=== PATIENT | female | born 1980 | race Caucasian/White ===

== ENCOUNTER → 2016-12-15 | Outpatient (CLI) | payer MEDICAID ==
[~2016-12-15] MED LIST: AMOX500C2 PO; CRUT1EAC16 MC; CYAN10007 PO; HYDR-3812 PO; IBP800T PO; IBUP800T26 PO; METR500T PO; ONDA8TAB13 PO; PREN1TAB39 PO; THIA50TA7 PO; TRAM50TA2 PO; TRM50T PO; VITAMIN A&D; VITAMIN B6 PO
--- OUTSIDE RECORDS SUMMARY | 2016-12-15 15:15 | XMS REPORT | Continuity of Care Document ---
Author Author [facility] Organization [facility] Address Unknown Phone Unavailable Care Team Providers Care Analytical Research Program Manager Name Role Phone [facility] OF PCP Insurance Providers Payer Name Policy Number Subscriber Name Relationship Medicaid [place] [id number] Eric York Self / Same As Patient Advance Directives Directive Response Recorded Date/Time Advance Directives No 04/21/15 9:35pm Health Care Power of Inhalation Therapy Aide No 04/21/15 9:35pm Organ Donor Yes 04/21/15 9:35pm Resuscitation Status Full Code 04/21/15 9:35pm Problems Medical Problems Problem Onset Date Status Cervical radiculopathy Unknown Active Headache Unknown Active Dental caries Unknown Active Gingivitis Unknown Active Dental caries Unknown Active Medications Medication Dose Route Sig Days/Qty Instructions Order Date Discontinued Date Status Vits W-Ca,Fe,Fa(<1MG) 1 Tab PO DAILY 07/05/10 06/14/13 Discontinued Ibuprofen 800 Mg PO GIVE EVERY 8 HRS ON SCHEDULE PRN 30 Qty 06/14/13 10/17/13 Discontinued Thiamine HCl 50 Mg PO DAILY 09/28/13 10/17/13 Discontinued Cyanocobalamin 1,000 Mcg PO DAILY 09/28/13 02/15/15 Discontinued Tramadol HCl 50 Mg PO EVERY 4HRS PRN PAIN 20 Qty 09/28/13 10/17/13 Discontinued [Vitamin B6] PO DAILY 10/17/13 02/15/15 Discontinued [Vitamin A&D] 10/17/13 02/15/15 Discontinued Amoxicillin 2 Each PO THREE TIMES A DAY 60 Qty 02/21/14 02/15/15 Discontinued Tramadol Hcl 50 Mg PO EVERY 4HRS PRN PAIN 14 Qty 02/21/14 02/15/15 Discontinued Ibuprofen (Motrin) 800 Mg PO q8h PRN PAIN 30 Qty 02/21/14 02/15/15 Discontinued Ondansetron 8 Mg PO EVERY 6 HOURS PRN NAUSEA/VOMITING 10 Qty 02/21/14 02/15/15 Discontinued Tramadol Hcl 50 Mg PO EVERY 6 HOURS PRN PAIN PRN PAIN 02/15/15 Active Amoxicillin 1 Each PO THREE TIMES A DAY 21 Qty 04/21/15 Active Social History Social History Problem Response Recorded Date/Time Alcohol Use Occasionally Uses 04/21/2015 9:35pm Recreational Drug Use No 04/21/2015 9:35pm Recent Foreign Travel No 04/21/2015 9:32pm Recent Infectious Disease Exposure No 04/21/2015 9:32pm Hospitalization with Isolation Denies 04/21/2015 9:32pm Sexually Transmitted Disease No 04/21/2015 9:35pm Smoking Status Never a Smoker 04/21/2015 9:35pm Query Response Start Date Stop Date Smoking Status Never a Smoker Hospital Discharge Instructions No hospital discharge instructions. Plan of Care No plan of care. Functional Status No functional status results. Allergies, Adverse Reactions, Alerts Allergen Type Severity Reaction Status Last Updated Sulfa (Sulfonamide Antibiotics) ([id number]) Adverse Reaction Unknown DECREASE KIDNEY FUNCTION Active 02/15/15 Morphine Allergy Unknown SEVERE N/V Active 02/15/15 prednisone ([id number]) Adverse Reaction Mild Active 07/03/09 Immunizations Name Given Type Tetanus Booster (TDap) Unknown Historical Vital Signs Acute Vital Signs Vital Response Date/Time Temperature (Fahrenheit) 99.4 degrees F (97.6 - 99.5) Temperature (Calculated Celsius) 37.05375 degrees C (36.4 - 37.5) Temperature Source Temporal Pulse Rate (adult) 82 bpm (60 - 90) Respiratory Rate 18 bpm (12 - 24) O2 Sat by Pulse Oximetry 98 % (88 - 100) Blood Pressure 120/86 mm Hg Pain Pain Intensity 5 Height (Feet) 5 feet Height (Inches) 6 inches Height (Calculated Centimeters) 167.948812 cm Weight (Pounds) 170 pounds Weight (Calculated Kilograms) 77.516132 kilograms Calculated BMI 27.44 Results No known relevant diagnostic tests, laboratory data and/or discharge summary. Procedures No known history of procedures. Encounters Encounter Location Date/Time Departed Emergency Room Via [facility] 04/21/15 9:22pm Recent Diagnosis
--- NOTE | 2016-12-15 18:53 | Diagnostic Imaging Report ---
Ultrasound of Left lower extremity, nonvascular INDICATION: Left groin pain. FINDINGS: Spectral and color-flow imaging of the arterial system of the left groin was performed. There is generally good arterial and venous flow evident. There is no sign of thrombosis. During the course of the exam, a 1.1 x 2.5 x 0.8 cm hypoechoic lesion with a hyperechoic center was identified in the left groin. Most likely, this represents an enlarged lymph node. The reason for the enlargement of the lymph node, however, is not certain. IMPRESSION: 1. There is no vascular abnormality of the left groin. 2. There does appear to be an enlarged lymph node in this area. Clinical followup is recommended. Dictated by: Dictated on workstation # [id number]
== END ==
LOC: RAD 15:12
PROVIDERS: ATTEND Nurse Practitioner Community Health
DX: R10.32 Left lower quadrant pain (principal)
CPT/HCPCS: 76881

== ENCOUNTER → 2017-01-22 | Outpatient (CLI) | payer MEDICAID ==
[~2017-01-22] MED LIST changes: +CATHETER FLUSH 10 ML SYR IV PRN; +IOHEXOL 350 MG/ML 100 ML (OMNIPAQUE 350) VIAL IV ONE; +NS 100 ML (IVPB) BAG IV ONE
--- OUTSIDE RECORDS SUMMARY | 2017-01-22 13:16 | XMS REPORT | Continuity of Care Document ---
Author Author [facility] Organization [facility] Address Unknown Phone Unavailable Care Team Providers Care Picker And Packer Name Role Phone [facility] PCP Insurance Providers Payer Name Policy Number Subscriber Name Relationship Medicaid [place] [id number] Eric York Self / Same As Patient Advance Directives Directive Response Recorded Date/Time Advance Directives No 04/21/15 9:35pm Health Care Power of Oil Exploration Engineer No 04/21/15 9:35pm Organ Donor Yes 04/21/15 [...] Reaction Status Last Updated Sulfa (Sulfonamide Antibiotics) ([id number]) Adverse Reaction Unknown DECREASE KIDNEY FUNCTION Active 02/15/15 Morphine Allergy Unknown SEVERE N/V Active 02/15/15 prednisone ([id number]) Adverse Reaction Mild Active 07/03/09 Immunizations Name Given Type Tetanus Booster (TDap) Unknown Historical Vital Signs Acute Vital Signs Vital Response Date/Time Temperature (Fahrenheit) 99.4 degrees F (97.6 - 99.5) Temperature (Calculated Celsius) 37.34891 degrees C (36.4 - 37.5) Temperature Source Temporal Pulse Rate (adult) 82 bpm (60 - 90) Respiratory Rate 18 bpm (12 - 24) O2 Sat by Pulse Oximetry 98 % (88 - 100) Blood Pressure 120/86 mm Hg Pain Pain Intensity 5 Height (Feet) 5 feet Height (Inches) 6 inches Height (Calculated Centimeters) 167.637981 cm Weight (Pounds) 170 pounds Weight (Calculated Kilograms) 77.679442 kilograms Calculated BMI 27.44 Results No known relevant diagnostic tests, laboratory data and/or discharge summary. Procedures No known history of procedures. Encounters Encounter Location Date/Time Departed Emergency Room Via [facility] 04/21/15 9:22pm Recent Diagnosis
--- NOTE | 2017-01-22 14:49 | Diagnostic Imaging Report ---
PROCEDURE; CT pelvis with and without contrast. TECHNIQUE: After oral contrast administration, imaging was obtained from the iliac crest to the lesser trochanters. Repeat imaging was performed after intravenous contrast administration. INDICATION: Pelvic pain. CONTRAST: 100 mL of Omnipaque 350 is administered intravenously. FINDINGS: The uterus is some slightly prominent in size with no discrete mass. There is an intrauterine contraceptive device seen. The urinary bladder appears normal. There are calcifications seen on the unenhanced phase in the pelvis that appears to be related to phleboliths with no ureteric or bladder stones seen within the pelvis. There is a minimal amount of free pelvic fluid of uncertain significance. There is no lymphadenopathy or soft tissue mass in the pelvis. The bowel loops are unopacified on this study performed without oral contrast. A small cystic area in the left adnexal region measuring 2.3 cm may relate to a dominant right ovarian follicle. The osseous structures appear grossly unremarkable. IMPRESSION: 1. No lymphadenopathy or soft tissue mass. 2. Suggestion of prominent follicles in the right ovary and nonspecific tiny amount of free pelvic fluid seen. The uterus is slightly prominent in size. Correlate clinically and with pelvic ultrasound as needed. Dictated by: Dictated on workstation # [id number]
== END ==
LOC: RAD 13:13
PROVIDERS: ATTEND Nurse Practitioner Community Health
DX: R10.2 Pelvic and perineal pain (principal); M54.17 Radiculopathy, lumbosacral region
CPT/HCPCS: 72194

== ENCOUNTER 2017-03-03 05:43 | Outpatient (CLI) | payer MEDICAID ==
[~2017-03-03] VITALS: Ht 167.6 cm; Wt 72.6 kg
[~2017-03-03 05:43] MED LIST changes: -CATHETER FLUSH 10 ML SYR IV PRN; -HYDR-3812 PO; -IOHEXOL 350 MG/ML 100 ML (OMNIPAQUE 350) VIAL IV ONE; -METR500T PO; -NS 100 ML (IVPB) BAG IV ONE
[2017-03-06] MEDS ORDERED: HYDR-3812 PO (13:28)
[2017-03-06] MEDS ORDERED: METR500T PO (13:30)
== END 2017-03-03 12:47 ==
LOC: PREOP 05:43
PROVIDERS: ATTEND Surgery
DX: Z01.818 Encounter for other preprocedural examination (principal); K62.5 Hemorrhage of anus and rectum; Z83.71 Family history of colonic polyps

== ENCOUNTER 2017-03-06 10:08 | Day surgery (SDC) | payer MEDICAID ==
[~2017-03-06] VITALS: Ht 167.6 cm; Wt 72.6 kg
[2017-03-06] MEDS ORDERED: CATHETER FLUSH 10 ML SYR IV PRN (10:30)
[2017-03-06] MEDS ORDERED: ceFAZolin 1 GM/NS 50 ML IVPB IV ONE ×2 (10:30)
[2017-03-06 10:38] VITALS: BP 110/79
[2017-03-06] MEDS ORDERED: LACTATED RINGERS 1,000 ML IV PRN (11:01)
[2017-03-06] MEDS ORDERED: SEVOFLURANE (ULTANE) 15 ML INHAL SOLN ONE ×3 (11:05→13:42)
[2017-03-06] MEDS ORDERED: proPOfol 200 MG/20 ML (DIPRIVAN) VIAL IV ONE (11:05)
[2017-03-06] MEDS ORDERED: LIDOCAINE PF 2% 10 ML (XYLOCAINE) AMP ONE (11:05)
[2017-03-06] MEDS ORDERED: ONDANSETRON 4 MG/2 ML (SDV) Z0FRAN ONE ×2 (11:05→14:33)
[2017-03-06] MEDS ORDERED: fentaNYL INJECTION 100 MCG/2 ML AMP ONE (11:06)
[2017-03-06] MEDS ORDERED: MIDAZOLAM 2 MG/2 ML (VERSED) VIAL ONE (11:06)
--- NOTE | 2017-03-06 12:16 | Progress Note-Pre Operative ---
Pre-Operative Progress Note H&P Reviewed The H&P was reviewed, patient examined and no changes noted. Date H&P Reviewed: Mar 06, 2017 Time H&P Reviewed: 12:16 Pre-Operative Diagnosis: pROLAPSING HEMORRHOIDS. FAMILY h/o POLYPS MAYELIN JACQUES MD Mar 06, 2017 12:16 pm
[2017-03-06] MEDS ORDERED: LACTATED RINGERS 1,000 ML IV SCH (13:15)
[2017-03-06] MEDS ORDERED: HYDR-3812 PO (13:28)
--- NOTE | 2017-03-06 13:28 | Progress Note-Post Operative ---
Post-Operative Progess Note Surgeon (s)/Bath Attendant (s) Surgeon MAYELIN JACQUES MD Bath Attendant: Elsa. Pre-Operative Diagnosis pROLAPSING HEMORRHOIDS. FAMILY h/o POLYPS Post-Operative Diagnosis normal colonoscopy. Prolapsing hemorrhoids Post-Op Procedure Note Date of Procedure: Mar 06, 2017 Name of Procedure Performed: colonoscopy to cecum Stapled hemorrhoidopexy Description of the Procedure: see operative report Findings of the Procedure no polyps. Grade 3 hemorrhoids. Anesthesia Type Gen. Estimated blood loss (mL): minimal Specimen(s) collected/removed hemorrhoidal tissue MAYELIN JACQUES MD Mar 06, 2017 1:28 pm
[2017-03-06] MEDS ORDERED: METR500T PO (13:30)
--- NOTE | 2017-03-06 13:31 | Discharge Inst-Simple/Standard ---
Discharge Inst-Standard Discharge Medications New, Converted or Re-Newed RX: RX on Chart Patient Instructions/Follow Up Plan of Care/Instructions/FU: follow-up in 4 weeks. Activity as Tolerated: Yes Discharge Diet: No Restrictions MAYELIN JACQUES MD Mar 06, 2017 1:31 pm
[2017-03-06] MEDS ORDERED: LACTATED RINGERS 1,000 ML IV ONE (13:42)
[2017-03-06] MEDS ORDERED: GLYCOPYRROLATE 0.2 MG/ML (ROBINUL) 2 ML VIAL ONE (13:42)
[2017-03-06] MEDS ORDERED: NEOSTIGMINE (BLOXIVERZ ) 1 MG/1ML 10 ML VIAL ONE (13:42)
[2017-03-06] MEDS ORDERED: ONDANSETRON 4 MG/2 ML (SDV) Z0FRAN IVP PRN (13:45)
[2017-03-06] MEDS ORDERED: MEPERIDINE (DEMEROL) INJ 50 MG/ML IVP PRN (13:45)
[2017-03-06] MEDS ORDERED: HYDROmorphone (DILAUDID) 2 MG/ML VIAL ONE (13:55)
[2017-03-06] MEDS ORDERED: MEPERIDINE (DEMEROL) INJ 50 MG/ML ONE (13:55)
[2017-03-06] MEDS: HYDROmorphone (DILAUDID) 2 MG/ML VIAL IVP PRN ×2 (14:09→14:20)
[2017-03-06 14:50] VITALS: BP 97/67
[2017-03-06] MEDS ORDERED: HYDROcodone/APAP 5 MG/325 MG (LORTAB) TAB ONE (15:11)
[2017-03-06 15:20] VITALS: BP 94/64
[2017-03-06] MEDS ORDERED: HYDROcodone/APAP 5 MG/325 MG (LORTAB) TAB PO ONE (15:30)
[2017-03-06 16:50] VITALS: BP 94/64
--- NOTE | 2017-03-09 11:23 | OPERATIVE REPORT ---
PROCEDURE PHYSICIAN: MAYELIN JACQUES DATE OF PROCEDURE: 03/06/2017 PREOPERATIVE DIAGNOSES: 1. Grade 3 prolapsing hemorrhoids. 2. Rectal bleeding. 3. Family history of polyps. POSTOPERATIVE DIAGNOSES: 1. Grade 3 prolapsing hemorrhoids. 2. Rectal bleeding. 3. Family history of polyps. OPERATION: 1. Colonoscopy. 2. Stapled hemorrhoidopexy. SURGEON: Dr. Jacques. ANESTHESIA: General anesthesia. BLOOD LOSS: Minimal. FLUIDS: 1100 mL crystalloids. TYPE OF WOUND: Type 3 (contaminate wound). INDICATION FOR THE PROCEDURE: This lady presented with symptomatic, prolapsing hemorrhoids with intermittent bleeding. In view of a family history of polyps, it was felt reasonable to perform colonoscopy at the time of surgical management of hemorrhoids. With regard to the latter, minimally invasive technique of stapled hemorrhoidopexy was offered. Informed consent was obtained after reviewing the operative details and complications of postoperative bleeding, infection and recurrence of hemorrhoids. DESCRIPTION OF PROCEDURE: She underwent mechanical bowel preparation including oral antibiotics the day before surgery. Initially, she was placed supine on the gurney and general anesthesia induced. Subsequently, she was turned prone on the operative table and her pressure areas were padded and protected. 1. COLONOSCOPY: Examination of the perianal area revealed multiple skin tags and external hemorrhoids. Physical examination was otherwise unremarkable. The colonoscope was then introduced into the rectum and advanced all the way up to the cecum. The scope was then withdrawn slowly and the mucosa examined in a systematic fashion. FINDINGS: 1. Large internal hemorrhoids. 2. No polyps. 2. STAPLE HEMORRHOIDOPEXY. The circular anal dilator was secured into the rectum using 0 silk sutures. A cuff of rectal mucosa, 4 cm proximal to the dentate line was encircled with a 2-0 Prolene suture. The anvil of the 33 mm EEA stapler introduced into the rectum and the pursestring tied around it. Vaginal examination was performed to ensure intactness of the vaginal musculature. The stapler was then closed, pressure held for 30 seconds and activated. We obtained a cuff of rectal mucosa, 4 cm wide. It was sent for histologic examination. Slight bleeding from the staple line was controlled using cautery. Rigid proctoscopy was performed to ensure intactness of the rectal lumen. The dilator was removed and the patient turned supine before being extubated and taken to the recovery room in a stable condition. Job ID: [id number] Dictated Date: 03/06/2017 13:26:29 Advertising Assistant Date: 03/09/2017 11:10:30 / kenna LAUREANO
== END 2017-03-06 16:55 | disposition home or self-care (01) ==
LOC: SDC 10:08
PROVIDERS: ATTEND Surgery
DX: K64.2 Third degree hemorrhoids (principal); K62.5 Hemorrhage of anus and rectum; Z83.71 Family history of colonic polyps
CPT/HCPCS: 84703; 87081; 88304

== ENCOUNTER 2017-04-24 09:00 | Outpatient (CLI) | payer MEDICAID ==
[~2017-04-24] VITALS: Ht 167.6 cm; Wt 72.6 kg
[~2017-04-24 09:00] MED LIST changes: +HYDR-3812 PO; +METR500T PO
[2017-04-24] MEDS ORDERED: OXYC-465 PO (10:17)
== END 2017-04-24 10:20 ==
LOC: PREOP 09:00
PROVIDERS: ATTEND Surgery
DX: Z01.818 Encounter for other preprocedural examination (principal); K92.1 Melena; K21.9 Gastro-esophageal reflux disease without esophagitis

== ENCOUNTER 2017-04-27 07:51 | Day surgery (SDC) | payer MEDICAID ==
[~2017-04-27] VITALS: Ht 167.6 cm; Wt 72.6 kg
[~2017-04-27 07:51] MED LIST changes: +OXYC-465 PO
[2017-04-27] MEDS ORDERED: NS IV 500 ML 500 ML IV PRN (08:00)
[2017-04-27] MEDS ORDERED: NALOXONE 0.4 MG/ML 1 ML (NARCAN) VIAL IVP PRN (08:00)
[2017-04-27] MEDS ORDERED: HURRICAINE EXT TUBE (BENZOCAINE) XX PRN (08:00)
[2017-04-27] MEDS ORDERED: FLUMAZENIL (ROMAZICON) 0.1 MG/ML 5 ML VIAL INJ PRN (08:00)
[2017-04-27 08:05] VITALS: BP 102/67
[2017-04-27] MEDS ORDERED: NS IV 500 ML 500 ML ONE (08:10)
[2017-04-27] MEDS ORDERED: HURRICAINE EXT TUBE (BENZOCAINE) ONE (10:13)
[2017-04-27] MEDS ORDERED: MIDAZOLAM 2 MG/2 ML (VERSED) VIAL ONE ×3 (10:13)
[2017-04-27] MEDS ORDERED: fentaNYL INJECTION 100 MCG/2 ML AMP ONE (10:13)
[2017-04-27] MEDS: fentaNYL INJECTION 100 MCG/2 ML AMP IVP PRN ×2 (10:15→10:18)
[2017-04-27] MEDS: MIDAZOLAM 2 MG/2 ML (VERSED) VIAL IVP PRN ×2 (10:17→10:20)
--- NOTE | 2017-04-27 10:51 | Conscious Sedation/ASA ---
Conscious Sedation Pre-Proced Time Reviewed: 09:41 ASA Class: 2 Airway Mallampati Classification: (blackfeet appropriate class) I. II. III, IV Lungs Heart ASA score ASA 1: a normal healthy patient ASA 2: a patient with a mild systemic disease (mid diabetes, controlled hypertension, obesity ASA 3: a patient with a severe systemic disease that limits activity (angina , COPD, prior Myocardial infarction) ASA 4: a patient with an incapacitating disease that is a constant threat to life (CHF, renal failure) ASA 5: a moribund patient not expected to survive 24 hrs. (ruptured aneurysm) ASA 6: a declared brain patient whose organs are being harvested. For emergent operations, add the letter E after the classification Grade 1 Sedation Plan: Discussed options with patient/fam Note The patient is an appropriate candidate to undergo the planned procedure, sedation, and anesthesia. The patient immediately re-assessed prior to indication. AMYELIN JACQUES MD Apr 27, 2017 10:51 am
--- NOTE | 2017-04-27 10:52 | Endoscopy Procedure Report ---
Endoscopy Report Date: Apr 27, 2017 Preoperative Diagnosis: GERD. Melena Study Performed: Upper Endoscopy Procedure Instrument: Endoscope Endo Procedure/Findings Findings 1.: Hiatal Hernia, Gastric Ulcer Recommendations: Recommendations: 1.: Start Medication(s) Copy Copies To 1: CAITLYN ARGUETA XAVIER M MD Apr 27, 2017 10:52 am
[2017-04-27] MEDS ORDERED: PANT40TA2 PO (10:53)
--- NOTE | 2017-04-27 10:54 | Discharge Inst-Simple/Standard ---
Discharge Inst-Standard Discharge Medications New, Converted or Re-Newed RX: RX on Chart Patient Instructions/Follow Up Plan of Care/Instructions/FU: Follow-up with her primary; to avoid nonsteroidals Activity as Tolerated: Yes Discharge Diet: No Restrictions MAYELIN JACQUES MD Apr 27, 2017 10:53 am
[2017-04-27 10:55] VITALS: BP 103/62
[2017-04-27 11:25] VITALS: BP 95/58
--- NOTE | 2017-04-27 11:45 | OPERATIVE REPORT ---
DATE OF SERVICE: 04/27/2017 PROCEDURE: Upper gastrointestinal endoscopy with antral biopsy. SURGEON: Mayelin Jacques MD INDICATION FOR PROCEDURE: This lady reported melena and symptoms of gastroesophageal reflux disease. Therefore, it was felt reasonable to perform an upper endoscopy. Informed consent was obtained after reviewing the procedure in detail. DESCRIPTION OF PROCEDURE: She was placed in left lateral decubitus position and her vital signs were monitored. Conscious sedation was achieved using Versed and fentanyl. The flexible gastroscope was then introduced down the esophagus, passed the stomach, into the proximal duodenum. FINDINGS: ESOPHAGUS: Short hiatal hernia with grade II esophagitis. STOMACH: Multiple shallow ulcers were found at the distal stomach and the antral. Biopsy for Helicobacter was obtained. DUODENUM: Normal. She tolerated the procedure well and was taken back to the nursing area in a stable condition. IMPRESSION: Melena and symptoms of reflux disease. Distal gastric and antral ulcers. Helicobacter status pending. Job ID: [id number] DocumentID: [id number] Dictated Date: 04/27/2017 10:28:49 Corporate Account Executive Date: 04/27/2017 11:26:26 Dictated By: MAYELIN JACQUES MD MTDD
== END 2017-04-27 11:38 | disposition home or self-care (01) ==
LOC: ENDO 07:51
PROVIDERS: ATTEND Surgery
DX: K25.9 Gastric ulcer, unspecified as acute or chronic, without hemorrhage or perforation (principal); K44.9 Diaphragmatic hernia without obstruction or gangrene; K21.9 Gastro-esophageal reflux disease without esophagitis
CPT/HCPCS: 84703

== ENCOUNTER → 2017-10-09 | Outpatient (CLI) | payer MEDICAID ==
[~2017-10-09] MED LIST changes: +PANT40TA2 PO
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
--- NOTE | 2017-10-09 18:08 | Diagnostic Imaging Report ---
EXAMINATION: Right knee MRI dated 10/09/2017. TECHNIQUE: Multiplanar, multisequence non contrast-enhanced MRI of the right lower extremity was accomplished. INDICATION: Active in sports, prior meniscal tears. Pain and numb sensation. FINDINGS: The extensor mechanism is intact, and the ACL and PCL are also intact. The lateral collateral ligamentous complex is within normal limits. The MCL is unremarkable. There is no evidence for a tear of the lateral meniscus. Posterior horn of the medial meniscus contains myxoid degeneration, but no discrete tear is appreciated. Cystic changes adjacent to the fibular head are most likely due to a ganglion. A small joint effusion is also noted. Cartilage overlying the patella demonstrates diffuse edema and fissuring with mild thinning. Subchondral cystic change in the patella is also noted. The medial joint compartment cartilage is fairly well preserved as is the lateral joint compartment cartilage. Osseous structures demonstrate no acute abnormalities. IMPRESSION: 1. No evidence for a meniscal or ligamentous nor tendinous tear. 2. Cystic changes adjacent to the fibular head likely due to a ganglion. Mild degenerative findings throughout the joint as discussed above. Dictated by: Dictated on workstation # [id number]
== END ==
LOC: RAD 16:02
PROVIDERS: ATTEND Nurse Practitioner
DX: M17.12 Unilateral primary osteoarthritis, left knee (principal); M85.869 Other specified disorders of bone density and structure, unspecified lower leg
CPT/HCPCS: 73721

== ENCOUNTER 2018-03-23 11:57 | Emergency (ER) | payer MEDICAID, OTHER ==
[~2018-03-23] VITALS: Ht 167.6 cm; Wt 71.7 kg
[~2018-03-23 11:57] MED LIST changes: +ACHD5005 PO; -HYDR-3812 PO
--- OUTSIDE RECORDS SUMMARY | 2018-03-23 12:06 | XMS REPORT ---
Author Author FLORENCIA HINOJOSA Organization [facility] Address [address] [place] [address] Care Team Providers Care Fbi Field Agent Name Role Phone FLORENCIA HINOJOSA Unavailable PROBLEMS Type Condition ICD9-CM Code MZO14-QY Code Onset Dates Condition Status SNOMED Code Problem Other chronic pain G89.29 Active 86138078 Problem Mental status change resolved Z86.59 Active 065357680 Problem Memory loss R41.3 Active 21667013 Problem Intractable migraine without aura and without status migrainosus G43.019 Active 566792484 ALLERGIES Substance Reaction Event Type Date Status Prednisone Unknown Drug Allergy Dec, Active SOCIAL HISTORY Never Assessed PLAN OF CARE VITAL SIGNS Height 66 in 2017-01-16 Weight 168.4 lbs 2017-01-16 Temperature 98.1 degrees Fahrenheit 2017-01-16 Heart Rate 72 bpm 2017-01-16 Respiratory Rate 18 2017-01-16 BMI 27.18 kg/m2 2017-01-16 Blood pressure systolic 102 mmHg 2017-01-16 Blood pressure diastolic 60 mmHg 2017-01-16 MEDICATIONS Medication Instructions Dosage Frequency Start Date End Date Duration Status Propranolol HCl 40 MG Orally Twice a day 1 tablet 12h Nov, 30 day(s) Active Estradiol 1 MG Orally Daily for Three Weeks, 1 Week off 1 tablet Active [place] 7.5-325 MG Orally every 6 hrs 1 tablet as needed 6h Dec, Active RESULTS Name Result Date Reference Range CT Scan : Pelvis w/o & w/ Contrast 2017-01-22 PROCEDURES No Known procedures IMMUNIZATIONS No Known Immunizations MEDICAL (GENERAL) HISTORY Type Description Date Medical History Asthma Medical History Hives since 2000 Surgical History spinal fusion 2014 Surgical History Tonsillectomy Surgical History Appendectomy Surgical History section Surgical History epidural anesthesia/injection Surgical History Hemorrhoidecomy with umu Surgical History colonoscopy
--- OUTSIDE RECORDS SUMMARY | 2018-03-23 12:06 | XMS REPORT ---
Author Author FLORENCIA HINOJOSA Organization [facility] [place] Address [address] [place] [address] Care Team Providers Care Chief Nurse Name Role Phone FLORENCIA HINOJOSA Unavailable PROBLEMS Type Condition ICD9-CM Code HYQ06-DP Code Onset Dates Condition Status SNOMED Code Problem Arthritis M19.90 Active 6472979 Problem Chronic fatigue R53.82 Active 81328349 Problem Intractable migraine without aura and without status migrainosus G43.019 Active 645394181 Problem Memory loss R41.3 Active 91810824 Problem Other chronic pain G89.29 Active 70840645 Problem Mental status change resolved Z86.59 Active [id number] ALLERGIES No Information ENCOUNTERS Encounter Location Date Diagnosis [place] [id number] [place] [address] 55504- 1469 March, [place] [id number] [place] [address] 06807- 5651 Feb, Memory loss R41.3 and 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 [place] [id number] [place] [address] 72763- 9493 Feb, Intractable migraine without aura and without status migrainosus G43.019 [place] [id number] [place] [address] 20474- 9165 Jan, Intractable migraine without aura and without status migrainosus G43.019 [place] [id number] [place] [address] 67362- 9556 Dec, [place] [id number] [place] [address] 22519- 0176 Dec, Intractable migraine without aura and without status migrainosus G43.019 [place] [id number] [place] [address] 77501- 5019 Nov, [facility] [place] [address] [address] 8119 Nov, Chronic fatigue R53.82 and Family history of thyroid disease Z83.49 [facility] [place] [id number] [place] [address] 95107- 1946 17 Nov, 2017 Arthritis M19.90 ; Chronic fatigue R53.82 ; Family history of thyroid disease Z83.49 ; Grade IV hemorrhoids K64.3 and Other chronic pain G89.29 [facility] [place] [id number] [place] [address] 09986- 4510 Nov, Intractable migraine without aura and without status migrainosus G43.019 [facility] [place] [id number] [place] [address] 74095- 9953 Oct, [facility] [place] [id number] [place] [address] 65981- 5547 Oct, Intractable migraine without aura and without status migrainosus G43.019 [facility] [place] [id number] [place] [address] 05906- 1291 Oct, [facility] [place] [id number] [place] [address] 62371- 7140 Oct, [facility] [place] [id number] [place] [address] 00213- 8923 Sep, Tremors of nervous system R25.1 [facility] [place] [id number] [place] [address] 77926- 6066 Sep, [facility] [place] [id number] [place] [address] 61743- 3633 Sep, Intractable migraine without aura and without status migrainosus G43.019 [facility] [place] [id number] [place] [address] 26709- 2546 Sep, [facility] [place] [id number] [place] [address] 66538- 1883 Sep, [facility] [place] [address] [address]- 2366 Sep, Acute medial meniscus tear of right knee, initial encounter S83.241A and Acute lateral meniscus tear of left knee, initial encounter S83.282A [facility] [place] [id number] [place] [address] 15295- 8056 Aug, Intractable migraine without aura and without status migrainosus G43.019 [facility] [place] [id number] [place] [address] 67383- 1336 Aug, [facility] [place] [id number] [place] [address] 75496- 6796 Aug, [facility] [place] [id number] [place] [address] 34159- 2356 Jul, [facility] [place] [id number] [place] [address] 15148- 0384 Jul, [facility] [place] [id number] [place] [address] 93301- 8634 Jul, Intractable migraine without aura and without status migrainosus G43.019 ; Memory loss R41.3 ; Mental status change resolved Z86.59 ; Other chronic pain G89.29 and Pain in right knee M25.561 [facility] [place] [id number] [place] [address] 51676- 7601 Jul, [facility] [place] [id number] [place] [address] 75791- 8178 Jun, Tremors of nervous system R25.1 and Pelvic pain R10.2 [facility] [place] [id number] [place] [address] 71690- 6171 Jun, [facility] [place] [id number] [place] [address] 77394- 9381 Jun, [facility] [place] [id number] [place] [address] 04875- 9916 Jun, [facility] [place] [address], [place] [address]- 9216 May, [facility] [place] [id number] [place] [address] 90681- 1049 May, [facility] [place] [address], [place] [address]- 1736 May, Kidney pain N23 [facility] [place] [id number] [place] [address] 09048- 4883 May, Pelvic pain R10.2 [facility] [address] [place] [address] 35890 -4715 May, Wasp sting, accidental or unintentional, initial encounter T63.461A and Allergic contact dermatitis due to other agents L23.89 [facility] [place] [address], [place] [address]- 6279 May, [facility] [place] [address] [place] [address] 13099- 8840 May, Pelvic pain R10.2 [facility] [place] [address], [place] [address]- 4781 May, [facility] [place] [address], [place] [address]- 5752 Apr, Tremors of nervous system R25.1 ; Blood in stool, gabby K92.1 ; 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 ; Memory loss R41.3 and Intractable migraine without aura and without status migrainosus G43.019 [facility] [place] [address], [place] [address] 2546 Apr, Blood in stool, gabby K92.1 [facility] [place] [address], [place] [address] 2546 Apr, Tremors of nervous system R25.1 ; 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 ; Memory loss R41.3 and Intractable migraine without aura and without status migrainosus G43.019 [facility] [place] [address] [address]- 9837 Apr, [facility] [place] [id number] [place] [address] 23090- 5898 Apr, Tremor R25.1 [facility] [place] [id number] [place] [address] 87658- 1141 March, [facility] [place] [id number] [place] [address] 69289- 3782 March, Cyst of right ovary N83.201 [facility] [place] [id number] [place] [address] 53115- 0483 March, Blood in stool, gabby K92.1 and Other fatigue R53.83 [facility] [place] [id number] [place] [address] 97097- 0629 March, Cyst of right ovary N83.201 [facility] [place] [id number] [place] [address] 85027- 0973 Feb, [facility] [place] [id number] [place] [address] 43013- 6253 Feb, [facility] [place] [id number] [place] [address] 07739- 0346 Feb, Cyst of right ovary N83.201 and Right lower quadrant abdominal pain R10.31 [place] [id number] [place] [address] 48547- 6006 Jan, Pelvic pain R10.2 [facility] [place] [id number] [place] [address] 49957- 9320 Jan, [place] [id number] [place] [address] 69500- 4412 Jan, [facility] [place] [id number] [place] [address] 49106- 7612 Jan, Left groin pain R10.30 [facility] [place] [id number] [place] [address] 77699- 2903 Dec, [facility] [place] [address] [place] [address] 35684- 1518 Dec, Pelvic pain R10.2 and Lumbosacral neuritis M54.17 [facility] [place] [id number] [place] [address] 11995- 8724 Dec, [facility] [place] [id number] [place] [address] 34429- 8251 Dec, Lymph node enlargement R59.9 [facility] [place] [id number] [place] [address] 89508- 4130 Nov, Lymph node enlargement R59.9 [facility] [place] [id number] [place] [address] 91025- 4237 Nov, [facility] [place] [id number] [place] [address] 36770- 2974 Nov, Left groin pain R10.30 [facility] [place] [id number] [place] [address] 94310- 9755 Nov, Varicose vein of leg I83.90 ; Essential hypertension I10 and Short lasting unilateral neuralgiform headache with conjunctival injection and tearing (SUNCT), not intractable G44.059 [facility] [address] [place] [address] 29981 -3020 Jul, Post concussion syndrome F07.81 [facility] [place] [id number] [place] [address] 64294- 9166 Jul, [facility] [place] [id number] [place] [address] 46924- 6553 Oct, [facility] [place] [id number] [place] [address] 52725- 5661 Oct, [facility] [place] [id number] [place] [address] 58158- 1760 Aug, [facility] [place] [id number] [place] [address] 01097- 2236 Aug, Obesity 278.00 [facility] [address], [place] [address]- 5396 Aug, [facility] [address] [place] [address] 91413- 2406 Jul, Obesity 278.00 and Cervical spondylosis without myelopathy 721.0 [facility] [id number] [place] [address] 34730- 4276 March, [facility] [address] [place] [address] 44712- 7843 Feb, Cervical spondylosis 721.0 [facility] [id number] [place] [address] 86310- 5567 Feb, [facility] [address], [place] [address]- 0162 Feb, [facility] [address], [place] [address]- 8894 Jan, [facility] [address], [place] [address]- 5576 Jan, [facility] [address], [place] [address]- 4006 Jan, [facility] [address], [place] [address]- 1396 Jan, [facility] [address], [place] [address]- 2866 Jan, [facility] [id number] [address]- 2546 Jan, [facility] [address], [place] [address]- 6176 Dec, [facility] [address], [place] [address]- 2546 Dec, [facility] [id number] [place] [address]- 3822 06 Dec, 2014 [facility] [address] [id number] [place] [address]- 6698 Dec, [facility] [place] [facility] [address] [id number] [place] [address]- 0310 Nov, [facility] [address] [id number] [place] [address]- 4909 Nov, [facility] [place] [facility] [address] [id number] [place] [address]- 2494 16 Nov, 2014 [facility] [address] [id number] [place] [address]- 2895 15 Nov, 2014 [facility] [place] [facility] [address] [id number] [place] [address]- 9167 Nov, [facility] [address] [id number] [place] [address]- 7869 Nov, [facility] [address] [id number] [place] [address]- 5362 Nov, [facility] [place] [facility] [address] [id number] [place] [address]- 6456 Nov, [facility] [address] [id number] [place] [address]- 0681 Oct, [facility] [place] [facility] [address] [id number] [place] [address]- 6336 Oct, [facility] [place] [facility] [address] [id number] [place] [address]- 1194 Sep, [facility] [place] [facility] [address] [id number] [place] [address]- 6443 Sep, [facility] [place] [facility] [address] [id number] [place] [address]- 9541 Sep, [facility] [place] [facility] [address] [id number] [place] [address]- 5453 Sep, [facility] [place] [facility] [address] [id number] [place] [address]- 7978 Jul, 2013 [facility] [place] [facility] [address] [id number] [place] [address]- 1719 Jul, [facility] [place] [facility] [address] [id number] [place] [address]- 3280 Jul, 2013 [facility] [place] [facility] [address] [id number] [place] [address]- 9045 Jul, 2013 [facility] [place] [facility] [address] [id number] [place] [address]- 1537 Jul, 2013 [facility] [place] [facility] [address] [id number] [place] [address]- 5573 Jul, 2013 [facility] [place] [facility] [address] [id number] [place] [address]- 9172 Jul, [facility] [place] [facility] [address] [id number] [place] [address]- 1464 Jul, [facility] [place] [facility] [address] [id number] [place] [address]- 5566 Jul, [facility] [place] [facility] [address] [id number] [place] [address]- 9547 Jul, [facility] [place] [facility] [address] [id number], [place] [address]- 9187 Jun, [facility] [place] [facility] [address] [id number], [place] [address]- 1278 Jun, [facility] [place] [facility] [address] [id number] [place] [address]- 8772 Jun, [facility] [place] [facility] [address] [id number] [place] [address]- 3251 Jun, [facility] [place] [facility] [address] [id number], [place] [address]- 0398 Jun, [facility] [place] [facility] [address] [id number], [place] [address]- 5097 Jun, [facility] [place] [facility] [address] [id number] [place] [address]- 0662 May, [facility] [place] [facility] [address] [id number] [place] [address]- 0199 May, [facility] [place] [facility] [address] [id number] [place] [address]- 6600 May, [facility] [place] [facility] [address] [id number] [place] [address]- 7802 May, [facility] [place] [facility] [address] [id number] [place] [address]- 5333 May, [facility] [place] [facility] [address] [id number] [place] [address]- 6745 May, [facility] [place] [facility] [address] [id number] [place] [address]- 5009 Apr, [facility] [place] [facility] [address] [id number] [place] [address]- 3682 Apr, [facility] [place] [facility] [address] [id number] [place] [address]- 1361 Apr, [facility] [place] [facility] [address] [facility] [id number] [place] [address]- 9239 Apr, [facility] [place] [facility] [address] [id number] [place] [address]- 0027 Apr, [facility] [place] [facility] [address] [id number], [place] [address]- 8540 Apr, [facility] [place] [facility] [address] [id number] [place] [address]- 7395 Apr, [facility] [place] [facility] [address] [id number] [place] [address]- 8793 Apr, [facility] [place] [facility] [address] [id number] [place] [address]- 3904 Apr, [facility] [place] [facility] [address] [id number] [place] [address]- 0402 Apr, [facility] [place] [facility] [address] [id number] [place] [address]- 1022 Apr, [facility] [place] [facility] [address] [id number] [place] [address]- 7853 Apr, [facility] [place] [facility] [address] [id number] [place] [address]- 7457 Apr, [facility] [place] [facility] [address] [id number] [place] [address]- 9494 March, [facility] [place] [facility] [address] [id number] [place] [address]- 6001 March, [facility] [place] [facility] [address] [id number] [place] [address]- 4264 March, [facility] [place] [facility] [address] [id number] [place] [address]- 3886 March, [facility] [place] [facility] [address] [id number] [place] [address]- 1748 March, [facility] [place] [facility] [address] [id number] [place] [address]- 3961 March, [facility] [place] [facility] [address] [id number] [place] [address]- 1802 Feb, [facility] [place] [facility] [address] [id number] [place] [address]- 6615 Feb, [facility] [place] [facility] [address] [id number] [place] [address]- 0957 Feb, [facility] [place] [facility] [address] [id number] [place] [address]- 3282 Feb, [facility] [place] [facility] [address] [id number] [place] [address]- 1831 Feb, [facility] [place] [facility] [address] [id number] [place] [address]- 9021 18 Feb, 2014 [facility] [place] [facility] [address] [id number] [place] [address]- 5307 15 Feb, 2014 [facility] [place] [facility] [address] [id number] [place] [address]- 7740 15 Feb, 2014 [facility] [place] [facility] [address] [id number] [place] [address]- 5325 Feb, [facility] [place] [facility] [address] [id number] [place] [address]- 5111 Feb, [facility] [place] [facility] [address] [id number] [place] [address]- 8674 Jan, [facility] [place] [facility] [address] [id number] [place] [address]- 9971 Jan, [facility] [place] [facility] [address] [id number] [place] [address]- 2970 Jan, [facility] [place] [facility] [address] [id number] [place] [address]- 2622 Jan, [facility] [place] [facility] [address] [id number] [place] [address]- 7496 Dec, [facility] [place] [facility] [address] [id number] [place] [address]- 8763 Dec, [facility] [place] [facility] [address] [id number] [place] [address] Sep, [facility] [place] [facility] [address] [id number], [place] [address] Sep, [facility] [place] [facility] [address] [id number] [place] [address] Aug, [facility] [place] [facility] [address] [id number] [place] [address] Aug, [facility] [place] [facility] [address] [id number] [place] [address] Aug, [facility] [place] [facility] [address] [facility] [id number], [place] [address] Aug, [facility] [place] [address] [facility] [id number], [place] [address] Aug, [facility] [place] [address] [id number], [place] [address] May, [facility] [place] [address] [facility] [id number], [place] [address] Jan, [facility] [place] [address] [id number] [id number] Jan, [facility] [place] [address] [facility] [id number], [place] [address] Dec, IMMUNIZATIONS No Known Immunizations SOCIAL HISTORY Never Assessed REASON FOR VISIT med refill PLAN OF CARE VITAL SIGNS MEDICATIONS Unknown Medications RESULTS No Results PROCEDURES No Known procedures INSTRUCTIONS MEDICATIONS ADMINISTERED No Known Medications MEDICAL (GENERAL) HISTORY Type Description Date Medical History Asthma Medical History Hives since 2000 Surgical History spinal fusion 2014 Surgical History Tonsillectomy Surgical History Appendectomy Surgical History section Surgical History epidural anesthesia/injection Surgical History Hemorrhoidecomy with umu Surgical History colonoscopy
--- OUTSIDE RECORDS SUMMARY | 2018-03-23 12:07 | XMS REPORT ---
Author Author FLORENCIA HINOJOSA [facility] Address [address] [place] [address] Care Team Providers Care Fleet Assistant Name Role Phone FLORENCIA HINOJOSA Unavailable PROBLEMS Type Condition ICD9-CM Code [id number] Code Onset Dates Condition Status SNOMED Code Problem Memory loss R41.3 Active 51316872 Problem Intractable migraine without aura and without status migrainosus G43.019 Active 263023424 ALLERGIES Unknown Allergies SOCIAL HISTORY No smoking Hx information available PLAN OF CARE VITAL SIGNS MEDICATIONS Unknown Medications RESULTS No Results PROCEDURES No Known procedures IMMUNIZATIONS No Known Immunizations
--- OUTSIDE RECORDS SUMMARY | 2018-03-23 12:07 | XMS REPORT ---
Author Author FLORENCIA HINOJOSA Organization [facility] Address [address] [place] [address] Care Team Providers Care New Client Banking Services Clerk Name Role Phone FLORENCIA HINOJOSA Unavailable PROBLEMS Type Condition ICD9-CM Code DOM79-BL Code Onset Dates Condition Status SNOMED Code Problem Arthritis M19.90 Active 3516904 Problem Chronic fatigue R53.82 Active 59441132 Problem Intractable migraine without aura and without status migrainosus G43.019 Active 118268004 Problem Memory loss R41.3 Active 23739457 Problem Other chronic pain G89.29 Active 77405951 Problem Mental status change resolved Z86.59 Active [id number] ALLERGIES No Information ENCOUNTERS Encounter Location Date Diagnosis [place] [id number] [place] [address] 86092- 3338 March, [place] [id number] [place] [address] 76658- 1380 Feb, Memory loss R41.3 and 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 [place] [id number] [place] [address] 70373- 8221 Feb, Intractable migraine without aura and without status migrainosus G43.019 [place] [id number] [place] [address] 49500- 7215 Jan, Intractable migraine without aura and without status migrainosus G43.019 [place] [id number] [place] [address] 34826- 1371 Dec, [place] [id number] [place] [address] 35671- 6445 Dec, Intractable migraine without aura and without status migrainosus G43.019 [place] [id number] [place] [address] 88518- 9415 Nov, [facility] [address] [address] 2169 Nov, Chronic fatigue R53.82 and Family history of thyroid disease Z83.49 [facility] [id number] [place] [address] 82905- 4212 17 Nov, 2017 Arthritis M19.90 ; Chronic fatigue R53.82 ; Family history of thyroid disease Z83.49 ; Grade IV hemorrhoids K64.3 and Other chronic pain G89.29 [facility] [address] [place] [address] 79037- 0306 Nov, Intractable migraine without aura and without status migrainosus G43.019 [facility] [id number] [place] [address] 15630- 6069 Oct, [facility] [id number] [place] [address] 27514- 1785 Oct, Intractable migraine without aura and without status migrainosus G43.019 [facility] [id number] [place] [address] 52638- 7086 Oct, [facility] [id number] [place] [address] 14909- 8188 Oct, [facility] [id number] [place] [address] 63575- 0741 Sep, Tremors of nervous system R25.1 [facility] [id number] [place] [address] 77133- 6696 Sep, [facility] [address] [place] [address] 21655- 0488 Sep, Intractable migraine without aura and without status migrainosus G43.019 [facility] [id number] [place] [address] 62526- 2546 Sep, [facility] [id number] [place] [address] 07405- 8275 Sep, [facility] [address] [address]- 1603 Sep, Acute medial meniscus tear of right knee, initial encounter S83.241A and Acute lateral meniscus tear of left knee, initial encounter S83.282A [facility] [id number] [place] [address] 50460- 5666 Aug, Intractable migraine without aura and without status migrainosus G43.019 [facility] [id number] [place] [address] 74308- 1296 Aug, [facility] [id number] [place] [address] 24745- 7936 Aug, [facility] [id number] [place] [address] 30914- 4396 Jul, [facility] [id number] [place] [address] 95530- 1043 Jul, [facility] [id number] [place] [address] 69460- 3448 Jul, Intractable migraine without aura and without status migrainosus G43.019 ; Memory loss R41.3 ; Mental status change resolved Z86.59 ; Other chronic pain G89.29 and Pain in right knee M25.561 [facility] [id number] [place] [address] 07019- 7422 Jul, [facility] [id number] [place] [address] 47426- 9791 Jun, Tremors of nervous system R25.1 and Pelvic pain R10.2 [facility] [id number] [place] [address] 49745- 2324 Jun, [facility] [address] [place] [address] 88944- 9703 Jun, [facility] [address] [place] [address] 44341- 5950 Jun, [facility] [address] [address]- 5581 May, [facility] [address] [place] [address] 42918- 4342 May, [facility] [address] [address]- 5986 May, Kidney pain N23 [facility] [id number] [place] [address] 92690- 5050 May, Pelvic pain R10.2 [facility] [address] [place] [address] 14108 -9698 May, Wasp sting, accidental or unintentional, initial encounter T63.461A and Allergic contact dermatitis due to other agents L23.89 [facility] [address] [address]- 4730 May, [facility] [address] [place] [address] 96295- 1405 May, Pelvic pain R10.2 [facility] [address] [address]- 3727 May, [facility] [address] [address]- 7687 Apr, Tremors of nervous system R25.1 ; Blood in stool, gabby K92.1 ; 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 ; Memory loss R41.3 and Intractable migraine without aura and without status migrainosus G43.019 [facility] [address] [address] 2546 Apr, Blood in stool, gabby K92.1 [facility] [address] [address] 2546 Apr, Tremors of nervous system R25.1 ; 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 ; Memory loss R41.3 and Intractable migraine without aura and without status migrainosus G43.019 [facility] [address] [address]- 9019 Apr, [facility] [id number] [place] [address] 20947- 0902 Apr, Tremor R25.1 [facility] [address] [place] [address] 12728- 4060 March, [facility] [address] [place] [address] 91409- 2617 March, Cyst of right ovary N83.201 [facility] [address] [place] [address] 74266- 9858 March, Blood in stool, gabby K92.1 and Other fatigue R53.83 [facility] [address] [place] [address] 18472- 6352 March, Cyst of right ovary N83.201 [facility] [address] [place] [address] 70985- 5019 Feb, [facility] [address] [place] [address] 20116- 2322 Feb, [facility] [address] [place] [address] 26857- 0999 Feb, Cyst of right ovary N83.201 and Right lower quadrant abdominal pain R10.31 [place] [address] [place] [address] 42887- 2038 Jan, Pelvic pain R10.2 [facility] [address] [place] [address] 52244- 3852 Jan, [place] [address] [place] [address] 48779- 9929 Jan, [facility] [address] [place] [address] 80385- 4685 Jan, Left groin pain R10.30 [facility] [address] [place] [address] 43963- 3112 Dec, [facility] [address] [place] [address] 66489- 7358 Dec, Pelvic pain R10.2 and Lumbosacral neuritis M54.17 [facility] [address] [place] [address] 51483- 8508 Dec, [facility] [address] [place] [address] 95209- 3460 Dec, Lymph node enlargement R59.9 [facility] [address] [place] [address] 17309- 4091 Nov, Lymph node enlargement R59.9 [facility] [address] [place] [address] 51939- 1244 Nov, [facility] [address] [place] [address] 01934- 3129 Nov, Left groin pain R10.30 [facility] [address] [place] [address] 54054- 1374 Nov, Varicose vein of leg I83.90 ; Essential hypertension I10 and Short lasting unilateral neuralgiform headache with conjunctival injection and tearing (SUNCT), not intractable G44.059 [facility] [id number] [place] [address] 01805 -3262 Jul, Post concussion syndrome F07.81 [facility] [address] [place] [address] 56352- 8897 Jul, [facility] [address] [place] [address] 60849- 9327 Oct, [facility] [address] [place] [address] 05448- 6948 Oct, [facility] [address] [place] [address] 26327- 7612 Aug, [facility] [address] [place] [address] 95807- 0406 Aug, Obesity 278.00 [facility] [address] [address]- 4326 Aug, [facility] [id number] [place] [address] 38377- 9316 Jul, Obesity 278.00 and Cervical spondylosis without myelopathy 721.0 [facility] [address] [place] [address] 25124- 5596 March, [facility] [id number] [place] [address] 32836- 9227 Feb, Cervical spondylosis 721.0 [facility] [address] [place] [address] 09770- 6831 Feb, [facility] [address] [address]- 1862 Feb, [facility] [address] [address]- 7550 Jan, [facility] [address] [address]- 3589 Jan, [facility] [address] [address]- 8106 Jan, [facility] [address] [address]- 2756 Jan, [facility] [address] [address]- 6416 Jan, [facility] [id number] [address]- 2546 Jan, [facility] [address] [address]- 8606 Dec, [facility] [address] [address]- 2546 Dec, [facility] [id number] [place] [address]- 7474 06 Dec, 2014 [facility] [address] [id number] [place] [address]- 5247 Dec, [facility] [place] [facility] [address] [id number] [place] [address]- 4229 Nov, [facility] [address] [id number] [place] [address]- 3115 Nov, [facility] [place] [facility] [address] [id number] [place] [address]- 8312 16 Nov, 2014 [facility] [address] [id number] [place] [address]- 5137 15 Nov, 2014 [facility] [place] [facility] [address] [id number] [place] [address]- 9426 Nov, [facility] [address] [id number] [place] [address]- 8207 Nov, [facility] [address] [id number] [place] [address]- 9328 Nov, [facility] [place] [facility] [address] [id number] [place] [address]- 6630 Nov, [facility] [address] [id number] [place] [address]- 9723 Oct, [facility] [place] [facility] [address] [id number] [place] [address]- 9272 Oct, [facility] [place] [facility] [address] [id number] [place] [address]- 8872 Sep, [facility] [place] [facility] [address] [id number] [place] [address]- 8254 Sep, [facility] [place] [facility] [address] [id number] [place] [address]- 2635 Sep, [facility] [place] [facility] [address] [id number] [place] [address]- 2038 Sep, [facility] [place] [facility] [address] [id number] [place] [address]- 5538 Jul, 2013 [facility] [place] [facility] [address] [id number] [place] [address]- 2317 Jul, [facility] [place] [facility] [address] [id number] [place] [address]- 4760 Jul, 2013 [facility] [place] [facility] [address] [id number] [place] [address]- 8312 Jul, 2013 [facility] [place] [facility] [address] [id number] [place] [address]- 4859 Jul, 2013 [facility] [place] [facility] [address] [id number] [place] [address]- 8075 Jul, 2013 [facility] [place] [facility] [address] [id number] [place] [address]- 5846 Jul, [facility] [place] [facility] [address] [id number] [place] [address]- 2183 Jul, [facility] [place] [facility] [address] [id number] [place] [address]- 0433 Jul, [facility] [place] [facility] [address] [id number] [place] [address]- 0590 Jul, [facility] [place] [facility] [address] [id number] [address]- 8264 Jun, [facility] [place] [facility] [address] [id number] [address]- 0898 Jun, [facility] [place] [facility] [address] [id number] [place] [address]- 1860 Jun, [facility] [place] [facility] [address] [id number] [place] [address]- 3225 Jun, [facility] [place] [facility] [address] [id number] [address]- 4544 Jun, [facility] [place] [facility] [address] [id number] [address]- 5650 Jun, [facility] [place] [facility] [address] [id number] [place] [address]- 7904 May, [facility] [place] [facility] [address] [id number] [place] [address]- 7064 May, [facility] [place] [facility] [address] [id number] [place] [address]- 0213 May, [facility] [place] [facility] [address] [id number] [place] [address]- 7466 May, [facility] [place] [facility] [address] [id number] [place] [address]- 7174 May, [facility] [place] [facility] [address] [id number] [place] [address]- 7567 May, [facility] [place] [facility] [address] [id number] [place] [address]- 5349 Apr, [facility] [place] [facility] [address] [id number] [place] [address]- 4969 Apr, [facility] [place] [facility] [address] [id number] [place] [address]- 5116 Apr, [facility] [place] [facility] [address] [facility] [id number] [place] [address]- 6103 Apr, [facility] [place] [facility] [address] [id number] [place] [address]- 8254 Apr, [facility] [place] [facility] [address] [id number] [address]- 3969 Apr, [facility] [place] [facility] [address] [id number] [place] [address]- 6030 Apr, [facility] [place] [facility] [address] [id number] [place] [address]- 1299 Apr, [facility] [place] [facility] [address] [id number] [place] [address]- 5508 Apr, [facility] [place] [facility] [address] [id number] [place] [address]- 7874 Apr, [facility] [place] [facility] [address] [id number] [place] [address]- 7560 Apr, [facility] [place] [facility] [address] [id number] [place] [address]- 0182 Apr, [facility] [place] [facility] [address] [id number] [place] [address]- 7631 Apr, [facility] [place] [facility] [address] [id number] [place] [address]- 6914 March, [facility] [place] [facility] [address] [id number] [place] [address]- 5183 March, [facility] [place] [facility] [address] [id number] [place] [address]- 1565 March, [facility] [place] [facility] [address] [id number] [place] [address]- 9127 March, [facility] [place] [facility] [address] [id number] [place] [address]- 4208 March, [facility] [place] [facility] [address] [id number] [place] [address]- 0291 March, [facility] [place] [facility] [address] [id number] [place] [address]- 2996 Feb, [facility] [place] [facility] [address] [id number] [place] [address]- 8301 Feb, [facility] [place] [facility] [address] [id number] [place] [address]- 1289 Feb, [facility] [place] [facility] [address] [id number] [place] [address]- 8605 Feb, [facility] [place] [facility] [address] [id number] [place] [address]- 1389 Feb, [facility] [place] [facility] [address] [id number] [place] [address]- 2727 18 Feb, 2014 [facility] [place] [facility] [address] [id number] [place] [address]- 5964 15 Feb, 2014 [facility] [place] [facility] [address] [id number] [place] [address]- 0812 15 Feb, 2014 [facility] [place] [facility] [address] [id number] [place] [address]- 8616 Feb, [facility] [place] [facility] [address] [id number] [place] [address]- 2170 Feb, [facility] [place] [facility] [address] [id number] [place] [address]- 0460 Jan, [facility] [place] [facility] [address] [id number] [place] [address]- 7527 Jan, [facility] [place] [facility] [address] [id number] [place] [address]- 0177 Jan, [facility] [place] [facility] [address] [id number] [place] [address]- 3381 Jan, [facility] [place] [facility] [address] [id number] [place] [address]- 7139 Dec, [facility] [place] [facility] [address] [id number] [place] [address]- 8595 Dec, [facility] [place] [facility] [address] [id number] [place] [address]- 5488 Sep, [facility] [place] [facility] [address] [id number] [address]- 6509 Sep, [facility] [place] [facility] [address] [id number] [place] [address]- 9244 Aug, [facility] [place] [facility] [address] [id number] [place] [address]- 7547 Aug, [facility] [place] [facility] [address] [id number] [place] [address]- 5791 Aug, [facility] [place] [facility] [address] [facility] [id number] [address]- 2291 Aug, [facility] [address] [facility] [id number] [address]- 0537 Aug, [facility] [id number] [address]- 5715 May, [facility] [address] [facility] [id number] [address]- 4972 Jan, [facility] [id number] [address]- 4115 Jan, [facility] [address] [facility] [id number] [address]- 0987 Dec, IMMUNIZATIONS No Known Immunizations SOCIAL HISTORY Never Assessed REASON FOR VISIT PLAN OF CARE VITAL SIGNS MEDICATIONS Unknown [...]
--- OUTSIDE RECORDS SUMMARY | 2018-03-23 12:07 | XMS REPORT ---
Author Author FLORENCIA HINOJOSA [facility] Address [address] [place] [address] Care Team Providers Care Social Media Marketing Specialist Name Role Phone FLORENCIA HINOJOSA Unavailable PROBLEMS Type Condition ICD9-CM Code CEM53-KU Code Onset Dates Condition Status SNOMED Code Problem Other chronic pain G89.29 Active 35525322 Problem Mental status change resolved Z86.59 Active 638821895 Problem Memory loss R41.3 Active 14295227 Problem Intractable migraine without aura and without status migrainosus G43.019 Active [id number] ALLERGIES No Information SOCIAL HISTORY Never Assessed PLAN OF CARE VITAL SIGNS MEDICATIONS Unknown [...]
--- OUTSIDE RECORDS SUMMARY | 2018-03-23 12:08 | XMS REPORT ---
Author Author FLORENCIA HINOJOSA [facility] Address [address] [place] [address] Care Team Providers Care Process Treater Name Role Phone FLORENCIA HINOJOSA Unavailable PROBLEMS Type Condition ICD9-CM Code QQT52-WU Code Onset Dates Condition Status SNOMED Code Problem Memory loss R41.3 Active 15482224 Problem Intractable migraine without aura and without status migrainosus G43.019 Active 925644567 ALLERGIES Unknown Allergies SOCIAL HISTORY No smoking Hx information available PLAN OF CARE VITAL SIGNS MEDICATIONS Unknown Medications RESULTS Name Result Date Reference Range Ultrasound : Soft Tissue (specify location) 2016-12-15 PROCEDURES No Known procedures IMMUNIZATIONS No Known Immunizations
--- OUTSIDE RECORDS SUMMARY | 2018-03-23 12:08 | XMS REPORT ---
Author Author FLORENCIA HINOJOSA [facility] Address [address] [place] [address] Care Team Providers Care Sap Solution Manager Consultant Name Role Phone FLORENCIA HINOJOSA Unavailable PROBLEMS Type Condition ICD9-CM Code [id number]-JU Code Onset Dates Condition Status SNOMED Code Problem Other chronic pain G89.29 Active 80397098 Problem Mental status change resolved Z86.59 Active 095640870 Problem Memory loss R41.3 Active 20553765 Problem Intractable migraine without aura and without status migrainosus G43.019 Active 302690641 ALLERGIES Substance Reaction Event Type Date Status Prednisone Unknown Drug Allergy Apr, Active SOCIAL HISTORY Never Assessed PLAN OF CARE Activity Details Follow Up 4 Weeks Reason:tremor VITAL SIGNS Height 66 in 2017-04-24 Weight 162.6 lbs 2017-04-24 Temperature 98.0 degrees Fahrenheit 2017-04-24 Heart Rate 84 bpm 2017-04-24 Respiratory Rate 18 2017-04-24 BMI 26.24 kg/m2 2017-04-24 Blood pressure systolic 118 mmHg 2017-04-24 Blood pressure diastolic 76 mmHg 2017-04-24 MEDICATIONS Medication Instructions Dosage Frequency Start Date End Date Duration Status Diclofenac Sodium 75 MG Orally Twice a day 1 tablet with food or milk 12h Feb, Apr, 30 day(s) Active Depakote 250 MG Orally 2 times a day 1 tablet 12h Apr, Active Oxycodone HCl 10 mg Orally 3 times a day 1 tablet as needed 8h March, Active Estradiol 1 MG Orally Daily for Three Weeks, 1 Week off 1 tablet Active RESULTS No Results PROCEDURES No Known procedures IMMUNIZATIONS No Known Immunizations MEDICAL (GENERAL) HISTORY Type Description Date Medical History Asthma Medical History Hives since 2000 Surgical History spinal fusion 2014 Surgical History Tonsillectomy Surgical History Appendectomy Surgical History section Surgical History epidural anesthesia/injection Surgical History Hemorrhoidecomy with umu Surgical History colonoscopy
--- OUTSIDE RECORDS SUMMARY | 2018-03-23 12:08 | XMS REPORT ---
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 Name Role Phone SINDHU Valerio Unavailable PROBLEMS Type Condition ICD9-CM Code HZF27-HC Code Onset Dates Condition Status SNOMED Code Problem Arthritis M19.90 Active 6682733 Problem Chronic fatigue R53.82 Active 04088576 Problem Intractable migraine without aura and without status migrainosus G43.019 Active 162283454 Problem Memory loss R41.3 Active 73807116 Problem Other chronic pain G89.29 Active 36709955 Problem Mental status change resolved Z86.59 Active 494031259 ALLERGIES Substance Reaction Event Type Date Status SulfADIAZINE Unknown Drug Allergy May, Active Prednisone nausea and vomiting Drug Allergy May, Active Morphine Sulfate nausea and vomiting Drug Allergy May, Active ENCOUNTERS Encounter Location Date Diagnosis [place] [address] [address]- [address] March, [place] [address] 39204- 9436 Feb, Memory loss R41.3 and 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 [facility] [address] [place] [id number] [place] [address] 12543- 5802 Feb, Intractable migraine without aura and without status migrainosus G43.019 [facility] [address] 65852- 9030 Jan, Intractable migraine without aura and without status migrainosus G43.019 [facility] [address] [place] [id number] [place] [address] 74382- 5676 Dec, [facility] [address] 59177- 5874 Dec, Intractable migraine without aura and without status migrainosus G43.019 [facility] [address] [place] [id number] [place] [address] 51454- 7548 Nov, [facility] [address] [place] [id number] [place] [id number] Nov, Chronic fatigue R53.82 and Family history of thyroid disease Z83.49 [place] [address] [place] [id number] [place] [address] 656834- 5591 Nov, Arthritis M19.90 ; Chronic fatigue R53.82 ; Family history of thyroid disease Z83.49 ; Grade IV hemorrhoids K64.3 and Other chronic pain G89.29 [place] [address] [place] [id number] [place] [address] 87183- 5050 Nov, Intractable migraine without aura and without status migrainosus G43.019 [place] [address] [id number] [place] [address] 42382- 1139 Oct, [place] [address] [place] [id number] [place] [address] 46011- 2346 Oct, Intractable migraine without aura and without status migrainosus G43.019 [place] [address] [id number] [place] [address] 83107- 7156 Oct, [place] [address] [place] [id number] [place] [address] 99320- 6499 Oct, [facility] [address] [place] [id number] [place] [address] 34906- 6343 Sep, Tremors of nervous system R25.1 [place] [address] 03501- 4203 Sep, [place] [address] [place] [id number] [place] [address] 26333- 7912 Sep, Intractable migraine without aura and without status migrainosus G43.019 [place] [address] [place] [address]- 6209 Sep, [facility] [address] [place] [id number] [place] [address] 94822- 2533 Sep, [facility] [address] [id number] [place] [address] 76260- 5019 Sep, Acute medial meniscus tear of right knee, initial encounter S83.241A and Acute lateral meniscus tear of left knee, initial encounter S83.282A [facility] [address] [id number] [place] [address] 19906- 6239 Aug, Intractable migraine without aura and without status migrainosus G43.019 [facility] [address] [place] [id number] [place] [address] 15615- 7849 Aug, [facility] [id number] [place] [address] 30548- 5593 Aug, [facility] [address] [id number] [place] [address] 70478- 6678 Jul, [facility] [address] [id number] [place] [address] 58875- 3167 Jul, [facility] [address] [place] [id number] [place] [address] 19498- 5028 Jul, Intractable migraine without aura and without status migrainosus G43.019 ; Memory loss R41.3 ; Mental status change resolved Z86.59 ; Other chronic pain G89.29 and Pain in right knee M25.561 [facility] [address] [id number] [place] [address] 52421- 4273 Jul, [facility] [address] [place] [id number] [place] [address] 98695- 8155 Jun, Tremors of nervous system R25.1 and Pelvic pain R10.2 [facility] [address] [place] [id number] [place] [address] 73809- 4034 Jun, [facility] [address] [address] [id number] [place] [address] 12626- 4745 Jun, [facility] [id number] [place] [address] 09934- 4554 Jun, [facility] [id number] [place] [address] 04993- 5489 May, [facility] [address] [place] [id number] [place] [address] 24625- 5937 May, [facility] [address] [place] [id number] [place] [address] 74325- 4065 May, Kidney pain N23 [facility] [address] [place] [id number] [place] [address] 98994- 0386 May, Pelvic pain R10.2 [facility] [address] [place] [id number] [place] [address] 75106 -6723 May, Wasp sting, accidental or unintentional, initial encounter T63.461A and Allergic contact dermatitis due to other agents L23.89 [facility] [address] [place] [id number] [place] [address] 93219- 1043 May, [facility] [address] [place] [id number] [place] [address] 96403- 1412 May, Pelvic pain R10.2 [facility] [address] [place] [id number] [place] [address] 49460- 1505 May, [facility] [address] [place] [id number] [place] [address] 01018- 8870 Apr, Tremors of nervous system R25.1 ; Blood in stool, gabby K92.1 ; 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 ; Memory loss R41.3 and Intractable migraine without aura and without status migrainosus G43.019 [facility] [address] [place] [address] 00757- 4308 Apr, Blood in stool, gabby K92.1 [facility] [address] [place] [id number] [place] [address] 96028- 3287 Apr, Tremors of nervous system R25.1 ; 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 ; Memory loss R41.3 and Intractable migraine without aura and without status migrainosus G43.019 [facility] [address] [address] [id number] [place] [address] 17933- 8471 Apr, [facility] [address] [address] [id number] [place] [address] 78177- 4061 Apr, Tremor R25.1 [facility] [address] [place] [id number] [place] [address] 61950- 4410 March, [facility] [address] [place] [id number] [place] [address] 25524- 7793 March, Cyst of right ovary N83.201 [facility] [address] [place] [id number] [place] [address] 33889- 1548 March, Blood in stool, gabby K92.1 and Other fatigue R53.83 [facility] [address] [place] [id number] [place] [address] 46082- 3728 March, Cyst of right ovary N83.201 [facility] [address] [place] [id number] [place] [address] 13318- 6101 Feb, [facility] [address] [place] [id number] [place] [address] 98455- 3618 Feb, [facility] [address] [place] [id number] [place] [address] 37075- 7177 Feb, Cyst of right ovary N83.201 and Right lower quadrant abdominal pain R10.31 [facility] [address] [place] [id number] [place] [address] 93388- 9262 Jan, Pelvic pain R10.2 [facility] [address] [place] [id number] [place] [address] 26002- 6053 Jan, [facility] [address] [place] [id number] [place] [address] 29146- 6103 Jan, [facility] [address] [place] [id number] [place] [address] 96888- 7600 Jan, Left groin pain R10.30 [facility] [address] [place] [id number] [place] [address] 45531- 3667 Dec, [facility] [address] [place] [id number] [place] [address] 70993- 2765 Dec, Pelvic pain R10.2 and Lumbosacral neuritis M54.17 [facility] [address] [place] [id number] [place] [address] 70458- 7629 Dec, [facility] [address] [place] [id number] [place] [address] 20512- 8214 Dec, Lymph node enlargement R59.9 [facility] [address] [place] [id number] [place] [address] 39112- 6856 Nov, Lymph node enlargement R59.9 [facility] [address] [place] [id number] [place] [address] 72850- 1920 Nov, [facility] [address] [place] [id number] [place] [address] 50266- 0779 Nov, Left groin pain R10.30 [facility] [address] [place] [id number] [place] [address] 59091- 7995 Nov, Varicose vein of leg I83.90 ; Essential hypertension I10 and Short lasting unilateral neuralgiform headache with conjunctival injection and tearing (SUNCT), not intractable G44.059 [facility] [id number] [place] [address] 27841 -7453 07 Jul, 2016 Post concussion syndrome F07.81 [facility] [address] [id number] [place] [address] 29019- 2723 Jul, [facility] [address] [id number] [place] [address] 28433- 6077 Oct, [facility] [address] [place] [id number] [place] [address] 70578- 8683 Oct, [facility] [address] [facility] [id number] [address]- 4846 Aug, [facility] [address] [address]- 9416 Aug, Obesity 278.00 [facility] [address] [place] [id number] [address]- 8686 Aug, [facility] [address] [address]- 0066 Jul, Obesity 278.00 and Cervical spondylosis without myelopathy 721.0 [facility] [address] [address]- 0276 March, [facility] [address] [address]- 2976 Feb, Cervical spondylosis 721.0 [facility] [address] [address]- 1506 Feb, [facility] [address], [place] [address]- 4768 Feb, [facility] [address] [address]- 5436 Jan, [facility] [address], [place] [address] 2546 Jan, [facility] [address], [place] [address]- 2546 Jan, [facility] [address] [place] [id number] [address]- 2546 Jan, [facility] [address] [place] [address]- 2546 Jan, [facility] [address] [id number] [address]- 2546 Jan, [facility] [address] [address]- 5160 Dec, [facility] [place] [facility] [address] [id number] [place] [address]- 8783 Dec, [facility] [place] [facility] [address] [id number] [place] [address]- 9082 Dec, [facility] [place] [facility] [address] [id number] [place] [address]- 8443 Dec, [facility] [place] [facility] [address] [id number] [place] [address]- 0204 Nov, [facility] [place] [facility] [address] [id number] [place] [address]- 0392 Nov, [facility] [place] [facility] [address] [id number] [place] [address]- 5809 Nov, [facility] [place] [facility] [address] [id number] [place] [address]- 5559 Nov, [facility] [place] [facility] [address] [id number] [place] [address]- 9152 Nov, [facility] [place] [facility] [address] [id number] [place] [address]- 5167 Nov, [facility] [place] [facility] [address] [id number] [place] [address]- 8959 Nov, [facility] [place] [facility] [address] [id number] [place] [address]- 5318 Nov, [facility] [place] [facility] [address] [id number], [place] [address]- 0775 Oct, [facility] [place] [facility] [address] [id number] [place] [address]- 6805 Oct, [facility] [place] [facility] [address] [id number] [place] [address]- 0382 Sep, [facility] [place] [facility] [address] [id number] [place] [address]- 9385 Sep, [facility] [place] [facility] [address] [id number] [place] [address]- 9158 10 Sep, 2014 [facility] [place] [facility] [address] [id number] [place] [address]- 1580 10 Sep, 2014 [facility] [place] [facility] [address] [id number] [place] [address] 2546 29 Jul, 2013 [facility] [place] [facility] [address] [id number] [place] [address] 2548 29 Jul, 2013 [facility] [place] [facility] [address] [id number] [place] [address] 2540 Jul, 2013 [facility] [place] [facility] [address] [id number] [place] [address]- 5640 Jul, 2013 [facility] [place] [facility] [address] [id number] [place] [address]- 5659 Jul, 2013 [facility] [place] [facility] [address] [id number] [place] [address]- 5109 Jul, 2013 [facility] [place] [facility] [address] [id number] [place] [address]- 2545 Jul, 2013 [facility] [place] [facility] [address] [id number] [place] [address] 254 Jul, 2013 [facility] [place] [facility] [address] [id number] [place] [address]- 2547 Jul, [facility] [place] [facility] [address] [id number] [place] [address]- 2544 Jul, 2013 [facility] [place] [facility] [address] [id number] [place] [address]- 9503 Jun, [facility] [place] [facility] [address] [id number] [place] [address]- 7085 Jun, [facility] [place] [facility] [address] [id number] [place] [address]- 2547 Jun, [facility] [place] [facility] [address] [id number] [place] [address]- 0320 Jun, [facility] [place] [facility] [address] [id number] [place] [address]- 0228 Jun, [facility] [place] [facility] [address] [id number] [place] [address]- 2758 Jun, [facility] [place] [facility] [address] [id number] [place] [address]- 6172 May, [facility] [place] [facility] [address] [id number] [place] [address]- 5735 May, [facility] [place] [facility] [address] [id number] [place] [address]- 2276 May, [facility] [place] [facility] [address] [id number] [place] [address]- 1025 May, [facility] [place] [facility] [address] [id number] [place] [address]- 9458 May, [facility] [place] [facility] [address] [id number] [place] [address]- 3766 May, [facility] [place] [facility] [address] [id number] [place] [address]- 5659 Apr, [facility] [place] [facility] [address] [id number] [place] [address]- 2764 Apr, [facility] [place] [facility] [address] [id number] [place] [address]- 6182 Apr, [facility] [place] [facility] [address] [id number] [place] [address]- 2908 Apr, [facility] [place] [facility] [address] [id number] [place] [address]- 1677 Apr, [facility] [place] [facility] [address] [id number] [place] [address]- 4437 Apr, [facility] [place] [facility] [address] [id number] [place] [address]- 7819 Apr, [facility] [place] [facility] [address] [id number] [place] [address]- 2560 Apr, [facility] [place] [facility] [address] [id number] [place] [address]- 9490 Apr, [facility] [place] [facility] [address] [id number] [place] [address]- 9686 Apr, [facility] [place] [facility] [address] [id number] [place] [address]- 7995 Apr, [facility] [place] [facility] [address] [id number] [place] [address]- 2741 Apr, [facility] [place] [facility] [address] [id number] [place] [address]- 4532 Apr, [facility] [place] [facility] [address] [id number] [place] [address]- 0173 March, [facility] [place] [facility] [address] [id number] [place] [address]- 5680 March, [facility] [place] [facility] [address] [id number] [place] [address]- 9163 March, [facility] [place] [facility] [address] [id number] [place] [address]- 1509 March, [facility] [place] [facility] [address] [id number] [place] [address]- 1948 March, [facility] [place] [facility] [address] [id number] [place] [address]- 6405 March, [facility] [place] [facility] [address] [id number] [place] [address]- 3578 Feb, [facility] [place] [facility] [address] [id number] [place] [address]- 4909 Feb, [facility] [place] [facility] [address] [id number] [place] [address]- 1308 Feb, [facility] [place] [facility] [address] [id number] [place] [address]- 8900 Feb, [facility] [place] [facility] [address] [id number] [place] [address]- 3071 18 Feb, 2014 [facility] [place] [facility] [address] [id number] [place] [address]- 4758 18 Feb, 2014 [facility] [place] [facility] [address] [id number] [place] [address]- 2780 15 Feb, 2014 [facility] [place] [facility] [address] [id number] [place] [address]- 0567 15 Feb, 2014 [facility] [place] [facility] [address] [id number] [place] [address]- 2989 Feb, [facility] [place] [facility] [address] [id number] [place] [address]- 7079 Feb, [facility] [place] [facility] [address] [id number] [place] [address]- 0820 Jan, [facility] [place] [facility] [address] [id number] [place] [address]- 5998 Jan, [facility] [place] [facility] [address] [id number] [place] [address]- 5643 Jan, [facility] [place] [facility] [address] [id number] [place] [address]- 2772 Jan, [facility] [place] [facility] [address] [id number] [place] [address]- 6309 Dec, [facility] [place] [facility] [address] [id number] [place] [address]- 7407 Dec, [facility] [place] [facility] [address] [id number] [place] [address]- 0090 Sep, [facility] [place] [facility] [address] [id number] [place] [address]- 0126 Sep, [facility] [place] [facility] [address] [id number] [place] [address]- 4636 Aug, [facility] [place] [facility] [address] [id number] [place] [address]- 6192 Aug, [facility] [address] [facility] [id number], [place] [address]- 2546 Aug, [facility] [address] [facility] [id number], [place] [address]- 2546 Aug, [facility] [address] [facility] [id number], [place] [address]- 2546 Aug, [facility] [address] [facility] [id number], [place] [address]- 2546 May, [facility] [address] [facility] [id number], [place] [address]- 2546 Jan, [facility] [id number] [address]- 2546 Jan, [facility] [address] [id number], [place] [address]- 2546 Dec, IMMUNIZATIONS No Known Immunizations SOCIAL HISTORY Never Assessed REASON FOR VISIT stung by a wasp last night on right outter upper calf (near knee). area is red and painful and itches. pt reports she did remove the stinger last night. parth PLAN OF CARE Activity Details Follow Up prn Reason: VITAL SIGNS Height 66 in 2017-06-04 Weight 159.8 lbs 2017-06-04 Temperature 98.2 degrees Fahrenheit 2017-06-04 Heart Rate 76 bpm 2017-06-04 Respiratory Rate 18 2017-06-04 BMI 25.79 kg/m2 2017-06-04 Blood pressure systolic 116 mmHg 2017-06-04 Blood pressure diastolic 64 mmHg 2017-06-04 MEDICATIONS Medication Instructions Dosage Frequency Start Date End Date Duration Status Oxycodone HCl 10 MG Orally 4 times a day 1 tablet as needed 6h May, 28 days Active Depakote 500 MG Orally 2 times a day 1 tablet 12h Apr, Active RESULTS No Results PROCEDURES No Known procedures INSTRUCTIONS MEDICATIONS ADMINISTERED No Known Medications MEDICAL (GENERAL) HISTORY Type Description Date Medical History Asthma Medical History Hives since 2000 Surgical History spinal fusion 2015 Surgical History Tonsillectomy Surgical History Appendectomy Surgical History section Surgical History epidural anesthesia/injection Surgical History Hemorrhoidecomy with umu Surgical History colonoscopy
--- OUTSIDE RECORDS SUMMARY | 2018-03-23 12:08 | XMS REPORT ---
Author Author FLORENCIA HINOJOSA Organization [facility] Address [address] [place] [address] Care Team Providers Care Revenue Cycle Administrator Name Role Phone FLORENCIA HINOJOSA Unavailable PROBLEMS Type Condition ICD9-CM Code HFH42-OJ Code Onset Dates Condition Status SNOMED Code Problem Arthritis M19.90 Active 6344281 Problem Chronic fatigue R53.82 Active 82594965 Problem Intractable migraine without aura and without status migrainosus G43.019 Active 604940242 Problem Memory loss R41.3 Active 42814970 Problem Other chronic pain G89.29 Active 09774799 Problem Mental status change resolved Z86.59 Active [id number] ALLERGIES No Information ENCOUNTERS Encounter Location Date Diagnosis [place] [id number] [place] [address] 49646- 6893 March, [place] [id number] [place] [address] 50582- 2702 Feb, Memory loss R41.3 and 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 [place] [id number] [place] [address] 12814- 3419 Feb, Intractable migraine without aura and without status migrainosus G43.019 [place] [id number] [place] [address] 22667- 8895 Jan, Intractable migraine without aura and without status migrainosus G43.019 [place] [id number] [place] [address] 92336- 5129 Dec, [place] [id number] [place] [address] 24682- 6104 Dec, Intractable migraine without aura and without status migrainosus G43.019 [place] [id number] [place] [address] 82812- 6114 Nov, [facility] [address], [place] [address] 6081 Nov, Chronic fatigue R53.82 and Family history of thyroid disease Z83.49 [facility] [id number] [place] [address] 25586- 8867 17 Nov, 2017 Arthritis M19.90 ; Chronic fatigue R53.82 ; Family history of thyroid disease Z83.49 ; Grade IV hemorrhoids K64.3 and Other chronic pain G89.29 [facility] [id number] [place] [address] 25936- 2043 Nov, Intractable migraine without aura and without status migrainosus G43.019 [facility] [id number] [place] [address] 08196- 7110 Oct, [facility] [id number] [place] [address] 16304- 9978 Oct, Intractable migraine without aura and without status migrainosus G43.019 [facility] [id number] [place] [address] 87073- 1307 Oct, [facility] [id number] [place] [address] 43419- 7753 Oct, [facility] [id number] [place] [address] 42387- 6860 Sep, Tremors of nervous system R25.1 [facility] [id number] [place] [address] 11040- 2396 Sep, [facility] [id number] [place] [address] 93528- 1380 Sep, Intractable migraine without aura and without status migrainosus G43.019 [facility] [id number] [place] [address] 97132- 2546 Sep, [facility] [id number] [place] [address] 06355- 1713 Sep, [facility] [address], [place] [address]- 0955 Sep, Acute medial meniscus tear of right knee, initial encounter S83.241A and Acute lateral meniscus tear of left knee, initial encounter S83.282A [facility] [id number] [place] [address] 20430- 0396 Aug, Intractable migraine without aura and without status migrainosus G43.019 [facility] [id number] [place] [address] 72228- 6436 Aug, [facility] [id number] [place] [address] 60633- 4696 Aug, [facility] [id number] [place] [address] 50054- 9596 Jul, [facility] [id number] [place] [address] 42124- 4940 Jul, [facility] [id number] [place] [address] 75596- 4249 Jul, Intractable migraine without aura and without status migrainosus G43.019 ; Memory loss R41.3 ; Mental status change resolved Z86.59 ; Other chronic pain G89.29 and Pain in right knee M25.561 [facility] [id number] [place] [address] 53293- 7042 Jul, [facility] [id number] [place] [address] 25857- 9711 Jun, Tremors of nervous system R25.1 and Pelvic pain R10.2 [facility] [id number] [place] [address] 06303- 2407 Jun, [facility] [id number] [place] [address] 04145- 2402 Jun, [facility] [id number] [place] [address] 89000- 4821 Jun, [facility] [address], [place] [address]- 7386 May, [facility] [id number] [place] [address] 82317- 3162 May, [facility] [address], [place] [address]- 0203 May, Kidney pain N23 [facility] [id number] [place] [address] 83620- 4276 May, Pelvic pain R10.2 [facility] [address] [place] [address] 69713 -3691 May, Wasp sting, accidental or unintentional, initial encounter T63.461A and Allergic contact dermatitis due to other agents L23.89 [facility] [address], [place] [address]- 6797 May, [facility] [address] [place] [address] 87114- 0162 May, Pelvic pain R10.2 [facility] [address], [place] [address]- 5014 May, [facility] [address], [place] [address]- 3923 Apr, Tremors of nervous system R25.1 ; Blood in stool, gabby K92.1 ; 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 ; Memory loss R41.3 and Intractable migraine without aura and without status migrainosus G43.019 [facility] [address], [place] [address] 2546 Apr, Blood in stool, gabby K92.1 [facility] [address], [place] [address] 2546 Apr, Tremors of nervous system R25.1 ; 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 ; Memory loss R41.3 and Intractable migraine without aura and without status migrainosus G43.019 [facility] [address] [place] [address]- 3214 Apr, [facility] [id number] [place] [address] 12656- 6638 Apr, Tremor R25.1 [facility] [id number] [place] [address] 15968- 5212 March, [facility] [id number] [place] [address] 93593- 3854 March, Cyst of right ovary N83.201 [facility] [id number] [place] [address] 70528- 8716 March, Blood in stool, gabby K92.1 and Other fatigue R53.83 [facility] [id number] [place] [address] 24231- 1861 March, Cyst of right ovary N83.201 [facility] [id number] [place] [address] 17762- 9467 Feb, [facility] [id number] [place] [address] 37358- 5758 Feb, [facility] [id number] [place] [address] 30583- 1914 Feb, Cyst of right ovary N83.201 and Right lower quadrant abdominal pain R10.31 [place] [id number] [place] [address] 63768- 7597 Jan, Pelvic pain R10.2 [facility] [id number] [place] [address] 24056- 2619 Jan, [place] [id number] [place] [address] 84375- 8042 Jan, [facility] [id number] [place] [address] 22332- 4705 Jan, Left groin pain R10.30 [facility] [id number] [place] [address] 92933- 7015 Dec, [facility] [address] [place] [address] 15730- 9970 Dec, Pelvic pain R10.2 and Lumbosacral neuritis M54.17 [facility] [id number] [place] [address] 56577- 1330 Dec, [facility] [id number] [place] [address] 50343- 8394 Dec, Lymph node enlargement R59.9 [facility] [id number] [place] [address] 15053- 0397 Nov, Lymph node enlargement R59.9 [facility] [id number] [place] [address] 87749- 7253 Nov, [facility] [id number] [place] [address] 97369- 9913 Nov, Left groin pain R10.30 [facility] [id number] [place] [address] 35839- 8682 Nov, Varicose vein of leg I83.90 ; Essential hypertension I10 and Short lasting unilateral neuralgiform headache with conjunctival injection and tearing (SUNCT), not intractable G44.059 [facility] [address] [place] [address] 84248 -9649 Jul, Post concussion syndrome F07.81 [facility] [id number] [place] [address] 83403- 7898 Jul, [facility] [id number] [place] [address] 66522- 9868 Oct, [facility] [id number] [place] [address] 70894- 9826 Oct, [facility] [id number] [place] [address] 41971- 8958 Aug, [facility] [id number] [place] [address] 03270- 2156 Aug, Obesity 278.00 [facility] [address], [place] [address]- 8236 Aug, [facility] [address] [place] [address] 63980- 8326 Jul, Obesity 278.00 and Cervical spondylosis without myelopathy 721.0 [facility] [id number] [place] [address] 33079- 4766 March, [facility] [address] [place] [address] 33383- 1359 Feb, Cervical spondylosis 721.0 [facility] [id number] [place] [address] 33942- 2444 Feb, [facility] [address], [place] [address]- 0372 Feb, [facility] [address], [place] [address]- 0217 Jan, [facility] [address], [place] [address]- 3439 Jan, [facility] [address], [place] [address]- 3536 Jan, [facility] [address], [place] [address]- 8036 Jan, [facility] [address], [place] [address]- 0386 Jan, [facility] [id number] [address]- 2546 Jan, [facility] [address], [place] [address]- 3666 Dec, [facility] [address], [place] [address]- 2546 Dec, [facility] [id number] [place] [address]- 8081 06 Dec, 2014 [facility] [address] [id number] [place] [address]- 9037 Dec, [facility] [place] [facility] [address] [id number] [place] [address]- 6873 Nov, [facility] [address] [id number] [place] [address]- 1286 Nov, [facility] [place] [facility] [address] [id number] [place] [address]- 0320 16 Nov, 2014 [facility] [address] [id number] [place] [address]- 5021 15 Nov, 2014 [facility] [place] [facility] [address] [id number] [place] [address]- 7068 Nov, [facility] [address] [id number] [place] [address]- 9191 Nov, [facility] [address] [id number] [place] [address]- 2274 Nov, [facility] [place] [facility] [address] [id number] [place] [address]- 8529 Nov, [facility] [address] [id number] [place] [address]- 5925 Oct, [facility] [place] [facility] [address] [id number] [place] [address]- 5908 Oct, [facility] [place] [facility] [address] [id number] [place] [address]- 2597 Sep, [facility] [place] [facility] [address] [id number] [place] [address]- 2589 Sep, [facility] [place] [facility] [address] [id number] [place] [address]- 3724 Sep, [facility] [place] [facility] [address] [id number] [place] [address]- 2592 Sep, [facility] [place] [facility] [address] [id number] [place] [address]- 6383 Jul, 2013 [facility] [place] [facility] [address] [id number] [place] [address]- 7701 Jul, [facility] [place] [facility] [address] [id number] [place] [address]- 1015 Jul, 2013 [facility] [place] [facility] [address] [id number] [place] [address]- 9531 Jul, 2013 [facility] [place] [facility] [address] [id number] [place] [address]- 4101 Jul, 2013 [facility] [place] [facility] [address] [id number] [place] [address]- 8498 Jul, 2013 [facility] [place] [facility] [address] [id number] [place] [address]- 8566 Jul, [facility] [place] [facility] [address] [id number] [place] [address]- 6595 Jul, [facility] [place] [facility] [address] [id number] [place] [address]- 4775 Jul, [facility] [place] [facility] [address] [id number] [place] [address]- 5401 Jul, [facility] [place] [facility] [address] [id number], [place] [address]- 8399 Jun, [facility] [place] [facility] [address] [id number], [place] [address]- 7051 Jun, [facility] [place] [facility] [address] [id number] [place] [address]- 3173 Jun, [facility] [place] [facility] [address] [id number] [place] [address]- 0042 Jun, [facility] [place] [facility] [address] [id number], [place] [address]- 8480 Jun, [facility] [place] [facility] [address] [id number], [place] [address]- 2065 Jun, [facility] [place] [facility] [address] [id number] [place] [address]- 4226 May, [facility] [place] [facility] [address] [id number] [place] [address]- 1309 May, [facility] [place] [facility] [address] [id number] [place] [address]- 7128 May, [facility] [place] [facility] [address] [id number] [place] [address]- 2698 May, [facility] [place] [facility] [address] [id number] [place] [address]- 5345 May, [facility] [place] [facility] [address] [id number] [place] [address]- 4155 May, [facility] [place] [facility] [address] [id number] [place] [address]- 6770 Apr, [facility] [place] [facility] [address] [id number] [place] [address]- 7967 Apr, [facility] [place] [facility] [address] [id number] [place] [address]- 9983 Apr, [facility] [place] [facility] [address] [facility] [id number] [place] [address]- 6993 Apr, [facility] [place] [facility] [address] [id number] [place] [address]- 3389 Apr, [facility] [place] [facility] [address] [id number], [place] [address]- 0195 Apr, [facility] [place] [facility] [address] [id number] [place] [address]- 8393 Apr, [facility] [place] [facility] [address] [id number] [place] [address]- 1701 Apr, [facility] [place] [facility] [address] [id number] [place] [address]- 5866 Apr, [facility] [place] [facility] [address] [id number] [place] [address]- 8117 Apr, [facility] [place] [facility] [address] [id number] [place] [address]- 0274 Apr, [facility] [place] [facility] [address] [id number] [place] [address]- 3082 Apr, [facility] [place] [facility] [address] [id number] [place] [address]- 0575 Apr, [facility] [place] [facility] [address] [id number] [place] [address]- 4716 March, [facility] [place] [facility] [address] [id number] [place] [address]- 0436 March, [facility] [place] [facility] [address] [id number] [place] [address]- 5810 March, [facility] [place] [facility] [address] [id number] [place] [address]- 4645 March, [facility] [place] [facility] [address] [id number] [place] [address]- 6080 March, [facility] [place] [facility] [address] [id number] [place] [address]- 0971 March, [facility] [place] [facility] [address] [id number] [place] [address]- 0455 Feb, [facility] [place] [facility] [address] [id number] [place] [address]- 7698 Feb, [facility] [place] [facility] [address] [id number] [place] [address]- 9748 Feb, [facility] [place] [facility] [address] [id number] [place] [address]- 5472 Feb, [facility] [place] [facility] [address] [id number] [place] [address]- 2844 Feb, [facility] [place] [facility] [address] [id number] [place] [address]- 5091 18 Feb, 2014 [facility] [place] [facility] [address] [id number] [place] [address]- 2881 15 Feb, 2014 [facility] [place] [facility] [address] [id number] [place] [address]- 0091 15 Feb, 2014 [facility] [place] [facility] [address] [id number] [place] [address]- 0247 Feb, [facility] [place] [facility] [address] [id number] [place] [address]- 2351 Feb, [facility] [place] [facility] [address] [id number] [place] [address]- 6929 Jan, [facility] [place] [facility] [address] [id number] [place] [address]- 1047 Jan, [facility] [place] [facility] [address] [id number] [place] [address]- 8039 Jan, [facility] [place] [facility] [address] [id number] [place] [address]- 8837 Jan, [facility] [place] [facility] [address] [id number] [place] [address]- 3369 Dec, [facility] [place] [facility] [address] [id number] [place] [address]- 1754 Dec, [facility] [place] [facility] [address] [id number] [place] [address]- 8215 Sep, [facility] [place] [facility] [address] [id number], [place] [address]- 1692 Sep, [facility] [place] [facility] [address] [id number] [place] [address]- 4854 Aug, [facility] [place] [facility] [address] [id number] [place] [address]- 9096 Aug, [facility] [place] [facility] [address] [id number] [place] [address]- 6581 Aug, [facility] [place] [facility] [address] [facility] [id number] 7574 Aug, [facility] [address] [facility] [id number]- 4060 Aug, [facility] [id number] 5495 May, [facility] [address] [facility] [id number], [place] [address]- 9464 Jan, [facility] [id number] [address]- 3742 Jan, [facility] [address] [facility] [id number], [place] [address]- 5795 Dec, IMMUNIZATIONS No Known Immunizations SOCIAL HISTORY Never Assessed REASON FOR VISIT Returned call PLAN OF CARE VITAL SIGNS MEDICATIONS Unknown [...]
--- OUTSIDE RECORDS SUMMARY | 2018-03-23 12:08 | XMS REPORT ---
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 Name Role Phone FLORENCIA HINOJOSA Unavailable PROBLEMS Type Condition ICD9-CM Code LPK51-ST Code Onset Dates Condition Status SNOMED Code Problem Arthritis M19.90 Active 0089635 Problem Chronic fatigue R53.82 Active 96445899 Problem Intractable migraine without aura and without status migrainosus G43.019 Active 515415617 Problem Memory loss R41.3 Active 61874993 Problem Other chronic pain G89.29 Active 63494691 Problem Mental status change resolved Z86.59 Active 376876002 ALLERGIES Substance Reaction Event Type Date Status Prednisone nausea and vomiting Drug Allergy Apr, Active ENCOUNTERS Encounter Location Date Diagnosis [place] [id number] [place] [address] 29134- 0576 Jan, Intractable migraine without aura and without status migrainosus G43.019 [place] [id number] [place] [address] 21587- 5457 Dec, [place] [id number] [place] [address] 79049- 5069 Dec, Intractable migraine without aura and without status migrainosus G43.019 [place] [id number] [place] [address] 28503- 6090 Nov, [place] [id number] [place] [address] 14268- 0074 Nov, Chronic fatigue R53.82 and Family history of thyroid disease Z83.49 [place] [id number] [place] [address] 45272- 8271 Nov, Arthritis M19.90 ; Chronic fatigue R53.82 ; Family history of thyroid disease Z83.49 ; Grade IV hemorrhoids K64.3 and Other chronic pain G89.29 [facility] [id number] [place] [address] 71843 2546 Nov, Intractable migraine without aura and without status migrainosus G43.019 [facility] [id number] [place] [address] 25801 2546 Oct, [facility] [id number] [place] [address] 62537 2546 Oct, Intractable migraine without aura and without status migrainosus G43.019 [facility] [id number] [place] [address] 95950- 6386 Oct, [facility] [id number] [place] [address] 45171 2546 Oct, [facility] [id number] [place] [address] 48145- 0636 Sep, Tremors of nervous system R25.1 [facility] [id number] [place] [address] 68053 2546 Sep, [facility] [id number] [place] [address] 63221- 2546 Sep, Intractable migraine without aura and without status migrainosus G43.019 [facility] [id number] [place] [address] 97260 2546 Sep, [facility] [id number] [place] [address] 81285 2546 Sep, [facility] [id number] [place] [address] 69869- 2546 Sep, Acute medial meniscus tear of right knee, initial encounter S83.241A and Acute lateral meniscus tear of left knee, initial encounter S83.282A [facility] [id number] [place] [address] 77230- 2546 Aug, Intractable migraine without aura and without status migrainosus G43.019 [facility] [id number] [place] [address] 40104- 9243 Aug, [facility] [id number] [place] [address] 76080- 3573 Aug, [facility] [id number] [place] [address] 31572- 1009 Jul, [facility] [id number] [place] [address] 44721- 5214 Jul, [facility] [id number] [place] [address] 21574- 4623 Jul, Intractable migraine without aura and without status migrainosus G43.019 ; Memory loss R41.3 ; Mental status change resolved Z86.59 ; Other chronic pain G89.29 and Pain in right knee M25.561 [facility] [id number] [place] [address] 87572- 5986 Jul, [facility] [id number] [place] [address] 55245- 8371 Jun, Tremors of nervous system R25.1 and Pelvic pain R10.2 [facility] [id number] [place] [address] 47143- 4959 Jun, [facility] [id number] [place] [address] 77413- 9159 Jun, [facility] [id number] [place] [address] 09868- 7550 Jun, [facility] [id number] [place] [address] 00867- 4725 May, [facility] [id number] [place] [address] 08927- 0786 May, [facility] [id number] [place] [address] 22652- 7543 May, Kidney pain N23 [facility] [id number] [place] [address] 41600- 3855 May, Pelvic pain R10.2 [facility] [id number] [place] [address] 93604 -1340 May, Wasp sting, accidental or unintentional, initial encounter T63.461A and Allergic contact dermatitis due to other agents L23.89 [facility] [id number] [place] [address] 95604- 0012 May, [facility] [id number] [place] [address] 72981- 7826 May, Pelvic pain R10.2 [facility] [id number] [place] [address] 76740- 8257 May, [facility] [id number] [place] [address] 87219- 1641 Apr, Tremors of nervous system R25.1 ; Blood in stool, gabby K92.1 ; 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 ; Memory loss R41.3 and Intractable migraine without aura and without status migrainosus G43.019 [facility] [id number] [place] [address] 37577- 0109 Apr, Blood in stool, gabby K92.1 [facility] [id number] [place] [address] 70466- 4043 Apr, Tremors of nervous system R25.1 ; 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 ; Memory loss R41.3 and Intractable migraine without aura and without status migrainosus G43.019 [facility] [id number] [place] [address] 55159- 4774 Apr, [facility] [id number] [place] [address] 08409- 8845 Apr, Tremor R25.1 [facility] [id number] [place] [address] 52121- 1344 March, [facility] [address] 64272- 2738 March, Cyst of right ovary N83.201 [facility] [id number] [place] [address] 33825- 3602 March, Blood in stool, gabby K92.1 and Other fatigue R53.83 [facility] [id number] [place] [address] 72913- 6177 March, Cyst of right ovary N83.201 [facility] [id number] [place] [address] 53098- 8618 Feb, [facility] [id number] [place] [address] 51383- 8173 Feb, [facility] [id number] [place] [address] 66596- 9512 Feb, Cyst of right ovary N83.201 and Right lower quadrant abdominal pain R10.31 [facility] [id number] [place] [address] 75442- 3549 Jan, Pelvic pain R10.2 [facility] [id number] [place] [address] 09123- 8624 Jan, [facility] [id number] [place] [address] 88960- 3076 Jan, [facility] [id number] [place] [address] 55328- 3604 Jan, Left groin pain R10.30 [facility] [id number] [place] [address] 76124- 9820 Dec, [facility] [id number] [place] [address] 60724- 0340 Dec, Pelvic pain R10.2 and Lumbosacral neuritis M54.17 [facility] [id number] [place] [address] 39591- 6466 Dec, [facility] [address] 72165- 8437 Dec, Lymph node enlargement R59.9 [facility] [id number] [place] [address] 93189- 2203 Nov, Lymph node enlargement R59.9 [facility] [id number] [place] [address] 00737- 4077 Nov, [facility] [id number] [place] [address] 30597- 2185 Nov, Left groin pain R10.30 [facility] [id number] [place] [address] 73976- 4415 Nov, Varicose vein of leg I83.90 ; Essential hypertension I10 and Short lasting unilateral neuralgiform headache with conjunctival injection and tearing (SUNCT), not intractable G44.059 [facility] [id number] [place] [address] 07631 -3614 07 Jul, 2016 Post concussion syndrome F07.81 [facility] [id number] [place] [address] 33003- 4027 Jul, [facility] [id number] [place] [address] 87761- 4996 Oct, [facility] [id number] [place] [address] 77440- 2247 Oct, [facility] [id number] [place] [address] 71452- 7872 Aug, [facility] [id number] [place] [address] 67327- 6068 Aug, Obesity 278.00 [facility] [id number] [place] [address] 90949- 5362 Aug, [facility] [id number] [place] [address] 33503- 7972 Jul, Obesity 278.00 and Cervical spondylosis without myelopathy 721.0 [facility] [id number] [place] [address]- 0755 March, [facility] [address] [facility] [id number] [place] [address]- 7392 30 Feb, 2015 Cervical spondylosis 721.0 [facility] [place] [facility] [address] [id number] [place] [address]- 0989 14 Feb, 2015 [facility] [place] [facility] [address] [facility] [id number] [place] [address]- 2841 Feb, [facility] [place] [facility] [address] [facility] [id number] [place] [address]- 1635 Jan, [facility] [place] [facility] [address] [facility] [id number] [place] [address]- 6228 Jan, [facility] [place] [facility] [address] [facility] [id number] [place] [address]- 7043 Jan, [facility] [place] [facility] [id number] [place] [address]- 0151 Jan, [facility] [place] [facility] [address] [facility] [id number] [place] [address]- 7227 Jan, [facility] [place] [facility] [id number] [place] [address]- 6788 Jan, [facility] [place] [facility] [id number] [place] [address]- 4905 Dec, [facility] [place] [facility] [id number] [place] [address]- 4399 Dec, [facility] [place] [facility] [address] [facility] [id number] [place] [address]- 2460 Dec, [facility] [place] [facility] [address] [facility] [id number] [place] [address]- 3501 Dec, [facility] [place] [facility] [address] [facility] [id number] [place] [address]- 8788 Nov, [facility] [place] [facility] [address] [facility] [id number] [address]- 3353 16 Nov, 2014 [facility] [place] [facility] [address] [id number] [place] [address]- 3172 16 Nov, 2014 [facility] [place] [facility] [address] [id number] [place] [address]- 9161 15 Nov, 2014 [facility] [place] [facility] [address] [id number] [place] [address]- 2561 14 Nov, 2014 [facility] [place] [facility] [address] [id number] [place] [address]- 4687 14 Nov, 2014 [facility] [place] [facility] [address] [id number] [place] [address]- 4707 Nov, [facility] [place] [facility] [address] [id number] [place] [address]- 6125 Nov, [facility] [place] [facility] [address] [id number] [place] [address]- 5537 Oct, [facility] [place] [facility] [address] [id number] [place] [address]- 3064 Oct, [facility] [place] [facility] [address] [id number] [place] [address]- 2447 Sep, [facility] [place] [facility] [address] [id number] [place] [address]- 3621 Sep, [facility] [place] [facility] [address] [id number] [place] [address]- 5807 Sep, [facility] [place] [facility] [address] [id number] [place] [address]- 7538 Sep, [facility] [place] [facility] [address] [id number] [place] [address]- 8228 29 Jul, 2014 [facility] [place] [facility] [address] [id number] [place] [address]- 8004 29 Jul, 2014 [facility] [place] [facility] [address] [id number] [place] [address]- 2391 Jul, [facility] [place] [facility] [address] [id number] [place] [address]- 5883 Jul, 2013 [facility] [place] [facility] [address] [id number] [place] [address]- 7786 Jul, 2013 [facility] [place] [facility] [address] [id number] [place] [address]- 2976 Jul, 2013 [facility] [place] [facility] [address] [id number] [place] [address]- 4746 Jul, 2013 [facility] [place] [facility] [address] [id number] [place] [address]- 5268 Jul, 2013 [facility] [place] [facility] [address] [id number] [place] [address]- 6537 Jul, [facility] [place] [facility] [address] [id number] [place] [address]- 6718 Jul, [facility] [place] [facility] [address] [id number] [place] [address]- 2534 Jun, [facility] [place] [facility] [address] [id number] [place] [address]- 2139 Jun, [facility] [place] [facility] [address] [id number] [place] [address]- 9023 Jun, [facility] [place] [facility] [address] [id number] [place] [address]- 7685 Jun, [facility] [place] [facility] [address] [id number] [place] [address]- 0789 Jun, [facility] [place] [facility] [address] [id number] [place] [address]- 4201 Jun, [facility] [place] [facility] [address] [id number] [place] [address]- 7420 May, [facility] [place] [facility] [address] [id number] [place] [address]- 5869 May, [facility] [place] [facility] [address] [id number] [place] [address]- 3661 May, [facility] [place] [facility] [address] [id number] [place] [address]- 6471 May, [facility] [place] [facility] [address] [id number] [place] [address]- 5797 May, [facility] [place] [facility] [address] [id number] [place] [address]- 8769 May, [facility] [place] [facility] [address] [id number] [place] [address]- 1494 24 Apr, 2014 [facility] [place] [facility] [address] [id number] [place] [address]- 7133 Apr, [facility] [place] [facility] [address] [id number] [place] [address]- 1731 Apr, [facility] [place] [facility] [address] [id number] [place] [address]- 4804 Apr, [facility] [place] [facility] [address] [id number] [place] [address]- 1523 Apr, [facility] [place] [facility] [address] [id number] [place] [address]- 4631 Apr, [facility] [place] [facility] [address] [id number] [place] [address]- 0110 Apr, [facility] [place] [facility] [address] [id number] [place] [address]- 5335 Apr, [facility] [place] [facility] [address] [id number] [place] [address]- 5498 05 Apr, 2014 [facility] [place] [facility] [address] [id number] [place] [address]- 8201 Apr, [facility] [place] [facility] [address] [id number] [place] [address]- 6867 Apr, [facility] [place] [facility] [address] [id number] [place] [address]- 7085 Apr, [facility] [place] [facility] [address] [id number] [place] [address]- 7542 Apr, [facility] [place] [facility] [address] [id number] [place] [address]- 8864 March, [facility] [place] [facility] [address] [id number] [place] [address]- 4987 March, [facility] [place] [facility] [address] [id number] [place] [address]- 5351 March, [facility] [place] [facility] [address] [id number] [place] [address]- 4670 March, [facility] [place] [facility] [address] [id number] [place] [address]- 5716 March, [facility] [place] [facility] [address] [id number] [place] [address]- 6812 March, [facility] [place] [facility] [address] [id number] [place] [address]- 2645 Feb, [facility] [place] [facility] [address] [id number] [place] [address]- 2001 Feb, [facility] [place] [facility] [address] [id number] [place] [address]- 1327 Feb, [facility] [place] [facility] [address] [id number] [place] [address]- 9363 Feb, [facility] [place] [facility] [address] [id number] [place] [address]- 4922 Feb, [facility] [place] [facility] [address] [id number] [place] [address]- 9913 Feb, [facility] [place] [facility] [address] [id number] [place] [address]- 6252 15 Feb, 2014 [facility] [place] [facility] [address] [id number] [place] [address]- 7567 Feb, [facility] [place] [facility] [address] [id number] [place] [address]- 1014 Feb, [facility] [place] [facility] [address] [id number] [place] [address]- 6673 Feb, [facility] [place] [facility] [address] [id number] [place] 7809 Jan, [facility] [place] [facility] [address] [id number] [place] [address]- 4398 Jan, [facility] [place] [facility] [address] [id number] [place] [address]- 8735 Jan, [facility] [place] [facility] [address] [id number] [place] [address]- 9217 Jan, [facility] [place] [facility] [address] [id number] [place] 2112 Dec, [facility] [place] [facility] [address] [id number] [place] [address]- 1699 Dec, [facility] [place] [facility] [address] [id number] [place] [address]- 9886 Sep, [facility] [place] [facility] [address] [id number] [place] [address]- 7303 Sep, [facility] [place] [facility] [address] [id number] [place] [address]- 3005 Aug, [facility] [place] [facility] [address] [id number] [place] [address]- 3913 Aug, [facility] [place] [facility] [address] [id number] [place] [address]- 8618 Aug, [facility] [place] [facility] [address] [id number] [place] [address]- 9757 Aug, [facility] [place] [facility] [address] [id number] [place] [address]- 6668 Aug, [facility] [place] [facility] [address] [id number] [place] [address]- 8176 May, [facility] [place] [facility] [address] [id number] [place] [address]- 9752 Jan, [facility] [address] [facility] [id number] [place] [address]- 4366 Jan, [facility] [address] [facility] [id number] [address]- 9766 Dec, IMMUNIZATIONS No Known Immunizations SOCIAL HISTORY Never Assessed REASON FOR VISIT Tremor f/u, Wanting to discuss recent neurosurgery appointment and their recommendations, Marie PLAN OF CARE Activity Details Follow Up 4 Weeks Reason:tremors and migraines VITAL SIGNS Height 66 in 2017-05-21 Weight 159.8 lbs 2017-05-21 Temperature 98.1 degrees Fahrenheit 2017-05-21 Heart Rate 72 bpm 2017-05-21 Respiratory Rate 18 2017-05-21 BMI 25.79 kg/m2 2017-05-21 Blood pressure systolic 98 mmHg 2017-05-21 Blood pressure diastolic 70 mmHg 2017-05-21 MEDICATIONS Medication Instructions Dosage Frequency Start Date End Date Duration Status Oxycodone HCl 10 MG Orally 3 times a day 1 tablet as needed 8h 12 Apr, 2017 28 days Active Depakote 500 MG Orally 2 times a day 1 tablet 12h 02 Apr, 2017 Active RESULTS No Results PROCEDURES No Known procedures INSTRUCTIONS MEDICATIONS ADMINISTERED No Known Medications MEDICAL (GENERAL) HISTORY Type Description Date Medical History Asthma Medical History Hives since 2000 Surgical History spinal fusion 2014 Surgical History Tonsillectomy Surgical History Appendectomy Surgical History section Surgical History epidural anesthesia/injection Surgical History Hemorrhoidecomy with umu Surgical History colonoscopy
--- OUTSIDE RECORDS SUMMARY | 2018-03-23 12:09 | XMS REPORT ---
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
--- OUTSIDE RECORDS SUMMARY | 2018-03-23 12:09 | XMS REPORT ---
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 Name Role Phone FLORENCIA HINOJOSA Unavailable PROBLEMS Type Condition ICD9-CM Code [id number] Code Onset Dates Condition Status SNOMED Code Problem Arthritis M19.90 Active 4917358 Problem Chronic fatigue R53.82 Active 33949421 Problem Intractable migraine without aura and without status migrainosus G43.019 Active 708921968 Problem Memory loss R41.3 Active 64183548 Problem Other chronic pain G89.29 Active 16727372 Problem Mental status change resolved Z86.59 Active [id number] ALLERGIES No Information ENCOUNTERS Encounter Location Date Diagnosis [place] [id number] [place] [address] 10738- 7678 March, [place] [id number] [place] [address] 28530- 4601 Feb, Intractable migraine without aura and without status migrainosus G43.019 [place] [id number] [place] [address] 06619- 8707 Feb, Memory loss R41.3 and 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 [facility] [id number] [place] [address] 25575- 6221 Feb, Intractable migraine without aura and without status migrainosus G43.019 [facility] [id number] [place] [address] 76743- 1674 Jan, Intractable migraine without aura and without status migrainosus G43.019 [facility] [id number] [place] [address] 60003- 5662 Dec, [facility] [address] 0[address]99- 1090 Dec, Intractable migraine without aura and without status migrainosus G43.019 [facility] [id number] [place] [address] 86528- 7735 Nov, [facility] [id number] [place] [address] 4407 Nov, Chronic fatigue R53.82 and Family history of thyroid disease Z83.49 [place] [id number] [place] [address] 31690- 3140 Nov, Arthritis M19.90 ; Chronic fatigue R53.82 ; Family history of thyroid disease Z83.49 ; Grade IV hemorrhoids K64.3 and Other chronic pain G89.29 [place] [id number] [place] [address] 94563- 1422 Nov, Intractable migraine without aura and without status migrainosus G43.019 [place] [id number] [place] [address] 29297- 1592 Oct, [place] [id number] [place] [address] 41220- 2634 Oct, Intractable migraine without aura and without status migrainosus G43.019 [facility] [id number] [place] [address] 20143- 8136 Oct, [place] [id number] [place] [address] 88731- 2570 Oct, [facility] [id number] [place] [address] 80414- 5927 Sep, Tremors of nervous system R25.1 [place] [id number] [place] [address] 92789- 3437 Sep, [place] [id number] [place] [address] 99636- 6224 Sep, Intractable migraine without aura and without status migrainosus G43.019 [place] [id number] [place] [address] 23610- 1586 Sep, [facility] [id number] [place] [address] 27613- 3656 Sep, [facility] [id number] [place] [address] 45543- 5736 Sep, Acute medial meniscus tear of right knee, initial encounter S83.241A and Acute lateral meniscus tear of left knee, initial encounter S83.282A [facility] [id number] [place] [address] 23030- 5642 Aug, Intractable migraine without aura and without status migrainosus G43.019 [facility] [id number] [place] [address] 42710- 4056 Aug, [facility] [id number] [place] [address] 53531- 3956 Aug, [facility] [id number] [place] [address] 41980- 8215 Jul, [facility] [id number] [place] [address] 87028- 0399 Jul, [facility] [id number] [place] [address] 84408- 8153 Jul, Intractable migraine without aura and without status migrainosus G43.019 ; Memory loss R41.3 ; Mental status change resolved Z86.59 ; Other chronic pain G89.29 and Pain in right knee M25.561 [facility] [id number] [place] [address] 25298- 8687 Jul, [facility] [id number] [place] [address] 01643- 5102 Jun, Tremors of nervous system R25.1 and Pelvic pain R10.2 [facility] [id number] [place] [address] 87380- 0829 Jun, [facility] [id number] [place] [address] 64066- 7484 Jun, [facility] [id number] [place] [address] 27017- 9156 Jun, [facility] [id number] [place] [address] 41438- 7226 May, [facility] [id number] [place] [address] 28552- 9210 May, [facility] [id number] [place] [address] 16423- 0446 May, Kidney pain N23 [facility] [id number] [place] [address] 83231- 6584 May, Pelvic pain R10.2 [facility] [id number] [place] [address] 96440 -6877 May, Wasp sting, accidental or unintentional, initial encounter T63.461A and Allergic contact dermatitis due to other agents L23.89 [facility] [id number] [place] [address] 36791- 3343 May, [facility] [id number] [place] [address] 57537- 0034 May, Pelvic pain R10.2 [facility] [id number] [place] [address] 04596- 1366 May, [facility] [id number] [place] [address] 49353- 5517 Apr, Tremors of nervous system R25.1 ; Blood in stool, gabby K92.1 ; 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 ; Memory loss R41.3 and Intractable migraine without aura and without status migrainosus G43.019 [facility] [id number] [place] [address] 45860- 5785 Apr, Blood in stool, gabby K92.1 [facility] [id number] [place] [address] 87915- 5112 29 Rico, 2017 Tremors of nervous system R25.1 ; 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 ; Memory loss R41.3 and Intractable migraine without aura and without status migrainosus G43.019 [facility] [id number] [place] [address] 91978- 9958 Apr, [facility] [id number] [place] [address] 25611- 7756 Apr, Tremor R25.1 [facility] [id number] [place] [address] 81774- 9058 March, [facility] [id number] [place] [address] 13930- 8296 March, Cyst of right ovary N83.201 [facility] [id number] [place] [address] 64314- 3104 March, Blood in stool, gabby K92.1 and Other fatigue R53.83 [place] [id number] [place] [address] 20794- 0262 March, Cyst of right ovary N83.201 [facility] [id number] [place] [address] 56177- 9803 Feb, [facility] [id number] [place] [address] 22366- 7061 Feb, [facility] [id number] [place] [address] 32647- 7257 Feb, Cyst of right ovary N83.201 and Right lower quadrant abdominal pain R10.31 [facility] [id number] [place] [address] 87971- 6860 Jan, Pelvic pain R10.2 [facility] [id number] [place] [address] 75361- 4198 Jan, [facility] [id number] [place] [address] 47306- 6035 Jan, [facility] [id number] [place] [address] 42883- 0267 Jan, Left groin pain R10.30 [facility] [id number] [place] [address] 98184- 0293 Dec, [facility] [id number] [place] [address] 55540- 4542 Dec, Pelvic pain R10.2 and Lumbosacral neuritis M54.17 [facility] [id number] [place] [address] 93092- 8286 Dec, [facility] [id number] [place] [address] 76751- 5418 Dec, Lymph node enlargement R59.9 [facility] [id number] [place] [address] 09153- 1107 Nov, Lymph node enlargement R59.9 [facility] [id number] [place] [address] 05052- 8317 Nov, [facility] [id number] [place] [address] 60847- 5146 Nov, Left groin pain R10.30 [facility] [id number] [place] [address] 67270- 8420 Nov, Varicose vein of leg I83.90 ; Essential hypertension I10 and Short lasting unilateral neuralgiform headache with conjunctival injection and tearing (SUNCT), not intractable G44.059 [facility] [address] [place] [address] 06266 -6392 Jul, Post concussion syndrome F07.81 [facility] [id number] [place] [address] 66236- 6320 Jul, [facility] [id number] [place] [address] 28997- 7509 Oct, [facility] [id number] [place] [address] 32394- 2190 Oct, [place] [address] [facility] [id number] [address]- 0594 Aug, [facility] [address] [address]- 2678 Aug, Obesity 278.00 [facility] [address] [address]- 6096 Aug, [facility] [id number] [place] [address] 38552- 7503 Jul, Obesity 278.00 and Cervical spondylosis without myelopathy 721.0 [facility] [address] [place] [address] 45711- 7426 March, [facility] [address] [address]- 6125 Feb, Cervical spondylosis 721.0 [facility] [id number] [place] [address] 87449- 5627 Feb, [facility] [address] [address]- 3037 Feb, [facility] [address] [address]- 3756 Jan, [facility] [address] [address]- 8133 Jan, [facility] [address], [place] [address]- 4086 Jan, [facility] [address], [place] [address]- 2546 Jan, [facility] [address], [place] [address]- 2546 Jan, [facility] [address] [address]- 2546 Jan, [facility] [address] [address]- 9777 Dec, [facility] [place] [facility] [address] [id number] [place] [address]- 7220 Dec, [facility] [place] [facility] [address] [id number] [place] [address]- 1566 Dec, [facility] [place] [facility] [address] [id number] [place] [address]- 0187 Dec, [facility] [place] [facility] [address] [id number] [place] [address]- 3978 Nov, [facility] [place] [facility] [address] [id number] [place] [address]- 2800 Nov, [facility] [place] [facility] [address] [id number] [place] [address]- 9646 Nov, [facility] [place] [facility] [address] [id number] [place] [address]- 0478 Nov, [facility] [place] [facility] [address] [id number] [place] [address]- 2428 Nov, [facility] [place] [facility] [address] [id number] [place] [address]- 3617 Nov, [facility] [place] [facility] [address] [id number] [place] [address]- 2417 Nov, [facility] [place] [facility] [address] [id number], [place] [address]- 6599 Nov, [facility] [place] [facility] [address] [id number], [place] [address]- 0212 Oct, [facility] [place] [facility] [address] [id number] [place] [address]- 8421 Oct, [facility] [place] [facility] [address] [id number], [place] [address]- 1271 Sep, [facility] [place] [facility] [address] [id number] [place] [address]- 0397 Sep, [facility] [place] [facility] [address] [id number] [place] [address]- 3454 10 Sep, 2014 [facility] [place] [facility] [address] [id number] [place] [address]- 5552 10 Sep, 2014 [facility] [place] [facility] [address] [id number] [place] [address]- 1186 29 Jul, 2013 [facility] [place] [facility] [address] [id number] [place] [address] 2546 29 Jul, 2013 [facility] [place] [facility] [address] [id number] [place] [address] 2544 Jul, 2013 [facility] [place] [facility] [address] [id number] [place] [address]- 9852 Jul, 2013 [facility] [place] [facility] [address] [id number] [place] [address]- 2647 Jul, 2013 [facility] [place] [facility] [address] [id number] [place] [address]- 7677 Jul, 2013 [facility] [place] [facility] [address] [id number] [place] [address]- 2545 Jul, 2013 [facility] [place] [facility] [address] [id number] [place] [address]- 2098 Jul, 2013 [facility] [place] [facility] [address] [id number] [place] [address]- 5329 Jul, [facility] [place] [facility] [address] [id number] [place] [address]- 5704 Jul, 2013 [facility] [place] [facility] [address] [id number] [place] [address]- 2540 Jun, [facility] [place] [facility] [address] [id number] [place] [address]- 0026 Jun, [facility] [place] [facility] [address] [id number] [place] [address]- 9610 Jun, [facility] [place] [facility] [address] [id number] [place] [address]- 0077 Jun, [facility] [place] [facility] [address] [id number] [place] [address]- 3674 Jun, [facility] [place] [facility] [address] [id number] [place] [address]- 6722 Jun, [facility] [place] [facility] [address] [id number] [place] [address]- 5171 May, [facility] [place] [facility] [address] [id number] [place] [address]- 9892 May, [facility] [place] [facility] [address] [id number] [place] [address]- 4059 May, [facility] [place] [facility] [address] [id number] [place] [address]- 5564 May, [facility] [place] [facility] [address] [id number] [place] [address]- 7358 May, [facility] [place] [facility] [address] [id number] [place] [address]- 2208 May, [facility] [place] [facility] [address] [id number] [place] [address]- 2798 Apr, [facility] [place] [facility] [address] [id number] [place] [address]- 6711 Apr, [facility] [place] [facility] [address] [id number] [place] [address]- 9268 Apr, [facility] [place] [facility] [address] [id number] [place] [address]- 5858 Apr, [facility] [place] [facility] [address] [id number] [place] [address]- 8118 Apr, [facility] [place] [facility] [address] [id number] [place] [address]- 8901 Apr, [facility] [place] [facility] [address] [id number] [place] [address]- 2423 Apr, [facility] [place] [facility] [address] [id number] [place] [address]- 6107 Apr, [facility] [place] [facility] [address] [id number] [place] [address]- 8033 Apr, [facility] [place] [facility] [address] [id number] [place] [address]- 8205 Apr, [facility] [place] [facility] [address] [id number] [place] [address]- 8517 Apr, [facility] [place] [facility] [address] [id number] [place] [address]- 2012 Apr, [facility] [place] [facility] [address] [id number] [place] [address]- 6120 Apr, [facility] [place] [facility] [address] [id number] [place] [address]- 8400 March, [facility] [place] [facility] [address] [id number] [place] [address]- 6646 March, [facility] [place] [facility] [address] [id number] [place] [address]- 4298 March, [facility] [place] [facility] [address] [id number] [place] [address]- 5086 March, [facility] [place] [facility] [address] [id number] [place] [address]- 0766 March, [facility] [place] [facility] [address] [id number] [place] [address]- 4770 March, [facility] [place] [facility] [address] [id number] [place] [address]- 5054 Feb, [facility] [place] [facility] [address] [id number] [place] [address]- 9438 Feb, [facility] [place] [facility] [address] [id number] [place] [address]- 0272 Feb, [facility] [place] [facility] [address] [id number] [place] [address]- 1585 Feb, [facility] [place] [facility] [address] [id number] [place] [address]- 8903 18 Feb, 2014 [facility] [address] [id number] [place] [address]- 2900 18 Feb, 2014 [facility] [place] [facility] [address] [id number] [place] [address]- 6071 15 Feb, 2014 [facility] [address] [id number] [place] [address]- 2261 15 Feb, 2014 [facility] [place] [facility] [address] [id number] [place] [address]- 2987 Feb, [facility] [address] [id number] [place] [address]- 7788 Feb, [facility] [place] [facility] [address] [id number] [place] [address]- 5294 Jan, [facility] [place] [facility] [address] [id number] [place] [address]- 4460 Jan, [facility] [address] [id number] [place] [address]- 3880 Jan, [facility] [place] [facility] [address] [id number] [place] [address]- 8683 Jan, [facility] [address] [id number] [place] [address]- 3862 Dec, [facility] [place] [facility] [address] [id number] [place] [address]- 6696 Dec, [facility] [place] [facility] [address] [id number] [place] [address]- 3635 Sep, [facility] [place] [facility] [address] [id number] [place] 0460 Sep, [facility] [place] [facility] [address] [id number] [place] [address]- 5583 Aug, [facility] [place] [facility] [address] [id number] [place] [address]- 8918 Aug, [facility] [address] [facility] [id number], [place] [address]- 7945 Aug, [facility] [address] [place] [address]- 1966 Aug, [facility] [id number] 0097 Aug, [facility] [address], [place] [address]- 6952 May, [facility] [id number] [address]- 7777 Jan, [facility] [id number], [place] [address]- 2002 Jan, [facility] [id number] [address]- 0719 Dec, IMMUNIZATIONS No Known Immunizations SOCIAL HISTORY Never Assessed REASON FOR VISIT Phone Call PLAN OF CARE VITAL SIGNS MEDICATIONS Unknown [...]
--- OUTSIDE RECORDS SUMMARY | 2018-03-23 12:09 | XMS REPORT ---
Author Author FLORENCIA HINOJOSA [facility] Address [address] [place] [address] Care Team Providers Care Supervisor Carding Name Role Phone FLORENCIA HINOJOSA Unavailable PROBLEMS Type Condition ICD9-CM Code NPT79-PG Code Onset Dates Condition Status SNOMED Code Problem Memory loss R41.3 Active 57668167 Problem Intractable migraine without aura and without status migrainosus G43.019 Active 843150348 ALLERGIES Unknown Allergies SOCIAL HISTORY No smoking Hx information available PLAN OF CARE VITAL SIGNS MEDICATIONS Medication Instructions Dosage Frequency Start Date End Date Duration Status Augmentin 875-125 MG Orally every 12 hrs 1 tablet 12h 24 Nov, 2016 3 Dec, 2016 10 day(s) Active RESULTS No Results PROCEDURES No Known procedures IMMUNIZATIONS No Known Immunizations
--- OUTSIDE RECORDS SUMMARY | 2018-03-23 12:09 | XMS REPORT ---
Author Author FLORENCIA HINOJOSA Organization [facility] Address [address] [place] [address] Care Team Providers Care Mold Presser Name Role Phone FLORENCIA HINOJOSA Unavailable PROBLEMS Type Condition ICD9-CM Code [id number] Code Onset Dates Condition Status SNOMED Code Problem Arthritis M19.90 Active 3877640 Problem Chronic fatigue R53.82 Active 31478676 Problem Intractable migraine without aura and without status migrainosus G43.019 Active 577080158 Problem Memory loss R41.3 Active 16806700 Problem Other chronic pain G89.29 Active 73298456 Problem Mental status change resolved Z86.59 Active [id number] ALLERGIES No Information ENCOUNTERS Encounter Location Date Diagnosis [place] [id number] [place] [address] 36611- 8482 March, [place] [id number] [place] [address] 17204- 2163 Feb, Memory loss R41.3 and 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 [place] [id number] [place] [address] 44045- 7068 Feb, Intractable migraine without aura and without status migrainosus G43.019 [place] [id number] [place] [address] 18860- 7984 Jan, Intractable migraine without aura and without status migrainosus G43.019 [place] [id number] [place] [address] 18979- 8800 Dec, [place] [id number] [place] [address] 38906- 0248 Dec, Intractable migraine without aura and without status migrainosus G43.019 [place] [id number] [place] [address] 90269- 6355 Nov, [facility] [address] [address] 8016 Nov, Chronic fatigue R53.82 and Family history of thyroid disease Z83.49 [facility] [id number] [place] [address] 26643- 6547 17 Nov, 2017 Arthritis M19.90 ; Chronic fatigue R53.82 ; Family history of thyroid disease Z83.49 ; Grade IV hemorrhoids K64.3 and Other chronic pain G89.29 [facility] [address] [place] [address] 46486- 8303 Nov, Intractable migraine without aura and without status migrainosus G43.019 [facility] [id number] [place] [address] 53377- 6941 Oct, [facility] [id number] [place] [address] 22058- 6205 Oct, Intractable migraine without aura and without status migrainosus G43.019 [facility] [address] [place] [address] 55864- 4057 Oct, [facility] [id number] [place] [address] 20290- 2331 Oct, [facility] [id number] [place] [address] 90398- 0885 Sep, Tremors of nervous system R25.1 [facility] [id number] [place] [address] 87167- 2026 Sep, [facility] [address] [place] [address] 77919- 2940 Sep, Intractable migraine without aura and without status migrainosus G43.019 [facility] [id number] [place] [address] 02641- 2546 Sep, [facility] [id number] [place] [address] 40017- 4276 Sep, [facility] [address] [address]- 3632 Sep, Acute medial meniscus tear of right knee, initial encounter S83.241A and Acute lateral meniscus tear of left knee, initial encounter S83.282A [facility] [id number] [place] [address] 93501- 3866 Aug, Intractable migraine without aura and without status migrainosus G43.019 [facility] [id number] [place] [address] 72812- 9766 Aug, [facility] [id number] [place] [address] 41398- 4646 Aug, [facility] [id number] [place] [address] 57953- 2076 Jul, [facility] [id number] [place] [address] 24653- 0279 Jul, [facility] [id number] [place] [address] 57049- 8429 Jul, Intractable migraine without aura and without status migrainosus G43.019 ; Memory loss R41.3 ; Mental status change resolved Z86.59 ; Other chronic pain G89.29 and Pain in right knee M25.561 [facility] [id number] [place] [address] 12015- 7590 Jul, [facility] [id number] [place] [address] 38242- 3810 Jun, Tremors of nervous system R25.1 and Pelvic pain R10.2 [facility] [id number] [place] [address] 28282- 5030 Jun, [facility] [id number] [place] [address] 21323- 1283 Jun, [facility] [id number] [place] [address] 49983- 3962 Jun, [facility] [address] [address]- 4896 May, [facility] [id number] [place] [address] 30948- 8762 May, [facility] [address] [address]- 4755 May, Kidney pain N23 [facility] [id number] [place] [address] 59291- 7479 May, Pelvic pain R10.2 [facility] [address] [place] [address] 27840 -7619 May, Wasp sting, accidental or unintentional, initial encounter T63.461A and Allergic contact dermatitis due to other agents L23.89 [facility] [address] [address]- 2878 May, [facility] [address] [place] [address] 76071- 6418 May, Pelvic pain R10.2 [facility] [address] [address]- 2712 May, [facility] [address] [address]- 7309 Apr, Tremors of nervous system R25.1 ; Blood in stool, gabby K92.1 ; 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 ; Memory loss R41.3 and Intractable migraine without aura and without status migrainosus G43.019 [facility] [address] [address] 2546 Apr, Blood in stool, gabby K92.1 [facility] [address] [address] 2546 Apr, Tremors of nervous system R25.1 ; 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 ; Memory loss R41.3 and Intractable migraine without aura and without status migrainosus G43.019 [facility] [id number] [address]- 8290 Apr, [facility] [id number] [place] [address] 51091- 1163 Apr, Tremor R25.1 [facility] [id number] [place] [address] 39943- 3347 March, [facility] [id number] [place] [address] 82857- 4035 March, Cyst of right ovary N83.201 [facility] [id number] [place] [address] 31580- 2216 March, Blood in stool, gabby K92.1 and Other fatigue R53.83 [facility] [id number] [place] [address] 39478- 7191 March, Cyst of right ovary N83.201 [facility] [id number] [place] [address] 42752- 5299 Feb, [facility] [id number] [place] [address] 55302- 8938 Feb, [facility] [id number] [place] [address] 59393- 7463 Feb, Cyst of right ovary N83.201 and Right lower quadrant abdominal pain R10.31 [place] [id number] [place] [address] 37229- 2742 Jan, Pelvic pain R10.2 [facility] [id number] [place] [address] 54592- 9646 Jan, [place] [id number] [place] [address] 02374- 0796 Jan, [facility] [id number] [place] [address] 91049- 6136 Jan, Left groin pain R10.30 [facility] [id number] [place] [address] 31657- 6632 Dec, [facility] [address] [place] [address] 64089- 4481 Dec, Pelvic pain R10.2 and Lumbosacral neuritis M54.17 [facility] [id number] [place] [address] 35028- 9849 Dec, [facility] [id number] [place] [address] 98006- 2459 Dec, Lymph node enlargement R59.9 [facility] [id number] [place] [address] 00066- 9789 Nov, Lymph node enlargement R59.9 [facility] [id number] [place] [address] 74658- 2421 Nov, [facility] [id number] [place] [address] 80899- 1497 Nov, Left groin pain R10.30 [facility] [id number] [place] [address] 57097- 4684 Nov, Varicose vein of leg I83.90 ; Essential hypertension I10 and Short lasting unilateral neuralgiform headache with conjunctival injection and tearing (SUNCT), not intractable G44.059 [facility] [address] [place] [address] 93210 -6350 Jul, Post concussion syndrome F07.81 [facility] [id number] [place] [address] 06901- 8610 Jul, [facility] [id number] [place] [address] 43797- 3631 Oct, [facility] [id number] [place] [address] 16910- 3901 Oct, [facility] [id number] [place] [address] 39132- 1795 Aug, [facility] [id number] [place] [address] 12401- 3936 Aug, Obesity 278.00 [facility] [address] [address]- 7096 Aug, [facility] [address] [place] [address] 32515- 4676 Jul, Obesity 278.00 and Cervical spondylosis without myelopathy 721.0 [facility] [id number] [place] [address] 05221- 6796 March, [facility] [address] [place] [address] 74889- 3711 Feb, Cervical spondylosis 721.0 [facility] [id number] [place] [address] 88724- 9778 Feb, [facility] [address] [address]- 6211 Feb, [facility] [address] [address]- 7617 Jan, [facility] [address] [address]- 0066 Jan, [facility] [address] [address]- 4306 Jan, [facility] [address] [address]- 3916 Jan, [facility] [address] [address]- 1146 Jan, [facility] [id number] [address]- 2546 Jan, [facility] [address] [address]- 6056 Dec, [facility] [address] [address]- 2546 Dec, [facility] [id number] [place] [address]- 5804 06 Dec, 2014 [facility] [address] [id number] [place] [address]- 9100 Dec, [facility] [place] [facility] [address] [id number] [place] [address]- 6618 Nov, [facility] [address] [id number] [place] [address]- 5423 Nov, [facility] [place] [facility] [address] [id number] [place] [address]- 3548 16 Nov, 2014 [facility] [address] [id number] [place] [address]- 8716 15 Nov, 2014 [facility] [place] [facility] [address] [id number] [place] [address]- 5628 Nov, [facility] [address] [id number] [place] [address]- 2143 Nov, [facility] [address] [id number] [place] [address]- 7293 Nov, [facility] [place] [facility] [address] [id number] [place] [address]- 3093 Nov, [facility] [address] [id number] [place] [address]- 7461 Oct, [facility] [place] [facility] [address] [id number] [place] [address]- 8305 Oct, [facility] [place] [facility] [address] [id number] [place] [address]- 8921 Sep, [facility] [place] [facility] [address] [id number] [place] [address]- 9464 Sep, [facility] [place] [facility] [address] [id number] [place] [address]- 0974 Sep, [facility] [place] [facility] [address] [id number] [place] [address]- 1584 Sep, [facility] [place] [facility] [address] [id number] [place] [address]- 8475 Jul, 2013 [facility] [place] [facility] [address] [id number] [place] [address]- 5983 Jul, [facility] [place] [facility] [address] [id number] [place] [address]- 2027 Jul, 2013 [facility] [place] [facility] [address] [id number] [place] [address]- 8926 Jul, 2013 [facility] [place] [facility] [address] [id number] [place] [address]- 5103 Jul, 2013 [facility] [place] [facility] [address] [id number] [place] [address]- 8636 Jul, 2013 [facility] [place] [facility] [address] [id number] [place] [address]- 8396 Jul, [facility] [place] [facility] [address] [id number] [place] [address]- 2113 Jul, [facility] [place] [facility] [address] [id number] [place] [address]- 8112 Jul, [facility] [place] [facility] [address] [id number] [place] [address]- 1381 Jul, [facility] [place] [facility] [address] [id number] [address]- 0532 Jun, [facility] [place] [facility] [address] [id number] [place] [address]- 8991 Jun, [facility] [place] [facility] [address] [id number] [place] [address]- 0780 Jun, [facility] [place] [facility] [address] [id number] [place] [address]- 9913 Jun, [facility] [place] [facility] [address] [id number] [address]- 8894 Jun, [facility] [place] [facility] [address] [id number] [address]- 1438 Jun, [facility] [place] [facility] [address] [id number] [place] [address]- 7284 May, [facility] [place] [facility] [address] [id number] [place] [address]- 3495 May, [facility] [place] [facility] [address] [id number] [place] [address]- 8713 May, [facility] [place] [facility] [address] [id number] [place] [address]- 8622 May, [facility] [place] [facility] [address] [id number] [place] [address]- 0415 May, [facility] [place] [facility] [address] [id number] [place] [address]- 5435 May, [facility] [place] [facility] [address] [id number] [place] [address]- 7237 Apr, [facility] [place] [facility] [address] [id number] [place] [address]- 2024 Apr, [facility] [place] [facility] [address] [id number] [place] [address]- 3062 Apr, [facility] [place] [facility] [address] [facility] [id number] [place] [address]- 1776 Apr, [facility] [place] [facility] [address] [id number] [place] [address]- 0416 Apr, [facility] [place] [facility] [address] [id number] [address]- 9412 Apr, [facility] [place] [facility] [address] [id number] [place] [address]- 9059 Apr, [facility] [place] [facility] [address] [id number] [place] [address]- 6340 Apr, [facility] [place] [facility] [address] [id number] [place] [address]- 1111 Apr, [facility] [place] [facility] [address] [id number] [place] [address]- 3761 Apr, [facility] [place] [facility] [address] [id number] [place] [address]- 5809 Apr, [facility] [place] [facility] [address] [id number] [place] [address]- 2596 Apr, [facility] [place] [facility] [address] [id number] [place] [address]- 2482 Apr, [facility] [place] [facility] [address] [id number] [place] [address]- 2093 March, [facility] [place] [facility] [address] [id number] [place] [address]- 2204 March, [facility] [place] [facility] [address] [id number] [place] [address]- 6287 March, [facility] [place] [facility] [address] [id number] [place] [address]- 5726 March, [facility] [place] [facility] [address] [id number] [place] [address]- 9806 March, [facility] [place] [facility] [address] [id number] [place] [address]- 3273 March, [facility] [place] [facility] [address] [id number] [place] [address]- 8468 Feb, [facility] [place] [facility] [address] [id number] [place] [address]- 6104 Feb, [facility] [place] [facility] [address] [id number] [place] [address]- 8376 Feb, [facility] [place] [facility] [address] [id number] [place] [address]- 3080 Feb, [facility] [place] [facility] [address] [id number] [place] [address]- 7837 Feb, [facility] [place] [facility] [address] [id number] [place] [address]- 2347 18 Feb, 2014 [facility] [place] [facility] [address] [id number] [place] [address]- 0854 15 Feb, 2014 [facility] [place] [facility] [address] [id number] [place] [address]- 2685 15 Feb, 2014 [facility] [place] [facility] [address] [id number] [place] [address]- 8608 Feb, [facility] [place] [facility] [address] [id number] [place] [address]- 2210 Feb, [facility] [place] [facility] [address] [id number] [place] [address]- 3723 Jan, [facility] [place] [facility] [address] [id number] [place] [address]- 3560 Jan, [facility] [place] [facility] [address] [id number] [place] [address]- 6578 Jan, [facility] [place] [facility] [address] [id number] [place] [address]- 3465 Jan, [facility] [place] [facility] [address] [id number] [place] [address]- 6008 Dec, [facility] [place] [facility] [address] [id number] [place] [address]- 3813 Dec, [facility] [place] [facility] [address] [id number] [place] [address]- 7271 Sep, [facility] [place] [facility] [address] [id number] [address]- 6170 Sep, [facility] [place] [facility] [address] [id number] [place] [address]- 2291 Aug, [facility] [place] [facility] [address] [id number] [place] [address]- 3716 Aug, [facility] [place] [facility] [address] [id number] [place] [address]- 9404 Aug, [facility] [place] [facility] [address] [facility] [id number] [address]- 2546 Aug, [facility] [address] [facility] [id number] [address]- 0376 Aug, [facility] [address] [facility] [id number] [place] [address]- 2546 May, [facility] [address] [facility] [id number] [address]- 2546 Jan, [facility] [address] [facility] [id number] [address] Jan, [facility] [address] [facility] [id number] [address] Dec, IMMUNIZATIONS No Known Immunizations SOCIAL HISTORY Never Assessed REASON FOR VISIT Controlled Med Refill 06/22/17 PLAN OF CARE VITAL SIGNS MEDICATIONS Medication Instructions Dosage Frequency Start Date End Date Duration Status Oxycodone HCl 10 MG Orally 4 times a day 1 tablet as needed May, 28 days Active RESULTS No Results PROCEDURES No Known procedures INSTRUCTIONS MEDICATIONS ADMINISTERED No Known Medications MEDICAL (GENERAL) HISTORY Type Description Date Medical History Asthma Medical History Hives since 2000 Surgical History spinal fusion 2014 Surgical History Tonsillectomy Surgical History Appendectomy Surgical History section Surgical History epidural anesthesia/injection Surgical History Hemorrhoidecomy with umu Surgical History colonoscopy
--- OUTSIDE RECORDS SUMMARY | 2018-03-23 12:09 | XMS REPORT ---
Author Author FLORENCIA HINOJOSA Organization [facility] Address [address] [place] [address] Care Team Providers Care Stitch Wheeler Name Role Phone FLORENCIA HINOJOSA Unavailable PROBLEMS Type Condition ICD9-CM Code [id number] Code Onset Dates Condition Status SNOMED Code Problem Other chronic pain G89.29 Active 53050810 Problem Mental status change resolved Z86.59 Active 754040717 Problem Memory loss R41.3 Active 43066521 Problem Intractable migraine without aura and without status migrainosus G43.019 Active [id number] ALLERGIES No Information SOCIAL HISTORY Never Assessed PLAN OF CARE VITAL SIGNS MEDICATIONS Medication Instructions Dosage Frequency Start Date End Date Duration Status Oxycodone HCl 10 mg Orally 3 times a day 1 tablet as needed 8h March, Active RESULTS No Results PROCEDURES No Known procedures IMMUNIZATIONS No Known Immunizations MEDICAL (GENERAL) HISTORY Type Description Date Medical History Asthma Medical History Hives since 2000 Surgical History spinal fusion 2014 Surgical History Tonsillectomy Surgical History Appendectomy Surgical History section Surgical History epidural anesthesia/injection Surgical History Hemorrhoidecomy with umu Surgical History colonoscopy
--- OUTSIDE RECORDS SUMMARY | 2018-03-23 12:10 | XMS REPORT ---
Author Author FLORENCIA HINOJOSA [facility] Address [address] [place] [address] Care Team Providers Care Cableway Operator Name Role Phone FLORENCIA HINOJOSA Unavailable PROBLEMS Type Condition ICD9-CM Code [id number] Code Onset Dates Condition Status SNOMED Code Problem Other chronic pain G89.29 Active 14923811 Problem Mental status change resolved Z86.59 Active 959918984 Problem Memory loss R41.3 Active 20392640 Problem Intractable migraine without aura and without status migrainosus G43.019 Active 853718820 ALLERGIES No Information SOCIAL HISTORY Never Assessed [...]
--- OUTSIDE RECORDS SUMMARY | 2018-03-23 12:10 | XMS REPORT ---
Author Author FLORENCIA HINOJOSA Organization [facility] Address [address] [place] [address] Care Team Providers Care Electronics Engineering Manager Name Role Phone FLORENCIA HINOJOSA Unavailable PROBLEMS Type Condition ICD9-CM Code SFV04-ST Code Onset Dates Condition Status SNOMED Code Problem Arthritis M19.90 Active 1462356 Problem Chronic fatigue R53.82 Active 41839299 Problem Intractable migraine without aura and without status migrainosus G43.019 Active 767650045 Problem Memory loss R41.3 Active 91367369 Problem Other chronic pain G89.29 Active 07981664 Problem Mental status change resolved Z86.59 Active [id number] ALLERGIES No Information ENCOUNTERS Encounter Location Date Diagnosis [place] [id number] [place] [address] 30849- 7161 Jan, Intractable migraine without aura and without status migrainosus G43.019 [place] [address] 47948- 8232 Dec, [place] [id number] [place] [address] 00906- 7920 Dec, Intractable migraine without aura and without status migrainosus G43.019 [place] [id number] [place] [address] 18380- 1443 Nov, [place] [id number] [place] [address] 48258- 1132 Nov, Chronic fatigue R53.82 and Family history of thyroid disease Z83.49 [place] [address] 13859- 5639 Nov, Arthritis M19.90 ; Chronic fatigue R53.82 ; Family history of thyroid disease Z83.49 ; Grade IV hemorrhoids K64.3 and Other chronic pain G89.29 [facility] [address] [facility] [id number] [address] 2546 Nov, Intractable migraine without aura and without status migrainosus G43.019 [facility] [address] [facility] [id number] [place] [address] 2546 Oct, [facility] [address] [facility] [id number] [place] [address] 38583 2546 Oct, Intractable migraine without aura and without status migrainosus G43.019 [facility] [address] [facility] [id number] [place] [address] 2546 Oct, [facility] [id number] [place] [address] 35350 2546 Oct, [facility] [id number] [place] [address] 10667 2546 Sep, Tremors of nervous system R25.1 [facility] [id number] [place] [address] 51593 2546 Sep, [facility] [id number] [place] [address] 59445 2546 Sep, Intractable migraine without aura and without status migrainosus G43.019 [facility] [address] [id number] [address] 2546 Sep, [facility] [id number] [place] [address] 39248 2546 Sep, [facility] [address] [facility] [id number] [place] [address] 2546 Sep, Acute medial meniscus tear of right knee, initial encounter S83.241A and Acute lateral meniscus tear of left knee, initial encounter S83.282A [facility] [address] [id number] [address] 2546 Aug, Intractable migraine without aura and without status migrainosus G43.019 [facility] [address] [id number] [address] 1293 Aug, [facility] [id number] [place] [address] 17107- 1029 Aug, [facility] [id number] [place] [address] 40563- 4166 Jul, [facility] [id number] [place] [address] 42407- 7037 Jul, [facility] [id number] [place] [address] 78946- 0411 Jul, Intractable migraine without aura and without status migrainosus G43.019 ; Memory loss R41.3 ; Mental status change resolved Z86.59 ; Other chronic pain G89.29 and Pain in right knee M25.561 [facility] [id number] [place] [address] 28013- 5178 Jul, [facility] [id number] [place] [address] 90367- 7800 Jun, Tremors of nervous system R25.1 and Pelvic pain R10.2 [facility] [id number] [place] [address] 38702- 4238 Jun, [facility] [id number] [place] [address] 93417- 9170 Jun, [facility] [id number] [place] [address] 06245- 1223 Jun, [facility] [id number] [place] [address] 35961- 6044 May, [facility] [id number] [place] [address] 32954- 0114 May, [facility] [id number] [place] [address] 09237- 0543 May, Kidney pain N23 [facility] [id number] [place] [address] 98270- 5022 May, Pelvic pain R10.2 [facility] [id number] [place] [address] 30342 -2264 May, Wasp sting, accidental or unintentional, initial encounter T63.461A and Allergic contact dermatitis due to other agents L23.89 [facility] [id number] [place] [address] 79105- 6977 May, [facility] [id number] [place] [address] 74393- 0168 May, Pelvic pain R10.2 [facility] [id number] [place] [address] 27917- 9031 May, [facility] [id number] [place] [address] 45183- 9917 Apr, Tremors of nervous system R25.1 ; Blood in stool, gabby K92.1 ; 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 ; Memory loss R41.3 and Intractable migraine without aura and without status migrainosus G43.019 [facility] [id number] [place] [address] 16709- 7217 Apr, Blood in stool, gabby K92.1 [facility] [id number] [place] [address] 81910- 7279 Apr, Tremors of nervous system R25.1 ; 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 ; Memory loss R41.3 and Intractable migraine without aura and without status migrainosus G43.019 [facility] [address] [address]- 7572 Apr, [facility] [id number] [place] [address] 13387- 4547 Apr, Tremor R25.1 [facility] [id number] [place] [address] 47987- 8483 March, [facility] [id number] [place] [address] 68788- 6978 March, Cyst of right ovary N83.201 [facility] [id number] [place] [address] 10813- 7450 March, Blood in stool, gabby K92.1 and Other fatigue R53.83 [facility] [id number] [place] [address] 61353 2546 March, Cyst of right ovary N83.201 [facility] [id number] [place] [address] 23261 2544 Feb, [facility] [id number] [place] [address] 97607- 4946 Feb, [facility] [address] 79745- 2960 Feb, Cyst of right ovary N83.201 and Right lower quadrant abdominal pain R10.31 [place] [id number] [place] [address] 08794- 6374 Jan, Pelvic pain R10.2 [facility] [id number] [place] [address] 07475- 3000 Jan, [facility] [address] 61324- 6661 Jan, [facility] [id number] [place] [address] 35962- 3879 Jan, Left groin pain R10.30 [facility] [id number] [place] [address] 13328- 7570 Dec, [facility] [id number] [place] [address] 70141- 5375 Dec, Pelvic pain R10.2 and Lumbosacral neuritis M54.17 [facility] [id number] [place] [address] 74948- 0986 Dec, [facility] [id number] [place] [address] 61242- 6673 Dec, Lymph node enlargement R59.9 [facility] [id number] [place] [address] 16426- 5480 Nov, Lymph node enlargement R59.9 [facility] [id number] [place] [address] 84749- 6632 Nov, [facility] [id number] [place] [address] 12277- 0198 Nov, Left groin pain R10.30 [facility] [id number] [place] [address] 81176- 0163 Nov, Varicose vein of leg I83.90 ; Essential hypertension I10 and Short lasting unilateral neuralgiform headache with conjunctival injection and tearing (SUNCT), not intractable G44.059 [facility] [id number] [place] [address] 92904 -7904 07 Jul, 2016 Post concussion syndrome F07.81 [facility] [address] 72975- 5510 Jul, [facility] [id number] [place] [address] 38696- 8833 Oct, [facility] [id number] [place] [address] 47597- 4113 Oct, [facility] [id number] [place] [address] 21920- 3262 Aug, [facility] [id number] [place] [address] 50503- 6922 Aug, Obesity 278.00 [facility] [id number] [place] [address] 35515- 2335 Aug, [facility] [address] 14967- 4036 Jul, Obesity 278.00 and Cervical spondylosis without myelopathy 721.0 [facility] [id number] [place] [address] 58456- 0785 March, [facility] [address] [facility] [id number] [place] [address]- 7664 Feb, Cervical spondylosis 721.0 [facility] [place] [facility] [address] [facility] [id number] [place] [address]- 6761 14 Feb, 2015 [facility] [place] [facility] [address] [facility] [id number] [place] [address]- 8227 Feb, [facility] [place] [facility] [address] [facility] [id number] [address]- 7582 Jan, [facility] [place] [facility] [address] [facility] [id number] [place] [address]- 5236 Jan, [facility] [place] [facility] [address] [facility] [id number] [place] [address]- 5687 Jan, [facility] [place] [facility] [address] [id number] [place] [address]- 3883 Jan, [facility] [place] [facility] [address] [facility] [id number] [place] [address]- 4462 Jan, [facility] [place] [facility] [id number] [place] [address]- 4829 Jan, [facility] [place] [facility] [address] [facility] [id number] [place] [address]- 9568 Dec, [facility] [place] [facility] [address] [id number] [address]- 7736 Dec, [facility] [place] [facility] [address] [facility] [id number] [place] [address]- 6980 Dec, [facility] [place] [facility] [address] [facility] [id number] [place] [address]- 9597 Dec, [facility] [place] [facility] [address] [facility] [id number] [place] [address]- 5445 Nov, [facility] [place] [facility] [id number] [place] [address]- 0187 Nov, [facility] [place] [facility] [address] [id number] [place] [address]- 4960 16 Nov, 2014 [facility] [place] [facility] [address] [id number] [place] [address]- 6345 15 Nov, 2014 [facility] [place] [facility] [address] [id number] [place] [address]- 9362 14 Nov, 2014 [facility] [place] [facility] [address] [id number] [place] [address]- 2658 14 Nov, 2014 [facility] [place] [facility] [address] [id number] [place] [address]- 6693 Nov, [facility] [place] [facility] [address] [id number] [place] [address]- 3360 Nov, [facility] [place] [facility] [address] [id number] [place] [address]- 0529 Oct, [facility] [place] [facility] [address] [id number] [place] [address]- 9866 Oct, [facility] [place] [facility] [address] [id number] [place] [address]- 7759 Sep, [facility] [place] [facility] [address] [id number] [place] [address]- 0345 Sep, [facility] [place] [facility] [address] [id number] [place] [address]- 1736 Sep, [facility] [place] [facility] [address] [id number] [place] [address]- 9888 Sep, [facility] [place] [facility] [address] [id number] [place] [address]- 5613 29 Jul, 2014 [facility] [place] [facility] [address] [id number] [place] [address]- 6951 29 Jul, 2014 [facility] [place] [facility] [address] [id number] [place] [address]- 5767 Jul, [facility] [place] [facility] [address] [id number] [place] [address]- 1252 Jul, [facility] [place] [facility] [address] [id number] [place] [address]- 4866 Jul, [facility] [place] [facility] [address] [id number] [place] [address]- 4413 Jul, [facility] [place] [facility] [address] [id number] [place] [address]- 4475 Jul, [facility] [place] [facility] [address] [id number] [place] [address]- 2589 Jul, [facility] [place] [facility] [address] [id number] [place] [address]- 7132 Jul, [facility] [place] [facility] [address] [id number] [place] [address]- 5987 Jul, [facility] [place] [facility] [address] [id number] [place] [address]- 8510 Jun, [facility] [place] [facility] [address] [id number] [place] [address]- 7759 Jun, [facility] [place] [facility] [address] [id number] [place] [address]- 7515 Jun, [facility] [place] [facility] [address] [id number] [place] [address]- 9756 Jun, [facility] [place] [facility] [address] [id number] [place] [address]- 0132 Jun, [facility] [place] [facility] [address] [id number] [place] [address]- 6244 Jun, [facility] [place] [facility] [address] [id number] [place] [address]- 8636 May, [facility] [place] [facility] [address] [id number] [place] [address]- 4416 May, [facility] [place] [facility] [address] [id number] [place] [address]- 4301 May, [facility] [place] [facility] [address] [id number] [place] [address]- 7034 11 May, 2014 [facility] [place] [facility] [address] [id number] [place] [address]- 5563 07 May, 2014 [facility] [place] [facility] [address] [id number] [place] [address]- 2560 07 May, 2014 [facility] [place] [facility] [address] [id number] [place] [address]- 4836 24 Apr, 2014 [facility] [place] [facility] [address] [id number] [place] [address]- 0365 Apr, [facility] [place] [facility] [address] [id number] [place] [address]- 3961 Apr, [facility] [place] [facility] [address] [id number] [place] [address]- 5202 Apr, [facility] [place] [facility] [address] [id number] [place] [address]- 9072 Apr, [facility] [place] [facility] [address] [id number] [place] [address]- 8218 Apr, [facility] [place] [facility] [address] [id number] [place] [address]- 6818 Apr, [facility] [place] [facility] [address] [id number] [place] [address]- 9154 Apr, [facility] [place] [facility] [address] [id number] [place] [address]- 3566 Apr, [facility] [place] [facility] [address] [id number] [place] [address]- 3298 Apr, [facility] [place] [facility] [address] [id number] [place] [address]- 8864 Apr, [facility] [place] [facility] [address] [id number] [place] [address]- 5431 Apr, [facility] [place] [facility] [address] [id number] [place] [address]- 1144 Apr, [facility] [place] [facility] [address] [id number] [place] [address]- 8223 March, [facility] [place] [facility] [address] [id number] [place] [address]- 9183 March, [facility] [place] [facility] [address] [id number] [place] [address]- 3003 March, [facility] [place] [facility] [address] [id number] [place] [address]- 8879 March, [facility] [place] [facility] [address] [id number] [place] [address]- 5612 March, [facility] [place] [facility] [address] [id number] [place] [address]- 5293 March, [facility] [place] [facility] [address] [id number] [place] [address]- 4376 Feb, [facility] [place] [facility] [address] [id number] [place] [address]- 7392 Feb, [facility] [place] [facility] [address] [id number] [place] [address]- 2431 Feb, [facility] [place] [facility] [address] [id number] [place] [address]- 6208 Feb, [facility] [place] [facility] [address] [id number] [place] [address]- 4917 Feb, [facility] [place] [facility] [address] [id number] [place] [address]- 4219 Feb, [facility] [place] [facility] [address] [id number] [place] [address]- 7952 Feb, [facility] [place] [facility] [address] [id number] [place] [address]- 9030 15 Feb, 2014 [facility] [place] [facility] [address] [id number] [place] [address]- 2287 Feb, [facility] [place] [facility] [address] [id number] [place] [address]- 2196 Feb, [facility] [place] [facility] [address] [id number] [place] [address]- 7465 Jan, [facility] [place] [facility] [address] [id number] [place] 5306 Jan, [facility] [place] [facility] [address] [id number] [place] [address]- 0290 Jan, [facility] [place] [facility] [address] [id number] [place] [address]- 0760 Jan, [facility] [place] [facility] [address] [id number] [place] [address]- 6690 Dec, [facility] [place] [facility] [address] [id number] [place] [address]- 7389 Dec, [facility] [place] [facility] [address] [id number] [place] [address]- 2925 Sep, [facility] [place] [facility] [address] [id number] [place] [address]- 9549 Sep, [facility] [place] [facility] [address] [id number] [place] [address]- 9321 Aug, [facility] [place] [facility] [address] [id number] [place] [address]- 4914 Aug, [facility] [place] [facility] [address] [id number] [address]- 6749 Aug, [facility] [place] [facility] [address] [id number] [place] [address]- 8058 Aug, [facility] [place] [facility] [address] [id number] [place] [address]- 2834 Aug, [facility] [place] [facility] [address] [id number] [place] 7796 May, [facility] [place] [facility] [address] [id number] [place] [address]- 5191 Jan, [facility] [place] [facility] [address] [facility] [id number] [place] [address]- 5676 Jan, [facility] [address] [facility] [id number] [place] [address]- 8994 Dec, IMMUNIZATIONS No Known Immunizations SOCIAL HISTORY Never Assessed REASON FOR VISIT Labs PLAN OF CARE VITAL SIGNS MEDICATIONS Unknown [...]
--- OUTSIDE RECORDS SUMMARY | 2018-03-23 12:10 | XMS REPORT ---
Author Author FLORENCIA HINOJOSA Organization [facility] Address [address] [place] [address] Care Team Providers Care Television Actor Name Role Phone FLORENCIA HINOJOSA Unavailable PROBLEMS Type Condition ICD9-CM Code [id number] Code Onset Dates Condition Status SNOMED Code Problem Arthritis M19.90 Active 6094348 Problem Chronic fatigue R53.82 Active 12899157 Problem Intractable migraine without aura and without status migrainosus G43.019 Active 941746120 Problem Memory loss R41.3 Active 89618631 Problem Other chronic pain G89.29 Active 86193438 Problem Mental status change resolved Z86.59 Active 725335272 ALLERGIES No Information ENCOUNTERS Encounter Location Date Diagnosis [place] [id number] [place] [address] 14314- 8927 March, [place] [id number] [place] [address] 26315- 1259 Feb, Memory loss R41.3 and 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 [place] [id number] [place] [address] 98617- 3341 Feb, Intractable migraine without aura and without status migrainosus G43.019 [place] [id number] [place] [address] 13617- 0205 Jan, Intractable migraine without aura and without status migrainosus G43.019 [place] [id number] [place] [address] 23713- 8244 Dec, [place] [id number] [place] [address] 14186- 3027 Dec, Intractable migraine without aura and without status migrainosus G43.019 [place] [id number] [place] [address] 26585- 7255 Nov, [facility] [address], [place] [address] 3149 Nov, Chronic fatigue R53.82 and Family history of thyroid disease Z83.49 [facility] [id number] [place] [address] 37399- 6030 17 Nov, 2017 Arthritis M19.90 ; Chronic fatigue R53.82 ; Family history of thyroid disease Z83.49 ; Grade IV hemorrhoids K64.3 and Other chronic pain G89.29 [facility] [id number] [place] [address] 61298- 9278 Nov, Intractable migraine without aura and without status migrainosus G43.019 [facility] [id number] [place] [address] 52530- 5692 Oct, [facility] [id number] [place] [address] 15982- 5704 Oct, Intractable migraine without aura and without status migrainosus G43.019 [facility] [id number] [place] [address] 48681- 5672 Oct, [facility] [id number] [place] [address] 14229- 8949 Oct, [facility] [id number] [place] [address] 07256- 1191 Sep, Tremors of nervous system R25.1 [facility] [id number] [place] [address] 47635- 1916 Sep, [facility] [id number] [place] [address] 28849- 0024 Sep, Intractable migraine without aura and without status migrainosus G43.019 [facility] [id number] [place] [address] 90362- 2546 Sep, [facility] [id number] [place] [address] 38926- 3606 Sep, [facility] [address], [place] [address]- 8503 Sep, Acute medial meniscus tear of right knee, initial encounter S83.241A and Acute lateral meniscus tear of left knee, initial encounter S83.282A [facility] [id number] [place] [address] 81122- 3756 Aug, Intractable migraine without aura and without status migrainosus G43.019 [facility] [id number] [place] [address] 67198- 9616 Aug, [facility] [id number] [place] [address] 79359- 4906 Aug, [facility] [id number] [place] [address] 75219- 7956 Jul, [facility] [id number] [place] [address] 62693- 2955 Jul, [facility] [id number] [place] [address] 31950- 4244 Jul, Intractable migraine without aura and without status migrainosus G43.019 ; Memory loss R41.3 ; Mental status change resolved Z86.59 ; Other chronic pain G89.29 and Pain in right knee M25.561 [facility] [id number] [place] [address] 68009- 8148 Jul, [facility] [id number] [place] [address] 04481- 2902 Jun, Tremors of nervous system R25.1 and Pelvic pain R10.2 [facility] [id number] [place] [address] 75423- 0721 Jun, [facility] [id number] [place] [address] 63161- 6162 Jun, [facility] [id number] [place] [address] 12657- 1252 Jun, [facility] [address], [place] [address]- 7671 May, [facility] [id number] [place] [address] 51370- 4859 May, [facility] [address], [place] [address]- 6812 May, Kidney pain N23 [facility] [id number] [place] [address] 50150- 2584 May, Pelvic pain R10.2 [facility] [address] [place] [address] 46616 -8362 May, Wasp sting, accidental or unintentional, initial encounter T63.461A and Allergic contact dermatitis due to other agents L23.89 [facility] [address], [place] [address]- 2139 May, [facility] [id number] [place] [address] 09849- 8396 May, Pelvic pain R10.2 [facility] [address], [place] [address]- 9948 May, [facility] [address], [place] [address]- 9808 Apr, Tremors of nervous system R25.1 ; Blood in stool, gabby K92.1 ; 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 ; Memory loss R41.3 and Intractable migraine without aura and without status migrainosus G43.019 [facility] [address], [place] [address] 2546 Apr, Blood in stool, gabby K92.1 [facility] [address], [place] [address] 2546 Apr, Tremors of nervous system R25.1 ; 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 ; Memory loss R41.3 and Intractable migraine without aura and without status migrainosus G43.019 [facility] [id number], [place] [address]- 3484 Apr, [facility] [id number] [place] [address] 97485- 4019 Apr, Tremor R25.1 [facility] [id number] [place] [address] 27957- 1943 March, [facility] [id number] [place] [address] 84228- 4553 March, Cyst of right ovary N83.201 [facility] [id number] [place] [address] 29413- 5201 March, Blood in stool, gabby K92.1 and Other fatigue R53.83 [facility] [id number] [place] [address] 16811- 9838 March, Cyst of right ovary N83.201 [facility] [id number] [place] [address] 46784- 5924 Feb, [facility] [id number] [place] [address] 50332- 2925 Feb, [facility] [id number] [place] [address] 73883- 7717 Feb, Cyst of right ovary N83.201 and Right lower quadrant abdominal pain R10.31 [place] [id number] [place] [address] 28708- 7799 Jan, Pelvic pain R10.2 [facility] [id number] [place] [address] 83633- 1517 Jan, [place] [id number] [place] [address] 77476- 7595 Jan, [facility] [id number] [place] [address] 37361- 9453 Jan, Left groin pain R10.30 [facility] [id number] [place] [address] 74918- 6697 Dec, [facility] [address] [place] [address] 60710- 5103 Dec, Pelvic pain R10.2 and Lumbosacral neuritis M54.17 [facility] [id number] [place] [address] 72218- 1879 Dec, [facility] [id number] [place] [address] 59758- 5249 Dec, Lymph node enlargement R59.9 [facility] [id number] [place] [address] 03386- 0961 Nov, Lymph node enlargement R59.9 [facility] [id number] [place] [address] 43613- 3808 Nov, [facility] [id number] [place] [address] 77678- 1293 Nov, Left groin pain R10.30 [facility] [id number] [place] [address] 05264- 0492 Nov, Varicose vein of leg I83.90 ; Essential hypertension I10 and Short lasting unilateral neuralgiform headache with conjunctival injection and tearing (SUNCT), not intractable G44.059 [facility] [address] [place] [address] 96487 -9114 Jul, Post concussion syndrome F07.81 [facility] [id number] [place] [address] 66133- 4119 Jul, [facility] [id number] [place] [address] 21008- 5395 Oct, [facility] [id number] [place] [address] 59693- 4346 Oct, [facility] [id number] [place] [address] 59128- 9008 Aug, [facility] [id number] [place] [address] 76490- 9586 Aug, Obesity 278.00 [facility] [address], [place] [address]- 0486 Aug, [facility] [address] [place] [address] 49626- 4056 Jul, Obesity 278.00 and Cervical spondylosis without myelopathy 721.0 [facility] [id number] [place] [address] 21540- 5916 March, [facility] [address] [place] [address] 10055- 1481 Feb, Cervical spondylosis 721.0 [facility] [id number] [place] [address] 12614- 6403 Feb, [facility] [address], [place] [address]- 3987 Feb, [facility] [address], [place] [address]- 3230 Jan, [facility] [address], [place] [address]- 8708 Jan, [facility] [address], [place] [address]- 8316 Jan, [facility] [address], [place] [address]- 2966 Jan, [facility] [address], [place] [address]- 6016 Jan, [facility] [id number], [place] [address]- 2546 Jan, [facility] [address], [place] [address]- 6446 Dec, [facility] [address], [place] [address]- 2546 Dec, [facility] [id number] [place] [address]- 8681 06 Dec, 2014 [facility] [address] [id number] [place] [address]- 7806 Dec, [facility] [place] [facility] [address] [id number] [place] [address]- 7747 Nov, [facility] [address] [id number] [place] [address]- 9155 Nov, [facility] [place] [facility] [address] [id number] [place] [address]- 6830 16 Nov, 2014 [facility] [address] [id number] [place] [address]- 7104 15 Nov, 2014 [facility] [place] [facility] [address] [id number] [place] [address]- 7675 Nov, [facility] [address] [id number] [place] [address]- 4069 Nov, [facility] [address] [id number] [place] [address]- 1883 Nov, [facility] [place] [facility] [address] [id number] [place] [address]- 2109 Nov, [facility] [address] [id number] [place] [address]- 3772 Oct, [facility] [place] [facility] [address] [id number] [place] [address]- 7401 Oct, [facility] [place] [facility] [address] [id number] [place] [address]- 3454 Sep, [facility] [place] [facility] [address] [id number] [place] [address]- 4641 Sep, [facility] [place] [facility] [address] [id number] [place] [address]- 3906 Sep, [facility] [place] [facility] [address] [id number] [place] [address]- 5559 Sep, [facility] [place] [facility] [address] [id number] [place] [address]- 7780 Jul, 2013 [facility] [place] [facility] [address] [id number] [place] [address]- 9903 Jul, [facility] [place] [facility] [address] [id number] [place] [address]- 7787 Jul, 2013 [facility] [place] [facility] [address] [id number] [place] [address]- 5522 Jul, 2013 [facility] [place] [facility] [address] [id number] [place] [address]- 9368 Jul, 2013 [facility] [place] [facility] [address] [id number] [place] [address]- 8797 Jul, 2013 [facility] [place] [facility] [address] [id number] [place] [address]- 5665 Jul, [facility] [place] [facility] [address] [id number] [place] [address]- 3974 Jul, [facility] [place] [facility] [address] [id number] [place] [address]- 1912 Jul, [facility] [place] [facility] [address] [id number] [place] [address]- 1309 Jul, [facility] [place] [facility] [address] [id number], [place] [address]- 4711 Jun, [facility] [place] [facility] [address] [id number], [place] [address]- 6962 Jun, [facility] [place] [facility] [address] [id number] [place] [address]- 8950 Jun, [facility] [place] [facility] [address] [id number] [place] [address]- 9137 Jun, [facility] [place] [facility] [address] [id number], [place] [address]- 6546 Jun, [facility] [place] [facility] [address] [id number], [place] [address]- 2767 Jun, [facility] [place] [facility] [address] [id number] [place] [address]- 2449 May, [facility] [place] [facility] [address] [id number] [place] [address]- 1564 May, [facility] [place] [facility] [address] [id number] [place] [address]- 8256 May, [facility] [place] [facility] [address] [id number] [place] [address]- 9804 May, [facility] [place] [facility] [address] [id number] [place] [address]- 3366 May, [facility] [place] [facility] [address] [id number] [place] [address]- 1820 May, [facility] [place] [facility] [address] [id number] [place] [address]- 8543 Apr, [facility] [place] [facility] [address] [id number] [place] [address]- 2760 Apr, [facility] [place] [facility] [address] [id number] [place] [address]- 9761 Apr, [facility] [place] [facility] [address] [facility] [id number] [place] [address]- 5541 Apr, [facility] [place] [facility] [address] [id number] [place] [address]- 9598 Apr, [facility] [place] [facility] [address] [id number], [place] [address]- 5305 Apr, [facility] [place] [facility] [address] [id number] [place] [address]- 6376 Apr, [facility] [place] [facility] [address] [id number] [place] [address]- 1704 Apr, [facility] [place] [facility] [address] [id number] [place] [address]- 2615 Apr, [facility] [place] [facility] [address] [id number] [place] [address]- 5691 Apr, [facility] [place] [facility] [address] [id number] [place] [address]- 8288 Apr, [facility] [place] [facility] [address] [id number] [place] [address]- 1700 Apr, [facility] [place] [facility] [address] [id number] [place] [address]- 8128 Apr, [facility] [place] [facility] [address] [id number] [place] [address]- 3201 March, [facility] [place] [facility] [address] [id number] [place] [address]- 8896 March, [facility] [place] [facility] [address] [id number] [place] [address]- 3807 March, [facility] [place] [facility] [address] [id number] [place] [address]- 9357 March, [facility] [place] [facility] [address] [id number] [place] [address]- 3675 March, [facility] [place] [facility] [address] [id number] [place] [address]- 8654 March, [facility] [place] [facility] [address] [id number] [place] [address]- 7567 Feb, [facility] [place] [facility] [address] [id number] [place] [address]- 2717 Feb, [facility] [place] [facility] [address] [id number] [place] [address]- 0288 Feb, [facility] [place] [facility] [address] [id number] [place] [address]- 5094 Feb, [facility] [place] [facility] [address] [id number] [place] [address]- 5090 Feb, [facility] [place] [facility] [address] [id number] [place] [address]- 3767 18 Feb, 2014 [facility] [place] [facility] [address] [id number] [place] [address]- 8820 15 Feb, 2014 [facility] [place] [facility] [address] [id number] [place] [address]- 4258 15 Feb, 2014 [facility] [place] [facility] [address] [id number] [place] [address]- 0379 Feb, [facility] [place] [facility] [address] [id number] [place] [address]- 0253 Feb, [facility] [place] [facility] [address] [id number] [place] [address]- 2400 Jan, [facility] [place] [facility] [address] [id number] [place] [address]- 0337 Jan, [facility] [place] [facility] [address] [id number] [place] [address]- 5114 Jan, [facility] [place] [facility] [address] [id number] [place] [address]- 9333 Jan, [facility] [place] [facility] [address] [id number] [place] [address]- 1694 Dec, [facility] [place] [facility] [address] [id number] [place] [address]- 4184 Dec, [facility] [place] [facility] [address] [id number] [place] [address]- 4896 Sep, [facility] [place] [facility] [address] [id number], [place] [address]- 9725 Sep, [facility] [place] [facility] [address] [id number] [place] [address]- 5535 Aug, [facility] [place] [facility] [address] [id number] [place] [address]- 4436 Aug, [facility] [place] [facility] [address] [id number] [place] [address]- 7596 Aug, [facility] [place] [facility] [address] [facility] [id number], [place] [address]- 2546 Aug, [facility] [address] [facility] [id number], [place] [address] 2546 Aug, [facility] [address] [facility] [id number], [place] [address]- 2546 May, [facility] [address] [facility] [id number], [place] [address]- 2546 Jan, [facility] [address] [facility] [id number], [place] [address]- 2546 Jan, [facility] [address] [facility] [id number], [place] [address]- 3556 Dec, IMMUNIZATIONS No Known Immunizations SOCIAL HISTORY Never Assessed REASON FOR VISIT Controlled Med Refill PLAN OF CARE VITAL SIGNS MEDICATIONS Medication Instructions Dosage Frequency Start Date End Date Duration Status Oxycodone HCl 10 MG Orally 4 times a day 1 tablet as needed 6h Jun, 28 days Active Depakote 500 MG Orally 2 times a day 1 tablet 12h Apr, 30 days Active RESULTS No Results PROCEDURES No Known procedures INSTRUCTIONS MEDICATIONS ADMINISTERED No Known Medications MEDICAL (GENERAL) HISTORY Type Description Date Medical History Asthma Medical History Hives since 2000 Surgical History spinal fusion 2014 Surgical History Tonsillectomy Surgical History Appendectomy Surgical History section Surgical History epidural anesthesia/injection Surgical History Hemorrhoidecomy with umu Surgical History colonoscopy
--- OUTSIDE RECORDS SUMMARY | 2018-03-23 12:11 | XMS REPORT ---
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 Fluorescent Lighting Model Maker Name Role Phone FLORENCIA HINOJOSA Unavailable PROBLEMS Type Condition ICD9-CM Code [id number] Code Onset Dates Condition Status SNOMED Code Problem Memory loss R41.3 Active 35128783 Problem Intractable migraine without aura and without status migrainosus G43.019 Active 350048456 ALLERGIES Unknown Allergies SOCIAL HISTORY No smoking Hx information available PLAN OF CARE VITAL SIGNS MEDICATIONS Unknown Medications RESULTS Name Result Date Reference Range CBC 2016-12-24 WBC 6.8 3.4-10.8 RBC 4.00 3.77-5.28 Hemoglobin 12.4 11.1-15.9 Hematocrit 36.3 34.0-46.6 MCV 91 79-97 MCH 31.0 26.6-33.0 MCHC 34.2 31.5-35.7 RDW 12.3 12.3-15.4 Platelets 209 150-379 Neutrophils 67 Lymphs 25 Monocytes 6 Eos 2 Basos 0 Immature Cells Neutrophils (Absolute) 4.5 1.4-7.0 Lymphs (Absolute) 1.7 0.7-3.1 Monocytes(Absolute) 0.4 0.1-0.9 Eos (Absolute) 0.1 0.0-0.4 Baso (Absolute) 0.0 0.0-0.2 Immature Granulocytes 0 Immature Grans (Abs) 0.0 0.0-0.1 NRBC Hematology Comments: PROCEDURES Procedure Date Ordered Related Diagnosis Body Site LAB NOT BILLED BY [facility] Dec 24, 2016 VENMARNIE CHIU* Dec 24, 2016 IMMUNIZATIONS No Known Immunizations
--- OUTSIDE RECORDS SUMMARY | 2018-03-23 12:11 | XMS REPORT ---
Author Author FLORENCIA HINOJOSA Organization [facility] Address [address] [place] [address] Care Team Providers Care Location Worker Name Role Phone FLORENCIA HINOJOSA Unavailable PROBLEMS Type Condition ICD9-CM Code YAG08-ML Code Onset Dates Condition Status SNOMED Code Problem Arthritis M19.90 Active 9622966 Problem Chronic fatigue R53.82 Active 74796093 Problem Intractable migraine without aura and without status migrainosus G43.019 Active 129500036 Problem Memory loss R41.3 Active 46472046 Problem Other chronic pain G89.29 Active 01097330 Problem Mental status change resolved Z86.59 Active [id number] ALLERGIES No Information ENCOUNTERS Encounter Location Date Diagnosis [place] [id number] [place] [address] 33904- 9163 Jan, Intractable migraine without aura and without status migrainosus G43.019 [place] [address] 88874- 3896 Dec, [place] [id number] [place] [address] 45867- 4513 Dec, Intractable migraine without aura and without status migrainosus G43.019 [place] [id number] [place] [address] 94872- 0456 Nov, [place] [id number] [place] [address] 37933- 0608 Nov, Chronic fatigue R53.82 and Family history of thyroid disease Z83.49 [place] [address] 75597- 1487 Nov, Arthritis M19.90 ; Chronic fatigue R53.82 ; Family history of thyroid disease Z83.49 ; Grade IV hemorrhoids K64.3 and Other chronic pain G89.29 [facility] [address] [facility] [id number] [place] [address] 2546 Nov, Intractable migraine without aura and without status migrainosus G43.019 [facility] [address] [facility] [id number] [place] [address] 2546 Oct, [facility] [address] [facility] [id number] [place] [address] 74449 2546 Oct, Intractable migraine without aura and without status migrainosus G43.019 [facility] [address] [facility] [id number] [place] [address] 2546 Oct, [facility] [id number] [place] [address] 64660 2546 Oct, [facility] [id number] [place] [address] 98476 2546 Sep, Tremors of nervous system R25.1 [facility] [id number] [place] [address] 97186 2546 Sep, [facility] [id number] [place] [address] 84679 2546 Sep, Intractable migraine without aura and without status migrainosus G43.019 [facility] [address] [id number] [address] 2546 Sep, [facility] [id number] [place] [address] 50777 2546 Sep, [facility] [address] [facility] [id number] [place] [address] 2546 Sep, Acute medial meniscus tear of right knee, initial encounter S83.241A and Acute lateral meniscus tear of left knee, initial encounter S83.282A [facility] [address] [id number] [address] 2546 Aug, Intractable migraine without aura and without status migrainosus G43.019 [facility] [id number] [address]- 3413 Aug, [facility] [id number] [place] [address] 51071- 6846 Aug, [facility] [id number] [place] [address] 12293- 8486 Jul, [facility] [id number] [place] [address] 96782- 4381 Jul, [facility] [id number] [place] [address] 07706- 3764 Jul, Intractable migraine without aura and without status migrainosus G43.019 ; Memory loss R41.3 ; Mental status change resolved Z86.59 ; Other chronic pain G89.29 and Pain in right knee M25.561 [facility] [id number] [place] [address] 67427- 6647 Jul, [facility] [id number] [place] [address] 48395- 8370 Jun, Tremors of nervous system R25.1 and Pelvic pain R10.2 [facility] [id number] [place] [address] 30493- 0471 Jun, [facility] [id number] [place] [address] 50435- 0021 Jun, [facility] [id number] [place] [address] 39418- 3046 Jun, [facility] [id number] [place] [address] 33150- 3257 May, [facility] [id number] [place] [address] 98669- 0832 May, [facility] [id number] [place] [address] 63572- 0990 May, Kidney pain N23 [facility] [id number] [place] [address] 58547- 2503 May, Pelvic pain R10.2 [facility] [id number] [place] [address] 13466 -8295 May, Wasp sting, accidental or unintentional, initial encounter T63.461A and Allergic contact dermatitis due to other agents L23.89 [facility] [address] [place] [address] 33067- 2210 May, [facility] [id number] [place] [address] 11500- 7564 May, Pelvic pain R10.2 [facility] [id number] [place] [address] 01264- 1630 May, [facility] [id number] [place] [address] 38234- 6759 Apr, Tremors of nervous system R25.1 ; Blood in stool, gabby K92.1 ; 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 ; Memory loss R41.3 and Intractable migraine without aura and without status migrainosus G43.019 [facility] [address] [place] [address] 98752- 2267 Apr, Blood in stool, gabby K92.1 [facility] [address] [place] [address] 16709- 1799 Apr, Tremors of nervous system R25.1 ; 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 ; Memory loss R41.3 and Intractable migraine without aura and without status migrainosus G43.019 [facility] [address] [address]- 0879 Apr, [facility] [id number] [place] [address] 92159- 2038 Apr, Tremor R25.1 [facility] [id number] [place] [address] 42440- 6018 March, [facility] [id number] [place] [address] 82982- 7465 March, Cyst of right ovary N83.201 [facility] [id number] [place] [address] 93139- 1468 March, Blood in stool, gabby K92.1 and Other fatigue R53.83 [facility] [id number] [place] [address] 69096 2546 March, Cyst of right ovary N83.201 [facility] [id number] [place] [address] 30081 2549 Feb, [facility] [id number] [place] [address] 17740- 6652 Feb, [facility] [address] 16046- 2057 Feb, Cyst of right ovary N83.201 and Right lower quadrant abdominal pain R10.31 [place] [id number] [place] [address] 39366- 6450 Jan, Pelvic pain R10.2 [facility] [id number] [place] [address] 65285- 9338 Jan, [facility] [address] 31001- 1549 Jan, [facility] [id number] [place] [address] 11802- 4174 Jan, Left groin pain R10.30 [facility] [id number] [place] [address] 26045- 9017 Dec, [facility] [id number] [place] [address] 44921- 0967 Dec, Pelvic pain R10.2 and Lumbosacral neuritis M54.17 [facility] [id number] [place] [address] 33062- 4876 Dec, [facility] [id number] [place] [address] 19074- 1110 Dec, Lymph node enlargement R59.9 [facility] [id number] [place] [address] 07393- 1668 Nov, Lymph node enlargement R59.9 [facility] [id number] [place] [address] 63430- 9777 Nov, [facility] [id number] [place] [address] 48312- 9774 Nov, Left groin pain R10.30 [facility] [id number] [place] [address] 11133- 8580 Nov, Varicose vein of leg I83.90 ; Essential hypertension I10 and Short lasting unilateral neuralgiform headache with conjunctival injection and tearing (SUNCT), not intractable G44.059 [facility] [id number] [place] [address] 97377 -5403 07 Jul, 2016 Post concussion syndrome F07.81 [facility] [address] 96480- 8505 Jul, [facility] [id number] [place] [address] 15331- 2906 Oct, [facility] [id number] [place] [address] 62337- 2482 Oct, [facility] [id number] [place] [address] 58556- 3512 Aug, [facility] [id number] [place] [address] 11681- 3355 Aug, Obesity 278.00 [facility] [id number] [place] [address] 07877- 9324 Aug, [facility] [address] 53182- 2140 Jul, Obesity 278.00 and Cervical spondylosis without myelopathy 721.0 [facility] [id number] [place] [address] 47609- 9238 March, [facility] [address] [facility] [id number] [place] [address]- 4882 Feb, Cervical spondylosis 721.0 [facility] [place] [facility] [address] [facility] [id number] [place] [address]- 1430 14 Feb, 2015 [facility] [place] [facility] [address] [facility] [id number] [place] [address]- 0972 Feb, [facility] [place] [facility] [address] [facility] [id number] [place] [address]- 5475 Jan, [facility] [place] [facility] [address] [facility] [id number] [place] [address]- 1895 Jan, [facility] [place] [facility] [address] [facility] [id number] [place] [address]- 9786 Jan, [facility] [place] [facility] [id number] [place] [address]- 5174 Jan, [facility] [place] [facility] [address] [facility] [id number] [place] [address]- 4014 Jan, [facility] [place] [facility] [id number] [place] [address]- 8845 Jan, [facility] [place] [facility] [address] [facility] [id number] [place] [address]- 3778 Dec, [facility] [place] [facility] [id number] [address]- 0238 Dec, [facility] [place] [facility] [address] [facility] [id number] [place] [address]- 8064 Dec, [facility] [place] [facility] [address] [facility] [id number] [place] [address]- 5628 Dec, [facility] [place] [facility] [address] [facility] [id number] [place] [address]- 5097 Nov, [facility] [place] [facility] [id number] [place] [address]- 9212 Nov, [facility] [place] [facility] [address] [id number] [place] [address]- 9800 16 Nov, 2014 [facility] [place] [facility] [address] [id number] [place] [address]- 9363 15 Nov, 2014 [facility] [place] [facility] [address] [id number] [place] [address]- 6183 14 Nov, 2014 [facility] [place] [facility] [address] [id number] [place] [address]- 8378 14 Nov, 2014 [facility] [place] [facility] [address] [id number] [place] [address]- 5418 Nov, [facility] [place] [facility] [address] [id number] [place] [address]- 8773 Nov, [facility] [place] [facility] [address] [id number] [place] [address]- 3573 Oct, [facility] [place] [facility] [address] [id number] [place] [address]- 2939 Oct, [facility] [place] [facility] [address] [id number] [place] [address]- 5859 Sep, [facility] [place] [facility] [address] [id number] [place] [address]- 4825 Sep, [facility] [place] [facility] [address] [id number] [place] [address]- 4330 Sep, [facility] [place] [facility] [address] [id number] [place] [address]- 9050 Sep, [facility] [place] [facility] [address] [id number] [place] [address]- 0704 29 Jul, 2014 [facility] [place] [facility] [address] [id number] [place] [address]- 0283 29 Jul, 2014 [facility] [place] [facility] [address] [id number] [place] [address]- 4771 Jul, [facility] [place] [facility] [address] [id number] [place] [address]- 4394 Jul, [facility] [place] [facility] [address] [id number] [place] [address]- 1309 Jul, [facility] [place] [facility] [address] [id number] [place] [address]- 1286 Jul, [facility] [place] [facility] [address] [id number] [place] [address]- 7760 Jul, [facility] [place] [facility] [address] [id number] [place] [address]- 1639 Jul, [facility] [place] [facility] [address] [id number] [place] [address]- 1280 Jul, [facility] [place] [facility] [address] [id number] [place] [address]- 2680 Jul, [facility] [place] [facility] [address] [id number] [place] [address]- 9031 Jun, [facility] [place] [facility] [address] [id number] [place] [address]- 3154 Jun, [facility] [place] [facility] [address] [id number] [place] [address]- 9053 Jun, [facility] [place] [facility] [address] [id number] [place] [address]- 0298 Jun, [facility] [place] [facility] [address] [id number] [place] [address]- 2616 Jun, [facility] [place] [facility] [address] [id number] [place] [address]- 1318 Jun, [facility] [place] [facility] [address] [id number] [place] [address]- 1123 May, [facility] [place] [facility] [address] [id number] [place] [address]- 9733 May, [facility] [place] [facility] [address] [id number] [place] [address]- 8259 May, [facility] [place] [facility] [address] [id number] [place] [address]- 9360 11 May, 2014 [facility] [place] [facility] [address] [id number] [place] [address]- 1102 07 May, 2014 [facility] [place] [facility] [address] [id number] [place] [address]- 9583 07 May, 2014 [facility] [place] [facility] [address] [id number] [place] [address]- 0891 24 Apr, 2014 [facility] [place] [facility] [address] [id number] [place] [address]- 2163 Apr, [facility] [place] [facility] [address] [id number] [place] [address]- 0912 Apr, [facility] [place] [facility] [address] [id number] [place] [address]- 7714 Apr, [facility] [place] [facility] [address] [id number] [place] [address]- 2175 Apr, [facility] [place] [facility] [address] [id number] [place] [address]- 6760 Apr, [facility] [place] [facility] [address] [id number] [place] [address]- 8288 Apr, [facility] [place] [facility] [address] [id number] [place] [address]- 9810 Apr, [facility] [place] [facility] [address] [id number] [place] [address]- 7064 Apr, [facility] [place] [facility] [address] [id number] [place] [address]- 2179 Apr, [facility] [place] [facility] [address] [id number] [place] [address]- 3377 Apr, [facility] [place] [facility] [address] [id number] [place] [address]- 5401 Apr, [facility] [place] [facility] [address] [id number] [place] [address]- 7825 Apr, [facility] [place] [facility] [address] [id number] [place] [address]- 5188 March, [facility] [place] [facility] [address] [id number] [place] [address]- 0943 March, [facility] [place] [facility] [address] [id number] [place] [address]- 1025 March, [facility] [place] [facility] [address] [id number] [place] [address]- 4167 March, [facility] [place] [facility] [address] [id number] [place] [address]- 9929 March, [facility] [place] [facility] [address] [id number] [place] [address]- 1883 March, [facility] [place] [facility] [address] [id number] [place] [address]- 7120 Feb, [facility] [place] [facility] [address] [id number] [place] [address]- 4528 Feb, [facility] [place] [facility] [address] [id number] [place] [address]- 4073 Feb, [facility] [place] [facility] [address] [id number] [place] [address]- 5167 Feb, [facility] [place] [facility] [address] [id number] [place] [address]- 8880 Feb, [facility] [place] [facility] [address] [id number] [place] [address]- 2767 Feb, [facility] [place] [facility] [address] [id number] [place] [address]- 7971 Feb, [facility] [place] [facility] [address] [id number] [place] [address]- 0777 15 Feb, 2014 [facility] [place] [facility] [address] [id number] [place] [address]- 6541 Feb, [facility] [place] [facility] [address] [id number] [place] [address]- 7286 Feb, [facility] [place] [facility] [address] [id number] [place] [address]- 9659 Jan, [facility] [place] [facility] [address] [id number] [place] 1787 Jan, [facility] [place] [facility] [address] [id number] [place] [address]- 2983 Jan, [facility] [place] [facility] [address] [id number] [place] [address]- 0353 Jan, [facility] [place] [facility] [address] [id number] [place] [address]- 9843 Dec, [facility] [place] [facility] [address] [id number] [place] [address]- 4440 Dec, [facility] [place] [facility] [address] [id number] [place] [address]- 1649 Sep, [facility] [place] [facility] [address] [id number] [place] [address]- 1070 Sep, [facility] [place] [facility] [address] [id number] [place] [address] Aug, [facility] [place] [facility] [address] [id number] [place] [address] Aug, [facility] [place] [facility] [address] [id number] [place] [address] Aug, [facility] [place] [facility] [address] [id number] [place] [address] Aug, [facility] [place] [facility] [address] [id number] [place] [address] Aug, [facility] [place] [facility] [address] [id number] [place] [id number] May, [facility] [place] [facility] [address] [id number] [place] [address] Jan, [facility] [place] [facility] [address] [facility] [id number] [place] [address] Jan, [facility] [place] [address] [facility] [id number] [place] [address] Dec, IMMUNIZATIONS No Known Immunizations SOCIAL HISTORY Never Assessed REASON FOR VISIT medication refill PLAN OF CARE VITAL SIGNS MEDICATIONS [...]
--- OUTSIDE RECORDS SUMMARY | 2018-03-23 12:11 | XMS REPORT ---
Author Author FLORENCIA HINOJOSA Organization [facility] Address [address] [place] [address] Care Team Providers Care Accounting Recruiter Name Role Phone FLORENCIA HINOJOSA Unavailable PROBLEMS Type Condition ICD9-CM Code YBE28-JA Code Onset Dates Condition Status SNOMED Code Problem Arthritis M19.90 Active 0433351 Problem Chronic fatigue R53.82 Active 64525180 Problem Intractable migraine without aura and without status migrainosus G43.019 Active 939983328 Problem Memory loss R41.3 Active 55558102 Problem Other chronic pain G89.29 Active 92163503 Problem Mental status change resolved Z86.59 Active [id number] ALLERGIES No Information ENCOUNTERS Encounter Location Date Diagnosis [place] [id number] [place] [address] 54457- 7425 Jan, Intractable migraine without aura and without status migrainosus G43.019 [place] [address] 82367- 5207 Dec, [place] [id number] [place] [address] 76518- 2449 Dec, Intractable migraine without aura and without status migrainosus G43.019 [place] [id number] [place] [address] 30559- 9838 Nov, [place] [id number] [place] [address] 49344- 3592 Nov, Chronic fatigue R53.82 and Family history of thyroid disease Z83.49 [place] [address] 51496- 3292 Nov, Arthritis M19.90 ; Chronic fatigue R53.82 ; Family history of thyroid disease Z83.49 ; Grade IV hemorrhoids K64.3 and Other chronic pain G89.29 [facility] [address] [facility] [id number], [place] [address] 2546 Nov, Intractable migraine without aura and without status migrainosus G43.019 [facility] [address] [facility] [id number], [place] [address] 2546 Oct, [facility] [address] [facility] [id number] [place] [address] 77391 2546 Oct, Intractable migraine without aura and without status migrainosus G43.019 [facility] [address] [facility] [id number], [place] [address] 2546 Oct, [facility] [id number] [place] [address] 85479 2546 Oct, [facility] [id number] [place] [address] 59067 2546 Sep, Tremors of nervous system R25.1 [facility] [id number] [place] [address] 79876 2546 Sep, [facility] [id number] [place] [address] 40515 2546 Sep, Intractable migraine without aura and without status migrainosus G43.019 [facility] [address] [id number], [place] [address] 2546 Sep, [facility] [id number] [place] [address] 72062 2546 Sep, [facility] [address] [facility] [id number], [place] [address] 2546 Sep, Acute medial meniscus tear of right knee, initial encounter S83.241A and Acute lateral meniscus tear of left knee, initial encounter S83.282A [facility] [address] [id number], [place] [address] 2546 Aug, Intractable migraine without aura and without status migrainosus G43.019 [facility] [address] [id number] [address]- 1366 Aug, [facility] [id number] [place] [address] 86138- 9960 Aug, [facility] [id number] [place] [address] 08672- 6068 Jul, [facility] [id number] [place] [address] 26049- 4471 Jul, [facility] [id number] [place] [address] 38682- 2583 Jul, Intractable migraine without aura and without status migrainosus G43.019 ; Memory loss R41.3 ; Mental status change resolved Z86.59 ; Other chronic pain G89.29 and Pain in right knee M25.561 [facility] [id number] [place] [address] 94614- 5053 Jul, [facility] [id number] [place] [address] 38836- 5468 Jun, Tremors of nervous system R25.1 and Pelvic pain R10.2 [facility] [id number] [place] [address] 69638- 0947 Jun, [facility] [id number] [place] [address] 38153- 5887 Jun, [facility] [id number] [place] [address] 02557- 9913 Jun, [facility] [id number] [place] [address] 19564- 4109 May, [facility] [id number] [place] [address] 76750- 8806 May, [facility] [id number] [place] [address] 18603- 3701 May, Kidney pain N23 [facility] [id number] [place] [address] 16743- 1700 May, Pelvic pain R10.2 [facility] [id number] [place] [address] 69842 -3491 May, Wasp sting, accidental or unintentional, initial encounter T63.461A and Allergic contact dermatitis due to other agents L23.89 [facility] [id number] [place] [address] 16492- 2234 May, [facility] [id number] [place] [address] 30642- 2759 May, Pelvic pain R10.2 [facility] [id number] [place] [address] 38779- 0851 May, [facility] [id number] [place] [address] 75618- 0863 Apr, Tremors of nervous system R25.1 ; Blood in stool, gabby K92.1 ; 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 ; Memory loss R41.3 and Intractable migraine without aura and without status migrainosus G43.019 [facility] [id number] [place] [address] 89653- 5982 Apr, Blood in stool, gabby K92.1 [facility] [id number] [place] [address] 63437- 5044 Apr, Tremors of nervous system R25.1 ; 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 ; Memory loss R41.3 and Intractable migraine without aura and without status migrainosus G43.019 [facility] [address], [place] [address]- 2270 Apr, [facility] [id number] [place] [address] 09434- 7709 Apr, Tremor R25.1 [facility] [id number] [place] [address] 63371- 3637 March, [facility] [id number] [place] [address] 90304- 5111 March, Cyst of right ovary N83.201 [facility] [id number] [place] [address] 98858- 6515 March, Blood in stool, gabby K92.1 and Other fatigue R53.83 [facility] [id number] [place] [address] 12362 2546 March, Cyst of right ovary N83.201 [facility] [id number] [place] [address] 04679 254 Feb, [facility] [id number] [place] [address] 71293- 1685 Feb, [facility] [address] 94384- 7042 Feb, Cyst of right ovary N83.201 and Right lower quadrant abdominal pain R10.31 [place] [id number] [place] [address] 74501- 1968 Jan, Pelvic pain R10.2 [facility] [id number] [place] [address] 28605- 9458 Jan, [facility] [address] 40176- 8349 Jan, [facility] [id number] [place] [address] 78163- 3918 Jan, Left groin pain R10.30 [facility] [id number] [place] [address] 84108- 5544 Dec, [facility] [id number] [place] [address] 11014- 0548 Dec, Pelvic pain R10.2 and Lumbosacral neuritis M54.17 [facility] [id number] [place] [address] 84485- 9766 Dec, [facility] [id number] [place] [address] 04160- 1600 Dec, Lymph node enlargement R59.9 [facility] [id number] [place] [address] 17070- 5019 Nov, Lymph node enlargement R59.9 [facility] [id number] [place] [address] 27344- 2965 Nov, [facility] [id number] [place] [address] 50710- 5315 Nov, Left groin pain R10.30 [facility] [id number] [place] [address] 37337- 9368 Nov, Varicose vein of leg I83.90 ; Essential hypertension I10 and Short lasting unilateral neuralgiform headache with conjunctival injection and tearing (SUNCT), not intractable G44.059 [facility] [id number] [place] [address] 10113 -4986 07 Jul, 2016 Post concussion syndrome F07.81 [facility] [address] 86641- 1320 Jul, [facility] [id number] [place] [address] 01432- 3637 Oct, [facility] [id number] [place] [address] 23203- 8170 Oct, [facility] [id number] [place] [address] 48718- 0167 Aug, [facility] [id number] [place] [address] 70616- 6916 Aug, Obesity 278.00 [facility] [id number] [place] [address] 47986- 9828 Aug, [facility] [address] 66908- 4389 Jul, Obesity 278.00 and Cervical spondylosis without myelopathy 721.0 [facility] [id number] [place] [address] 07471- 7376 March, [facility] [address] [facility] [id number] [place] [address]- 4004 Feb, Cervical spondylosis 721.0 [facility] [place] [facility] [address] [facility] [id number] [place] [address]- 8397 14 Feb, 2015 [facility] [place] [facility] [address] [facility] [id number] [place] [address]- 2668 Feb, [facility] [place] [facility] [address] [facility] [id number], [place] [address]- 7651 Jan, [facility] [place] [facility] [address] [facility] [id number] [place] [address]- 1855 Jan, [facility] [place] [facility] [address] [facility] [id number], [place] [address]- 3057 Jan, [facility] [place] [facility] [id number] [place] [address]- 1630 Jan, [facility] [place] [facility] [address] [facility] [id number], [place] [address]- 4882 Jan, [facility] [place] [facility] [id number] [place] [address]- 9042 Jan, [facility] [place] [facility] [address] [facility] [id number] [place] [address]- 8875 Dec, [facility] [place] [facility] [id number], [place] [address]- 3507 Dec, [facility] [place] [facility] [address] [facility] [id number], [place] [address]- 7028 Dec, [facility] [place] [facility] [address] [facility] [id number] [place] [address]- 7932 Dec, [facility] [place] [facility] [address] [facility] [id number], [place] [address]- 4203 Nov, [facility] [place] [facility] [id number] [place] [address]- 6384 Nov, [facility] [place] [facility] [address] [id number] [place] [address]- 3026 16 Nov, 2014 [facility] [place] [facility] [address] [id number] [place] [address]- 3562 15 Nov, 2014 [facility] [place] [facility] [address] [id number] [place] [address]- 5182 14 Nov, 2014 [facility] [place] [facility] [address] [id number] [place] [address]- 9974 14 Nov, 2014 [facility] [place] [facility] [address] [id number] [place] [address]- 6965 Nov, [facility] [place] [facility] [address] [id number] [place] [address]- 5649 Nov, [facility] [place] [facility] [address] [id number] [place] [address]- 7923 Oct, [facility] [place] [facility] [address] [id number] [place] [address]- 6630 Oct, [facility] [place] [facility] [address] [id number] [place] [address]- 3787 Sep, [facility] [place] [facility] [address] [id number] [place] [address]- 0433 Sep, [facility] [place] [facility] [address] [id number] [place] [address]- 7518 Sep, [facility] [place] [facility] [address] [id number] [place] [address]- 4840 Sep, [facility] [place] [facility] [address] [id number] [place] [address]- 6527 29 Jul, 2014 [facility] [place] [facility] [address] [id number] [place] [address]- 0495 29 Jul, 2014 [facility] [place] [facility] [address] [id number] [place] [address]- 6841 Jul, [facility] [place] [facility] [address] [id number] [place] [address]- 8711 Jul, [facility] [place] [facility] [address] [id number] [place] [address]- 7160 Jul, [facility] [place] [facility] [address] [id number] [place] [address]- 5726 Jul, [facility] [place] [facility] [address] [id number] [place] [address]- 2191 Jul, [facility] [place] [facility] [address] [id number] [place] [address]- 9295 Jul, [facility] [place] [facility] [address] [id number] [place] [address]- 0861 Jul, [facility] [place] [facility] [address] [id number] [place] [address]- 8986 Jul, [facility] [place] [facility] [address] [id number] [place] [address]- 6291 Jun, [facility] [place] [facility] [address] [id number] [place] [address]- 4928 Jun, [facility] [place] [facility] [address] [id number] [place] [address]- 5613 Jun, [facility] [place] [facility] [address] [id number] [place] [address]- 8815 Jun, [facility] [place] [facility] [address] [id number] [place] [address]- 1439 Jun, [facility] [place] [facility] [address] [id number] [place] [address]- 5667 Jun, [facility] [place] [facility] [address] [id number] [place] [address]- 0891 May, [facility] [place] [facility] [address] [id number] [place] [address]- 6445 May, [facility] [place] [facility] [address] [id number] [place] [address]- 0168 May, [facility] [place] [facility] [address] [id number] [place] [address]- 9356 11 May, 2014 [facility] [place] [facility] [address] [id number] [place] [address]- 9685 07 May, 2014 [facility] [place] [facility] [address] [id number] [place] [address]- 8781 07 May, 2014 [facility] [place] [facility] [address] [id number] [place] [address]- 2024 24 Apr, 2014 [facility] [place] [facility] [address] [id number] [place] [address]- 6248 Apr, [facility] [place] [facility] [address] [id number] [place] [address]- 7194 Apr, [facility] [place] [facility] [address] [id number] [place] [address]- 9585 Apr, [facility] [place] [facility] [address] [id number] [place] [address]- 8440 Apr, [facility] [place] [facility] [address] [id number] [place] [address]- 4603 Apr, [facility] [place] [facility] [address] [id number] [place] [address]- 7259 Apr, [facility] [place] [facility] [address] [id number] [place] [address]- 3613 Apr, [facility] [place] [facility] [address] [id number] [place] [address]- 6860 Apr, [facility] [place] [facility] [address] [id number] [place] [address]- 6367 Apr, [facility] [place] [facility] [address] [id number] [place] [address]- 1797 Apr, [facility] [place] [facility] [address] [id number] [place] [address]- 1705 Apr, [facility] [place] [facility] [address] [id number] [place] [address]- 6772 Apr, [facility] [place] [facility] [address] [id number] [place] [address]- 9709 March, [facility] [place] [facility] [address] [id number] [place] [address]- 5915 March, [facility] [place] [facility] [address] [id number] [place] [address]- 0811 March, [facility] [place] [facility] [address] [id number] [place] [address]- 3396 March, [facility] [place] [facility] [address] [id number] [place] [address]- 5562 March, [facility] [place] [facility] [address] [id number] [place] [address]- 2943 March, [facility] [place] [facility] [address] [id number] [place] [address]- 0937 Feb, [facility] [place] [facility] [address] [id number] [place] [address]- 3260 Feb, [facility] [place] [facility] [address] [id number] [place] [address]- 1294 Feb, [facility] [place] [facility] [address] [id number] [place] [address]- 3642 Feb, [facility] [place] [facility] [address] [id number] [place] [address]- 1219 Feb, [facility] [place] [facility] [address] [id number] [place] [address]- 2201 Feb, [facility] [place] [facility] [address] [id number] [place] [address]- 8090 Feb, [facility] [place] [facility] [address] [id number] [place] [address]- 8138 15 Feb, 2014 [facility] [place] [facility] [address] [id number] [place] [address]- 2490 Feb, [facility] [place] [facility] [address] [id number] [place] [address]- 9806 Feb, [facility] [place] [facility] [address] [id number] [place] [address]- 1589 Jan, [facility] [place] [facility] [address] [id number] [place] 5680 Jan, [facility] [place] [facility] [address] [id number] [place] [address]- 1549 Jan, [facility] [place] [facility] [address] [id number] [place] [address]- 9666 Jan, [facility] [place] [facility] [address] [id number] [place] [address]- 4961 Dec, [facility] [place] [facility] [address] [id number] [place] [address]- 7802 Dec, [facility] [place] [facility] [address] [id number] [place] [address]- 2531 Sep, [facility] [place] [facility] [address] [id number] [place] [address]- 6793 Sep, [facility] [place] [facility] [address] [id number] [place] [address]- 2118 Aug, [facility] [place] [facility] [address] [id number] [place] [address]- 9738 Aug, [facility] [place] [facility] [address] [id number], [place] [address]- 1818 Aug, [facility] [place] [facility] [address] [id number], [place] [address]- 7001 Aug, [facility] [place] [facility] [address] [id number] [place] [address]- 2961 Aug, [facility] [place] [facility] [address] [id number] [place] 7589 May, [facility] [place] [facility] [address] [id number] [place] [address]- 8602 Jan, [facility] [place] [facility] [address] [facility] [id number] [place] [address] 0474 Jan, [facility] [address] [facility] [id number], [place] [address]- 3589 Dec, IMMUNIZATIONS No Known Immunizations SOCIAL HISTORY Never Assessed REASON FOR VISIT Controlled Med Refill PLAN OF CARE VITAL SIGNS MEDICATIONS Medication Instructions Dosage Frequency Start Date End Date Duration Status Oxycodone HCl 10 MG Orally 4 times a day 1 tablet as needed 6h May, 28 days Active RESULTS No Results [...]
--- OUTSIDE RECORDS SUMMARY | 2018-03-23 12:11 | XMS REPORT ---
Author Author CRYSTAL DIEGO Organization [facility] Address [address] [place] [address] Care Team Providers Care Band Aid Machine Operator Name Role Phone CRYSTAL DIEGO Unavailable PROBLEMS Type Condition ICD9-CM Code QRG78-[id number] Code Onset Dates Condition Status SNOMED Code Problem Other chronic pain G89.29 Active 95805743 Problem Mental status change resolved Z86.59 Active 796730490 Problem Memory loss R41.3 Active 74092729 Problem Intractable migraine without aura and without status migrainosus G43.019 Active 449644302 ALLERGIES No Information SOCIAL HISTORY Never Assessed PLAN OF CARE VITAL SIGNS MEDICATIONS Medication Instructions Dosage Frequency Start Date End Date Duration Status Lyons 10-325 MG Orally every 6 hrs 1 tablet as needed 6h March, 28 days Active RESULTS No Results PROCEDURES No Known procedures IMMUNIZATIONS No Known Immunizations MEDICAL (GENERAL) HISTORY Type Description Date Medical History Asthma Medical History Hives since 2000 Surgical History spinal fusion 2014 Surgical History Tonsillectomy Surgical History Appendectomy Surgical History section Surgical History epidural anesthesia/injection Surgical History Hemorrhoidecomy with umu Surgical History colonoscopy
--- OUTSIDE RECORDS SUMMARY | 2018-03-23 12:11 | XMS REPORT ---
Author Author FLORENCIA HINOJOSA [facility] Address [address] [place] [address] Care Team Providers Care Weighbridge Operator Name Role Phone FLORENCIA HINOJOSA Unavailable PROBLEMS Type Condition ICD9-CM Code ATA61-PV Code Onset Dates Condition Status SNOMED Code Problem Other chronic pain G89.29 Active 64480265 Problem Mental status change resolved Z86.59 Active 474825839 Problem Memory loss R41.3 Active 25869102 Problem Intractable migraine without aura and without status migrainosus G43.019 Active 686098083 ALLERGIES No Information SOCIAL HISTORY Never Assessed [...]
--- OUTSIDE RECORDS SUMMARY | 2018-03-23 12:12 | XMS REPORT ---
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 Name Role Phone FLORENCIA HINOJOSA Unavailable PROBLEMS Type Condition ICD9-CM Code PAK68-EA Code Onset Dates Condition Status SNOMED Code Problem Arthritis M19.90 Active 4948762 Problem Chronic fatigue R53.82 Active 97376411 Problem Intractable migraine without aura and without status migrainosus G43.019 Active 595315746 Problem Memory loss R41.3 Active 00802934 Problem Other chronic pain G89.29 Active 79691463 Problem Mental status change resolved Z86.59 Active 151877235 ALLERGIES Substance Reaction Event Type Date Status SulfADIAZINE Unknown Drug Allergy Jul, Active Prednisone nausea and vomiting Drug Allergy Jul, Active Morphine Sulfate nausea and vomiting Drug Allergy Jul, Active ENCOUNTERS Encounter Location Date Diagnosis [facility] [place] [id number] [place] [address] 27604- 9243 March, [facility] [id number] [place] [address] 57570- 2529 Feb, Intractable migraine without aura and without status migrainosus G43.019 [facility] [id number] [place] [address] 18529- 3189 Feb, Memory loss R41.3 and 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 [facility] [id number] [place] [address] 37105- 1117 Feb, Intractable migraine without aura and without status migrainosus G43.019 [facility] [id number] [place] [address] 86318- 0373 Jan, Intractable migraine without aura and without status migrainosus G43.019 [facility] [id number] [place] [address] 68395- 9865 Dec, [facility] [id number] [place] [address] 22543- 4928 Dec, Intractable migraine without aura and without status migrainosus G43.019 [facility] [id number] [place] [address] 20573- 7066 Nov, [facility] [id number] [place] [address] 55857- 0497 Nov, Chronic fatigue R53.82 and Family history of thyroid disease Z83.49 [facility] [id number] [place] [address] 185985- 3966 Nov, Arthritis M19.90 ; Chronic fatigue R53.82 ; Family history of thyroid disease Z83.49 ; Grade IV hemorrhoids K64.3 and Other chronic pain G89.29 [place] [place] [id number] [place] [address] 96557- 5988 Nov, Intractable migraine without aura and without status migrainosus G43.019 [facility] [id number] [place] [address] 07674- 4478 Oct, [facility] [id number] [place] [address] 70256- 0375 Oct, Intractable migraine without aura and without status migrainosus G43.019 [facility] [id number] [place] [address] 80990- 0286 Oct, [facility] [id number] [place] [address] 60012- 2546 Oct, [facility] [id number] [place] [address] 27555- 7459 Sep, Tremors of nervous system R25.1 [facility] [id number] [place] [address] 90034- 7289 Sep, [facility] [id number] [place] [address] 56957- 4821 Sep, Intractable migraine without aura and without status migrainosus G43.019 [facility] [id number] [place] [address] 09004- 5826 Sep, [facility] [id number] [place] [address] 58844- 3206 Sep, [facility] [id number] [place] [address] 36295- 2472 Sep, Acute medial meniscus tear of right knee, initial encounter S83.241A and Acute lateral meniscus tear of left knee, initial encounter S83.282A [facility] [id number] [place] [address] 06006- 6945 Aug, Intractable migraine without aura and without status migrainosus G43.019 [facility] [id number] [place] [address] 56150- 0236 Aug, [facility] [id number] [place] [address] 80650- 8160 Aug, [facility] [id number] [place] [address] 71848- 1790 Jul, [facility] [id number] [place] [address] 68047- 8963 Jul, [facility] [id number] [place] [address] 58516- 6583 Jul, Intractable migraine without aura and without status migrainosus G43.019 ; Memory loss R41.3 ; Mental status change resolved Z86.59 ; Other chronic pain G89.29 and Pain in right knee M25.561 [facility] [id number] [place] [address] 56404- 9330 Jul, [facility] [id number] [place] [address] 57992- 6660 Jun, Tremors of nervous system R25.1 and Pelvic pain R10.2 [facility] [id number] [place] [address] 49983- 2159 Jun, [facility] [id number] [place] [address] 94431- 4374 Jun, [facility] [id number] [place] [address] 74054- 6816 Jun, [facility] [id number] [place] [address] 52343- 3478 May, [facility] [address] 95224- 5033 May, [facility] [id number] [place] [address] 47540- 6103 May, Kidney pain N23 [facility] [id number] [place] [address] 87140- 3832 May, Pelvic pain R10.2 [facility] [id number] [place] [address] 58066 -8021 May, Wasp sting, accidental or unintentional, initial encounter T63.461A and Allergic contact dermatitis due to other agents L23.89 [facility] [id number] [place] [address] 51681- 7640 May, [facility] [id number] [place] [address] 31033- 0843 May, Pelvic pain R10.2 [facility] [id number] [place] [address] 17461- 3889 May, [facility] [id number] [place] [address] 75906- 8020 Apr, Tremors of nervous system R25.1 ; Blood in stool, gabby K92.1 ; 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 ; Memory loss R41.3 and Intractable migraine without aura and without status migrainosus G43.019 [facility] [id number] [place] [address] 04605- 0796 Apr, Blood in stool, gabby K92.1 [facility] [id number] [place] [address] 64265- 0392 Apr, Tremors of nervous system R25.1 ; 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 ; Memory loss R41.3 and Intractable migraine without aura and without status migrainosus G43.019 [facility] [id number] [place] [address] 41824- 9756 Apr, [facility] [id number] [place] [address] 38490- 8668 Apr, Tremor R25.1 [facility] [address] 66670- 2996 March, [place] [id number] [place] [address] 65735- 4726 March, Cyst of right ovary N83.201 [place] [address] 93276- 8115 March, Blood in stool, gabby K92.1 and Other fatigue R53.83 [place] [place] [id number] [place] [address] 61588- 4256 March, Cyst of right ovary N83.201 [place] [place] [id number] [place] [address] 46999- 9466 Feb, [place] [place] [id number] [place] [address] 22105- 2542 Feb, [facility] [id number] [place] [address] 77474- 2542 Feb, Cyst of right ovary N83.201 and Right lower quadrant abdominal pain R10.31 [place] [id number] [place] [address] 41815- 6306 Jan, Pelvic pain R10.2 [place] [id number] [place] [address] 15937- 6236 Jan, [place] [address] [place] [address]- 7796 Jan, [facility] [id number] [place] [address] 13131- 1685 Jan, Left groin pain R10.30 [facility] [id number] [place] [address] 85325- 3587 Dec, [facility] [address] 20833- 8408 Dec, Pelvic pain R10.2 and Lumbosacral neuritis M54.17 [facility] [address] 96574- 7551 Dec, [facility] [address] 93382- 3507 Dec, Lymph node enlargement R59.9 [facility] [address] 52298- 5628 Nov, Lymph node enlargement R59.9 [facility] [id number] [place] [address] 87577- 5219 Nov, [facility] [address] 11528- 0763 Nov, Left groin pain R10.30 [facility] [id number] [place] [address] 63656- 3928 Nov, Varicose vein of leg I83.90 ; Essential hypertension I10 and Short lasting unilateral neuralgiform headache with conjunctival injection and tearing (SUNCT), not intractable G44.059 [facility] [id number] [place] [address] 60457 -1625 Jul, Post concussion syndrome F07.81 [facility] [id number] [place] [address] 90769- 7419 Jul, [facility] [id number] [place] [address] 39296- 3486 Oct, [facility] [address] [place] [address]- 0456 Oct, [facility] [address] [place] [address]- 0956 Aug, [facility] [address] [place] [address]- 1616 Aug, Obesity 278.00 [facility] [id number] [place] [address] 53921- 4856 Aug, [facility] [address] [place] [address] 79043- 5766 Jul, Obesity 278.00 and Cervical spondylosis without myelopathy 721.0 [facility] [address] [place] [address]- 2546 March, [facility] [id number] [place] [address] 10941- 2086 30 Feb, 2015 Cervical spondylosis 721.0 [facility] [address] [place] [address]- 5786 Feb, [facility] [address] [place] [address]- 7656 Feb, [facility] [address] [place] [address]- 4306 Jan, [facility] [address] [place] [address]- 8146 Jan, [facility] [address] [place] [address]- 2426 Jan, [facility] [address] [place] [address]- 5106 Jan, [facility] [address] [place] [address]- 2546 09 Jan, 2015 [facility] [address] [place] [address]- 3392 Jan, [facility] [place] [facility] [address] [id number] [place] [address]- 8624 Dec, [facility] [place] [facility] [address] [id number] [place] [address]- 8009 Dec, [facility] [place] [facility] [address] [id number] [place] [address]- 2185 Dec, [facility] [place] [facility] [address] [id number] [place] [address]- 6747 Dec, [facility] [place] [facility] [address] [id number] [place] [address]- 0839 Nov, [facility] [place] [facility] [address] [id number] [place] [address]- 3700 Nov, [facility] [place] [facility] [address] [id number] [place] [address]- 4281 Nov, [facility] [place] [facility] [address] [id number] [place] [address]- 4546 Nov, [facility] [place] [facility] [address] [id number] [place] [address]- 0591 Nov, [facility] [place] [facility] [address] [id number] [place] [address]- 5258 Nov, [facility] [place] [facility] [address] [id number] [address]- 5128 Nov, [facility] [place] [facility] [address] [id number], [place] [address]- 8651 Nov, [facility] [place] [facility] [address] [id number] [place] [address]- 6720 Oct, [facility] [place] [facility] [address] [id number] [place] [address]- 7999 Oct, [facility] [place] [facility] [address] [id number] [place] [address]- 9535 Sep, [facility] [place] [facility] [address] [id number] [place] [address]- 6593 12 Sep, 2014 [facility] [place] [facility] [address] [id number] [place] [address]- 9741 Sep, [facility] [place] [facility] [address] [id number] [place] [address]- 1583 Sep, [facility] [place] [facility] [address] [id number] [place] [address]- 2297 29 Jul, 2013 [facility] [place] [facility] [address] [id number] [place] [address]- 2545 29 Jul, 2013 [facility] [place] [facility] [address] [id number] [place] [address]- 6566 Jul, 2013 [facility] [place] [facility] [address] [id number] [place] [address]- 3456 Jul, 2013 [facility] [place] [facility] [address] [id number] [place] [address]- 1093 Jul, 2013 [facility] [place] [facility] [address] [id number] [place] [address]- 4110 Jul, 2013 [facility] [place] [facility] [address] [id number] [place] [address]- 4661 Jul, 2013 [facility] [place] [facility] [address] [id number] [place] [address]- 3781 Jul, [facility] [place] [facility] [address] [id number] [place] [address]- 2544 Jul, 2013 [facility] [place] [facility] [address] [id number] [place] [address]- 2542 Jul, [facility] [place] [facility] [address] [id number] [place] [address]- 6523 Jun, [facility] [place] [facility] [address] [id number] [place] [address]- 3405 Jun, [facility] [place] [facility] [address] [id number] [place] [address]- 2004 Jun, [facility] [place] [facility] [address] [id number] [place] [address]- 0635 Jun, [facility] [place] [facility] [address] [id number] [place] [address]- 7547 Jun, [facility] [place] [facility] [address] [id number] [place] [address]- 3612 Jun, [facility] [place] [facility] [address] [id number] [place] [address]- 1921 May, [facility] [place] [facility] [address] [id number] [place] [address]- 3069 May, [facility] [place] [facility] [address] [id number] [place] [address]- 7746 May, [facility] [place] [facility] [address] [id number] [place] [address]- 7130 May, [facility] [place] [facility] [address] [id number] [place] [address]- 8065 May, [facility] [place] [facility] [address] [id number] [place] [address]- 5467 May, [facility] [place] [facility] [address] [id number] [place] [address]- 5669 Apr, [facility] [place] [facility] [address] [id number] [place] [address]- 2915 Apr, [facility] [place] [facility] [address] [id number] [place] [address]- 1424 Apr, [facility] [place] [facility] [address] [id number] [place] [address]- 6792 Apr, [facility] [place] [facility] [address] [id number] [place] [address]- 9995 Apr, [facility] [place] [facility] [address] [id number] [place] 3957 Apr, [facility] [place] [facility] [address] [id number] [place] [address]- 7740 Apr, [facility] [place] [facility] [address] [id number] [place] [address]- 0116 Apr, [facility] [place] [facility] [address] [id number] [place] [address]- 6142 Apr, [facility] [place] [facility] [address] [id number] [place] [address]- 4406 Apr, [facility] [place] [facility] [address] [id number] [place] [address]- 9546 Apr, [facility] [place] [facility] [address] [id number] [place] [address]- 4128 Apr, [facility] [place] [facility] [address] [id number] [place] [address]- 7160 Apr, [facility] [place] [facility] [address] [id number] [place] [address]- 5871 March, [facility] [place] [facility] [address] [id number] [place] [address]- 4788 March, [facility] [place] [facility] [address] [id number] [place] [address]- 0683 March, [facility] [place] [facility] [address] [id number] [place] [address]- 5262 March, [facility] [place] [facility] [address] [id number] [place] [address]- 6160 March, [facility] [place] [facility] [address] [id number] [place] [address]- 7278 March, [facility] [place] [facility] [address] [id number] [place] [address]- 5828 Feb, [facility] [place] [facility] [address] [id number] [place] [address]- 7152 Feb, [facility] [place] [facility] [address] [id number] [place] [address]- 2007 Feb, [facility] [place] [facility] [address] [id number] [place] [address]- 2089 Feb, [facility] [place] [facility] [address] [id number] [place] [address]- 6784 Feb, [facility] [place] [facility] [address] [id number] [place] [address]- 6033 Feb, [facility] [place] [facility] [address] [id number] [place] [address]- 9216 Feb, [facility] [place] [facility] [address] [id number] [place] [address]- 8809 15 Feb, 2014 [facility] [place] [facility] [address] [id number] [place] [address]- 0603 Feb, [facility] [place] [facility] [address] [id number] [place] [address]- 0087 Feb, [facility] [place] [facility] [address] [id number] [place] [address]- 0471 24 Jan, 2014 [facility] [place] [facility] [address] [id number] [place] [address]- 5162 24 Jan, 2014 [facility] [place] [facility] [address] [id number] [place] [address]- 2812 Jan, [facility] [place] [facility] [address] [id number] [place] [address]- 7784 Jan, [facility] [place] [facility] [address] [id number] [place] [address]- 2828 Dec, [facility] [place] [facility] [address] [id number] [place] [address]- 4843 Dec, [facility] [place] [facility] [address] [id number] [place] [address]- 3710 Sep, [facility] [place] [facility] [address] [id number] [place] [address]- 7507 Sep, [facility] [place] [facility] [address] [id number], [place] [address]- 9856 Aug, [facility] [address] [facility] [id number] [address]- 0246 Aug, [facility] [id number] [address] 2546 Aug, [facility] [id number] [address] 2546 Aug, [facility] [address], [place] [address] 2546 Aug, [facility] [address] [place] [address]- 0054 May, [facility] [address], [place] [address] 2546 Jan, [facility] [address], [place] [address] 2546 Jan, [facility] [id number] [address] 2546 Dec, IMMUNIZATIONS No Known Immunizations SOCIAL HISTORY Never Assessed REASON FOR VISIT neurology f/u, pain in right knee--Parker Larsen MA PLAN OF CARE VITAL SIGNS Height 66 in 2017-08-14 Weight 162.9 lbs 2017-08-14 Temperature 98.6 degrees Fahrenheit 2017-08-14 Heart Rate 82 bpm 2017-08-14 Respiratory Rate 18 2017-08-14 BMI 26.29 kg/m2 2017-08-14 Blood pressure systolic 102 mmHg 2017-08-14 Blood pressure diastolic 78 mmHg 2017-08-14 MEDICATIONS Medication Instructions Dosage Frequency Start Date End Date Duration Status Depakote 500 MG Orally 2 times a day 1 tablet 12h Apr, 30 days Active Oxycodone HCl 10 mg Orally 4 times a day 1 tablet as needed 6h Jul, Aug, 28 days Active RESULTS Name Result Date Reference Range Xray : Knee, Right 3 views (IN HOUSE) 2017-08-14 PROCEDURES Procedure Date Ordered Result Body Site X-RAY EXAM OF KNEE, 3 Aug 14, 2017 INSTRUCTIONS MEDICATIONS ADMINISTERED No Known Medications MEDICAL (GENERAL) HISTORY Type Description Date Medical History Asthma Medical History Hives since 2000 Surgical History spinal fusion 2014 Surgical History Tonsillectomy Surgical History Appendectomy Surgical History section Surgical History epidural anesthesia/injection Surgical History Hemorrhoidecomy with umu Surgical History colonoscopy
--- OUTSIDE RECORDS SUMMARY | 2018-03-23 12:12 | XMS REPORT ---
Author Author FLORENCIA HINOJOSA Organization [facility] Address [address] [place] [address] Care Team Providers Care Auto Body Repairer Fiberglass Name Role Phone FLORENCIA HINOJOSA Unavailable PROBLEMS Type Condition ICD9-CM Code BTH08-OQ Code Onset Dates Condition Status SNOMED Code Problem Arthritis M19.90 Active 8780055 Problem Chronic fatigue R53.82 Active 27079265 Problem Intractable migraine without aura and without status migrainosus G43.019 Active 400069279 Problem Memory loss R41.3 Active 40709381 Problem Other chronic pain G89.29 Active 20055096 Problem Mental status change resolved Z86.59 Active 855061721 ALLERGIES No Information ENCOUNTERS Encounter Location Date Diagnosis [facility] [id number] [place] [address] 64742- 7569 March, [facility] [id number] [place] [address] 41012- 8939 Feb, Memory loss R41.3 and 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 [facility] [id number] [place] [address] 42303- 6309 Feb, Intractable migraine without aura and without status migrainosus G43.019 [facility] [id number] [place] [address] 76513- 4736 Jan, Intractable migraine without aura and without status migrainosus G43.019 [facility] [facility] [id number] [place] [address] 05379- 0116 Dec, [facility] [id number] [place] [address] 41746- 4439 Dec, Intractable migraine without aura and without status migrainosus G43.019 [facility] [id number] [place] [address] 56111- 4020 Nov, [facility] [address], [place] [address] 4064 Nov, Chronic fatigue R53.82 and Family history of thyroid disease Z83.49 [facility] [id number] [place] [address] 50848- 2345 17 Nov, 2017 Arthritis M19.90 ; Chronic fatigue R53.82 ; Family history of thyroid disease Z83.49 ; Grade IV hemorrhoids K64.3 and Other chronic pain G89.29 [facility] [id number] [place] [address] 91081- 6844 Nov, Intractable migraine without aura and without status migrainosus G43.019 [facility] [id number] [place] [address] 69893- 8117 Oct, [facility] [id number] [place] [address] 67141- 1462 Oct, Intractable migraine without aura and without status migrainosus G43.019 [facility] [id number] [place] [address] 67821- 2238 Oct, [facility] [id number] [place] [address] 59731- 9400 Oct, [facility] [id number] [place] [address] 06797- 0902 Sep, Tremors of nervous system R25.1 [facility] [id number] [place] [address] 82302- 2386 Sep, [facility] [id number] [place] [address] 63038- 1815 Sep, Intractable migraine without aura and without status migrainosus G43.019 [facility] [id number] [place] [address] 23863- 2546 Sep, [facility] [id number] [place] [address] 94470- 5762 Sep, [facility] [address], [place] [address] 2137 Sep, Acute medial meniscus tear of right knee, initial encounter S83.241A and Acute lateral meniscus tear of left knee, initial encounter S83.282A [facility] [id number] [place] [address] 32412- 4036 Aug, Intractable migraine without aura and without status migrainosus G43.019 [facility] [id number] [place] [address] 89586- 9136 Aug, [facility] [id number] [place] [address] 60564- 2326 Aug, [facility] [id number] [place] [address] 15478- 3886 Jul, [facility] [id number] [place] [address] 20415- 9218 Jul, [facility] [id number] [place] [address] 59632- 3081 Jul, Intractable migraine without aura and without status migrainosus G43.019 ; Memory loss R41.3 ; Mental status change resolved Z86.59 ; Other chronic pain G89.29 and Pain in right knee M25.561 [facility] [id number] [place] [address] 41621- 4427 Jul, [facility] [id number] [place] [address] 47961- 6309 Jun, Tremors of nervous system R25.1 and Pelvic pain R10.2 [facility] [id number] [place] [address] 36561- 1493 Jun, [facility] [id number] [place] [address] 19052- 9449 Jun, [facility] [id number] [place] [address] 88678- 2869 Jun, [facility] [address], [place] [address]- 1769 May, [facility] [id number] [place] [address] 75213- 9787 May, [facility] [address], [place] [address]- 5722 May, Kidney pain N23 [facility] [id number] [place] [address] 12537- 9678 May, Pelvic pain R10.2 [facility] [id number] [place] [address] 61368 -1963 May, Wasp sting, accidental or unintentional, initial encounter T63.461A and Allergic contact dermatitis due to other agents L23.89 [facility] [address], [place] [address]- 2176 May, [facility] [id number] [place] [address] 03593- 8524 May, Pelvic pain R10.2 [facility] [address], [place] [address]- 8977 May, [facility] [address], [place] [address]- 2948 Apr, Tremors of nervous system R25.1 ; Blood in stool, gabby K92.1 ; 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 ; Memory loss R41.3 and Intractable migraine without aura and without status migrainosus G43.019 [facility] [address], [place] [address] 2546 Apr, Blood in stool, gabby K92.1 [facility] [address], [place] [address] 2546 Apr, Tremors of nervous system R25.1 ; 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 ; Memory loss R41.3 and Intractable migraine without aura and without status migrainosus G43.019 [facility] [id number] [address]- 9257 Apr, [facility] [id number] [place] [address] 21004- 1826 Apr, Tremor R25.1 [facility] [id number] [place] [address] 45001- 9378 March, [facility] [id number] [place] [address] 39665- 8704 March, Cyst of right ovary N83.201 [facility] [id number] [place] [address] 77668- 1532 March, Blood in stool, gabby K92.1 and Other fatigue R53.83 [facility] [id number] [place] [address] 49647- 0823 March, Cyst of right ovary N83.201 [facility] [id number] [place] [address] 32366- 2153 Feb, [facility] [id number] [place] [address] 61715- 9290 Feb, [facility] [id number] [place] [address] 48617- 8503 Feb, Cyst of right ovary N83.201 and Right lower quadrant abdominal pain R10.31 [facility] [id number] [place] [address] 87904- 5225 Jan, Pelvic pain R10.2 [facility] [id number] [place] [address] 58318- 1707 Jan, [facility] [id number] [place] [address] 83717- 4257 Jan, [facility] [id number] [place] [address] 31820- 2159 Jan, Left groin pain R10.30 [facility] [id number] [place] [address] 65540- 2857 Dec, [facility] [id number] [place] [address] 44660- 7117 Dec, Pelvic pain R10.2 and Lumbosacral neuritis M54.17 [facility] [id number] [place] [address] 56034- 4361 Dec, [facility] [id number] [place] [address] 28286- 9645 Dec, Lymph node enlargement R59.9 [facility] [id number] [place] [address] 65348- 4076 Nov, Lymph node enlargement R59.9 [facility] [id number] [place] [address] 49943- 3362 Nov, [facility] [id number] [place] [address] 72791- 2773 Nov, Left groin pain R10.30 [facility] [id number] [place] [address] 16248- 9344 Nov, Varicose vein of leg I83.90 ; Essential hypertension I10 and Short lasting unilateral neuralgiform headache with conjunctival injection and tearing (SUNCT), not intractable G44.059 [facility] [id number] [place] [address] 70263 -0396 Jul, Post concussion syndrome F07.81 [facility] [id number] [place] [address] 30052- 7766 Jul, [facility] [id number] [place] [address] 68070- 9814 Oct, [facility] [id number] [place] [address] 78896- 2075 Oct, [facility] [id number] [place] [address] 85686- 5349 Aug, [facility] [id number] [place] [address] 24365- 9556 Aug, Obesity 278.00 [facility] [address], [place] [address]- 9846 Aug, [facility] [id number] [place] [address] 92324- 7816 Jul, Obesity 278.00 and Cervical spondylosis without myelopathy 721.0 [facility] [id number] [place] [address] 98610- 4496 March, [facility] [id number] [place] [address] 83556- 2135 Feb, Cervical spondylosis 721.0 [facility] [id number] [place] [address] 60969- 8325 Feb, [facility] [address], [place] [address]- 5965 Feb, [facility] [address] [place] [address]- [address] Jan, [facility] [address], [place] [address]- 5483 Jan, [facility] [address], [place] [address]- 1626 Jan, [facility] [address], [place] [address]- 4076 Jan, [facility] [address], [place] [address]- 9936 Jan, [facility] [id number] [place] [address]- 2546 Jan, [facility] [address], [place] [address]- 2096 Dec, [facility] [address], [place] [address]- 2546 Dec, [facility] [id number] [place] [address]- 9190 06 Dec, 2014 [facility] [address] [id number] [place] [address]- 3464 Dec, [facility] [place] [facility] [address] [id number] [place] [address]- 5264 Nov, [facility] [address] [id number] [place] [address]- 9578 Nov, [facility] [place] [facility] [address] [id number] [place] [address]- 3658 16 Nov, 2014 [facility] [address] [id number] [place] [address]- 0716 15 Nov, 2014 [facility] [place] [facility] [address] [id number] [place] [address]- 5202 Nov, [facility] [address] [id number] [place] [address]- 5301 Nov, [facility] [address] [id number] [place] [address]- 1371 Nov, [facility] [place] [facility] [address] [id number] [place] [address]- 3362 Nov, [facility] [address] [id number] [place] [address]- 7733 Oct, [facility] [place] [facility] [address] [id number] [place] [address]- 5721 Oct, [facility] [place] [facility] [address] [id number] [place] [address]- 5539 Sep, [facility] [place] [facility] [address] [id number] [place] [address]- 3448 Sep, [facility] [place] [facility] [address] [id number] [place] [address]- 5280 Sep, [facility] [place] [facility] [address] [id number] [place] [address]- 5844 Sep, [facility] [place] [facility] [address] [id number] [place] [address]- 6719 Jul, 2013 [facility] [place] [facility] [address] [id number] [place] [address]- 2821 Jul, [facility] [place] [facility] [address] [id number] [place] [address]- 6370 Jul, 2013 [facility] [place] [facility] [address] [id number] [place] [address]- 8424 Jul, 2013 [facility] [place] [facility] [address] [id number] [place] [address]- 5466 Jul, 2013 [facility] [place] [facility] [address] [id number] [place] [address]- 9774 Jul, 2013 [facility] [place] [facility] [address] [id number] [place] [address]- 5860 Jul, [facility] [place] [facility] [address] [id number] [place] [address]- 7802 Jul, [facility] [place] [facility] [address] [id number] [place] [address]- 9128 Jul, [facility] [place] [facility] [address] [id number] [place] [address]- 8339 Jul, [facility] [place] [facility] [address] [id number], [place] [address]- 5318 Jun, [facility] [place] [facility] [address] [id number], [place] [address]- 3426 Jun, [facility] [place] [facility] [address] [id number] [place] [address]- 9824 Jun, [facility] [place] [facility] [address] [id number] [place] [address]- 2990 Jun, [facility] [place] [facility] [address] [id number], [place] [address]- 7385 Jun, [facility] [place] [facility] [address] [id number], [place] [address]- 1310 Jun, [facility] [place] [facility] [address] [id number] [place] [address]- 6268 May, [facility] [place] [facility] [address] [id number] [place] [address]- 5588 May, [facility] [place] [facility] [address] [id number] [place] [address]- 2685 May, [facility] [place] [facility] [address] [id number] [place] [address]- 5206 May, [facility] [place] [facility] [address] [id number] [place] [address]- 3761 May, [facility] [place] [facility] [address] [id number] [place] [address]- 2858 May, [facility] [place] [facility] [address] [id number] [place] [address]- 5309 Apr, [facility] [place] [facility] [address] [id number] [place] [address]- 3747 Apr, [facility] [place] [facility] [address] [id number] [place] [address]- 1681 Apr, [facility] [place] [facility] [address] [facility] [id number] [place] [address]- 7320 Apr, [facility] [place] [facility] [address] [id number] [place] [address]- 3056 Apr, [facility] [place] [facility] [address] [id number], [place] [address]- 0290 Apr, [facility] [place] [facility] [address] [id number] [place] [address]- 4357 Apr, [facility] [place] [facility] [address] [id number] [place] [address]- 4097 Apr, [facility] [place] [facility] [address] [id number] [place] [address]- 7113 Apr, [facility] [place] [facility] [address] [id number] [place] [address]- 8648 Apr, [facility] [place] [facility] [address] [id number] [place] [address]- 5726 Apr, [facility] [place] [facility] [address] [id number] [place] [address]- 5926 Apr, [facility] [place] [facility] [address] [id number] [place] [address]- 0628 Apr, [facility] [place] [facility] [address] [id number] [place] [address]- 0356 March, [facility] [place] [facility] [address] [id number] [place] [address]- 0864 March, [facility] [place] [facility] [address] [id number] [place] [address]- 3994 March, [facility] [place] [facility] [address] [id number] [place] [address]- 8640 March, [facility] [place] [facility] [address] [id number] [place] [address]- 3869 March, [facility] [place] [facility] [address] [id number] [place] [address]- 0522 March, [facility] [place] [facility] [address] [id number] [place] [address]- 4113 Feb, [facility] [place] [facility] [address] [id number] [place] [address]- 0710 Feb, [facility] [place] [facility] [address] [id number] [place] [address]- 7652 Feb, [facility] [place] [facility] [address] [id number] [place] [address]- 8232 Feb, [facility] [place] [facility] [address] [id number] [place] [address]- 3127 Feb, [facility] [place] [facility] [address] [id number] [place] [address]- 0078 18 Feb, 2014 [facility] [place] [facility] [address] [id number] [place] [address]- 0346 15 Feb, 2014 [facility] [place] [facility] [address] [id number] [place] [address]- 3220 15 Feb, 2014 [facility] [place] [facility] [address] [id number] [place] [address]- 4688 Feb, [facility] [place] [facility] [address] [id number] [place] [address]- 9786 Feb, [facility] [place] [facility] [address] [id number] [place] [address]- 5029 Jan, [facility] [place] [facility] [address] [id number] [place] [address]- 6617 Jan, [facility] [place] [facility] [address] [id number] [place] [address]- 1358 Jan, [facility] [place] [facility] [address] [id number] [place] [address]- 2864 Jan, [facility] [place] [facility] [address] [id number] [place] [address]- 0874 Dec, [facility] [place] [facility] [address] [id number] [place] [address]- 6304 Dec, [facility] [place] [facility] [address] [id number] [place] [address]- 0705 Sep, [facility] [place] [facility] [address] [id number], [place] [address]- 7394 Sep, [facility] [place] [facility] [address] [id number] [place] [address]- 4775 Aug, [facility] [place] [facility] [address] [id number] [place] [address]- 7284 Aug, [facility] [place] [facility] [address] [id number] [place] [address]- 6934 Aug, [facility] [place] [facility] [address] [facility] [id number], [place] [address]- 6838 Aug, [facility] [id number], [place] [address]- 2982 Aug, [facility] [id number], [place] [address]- 5214 May, [facility] [address] [facility] [id number], [place] [address]- 2909 Jan, [facility] [id number], [place] [address]- 3118 Jan, [facility] [address] [facility] [id number][place] [address] 3072 Dec, IMMUNIZATIONS No Known Immunizations SOCIAL HISTORY Never Assessed REASON FOR VISIT Other PLAN OF CARE VITAL SIGNS MEDICATIONS Unknown [...]
--- OUTSIDE RECORDS SUMMARY | 2018-03-23 12:13 | XMS REPORT ---
Author Author FLORENCIA HINOJOSA [facility] Address [address] [place] [address] Care Team Providers Care Electromechanical Assembly Technician Name Role Phone FLORENCIA HINOJOSA Unavailable PROBLEMS Type Condition ICD9-CM Code NOD48-OC Code Onset Dates Condition Status SNOMED Code Problem Other chronic pain G89.29 Active 74973404 Problem Mental status change resolved Z86.59 Active 235742133 Problem Memory loss R41.3 Active 20912912 Problem Intractable migraine without aura and without status migrainosus G43.019 Active 401303317 ALLERGIES No Information SOCIAL HISTORY Never Assessed [...]
--- OUTSIDE RECORDS SUMMARY | 2018-03-23 12:13 | XMS REPORT ---
Author Author FLORENCIA HINOJOSA [facility] Address [address] [place] [address] Care Team Providers Care Geospatial Developer Name Role Phone FLORENCIA HINOJOSA Unavailable PROBLEMS Type Condition ICD9-CM Code QYV00-DU Code Onset Dates Condition Status SNOMED Code Problem Other chronic pain G89.29 Active 41092081 Problem Mental status change resolved Z86.59 Active 301394256 Problem Memory loss R41.3 Active 55990471 Problem Intractable migraine without aura and without status migrainosus G43.019 Active [id number] ALLERGIES Substance Reaction Event Type Date Status Prednisone Unknown Drug Allergy March, Active SOCIAL HISTORY Never Assessed PLAN OF CARE VITAL SIGNS Height 66 in 2017-04-02 Weight 164.3 lbs 2017-04-02 Temperature 98.1 degrees Fahrenheit 2017-04-02 Heart Rate 76 bpm 2017-04-02 Respiratory Rate 18 2017-04-02 BMI 26.52 kg/m2 2017-04-02 Blood pressure systolic 110 mmHg 2017-04-02 Blood pressure diastolic 78 mmHg 2017-04-02 MEDICATIONS Medication Instructions Dosage Frequency Start Date End Date Duration Status Estradiol 1 MG Orally Daily for Three Weeks, 1 Week off 1 tablet Active Diclofenac Sodium 75 MG Orally Twice a day 1 tablet with food or milk 12h Feb, Apr, 30 day(s) Active [place] 10-325 MG Orally every 6 hrs 1 tablet as needed 6h March, 28 days Active RESULTS Name Result Date Reference Range TSH 2017-04-02 TSH 1.520 0.450-4.500 CBC 2017-04-02 WBC 4.2 3.4-10.8 RBC 4.19 3.77-5.28 Hemoglobin 12.6 11.1-15.9 Hematocrit 38.5 34.0-46.6 MCV 92 79-97 MCH 30.1 26.6-33.0 MCHC 32.7 31.5-35.7 RDW 12.8 12.3-15.4 Platelets 199 150-379 Neutrophils 56 Lymphs 33 Monocytes 8 Eos 2 Basos 1 Neutrophils (Absolute) 2.4 1.4-7.0 Lymphs (Absolute) 1.4 0.7-3.1 Monocytes(Absolute) 0.3 0.1-0.9 Eos (Absolute) 0.1 0.0-0.4 Baso (Absolute) 0.0 0.0-0.2 Immature Granulocytes 0 Immature Grans (Abs) 0.0 0.0-0.1 CMP 2017-04-02 Glucose, Serum 86 65-99 BUN 10 6-20 Creatinine, Serum 1.29 0.57-1.00 eGFR If NonAfricn Am 53 >59 eGFR If Africn Am 61 >59 BUN/Creatinine Ratio 8 9-23 Sodium, Serum 141 134-144 Potassium, Serum 4.5 3.5-5.2 Chloride, Serum 102 96-106 Carbon Dioxide, Total 25 18-29 Calcium, Serum 9.4 8.7-10.2 Protein, Total, Serum 7.2 6.0-8.5 Albumin, Serum 4.5 3.5-5.5 Globulin, Total 2.7 1.5-4.5 A/G Ratio 1.7 1.2-2.2 Bilirubin, Total 1.1 0.0-1.2 Alkaline Phosphatase, S 44 39-117 AST (SGOT) 15 0-40 ALT (SGPT) 7 0-32 PROCEDURES Procedure Date Ordered Result Body Site ASSAY THYROID STIM HORMONE April 02, 2017 COMPREHEN METABOLIC PANEL April 02, 2017 COMPLETE CBC W/AUTO DIFF WBC April 02, 2017 VENIPUNCT, ROUTINE* April 02, 2017 IMMUNIZATIONS No Known Immunizations MEDICAL (GENERAL) HISTORY Type Description Date Medical History Asthma Medical History Hives since 2000 Surgical History spinal fusion 2014 Surgical History Tonsillectomy Surgical History Appendectomy Surgical History section Surgical History epidural anesthesia/injection Surgical History Hemorrhoidecomy with umu Surgical History colonoscopy
--- OUTSIDE RECORDS SUMMARY | 2018-03-23 12:13 | XMS REPORT ---
Author Author FLORENCIA HINOJOSA Organization [facility] Address [address] [place] [address] Care Team Providers Care Bottom Sander Name Role Phone FLORENCIA HINOJOSA Unavailable PROBLEMS Type Condition ICD9-CM Code IJL93-SN Code Onset Dates Condition Status SNOMED Code Problem Memory loss R41.3 Active 43112016 Problem Intractable migraine without aura and without status migrainosus G43.019 Active 531118197 ALLERGIES Substance Reaction Event Type Date Status Prednisone Unknown Drug Allergy Nov, Active SOCIAL HISTORY No smoking Hx information available PLAN OF CARE Activity Details Follow Up 4 Weeks Reason:blood pressure/headache VITAL SIGNS Height 66 in 2016-12-04 Weight 159.8 lbs 2016-12-04 Temperature 98.2 degrees Fahrenheit 2016-12-04 Heart Rate 76 bpm 2016-12-04 Respiratory Rate 18 2016-12-04 BMI 25.79 kg/m2 2016-12-04 Blood pressure systolic 140 mmHg 2016-12-04 Blood pressure diastolic 78 mmHg 2016-12-04 MEDICATIONS Medication Instructions Dosage Frequency Start Date End Date Duration Status Ketorolac Tromethamine 10 MG Orally every 6 hrs 1 tablet with food or milk as needed 6h Nov, Nov, 5 day(s) Active Propranolol HCl 40 MG Orally Twice a day 1 tablet 12h Nov, 30 day(s) Active RESULTS Name Result Date Reference Range PTT 2016-12-04 aPTT 29 24-33 D-DIMER 2016-12-04 D-Dimer 0.29 0.00-0.49 PT/INR 2016-12-04 INR 1.0 0.8-1.2 Prothrombin Time 10.4 9.1-12.0 PROCEDURES Procedure Date Ordered Related Diagnosis Body Site LAB NOT BILLED BY [facility] Dec 04, 2016 Office Visit, Est Pt., Level 3 Dec 04, 2016 VENIPUNCT, ROUTINE* Dec 04, 2016 IMMUNIZATIONS No Known Immunizations
--- OUTSIDE RECORDS SUMMARY | 2018-03-23 12:13 | XMS REPORT ---
Author Author DUNIA MAJANO [facility] Address [address] [place] [address] Care Team Providers Care Multi Punch Operator Name Role Phone DUNIA MAJANO Unavailable PROBLEMS Type Condition ICD9-CM Code CPE62-KH Code Onset Dates Condition Status SNOMED Code Problem Other chronic pain G89.29 Active 76173419 Problem Mental status change resolved Z86.59 Active 827540711 Problem Memory loss R41.3 Active 00692464 Problem Intractable migraine without aura and without status migrainosus G43.019 Active 881464038 ALLERGIES No Information SOCIAL HISTORY Never Assessed PLAN OF CARE VITAL SIGNS MEDICATIONS Medication Instructions Dosage Frequency Start Date End Date Duration Status Kirkwood 7.5-325 MG Orally every 6 hrs 1 tablet as needed 6h Jan, 28 days Active RESULTS No Results PROCEDURES No Known procedures IMMUNIZATIONS No Known Immunizations MEDICAL (GENERAL) HISTORY Type Description Date Medical History Asthma Medical History Hives since 2000 Surgical History spinal fusion 2014 Surgical History Tonsillectomy Surgical History Appendectomy Surgical History section Surgical History epidural anesthesia/injection Surgical History Hemorrhoidecomy with umu Surgical History colonoscopy
--- OUTSIDE RECORDS SUMMARY | 2018-03-23 12:14 | XMS REPORT ---
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 Name Role Phone FLORENCIA HINOJOSA Unavailable PROBLEMS Type Condition ICD9-CM Code HQP88-YP Code Onset Dates Condition Status SNOMED Code Problem Arthritis M19.90 Active 3739694 Problem Chronic fatigue R53.82 Active 51409302 Problem Intractable migraine without aura and without status migrainosus G43.019 Active 010933392 Problem Memory loss R41.3 Active 48051668 Problem Other chronic pain G89.29 Active 69226525 Problem Mental status change resolved Z86.59 Active 557016869 ALLERGIES No Information ENCOUNTERS Encounter Location Date Diagnosis [place] [id number] [place] [address] 63684- 9278 Jan, Intractable migraine without aura and without status migrainosus G43.019 [place] [address] [address]- 6912 Dec, [place] [id number] [place] [address] 68804- 5973 Dec, Intractable migraine without aura and without status migrainosus G43.019 [place] [id number] [place] [address] 35948- 9597 Nov, [place] [id number] [place] [address] 31614- 4187 Nov, Chronic fatigue R53.82 and Family history of thyroid disease Z83.49 [place] [address] [address]- 5978 Nov, Arthritis M19.90 ; Chronic fatigue R53.82 ; Family history of thyroid disease Z83.49 ; Grade IV hemorrhoids K64.3 and Other chronic pain G89.29 [facility] [address] [facility] [id number] [place] [address] 2546 Nov, Intractable migraine without aura and without status migrainosus G43.019 [facility] [address] [facility] [id number] [place] [address] 2546 Oct, [facility] [address] [facility] [id number] [place] [address] 79323 2546 Oct, Intractable migraine without aura and without status migrainosus G43.019 [facility] [address] [facility] [id number] [place] [address] 2546 Oct, [facility] [id number] [place] [address] 94684 2546 Oct, [facility] [id number] [place] [address] 50225 2546 Sep, Tremors of nervous system R25.1 [facility] [id number] [place] [address] 00817 2546 Sep, [facility] [id number] [place] [address] 02781 2546 Sep, Intractable migraine without aura and without status migrainosus G43.019 [facility] [id number] [address] 2546 Sep, [facility] [id number] [place] [address] 12230 2546 Sep, [facility] [address] [facility] [id number] [place] [address] 2546 Sep, Acute medial meniscus tear of right knee, initial encounter S83.241A and Acute lateral meniscus tear of left knee, initial encounter S83.282A [facility] [id number] [address] 2546 Aug, Intractable migraine without aura and without status migrainosus G43.019 [facility] [id number] [address]- 0529 Aug, [facility] [id number] [place] [address] 03982- 0447 Aug, [facility] [id number] [place] [address] 39431- 6301 Jul, [facility] [id number] [place] [address] 09413- 4536 Jul, [facility] [id number] [place] [address] 04874- 9957 Jul, Intractable migraine without aura and without status migrainosus G43.019 ; Memory loss R41.3 ; Mental status change resolved Z86.59 ; Other chronic pain G89.29 and Pain in right knee M25.561 [facility] [id number] [place] [address] 68867- 4178 Jul, [facility] [id number] [place] [address] 19308- 7444 Jun, Tremors of nervous system R25.1 and Pelvic pain R10.2 [facility] [id number] [place] [address] 70549- 5024 Jun, [facility] [id number] [place] [address] 93651- 1979 Jun, [facility] [id number] [place] [address] 22143- 2640 Jun, [facility] [id number] [place] [address] 53792- 5099 May, [facility] [id number] [place] [address] 76751- 2603 May, [facility] [id number] [place] [address] 91787- 9204 May, Kidney pain N23 [facility] [id number] [place] [address] 03745- 8944 May, Pelvic pain R10.2 [facility] [id number] [place] [address] 93456 -8699 May, Wasp sting, accidental or unintentional, initial encounter T63.461A and Allergic contact dermatitis due to other agents L23.89 [facility] [id number] [place] [address] 12612- 9213 May, [facility] [id number] [place] [address] 32944- 1891 May, Pelvic pain R10.2 [facility] [id number] [place] [address] 69075- 8305 May, [facility] [id number] [place] [address] 39013- 1925 Apr, Tremors of nervous system R25.1 ; Blood in stool, gabby K92.1 ; 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 ; Memory loss R41.3 and Intractable migraine without aura and without status migrainosus G43.019 [facility] [id number] [place] [address] 46650- 6683 Apr, Blood in stool, gabby K92.1 [facility] [id number] [place] [address] 67734- 3581 Apr, Tremors of nervous system R25.1 ; 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 ; Memory loss R41.3 and Intractable migraine without aura and without status migrainosus G43.019 [facility] [address] [address]- 7036 Apr, [facility] [id number] [place] [address] 25109- 6909 Apr, Tremor R25.1 [facility] [id number] [place] [address] 28495- 0275 March, [facility] [id number] [place] [address] 22294- 8432 March, Cyst of right ovary N83.201 [facility] [id number] [place] [address] 39863- 4107 March, Blood in stool, gabby K92.1 and Other fatigue R53.83 [facility] [id number] [place] [address] 72333 2546 March, Cyst of right ovary N83.201 [facility] [id number] [place] [address] 86132 2541 Feb, [facility] [id number] [place] [address] 34069- 7264 Feb, [facility] [address] 70745- 0856 Feb, Cyst of right ovary N83.201 and Right lower quadrant abdominal pain R10.31 [place] [id number] [place] [address] 95156- 9556 Jan, Pelvic pain R10.2 [facility] [id number] [place] [address] 18548- 6968 Jan, [facility] [address] 19668- 3142 Jan, [facility] [id number] [place] [address] 14224- 6073 Jan, Left groin pain R10.30 [facility] [id number] [place] [address] 44827- 2022 Dec, [facility] [id number] [place] [address] 67766- 7026 Dec, Pelvic pain R10.2 and Lumbosacral neuritis M54.17 [facility] [id number] [place] [address] 85655- 5606 Dec, [facility] [id number] [place] [address] 57409- 1987 Dec, Lymph node enlargement R59.9 [facility] [id number] [place] [address] 20293- 7047 Nov, Lymph node enlargement R59.9 [facility] [id number] [place] [address] 64796- 4971 Nov, [facility] [id number] [place] [address] 98537- 3648 Nov, Left groin pain R10.30 [facility] [id number] [place] [address] 45780- 9069 Nov, Varicose vein of leg I83.90 ; Essential hypertension I10 and Short lasting unilateral neuralgiform headache with conjunctival injection and tearing (SUNCT), not intractable G44.059 [facility] [id number] [place] [address] 86988 -2085 07 Jul, 2016 Post concussion syndrome F07.81 [facility] [address] 16618- 8021 Jul, [facility] [id number] [place] [address] 32346- 1397 Oct, [facility] [id number] [place] [address] 89155- 2512 Oct, [facility] [id number] [place] [address] 98141- 1500 Aug, [facility] [id number] [place] [address] 27985- 4317 Aug, Obesity 278.00 [facility] [id number] [place] [address] 87442- 2184 Aug, [facility] [address] 23702- 6903 Jul, Obesity 278.00 and Cervical spondylosis without myelopathy 721.0 [facility] [id number] [place] [address] 19198- 6700 March, [facility] [address] [facility] [id number] [place] [address]- 1819 Feb, Cervical spondylosis 721.0 [facility] [place] [facility] [address] [facility] [id number] [place] [address]- 8893 14 Feb, 2015 [facility] [place] [facility] [address] [facility] [id number] [place] [address]- 6355 Feb, [facility] [place] [facility] [address] [facility] [id number] [place] [address]- 3097 Jan, [facility] [place] [facility] [address] [facility] [id number] [place] [address]- 2788 Jan, [facility] [place] [facility] [address] [facility] [id number] [place] [address]- 9528 Jan, [facility] [place] [facility] [id number] [address]- 4000 Jan, [facility] [place] [facility] [address] [facility] [id number] [place] [address]- 0757 Jan, [facility] [place] [facility] [id number] [address]- 0335 Jan, [facility] [place] [facility] [address] [facility] [id number] [place] [address]- 3009 Dec, [facility] [place] [facility] [id number] [address]- 9714 Dec, [facility] [place] [facility] [address] [facility] [id number] [place] [address]- 7948 Dec, [facility] [place] [facility] [address] [facility] [id number] [place] [address]- 8377 Dec, [facility] [place] [facility] [address] [facility] [id number] [place] [address]- 1654 Nov, [facility] [place] [facility] [id number] [place] [address]- 2939 Nov, [facility] [place] [facility] [address] [id number] [place] [address]- 0255 16 Nov, 2014 [facility] [place] [facility] [address] [id number] [place] [address]- 3651 15 Nov, 2014 [facility] [place] [facility] [address] [id number] [place] [address]- 5833 14 Nov, 2014 [facility] [place] [facility] [address] [id number] [place] [address]- 0533 14 Nov, 2014 [facility] [place] [facility] [address] [id number] [place] [address]- 2561 Nov, [facility] [place] [facility] [address] [id number] [place] [address]- 7367 Nov, [facility] [place] [facility] [address] [id number] [place] [address]- 3367 Oct, [facility] [place] [facility] [address] [id number] [place] [address]- 2149 Oct, [facility] [place] [facility] [address] [id number] [place] [address]- 2621 Sep, [facility] [place] [facility] [address] [id number] [place] [address]- 4897 Sep, [facility] [place] [facility] [address] [id number] [place] [address]- 6349 Sep, [facility] [place] [facility] [address] [id number] [place] [address]- 2594 Sep, [facility] [place] [facility] [address] [id number] [place] [address]- 6787 29 Jul, 2014 [facility] [place] [facility] [address] [id number] [place] [address]- 2888 29 Jul, 2014 [facility] [place] [facility] [address] [id number] [place] [address]- 8814 Jul, [facility] [place] [facility] [address] [id number] [place] [address]- 7054 Jul, [facility] [place] [facility] [address] [id number] [place] [address]- 5544 Jul, [facility] [place] [facility] [address] [id number] [place] [address]- 3921 Jul, [facility] [place] [facility] [address] [id number] [place] [address]- 6176 Jul, [facility] [place] [facility] [address] [id number] [place] [address]- 8475 Jul, [facility] [place] [facility] [address] [id number] [place] [address]- 2730 Jul, [facility] [place] [facility] [address] [id number] [place] [address]- 0841 Jul, [facility] [place] [facility] [address] [id number] [place] [address]- 1523 Jun, [facility] [place] [facility] [address] [id number] [place] [address]- 8167 Jun, [facility] [place] [facility] [address] [id number] [place] [address]- 0899 Jun, [facility] [place] [facility] [address] [id number] [place] [address]- 1813 Jun, [facility] [place] [facility] [address] [id number] [place] [address]- 9737 Jun, [facility] [place] [facility] [address] [id number] [place] [address]- 0386 Jun, [facility] [place] [facility] [address] [id number] [place] [address]- 6643 May, [facility] [place] [facility] [address] [id number] [place] [address]- 3148 May, [facility] [place] [facility] [address] [id number] [place] [address]- 0908 May, [facility] [place] [facility] [address] [id number] [place] [address]- 7795 11 May, 2014 [facility] [place] [facility] [address] [id number] [place] [address]- 6244 07 May, 2014 [facility] [place] [facility] [address] [id number] [place] [address]- 4336 07 May, 2014 [facility] [place] [facility] [address] [id number] [place] [address]- 8094 24 Apr, 2014 [facility] [place] [facility] [address] [id number] [place] [address]- 3036 Apr, [facility] [place] [facility] [address] [id number] [place] [address]- 7513 Apr, [facility] [place] [facility] [address] [id number] [place] [address]- 8177 Apr, [facility] [place] [facility] [address] [id number] [place] [address]- 1854 Apr, [facility] [place] [facility] [address] [id number] [place] [address]- 4195 Apr, [facility] [place] [facility] [address] [id number] [place] [address]- 0975 Apr, [facility] [place] [facility] [address] [id number] [place] [address]- 7814 Apr, [facility] [place] [facility] [address] [id number] [place] [address]- 0772 Apr, [facility] [place] [facility] [address] [id number] [place] [address]- 6925 Apr, [facility] [place] [facility] [address] [id number] [place] [address]- 0180 Apr, [facility] [place] [facility] [address] [id number] [place] [address]- 4539 Apr, [facility] [place] [facility] [address] [id number] [place] [address]- 0620 Apr, [facility] [place] [facility] [address] [id number] [place] [address]- 4474 March, [facility] [place] [facility] [address] [id number] [place] [address]- 7771 March, [facility] [place] [facility] [address] [id number] [place] [address]- 5242 March, [facility] [place] [facility] [address] [id number] [place] [address]- 3129 March, [facility] [place] [facility] [address] [id number] [place] [address]- 3462 March, [facility] [place] [facility] [address] [id number] [place] [address]- 8471 March, [facility] [place] [facility] [address] [id number] [place] [address]- 1943 Feb, [facility] [place] [facility] [address] [id number] [place] [address]- 0918 Feb, [facility] [place] [facility] [address] [id number] [place] [address]- 3630 Feb, [facility] [place] [facility] [address] [id number] [place] [address]- 8277 Feb, [facility] [place] [facility] [address] [id number] [place] [address]- 2474 Feb, [facility] [place] [facility] [address] [id number] [place] [address]- 4120 Feb, [facility] [place] [facility] [address] [id number] [place] [address]- 2083 Feb, [facility] [place] [facility] [address] [id number] [place] [address]- 5657 15 Feb, 2014 [facility] [place] [facility] [address] [id number] [place] [address]- 0886 Feb, [facility] [place] [facility] [address] [id number] [place] [address]- 6936 Feb, [facility] [place] [facility] [address] [id number] [place] [address]- 4373 Jan, [facility] [place] [facility] [address] [id number] [place] 9530 Jan, [facility] [place] [facility] [address] [id number] [place] [address]- 9260 Jan, [facility] [place] [facility] [address] [id number] [place] [address]- 2890 Jan, [facility] [place] [facility] [address] [id number] [place] [address]- 9564 Dec, [facility] [place] [facility] [address] [id number] [place] [address]- 2861 Dec, [facility] [place] [facility] [address] [id number] [place] [address] Sep, [facility] [place] [facility] [address] [id number] [place] [address] Sep, [facility] [place] [facility] [address] [id number] [place] [address] Aug, [facility] [place] [facility] [address] [id number] [place] [address] Aug, [facility] [place] [facility] [address] [id number] [place] [address] Aug, [facility] [place] [facility] [address] [id number] [place] [address] Aug, [facility] [place] [facility] [address] [id number] [place] [address] Aug, [facility] [place] [facility] [address] [id number] [place] May, [facility] [place] [facility] [address] [id number] [place] [address] Jan, [facility] [place] [facility] [address] [facility] [id number] [place] [address] Jan, [facility] [address] [facility] [id number] [place] [address] Dec, IMMUNIZATIONS No Known Immunizations SOCIAL HISTORY Never Assessed REASON FOR VISIT Lab (walk-in) PLAN OF CARE VITAL SIGNS MEDICATIONS Unknown Medications RESULTS Name Result Date Reference Range VITAMIN B12 2017-05-22 Vitamin B12 328 211-946 CBC 2017-05-22 WBC 6.2 3.4-10.8 RBC 3.81 3.77-5.28 Hemoglobin 11.7 11.1-15.9 Hematocrit 35.5 34.0-46.6 MCV 93 79-97 MCH 30.7 26.6-33.0 MCHC 33.0 31.5-35.7 RDW 12.8 12.3-15.4 Platelets 205 150-379 Neutrophils 68 Lymphs 25 Monocytes 4 Eos 3 Basos 0 Neutrophils (Absolute) 4.2 1.4-7.0 Lymphs (Absolute) 1.6 0.7-3.1 Monocytes(Absolute) 0.3 0.1-0.9 Eos (Absolute) 0.2 0.0-0.4 Baso (Absolute) 0.0 0.0-0.2 Immature Granulocytes 0 Immature Grans (Abs) 0.0 0.0-0.1 VITAMIN D, 25-H 2017-05-22 Vitamin D, 25-Hydroxy 42.5 30.0-100.0 PROCEDURES Procedure Date Ordered Result Body Site LAB NOT BILLED BY [facility] May 22, 2017 VENIPUNCT, ROUTINE* May 22, 2017 INSTRUCTIONS MEDICATIONS ADMINISTERED No Known Medications MEDICAL (GENERAL) HISTORY Type Description Date Medical History Asthma Medical History Hives since 2000 Surgical History spinal fusion 2014 Surgical History Tonsillectomy Surgical History Appendectomy Surgical History section Surgical History epidural anesthesia/injection Surgical History Hemorrhoidecomy with umu Surgical History colonoscopy
[2018-03-23] MEDS ORDERED: NS IV 1000 ML 1,000 ML IV ONE (12:15)
[2018-03-23] MEDS ORDERED: ONDANSETRON 4 MG/2 ML (SDV) Z0FRAN IVP ONE ×2 (12:15→16:00)
--- OUTSIDE RECORDS SUMMARY | 2018-03-23 12:15 | XMS REPORT | Continuity of Care Document ---
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 CAUSE OF STRIKE BY THROWN, PROJECTED 04/25/2015 BRYAN ZALDIVAR Ot Y92.[address] IN OT NON-INSTITUTIONAL RESI 04/25/2015 BRYAN ZALDIVAR Ot Y93.H9 ACTVTY,OTH W EXTER PROPERTY LAND MAIN 04/25/2015 BRYAN ZALDIVAR Ot Y99.8 OTHER EXTERNAL CAUSE STATUS 05/07/2015 Ot 722.4 06/11/2015 Ot 722.4 06/11/2015 Ot 722.4 06/11/2015 Ot 654.23 06/11/2015 Ot V72.63 06/11/2015 Ot V74.8 06/11/2015 Ot 729.5 06/11/2015 Ot 722.91 06/11/2015 GEORGIE GRULLON, MAYELIN Kaur Ot V72.84 06/11/2015 Ot 722.4 11/29/2015 Ot 722.4 11/29/2015 GEORGIE GRULLON, MAYELIN Kaur Ot 455.6 11/29/2015 GEORGIE GRULLON, MAYELIN Kaur Ot V72.84 11/29/2015 GEORGIE GRULLON, MAYELIN Kaur Ot 455.8 11/29/2015 GEORGIE GRULLON, MAYELIN Kaur Ot V72.84 01/02/2016 GUERLINE GRULLON, BERNADETTE Hoover Ot R94.4 07/21/2016 Ot 722.4 CERVICAL DISC DEGEN 07/21/2016 GEORGIE GRULLON, MAYELIN Kaur Ot 455.6 HEMORRHOIDS NOS 07/21/2016 GEORGIE GRULLON, MAYELIN Kaur Ot V72.84 EXAM PRE-OPERATIVE NOS 07/21/2016 GEORGIE GRULLON, MAYELIN Kaur Ot 455.8 HEMRRHOID NOS W COMP NEC 07/21/2016 GEORGIE GRULLON, MAYELIN Kaur Ot V72.84 EXAM PRE-OPERATIVE NOS 07/21/2016 GUERLINE GRULLON, BERNADETTE Hoover Ot R94.4 ABNORMAL RESULTS OF KIDNEY FUNCTION STUD 07/21/2016 BRYAN ZALDIVAR Ot S00.83XA CONTUSION OF OTHER PART OF HEAD, INITIAL 07/21/2016 BRYAN ZALDIVAR Ot S06.0X0A CONCUSSION WITHOUT LOSS OF CONSCIOUSNESS 07/21/2016 BRYAN ZALDIVAR Ot S90.02XA CONTUSION OF LEFT ANKLE, INITIAL ENCOUNT 07/21/2016 BRYAN ZALDIVAR Ot S90.32XA CONTUSION OF LEFT FOOT, INITIAL ENCOUNTE 07/21/2016 BRYAN ZALDIVAR Ot S99.922A UNSPECIFIED INJURY OF LEFT FOOT, INITIAL 07/21/2016 BRYAN ZALDIVAR Ot W22.8XXA STRIKING AGAINST OR STRUCK BY OTHER OBJE 07/21/2016 BRYAN ZALDIVAR Ot Y99.8 OTHER EXTERNAL CAUSE STATUS 07/22/2016 BRYAN ZALDIVAR Ot S00.83XA CONTUSION OF OTHER PART OF HEAD, INITIAL 07/22/2016 BRYAN ZALDIVAR Ot S06.0X0A CONCUSSION WITHOUT LOSS OF CONSCIOUSNESS 07/22/2016 BRYAN ZALDIVAR Ot S90.02XA CONTUSION OF LEFT ANKLE, INITIAL ENCOUNT 07/22/2016 BRYAN ZALDIVAR Ot S90.32XA CONTUSION OF LEFT FOOT, INITIAL ENCOUNTE 07/22/2016 BRYAN ZALDIVAR Ot S99.922A UNSPECIFIED INJURY OF LEFT FOOT, INITIAL 07/22/2016 BRYAN ZALDIVAR Ot W22.8XXA STRIKING AGAINST OR STRUCK BY OTHER OBJE 07/22/2016 BRYAN ZALDIVAR Ot Y99.8 OTHER EXTERNAL CAUSE STATUS 07/24/2016 BRYAN ZALDIVAR L Ot S00.83XA CONTUSION OF OTHER PART OF HEAD, INITIAL 07/24/2016 BRYAN ZALDIVAR Ot S06.0X0A CONCUSSION WITHOUT LOSS OF CONSCIOUSNESS 07/24/2016 BRYAN ZALDIVAR Ot S90.02XA CONTUSION OF LEFT ANKLE, INITIAL ENCOUNT 07/24/2016 BRYAN ZALDIVAR Ot S90.32XA CONTUSION OF LEFT FOOT, INITIAL ENCOUNTE 07/24/2016 BRYAN ZALDIVAR Ot S99.922A UNSPECIFIED INJURY OF LEFT FOOT, INITIAL 07/24/2016 BRYAN ZALDIVAR Ot W22.8XXA STRIKING AGAINST OR STRUCK BY OTHER OBJE 07/24/2016 BRYAN ZALDIVAR Ot Y99.8 OTHER EXTERNAL CAUSE STATUS 12/15/2016 Ot 722.4 CERVICAL DISC DEGEN 12/15/2016 GEORGIE GRULLON, MAYELIN Kaur Ot 455.6 HEMORRHOIDS NOS 12/15/2016 GEORGIE GRULLON, MAYELIN Kaur Ot V72.84 EXAM PRE-OPERATIVE NOS 12/15/2016 GEORGIE GRULLON, MAYELIN Kaur Ot 455.8 HEMRRHOID NOS W COMP NEC 12/15/2016 MAYELIN JACQUES MD Ot V72.84 EXAM PRE-OPERATIVE NOS 12/15/2016 GUERLINE GRULLON, BERNADETTE V Ot R94.4 ABNORMAL RESULTS OF KIDNEY FUNCTION STUD 01/14/2017 FLORENCIA HINOJOSAP Ot R10.32 LEFT LOWER QUADRANT PAIN 01/22/2017 Ot 722.4 CERVICAL DISC DEGEN 01/22/2017 GEORGIE GRULLON, MAYELIN Kaur Ot 455.6 HEMORRHOIDS NOS 01/22/2017 GEORGIE GRULLON, MAYELIN Kaur Ot V72.84 EXAM PRE-OPERATIVE NOS 01/22/2017 GEORGIE GRULLON, MAYELIN Kaur Ot 455.8 HEMRRHOID NOS W COMP NEC 01/22/2017 GEORGIE GRULLON, MAYELIN Kaur Ot V72.84 EXAM PRE-OPERATIVE NOS 01/22/2017 GUERLINE GRULLON, BERNADETTE V Ot R94.4 ABNORMAL RESULTS OF KIDNEY FUNCTION STUD 01/22/2017 FLORENCIA HINOJOSA CONSTRUCTION SCHEDULER Ot R10.32 LEFT LOWER QUADRANT PAIN 01/22/2017 FLORENCIA HINOJOSA Ot M54.17 RADICULOPATHY, LUMBOSACRAL REGION 01/22/2017 FLORENCIA HINOJOSA CONSTRUCTION SCHEDULER Ot R10.2 PELVIC AND PERINEAL PAIN 01/23/2017 FLORENCIA HINOJOSA Ot M54.17 RADICULOPATHY, LUMBOSACRAL REGION 01/23/2017 FLORENCIA HINOJOSA Ot R10.2 PELVIC AND PERINEAL PAIN 01/23/2017 FLORENCIA HINOJOSA CONSTRUCTION SCHEDULER Ot M54.17 RADICULOPATHY, LUMBOSACRAL REGION 01/23/2017 FLORENCIA HINOJOSA CONSTRUCTION SCHEDULER Ot R10.2 PELVIC AND PERINEAL PAIN 02/13/2017 FLORENCIA HINOJOSA CONSTRUCTION SCHEDULER Ot M54.17 RADICULOPATHY, LUMBOSACRAL REGION 02/13/2017 FLORENCIA HINOJOSA CONSTRUCTION SCHEDULER Ot R10.2 PELVIC AND PERINEAL PAIN 03/03/2017 MAYELIN JACQUES MD Ot K62.5 HEMORRHAGE OF ANUS AND RECTUM 03/03/2017 MAYELIN JACQUES MD Ot Z01.818 ENCOUNTER FOR OTHER PREPROCEDURAL EXAMIN 03/03/2017 MAYELIN JACQUES MD Ot Z83.71 FAMILY HISTORY OF COLONIC POLYPS 03/06/2017 Ot 722.4 CERVICAL DISC DEGEN 03/06/2017 MAYELIN JACQUES MD Ot 455.6 HEMORRHOIDS NOS 03/06/2017 MAYELIN JACQUES MD Ot V72.84 EXAM PRE-OPERATIVE NOS 03/06/2017 MAYELIN JACQUES MD Ot 455.8 HEMRRHOID NOS W COMP NEC 03/06/2017 MAYELIN JACQUES MD Ot V72.84 EXAM PRE-OPERATIVE NOS 03/06/2017 GUERLINE GRULLON, BERNADETTE Hoover Ot R94.4 ABNORMAL RESULTS OF KIDNEY FUNCTION STUD 03/06/2017 FLORENCIA HINOJOSA CONSTRUCTION SCHEDULER Ot R10.32 LEFT LOWER QUADRANT PAIN 03/06/2017 FLORENCIA HINOJOSA CONSTRUCTION SCHEDULER Ot M54.17 RADICULOPATHY, LUMBOSACRAL REGION 03/06/2017 FLORENCIA HINOJOSA CONSTRUCTION SCHEDULER Ot R10.2 PELVIC AND PERINEAL PAIN 03/06/2017 MAYELIN JACQUES MD Ot K62.5 HEMORRHAGE OF ANUS AND RECTUM 03/06/2017 MAYELIN JACQUES MD Ot K64.2 THIRD DEGREE HEMORRHOIDS 03/06/2017 MAYELIN JACQUES MD Ot Z83.71 FAMILY HISTORY OF COLONIC POLYPS 03/10/2017 MAYELIN JACQUES MD Ot K62.5 HEMORRHAGE OF ANUS AND RECTUM 03/10/2017 MAYELIN JACQUES MD Ot K64.2 THIRD DEGREE HEMORRHOIDS 03/10/2017 MAYELIN JACQUES MD Ot Z83.71 FAMILY HISTORY OF COLONIC POLYPS 03/11/2017 MAYELIN JACQUES MD Ot K62.5 HEMORRHAGE OF ANUS AND RECTUM 03/11/2017 MAYELIN JACQUES MD Ot K64.2 THIRD DEGREE HEMORRHOIDS 03/11/2017 MAYELIN JACQUES MD Ot Z83.71 FAMILY HISTORY OF COLONIC POLYPS 03/11/2017 MAYELIN JACQUES MD Ot K62.5 HEMORRHAGE OF ANUS AND RECTUM 03/11/2017 MAYELIN JACQUES MD Ot K64.2 THIRD DEGREE HEMORRHOIDS 03/11/2017 MAYELIN JACQUES MD Ot Z83.71 FAMILY HISTORY OF COLONIC POLYPS 03/24/2017 MAYELIN JACQUES MD Ot K62.5 HEMORRHAGE OF ANUS AND RECTUM 03/24/2017 MAYELIN JACQUES MD Ot K64.2 THIRD DEGREE HEMORRHOIDS 03/24/2017 MAYELIN JACQUES MD Ot Z83.71 FAMILY HISTORY OF COLONIC POLYPS 04/24/2017 MAYELIN JACQUES MD Ot K21.9 GASTRO-ESOPHAGEAL REFLUX DISEASE WITHOUT 04/24/2017 MAYELIN JACQUES MD Ot K92.1 MELENA 04/24/2017 MAYELIN JACQUES MD Ot Z01.818 ENCOUNTER FOR OTHER PREPROCEDURAL EXAMIN 04/24/2017 MAYELIN JACQUES MD Ot K21.9 GASTRO-ESOPHAGEAL REFLUX DISEASE WITHOUT 04/24/2017 MAYELIN JACQUES MD Ot K92.1 MELENA 04/24/2017 MAYELIN JACQUES MD Ot Z01.818 ENCOUNTER FOR OTHER PREPROCEDURAL EXAMIN 04/24/2017 MAYELIN JACQUES MD Ot K21.9 GASTRO-ESOPHAGEAL REFLUX DISEASE WITHOUT 04/24/2017 MAYELIN JACQUES MD Ot K92.1 MELENA 04/24/2017 MAYELIN JACQUES MD Ot Z01.818 ENCOUNTER FOR OTHER PREPROCEDURAL EXAMIN 04/25/2017 MAYELIN JACQUES MD Ot K62.5 HEMORRHAGE OF ANUS AND RECTUM 04/25/2017 MAYELIN JACQUES MD Ot K64.2 THIRD DEGREE HEMORRHOIDS 04/25/2017 MAYELIN JACQUES MD Ot Z83.71 FAMILY HISTORY OF COLONIC POLYPS 04/27/2017 MAYELIN JACQUES MD Ot K21.9 GASTRO-ESOPHAGEAL REFLUX DISEASE WITHOUT 04/27/2017 JACQUES MD, MAYELIN M Ot K25.9 GASTRIC ULCER, UNSP ACUTE OR CHRONIC, 04/27/2017 GEORGIE GRULLON, MAYELIN Kaur Ot K44.9 DIAPHRAGMATIC HERNIA WITHOUT OBSTRUCTION 09/25/2017 Ot 722.4 CERVICAL DISC DEGEN 09/25/2017 GEORGIE GRULLON, MAYELIN Kaur Ot 455.6 HEMORRHOIDS NOS 09/25/2017 GEORGIE GRULLON, MAYELIN Kuar Ot V72.84 EXAM PRE-OPERATIVE NOS 09/25/2017 GEORGIE GRULLON, MAYELIN Kaur Ot 455.8 HEMRRHOID NOS W COMP NEC 09/25/2017 GEORGIE GRULLON, MAYELIN Kaur Ot V72.84 EXAM PRE-OPERATIVE NOS 09/25/2017 GUERLINE GRULLON, BERNADETTE V Ot R94.4 ABNORMAL RESULTS OF KIDNEY FUNCTION STUD 09/25/2017 FLORENCIA HINOJOSA CONSTRUCTION SCHEDULER Ot R10.32 LEFT LOWER QUADRANT PAIN 09/25/2017 FLORENCIA HINOJOSA CONSTRUCTION SCHEDULER Ot M54.17 RADICULOPATHY, LUMBOSACRAL REGION 09/25/2017 FLORENCIA HINOJOSA CONSTRUCTION SCHEDULER Ot R10.2 PELVIC AND PERINEAL PAIN 11/06/2017 MYCHAL GARCIA CONSTRUCTION SCHEDULER Ot M17.12 UNILATERAL PRIMARY OSTEOARTHRITIS, LEFT 11/06/2017 MYCHAL GARCIAP Ot M85.869 OTH DISRD OF BONE DENSITY AND STRUCTURE, 11/19/2017 FLORENCIA HINOJOSA CONSTRUCTION SCHEDULER Ot 478.19 OTHER DISEASE OF NASAL CAVITY AND SINUSE 11/19/2017 FLORENCIA HINOJOSA CONSTRUCTION SCHEDULER Ot 780.93 MEMORY LOSS 11/19/2017 MYCHAL GARCIA CONSTRUCTION SCHEDULER Ot M17.12 UNILATERAL PRIMARY OSTEOARTHRITIS, LEFT 11/19/2017 MYCHAL GARCIA CONSTRUCTION SCHEDULER Ot M85.869 OTH DISRD OF BONE DENSITY AND STRUCTURE, 11/19/2017 FLORENCIA HINOJOSA CONSTRUCTION SCHEDULER Ot 478.19 OTHER DISEASE OF NASAL CAVITY AND SINUSE 11/19/2017 FLORENCIA HINOJOSA CONSTRUCTION SCHEDULER Ot 780.93 MEMORY LOSS 11/19/2017 MYCHAL GARCIA CONSTRUCTION SCHEDULER Ot M17.12 UNILATERAL PRIMARY OSTEOARTHRITIS, LEFT 11/19/2017 MYCHAL GARCIAP Ot M85.869 OTH DISRD OF BONE DENSITY AND STRUCTURE, 12/10/2017 MYCHAL GARCIA CONSTRUCTION SCHEDULER Ot M17.12 UNILATERAL PRIMARY OSTEOARTHRITIS, LEFT 12/10/2017 MYCHAL GARCIAP Ot M85.869 OT DISRD OF BONE DENSITY AND STRUCTURE, 12/21/2017 MYCHAL GARCIA Ot M17.12 UNILATERAL PRIMARY OSTEOARTHRITIS, LEFT 12/21/2017 MYCHAL GARCIA Ot M85.8[address] [facility] DISRD OF BONE DENSITY AND STRUCTURE, Procedures Code Description [place] [address] ROUTINE VENIPUNCTURE 09/12/2013 0434539 GFR CALC (RESULT ONLY) 09/12/2013 04268 CMP 09/12/2013 84348 CBC 09/12/2013 48018 CELIAC DISEASE ANALYZER 09/12/2013 35789 TSH 09/12/2013 MAYELIN ALEJO 09/12/2013 70667 PSYCH DIAGNOSTIC EVALUATION 02/08/2014 38276 PSYCHO TESTING 1 HR W TECH 02/13/2014 92736 PSYTX PT&/FAMILY 45 MINUTES 03/02/2014 70875 PSYCHO TESTING 1 HR W COMP 03/07/[address] HEAD/BRAIN W/O & W/DYE 03/14/2014 90405 MRI BRAIN W/O & W/DYE 03/14/2014 57544 PSYCHO TESTING 1 HR W TECH 03/14/2014 44707 PSYTX PT&/FAMILY 45 MINUTES 03/27/2014 85956 A1C (IN-HOUSE) 04/26/2014 48241 ROUTINE VENIPUNCTURE 04/27/2014 7014613 GFR CALC (RESULT ONLY) 04/27/2014 45322 CMP 04/27/2014 92258 CBC 04/27/2014 08450 VITAMIN D 25-HYDROXY (D2,D3 , TOTAL) 04/27/2014 78813 TSH 04/27/2014 92656 PSYTX PT&/FAMILY 45 MINUTES 05/09/2014 16935 UA W/ CULTURE IF INDICATED 05/10/2014 58836 URINE DRUG SCREEN (IN-HOUSE ) 05/10/2014 79889 TEST, URINE (IN- HOUSE) 05/29/2014 43561 PSYTX PT&/FAMILY 45 MINUTES 06/14/2014 78264 PSYTX PT&/FAMILY 45 MINUTES 07/05/2014 89700 ROUTINE VENIPUNCTURE 12/06/2014 27119 RENAL PROFILE 12/06/2014 37590 UA W/ CULTURE IF INDICATED 12/06/2014 90909 URINE CREATININE (RANDOM) 12/06/2014 77940 URINE PROTEIN 12/06/2014 95224 CBC 12/06/2014 Results Test Result Range Prothrombin Time (PT) - 12/04/16 10:28 INR 1.0 0.8-1.2 Prothrombin Time 10.4 sec 9.1-12.0 PTT, Activated - 12/04/16 10:28 aPTT 29 sec 24-33 D-Dimer - 12/04/16 10:28 D-Dimer 0.29 mg/L FEU 0.00-0.49 CBC With Differential/Platelet - 12/24/16 12:09 WBC 6.8 x10E3/uL 3.4-10.8 RBC 4.00 x10E6/uL 3.77-5.28 Hemoglobin 12.4 g/dL 11.1-15.9 Hematocrit 36.3 % 34.0-46.6 MCV 91 fL 79-97 MCH 31.0 pg 26.6-33.0 MCHC 34.2 g/dL 31.5-35.7 RDW 12.3 % 12.3-15.4 Platelets 209 x10E3/uL 150-379 Neutrophils 67 % Lymphs 25 % Monocytes 6 % Eos 2 % Basos 0 % Neutrophils (Absolute) 4.5 x10E3/uL 1.4-7.0 Lymphs (Absolute) 1.7 x10E3/uL 0.7-3.1 Monocytes(Absolute) 0.4 x10E3/uL 0.1-0.9 Eos (Absolute) 0.1 x10E3/uL 0.0-0.4 Baso (Absolute) 0.0 x10E3/uL 0.0-0.2 Immature Granulocytes 0 % Immature Grans (Abs) 0.0 x10E3/uL 0.0-0.1 Urine beta human chorionic gonadotropin (hCG) measurement - 03/06/17 10:20 Urine beta human chorionic gonadotropin (hCG) measurement NEGATIVE NEGATIVE Methicillin resistant Staphylococcus aureus (MRSA) screening culture - 10:20 Methicillin resistant Staphylococcus aureus (MRSA) screening culture NEG NRG CBC With Differential/Platelet - 04/02/17 08:54 WBC 4.2 x10E3/uL 3.4-10.8 RBC 4.19 x10E6/uL 3.77-5.28 Hemoglobin 12.6 g/dL 11.1-15.9 Hematocrit 38.5 % 34.0-46.6 MCV 92 fL 79-97 MCH 30.1 pg 26.6-33.0 MCHC 32.7 g/dL 31.5-35.7 RDW 12.8 % 12.3-15.4 Platelets 199 x10E3/uL 150-379 Neutrophils 56 % Lymphs 33 % Monocytes 8 % Eos 2 % Basos 1 % Neutrophils (Absolute) 2.4 x10E3/uL 1.4-7.0 Lymphs (Absolute) 1.4 x10E3/uL 0.7-3.1 Monocytes(Absolute) 0.3 x10E3/uL 0.1-0.9 Eos (Absolute) 0.1 x10E3/uL 0.0-0.4 Baso (Absolute) 0.0 x10E3/uL 0.0-0.2 Immature Granulocytes 0 % Immature Grans (Abs) 0.0 x10E3/uL 0.0-0.1 Comp. Metabolic Panel (14) - 04/02/17 08:54 Glucose, Serum 86 mg/dL 65-99 BUN 10 mg/dL 6-20 Creatinine, Serum 1.29 mg/dL 0.57-1.00 eGFR If NonAfricn Am 53 mL/min/1.73 >59 eGFR If Africn Am 61 mL/min/1.73 >59 BUN/Creatinine Ratio 8 9-23 Sodium, Serum 141 mmol/L 134-144 Potassium, Serum 4.5 mmol/L 3.5-5.2 Chloride, Serum 102 mmol/L 96-106 Carbon Dioxide, Total 25 mmol/L 18-29 Calcium, Serum 9.4 mg/dL 8.7-10.2 Protein, Total, Serum 7.2 g/dL 6.0-8.5 Albumin, Serum 4.5 g/dL 3.5-5.5 Globulin, Total 2.7 g/dL 1.5-4.5 A/G Ratio 1.7 1.2-2.2 Bilirubin, Total 1.1 mg/dL 0.0-1.2 Alkaline Phosphatase, S 44 IU/L 39-117 AST (SGOT) 15 IU/L 0-40 ALT (SGPT) 7 IU/L 0-32 TSH - 04/02/17 08:54 TSH 1.520 uIU/mL 0.450-4.500 Urine beta human chorionic gonadotropin (hCG) measurement - 04/27/17 08:04 Urine beta human chorionic gonadotropin (hCG) measurement NEGATIVE NEGATIVE CBC With Differential/Platelet - 05/22/17 12:31 WBC 6.2 x10E3/uL 3.4-10.8 RBC 3.81 x10E6/uL 3.77-5.28 Hemoglobin 11.7 g/dL 11.1-15.9 Hematocrit 35.5 % 34.0-46.6 MCV 93 fL 79-97 MCH 30.7 pg 26.6-33.0 MCHC 33.0 g/dL 31.5-35.7 RDW 12.8 % 12.3-15.4 Platelets 205 x10E3/uL 150-379 Neutrophils 68 % Lymphs 25 % Monocytes 4 % Eos 3 % Basos 0 % Neutrophils (Absolute) 4.2 x10E3/uL 1.4-7.0 Lymphs (Absolute) 1.6 x10E3/uL 0.7-3.1 Monocytes(Absolute) 0.3 x10E3/uL 0.1-0.9 Eos (Absolute) 0.2 x10E3/uL 0.0-0.4 Baso (Absolute) 0.0 x10E3/uL 0.0-0.2 Immature Granulocytes 0 % Immature Grans (Abs) 0.0 x10E3/uL 0.0-0.1 Vitamin D, 25-Hydroxy - 05/22/17 12:31 Vitamin D, 25-Hydroxy 42.5 ng/mL 30.0-100.0 Vitamin B12 - 05/22/17 12:31 Vitamin B12 328 pg/mL 211-946 Urinalysis, Complete - 06/19/17 09:16 Specific [place] 1.024 1.005-1.030 pH 6.0 5.0-7.5 Urine-Color Yellow Yellow Appearance Turbid Clear WBC Esterase 2+ Negative Protein Negative Negative/Trace Glucose Negative Negative Ketones Negative Negative Occult Blood Trace Negative Bilirubin Negative Negative Urobilinogen,Semi-Qn 0.2 mg/dL 0.2-1.0 Nitrite, Urine Negative Negative Microscopic Examination See below: Microscopic Examination - 06/19/17 09:16 WBC 11-30 /hpf 0 - 5 RBC 3-10 /hpf 0 - 2 Epithelial Cells (non renal) 0-10 /hpf 0 - 10 Mucus Threads Present Not Estab. Bacteria Moderate None seen/Few Renal Panel (10) - 06/19/17 09:16 Glucose, Serum 93 mg/dL 65-99 BUN 10 mg/dL 6-20 Creatinine, Serum 1.31 mg/dL 0.57-1.00 eGFR If NonAfricn Am 52 mL/min/1.73 >59 eGFR If Africn Am 60 mL/min/1.73 >59 BUN/Creatinine Ratio 8 9-23 Sodium, Serum 140 mmol/L 134-144 Potassium, Serum 4.2 mmol/L 3.5-5.2 Chloride, Serum 102 mmol/L 96-106 Carbon Dioxide, Total 22 mmol/L 18-29 Calcium, Serum 9.1 mg/dL 8.7-10.2 Albumin, Serum 4.2 g/dL 3.5-5.5 Phosphorus, Serum 3.4 mg/dL 2.5-4.5 TSH - 12/11/17 14:08 TSH 1.62 mIU/L NRG T3 FREE - 12/11/17 14:08 T3, FREE 2.6 pg/mL 2.3-4.2 Encounters ACCT No. Visit Date/Time Discharge Status Pt. Type Provider Facility Loc./Unit Complaint [id number] 02/12/2015 11:55:00 02/12/2015 23:59:59 CLS Outpatient FLORENCIA HIONJOSA APRN [id number] 12/06/2014 16:11:00 12/06/2014 23:59:59 CLS Outpatient FLORENCIA HINOJOSA APRN [id number] 12/04/2014 15:06:00 12/04/2014 23:59:59 CLS Outpatient FLORENCIA HINOJOSA APRN [id number] 10/02/2014 15:13:00 10/02/2014 23:59:59 CLS Outpatient MARTA NAPIER APRN [id number] 08/18/2014 15:51:00 08/18/2014 23:59:59 CLS Outpatient FLORENCIA HINOJOSA APRN [id number] 07/21/2014 09:00:00 07/21/2014 23:59:59 CLS Outpatient FLORENCIA HINOJOSA APRN [id number] 06/23/2014 10:41:00 06/23/2014 23:59:59 CLS Outpatient FLORENCIA HINOJOSA APRN [id number] 06/14/2014 09:47:00 06/14/2014 23:59:59 CLS Outpatient CHRIS BLACKBETO [id number] 06/02/2014 15:00:00 06/02/2014 23:59:59 CLS Outpatient ASHISH JORGITOFLORENCIA Marija [id number] 05/10/2014 18:42:00 05/10/2014 23:59:59 CLS Outpatient ASHISH [employer]ET[employer] ANALYSTFLORENCIA Marija [id number] 05/09/2014 17:05:00 05/09/2014 23:59:59 CLS Outpatient BETO PEREZ PHD [id number] 04/27/2014 08:10:00 04/27/2014 23:59:59 CLS Outpatient ASHISH BULLFLORENCIA Marija [id number] 04/26/2014 15:20:00 04/26/2014 23:59:59 CLS Outpatient ASHISH [employer] MARKETING ANALYSTFLORENCIA Marija [id number] 04/12/2014 15:15:00 04/12/2014 23:59:59 CLS Outpatient ASHISH JORGITOFLORENCIA Marija [id number] 03/27/2014 16:04:00 03/27/2014 23:59:59 CLS Outpatient BETO PEREZ PHD [id number] 03/14/2014 17:00:00 03/14/2014 23:59:59 CLS Outpatient BETO PEREZ PHD [id number] 03/10/2014 10:51:00 03/10/2014 23:59:59 CLS Outpatient ASHISH BULL FLORENCIA Dutton [id number] 03/07/2014 16:03:00 03/07/2014 23:59:59 CLS Outpatient BETO PEREZ PHD [id number] 03/02/2014 14:52:00 03/02/2014 23:59:59 [facility] Outpatient BETO PEREZ PHD [id number] 02/13/2014 17:03:00 02/13/2014 23:59:59 CLS Outpatient BETO PEREZ PHD [id number] 02/08/2014 07:55:00 02/08/2014 23:59:59 CLS Outpatient BETO PEREZ PHD [id number] 01/16/2014 15:22:00 01/16/2014 23:59:59 CLS Outpatient ASHISH BULLFLORENCIA Marija [id number] 10/03/2013 16:31:00 10/03/2013 23:59:59 CLS Outpatient CAITLYN ARGUETA DO [id number] 09/12/2013 11:51:00 09/12/2013 23:59:59 CLS Outpatient ASHISH [employer]ET[employer] ANALYSTFLORENCIA Marija [id number] 07/05/2014 10:04:00 Document Registration [id number] 05/23/2017 08:07:00 Document Registration [id number] 12/11/2017 14:15:00 12/11/2017 23:59:59 CLS Outpatient FLORENCIA HINOJOSA APRN [facility] [place] [id number] 12/11/2017 14:15:00 Document Registration [id number] 06/20/2017 13:05:00 Document Registration [id number] 10/09/2017 16:02:00 10/09/2017 23:59:59 CLS Outpatient MYCHAL GARCIA [facility] RAD S83.282A LATERAL MENISCUS TEAR,MEDIAL MANISCUS [id number] 09/25/2017 11:00:00 09/25/2017 23:59:59 CLS Preadmit MYCHAL GARCIA [facility] RAD S83.241A,S83.282A [id number] 04/27/2017 07:51:00 04/27/2017 11:38:00 DIS Outpatient MAYELIN JACQUES MD [facility] ENDO MELENAL GERD [id number] 04/24/2017 09:00:00 04/24/2017 10:20:00 DIS Outpatient MAYELIN JACQUES MD [facility] PREOP MELENAL GERD [id number] 03/06/2017 10:08:00 03/06/2017 16:55:00 DIS Outpatient MAYELIN JACQUES MD [facility] FAMILY HISTORY POLYPS , RECTAL BLEEDING, HEMORROIDS [id number] 03/03/2017 05:43:00 03/03/2017 12:47:00 DIS Outpatient MAYELIN JACQUES MD [facility] PREOP FAMILY HX POLYPS, RECTAL BLEEDING, HEMORROIDS [id number] 01/22/2017 13:13:00 01/22/2017 23:59:59 CLS Outpatient FLORENCIA HINOJOSA [facility] RAD PELVIC PAIN,LUMBOS ACRAL NEURITIS [id number] 12/15/2016 15:12:00 12/15/2016 23:59:59 CLS Outpatient FLORENCIA HINOJOSA [facility] RAD LEFT GROIN PAIN [id number] 07/21/2016 11:50:00 07/21/2016 13:15:00 DIS Emergency BRYAN ZALDIVAR [facility] ER FOOT PAIN [id number] 11/29/2015 12:37:00 11/29/2015 23:59:59 CLS Outpatient BERNADETTE CUNHA MD, V [facility] LAB NONSPECIFIC ABNORM RESULTS KIDNEY FUNCTION STUDY [id number] 04/25/2015 17:24:00 04/25/2015 18:18:00 DIS Emergency BRYAN ZALDIVAR [facility] ER R FOOT INJ [id number] 04/21/2015 21:22:00 04/21/2015 21:55:00 DIS Emergency FANY FOX MD [facility] ER TOOTH ACHE [id number] 02/26/2015 05:52:00 02/26/2015 23:59:59 CLS Outpatient MAYELIN JACQUES MD [facility] PREOP HEMORRHOIDS [id number] 02/21/2015 11:30:00 02/21/2015 23:59:59 CLS Preadmit MAYELIN JACQUES MD [facility] HEMORRHOIDS [id number] 02/15/2015 13:05:00 02/15/2015 23:59:59 CLS Outpatient MAYELIN JACQUES MD [facility] PREOP HEMORRHOIDS [id number] 04/03/2014 11:42:00 04/03/2014 23:59:59 CLS Outpatient FLORENCIA HINOJOSA [facility] RAD MEMORY LOSS [id number] 02/21/2014 19:03:00 02/21/2014 21:06:00 DIS Emergency BRYAN ZALDIVAR [facility] ER [id number] 11/11/2013 20:23:00 11/11/2013 21:09:00 DIS Emergency HERRERA AGUILERA APRN [facility] ER [id number] 10/17/2013 08:00:00 10/17/2013 11:20:00 DIS Outpatient MAYELIN JACQUES MD [facility] [id number] 10/12/2013 07:35:00 10/12/2013 23:59:59 CLS Outpatient GEORGIE GRULLON, MAYELIN Kaur [facility] PREOP [id number] 09/28/2013 19:01:00 09/28/2013 19:50:00 DIS Emergency LONNIE PAGAN MD [facility] ER [id number] 06/14/2013 00:28:00 06/14/2013 02:07:00 DIS Emergency LONNIE PAGAN MD [facility] ER [id number] 06/11/2015 13:51:00 Document Registration [id number] 06/11/2015 13:51:00 Document Registration [id number] 03/05/2015 11:32:00 Document Registration [id number] 09/09/2011 15:35:00 Document Registration [id number] 02/12/2011 14:20:00 Document Registration [id number] 12/31/2010 05:53:00 Document Registration [id number] 12/23/2010 15:19:00 Document Registration [id number] 12/07/2010 10:20:00 Document Registration [id number] 12/25/2016 07:06:00 Document Registration [id number] 12/05/2016 10:06:00 Document Registration [id number] 04/03/2017 08:50:00 Document Registration
[2018-03-23] MEDS ORDERED: KETOROLAC 30 MG/ML VIAL IVP ONE (12:30)
[2018-03-23 12:42] LABS: BILIRUBIN,URINE NEGATIVE (NEGATIVE); CLARITY,URINE CLEAR; COLOR,URINE YELLOW; GLUCOSE, URINE (UA) NEGATIVE (NEGATIVE); KETONES,URINE NEGATIVE (NEGATIVE); LEUKOCYTE ESTERASE ,URINE 1+ (NEGATIVE); NITRITE,URINE NEGATIVE (NEGATIVE); PH,URINE 5 (5-9); PROTEIN,URINE 1+ (NEGATIVE); UROBILINOGEN,URINE NORMAL (NORMAL)
[2018-03-23 12:51] LABS: BACTERIA,URINE TRACE /HPF; SQUAMOUS EPITHELIAL CELL,UR 0-2 /HPF; WBC,URINE 0-2 /HPF
[2018-03-23] MEDS ORDERED: fentaNYL INJECTION 100 MCG/2 ML AMP IVP ONE ×3 (13:15→16:00)
[2018-03-23 13:31] LABS: ALBUMIN 3.9 GM/DL (3.2-4.5); BILIRUBIN,TOTAL 1.1 MG/DL (0.1-1.0); CALCIUM 8.5 MG/DL (8.5-10.1); CREATININE SERUM 1.1 MG/DL (0.60-1.30); POTASSIUM 3.3 MMOL/L (3.6-5.0); TOTAL PROTEIN 6.7 GM/DL (6.4-8.2)
[2018-03-23 13:48] LABS: BASOPHILS % (AUTO) 0 % (0-10); EOSINOPHILS # (AUTO) 0.1 10^3/uL (0.0-0.3); EOSINOPHILS % (AUTO) 1 % (0-10); HEMATOCRIT 34 % (35-52); HEMOGLOBIN 11.6 G/DL (11.5-16.0); LYMPHOCYTES # (AUTO) 2.1 X 10^3 (1.0-4.0); LYMPHOCYTES % (AUTO) 18 % (12-44); MEAN CORPUSCULAR HEMOGLOBIN 32 PG (25-34); MEAN CORPUSCULAR HGB CONC 35 G/DL (32-36); MEAN CORPUSCULAR VOLUME 92 FL (80-99); MEAN PLATELET VOLUME 11.6 FL (7.4-10.4); MONOCYTES # (AUTO) 0.7 X 10^3 (0.0-1.0); MONOCYTES % (AUTO) 6 % (0-12); NEUTROPHILS # (AUTO) 8.6 X 10^3 (1.8-7.8); NEUTROPHILS % (AUTO) 74 % (42-75); PLATELET COUNT 213 10^3/uL (130-400); RED BLOOD COUNT 3.64 10^6/uL (4.35-5.85); RED CELL DISTRIBUTION WIDTH 11.4 % (10.0-14.5); WHITE BLOOD COUNT 11.6 10^3/uL (4.3-11.0)
[2018-03-23 14:13] LABS: AMPHETAMINE SCREEN, URINE POSITIVE (NEGATIVE); BARBITURATE SCREEN URINE NEGATIVE (NEGATIVE); BENZODIAZEPINES SCREEN URINE NEGATIVE (NEGATIVE); CANNABINOID SCREEN, URINE NEGATIVE (NEGATIVE); COCAINE SCREEN URINE NEGATIVE (NEGATIVE); METHAMPHETAMINE SCREEN URINE S NEGATIVE (NEGATIVE); OPIATE SCREEN URINE NEGATIVE (NEGATIVE); TRICYCLIC ANTIDEPRESSANTS SCRE NEGATIVE (NEGATIVE)
[2018-03-23 14:14] LABS: METHADONE STAT NEGATIVE (NEGATIVE); OXYCODONE STAT POSITIVE (NEGATIVE); PROPOXYPHENE STAT NEGATIVE (NEGATIVE)
[2018-03-23] MEDS ORDERED: IOHEXOL 350 MG/ML 100 ML (OMNIPAQUE 350) VIAL IV ONE (14:15)
[2018-03-23] MEDS ORDERED: NS 250 ML (IVPB) BAG IV ONE (14:15)
--- NOTE | 2018-03-23 15:04 | Diagnostic Imaging Report ---
PROCEDURE: CT abdomen and pelvis with contrast. TECHNIQUE: Multiple contiguous axial images were obtained through the abdomen and pelvis after administration of intravenous contrast. INDICATION: Pelvic pain, hemorrhoidectomy one week ago. COMPARISON: Exam compared with pelvic CT 01/22/2017. FINDINGS: There is a Cline catheter with its retention balloon inflated within the urinary bladder lumen. No extravasation of bladder contrast. The bladder itself appeared unremarkable. Small amount of pelvic-free fluid isolated to the cul-de-sac showing no complexity. This is not an uncommon finding in female patients of this age. There is bilateral adnexal cyst presumed ovarian, largest on the right measuring 2.9 x 1.8 cm. Kidneys are unobstructed and appeared normal. The liver, gallbladder, spleen, adrenals and pancreas unremarkable. There is an IUD device within the uterus. No perirectal or perianal fluid collection. No evidence for an abscess. No hemorrhage or contrast extravasation. IMPRESSION: Adnexal cyst greater right, presumed ovarian, small likely physiologic pelvic free fluid. No bowel, biliary or urinary tract obstruction. Intact bladder. No hemorrhage, abscess or other fluid collection. Dictated by: Dictated on workstation # [id number]
[2018-03-23] MEDS ORDERED: LINA290C PO (15:10)
[2018-03-23] MEDS ORDERED: ZOLP10TA5 PO (15:10)
[2018-03-23] MEDS ORDERED: FURO20TA4 PO (15:10)
[2018-03-23] MEDS ORDERED: NALO25TA PO (15:10)
--- NOTE | 2018-03-23 15:33 | ED Abdominal Pain ---
General Chief Complaint: -Female Stated Complaint: UNABLE TO URINATE POST OP Nursing Triage Note: pt ambulated to ed accompanied by mother. pt states she had a hemorhhoidectomy at [facility] yesterday and began throwing up when she got home last night which is causing her to be unable to keep her pain meds down. pt also stated she has been unable to urinate. pt states pain is 10/10. Sepsis Screen: No Definite Risk Source of Information: Patient, Old Records Exam Limitations: No Limitations History of Present Illness Date Seen by Provider: March 23, 2018 Time Seen by Provider: 12:05 Initial Comments This 37-year-old woman presents to the emergency room with lower abdominal pain and complaints of inability to urinate after having a hemorrhoidectomy by Dr. Richmond at [facility] yesterday. She has had vomiting and inability to keep down her pain medications. She denies fever. She has had some dysuria described as a burning around the perineum with urination. She denies any vaginal symptoms. She does have a history of irritable bowel syndrome and endometriosis. She is scheduled for hysterectomy with Dr. Garcia in the near future. Allergies and Home Medications Allergies Coded Allergies: morphine (Verified Allergy, Unknown, SEVERE N/V, 04/27/17) prednisone (Verified Adverse Reaction, Mild, 04/27/17) Sulfa (Sulfonamide Antibiotics) (Verified Adverse Reaction, Unknown, DECREASE KIDNEY FUNCTION, 04/27/17) Home Medications Ondansetron 4 Mg Tab.rapdis, 4 MG SL Q4H PRN for NAUSEA/VOMITING-1ST LINE Prescribed by: LONNIE ASENCIO on 03/23/18 1553 Oxycodone HCl/Acetaminophen 1 Each Tablet, 1 EACH PO PRN, (Reported) Oxycodone HCl/Acetaminophen 1 Each Tablet, 1-2 EACH PO Q4H PRN for PAIN- MODERATE TO SEVERE Prescribed by: LONNIE ASENCIO on 03/23/18 1717 Patient Home Medication List Home Medication List Reviewed: Yes Review of Systems Constitutional: no symptoms reported EENTM: No Symptoms Reported Respiratory: No Symptoms Reported Cardiovascular: No Symptoms Reported Gastrointestinal: See HPI Genitourinary: See HPI Musculoskeletal: no symptoms reported Skin: no symptoms reported Psychiatric/Neurological: No Symptoms Reported Endocrine: No Symptoms Reported Past Cuvfrdh-Beuygm-Mdhqqt Hx Patient Social History Alcohol Use: Denies Use Recreational Drug Use: No Smoking Status: Former Smoker Former Smoker, Quit: Mar 03, 2014 Recent Foreign Travel: No Contact w/Someone Who Travel: No Recent Infectious Disease Expo: No Recent Hopitalizations: No Physical Abuse: No Sexual Abuse: No Immunizations Up To Date Tetanus Booster (TDap): Less than 5yrs Seasonal Allergies Seasonal Allergies: No Past Medical History Surgeries: Yes ( X2, NECK FUSION) Appendectomy, Tonsillectomy Respiratory: Yes (NO ACUTE SINCE 2014) Asthma Cardiac: No Neurological: No : No Reproductive Disorders: No Female Reproductive Disorders: Denies, Endometriosis 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 Sexually Transmitted Disease: No HIV/AIDS: Yes Genitourinary: Yes Kidney Stones, Renal Failure Gastrointestinal: Yes Chronic Constipation, Hemorrhoids, Irritable Bowel Musculoskeletal: No Endocrine: No Loss of Vision: Denies Hearing Impairment: Denies Cancer: No Psychosocial: Yes Anxiety Nursing Suicide Risk Score: 0 Integumentary: Yes (GETS HIVES FREQUENTLY) Blood Disorders: Yes (ANEMIA) Adverse Reaction/Blood Tranf: No (N/A) Family Medical History No Pertinent Family Hx Physical Exam Vital Signs Vital Signs - First Documented 03/23/18 03/23/18 12:05 17:29 Temp 98.2 Pulse 81 Resp 18 B/P (MAP) 98/51 (67) Pulse Ox 99 O2 Delivery Room Air Capillary Refill : Less Than 3 Seconds General Appearance: WD/WN, mild distress HEENT: PERRL/EOMI, normal ENT inspection, pharynx normal Neck: normal inspection Respiratory: lungs clear, normal breath sounds, no respiratory distress, no accessory muscle use Cardiovascular: regular rate, rhythm, no edema, no murmur Gastrointestinal: normal bowel sounds, soft, tenderness (Across the lower abdomen) Extremities: normal inspection, no pedal edema 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, no motor/sensory deficits, alert, normal mood/affect, oriented x 3 Skin: normal color, warm/dry Progress/Results/Core Measures Lab Results Laboratory Tests Test 03/23/18 12:29 03/23/18 12:45 Range/Units Urine Color YELLOW Urine Clarity CLEAR Urine pH 5 5-9 Urine Specific [place] 1.020 1.016-1.022 Urine Protein 1+ H NEGATIVE Urine Glucose (UA) NEGATIVE NEGATIVE Urine Ketones NEGATIVE NEGATIVE Urine Nitrite NEGATIVE NEGATIVE Urine Bilirubin NEGATIVE NEGATIVE Urine Urobilinogen NORMAL NORMAL MG/DL Urine Leukocyte Esterase 1+ H NEGATIVE Urine RBC (Auto) NEGATIVE NEGATIVE Urine RBC NONE /HPF Urine WBC 0-2 /HPF Urine Squamous Epithelial Cells 0-2 /HPF Urine Crystals NONE /LPF Urine Bacteria TRACE /HPF Urine Casts NONE /LPF Urine Mucus SMALL H /LPF Urine Culture Indicated NO Urine Opiates Screen NEGATIVE NEGATIVE Urine Oxycodone Screen POSITIVE H NEGATIVE Urine Methadone Screen NEGATIVE NEGATIVE Urine Propoxyphene Screen NEGATIVE NEGATIVE Urine Barbiturates Screen NEGATIVE NEGATIVE Ur Tricyclic Antidepressants Screen NEGATIVE NEGATIVE Urine Phencyclidine Screen NEGATIVE NEGATIVE Urine Amphetamines Screen POSITIVE H NEGATIVE Urine Methamphetamines Screen NEGATIVE NEGATIVE Urine Benzodiazepines Screen NEGATIVE NEGATIVE Urine Cocaine Screen NEGATIVE NEGATIVE Urine Cannabinoids Screen NEGATIVE NEGATIVE White Blood Count 11.6 H 4.3-11.0 10^3/uL Red Blood Count 3.64 L 4.35-5.85 10^6/uL Hemoglobin 11.6 11.5-16.0 G/DL Hematocrit 34 L 35-52 % Mean Corpuscular Volume 92 80-99 FL Mean Corpuscular Hemoglobin 32 25-34 PG Mean Corpuscular Hemoglobin Concent 35 32-36 G/DL Red Cell Distribution Width 11.4 10.0-14.5 % Platelet Count 213 130-400 10^3/uL Mean Platelet Volume 11.6 H 7.4-10.4 FL Neutrophils (%) (Auto) 74 42-75 % Lymphocytes (%) (Auto) 18 12-44 % Monocytes (%) (Auto) 6 0-12 % Eosinophils (%) (Auto) 1 0-10 % Basophils (%) (Auto) 0 0-10 % Neutrophils # (Auto) 8.6 H 1.8-7.8 X 10^3 Lymphocytes # (Auto) 2.1 1.0-4.0 X 10^3 Monocytes # (Auto) 0.7 0.0-1.0 X 10^3 Eosinophils # (Auto) 0.1 0.0-0.3 10^3/uL Basophils # (Auto) 0.0 0.0-0.1 10^3/uL Sodium Level 137 135-145 MMOL/L Potassium Level 3.3 L 3.6-5.0 MMOL/L Chloride Level 105 98-107 MMOL/L Carbon Dioxide Level 22 21-32 MMOL/L Anion Gap 10 5-14 MMOL/L Blood Urea Nitrogen 10 7-18 MG/DL Creatinine 1.10 0.60-1.30 MG/DL Estimat Glomerular Filtration Rate 56 BUN/Creatinine Ratio 9 Glucose Level 99 70-105 MG/DL Calcium Level 8.5 8.5-10.1 MG/DL Total Bilirubin 1.1 H 0.1-1.0 MG/DL Aspartate Amino Transf (AST/SGOT) 12 5-34 U/L Alanine Aminotransferase (ALT/SGPT) 6 0-55 U/L Alkaline Phosphatase 37 L 40-136 U/L Total Protein 6.7 6.4-8.2 GM/DL Albumin 3.9 3.2-4.5 GM/DL Lipase 28 8-78 U/L Serum Test, Qualitative NEGATIVE NEGATIVE My Orders Orders - LONNIE PAGAN MD Ua Culture If Indicated (03/23/18 12:05) Saline Lock/Iv-Start (03/23/18 12:15) Ns Iv 1000 Ml (Sodium Chloride 0.9%) (03/23/18 12:15) Cbc With Automated Diff (03/23/18 12:15) Ondansetron Injection (Zofran Injectio (03/23/18 12:15) Cline Cath Insertion (03/23/18 12:15) Ketorolac Injection (Toradol Injection) (03/23/18 12:30) Comprehensive Metabolic Panel (03/23/18 12:58) Hcg,Qualitative Serum (03/23/18 12:58) Lipase (03/23/18 12:58) Fentanyl Injection (Sublimaze Injection (03/23/18 13:15) Drug Screen Stat (Urine) (03/23/18 13:44) Ct Abdomen/Pelvis W (03/23/18 14:03) Fentanyl Injection (Sublimaze Injection (03/23/18 14:15) Iohexol Injection (Omnipaque 350 Mg/Ml 1 (03/23/18 14:15) Ns (Ivpb) (Sodium Chloride 0.9%) (03/23/18 14:15) Fentanyl Injection (Sublimaze Injection (03/23/18 16:00) Ondansetron Injection (Zofran Injectio (03/23/18 16:00) Potassium Chloride (Tablet) (Klor Con Ta (03/23/18 16:00) Medications Given in ED Current Medications Medications Dose Ordered Sig/Marko Route Start Time Stop Time Status Last Admin Dose Admin Fentanyl Citrate 50 mcg ONCE ONCE IVP 03/23/18 13:15 03/23/18 13:16 DC 03/23/18 13:18 50 MCG Fentanyl Citrate 75 mcg ONCE ONCE IVP 03/23/18 14:15 03/23/18 14:16 DC 03/23/18 14:17 75 MCG Fentanyl Citrate 75 mcg ONCE ONCE IVP 03/23/18 16:00 03/23/18 16:01 DC 03/23/18 16:08 75 MCG Iohexol 100 ml ONCE ONCE IV 03/23/18 14:15 03/23/18 14:16 DC 03/23/18 14:24 100 ML Ketorolac Tromethamine 15 mg ONCE ONCE IVP 03/23/18 12:30 03/23/18 12:31 DC 03/23/18 12:48 15 MG Ondansetron HCl 4 mg ONCE ONCE IVP 03/23/18 12:15 03/23/18 12:18 DC 03/23/18 12:50 4 MG Ondansetron HCl 4 mg ONCE ONCE IVP 03/23/18 16:00 03/23/18 16:01 DC 03/23/18 16:08 4 MG Potassium Chloride 20 meq ONCE ONCE PO 03/23/18 16:00 03/23/18 16:01 DC 03/23/18 16:08 20 MEQ Sodium Chloride 250 ml ONCE ONCE IV 03/23/18 14:15 03/23/18 14:16 DC 03/23/18 14:24 80 ML Sodium Chloride 1,000 ml @ 0 mls/hr Q0M ONCE IV 03/23/18 12:15 03/23/18 12:18 DC 03/23/18 12:54 1,000 MLS/HR Vital Signs/I&O 03/23/18 03/23/18 03/23/18 12:05 16:08 17:29 Temp 98.2 98.2 98.4 Pulse 81 71 Resp 18 24 B/P (MAP) 98/51 (67) 101/70 Pulse Ox 99 O2 Delivery Room Air Room Air Blood Pressure Mean: 67 Progress Note : Progress Note Patient was treated with Zofran, Toradol, fentanyl, and IV fluids. Cline catheter was placed because the patient's complaint that she could not urinate. However, only a small amount of urine was returned immediately after placement. She did continue to produce more urine throughout her ER stay. Urinary obstruction was ruled out based on only small amount of urine in the Cline and no distention of the bladder on CT scan. Because of the extent of patient's pain, CT scan of the abdomen and pelvis was performed. No significant acute pathology was found. Patient did have cystic lesions on the adnexa suspected of ovarian cysts. I discussed pain management with the patient. She was offered short-term prescription of Percocet so that she could double her dose. She needs to discuss this with her primary care provider as she is on a pain management contract. Diagonstic Imaging: CT Plain Films/CT/US/NM/MRI: abdomen, pelvis Comments CT abdomen and pelvis viewed by me and report reviewed. See report below: NAME: ERIC [facility] REC#: [id number] PT STATUS: REG ER : 1980 PHYSICIAN: LONNIE PAGAN MD ADMIT DATE: 03/23/18/ER Draft Date of Exam:03/23/18 CT ABDOMEN/PELVIS W PROCEDURE: CT abdomen and pelvis with contrast. TECHNIQUE: Multiple contiguous axial images were obtained through the abdomen and pelvis after administration of intravenous contrast. INDICATION: Pelvic pain, hemorrhoidectomy one week ago. COMPARISON: Exam compared with pelvic CT 01/22/2017. FINDINGS: There is a Cline catheter with its retention balloon inflated within the urinary bladder lumen. No extravasation of bladder contrast. The bladder itself appeared unremarkable. Small amount of pelvic-free fluid isolated to the cul-de-sac showing no complexity. This is not an uncommon finding in female patients of this age. There is bilateral adnexal cyst presumed ovarian, largest on the right measuring 2.9 x 1.8 cm. Kidneys are unobstructed and appeared normal. The liver, gallbladder, spleen, adrenals and pancreas unremarkable. There is an IUD device within the uterus. No perirectal or perianal fluid collection. No evidence for an abscess. No hemorrhage or contrast extravasation. IMPRESSION: Adnexal cyst greater right, presumed ovarian, small likely physiologic pelvic free fluid. No bowel, biliary or urinary tract obstruction. Intact bladder. No hemorrhage, abscess or other fluid collection. Dictated on workstation # [id number] Dict: 03/23/18 1443 Trans: 03/23/18 1503 [facility] [id number] Interpreted by: LEE WEBBER Departure Impression Primary Impression: Lower abdominal pain Additional Impressions: Dysuria Nausea and vomiting Qualified Codes: R11.2 - Nausea with vomiting, unspecified Disposition: HOME, SELF-CARE Condition: Improved Departure-Patient Inst. Decision time for Depature: 15:49 Referrals: [facility] (PCP/Family) Primary Care Physician Patient Instructions: Acute Abdomen (Belly Pain) Add. Discharge Instructions: Consume primarily a clear liquid diet for the remainder of the day. Then gradually advance your diet observing recommendations provided by your surgeon. Use Zofran (ondansetron) as prescribed for nausea and vomiting. You may take up to 2 of your Percocet every 4 hours as needed for pain. Contact both your surgeon and your pain medication prescriber to inform them of your current situation. Return to care if you have worsening symptoms. All discharge instructions reviewed with patient and/or family. Voiced understanding. Scripts Oxycodone HCl/Acetaminophen (Percocet 5-325 mg Tablet) 1 Each Tablet 1-2 EACH PO Q4H PRN for PAIN-MODERATE TO SEVERE, #10 TAB Prov: LONNIE PAGAN MD 03/23/18 Ondansetron (Zofran Odt) 4 Mg Tab.rapdis 4 MG SL Q4H PRN for NAUSEA/VOMITING-1ST LINE, #10 TAB 1 Refill Prov: LONNIE PAGAN MD 03/23/18 Copy Copies To 1: CAITLYN ARGUETA DO Copies To 2: TABATHA GARCIA DO LONNIE PAGAN MD March 23, 2018 15:33
[2018-03-23] MEDS ORDERED: ONDA4TAB8 SL (15:53)
[2018-03-23] MEDS ORDERED: KCL 10 MEQ TAB (MICRO K) PO ONE (16:00)
[2018-03-23] MEDS ORDERED: OXYC-197 PO (17:17)
[2018-03-23 17:29] VITALS: BP 101/70
== END 2018-03-23 17:29 | disposition home or self-care (01) ==
LOC: EDUNIT# 11:57 → ER 12:02
DX: R10.30 Lower abdominal pain, unspecified (principal); R11.2 Nausea with vomiting, unspecified; R30.0 Dysuria; F41.9 Anxiety disorder, unspecified; J45.909 Unspecified asthma, uncomplicated; Z87.442 Personal history of urinary calculi; Z97.5 Presence of (intrauterine) contraceptive device; Z21 Asymptomatic human immunodeficiency virus [HIV] infection status; Z88.5 Allergy status to narcotic agent; Z88.8 Allergy status to other drugs, medicaments and biological substances; Z88.0 Allergy status to penicillin; Z90.89 Acquired absence of other organs; Z87.19 Personal history of other diseases of the digestive system; Z87.891 Personal history of nicotine dependence; Z87.59 Personal history of other complications of pregnancy, childbirth and the puerperium; Z98.1 Arthrodesis status
CPT/HCPCS: 36415; 74177; 80053; 80306; 81000; 83690; 84703; 85025; 96361; 96374; 96375; 96376

== ENCOUNTER → 2018-06-03 | Outpatient (CLI) | payer MEDICAID, OTHER ==
[~2018-06-03] MED LIST changes: +CEFU500T63 PO; +DIAZ5TAB PO; +DOCU100C37 PO; +FURO20TA4 PO; +LINA290C PO; +NALO25TA PO; +ONDA4TAB8 SL; +OXYC-197 PO; +PHEN-639 PO; +SIME80TA16 PO; +ZOLP10TA5 PO
== END ==
LOC: RAD 10:37
PROVIDERS: ATTEND Nurse Practitioner Community Health
DX: E34.8 Other specified endocrine disorders (principal); Z53.8 Procedure and treatment not carried out for other reasons

== ENCOUNTER 2018-06-09 07:46 | Outpatient (CLI) | payer MEDICAID ==
[~2018-06-09] VITALS: Ht 167.6 cm; Wt 74.4 kg
[~2018-06-09 07:46] MED LIST changes: -CEFU500T63 PO; -DIAZ5TAB PO; -DOCU100C37 PO; -PHEN-639 PO; -SIME80TA16 PO
[2018-06-09 08:02] VITALS: BP 109/70
[2018-06-09] MEDS ORDERED: DIAZ5TAB PO (08:09)
[2018-06-09 08:42] LABS: BASOPHILS % (AUTO) 0 % (0-10); EOSINOPHILS # (AUTO) 0.1 10^3/uL (0.0-0.3); EOSINOPHILS % (AUTO) 3 % (0-10); HEMATOCRIT 38 % (35-52); HEMOGLOBIN 13.1 G/DL (11.5-16.0); LYMPHOCYTES # (AUTO) 1.3 X 10^3 (1.0-4.0); LYMPHOCYTES % (AUTO) 24 % (12-44); MEAN CORPUSCULAR HEMOGLOBIN 32 PG (25-34); MEAN CORPUSCULAR HGB CONC 35 G/DL (32-36); MEAN CORPUSCULAR VOLUME 92 FL (80-99); MEAN PLATELET VOLUME 11.4 FL (7.4-10.4); MONOCYTES # (AUTO) 0.4 X 10^3 (0.0-1.0); MONOCYTES % (AUTO) 7 % (0-12); NEUTROPHILS # (AUTO) 3.4 X 10^3 (1.8-7.8); NEUTROPHILS % (AUTO) 66 % (42-75); PLATELET COUNT 197 10^3/uL (130-400); RED BLOOD COUNT 4.14 10^6/uL (4.35-5.85); RED CELL DISTRIBUTION WIDTH 12.2 % (10.0-14.5); WHITE BLOOD COUNT 5.1 10^3/uL (4.3-11.0)
[2018-06-09 08:42] LABS: BILIRUBIN,URINE NEGATIVE (NEGATIVE); CLARITY,URINE CLEAR; COLOR,URINE YELLOW; GLUCOSE, URINE (UA) NEGATIVE (NEGATIVE); KETONES,URINE NEGATIVE (NEGATIVE); LEUKOCYTE ESTERASE ,URINE NEGATIVE (NEGATIVE); NITRITE,URINE NEGATIVE (NEGATIVE); PH,URINE 6 (5-9); PROTEIN,URINE NEGATIVE (NEGATIVE); UROBILINOGEN,URINE NORMAL (NORMAL)
[2018-06-09 09:02] LABS: BACTERIA,URINE NEGATIVE /HPF; RBC,URINE RARE /HPF; SQUAMOUS EPITHELIAL CELL,UR 0-2 /HPF; WBC,URINE RARE /HPF
[2018-06-09 09:09] LABS: ALBUMIN 4.2 GM/DL (3.2-4.5); BILIRUBIN,TOTAL 0.8 MG/DL (0.1-1.0); CREATININE SERUM 1.14 MG/DL (0.60-1.30); POTASSIUM 4.3 MMOL/L (3.6-5.0); TOTAL PROTEIN 7.2 GM/DL (6.4-8.2)
[2018-06-23] MEDS ORDERED: SIME80TA16 PO (08:50)
[2018-06-23] MEDS ORDERED: DOCU100C37 PO (08:50)
[2018-06-23] MEDS ORDERED: OXYC-465 PO (08:50)
== END 2018-06-09 08:30 | disposition home or self-care (01) ==
LOC: PREOP 07:46
PROVIDERS: ATTEND Obstetrics & Gynecology
DX: Z01.812 Encounter for preprocedural laboratory examination (principal); Z11.2 Encounter for screening for other bacterial diseases; N81.9 Female genital prolapse, unspecified; N39.3 Stress incontinence (female) (male); N80.9 Endometriosis, unspecified; N83.201 Unspecified ovarian cyst, right side; R31.9 Hematuria, unspecified
CPT/HCPCS: 36415; 80053; 81000; 85025; 86850; 86900; 86901; 87081

== ENCOUNTER 2018-06-22 06:10 | Day surgery (SDC) | payer MEDICAID ==
[~2018-06-22] VITALS: Ht 167.6 cm; Wt 74.4 kg
[2018-06-22] VITALS (9 sets, daily range): BP systolic 86–118; BP diastolic 54–85
[~2018-06-22 06:10] MED LIST changes: +DIAZ5TAB PO
[2018-06-22] MEDS: LACTATED RINGERS 1,000 ML IV PRN ×2 (06:25→08:03)
[2018-06-22] MEDS ORDERED: SEVOFLURANE (ULTANE) 15 ML INHAL SOLN ONE ×10 (06:34→10:09)
[2018-06-22] MEDS ORDERED: HURRICAINE EXT TUBE (BENZOCAINE) ONE (06:34)
[2018-06-22] MEDS ORDERED: proPOfol 200 MG/20 ML (DIPRIVAN) VIAL IV ONE (06:34)
[2018-06-22] MEDS ORDERED: ATRACURIUM 50 MG/5 ML (TRACRIUM) IV ONE ×2 (06:34→06:46)
[2018-06-22] MEDS ORDERED: LACTATED RINGERS 1,000 ML IV ONE (06:34)
[2018-06-22] MEDS ORDERED: LIDOCAINE PF 2% 5 ML (XYLOCAINE) VIAL ONE (06:34)
[2018-06-22] MEDS ORDERED: DEXAMETHASONE 10 MG/ML (DECADRON) 1 ML VIAL ONE (06:34)
[2018-06-22] MEDS ORDERED: fentaNYL INJECTION 100 MCG/2 ML AMP ONE (06:35)
[2018-06-22] MEDS ORDERED: MIDAZOLAM 2 MG/2 ML (VERSED) VIAL ONE (06:35)
[2018-06-22] MEDS ORDERED: CATHETER FLUSH 10 ML SYR IV PRN (07:15)
[2018-06-22] MEDS ORDERED: ceFAZolin INJECTION 1,000 MG in NS (IVPB) 50 ML IV ONE (07:15)
[2018-06-22] MEDS ORDERED: BUP/EPI 0.5% 1:200,000 (SENSORCAINE) 30 ML VIAL ONE (07:16)
[2018-06-22] MEDS ORDERED: metroNIDAZOLE 500MG/100ML IVPB 100 ML ONE (07:16)
[2018-06-22] MEDS ORDERED: VASOPRESSIN INJECTION 20 UNIT/ML VIAL ONE ×3 (07:17→07:19)
[2018-06-22] MEDS ORDERED: KETOROLAC 30 MG/ML VIAL ONE (10:00)
--- NOTE | 2018-06-22 10:24 | Operative Report ---
Operative Report Date of Procedure/Surgery Jun 22, 2018 Surgeon (s) TABATHA GARCIA DO Adult School Teacher (s): JORGITO Gaona nec to retract important neurovas structures Post-Operative Diagnosis genital prolapse, incomplete menometrorrhagia dysmenorrhea endoemtriosis ovriaan cysts bilaterally JAYDEN enterocele Procedure Performed RaT shani salpingectomy, bilateral ovarian cystectomies, culdoplasty Solyx pubovaginal sling Description of Procedure Anesthesia Type: General Estimated blood loss (mL): minimal Specimen(s) collected/removed uterus, bilateral tubes, ovarian cyst haney x 4, peritoneal biopsy/inclusion cyst Description of the Procedure After informed consent was obtained, patient was taken into the operating room where general anesthetic was found to be adequate. She was prepped and draped in the usual sterile fashion in the dorsal lithotomy position. A Cline catheter was placed. A speculum was placed in the vagina. The anterior lip of the cervix was grasped with a sharp toothed tenaculum. The uterus was sounded and depth was approximately 10 cm centimeters. I placed the Christina device. And then set the Christina to 12 (I intentionally perforated the uterus for improvement of manipulation) cm and a 3.5 cm collar was advanced over the cervix. I inserted the Christina without difficulty, inflating the balloon and securing it around the fornix of the cervix. The collar was then secured with sutures at 12 o'clock. Attention was then turned to the patient's abdomen. A supraumbilical incision was made about 8 mm (above her periumbilical tattoo). A Veress needle was inserted and I confirmed intraabdominal placement with a drop in pressure and the saline drop test. I then insufflated the abdomen to a maximum of 15 mmHg with warmed CO2 gas. I then placed an 8 mm trocar and then the Da Leda camera and intraperitoneal placement was confirmed. I then determined the procedure could be continued robotically. The first robotic port was placed about 15 cm lateral to the right and left of the umbilical placement and slightly inferior. These are both 8 mm trocars. These were placed under direct visualization of the laparoscope. 0.25% Marcaine was injected prior to placement of all trocars. When all placements were confirmed, the patient was placed in steep Trendelenburg allowing adequate visualization and the robot was brought in for docking. The docking was accomplished without difficulty. A survey of the pelvis confirmed the above mentioned findings. There were several bilateral ovarian cysts. These were on the surface of the ovary and, while they appeared benign, they did not appear to be ovulatory. I removed these cysts at the end of the procedure with the laparoscopic, monopolar brianne, and sent them for pathology (2 off each ovary). Now I was able to visualize the round ligaments bilaterally and grasped them and cauterized with bipolar cautery and then cut with my brianne. At this point, I then did bilateral salpingectomy. I cut along the mesosalpinx with the monopolar brianne and then dissected up to the cornu bilaterally. I then moved to the uteroovarian ligaments. I sealed the vessel and transected bilaterally using the bipolar cautery and then cut with the monopolar brianne. I then moved my dissection to the posterior leaves of the broad ligament. I dissected the posterior leaves of the broad ligament off the uterine arteries skeletonizing them bilaterally. I then took a second clamp with the bipolar cautery and with the brianne, transected the vessels away from the lateral aspect to the cervical stroma. I dissected the anterior peritoneum off the lower uterine segment. I continually pushed the bladder back and I took excessively great care and I was eventually able to dissect the vesicouterine peritoneum off the lower uterine segment. There was an Nathan Masters window in the posterior culdesac near the right uterosacral ligament. This appeared to be a dimple but then turned out to be a deep pocket with a peritoneal inclusion that was sent for pathology. I then dissected in a V fashion towards the midline between the uterosacral ligaments. This allowed me to skeletonize the uterine vessels bilaterally. The balloon on the CHRISTINA was insufflated. This allowed me to see the CHRISTINA circumferentially. I then performed a colpotomy anteriorly and then amputate with cervix away from the vaginal fornix. I then continued the colpotomy circumferentially. Once this was performed, the rn first assistant removed the uterus through the vagina. A sponge was left in the vagina to maintain pneumoperitoneum. I then began closure of the vaginal cuff. I closed the apices of the vaginal cuff with 2-0 Vicryl V lock sutures with a colposuspension through the uterosacral ligaments. This suspended the apices of the vaginal cuff. I extended this to the midline from both sides and overlapped the V lock sutures in the midline. Excellent closure is noted and hemostasis is achieved. There was a deep enterocele and therefore a culdoplasty was done with the V Lock suture in a purse string fashion closing the defect. I was able to now see the ureters bilaterally and these are well away from the area of dissection. All the needles were removed from the patient's abdomen. Patient was now repositioned for the vaginal portion of the procedure. The anterior vaginal epithelium was grasped in the midline with an Allis clamp. The anterior vaginal epithelium was injected with dilute vasopressin. Then a 1 cm incision was made in the suburethral space with a scalpel about 1.5 cm from the urethral meatus. I dissected bilaterally to the obturator membranes and then inserted the Solyx bilaterally and then tightened under the midurethra. I did a cystoscopy which was negative. There was bilateral urethral efflux of urine. I then kept 300 ml in the bladder and did a Cred. There was minimal leakage. The sling laid gently under the urethra and was not too tight. There was no intravesicular pathology. The incision was closed with 4-0 Monocryl in a running fashion. Cline was reinserted. After the culdoplasty, The rectocele was minimal so a rectocele repair was not done. Patient was awakened and taken to the recovery room in stable condition. Following the case, instrument counts were correct. The patient was repositioned in the supine position and awakened from general anesthesia without difficulty. She was taken to recovery in stable condition. She will be observed overnight. Findings of the Procedure Nathan masters window posterior culdesac near right uterosacral ligament bilateral cysts, multiple, exophytic, appear benign boggy enlarged uterus. Normal appearing tubes Allergies and Home Medications Allergies Coded Allergies: metronidazole (Verified Allergy, Unknown, NAUSEA, 06/09/18) morphine (Verified Allergy, Unknown, SEVERE N/V, 04/27/17) prednisone (Verified Adverse Reaction, Mild, 04/27/17) Sulfa (Sulfonamide Antibiotics) (Verified Adverse Reaction, Unknown, DECREASE KIDNEY FUNCTION, 04/27/17) Home Medications Diazepam 5 Mg Tablet, 5 MG PO HS PRN for ANXIETY, (Reported) Furosemide 20 Mg Tablet, 20 MG PO DAILY, (Reported) Linaclotide 290 Mcg Capsule, 290 MG PO DAILY, (Reported) Naloxegol Oxalate 25 Mg Tablet, 25 MG PO DAILY, (Reported) Oxycodone HCl/Acetaminophen 1 Each Tablet, 1 EACH PO TID PRN for PAIN-MILD TO MODERATE, (Reported) Zolpidem Tartrate 10 Mg Tablet, 10 MG PO HS, (Reported) Patient Home Medication List Home Medication List Reviewed: Yes TABATHA GARCIA DO Jun 22, 2018 10:24
[2018-06-22] MEDS ORDERED: LACTATED RINGERS 1,000 ML IV SCH (10:25)
[2018-06-22] MEDS ORDERED: morphine INJ 10 MG/ML 1ML (SYR OR VIAL) ONE (10:29)
[2018-06-22] MEDS ORDERED: ANTACID SUSP 30 ML UDC (MYLANTA) PO PRN (10:30)
[2018-06-22] MEDS ORDERED: ONDANSETRON 4 MG/2 ML (SDV) Z0FRAN IVP PRN (10:30)
[2018-06-22] MEDS ORDERED: ONDANSETRON 4 MG/2 ML (SDV) Z0FRAN IV PRN (10:30)
[2018-06-22] MEDS ORDERED: SIMETHICONE 80 MG (MYLICON) CHEW PO PRN (10:30)
[2018-06-22] MEDS ORDERED: HYDROmorphone 1 MG/ML (DILAUDID) 1 ML SYRINGE IV PRN (10:30)
[2018-06-22] MEDS ORDERED: ONDANSETRON 4 MG/2 ML (SDV) Z0FRAN ONE (10:30)
[2018-06-22] MEDS ORDERED: DOCUSATE SODIUM 100 MG (COLACE) CAP PO PRN (10:30)
[2018-06-22] MEDS ORDERED: ZOLPIDEM 5 MG (AMBIEN) TAB PO PRN (10:30)
[2018-06-22] MEDS ORDERED: PROMETHAZINE INJ 25 MG/ML (PHENERGAN) AMP IVP PRN (10:30)
[2018-06-22] MEDS ORDERED: fentaNYL INJECTION 100 MCG/2 ML AMP IVP PRN (10:30)
[2018-06-22] MEDS ORDERED: MEPERIDINE (DEMEROL) INJ 50 MG/ML IVP PRN (10:30)
[2018-06-22] MEDS: morphine INJ 10 MG/ML 1ML (SYR OR VIAL) IVP PRN ×2 (10:33→10:38)
[2018-06-22] MEDS ORDERED: HYDROmorphone 1 MG/ML (DILAUDID) 1 ML SYRINGE ONE (12:00)
[2018-06-22] MEDS ORDERED: FUROSEMIDE 20 MG (LASIX) TAB PO NR (14:30)
[2018-06-22] MEDS ORDERED: PATIENT MAY USE OWN MED,SINGLE MED PO SCH (14:30)
[2018-06-22] MEDS: oxyCODONE/APAP 10/325MG (PERCOCET 10) TABLET PO SCH ×2 (15:08→21:19)
[2018-06-22] MEDS: LACTATED RINGERS 1,000 ML IV SCH ×3 (19:46→23:23)
[2018-06-23] MEDS: oxyCODONE/APAP 10/325MG (PERCOCET 10) TABLET PO SCH ×3 (03:31→15:33)
[2018-06-23 03:35] VITALS: BP 90/55
[2018-06-23] MEDS: LACTATED RINGERS 1,000 ML IV SCH (03:35)
--- NOTE | 2018-06-23 05:47 | Progress Note-Standard ---
Standard Progress Note Progress Notes/Assess & Plan Date Seen by Provider: Jun 23, 2018 Time Seen by Provider: 05:45 Progress/Assessment & Plan Has been difficult to motivate. has walked minimally. 06/22/18 06/22/18 06/22/18 06/23/18 20:02 23:22 23:58 03:35 Temp 97.5 98.1 98.6 Pulse 57 65 61 Resp 16 18 16 B/P (MAP) 92/61 (71) 89/54 (66) 90/55 (67) Pulse Ox 99 95 95 O2 Delivery Room Air Nasal Cannula Room Air Room Air O2 Flow Rate 2.00 06/23/18 00:00 Intake Total 3800 ml Output Total 600 ml Balance 3200 ml Laboratory Tests Test 06/22/18 06:15 06/23/18 04:59 Range/Units Urine Test NEGATIVE NEGATIVE TABATHA GARCIA DO Jun 23, 2018 05:47
[2018-06-23 05:59] LABS: BUN/CREATININE RATIO 11; CARBON DIOXIDE 22 MMOL/L (21-32); CHLORIDE 108 MMOL/L (98-107); CREATININE SERUM 0.96 MG/DL (0.60-1.30); GFR ESTIMATED > 60; GLUCOSE 141 MG/DL (70-105); POTASSIUM 3.8 MMOL/L (3.6-5.0); SODIUM 138 MMOL/L (135-145)
--- NOTE | 2018-06-23 07:09 | Anesthesia-General Post-Op ---
General Patient Condition Mental Status/LOC: Same as Preop Cardiovascular: Satisfactory Nausea/Vomiting: Absent Respiratory: Satisfactory Pain: Controlled Complications: Absent Post Op Complications Complications None Follow Up Care/Instructions Patient Instructions None needed. Anesthesia/Patient Condition Patient Condition Patient is doing well, no complaints, stable vital signs, no apparent adverse anesthesia problems. No complications reported per nursing. D/C home per [facility] Criteria: No THOMAS GIBSON CRNA Jun 23, 2018 07:09
[2018-06-23 08:00] VITALS: BP 98/64
[2018-06-23] MEDS ORDERED: FUROSEMIDE 20 MG (LASIX) TAB PO NR (08:45)
[2018-06-23] MEDS ORDERED: KETOROLAC 30 MG/ML VIAL IVP NR (08:45)
[2018-06-23] MEDS ORDERED: DOCU100C37 PO (08:50)
[2018-06-23] MEDS ORDERED: SIME80TA16 PO (08:50)
[2018-06-23] MEDS ORDERED: OXYC-465 PO (08:50)
--- NOTE | 2018-06-23 08:53 | Discharge Inst-Women's Service ---
Discharge Inst-Women's Serv Depart Medication/Instructions New, Converted or Re-Newed RX: RX on Chart Instructions no lifting over 25 lbs nothing per vagina no driving for 7 days Final Diagnosis genital prolapse, incomplete JAYDEN cystocele Consults/Follow Up Additional Follow Up: Yes (1 week with Samanta Degroot and 10-12 weeks with [facility]) Activity Activity: Activity as Tolerated (see above) Driving Instructions: No Driving for 1 Week NO SMOKING: NO SMOKING Nothing Inside Vagina: No Douching, No [place], No Tampons Diet Discharge Diet: No Restrictions Symptoms to Report to : Bleeding Excessive, Pain Increased, Fever Over 101 Degrees F, Vaginal Bleeding Increase, Cramps in Feet or Legs, Vaginal Discharge Foul For Any Problems or Questions: Contact Your Physician Skin/Wound Care Infection Signs and Symptoms: Increased Redness, Foul Odor of Wound, Increased Drainage, Skin Itchy or Has a Rash, Increased Swelling, Temperature Above 101 F Operative Area Clean and Dry: You May Remove Bandage (remove in 3 days or if soiled or wet) Stitches/Ken[place]/Dermabond: Dermabond Bathing Instructions: TABATHA Heaton DO Jun 23, 2018 08:53
[2018-06-23 12:00] VITALS: BP 104/77
[2018-06-23 16:00] VITALS: BP 106/74
== END 2018-06-23 16:25 | disposition home or self-care (01) ==
LOC: SDC 06:10 → WS 11:41 → SDC 06-23 16:25
PROVIDERS: ATTEND Obstetrics & Gynecology
DX: N92.1 Excessive and frequent menstruation with irregular cycle (principal); N94.6 Dysmenorrhea, unspecified; N80.0 Endometriosis of uterus; N83.12 Corpus luteum cyst of left ovary; N83.201 Unspecified ovarian cyst, right side; N83.8 Other noninflammatory disorders of ovary, fallopian tube and broad ligament; N39.3 Stress incontinence (female) (male); N81.5 Vaginal enterocele; L72.0 Epidermal cyst; J45.909 Unspecified asthma, uncomplicated; F17.210 Nicotine dependence, cigarettes, uncomplicated; N18.3 Chronic kidney disease, stage 3 (moderate)
CPT/HCPCS: 36415; 80048; 84703; 86850; 86900; 86901; 94664

== ENCOUNTER 2018-06-28 17:34 | Emergency (ER) | payer MEDICAID ==
[~2018-06-28] VITALS: Ht 167.6 cm; Wt 72.6 kg
[~2018-06-28 17:34] MED LIST changes: +DOCU100C37 PO; +SIME80TA16 PO
--- NOTE | 2018-06-28 19:13 | ED Abdominal Pain ---
General Chief Complaint: Abdominal/GI Problems Stated Complaint: POST OP/FEVER/PAIN Nursing Triage Note: pt presents to ed with complaints of lower pelvic and genital pain since hysterectomy 06/22/[address] Garcia. Pt reports fever around 101 the past three days along with decreased appetite. pt reports she also ran out of percocet today. Sepsis Screen: No Definite Risk Source of Information: Patient Exam Limitations: No Limitations History of Present Illness Date Seen by Provider: Jun 28, 2018 Time Seen by Provider: 19:11 Initial Comments To ER per private vehicle with diffuse abdominal pain, fevers. She had a robotic -assisted laparoscopic transvaginal hysterectomy and bladder sling on 06/22/18. She reports nausea but no vomiting. 2 days ago on Thursday she developed fever around 101. She ran out of Percocet this morning. She does report urinary hesitancy and trouble maintaining a stream. She did have a 28 day supply of oxycodone filled at [facility] on 06/11/18 and a 7 day supply on 06/23/18 Timing/Duration: 2-3 Days Severity/Quality: Moderate Location: Suprapubic Radiation: No Radiation Activities at Onset: None Associated Symptoms: Fever/Chills, Nausea/Vomiting Allergies and Home Medications Allergies Coded Allergies: metronidazole (Verified Allergy, Unknown, NAUSEA, 06/09/18) morphine (Verified Allergy, Unknown, SEVERE N/V, 04/27/17) prednisone (Verified Adverse Reaction, Mild, 04/27/17) Sulfa (Sulfonamide Antibiotics) (Verified Adverse Reaction, Unknown, DECREASE KIDNEY FUNCTION, 04/27/17) Home Medications Cefuroxime Axetil 500 Mg Tablet, 500 MG PO BID Prescribed by: HERRERA AGUILERA on 06/28/181942 Diazepam 5 Mg Tablet, 5 MG PO HS PRN for ANXIETY, (Reported) Docusate Sodium 100 Mg Capsule, 100 MG PO BID PRN for CONSTIPATION-1ST LINE Prescribed by: TABATHA GARCIA on 06/23/18 0850 Furosemide 20 Mg Tablet, 20 MG PO DAILY, (Reported) Linaclotide 290 Mcg Capsule, 290 MG PO DAILY, (Reported) Naloxegol Oxalate 25 Mg Tablet, 25 MG PO DAILY, (Reported) Oxycodone HCl/Acetaminophen 1 Each Tablet, 1 TAB PO Q6H Prescribed by: TABATHA GARCIA on 06/23/18 0850 Phenazopyridine HCl 100 Mg Tablet, 100 MG PO TID Prescribed by: HERRERA AGUILERA on 06/28/18 194 Simethicone 80 Mg Tab.chew, 40 MG PO TID PRN for INDIGESTION Prescribed by: TABATHA GARCIA on 06/23/18 0850 Zolpidem Tartrate 10 Mg Tablet, 10 MG PO HS, (Reported) Patient Home Medication List Home Medication List Reviewed: Yes Review of Systems Constitutional: see HPI, chills, fever EENTM: No Symptoms Reported Respiratory: No Symptoms Reported; Denies Cough, Denies Shortness of Air Cardiovascular: No Symptoms Reported Gastrointestinal: See HPI, Abdominal Pain, Constipated; Denies Diarrhea; Nausea ; Denies Vomiting Genitourinary: No Symptoms Reported Musculoskeletal: no symptoms reported Skin: no symptoms reported Psychiatric/Neurological: No Symptoms Reported Endocrine: No Symptoms Reported Past Pakyxqg-Xnzshl-Cifycv Hx Patient Social History Alcohol Use: Occasionally Uses Recreational Drug Use: No Smoking Status: Former Smoker Former Smoker, Quit: Mar 03, 2014 Recent Foreign Travel: No Contact w/Someone Who Travel: No Recent Infectious Disease Expo: No Recent Hopitalizations: No Immunizations Up To Date Tetanus Booster (TDap): Less than 5yrs Seasonal Allergies Seasonal Allergies: Yes Past Medical History Surgeries: Yes ( X2, NECK FUSION, HEMORRHOIDECTOMY, ) Appendectomy, Hysterectomy, Tonsillectomy Respiratory: Yes (NO ACUTE SINCE 2014) Asthma Cardiac: No Neurological: No (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) Reproductive Disorders: No Female Reproductive Disorders: Denies, Endometriosis [employer] History: IUD Sexually Transmitted Disease: No HIV/AIDS: Yes Genitourinary: Yes (STAGE 3 KIDNEY DISEASE, HEMATURIA) Renal Failure Gastrointestinal: Yes Gastroesophageal Reflux, Chronic Constipation, Hemorrhoids, Ulcer, Irritable Bowel Musculoskeletal: Yes Arthritis Endocrine: No HEENT: No Loss of Vision: Denies Hearing Impairment: Denies Cancer: No Psychosocial: Yes Anxiety, Depression Integumentary: Yes (GETS HIVES FREQUENTLY) Blood Disorders: Yes (ANEMIA) Adverse Reaction/Blood Tranf: No (N/A) Family Medical History Arthritis 19 MOTHER G8 BROTHER Asthma 19 FATHER 19 MOTHER Cardiovascular disease 19 MOTHER FH: bladder cancer 19 FATHER Kidney disease 19 MOTHER Respiratory disorder 19 MOTHER (copd) No Pertinent Family Hx Physical Exam Vital Signs Vital Signs - First Documented 06/28/18 18:02 Temp 98.7 Pulse 107 Resp 16 B/P (MAP) 103/72 (82) Pulse Ox 100 Capillary Refill : Less Than 3 Seconds Height/Weight/BMI Height: 5'6.00" Weight: 160lbs. 0.0oz. [id number]; 26.5 BMI Method:Stated General Appearance: WD/WN, no apparent distress HEENT: PERRL/EOMI, normal ENT inspection Neck: non-tender, full range of motion Respiratory: no respiratory distress, no accessory muscle use Cardiovascular: regular rate, rhythm, no murmur Gastrointestinal: normal bowel sounds, non tender, soft, other (abdominal incisions are clean and intact. There is a more superior incision, but is clean dry and intact. Both of the lower abdominal incisions have a very scant amount of serosanguineous-type drainage onto the overlying gauze dressing. There is no erythema surrounding the incisions.) Extremities: normal range of motion, non-tender Neurologic/Psychiatric: alert, normal mood/affect, oriented x 3 Skin: normal color, warm/dry Progress/Results/Core Measures Results/Orders Lab Results Laboratory Tests Test 06/28/18 15:06 06/28/18 18:55 Range/Units White Blood Count 8.2 4.3-11.0 10^3/uL Red Blood Count 4.16 L 4.35-5.85 10^6/uL Hemoglobin 12.8 11.5-16.0 G/DL Hematocrit 38 35-52 % Mean Corpuscular Volume 92 80-99 FL Mean Corpuscular Hemoglobin 31 25-34 PG Mean Corpuscular Hemoglobin Concent 34 32-36 G/DL Red Cell Distribution Width 12.0 10.0-14.5 % Platelet Count 259 130-400 10^3/uL Mean Platelet Volume 11.3 H 7.4-10.4 FL Neutrophils (%) (Auto) 67 42-75 % Lymphocytes (%) (Auto) 17 12-44 % Monocytes (%) (Auto) 11 0-12 % Eosinophils (%) (Auto) 4 0-10 % Basophils (%) (Auto) 0 0-10 % Neutrophils # (Auto) 5.6 1.8-7.8 X 10^3 Lymphocytes # (Auto) 1.4 1.0-4.0 X 10^3 Monocytes # (Auto) 0.9 0.0-1.0 X 10^3 Eosinophils # (Auto) 0.4 H 0.0-0.3 10^3/uL Basophils # (Auto) 0.0 0.0-0.1 10^3/uL Sodium Level 139 135-145 MMOL/L Potassium Level 3.8 3.6-5.0 MMOL/L Chloride Level 105 98-107 MMOL/L Carbon Dioxide Level 26 21-32 MMOL/L Anion Gap 8 5-14 MMOL/L Blood Urea Nitrogen 12 7-18 MG/DL Creatinine 1.10 0.60-1.30 MG/DL Estimat Glomerular Filtration Rate 55 BUN/Creatinine Ratio 11 Glucose Level 89 70-105 MG/DL Calcium Level 9.1 8.5-10.1 MG/DL Total Bilirubin 0.9 0.1-1.0 MG/DL Aspartate Amino Transf (AST/SGOT) 18 5-34 U/L Alanine Aminotransferase (ALT/SGPT) 16 0-55 U/L Alkaline Phosphatase 51 40-136 U/L Total Protein 7.4 6.4-8.2 GM/DL Albumin 4.0 3.2-4.5 GM/DL Urine Color YELLOW Urine Clarity CLEAR Urine pH 5 5-9 Urine Specific [place] 1.020 1.016-1.022 Urine Protein 1+ H NEGATIVE Urine Glucose (UA) NEGATIVE NEGATIVE Urine Ketones NEGATIVE NEGATIVE Urine Nitrite NEGATIVE NEGATIVE Urine Bilirubin NEGATIVE NEGATIVE Urine Urobilinogen 8 H NORMAL MG/DL Urine Leukocyte Esterase 3+ H NEGATIVE Urine RBC (Auto) 2+ H NEGATIVE Urine RBC 2-5 H /HPF Urine WBC 25-50 H /HPF Urine Squamous Epithelial Cells 10-25 H /HPF Urine Crystals NONE /LPF Urine Bacteria FEW H /HPF Urine Casts NONE /LPF Urine Mucus SMALL H /LPF Urine Trichomonas FEW H /HPF Urine Culture Indicated YES My Orders Orders - HERRERA AGUILERA APRN Ua Culture If Indicated (06/28/18 18:34) Cbc With Automated Diff (06/28/18 18:34) Comprehensive Metabolic Panel (06/28/18 18:34) Iv Heplock-Insert (Order) (06/28/18 18:34) Fentanyl Injection (Sublimaze Injection (06/28/18 19:15) Ct Abdomen/Pelvis Wo (06/28/18 19:09) Urine Culture (06/28/18 18:55) Ondansetron Injection (Zofran Injectio (06/28/18 19:45) Ceftriaxone Injection (Rocephin Injectio (06/28/18 19:45) Medications Given in ED Current Medications Medications Dose Ordered Sig/Marko Route Start Time Stop Time Status Last Admin Dose Admin Fentanyl Citrate 50 mcg ONCE ONCE IVP 06/28/18 19:15 06/28/18 19:16 DC 06/28/18 19:18 50 MCG Vital Signs/I&O 06/28/18 18:02 Temp 98.7 Pulse 107 Resp 16 B/P (MAP) 103/72 (82) Pulse Ox 100 Blood Pressure Mean: 82 Diagnostic Imaging Diagonstic Imaging: CT Comments NAME: ERIC [facility] REC#: [id number] PT STATUS: REG ER : 1980 PHYSICIAN: HERRERA AGUILERA APRN ADMIT DATE: 06/28/18/ER Draft Date of Exam:06/28/18 CT ABDOMEN/PELVIS WO PROCEDURE: CT abdomen and pelvis without contrast. TECHNIQUE: Multiple contiguous axial images were obtained through the abdomen and pelvis without the use of intravenous contrast. INDICATION: Recent hysterectomy. Lower abdominal pain with nausea, vomiting and diarrhea. Fever. COMPARISON is made to CT study from 03/23/2018. FINDINGS: The lung bases appear clear without infiltrate or evident effusion. The liver demonstrates no evidence of a focal intrahepatic abnormality. The gallbladder is nondistended without radiodense gallstone. Pancreas demonstrates no abnormality. The spleen is normal in size. There is no adrenal mass. The kidneys appear nonobstructed. The small and large bowel appear normal in caliber without evidence to suggest obstruction. There are operative changes of hysterectomy. There are prior chain sutures demonstrated within the distal rectum. There has been a previous appendectomy. There is abnormal induration demonstrated throughout the fat within the pelvis. This may reflect a postoperative edema or blood products. Superimposed infection could not be excluded in this clinical setting. The urinary bladder demonstrates gas presumably related to recent catheterization. There is no evidence of free air. There is no focal encapsulated abscess. IMPRESSION: 1. Diffuse induration and fluid demonstrated within the pelvis. This may reflect postoperative edema but a small volume of associated blood products could not be excluded. There is no free air. There is no encapsulated abscess demonstrated but a superimposed infectious process in the setting of fever could not be excluded. 2. Prior operative changes involving the rectum and a previous appendectomy. There is no bowel obstruction. 3. Otherwise unremarkable noncontrast appearance of the abdomen and pelvis. The gas within the urinary bladder is presumed to be related to recent urinary bladder catheterization. Dictated on workstation # [id number] Dict: 06/28/181940 Trans: 06/28/181948 [facility] [id number] Interpreted by: COLETTE WALKER MD Electronically signed by: Departure Impression Primary Impression: Postoperative abdominal pain Disposition: HOME, SELF-CARE Condition: Stable Departure-Patient Inst. Decision time for Depature: 19:41 [place]: [facility] [place] Primary Care Physician FLORENCIA HINOJOSA (Family) Primary Care Physician Patient Instructions: Postoperative Pain (DC), Trichomoniasis, Urinary Tract Infection, Adult (DC) Add. Discharge Instructions: 1. Take medication as directed--antibiotics as directed for the UTI. Follow up with your doctor for treatment of the Trichomonas since you are allergic to metronidazole (flagyl) since that is the preferred treatment for this. 2. All discharge instructions reviewed with patient and/or family. Voiced understanding. Scripts Phenazopyridine HCl (Pyridium) 100 Mg Tablet 100 MG PO TID, #21 TAB Prov: HERRERA AGUILERA APRN 06/28/18 Cefuroxime Axetil (Cefuroxime) 500 Mg Tablet 500 MG PO BID, #10 TAB Prov: HERRERA AGUILERA APRN 06/28/18 Copy Copies To 1: TABATHA GARCIA PETER J APRN Jun 28, 2018 19:13
[2018-06-28] MEDS ORDERED: fentaNYL INJECTION 100 MCG/2 ML AMP IVP ONE ×2 (19:15→20:49)
[2018-06-28 19:16] LABS: BASOPHILS % (AUTO) 0 % (0-10); EOSINOPHILS # (AUTO) 0.4 10^3/uL (0.0-0.3); EOSINOPHILS % (AUTO) 4 % (0-10); HEMATOCRIT 38 % (35-52); HEMOGLOBIN 12.8 G/DL (11.5-16.0); LYMPHOCYTES # (AUTO) 1.4 X 10^3 (1.0-4.0); LYMPHOCYTES % (AUTO) 17 % (12-44); MEAN CORPUSCULAR HEMOGLOBIN 31 PG (25-34); MEAN CORPUSCULAR HGB CONC 34 G/DL (32-36); MEAN CORPUSCULAR VOLUME 92 FL (80-99); MEAN PLATELET VOLUME 11.3 FL (7.4-10.4); MONOCYTES # (AUTO) 0.9 X 10^3 (0.0-1.0); MONOCYTES % (AUTO) 11 % (0-12); NEUTROPHILS # (AUTO) 5.6 X 10^3 (1.8-7.8); NEUTROPHILS % (AUTO) 67 % (42-75); PLATELET COUNT 259 10^3/uL (130-400); RED BLOOD COUNT 4.16 10^6/uL (4.35-5.85); WHITE BLOOD COUNT 8.2 10^3/uL (4.3-11.0)
[2018-06-28 19:17] LABS: BILIRUBIN,URINE NEGATIVE (NEGATIVE); CLARITY,URINE CLEAR; COLOR,URINE YELLOW; GLUCOSE, URINE (UA) NEGATIVE (NEGATIVE); KETONES,URINE NEGATIVE (NEGATIVE); LEUKOCYTE ESTERASE ,URINE 3+ (NEGATIVE); NITRITE,URINE NEGATIVE (NEGATIVE); PH,URINE 5 (5-9); PROTEIN,URINE 1+ (NEGATIVE); UROBILINOGEN,URINE 8 MG/DL (NORMAL)
[2018-06-28 19:25] LABS: BACTERIA,URINE FEW /HPF; WBC,URINE 25-50 /HPF
[2018-06-28 19:26] LABS: TRICHOMONAS,URINE FEW /HPF
[2018-06-28 19:42] LABS: BILIRUBIN,TOTAL 0.9 MG/DL (0.1-1.0); CALCIUM 9.1 MG/DL (8.5-10.1); CREATININE SERUM 1.1 MG/DL (0.60-1.30); POTASSIUM 3.8 MMOL/L (3.6-5.0); TOTAL PROTEIN 7.4 GM/DL (6.4-8.2)
[2018-06-28] MEDS ORDERED: CEFU500T63 PO (19:43)
[2018-06-28] MEDS ORDERED: PHEN-639 PO (19:44)
[2018-06-28] MEDS ORDERED: ONDANSETRON 4 MG/2 ML (SDV) Z0FRAN IVP ONE (19:45)
[2018-06-28] MEDS ORDERED: cefTRIAXone INJECTION 1,000 MG in NS (IVPB) 50 ML IV ONE (19:45)
--- NOTE | 2018-06-28 19:50 | Diagnostic Imaging Report ---
PROCEDURE: CT abdomen and pelvis without contrast. TECHNIQUE: Multiple contiguous axial images were obtained through the abdomen and pelvis without the use of intravenous contrast. INDICATION: Recent hysterectomy. Lower abdominal pain with nausea, vomiting and diarrhea. Fever. COMPARISON is made to CT study from 03/23/2018. FINDINGS: The lung bases appear clear without infiltrate or evident effusion. The liver demonstrates no evidence of a focal intrahepatic abnormality. The gallbladder is nondistended without radiodense gallstone. Pancreas demonstrates no abnormality. The spleen is normal in size. There is no adrenal mass. The kidneys appear nonobstructed. The small and large bowel appear normal in caliber without evidence to suggest obstruction. There are operative changes of hysterectomy. There are prior chain sutures demonstrated within the distal rectum. There has been a previous appendectomy. There is abnormal induration demonstrated throughout the fat within the pelvis. This may reflect a postoperative edema or blood products. Superimposed infection could not be excluded in this clinical setting. The urinary bladder demonstrates gas presumably related to recent catheterization. There is no evidence of free air. There is no focal encapsulated abscess. IMPRESSION: 1. Diffuse induration and fluid demonstrated within the pelvis. This may reflect postoperative edema but a small volume of associated blood products could not be excluded. There is no free air. There is no encapsulated abscess demonstrated but a superimposed infectious process in the setting of fever could not be excluded. 2. Prior operative changes involving the rectum and a previous appendectomy. There is no bowel obstruction. 3. Otherwise unremarkable noncontrast appearance of the abdomen and pelvis. The gas within the urinary bladder is presumed to be related to recent urinary bladder catheterization. Dictated by: Dictated on workstation # [id number]
[2018-06-28] MEDS ORDERED: metroNIDAZOLE 500MG/100ML IVPB 100 ML IV ONE (20:00)
[2018-06-28 20:54] VITALS: BP 105/68
== END 2018-06-28 20:55 | disposition home or self-care (01) ==
LOC: EDUNIT# 17:34 → ER 17:35
DX: G89.18 Other acute postprocedural pain (principal); R10.84 Generalized abdominal pain; J45.909 Unspecified asthma, uncomplicated; N18.3 Chronic kidney disease, stage 3 (moderate); K21.9 Gastro-esophageal reflux disease without esophagitis; F41.9 Anxiety disorder, unspecified; F32.9 Major depressive disorder, single episode, unspecified; D64.9 Anemia, unspecified; Z87.19 Personal history of other diseases of the digestive system; Z97.5 Presence of (intrauterine) contraceptive device; Z90.710 Acquired absence of both cervix and uterus; Z96.0 Presence of urogenital implants; Z88.8 Allergy status to other drugs, medicaments and biological substances; Z88.2 Allergy status to sulfonamides; Z88.5 Allergy status to narcotic agent; Z87.891 Personal history of nicotine dependence; Z90.89 Acquired absence of other organs
CPT/HCPCS: 36415; 74176; 80053; 81000; 85025; 87088; 96365; 96367; 96375; 96376

== ENCOUNTER → 2018-07-28 | Outpatient (CLI) | payer MEDICAID ==
[~2018-07-28] MED LIST changes: +CEFU500T63 PO; -OXYC-197 PO; +OXYC1TAB87 PO; +PHEN-639 PO
--- NOTE | 2018-07-28 16:05 | Diagnostic Imaging Report ---
PROCEDURE: MR imaging of the brain without contrast. TECHNIQUE: Multiplanar, multisequence MR imaging of the brain was performed without contrast. INDICATION: Pineal gland cyst. COMPARISON: Comparison is made with outside MRI of the brain from 05/11/2017. FINDINGS: No diffusion restriction is identified to suggest acute ischemia. The normal expected flow-voids within the carotid siphons are seen. Ventricular size and sulcal pattern are stable. Moderate paranasal sinus disease is seen with mucosal thickening and fluid in bilateral maxillary sinuses. Mucosal thickening of the sphenoid, ethmoid air cells and frontal sinus. No midline shift is identified. No acute intra-axial or extra-axial hemorrhage is detected. Corpus callosum is unremarkable. The sella and parasellar structures are unremarkable. The size and appearance of the pineal gland is similar to prior exam. Tiny cystic structures within the pineal gland are similar to prior study. Pineal measures approximately 11 mm x 11 mm, unchanged from prior when measured by the same technique. IMPRESSION: Overall stable noncontrast MRI of the brain when compared with prior exam from 05/11/2017. Dictated by: Dictated on workstation # [id number]
== END ==
LOC: RAD 13:06
PROVIDERS: ATTEND Nurse Practitioner Community Health
DX: E34.8 Other specified endocrine disorders (principal); R25.1 Tremor, unspecified; R41.3 Other amnesia; G43.019 Migraine without aura, intractable, without status migrainosus
CPT/HCPCS: 70551

== ENCOUNTER → 2018-10-13 | Outpatient (CLI) | payer MEDICAID ==
[~2018-10-13] MED LIST changes: +DICY10CA12 PO; +HYOS0.1283 SL; +ONDN4T PO; +SUCR1TAB36 PO
[2018-10-13 16:24] LABS: BASOPHILS % (AUTO) 1 % (0-10); EOSINOPHILS # (AUTO) 0.3 10^3/uL (0.0-0.3); EOSINOPHILS % (AUTO) 4 % (0-10); HEMATOCRIT 39 % (35-52); HEMOGLOBIN 13.1 G/DL (11.5-16.0); LYMPHOCYTES % (AUTO) 32 % (12-44); MEAN CORPUSCULAR HEMOGLOBIN 31 PG (25-34); MEAN CORPUSCULAR HGB CONC 33 G/DL (32-36); MEAN CORPUSCULAR VOLUME 92 FL (80-99); MEAN PLATELET VOLUME 10.8 FL (7.4-10.4); MONOCYTES # (AUTO) 0.4 X 10^3 (0.0-1.0); MONOCYTES % (AUTO) 6 % (0-12); NEUTROPHILS # (AUTO) 3.6 X 10^3 (1.8-7.8); NEUTROPHILS % (AUTO) 58 % (42-75); PLATELET COUNT 237 10^3/uL (130-400); RED BLOOD COUNT 4.25 10^6/uL (4.35-5.85); RED CELL DISTRIBUTION WIDTH 12.1 % (10.0-14.5); WHITE BLOOD COUNT 6.2 10^3/uL (4.3-11.0)
[2018-10-13 16:31] LABS: BILIRUBIN,URINE NEGATIVE (NEGATIVE); CLARITY,URINE CLEAR; COLOR,URINE YELLOW; GLUCOSE, URINE (UA) NEGATIVE (NEGATIVE); KETONES,URINE NEGATIVE (NEGATIVE); LEUKOCYTE ESTERASE ,URINE NEGATIVE (NEGATIVE); NITRITE,URINE NEGATIVE (NEGATIVE); PH,URINE 6 (5-9); PROTEIN,URINE NEGATIVE (NEGATIVE); UROBILINOGEN,URINE NORMAL (NORMAL)
[2018-10-13 16:47] LABS: ALBUMIN 4.3 GM/DL (3.2-4.5); CALCIUM 8.8 MG/DL (8.5-10.1); CREATININE SERUM 1.17 MG/DL (0.60-1.30); PHOSPHORUS 3.1 MG/DL (2.3-4.7); POTASSIUM 3.8 MMOL/L (3.6-5.0)
== END ==
LOC: LAB 16:06
PROVIDERS: ATTEND Internal Medicine Nephrology
DX: N18.3 Chronic kidney disease, stage 3 (moderate) (principal); D64.9 Anemia, unspecified
CPT/HCPCS: 36415; 80069; 81000; 82570; 84156; 85025

== ENCOUNTER 2018-10-18 19:21 | Emergency (ER) | payer MEDICAID ==
[~2018-10-18] VITALS: Ht 167.6 cm; Wt 72.6 kg
[~2018-10-18 19:21] MED LIST changes: -DICY10CA12 PO; -HYOS0.1283 SL; -ONDN4T PO; -SUCR1TAB36 PO
--- OUTSIDE RECORDS SUMMARY | 2018-10-18 19:28 | XMS REPORT | Encounter Summary ---
Author Author [facility] Organization [facility] Address Unknown Phone Unavailable Care Team Providers Care Quitline Counselor Name Role Phone Loy Winter APRN PCP Encounter Details Date Type Department Care Team Description 10/12/2018 Hospital [facility] Camron Mortensen MD Arrived Encounter [facility] 1st fl [address] [place] [address] [place] [address] [phone] Social History Tobacco Use Types Packs/Day Years Used Date Former Smoker Smokeless Tobacco: Never Used Alcohol Use Drinks/Week oz/Week Comments Yes Sex Assigned at Date Recorded Not on file as of this encounter Medications at Time of Discharge Medication Sig. Disp. Refills Start Date End Date cyanocobalamin (VITAMIN Take 2,000 mcg by mouth B-12) 500 mcg tablet daily. diazePAM (VALIUM) 10 mg Take 5 mg by mouth daily. tablet furosemide (LASIX) 20 mg Take 20 mg by mouth every tablet morning. linaclotide(+) (LINZESS) Take 290 mcg by mouth 290 mcg capsule daily. oxycodone(+) (ROXICODONE, Take 10 mg by mouth every OXY-IR) 10 mg tablet 6 hours as needed for Pain propranolol (INDERAL) 10 Take 10 mg by mouth mg tablet daily. zolpidem (AMBIEN) 10 mg Take 10 mg by mouth at tablet bedtime as needed for Sleep. as of this encounter Plan of Treatment Not on fileas of this encounter Procedures Procedure Name Priority Date/Time Associated Diagnosis Comments FLOW CYTOMETRY 10/12/2018 Results for this 12:53 PM [employer] procedure are in the results section. SYPHILIS AB SCREEN Routine 10/12/2018 Rash Results for this 12:53 PM [employer] Lymph node enlargement procedure are in the Radiculopathy, results section. unspecified spinal region Fever, unspecified fever cause Night sweats LYME-PCR Routine 10/12/2018 Rash Results for this 12:53 PM [employer] Lymph node enlargement procedure are in the Radiculopathy, results section. unspecified spinal region Fever, unspecified fever cause Night sweats CHARLINE MT SPOTTED FEVER AB Routine 10/12/2018 Rash Results for this IGG&IGM 12:53 PM [employer] Lymph node enlargement procedure are in the Radiculopathy, results section. unspecified spinal region Fever, unspecified fever cause Night sweats LEUKEMIA-LYMPHOMA PANEL Routine 10/12/2018 Rash Results for this BLOOD 12:53 PM [employer] Lymph node enlargement procedure are in the Radiculopathy, results section. unspecified spinal region Fever, unspecified fever cause Night sweats BRUCELLA ANTIBODY IGG IGM Routine 10/12/2018 Rash Results for this 12:53 PM [employer] Lymph node enlargement procedure are in the Radiculopathy, results section. unspecified spinal region Fever, unspecified fever cause Night sweats BARTONELLA AB PANEL IGG Routine 10/12/2018 Rash Results for this IGM 12:53 PM [employer] Lymph node enlargement procedure are in the Radiculopathy, results section. unspecified spinal region Fever, unspecified fever cause Night sweats SED RATE Routine 10/12/2018 Rash Results for this 12:53 PM [employer] Lymph node enlargement procedure are in the Radiculopathy, results section. unspecified spinal region Fever, unspecified fever cause Night sweats CBC AND DIFF Routine 10/12/2018 Rash Results for this 12:53 PM [employer] Lymph node enlargement procedure are in the Radiculopathy, results section. unspecified spinal region Fever, unspecified fever cause Night sweats C REACTIVE PROTEIN (CRP) Routine 10/12/2018 Rash Results for this 12:53 PM [employer] Lymph node enlargement procedure are in the Radiculopathy, results section. unspecified spinal region Fever, unspecified fever cause Night sweats in this encounter Results * FLOW CYTOMETRY (10/12/2018 12:53 PM) PATHOLOGY REPORT [facility] [email or web address] Zolatn Rendon MD, Director of Flow Cytometry Laboratory Department of Pathology and Laboratory Medicine [address] [place] [id number] Surgical Pathology Office:[phone] :[phone] FLOW CYTOMETRY REPORT NAME: DIANA CINTRON SURG PATH #: [id number] MR #: [id number] SPECIMEN CLASS: LC BILLING #: [id number] ALT ID #:LOCATION: [facility] DATE OF PROCEDURE: 10/12/2018 AGE:38 SEX: F DATE RECEIVED: 10/12/2018 : 1980TIME RECEIVED:15:01 PHYSICIAN: LLOYD MORTENSEN DATE OF REPORT: 10/13/2018 COPY TO:DATE OF PRINTIN10/13/2018 Material Received: A: Blood Peripheral History: 38 year old female ############################## ############################## ############ Final Diagnosis: Blood, flow cytometry:Negative immunophenotypic study Interpretation: Myeloid blasts comprise 0.02% of total events.There is no immunophenotypic evidence of acute myeloid leukemia. Granulocytes show normal antigen expression.There is no immunophenotypic evidence of myelodysplastic syndrome. Lymphocytes comprise 23% of total events.The majority are T cells with a normal CD4:CD8 ratio and normal antigen expression.B cells are polyclonal with normal antigen expression.There is no immunophenotypic evidence of non-Hodgkin lymphoma. Attestation: By this signature, I attest that I have personally formulated the final interpretation expressed in this report and that the above diagnosis is based upon my examination of the slides and/or other material indicated in this report. +++Electronically Signed Out By+++ bt/10/12/2018 Interpreted by: Song Hinojosa MD 10/13/2018 ############################## ############################## ############ Lab Data: Flow Cytometry - Screen Panel Acute Myeloid Leukemia Screen GATED ON CD45 DIM POPULATION: Myeloid Associated Markers (% Positive Cells): MZ80u=83; CD13=46; CD33=43; VJ175=2 Miscellaneous Markers (% Positive Cells): CD34=8; CD45=52; HLA-DR=13 Granulocyte Associated Markers (% Positive Cells): CD16=97 Lymphoma (B and T Cell) MRD Panel GATED ON LYMPHOCYTE POPULATION: B Cell Associated Markers (% Positive Cells): CD19=5; CD19+CD5+=0; CD20=4; Isabel=3; Lambda=2; Isabel:Lambda ratio=1.7 T Cell Associated Markers (% Positive Cells): CD2=90; CD3=80; CD4=60; CD5=79; CD7=87; CD8=21 CD4:CD8 ratio=3.3 Miscellaneous Markers (% Positive Cells): CD10=0; CD38=34; TZ60=716; CD56=12 Cell Viability (%): n/a Number of Cells Analyzed:500,000 Total Number of Markers: 21 Summary of Marker Combinations: Isabel/Lambda/5/19/38/45/10/20; 2/7/5/3/4/45/56/8; 34/117/33/13/11b/45/Dr/16 This test was developed and its performance characteristics determined by the [facility] Flow Cytometry Laboratory.It has not been cleared or approved by the U.S. Food and Drug Administration (FDA).The FDA has determined that such clearance or approval is not necessary. Performing Organization Address City/State/Zipcode Phone Number [facility] RESULTS * BARTONELLA AB PANEL IGG IGM (10/12/2018 12:53 PM) Bartenalla Henselae IGG <1:128 REFERENCE LAB Reference range: <1:128 Unit: titer [facility] [employer], [address] [place] [address] Bartonella Henselae IGM <1:20 REFERENCE LAB Titer Reference range: <1:20 Unit: titer [facility], [address] [place] [id number] B.Chang IgG <1:128 REFERENCE LAB Reference range: <1:128 Unit: titer [facility], [address] [place] [address] B.Chang IgM <1:20 RE[facility]ENCE LAB Reference range: <1:20 Unit: titer ADDITIONAL INFORMATION This test was developed and its performance characteristics determined by [facility] in a manner consistent with CLIA requirements. This test has not been cleared or approved by the U.S. Food and Drug Administration. [facility], [address] [place] [id number] Specimen Blood Performing Organization Address City/[facility]/Zipcode Phone Number REFERENCE LAB REFERENCE LAB See results for address. * BRUCELLA ANTIBODY IGG IGM (10/12/2018 12:53 PM) Brucella Ab IgG Negative [facility] Reference range: Negative [facility], [address] [place] [address] Brucella Ab IgM Negative REFERENCE LAB Reference range: Negative [facility], [address] [place] [id number] Interpretation Recommend repeat testing in REFERENCE LAB 14-21 days if recent infection is suspected. [facility], [address] [place] [address] Specimen Blood Performing Organization Address [facility] Phone Number REFERENCE LAB REFERENCE LAB See results for address. * [facility] SPOTTED FEVER AB IGG&IGM (10/12/2018 12:53 PM) [facility] Spot Fever IgM <1:64 REFERENCE LAB Reference range: <1:64 No antibody detected. [facility], [address] [place] [id number] [place] [address] Spot Fever IgG <1:64 REFERENCE LAB Reference range: <1:64 No antibody detected. [facility], [address] [place] [id number] Specimen Blood Performing Organization Address City/[facility]/Zipcode Phone Number REFERENCE LAB REFERENCE LAB See results for address. * SYPHILIS AB SCREEN (10/12/2018 12:53 PM) Syphilis AB, Total NEG NEG-NEG [facility] Comment: Negative EIA: Negative results indicate no past or present syphilis infection. Early infection can not be excluded. Specimen Blood Performing Organization Address City/State/Zipcode Phone Number [facility] [address] [place] [address] * LYME-PCR (10/12/2018 12:53 PM) B. Burgdorferi PCR Negative REFERENCE LAB Reference range: Negative [facility] B Mayonii Negative REFERENCE LAB Reference range: Negative [facility] B. Garinii/B. Afzelii PCR Negative REFERENCE LAB Reference range: Negative [facility] Lyme Disease Comment A negative result does not REFERENCE LAB Blood exclude infection with Borrelia burgdorferi. Serologic testing as per CDC guidelines may be indicated. ADDITIONAL INFORMATION This test was developed and its performance characteristics determined by [facility] in a manner consistent with CLIA requirements. This test has not been cleared or approved by the U.S. Food and Drug Administration. [facility] Specimen Blood Performing Organization Address [facility] Phone Number REFERENCE LAB REFERENCE LAB See results for address. * LEUKEMIA-LYMPHOMA PANEL BLOOD (10/12/2018 12:53 PM) Leuk/Lymph Interpretation SEE PATHOLOGY REPORT [facility] Specimen/LLM BLOOD MAIN LAB Specimen Blood Performing Organization Address [facility] Phone Number [facility] [address] [place] [address] * C REACTIVE PROTEIN (CRP) (10/12/2018 12:53 PM) C-Reactive Protein 0.13 <1.0 MG/DL MAIN LAB Specimen Blood Performing Organization Address [facility] Phone Number [facility] [address] [place] [address] * SED RATE (10/12/2018 12:53 PM) Sed Rate -ESR 5 0 - 20 MM/HR [facility] Specimen Blood Performing Organization Address [facility] Phone Number [facility] [address] [place] [address] * CBC AND DIFF (10/12/2018 12:53 PM) White Blood Cells 7.1 4.5 - 11.0 K/UL MAIN LAB RBC 4.36 4.0 - 5.0 M/UL MAIN LAB Hemoglobin 13.7 12.0 - 15.0 GM/DL MAIN LAB Hematocrit 41.6 36 - 45 % MAIN LAB MCV 95.4 80 - 100 FL MAIN LAB MCH 31.3 26 - 34 PG MAIN LAB MCHC 32.8 32.0 - 36.0 G/DL MAIN LAB RDW 12.8 11 - 15 % [facility] Platelet Count 232 150 - 400 K/UL MAIN LAB MPV 9.4 7 - 11 FL [facility] Neutrophils 67 41 - 77 % [facility] Lymphocytes 25 24 - 44 % [facility] Monocytes 5 4 - 12 % [facility] Eosinophils 3 0 - 5 % [facility] Basophils 0 0 - 2 % [facility] Absolute Neutrophil Count 4.80 1.8 - 7.0 K/UL [facility] Absolute Lymph Count 1.70 1.0 - 4.8 K/UL [facility] Absolute Monocyte Count 0.40 0 - 0.80 K/UL [facility] Absolute Eosinophil Count 0.20 0 - 0.45 K/UL [facility] Absolute Basophil Count 0.00 0 - 0.20 K/UL [facility] Specimen Blood Performing Organization Address City/State/Zipcode Phone Number [facility] [address] [place] [address] in this encounter Visit Diagnoses Diagnosis Rash Rash and other nonspecific skin eruption Lymph node enlargement Enlargement of lymph nodes Radiculopathy, unspecified spinal region Fever, unspecified fever cause Night sweats Generalized hyperhidrosis
--- OUTSIDE RECORDS SUMMARY | 2018-10-18 19:28 | XMS REPORT | Clinical Summary ---
Author Author [facility] Organization [facility] Address Unknown Phone Unavailable Care Team Providers Care Supervising Producer Name Role Phone Loy Winter APRN PCP Source Comments Some departments are not documenting in the electronic medical record. If you do not see the information that you expected, contact Release of Information in the Health Information Management department at [phone] for further assistance in locating additional records.[facility] Allergies Active Allergy Reactions Severity Noted Date Comments Metronidazole NAUSEA AND VOMITING Low 09/03/2018 Morphine SHORTNESS OF BREATH, Medium 09/03/2018 NAUSEA AND VOMITING Prednisone NAUSEA AND VOMITING Low 09/03/2018 Sulfa (Sulfonamide UNKNOWN Low 09/03/2018 Antibiotics) Current Medications Prescription Sig. Disp. Refills Start End Date Status Date zolpidem (AMBIEN) 10 mg Take 10 mg by mouth at Active tablet bedtime as needed for Sleep. oxycodone(+) (ROXICODONE, Take 10 mg by mouth every Active OXY-IR) 10 mg tablet 6 hours as needed for Pain propranolol (INDERAL) 10 Take 10 mg by mouth Active mg tablet daily. linaclotide(+) (LINZESS) Take 290 mcg by mouth Active 290 mcg capsule daily. diazePAM (VALIUM) 10 mg Take 5 mg by mouth daily. Active tablet furosemide (LASIX) 20 mg Take 20 mg by mouth every Active tablet morning. cyanocobalamin (VITAMIN Take 2,000 mcg by mouth Active B-12) 500 mcg tablet daily. Active Problems Problem Noted Date Memory loss 09/03/2018 Encounters Date Type Specialty Care Team Description 10/12/2018 Hospital Lab Camron Mortensen MD Arrived Encounter 10/12/2018 Office Visit Neurosurgery Azar Cottrell, Rash ( Primary Dx); Lymph node enlargement; Camron Mortensen MD Radiculopathy, unspecified spinal region; Fever, unspecified fever cause; Night sweats; Other osteoarthritis of spine, cervical region 09/17/2018 Telephone Neurology Azar Cottrell, Results 09/13/2018 Hospital Radiology Azar Cottrell, Encounter 09/13/2018 Clinical Neurology Zhanna Aguilera, PhD Cervical radiculopathy Support George Galarza MD Farmakidis, Constantine, MD 09/06/2018 Telephone Neurology Azar Cottrell, Results 09/03/2018 Hospital Lab Azar Cottrell, Other amnesia Encounter 09/03/2018 Office Visit Neurology Azar Cottrell, Cervical spondylosis with radiculopathnayan (Primary Dx); Memory loss 09/03/2018 Procedure Pass Radiology from Last 3 Months Family History Medical History Relation Name Comments Cancer Brother Cancer Father Stroke Maternal Grandfather Cancer Maternal Grandmother Stroke Maternal Grandmother Neuropathy Mother Stroke Paternal Grandfather Cancer Paternal Grandmother Dementia Paternal Grandmother Stroke Paternal Grandmother Relation Name Status Comments Brother Alive Father Maternal Grandfather Maternal Grandmother Mother Alive Paternal Grandfather Paternal Grandmother Social History Tobacco Use Types Packs/Day Years Used Date Former Smoker Smokeless Tobacco: Never Used Alcohol Use Drinks/Week oz/Week Comments Yes Sex Assigned at Date Recorded Not on file Last Filed Vital Signs Vital Sign Reading Time Taken Blood Pressure 130/77 10/12/2018 11:53 AM HAND TRIMMER Pulse 125 10/12/2018 11:53 AM HAND TRIMMER Temperature - - Respiratory Rate - - Oxygen Saturation - - Inhaled Oxygen - - Concentration Weight 74.7 kg (164 lb 9.6 oz) 10/12/2018 11:53 AM HAND TRIMMER Height 167.6 cm (5' 6") 10/12/2018 11:53 AM HAND TRIMMER Body Mass Index 26.57 10/12/2018 11:53 AM HAND TRIMMER Plan of Treatment Health Maintenance Due Date Last Done Comments PHYSICAL (COMPREHENSIVE) 1986 EXAM HIV SCREENING 1994 DTAP/TDAP VACCINES ( - 1997 Tdap) CERVICAL CANCER SCREENING 2009 INFLUENZA VACCINE 06/23/2018 Procedures Procedure Name Priority Date/Time Associated Diagnosis Comments FLOW CYTOMETRY 10/12/2018 Results for this 12:53 PM HAND TRIMMER procedure are in the results section. BARTONELLA AB PANEL IGG Routine 10/12/2018 Rash Results for this IGM 12:53 PM HAND TRIMMER Lymph node enlargement procedure are in the Radiculopathy, results section. unspecified spinal region Fever, unspecified fever cause Night sweats BRUCELLA ANTIBODY IGG IGM Routine 10/12/2018 Rash Results for this 12:53 PM HAND TRIMMER Lymph node enlargement procedure are in the Radiculopathy, results section. unspecified spinal region Fever, unspecified fever cause Night sweats [place]LINE [place] SPOTTED FEVER AB Routine 10/12/2018 Rash Results for this IGG&IGM 12:53 PM HAND TRIMMER Lymph node enlargement procedure are in the Radiculopathy, results section. unspecified spinal region Fever, unspecified fever cause Night sweats SYPHILIS AB SCREEN Routine 10/12/2018 Rash Results for this 12:53 PM HAND TRIMMER Lymph node enlargement procedure are in the Radiculopathy, results section. unspecified spinal region Fever, unspecified fever cause Night sweats LYME-PCR Routine 10/12/2018 Rash Results for this 12:53 PM HAND TRIMMER Lymph node enlargement procedure are in the Radiculopathy, results section. unspecified spinal region Fever, unspecified fever cause Night sweats LEUKEMIA-LYMPHOMA PANEL Routine 10/12/2018 Rash Results for this BLOOD 12:53 PM HAND TRIMMER Lymph node enlargement procedure are in the Radiculopathy, results section. unspecified spinal region Fever, unspecified fever cause Night sweats C REACTIVE PROTEIN (CRP) Routine 10/12/2018 Rash Results for this 12:53 PM HAND TRIMMER Lymph node enlargement procedure are in the Radiculopathy, results section. unspecified spinal region Fever, unspecified fever cause Night sweats SED RATE Routine 10/12/2018 Rash Results for this 12:53 PM HAND TRIMMER Lymph node enlargement procedure are in the Radiculopathy, results section. unspecified spinal region Fever, unspecified fever cause Night sweats CBC AND DIFF Routine 10/12/2018 Rash Results for this 12:53 PM HAND TRIMMER Lymph node enlargement procedure are in the Radiculopathy, results section. unspecified spinal region Fever, unspecified fever cause Night sweats MRI C-SPINE WO CONTRAST Routine 09/13/2018 Cervical spondylosis with Results for this 12:34 PM CDT radiculopathy procedure are in the results section. EMG ORDER Routine 09/13/2018 Cervical spondylosis with Results for this 12:00 AM CDT radiculopathy procedure are in the results section. VITAMIN B12 Routine 09/03/2018 Memory loss Results for this 1:34 PM CDT procedure are in the results section. TSH WITH FREE T4 REFLEX Routine 09/03/2018 Memory loss Results for this 1:34 PM CDT procedure are in the results section. from Last 3 Months Results * FLOW CYTOMETRY (10/12/2018 12:53 PM) PATHOLOGY REPORT [email or web address] Zoltan Rendon MD, Director of Flow Cytometry Laboratory Department of Pathology and Laboratory Medicine [address] [place] [address] Surgical Pathology Office:[phone] :[phone] FLOW CYTOMETRY REPORT NAME: DIANA CINTRON SURG PATH #: [id number] MR #: [id number] SPECIMEN CLASS: LC BILLING #: [id number] ALT ID #:LOCATION: NSURG DATE OF PROCEDURE: 10/12/2018 AGE:38 SEX: F [...] in this report. +++Electronically Signed Out By+++ btp/10/12/2018 Interpreted by: Song Hinojosa MD 10/13/2018 ############################## ############################## ############ Lab Data: Flow Cytometry - Screen Panel Acute Myeloid Leukemia Screen GATED ON CD45 DIM POPULATION: Myeloid Associated Markers (% Positive Cells): IG85z=82; CD13=46; CD33=43; BB442=6 Miscellaneous Markers (% Positive Cells): CD34=8; CD45=52; HLA-DR=13 Granulocyte Associated Markers (% Positive Cells): CD16=97 Lymphoma (B and T Cell) MRD Panel GATED ON LYMPHOCYTE POPULATION: B Cell Associated Markers (% Positive Cells): CD19=5; CD19+CD5+=0; CD20=4; [place]=3; Lambda=2; [place]:Lambda ratio=1.7 T Cell Associated Markers (% Positive Cells): CD2=90; CD3=80; CD4=60; CD5=79; CD7=87; CD8=21 CD4:CD8 ratio=3.3 Miscellaneous Markers (% Positive Cells): CD10=0; CD38=34; ET55=335; CD56=12 Cell Viability (%): n/a Number of Cells Analyzed:500,000 Total Number of Markers: 21 Summary of Marker Combinations: [place]/Lambda/5/19/38/45/10/20; 2/7/5/3/4/45/56/8; 34/117/33/13/11b/45/Dr/16 This test was developed and its performance characteristics determined by the [facility] Flow Cytometry Laboratory.It has not been cleared or approved by the U.S. Food and Drug Administration (FDA).The FDA has determined that such clearance or approval is not necessary. Performing Organization Address City/State/Zipcode Phone Number [facility] RESULTS * SYPHILIS AB SCREEN (10/12/2018 12:53 PM) Syphilis AB, Total NEG NEG-NEG [facility] Comment: Negative EIA: Negative results indicate no past or present syphilis infection. Early infection can not be excluded. Specimen Blood Performing Organization Address City/[facility]/Zipcode Phone Number MAIN LAB [address] [place] [address] * LYME-PCR (10/12/2018 12:53 PM) B. Burgdorferi PCR Negative REFERENCE LAB Reference range: Negative [facility] B Mayonii Negative REFERENCE LAB Reference range: Negative [facility] B. Garinii/B. Afzelii PCR Negative REFERENCE LAB Reference range: Negative [facility] Lyme Disease Comment A negative result does not REFERENCE LAB Blood exclude infection with Borrelia burgdorferi. Serologic testing as per CDC guidelines may be indicated. ADDITIONAL INFORMATION This test was developed and its performance characteristics determined by [facility] in a manner consistent with CLIA requirements. This test has not been cleared or approved by the U.S. Food and Drug Administration. [facility] Specimen Blood Performing Organization Address [facility] Phone Number REFERENCE LAB REFERENCE LAB See results for address. * [facility] SPOTTED FEVER AB IGG&IGM (10/12/2018 12:53 PM) [facility] Spot Fever IgM <1:64 REFERENCE LAB Reference range: <1:64 No antibody detected. [facility], [address] [place] [id number] [place] [address] Spot Fever IgG <1:64 REFERENCE LAB Reference range: <1:64 No antibody detected. [facility], [address] [place] [id number] Specimen Blood Performing Organization Address City/[facility]/Zipcode Phone Number REFERENCE LAB REFERENCE LAB See results for address. * LEUKEMIA-LYMPHOMA PANEL BLOOD (10/12/2018 12:53 PM) Leuk/Lymph Interpretation SEE PATHOLOGY REPORT [facility] Specimen/LLM BLOOD MAIN LAB Specimen Blood Performing Organization Address City/[facility]/Zipcode Phone Number MAIN LAB [address] [place] [address] * BRUCELLA ANTIBODY IGG IGM (10/12/2018 12:53 PM) Brucella Ab IgG Negative REFERENCE LAB Reference range: Negative [facility], [address] [place] [address] Brucella Ab IgM Negative REFERENCE LAB Reference range: Negative [facility], [address] [place] [address] Interpretation Recommend repeat testing in REFERENCE LAB 14-21 days if recent infection is suspected. [facility], [address] [place] [address] Specimen Blood Performing Organization Address [facility] Phone Number REFERENCE LAB REFERENCE LAB See results for address. * BARTONELLA AB PANEL IGG IGM (10/12/2018 12:53 PM) Bartenalla Henselae IGG <1:128 REFERENCE LAB Reference range: <1:128 Unit: titer [facility], [address] [place] [address] Bartonella Henselae IGM <1:20 REFERENCE LAB Titer Reference range: <1:20 Unit: titer [facility], [address] [place] [address] B.Chang IgG <1:128 REFERENCE LAB Reference range: <1:128 Unit: titer [facility], [address] [place] [address] B.Chang IgM <1:20 REFERENCE LAB Reference range: <1:20 Unit: titer ADDITIONAL INFORMATION This test was developed and its performance characteristics determined by [facility] in a manner consistent with CLIA requirements. This test has not been cleared or approved by the U.S. Food and Drug Administration. [facility], [address] [place] [address] Specimen Blood Performing Organization Address [facility] Phone Number REFERENCE LAB REFERENCE LAB See results for address. * SED RATE (10/12/2018 12:53 PM) Sed Rate -ESR 5 0 - 20 MM/HR [facility] MAIN [facility] Specimen Blood Performing Organization Address City/[facility]/Zipcode Phone Number MAIN LAB [address] [place] [address] * CBC AND DIFF (10/12/2018 12:53 PM) White Blood Cells 7.1 4.5 - 11.0 K/UL [facility] RBC 4.36 4.0 - 5.0 M/UL [facility] Hemoglobin 13.7 12.0 - 15.0 GM/DL [facility] Hematocrit 41.6 36 - 45 % [facility] MCV 95.4 80 - 100 FL [facility] MCH 31.3 26 - 34 PG [facility] MCHC 32.8 32.0 - 36.0 G/DL [facility] RDW 12.8 11 - 15 % [facility] Platelet Count 232 150 - 400 K/UL [facility] MPV 9.4 7 - 11 [...] MAIN LAB Specimen Blood Performing Organization Address City/[facility] Phone Number MAIN LAB [address] [place] [address] * C REACTIVE PROTEIN (CRP) (10/12/2018 12:53 PM) C-Reactive Protein 0.13 <1.0 MG/DL MAIN LAB Specimen Blood Performing Organization Address [facility] Phone Number [facility] [address] [place] [address] * MRI C-SPINE WO CONTRAST (09/13/2018 12:34 PM) Impressions Performed At 1.Marked central spinal stenosis with moderate compression of the cervical [facility] RAD RESULTS spinal cord at C4-C5. This is secondary to a central protruding/extruded disc. This is immediately cephalad to ACDF changes at C5-C6. This could reflect transition syndrome. Correlate clinically. 2.Mild central spinal stenosis C3-C4 and C5-C6. 3.3.5 mm retrolisthesis of C4 on C5. 4.The bilateral neural foramen are patent. Finalized by Shawn Grace M.D. on 09/13/2018 2:55 PM. Dictated by Shawn Grace M.D. on 09/13/2018 1:03 PM. Narrative Performed At MRI C-SPINE WO CONTRAST [facility] RESULTS Clinical Indication: Neck pain without trauma.Cervical spondylosis with radiculopathy Technique: Sagittal T1-weighted, T2-weighted and STIR images were acquired through the cervical spine. Axial T2 star weighted gradient recall and axial 3 -D T2 space images were acquired through the cervical spine. Comparison: None Findings: Changes consistent with C5-C6 ACDF changes with metal hardware anchored at C5- C6 and interbody fusion material obliterating the disc space. There is 3.5 mm retrolisthesis of C4 on C5. The AP alignment cervical spine is otherwise normal. Mild cervical kyphosis centered over C4-C5. Estimated mild to moderate C4-C5 disc degeneration. There are minor Modic type I degenerative endplate changes at C4-C5. There are no osseous lesions. There is no bone marrow edema. The cervical spinal cord is homogeneous of normal caliber without focal abnormality. The central spinal canal and bilateral neural foramen are patent at C2-C3, C6- C7 and C7-T1. C3-C4: Mild central spinal stenosis with AP central spinal canal measuring 10 mm. No cord compression or deformation. The bilateral neural foramen are patent. C4-C5: Marked central spinal stenosis with AP central spinal canal measuring 6 mm. This is secondary to a central protruding/extruded disc. There is moderate compression and deformation of the cervical spinal cord. The bilateral neural foramen are patent. C5-C6: Mild central spinal stenosis with AP central spinal canal measuring 9.5 mm. The bilateral neural foramen are patent. Soft tissues about the cervical spine are grossly unremarkable. Procedure Note Interface, Radiant Results - 09/13/2018 2:58 PM CDT MRI C-SPINE WO CONTRAST Clinical Indication: Neck pain without trauma.Cervical spondylosis with radiculopathy Technique: Sagittal T1-weighted, T2-weighted and STIR images were acquired through the cervical spine. Axial T2 star weighted gradient recall and axial 3- D T2 space images were acquired through the cervical spine. Comparison: None Findings: Changes consistent with C5-C6 ACDF changes with metal hardware anchored at C5- C6 and interbody fusion material obliterating the disc space. There is 3.5 mm retrolisthesis of C4 on C5. The AP alignment cervical spine is otherwise normal. Mild cervical kyphosis centered over C4-C5. Estimated mild to moderate C4-C5 disc degeneration. There are minor Modic type I degenerative endplate changes at C4-C5. There are no osseous lesions. There is no bone marrow edema. The cervical spinal cord is homogeneous of normal caliber without focal abnormality. The central spinal canal and bilateral neural foramen are patent at C2-C3, C6- C7 and C7-T1. C3-C4: Mild central spinal stenosis with AP central spinal canal measuring 10 mm. No cord compression or deformation. The bilateral neural foramen are patent. C4-C5: Marked central spinal stenosis with AP central spinal canal measuring 6 mm. This is secondary to a central protruding/extruded disc. There is moderate compression and deformation of the cervical spinal cord. The bilateral neural foramen are patent. C5-C6: Mild central spinal stenosis with AP central spinal canal measuring 9.5 mm. The bilateral neural foramen are patent. Soft tissues about the cervical spine are grossly unremarkable. IMPRESSION 1. Marked central spinal stenosis with moderate compression of the cervical spinal cord at C4-C5. This is secondary to a central protruding/extruded disc. This is immediately cephalad to ACDF changes at C5-C6. This could reflect transition syndrome. Correlate clinically. 2. Mild central spinal stenosis C3-C4 and C5-C6. 3. 3.5 mm retrolisthesis of C4 on C5. 4. The bilateral neural foramen are patent. Finalized by Shawn Grace M.D. on 09/13/2018 2:55 PM. Dictated by Shawn Grace M.D. on 09/13/2018 1:03 PM. Performing Organization Address City/[facility]/Zipcode Phone Number RAD RESULTS * EMG ORDER (09/13/2018) Narrative Performed At Performing Organization Address City/State/Zipcode Phone Number IN CLINIC * TSH WITH FREE T4 REFLEX (09/03/2018 1:34 PM) TSH 2.000 0.35 - 5.00 MCU/ML MAIN LAB Specimen Blood Performing Organization Address City/[facility]/Zipcode Phone Number MAIN LAB [address] [place] [address] * VITAMIN B12 (09/03/2018 1:34 PM) Vitamin B12 248 180 - 914 PG/ML MAIN LAB Specimen Blood Performing Organization Address City/[facility]/Zipcode Phone Number MAIN LAB [address] [place] [address] from Last 3 Months
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
--- OUTSIDE RECORDS SUMMARY | 2018-10-18 19:29 | XMS REPORT | Encounter Summary ---
Author Author [facility] Organization [facility] Address Unknown Phone Unavailable Care Team Providers Care Rn Transitional Care Name Role Phone Loy Winter APRN PCP Encounter Details Date Type Department Care Team Description 09/03/2018 Hospital [facility] Azar Cottrell, Other amnesia Encounter [facility] 1st fl [address] [place] [address] [place] [address] [phone] Social History Tobacco Use Types Packs/Day Years Used Date Never Assessed Sex Assigned at Date Recorded Not on file as of this encounter Medications at Time of Discharge Medication Sig. Disp. Refills Start Date End Date diazePAM (VALIUM) 10 mg Take 5 mg [...] Procedure Name Priority Date/Time Associated Diagnosis Comments TSH WITH FREE T4 REFLEX Routine 09/03/2018 Memory loss Results for this 1:34 PM CDT procedure are in the results section. VITAMIN B12 Routine 09/03/2018 Memory loss Results for this 1:34 PM CDT procedure are in the results section. in this encounter Results * VITAMIN B12 (09/03/2018 1:34 PM) Vitamin B12 248 180 - 914 PG/ML MAIN LAB Specimen Blood Performing Organization Address City/[facility]/Zipcode Phone Number MAIN LAB [address] [place] [address] * TSH WITH FREE T4 REFLEX (09/03/2018 1:34 PM) TSH 2.000 0.35 - 5.00 MCU/ML MAIN LAB Specimen Blood Performing Organization Address City/[facility] Phone Number [facility] LAB [address] [place] [address] in this encounter Visit Diagnoses Diagnosis Memory loss Admitting Diagnoses Diagnosis Other amnesia
--- OUTSIDE RECORDS SUMMARY | 2018-10-18 19:29 | XMS REPORT | Encounter Summary ---
Author Author [facility] Organization [facility] Address Unknown Phone Unavailable Care Team Providers Care Real Property Evaluator Name Role Phone Loy Winter APRN PCP Reason for Visit * Reason Comments Test/procedure Encounter Details Date Type Department Care Team Description 09/13/2018 Clinical [facility] Zhanna Aguilera, PhD Cervical radiculopathy Support [facility] [address] [facility] [address] [place] [address] [place], [place] [phone] [phone] George Parker MD [address] [facility] [address] [place] [address] [phone] Bhavesh Sanchez MD [address] [place] [address] [phone] Social History Tobacco Use Types Packs/Day Years Used Date Never Assessed Sex Assigned at Date Recorded Not on file as of this encounter Plan of Treatment Not on fileas of this encounter Visit Diagnoses Diagnosis Cervical radiculopathy Brachial neuritis or radiculitis nos
--- OUTSIDE RECORDS SUMMARY | 2018-10-18 19:29 | XMS REPORT | Encounter Summary ---
Author Author [facility] Organization [facility] Address Unknown Phone Unavailable Care Team Providers Care Pe Teacher Name Role Phone Loy Winter APRN PCP Reason for Visit * Reason Comments Results Encounter Details Date Type Department Care Team Description 09/06/2018 Telephone [facility] Azar Cottrell, Results [facility] [address] [place] [address] [place] [phone] Social History Tobacco Use Types Packs/Day Years Used Date Never Assessed Sex Assigned at Date Recorded Not on file as of this encounter Miscellaneous Notes * Telephone Encounter - Yoselin Boyle LPN - 09/07/2018 9:24 AM CDT Patient notified voiced understanding of all lab results and agreeable to the recommendations. B12 2000 mcg added to medication list. MIA Wyatt * Telephone Encounter - Wandy Joyce LPN - 09/06/2018 9:19 AM CDT LVM for pt to call back, Left clinic number. * Telephone Encounter - Wandy Joyce LPN - 09/06/2018 9:19 AM CDT ----- Message from Azar Luong MD sent at 09/03/2018 5:40 PM CDT - ---- Please contact patient about these results. TSH was normal, but B12 on low/ normal range. I prefer this to be >400 in neurologic patients. -- Please advise patient to start oral B12 2000mcg daily. Thanks Azar in this encounter Plan of Treatment Not on fileas of this encounter Visit Diagnoses Not on filein this encounter
--- OUTSIDE RECORDS SUMMARY | 2018-10-18 19:29 | XMS REPORT | Encounter Summary ---
Author Author [facility] Organization [facility] Address Unknown Phone Unavailable Care Team Providers Care Literary Writer Name Role Phone Moy Loy JORGITO PCP Reason for Visit * Reason Comments Results Encounter Details Date Type Department Care Team Description 09/17/[address] [facility] Azar Cottrell, Results [facility]Ne[facility] [address] [facility] [address] [place] [address] [place], [place] [phone] Social History Tobacco Use Types Packs/Day Years Used Date Never Assessed Sex Assigned at Date Recorded Not on file as of this encounter Miscellaneous Notes * Telephone Encounter - Wandy Joyce LPN - 09/17/2018 9:22 AM CDT LVM for pt regarding EMG results. [employer] message also sent * Telephone Encounter - Wandy oJyce LPN - 09/17/2018 9:22 AM CDT ----- Message from Azar Luong MD sent at 09/16/2018 4:34 PM CDT - ---- Please inform patient about EMG. Study showed evidence of cervical radiculopathy. Thanks Azar in this encounter Plan of Treatment Not on fileas of this encounter Visit Diagnoses Not on filein this encounter
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
--- OUTSIDE RECORDS SUMMARY | 2018-10-18 19:29 | XMS REPORT | Encounter Summary ---
Author Author [facility] Organization [facility] Address Unknown Phone Unavailable Care Team Providers Care Rn Trauma Name Role Phone Loy Winter APRN PCP Encounter Details Date Type Department Care Team Description 09/03/2018 Procedure Pass [facility] Radiology [address] [place] [address] Social History Tobacco Use Types Packs/Day Years Used Date Never Assessed Sex Assigned at Date Recorded Not on file as of this encounter Plan of Treatment Not on fileas of this encounter Visit Diagnoses Not on filein this encounter
--- OUTSIDE RECORDS SUMMARY | 2018-10-18 19:29 | XMS REPORT | Encounter Summary ---
Author Author [facility] Organization [facility] Address Unknown Phone Unavailable Care Team Providers Care Mattress Inspector Name Role Phone Loy Winter APRN PCP Reason for Referral * Radiology Services (Routine) Status Reason Specialty Diagnoses / Referred By Referred To Procedures Contact Contact No Auth Needed Radiology Diagnoses Tanvir Cottrell Mri Cervical MD [facility] [address] spondylosis with [address] [place] [address] [employer] [place] [id number] Phone: MRI C-SPINE WO CONTRAST [phone] * Radiology Services (Routine) Status Reason Specialty Diagnoses / Referred By Referred To Procedures Contact Contact No Auth Needed Radiology Diagnoses Tanvir Cottrell Mri Cervical MD [facility] [address] spondylosis with [address] [place] [address] rocedures [id number] Phone: MRI C-SPINE WO CONTRAST [phone] Reason for Visit * Radiology Services (Routine) Status Reason Specialty Diagnoses / Referred By Referred To Procedures Contact Contact No Auth Needed Radiology Diagnoses Tanvir Cottrell Mri Cervical MD [facility] [address] spondylosis with [address] [place] [address] rocedures [id number] Phone: MRI C-SPINE WO CONTRAST [phone] Encounter Details Date Type Department Care Team Description 09/13/2018 [facility] Azar Cottrell, Encounter Hospital Radiology [address] [place] [address] [place] [address] [phone] Social History Tobacco Use Types Packs/Day Years [...] Procedure Name Priority Date/Time Associated Diagnosis Comments MRI C-SPINE WO CONTRAST Routine 09/13/2018 Cervical [...] Address City/State/Zipcode Phone Number [facility] RESULTS in this encounter Visit Diagnoses Diagnosis Cervical spondylosis with radiculopathy Cervical spondylosis with myelopathy
--- OUTSIDE RECORDS SUMMARY | 2018-10-18 19:30 | XMS REPORT ---
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 Name Role Phone FLORENCIA HINOJOSA Unavailable PROBLEMS Type Condition ICD9-CM Code WON75-CU Code Onset Dates Condition Status SNOMED Code Problem Intractable migraine without aura and without status migrainosus G43.019 Active 494075134 Problem Memory loss R41.3 Active 00719325 Problem Cervical disc disorder with radiculopathy, cervicothoracic region M50.13 Active 194042021 Problem Benign essential tremor G25.0 Active 734872769 Problem Other chronic pain G89.29 Active 63110069 Problem Mental status change resolved Z86.59 Active 071324458 Problem Arthritis M19.90 Active 8530873 Problem Chronic fatigue R53.82 Active 20022638 ALLERGIES No Information ENCOUNTERS Encounter Location Date Diagnosis [facility] [place] [address] [address] Sep, [facility] [place] [address] [address]- [address]26 Sep, Other chronic pain G89.29 [facility] [place] [id number] [place] [address] 55013- 1356 Sep, Other chronic pain G89.29 ; Benign essential tremor G25.0 ; Chronic fatigue R53.82 and Intractable migraine without aura and without status migrainosus G43.019 [facility] [id number] [place] [address] 29492 -6478 Aug, Injury of left thumb, initial encounter S69.92XA [facility] [place] [id number] [place] [address] 01245- 4683 Aug, Intractable migraine without aura and without status migrainosus G43.019 [facility] [place] [address] [address] 6666 25 Jul, 2018 [facility] [place] [id number] [place] [address] 30315- 8906 19 Jul, 2018 Cervical disc disorder with radiculopathy, cervicothoracic region M50.13 and Benign essential tremor G25.0 [facility] [place] [id number] [place] [address] 93757- 1916 14 Jul, 2018 Intractable migraine without aura and without status migrainosus G43.019 [facility] [place] [id number] [place] [address] 75718- 4251 05 Jul, 2018 Memory loss R41.3 and Tremors of nervous system R25.1 [facility] [place] [id number] [place] [address] 98793- 3143 28 Jun, 2018 Intractable migraine without aura and without status migrainosus G43.019 ; Memory loss R41.3 and Tremors of nervous system R25.1 [facility] [place] [id number] [place] [address] 44575- 6704 Jun, [facility] [place] [id number] [place] [address] 92954- 9013 Jun, Intractable migraine without aura and without status migrainosus G43.019 [facility] [place] [id number] [place] [address] 72162- 6922 May, Intractable migraine without aura and without status migrainosus G43.019 [facility] [place] [id number] [place] [address] 14420- 5637 May, 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 [facility] [place] [id number] [place] [address] 82225- 0155 May, 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 [facility] [place] [id number] [place] [address] 89277- 7754 May, 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 [facility] [id number] [place] [address] 93013 -1686 May, Pain in finger of left hand M79.645 [facility] [place] [address] [address]36 2546 Apr, Intractable migraine without aura and without status migrainosus G43.019 [facility] [place] [id number] [place] [address] 78537 2546 Apr, Chronic fatigue R53.82 and Dizziness R42 [facility] [place] [address] 81428- 8826 March, [facility] [place] [address] 42523- 1058 March, Intractable migraine without aura and without status migrainosus G43.019 [facility] [place] [id number] [place] [address] 31481- 3846 March, [facility] [place] [id number] [place] [address] 13022- 1485 March, [facility] [place] [id number] [place] [address] 04680- 4781 Feb, Intractable migraine without aura and without status migrainosus G43.019 [facility] [place] [id number] [place] [address] 80137- 6864 Feb, Memory loss R41.3 and 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 [facility] [place] [id number] [place] [address] 66803- 0847 Feb, Intractable migraine without aura and without status migrainosus G43.019 [facility] [place] [id number] [place] [address] 05439- 9416 Jan, Intractable migraine without aura and without status migrainosus G43.019 [facility] [place] [id number] [place] [address] 77114- 1906 Dec, [facility] [place] [id number] [place], [place] [address]- 2546 Dec, Intractable migraine without aura and without status migrainosus G43.019 [facility] [place] [id number] [place] [address] 72479- 8691 Nov, [facility] [place] [id number] [place] [address] 955685- 0056 Nov, Chronic fatigue R53.82 and Family history of thyroid disease Z83.49 [facility] [place] [id number] [place] [address] 78163- 9266 Nov, Arthritis M19.90 ; Chronic fatigue R53.82 ; Family history of thyroid disease Z83.49 ; Grade IV hemorrhoids K64.3 and Other chronic pain G89.29 [facility] [place] [id number] [place] [address] 87208- 4245 Nov, Intractable migraine without aura and without status migrainosus G43.019 [facility] [place] [id number] [place] [address] 77718- 8436 Oct, [facility] [place] [id number] [place] [address] 75542- 5612 Oct, Intractable migraine without aura and without status migrainosus G43.019 [facility] [place] [address] [place] [address] 89185- 3054 Oct, [facility] [place] [id number] [place] [address] 08853- 5712 Oct, [facility] [place] [id number] [place] [address] 14953- 5499 Sep, Tremors of nervous system R25.1 [facility] [place] [id number] [place] [address] 25999- 0370 Sep, [facility] [place] [id number] [place] [address] 89978- 4491 Sep, Intractable migraine without aura and without status migrainosus G43.019 [facility] [place] [address] [address]- 2546 Sep, [facility] [place] [id number] [place] [address] 20682- 9286 Sep, [facility] [place] [id number] [place] [address] 19938- 2546 Sep, Acute medial meniscus tear of right knee, initial encounter S83.241A and Acute lateral meniscus tear of left knee, initial encounter S83.282A [facility] [place] [id number] [place] [address] 24561- 1297 Aug, Intractable migraine without aura and without status migrainosus G43.019 [facility] [place] [id number] [place] [address] 63178- 6956 Aug, [facility] [place] [id number] [place] [address] 92670- 1846 Aug, [facility] [place] [id number] [place] [address] 56103- 2811 Jul, [facility] [place] [id number] [place] [address] 27488- 6173 Jul, [facility] [place] [id number] [place] [address] 97751- 2175 Jul, Intractable migraine without aura and without status migrainosus G43.019 ; Memory loss R41.3 ; Mental status change resolved Z86.59 ; Other chronic pain G89.29 and Pain in right knee M25.561 [facility] [place] [address] [address]- 3949 Jul, [facility] [place] [id number] [place] [address] 38914- 4455 Jun, Tremors of nervous system R25.1 and Pelvic pain R10.2 [facility] [place] [id number] [place] [address] 00873- 3162 Jun, [facility] [place] [id number] [place] [address] 74048- 0491 Jun, [facility] [place] [id number] [place] [address] 62101- 7542 Jun, [facility] [place] [id number] [place] [address] 10191- 2806 May, [facility] [place] [id number] [place] [address] 35838- 0115 May, [facility] [place] [id number] [place] [address] 62597- 2542 May, Kidney pain N23 [facility] [place] [address] 38434- 3967 May, Pelvic pain R10.2 [facility] [id number] [place] [address] 45737 -8284 May, Wasp sting, accidental or unintentional, initial encounter T63.461A and Allergic contact dermatitis due to other agents L23.89 [facility] [place] [id number] [place] [address] 77626- 8256 May, [facility] [place] [id number] [place] [address] 53416- 6458 May, Pelvic pain R10.2 [facility] [place] [id number] [place] [address] 48135- 9925 May, [facility] [place] [id number] [place] [address] 80181- 2084 Apr, Tremors of nervous system R25.1 ; Blood in stool, gabby K92.1 ; 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 ; Memory loss R41.3 and Intractable migraine without aura and without status migrainosus G43.019 [facility] [place] [id number] [place] [address] 90716- 4065 Apr, Blood in stool, gabby K92.1 [facility] [place] [id number] [place] [address] 10170- 3485 Apr, Tremors of nervous system R25.1 ; 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 ; Memory loss R41.3 and Intractable migraine without aura and without status migrainosus G43.019 [facility] [place] [id number] [place] [address] 30668- 9493 Apr, [facility] [place] [id number] [place] [address] 45364- 2205 Apr, Tremor R25.1 [facility] [place] [id number] [place] [address] 74882- 6332 March, [facility] [place] [id number] [place] [address] 36196- 5990 March, Cyst of right ovary N83.201 [facility] [place] [id number] [place] [address] 95727- 6631 March, Blood in stool, gabby K92.1 and Other fatigue R53.83 [facility] [place] [id number] [place] [address] 69449- 8177 March, Cyst of right ovary N83.201 [facility] [place] [id number] [place] [address] 21609- 6773 Feb, [facility] [place] [id number] [place] [address] 90652- 6096 Feb, [facility] [place] [id number] [place] [address] 25119- 3216 Feb, Cyst of right ovary N83.201 and Right lower quadrant abdominal pain R10.31 [facility] [place] [id number] [place] [address] 97874- 1960 Jan, Pelvic pain R10.2 [facility] [place] [id number] [place] [address] 55808- 1732 Jan, [facility] [place] [id number] [place] [address] 43574- 7959 Jan, [facility] [place] [id number] [place] [address] 77272- 7356 Jan, Left groin pain R10.30 [facility] [place] [id number] [place] [address] 33913- 8267 Dec, [facility] [place] [id number] [place] [address] 69793- 1717 Dec, Pelvic pain R10.2 and Lumbosacral neuritis M54.17 [facility] [place] [id number] [place] [address] 01690- 4732 Dec, [facility] [place] [id number] [place] [address] 76411- 6909 Dec, Lymph node enlargement R59.9 [facility] [place] [id number] [place] [address] 79329- 3723 Nov, Lymph node enlargement R59.9 [facility] [place] [id number] [place] [address] 68903- 0253 Nov, [facility] [place] [id number] [place] [address] 67205- 1809 Nov, Left groin pain R10.30 [facility] [place] [id number] [place] [address] 15435- 3603 Nov, Varicose vein of leg I83.90 ; Essential hypertension I10 and Short lasting unilateral neuralgiform headache with conjunctival injection and tearing (SUNCT), not intractable G44.059 [facility] [address] [place] [address] 09707 -3298 Jul, Post concussion syndrome F07.81 [facility] [place] [id number] [place] [address] 31669- 0044 Jul, [facility] [place] [id number] [place] [address] 70194- 8308 Oct, [facility] [place] [id number] [place] [address] 96041- 2257 Oct, [facility] [address] [address]- 9836 Aug, [facility] [address] [place] [address] 74650- 8218 Aug, Obesity 278.00 [facility] [address] [place] [address] 88902- 9086 Aug, [facility] [id number] [place] [address] 63076- 2423 Jul, Obesity 278.00 and Cervical spondylosis without myelopathy 721.0 [facility] [id number] [place] [address] 24003- 4877 March, [facility] [address] [place] [address] 94678- 6513 Feb, Cervical spondylosis 721.0 [facility] [id number] [place] [address] 63264- 5960 Feb, [facility] [address] 3743 Feb, [facility] [address] [place] [address] 91931- 6964 Jan, [facility] [address] [address]- 4245 Jan, [facility] [address] [address]- 4046 Jan, [facility] [address] [address]- 4466 Jan, [facility] [id number] [place] [address] 92853- 2296 Jan, [facility] [address] [address]- 4806 Jan, [facility] [id number] [place] [address] 97022- 2928 Dec, [facility] [place] [facility] [address] [id number] [place] [address]- 6180 Dec, [facility] [place] [facility] [address] [id number] [place] [address]- 3727 Dec, [facility] [place] [facility] [address] [id number] [place] [address]- 5501 Dec, [facility] [place] [facility] [address] [id number] [place] [address]- 5262 Nov, [facility] [place] [facility] [address] [id number] [place] [address]- 9758 Nov, [facility] [place] [facility] [address] [id number] [place] [address]- 4171 Nov, [facility] [place] [facility] [address] [facility] [id number] [place] [address]- 7910 Nov, [facility] [place] [facility] [address] [id number] [place] [address]- 8134 Nov, [facility] [place] [facility] [address] [facility] [id number] [place] [address]- 0190 Nov, [facility] [place] [facility] [address] [facility] [id number] [place] [address]- 3205 Nov, [facility] [place] [facility] [address] [id number] [address]- 0414 Nov, [facility] [place] [facility] [address] [id number] [address]- 9655 Oct, [facility] [place] [facility] [address] [id number] [place] [address]- 2943 Oct, [facility] [place] [facility] [address] [id number] [place] [address]- 1349 Sep, [facility] [place] [facility] [address] [facility] [id number] [place] [address]- 0211 Sep, [facility] [place] [facility] [address] [id number] [place] [address]- 0771 10 Sep, 2014 [facility] [place] [facility] [address] [id number] [place] [address]- 6311 10 Sep, 2014 [facility] [place] [facility] [address] [id number] [place] [address]- 8246 29 Jul, 2013 [facility] [place] [facility] [address] [id number] [place] [address] 2546 29 Jul, 2013 [facility] [place] [facility] [address] [id number] [place] [address]- 2540 Jul, 2013 [facility] [place] [facility] [address] [id number] [place] [address]- 5508 Jul, 2013 [facility] [place] [facility] [address] [id number] [place] [address]- 7778 Jul, 2013 [facility] [place] [facility] [address] [id number] [place] [address]- 3389 Jul, 2013 [facility] [place] [facility] [address] [id number] [place] [address]- 6579 Jul, 2013 [facility] [place] [facility] [address] [id number] [place] [address]- 9875 Jul, 2013 [facility] [place] [facility] [address] [id number] [place] [address]- 6169 Jul, [facility] [place] [facility] [address] [id number] [place] [address]- 2544 Jul, 2013 [facility] [place] [facility] [address] [id number] [place] [address]- 6287 Jun, [facility] [place] [facility] [address] [id number] [place] [address]- 2375 Jun, [facility] [place] [facility] [address] [id number] [place] [address]- 6002 Jun, [facility] [place] [facility] [address] [id number] [place] [address]- 3651 Jun, [facility] [place] [facility] [address] [id number] [place] [address]- 6617 Jun, [facility] [place] [facility] [address] [id number] [place] [address]- 2692 Jun, [facility] [place] [facility] [address] [id number] [place] [address]- 4938 May, [facility] [place] [facility] [address] [id number] [place] [address]- 4729 May, [facility] [place] [facility] [address] [id number] [place] [address]- 9907 May, [facility] [place] [facility] [address] [id number] [place] [address]- 5820 May, [facility] [place] [facility] [address] [id number] [place] [address]- 0844 May, [facility] [place] [facility] [address] [id number] [place] [address]- 0599 May, [facility] [place] [facility] [address] [id number] [place] [address]- 1385 Apr, [facility] [place] [facility] [address] [id number] [place] [address]- 5970 Apr, [facility] [place] [facility] [address] [id number] [place] [address]- 4823 Apr, [facility] [place] [facility] [address] [id number] [place] [address]- 4222 Apr, [facility] [place] [facility] [address] [id number] [place] [address]- 9337 Apr, [facility] [place] [facility] [address] [id number] [place] [address]- 2442 Apr, [facility] [place] [facility] [address] [id number] [place] [address]- 3724 Apr, [facility] [place] [facility] [address] [id number] [place] [address]- 6760 Apr, [facility] [place] [facility] [address] [id number] [place] [address]- 9494 Apr, [facility] [place] [facility] [address] [id number] [place] [address] Apr, [facility] [place] [facility] [address] [id number] [place] [address] Apr, [facility] [place] [facility] [address] [id number] [place] [address] Apr, [facility] [place] [facility] [address] [id number] [place] [address] Apr, [facility] [place] [facility] [address] [id number] [place] [address] March, [facility] [place] [facility] [address] [id number] [place] [address] March, [facility] [place] [facility] [address] [id number] [place] [address] March, [facility] [place] [facility] [address] [id number] [place] [address] March, [facility] [place] [facility] [address] [id number] [place] [address] March, [facility] [place] [facility] [address] [id number] [place] [address] March, [facility] [place] [facility] [address] [id number] [place] [address] Feb, [facility] [place] [facility] [address] [id number] [place] [address] Feb, [facility] [place] [facility] [address] [id number] [place] [address] Feb, [facility] [place] [facility] [address] [id number] [place] [address] Feb, [facility] [place] [facility] [address] [id number] [place] [address] 18 Feb, 2014 [facility] [place] [facility] [address] [id number] [place] [address] 18 Feb, 2014 [facility] [place] [facility] [address] [id number] [place] [address] 15 Feb, 2014 [facility] [place] [facility] [address] [id number] [place] [address] 15 Feb, 2014 [facility] [place] [facility] [address] [id number] [place] [address] Feb, [facility] [place] [facility] [address] [id number] [place] [address] Feb, [facility] [place] [facility] [address] [id number] [place] [address] Jan, [facility] [place] [facility] [address] [id number] [place] [address] Jan, [facility] [place] [facility] [address] [id number] [place] [address] Jan, [facility] [place] [facility] [address] [id number] [place] [address] Jan, [facility] [place] [facility] [address] [id number] [place] [address] Dec, [facility] [place] [facility] [address] [id number] [place] [address] Dec, [facility] [place] [facility] [address] [id number] [place] [address] Sep, [facility] [place] [facility] [address] [id number] [place] [address] Sep, [facility] [place] [facility] [address] [id number] [place] [address] Aug, [facility] [place] [facility] [address] [id number] [place] [address] Aug, [facility] [place] [address] [facility] [id number] [place] [address] Aug, [facility] [place] [address] [facility] [id number] [place] [address] Aug, [facility], [place] [address] [facility] [id number] [place] [address] Aug, [facility], [place] [address] [facility] [id number] [place] [address] May, [facility], [place] [address] [facility] [id number] [place] [address] Jan, [facility], [place] [address] [facility] [id number] [place] [address] Jan, [facility], [place] [address] [facility] [facility] [id number] [address] [id number] Dec, IMMUNIZATIONS No Known Immunizations SOCIAL HISTORY Never Assessed REASON FOR VISIT Controlled Med Refill 08/30/18 PLAN OF CARE VITAL SIGNS MEDICATIONS Medication Instructions Dosage Frequency Start Date End Date Duration Status Oxycodone HCl 10 mg Orally 4 times a day 1 tablet as needed 6h Sep, 28 days Active Propranolol HCl 10 mg Orally Once a day 1 tablet on an empty stomach 24h Jul, 30 day(s) Active Diazepam 5 mg Orally Twice a day 1 tablet as needed 12h 28 days Active Ambien 10 mg Orally Once a day 1 tablet at bedtime as needed 24h Aug, 28 days Active RESULTS No Results PROCEDURES No Known procedures INSTRUCTIONS MEDICATIONS ADMINISTERED No Known Medications MEDICAL (GENERAL) HISTORY Type Description Date Medical History Asthma Medical History Hives since 2000 Surgical History spinal fusion 2014 Surgical History Tonsillectomy Surgical History Appendectomy Surgical History section Surgical History epidural anesthesia/injection Surgical History Hemorrhoidecomy with umu Surgical History colonoscopy Surgical History hysterectomy May 2018 Surgical History bladder sling May 2018 Hospitalization History No know Hospitalization history
--- OUTSIDE RECORDS SUMMARY | 2018-10-18 19:30 | XMS REPORT ---
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 Name Role Phone FLORENCIA HINOJOSA Unavailable PROBLEMS Type Condition ICD9-CM Code QZN63-AL Code Onset Dates Condition Status SNOMED Code Problem Intractable migraine without aura and without status migrainosus G43.019 Active 890734569 Problem Memory loss R41.3 Active 82065614 Problem Cervical disc disorder with radiculopathy, cervicothoracic region M50.13 Active 340638369 Problem Benign essential tremor G25.0 Active 192429126 Problem Other chronic pain G89.29 Active 58483794 Problem Mental status change resolved Z86.59 Active 470034156 Problem Arthritis M19.90 Active 1244049 Problem Chronic fatigue R53.82 Active 70188820 ALLERGIES No Information ENCOUNTERS Encounter Location Date Diagnosis [facility] [address] [address]- [address] Sep, [facility] [address] 88222- 3793 Sep, Other chronic pain G89.29 [facility] [id number] [place] [address] 28898- 8743 Sep, Other chronic pain G89.29 ; Benign essential tremor G25.0 ; Chronic fatigue R53.82 and Intractable migraine without aura and without status migrainosus G43.019 [facility] [id number] [place] [address] 32017 -3623 Aug, Injury of left thumb, initial encounter S69.92XA [facility] [id number] [place] [address] 68277- 2865 Aug, Intractable migraine without aura and without status migrainosus G43.019 [facility] [address], [place] [address] 04[address] 25 Jul, 2018 [facility] [id number] [place] [address] 56046- 6676 19 Jul, 2018 Cervical disc disorder with radiculopathy, cervicothoracic region M50.13 and Benign essential tremor G25.0 [facility] [id number] [place] [address] 45815- 7306 14 Jul, 2018 Intractable migraine without aura and without status migrainosus G43.019 [facility] [id number] [place] [address] 93868- 7846 05 Jul, 2018 Memory loss R41.3 and Tremors of nervous system R25.1 [facility] [id number] [place] [address] 36491- 8919 28 Jun, 2018 Intractable migraine without aura and without status migrainosus G43.019 ; Memory loss R41.3 and Tremors of nervous system R25.1 [facility] [id number] [place] [address] 93334- 5746 Jun, [facility] [id number] [place] [address] 66945- 1767 Jun, Intractable migraine without aura and without status migrainosus G43.019 [facility] [id number] [place] [address] 12663- 2878 May, Intractable migraine without aura and without status migrainosus G43.019 [facility] [id number] [place] [address] 68767- 8125 May, 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 [facility] [id number] [place] [address] 95739- 7419 May, 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 [facility] [id number] [place] [address] 53180- 8013 May, 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 [facility] [id number] [place] [address] 87533 -4326 May, Pain in finger of left hand M79.645 [facility] [address] 07645 2546 Apr, Intractable migraine without aura and without status migrainosus G43.019 [facility] [id number] [place] [address] 04534 2546 Apr, Chronic fatigue R53.82 and Dizziness R42 [facility] [address] 44706- 2326 March, [facility] [address] 30966- 1350 March, Intractable migraine without aura and without status migrainosus G43.019 [facility] [id number] [place] [address] 04684- 3746 March, [facility] [id number] [place] [address] 08472- 1271 March, [facility] [id number] [place] [address] 31644- 3817 Feb, Intractable migraine without aura and without status migrainosus G43.019 [facility] [id number] [place] [address] 72314- 5913 Feb, Memory loss R41.3 and 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 [facility] [id number] [place] [address] 54183- 4375 Feb, Intractable migraine without aura and without status migrainosus G43.019 [facility] [id number] [place] [address] 42181- 8446 Jan, Intractable migraine without aura and without status migrainosus G43.019 [facility] [id number] [place] [address] 81339- 2676 Dec, [facility] [id number] [place] [address] 2546 Dec, Intractable migraine without aura and without status migrainosus G43.019 [facility] [id number] [place] [address] 56391- 3704 Nov, [facility] [id number] [place] [address] 673871- 2256 Nov, Chronic fatigue R53.82 and Family history of thyroid disease Z83.49 [facility] [id number] [place] [address] 72619- 6854 Nov, Arthritis M19.90 ; Chronic fatigue R53.82 ; Family history of thyroid disease Z83.49 ; Grade IV hemorrhoids K64.3 and Other chronic pain G89.29 [facility] [id number] [place] [address] 20780- 2086 Nov, Intractable migraine without aura and without status migrainosus G43.019 [facility] [id number] [place] [address] 01327- 7587 Oct, [facility] [id number] [place] [address] 38602- 7156 Oct, Intractable migraine without aura and without status migrainosus G43.019 [facility] [address] [place] [address] 08969- 1782 Oct, [facility] [id number] [place] [address] 65655- 9170 Oct, [facility] [id number] [place] [address] 97778- 2278 Sep, Tremors of nervous system R25.1 [facility] [id number] [place] [address] 32581- 3893 Sep, [facility] [id number] [place] [address] 07484- 0484 Sep, Intractable migraine without aura and without status migrainosus G43.019 [facility] [address], [place] [address]- 2546 Sep, [facility] [id number] [place] [address] 38960- 4666 Sep, [facility] [id number] [place] [address] 82021- 2546 Sep, Acute medial meniscus tear of right knee, initial encounter S83.241A and Acute lateral meniscus tear of left knee, initial encounter S83.282A [facility] [id number] [place] [address] 71249- 9306 Aug, Intractable migraine without aura and without status migrainosus G43.019 [facility] [id number] [place] [address] 94884- 3406 Aug, [facility] [id number] [place] [address] 90801- 7676 Aug, [facility] [id number] [place] [address] 97579- 7792 Jul, [facility] [id number] [place] [address] 47647- 4496 Jul, [facility] [id number] [place] [address] 57600- 1262 Jul, Intractable migraine without aura and without status migrainosus G43.019 ; Memory loss R41.3 ; Mental status change resolved Z86.59 ; Other chronic pain G89.29 and Pain in right knee M25.561 [facility] [address] [address]- 5188 Jul, [facility] [id number] [place] [address] 45738- 3911 Jun, Tremors of nervous system R25.1 and Pelvic pain R10.2 [facility] [address] [place] [address] 69012- 4811 Jun, [facility] [id number] [place] [address] 74639- 5559 Jun, [facility] [id number] [place] [address] 11214- 5704 Jun, [facility] [id number] [place] [address] 32419- 6607 May, [facility] [id number] [place] [address] 88023- 3685 May, [facility] [id number] [place] [address] 56309- 9428 May, Kidney pain N23 [facility] [address] 54726- 1405 May, Pelvic pain R10.2 [facility] [id number] [place] [address] 27878 -8899 May, Wasp sting, accidental or unintentional, initial encounter T63.461A and Allergic contact dermatitis due to other agents L23.89 [facility] [id number] [place] [address] 01009- 5797 May, [facility] [id number] [place] [address] 12405- 9964 May, Pelvic pain R10.2 [facility] [id number] [place] [address] 38281- 6515 May, [facility] [id number] [place] [address] 81863- 5889 Apr, Tremors of nervous system R25.1 ; Blood in stool, gabby K92.1 ; 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 ; Memory loss R41.3 and Intractable migraine without aura and without status migrainosus G43.019 [facility] [id number] [place] [address] 51476- 3041 Apr, Blood in stool, gabby K92.1 [facility] [id number] [place] [address] 17960- 9102 Apr, Tremors of nervous system R25.1 ; 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 ; Memory loss R41.3 and Intractable migraine without aura and without status migrainosus G43.019 [facility] [id number] [place] [address] 62667- 9681 Apr, [facility] [id number] [place] [address] 79654- 6100 Apr, Tremor R25.1 [facility] [id number] [place] [address] 99399- 7509 March, [facility] [id number] [place] [address] 48810- 4503 March, Cyst of right ovary N83.201 [facility] [id number] [place] [address] 14851- 6803 March, Blood in stool, gabby K92.1 and Other fatigue R53.83 [facility] [id number] [place] [address] 91392- 1134 March, Cyst of right ovary N83.201 [facility] [id number] [place] [address] 86884- 7139 Feb, [facility] [id number] [place] [address] 94409- 2954 Feb, [facility] [id number] [place] [address] 05975- 6179 Feb, Cyst of right ovary N83.201 and Right lower quadrant abdominal pain R10.31 [facility] [id number] [place] [address] 22420- 9995 Jan, Pelvic pain R10.2 [facility] [id number] [place] [address] 79205- 4180 Jan, [facility] [id number] [place] [address] 21441- 5275 Jan, [facility] [id number] [place] [address] 65012- 8938 Jan, Left groin pain R10.30 [facility] [id number] [place] [address] 03134- 1560 Dec, [facility] [id number] [place] [address] 55375- 3275 Dec, Pelvic pain R10.2 and Lumbosacral neuritis M54.17 [facility] [id number] [place] [address] 98570- 3991 Dec, [facility] [id number] [place] [address] 52443- 1905 Dec, Lymph node enlargement R59.9 [facility] [id number] [place] [address] 09219- 7194 Nov, Lymph node enlargement R59.9 [facility] [id number] [place] [address] 97246- 5537 Nov, [facility] [id number] [place] [address] 69108- 0279 Nov, Left groin pain R10.30 [facility] [id number] [place] [address] 65018- 3735 Nov, Varicose vein of leg I83.90 ; Essential hypertension I10 and Short lasting unilateral neuralgiform headache with conjunctival injection and tearing (SUNCT), not intractable G44.059 [facility] [address] [place] [address] 22472 -8291 Jul, Post concussion syndrome F07.81 [facility] [id number] [place] [address] 68593- 4475 Jul, [facility] [id number] [place] [address] 70258- 9507 Oct, [facility] [id number] [place] [address] 70080- 4561 Oct, [facility] [address], [place] [address]- 6044 Aug, [facility] [address] [place] [address] 83133- 6264 Aug, Obesity 278.00 [facility] [address] [place] [address] 15996- 6566 Aug, [facility] [id number] [place] [address] 15369- 8532 Jul, Obesity 278.00 and Cervical spondylosis without myelopathy 721.0 [facility] [id number] [place] [address] 10298- 4969 March, [facility] [address] [place] [address] 95537- 3138 Feb, Cervical spondylosis 721.0 [facility] [id number] [place] [address] 39937- 9955 Feb, [facility] [address] 7341 Feb, [facility] [address] [place] [address] 29984- 6338 Jan, [facility] [address], [place] [address]- 9726 Jan, [facility] [address], [place] [address]- 8886 Jan, [facility] [address] [place] [address]- 7313 Jan, [facility] [id number] [place] [address] 76926- 7286 Jan, [facility] [address], [place] [address]- 3456 Jan, [facility] [address] [place] [address] 93908- 5336 Dec, [facility] [place] [facility] [address] [id number] [place] [address]- 2688 Dec, [facility] [place] [facility] [address] [id number] [place] [address]- 7314 Dec, [facility] [place] [facility] [address] [id number] [place] [address]- 4852 Dec, [facility] [place] [facility] [address] [id number] [place] [address]- 3085 Nov, [facility] [place] [facility] [address] [id number] [place] [address]- 5079 Nov, [facility] [place] [facility] [address] [id number] [place] [address]- 4201 Nov, [facility] [place] [facility] [address] [facility] [id number] [place] [address]- 7725 Nov, [facility] [place] [facility] [address] [id number] [place] [address]- 6981 Nov, [facility] [place] [facility] [address] [facility] [id number] [place] [address]- 8120 Nov, [facility] [place] [facility] [address] [facility] [id number] [place] [address]- 2475 Nov, [facility] [place] [facility] [address] [id number], [place] [address]- 7841 Nov, [facility] [place] [facility] [address] [id number], [place] [address]- 8161 Oct, [facility] [place] [facility] [address] [id number] [place] [address]- 7256 Oct, [facility] [place] [facility] [address] [id number] [place] [address]- 9455 Sep, [facility] [place] [facility] [address] [facility] [id number] [place] [address]- 1187 Sep, [facility] [place] [facility] [address] [id number] [place] [address]- 7847 10 Sep, 2014 [facility] [place] [facility] [address] [id number] [place] [address]- 3638 10 Sep, 2014 [facility] [place] [facility] [address] [id number] [place] [address]- 1036 29 Jul, 2013 [facility] [place] [facility] [address] [id number] [place] [address] 2546 29 Jul, 2013 [facility] [place] [facility] [address] [id number] [place] [address]- 2540 Jul, 2013 [facility] [place] [facility] [address] [id number] [place] [address]- 7211 Jul, 2013 [facility] [place] [facility] [address] [id number] [place] [address]- 2274 Jul, 2013 [facility] [place] [facility] [address] [id number] [place] [address]- 9465 Jul, 2013 [facility] [place] [facility] [address] [id number] [place] [address]- 4663 Jul, 2013 [facility] [place] [facility] [address] [id number] [place] [address]- 3178 Jul, 2013 [facility] [place] [facility] [address] [id number] [place] [address]- 3492 Jul, [facility] [place] [facility] [address] [id number] [place] [address]- 2541 Jul, 2013 [facility] [place] [facility] [address] [id number] [place] [address]- 0439 Jun, [facility] [place] [facility] [address] [id number] [place] [address]- 0155 Jun, [facility] [place] [facility] [address] [id number] [place] [address]- 1705 Jun, [facility] [place] [facility] [address] [id number] [place] [address]- 3909 Jun, [facility] [place] [facility] [address] [id number] [place] [address]- 5680 Jun, [facility] [place] [facility] [address] [id number] [place] [address]- 4738 Jun, [facility] [place] [facility] [address] [id number] [place] [address]- 6401 May, [facility] [place] [facility] [address] [id number] [place] [address]- 4817 May, [facility] [place] [facility] [address] [id number] [place] [address]- 6603 May, [facility] [place] [facility] [address] [id number] [place] [address]- 0489 May, [facility] [place] [facility] [address] [id number] [place] [address]- 1709 May, [facility] [place] [facility] [address] [id number] [place] [address]- 7125 May, [facility] [place] [facility] [address] [id number] [place] [address]- 0843 Apr, [facility] [place] [facility] [address] [id number] [place] [address]- 3056 Apr, [facility] [place] [facility] [address] [id number] [place] [address]- 1945 Apr, [facility] [place] [facility] [address] [id number] [place] [address]- 8585 Apr, [facility] [place] [facility] [address] [id number] [place] [address]- 2095 Apr, [facility] [place] [facility] [address] [id number] [place] [address]- 0071 Apr, [facility] [place] [facility] [address] [id number] [place] [address]- 2691 Apr, [facility] [place] [facility] [address] [id number] [place] [address]- 6175 Apr, [facility] [place] [facility] [address] [id number] [place] [address]- 2619 Apr, [facility] [place] [facility] [address] [id number] [place] [address]- 2956 Apr, [facility] [place] [facility] [address] [id number] [place] [address]- 4022 Apr, [facility] [place] [facility] [address] [id number] [place] [address]- 6913 Apr, [facility] [place] [facility] [address] [id number] [place] [address]- 9094 Apr, [facility] [place] [facility] [address] [id number] [place] [address]- 1541 March, [facility] [place] [facility] [address] [id number] [place] [address]- 4520 March, [facility] [place] [facility] [address] [id number] [place] [address]- 1833 March, [facility] [place] [facility] [address] [id number] [place] [address]- 2644 March, [facility] [place] [facility] [address] [id number] [place] [address]- 9515 March, [facility] [place] [facility] [address] [id number] [place] [address]- 4266 March, [facility] [place] [facility] [address] [id number] [place] [address]- 3862 Feb, [facility] [place] [facility] [address] [id number] [place] [address]- 3279 Feb, [facility] [place] [facility] [address] [id number] [place] [address]- 0742 Feb, [facility] [place] [facility] [address] [id number] [place] [address]- 0175 Feb, [facility] [place] [facility] [address] [id number] [place] [address]- 8927 18 Feb, 2014 [facility] [place] [facility] [address] [id number] [place] [address]- 9974 18 Feb, 2014 [facility] [place] [facility] [address] [id number] [place] [address]- 2283 15 Feb, 2014 [facility] [place] [facility] [address] [id number] [place] [address]- 1246 15 Feb, 2014 [facility] [place] [facility] [address] [id number] [place] [address]- 5500 Feb, [facility] [place] [facility] [address] [id number] [place] [address] Feb, [facility] [place] [facility] [address] [id number] [place] [address] Jan, [facility] [place] [facility] [address] [id number] [place] [address] Jan, [facility] [place] [facility] [address] [id number] [place] [address] Jan, [facility] [place] [facility] [address] [id number] [place] [address] Jan, [facility] [place] [facility] [address] [id number] [place] [address] Dec, [facility] [place] [facility] [address] [id number] [place] [address] Dec, [facility] [place] [facility] [address] [id number] [place] [address] Sep, [facility] [place] [facility] [address] [id number] [place] [address] Sep, [facility] [place] [facility] [address] [id number] [place] [address] Aug, [facility] [place] [facility] [address] [id number] [place] [address] Aug, [facility] [address] [id number] [address] Aug, [facility] [address] [id number], [place] [address] Aug, [facility] [address] [id number], [place] [address] Aug, [facility] [address] [id number], [place] [address] May, [facility] [address] [id number], [place] [address] Jan, [facility] [id number], [place] [address] Jan, [facility] [address] [id number], [place] [address] Dec, IMMUNIZATIONS No Known Immunizations SOCIAL HISTORY Never Assessed REASON FOR VISIT Lab (walk-in) PLAN OF CARE Activity Details Pending Test PDM - 09 PANEL (PROFILE 1) VITAL SIGNS MEDICATIONS Unknown Medications RESULTS No Results PROCEDURES Procedure Date Ordered Result Body Site 09 PANEL (PROFILE 1) Sep 30, 2018 INSTRUCTIONS MEDICATIONS ADMINISTERED No Known Medications MEDICAL [...]
--- OUTSIDE RECORDS SUMMARY | 2018-10-18 19:31 | XMS REPORT ---
Author Author ÓSCAR CUMMINGS Organization [facility] Address [address] [place] [address] Care Team Providers Care Lieutenant Colonel Name Role Phone ÓSCAR CUMMINGS Unavailable PROBLEMS Type Condition ICD9-CM Code PJA18-NS Code Onset Dates Condition Status SNOMED Code Problem Intractable migraine without aura and without status migrainosus G43.019 Active 214247859 Problem Memory loss R41.3 Active 54439428 Problem Cervical disc disorder with radiculopathy, cervicothoracic region M50.13 Active 220756269 Problem Benign essential tremor G25.0 Active 238884717 Problem Other chronic pain G89.29 Active 83057721 Problem Mental status change resolved Z86.59 Active 129276065 Problem Arthritis M19.90 Active 8413266 Problem Chronic fatigue R53.82 Active 49044230 ALLERGIES Substance Reaction Event Type Date Status SulfADIAZINE Unknown Drug Allergy Aug, Active Prednisone nausea and vomiting Drug Allergy Aug, Active Morphine Sulfate nausea and vomiting Drug Allergy Aug, Active Flagyl swell Drug Allergy Aug, Active ENCOUNTERS Encounter Location Date Diagnosis [facility] [id number] [place] [address] 49647- 8825 Sep, [facility] [id number] [place] [address] 32809 -5774 Aug, Injury of left thumb, initial encounter S69.92XA [facility] [id number] [place] [address] 03158- 3636 Aug, Intractable migraine without aura and without status migrainosus G43.019 [facility] [address] [address] 9665 Jul, [facility] [id number] [place] [address] 71675- 8591 Jul, Cervical disc disorder with radiculopathy, cervicothoracic region M50.13 and Benign essential tremor G25.0 [facility] [address] 684240- 8228 14 Jul, 2018 Intractable migraine without aura and without status migrainosus G43.019 [facility] [id number] [place] [address] 23615- 2784 05 Jul, 2018 Memory loss R41.3 and Tremors of nervous system R25.1 [facility] [id number] [place] [address] 07208- 2070 28 Jun, 2018 Intractable migraine without aura and without status migrainosus G43.019 ; Memory loss R41.3 and Tremors of nervous system R25.1 [facility] [id number] [place] [address] 88607- 1244 Jun, [facility] [id number] [place] [address] 96183- 0625 Jun, Intractable migraine without aura and without status migrainosus G43.019 [facility] [id number] [place] [address] 58391- 4240 May, Intractable migraine without aura and without status migrainosus G43.019 [facility] [id number] [place] [address] 96084- 5975 May, 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 [facility] [id number] [place] [address] 70342- 5796 May, 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 [facility] [id number] [place] [address] 90802- 5869 May, 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 [facility] [id number] [place] [address] 28181 -2274 May, Pain in finger of left hand M79.645 [facility] [address] 66891- 0282 Apr, Intractable migraine without aura and without status migrainosus G43.019 [facility] [id number] [place] [address] 40952- 3479 Apr, Chronic fatigue R53.82 and Dizziness R42 [facility] [id number] [place] [address] 82802- 1146 March, [facility] [id number] [place] [address] 24364- 5119 March, Intractable migraine without aura and without status migrainosus G43.019 [facility] [id number] [place] [address] 64063- 9673 March, [facility] [id number] [place] [address] 76543- 7776 March, [facility] [id number] [place] [address] 92749- 4603 Feb, Intractable migraine without aura and without status migrainosus G43.019 [facility] [id number] [place] [address] 22358- 5264 Feb, Memory loss R41.3 and 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 [facility] [id number] [place] [address] 44077- 2981 Feb, Intractable migraine without aura and without status migrainosus G43.019 [facility] [id number] [place] [address] 78772- 1005 Jan, Intractable migraine without aura and without status migrainosus G43.019 [facility] [id number] [place] [address] 03152- 3086 Dec, [facility] [id number] [place] [address] 84809- 1918 Dec, Intractable migraine without aura and without status migrainosus G43.019 [facility] [id number] [place] [address] 40601- 9890 Nov, [facility] [address], [place] [address]- 7486 Nov, Chronic fatigue R53.82 and Family history of thyroid disease Z83.49 [facility] [id number], [place] [address] 2546 17 Nov, 2017 Arthritis M19.90 ; Chronic fatigue R53.82 ; Family history of thyroid disease Z83.49 ; Grade IV hemorrhoids K64.3 and Other chronic pain G89.29 [facility] [id number] [place] [address] 77936- 3702 Nov, Intractable migraine without aura and without status migrainosus G43.019 [facility] [id number] [place] [address] 96566- 3170 Oct, [facility] [id number] [place] [address] 82539- 7951 Oct, Intractable migraine without aura and without status migrainosus G43.019 [facility] [id number] [place] [address] 39517- 7788 Oct, [facility] [id number] [place] [address] 07092 2546 Oct, [facility] [id number] [place] [address] 21169- 6167 Sep, Tremors of nervous system R25.1 [facility] [id number] [place] [address] 23731 2546 Sep, [facility] [id number] [place] [address] 82069 2549 Sep, Intractable migraine without aura and without status migrainosus G43.019 [facility] [id number] [place] [address] 71095- 2546 Sep, [facility] [id number] [place] [address] 347759- 7765 Sep, [facility] [address], [place] [address]- 0587 Sep, Acute medial meniscus tear of right knee, initial encounter S83.241A and Acute lateral meniscus tear of left knee, initial encounter S83.282A [facility] [address] [address]- 9145 Aug, Intractable migraine without aura and without status migrainosus G43.019 [facility] [id number] [place] [address] 16335- 7426 Aug, [facility] [id number] [place] [address] 37595- 1026 Aug, [facility] [id number] [place] [address] 48875- 7606 Jul, [facility] [id number] [place] [address] 67037- 0685 Jul, [facility] [id number] [place] [address] 62691- 8150 Jul, Intractable migraine without aura and without status migrainosus G43.019 ; Memory loss R41.3 ; Mental status change resolved Z86.59 ; Other chronic pain G89.29 and Pain in right knee M25.561 [facility] [address] [address]- 6882 Jul, [facility] [id number] [place] [address] 69605- 3335 Jun, Tremors of nervous system R25.1 and Pelvic pain R10.2 [facility] [id number] [place] [address] 86899- 8708 Jun, [facility] [id number] [place] [address] 74135- 4222 Jun, [facility] [id number] [place] [address] 70837- 6836 Jun, [place] [id number] [address]- 9356 May, [facility] [id number] [place] [address] 04232- 8206 May, [facility] [address], [place] [address]- 8516 May, Kidney pain N23 [facility] [id number] [place] [address] 08490- 7956 May, Pelvic pain R10.2 [facility] [id number] [place] [address] 25796 -5926 May, Wasp sting, accidental or unintentional, initial encounter T63.461A and Allergic contact dermatitis due to other agents L23.89 [facility] [id number] [place] [address] 17535- 2886 May, [facility] [id number] [place] [address] 39836- 6298 May, Pelvic pain R10.2 [facility] [address], [place] [address]- 4281 May, [facility] [address], [place] [address]- 6390 Apr, Tremors of nervous system R25.1 ; Blood in stool, gabby K92.1 ; 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 ; Memory loss R41.3 and Intractable migraine without aura and without status migrainosus G43.019 [facility] [address], [place] [address] 2546 Apr, Blood in stool, gabby K92.1 [facility] [address], [place] [address] 2546 Apr, Tremors of nervous system R25.1 ; 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 ; Memory loss R41.3 and Intractable migraine without aura and without status migrainosus G43.019 [facility] [id number] [address]- 6478 Apr, [facility] [id number] [place] [address] 31262- 8380 Apr, Tremor R25.1 [facility] [id number] [place] [address] 80493- 1112 March, [facility] [id number] [place] [address] 22228- 5779 March, Cyst of right ovary N83.201 [facility] [id number] [place] [address] 74640- 1668 March, Blood in stool, gabby K92.1 and Other fatigue R53.83 [facility] [id number] [place] [address] 12792- 8055 March, Cyst of right ovary N83.201 [facility] [id number] [place] [address] 58138- 3137 Feb, [facility] [id number] [place] [address] 97237- 4193 Feb, [facility] [id number] [place] [address] 36962- 8330 Feb, Cyst of right ovary N83.201 and Right lower quadrant abdominal pain R10.31 [place] [id number] [place] [address] 98836- 6430 Jan, Pelvic pain R10.2 [facility] [id number] [place] [address] 95339- 0813 Jan, [facility] [id number] [place] [address] 25777- 8643 Jan, [facility] [id number] [place] [address] 34833- 1069 Jan, Left groin pain R10.30 [facility] [id number] [place] [address] 95608- 7941 Dec, [facility] [id number] [place] [address] 57585- 5996 Dec, Pelvic pain R10.2 and Lumbosacral neuritis M54.17 [facility] [id number] [place] [address] 41600- 9940 Dec, [facility] [address] 25034- 9262 Dec, Lymph node enlargement R59.9 [facility] [id number] [place] [address] 79445- 7852 Nov, Lymph node enlargement R59.9 [facility] [id number] [place] [address] 50116- 9623 Nov, [facility] [id number] [place] [address] 75578- 2104 Nov, Left groin pain R10.30 [facility] [id number] [place] [address] 00321- 3035 Nov, Varicose vein of leg I83.90 ; Essential hypertension I10 and Short lasting unilateral neuralgiform headache with conjunctival injection and tearing (SUNCT), not intractable G44.059 [facility] [id number] [place] [address] 16189 -5813 Jul, Post concussion syndrome F07.81 [facility] [id number] [place] [address] 41008- 8305 Jul, [facility] [id number] [place] [address] 81903- 2761 Oct, [facility] [id number] [place] [address] 30058- 0151 Oct, [facility] [id number] [place] [address] 83336- 1159 Aug, [facility] [id number] [address] [place] [address]- 0695 Aug, Obesity 278.00 [facility] [address], [place] [address]- 8566 Aug, [facility] [address], [place] [address]- 3866 Jul, Obesity 278.00 and Cervical spondylosis without myelopathy 721.0 [facility] [address], [place] [address]- 4122 March, [facility] [address], [place] [address]- 5310 Feb, Cervical spondylosis 721.0 [facility] [address], [place] [address]- 4208 Feb, [facility] [address], [place] [address]- 6383 Feb, [facility] [address], [place] [address]- 4349 Jan, [facility] [address], [place] [address]- 1519 Jan, [facility] [address], [place] [address]- 3653 Jan, [facility] [address], [place] [address]- 4317 Jan, [facility] [address], [place] [address]- 6278 Jan, [facility] [address], [place] [address]- 6516 Jan, [facility] [address], [place] [address]- 6806 Dec, [facility] [address], [place] [address]- 2426 Dec, [facility] [place] [facility] [id number] [place] [address]- 5988 06 Dec, 2014 [facility] [place] [facility] [address] [id number] [place] [address]- 3285 Dec, [facility] [place] [facility] [address] [id number] [place] [address]- 3134 Nov, [facility] [place] [facility] [address] [id number] [place] [address]- 3747 Nov, [facility] [place] [facility] [address] [id number] [place] [address]- 5273 16 Nov, 2014 [facility] [place] [facility] [address] [id number] [place] [address]- 4704 Nov, [facility] [place] [facility] [address] [id number] [place] [address]- 1852 Nov, [facility] [place] [facility] [address] [id number] [place] [address]- 3398 Nov, [facility] [place] [facility] [address] [id number] [place] [address]- 0811 Nov, [facility] [place] [facility] [address] [id number] [place] [address]- 4440 Nov, [facility] [place] [facility] [address] [id number] [place] [address]- 4734 10 Oct, 2014 [facility] [place] [facility] [address] [id number] [place] [address]- 1171 Oct, [facility] [place] [facility] [address] [id number] [place] [address]- 6817 Sep, [facility] [place] [facility] [address] [id number] [place] [address]- 3156 Sep, [facility] [place] [facility] [address] [id number] [place] [address]- 4748 Sep, [facility] [place] [facility] [address] [id number] [place] [address]- 8541 Sep, [facility] [place] [facility] [address] [id number] [place] [address]- 5792 Jul, 2013 [facility] [place] [facility] [address] [id number] [place] [address]- 7584 Jul, [facility] [place] [facility] [address] [id number] [place] [address]- 9935 Jul, [facility] [place] [facility] [address] [id number] [place] [address]- 5397 Jul, 2013 [facility] [place] [facility] [address] [id number] [place] [address]- 5447 Jul, [facility] [place] [facility] [address] [id number] [place] [address]- 2175 Jul, [facility] [place] [facility] [address] [id number] [place] [address]- 2536 Jul, [facility] [place] [facility] [address] [id number] [place] [address]- 0464 Jul, [facility] [place] [facility] [address] [id number] [place] [address]- 8304 Jul, [facility] [place] [facility] [address] [id number] [place] [address]- 8600 Jul, [facility] [place] [facility] [address] [id number] [address]- 7021 Jun, [facility] [place] [facility] [address] [id number], [place] [address]- 0928 Jun, [facility] [place] [facility] [address] [id number] [place] [address]- 5392 Jun, [facility] [place] [facility] [address] [id number] [place] [address]- 5814 Jun, [facility] [place] [facility] [address] [id number] [place] [address]- 3110 Jun, [facility] [place] [facility] [address] [id number] [place] [address]- 6207 Jun, [facility] [place] [facility] [address] [id number] [place] [address]- 9018 May, [facility] [place] [facility] [address] [id number] [place] [address]- 9202 May, [facility] [place] [facility] [address] [id number] [place] [address]- 6028 May, [facility] [place] [facility] [address] [id number] [place] [address]- 2065 May, [facility] [place] [facility] [address] [id number] [place] [address]- 8319 May, [facility] [place] [facility] [address] [id number] [place] [address]- 3549 May, [facility] [place] [facility] [address] [id number] [place] [address]- 5893 Apr, [facility] [place] [facility] [address] [id number] [place] [address]- 4504 Apr, [facility] [place] [facility] [address] [id number] [place] [address]- 1669 Apr, [facility] [place] [facility] [address] [id number] [place] [address]- 9368 Apr, [facility] [place] [facility] [address] [id number] [place] [address]- 4743 Apr, [facility] [place] [facility] [address] [id number] [place] [address]- 7125 Apr, [facility] [place] [facility] [address] [id number] [place] [address]- 0172 Apr, [facility] [place] [facility] [address] [id number] [place] [address]- 4175 Apr, [facility] [place] [facility] [address] [id number] [place] [address]- 3348 Apr, [facility] [place] [facility] [address] [id number] [place] [address]- 9226 Apr, [facility] [place] [facility] [address] [id number] [place] [address]- 8026 Apr, [facility] [place] [facility] [address] [id number] [place] [address]- 7281 Apr, [facility] [place] [facility] [address] [id number] [place] [address]- 6821 Apr, [facility] [place] [facility] [address] [id number] [place] [address]- 9319 March, [facility] [place] [facility] [address] [id number] [place] [address]- 4997 March, [facility] [place] [facility] [address] [id number] [place] [address]- 8373 March, [facility] [place] [facility] [address] [id number] [place] [address]- 0150 March, [facility] [place] [facility] [address] [id number] [place] [address]- 1822 March, [facility] [place] [facility] [address] [id number] [place] [address]- 6038 March, [facility] [place] [facility] [address] [id number] [place] [address]- 7375 Feb, [facility] [place] [facility] [address] [id number] [place] [address]- 8486 Feb, [facility] [place] [facility] [address] [id number] [place] [address]- 8564 Feb, [facility] [place] [facility] [address] [id number] [place] [address] Feb, [facility] [place] [facility] [address] [id number] [place] [address] Feb, [facility] [place] [facility] [address] [id number] [place] [address] 18 Feb, 2014 [facility] [place] [facility] [address] [id number] [place] [address] 15 Feb, 2014 [facility] [place] [facility] [address] [id number] [place] [address] 15 Feb, 2014 [facility] [place] [facility] [address] [id number] [place] [address] Feb, [facility] [place] [facility] [address] [id number] [place] [address] Feb, [facility] [place] [facility] [address] [id number] [place] [address] Jan, [facility] [place] [facility] [address] [id number] [place] [address] Jan, [facility] [place] [facility] [address] [id number] [place] [address] Jan, [facility] [place] [facility] [address] [id number] [place] [address] Jan, [facility] [place] [facility] [address] [id number] [place] [address] Dec, [facility] [place] [facility] [address] [id number] [place] [address] Dec, [facility] [place] [facility] [address] [id number], [place] [address] Sep, [facility] [place] [facility] [address] [id number] [place] [address] Sep, [facility] [place] [facility] [address] [id number] [place] [address] Aug, [facility] [place] [facility] [address] [id number] [place] [address] Aug, [facility] [place] [facility] [address] [id number] [place] [address] Aug, [facility] [place] [facility] [address] [facility] [id number] [place] [address] Aug, [facility] [address] [facility] [id number], [place] [address] Aug, [facility] [address] [facility] [id number], [place] [address] May, [facility] [address] [facility] [id number], [place] [address] Jan, [facility] [address] [facility] [id number], [place] [address] Jan, [facility] [address] [facility] [id number], [place] [address] Dec, IMMUNIZATIONS No Known Immunizations SOCIAL HISTORY Never Assessed REASON FOR VISIT Left thumb injured with hammer JStrasserRN PLAN OF CARE VITAL SIGNS Height 66 in 2018-09-21 Weight 165.4 lbs 2018-09-21 Temperature 98.1 degrees Fahrenheit 2018-09-21 Heart Rate 88 bpm 2018-09-21 Respiratory Rate 22 2018-09-21 BMI 26.69 kg/m2 2018-09-21 Blood pressure systolic 112 mmHg 2018-09-21 Blood pressure diastolic 70 mmHg 2018-09-21 MEDICATIONS Medication Instructions Dosage Frequency Start Date End Date Duration Status Linzess 290 MCG Orally Once a day 1 capsule 24h Active Movantik 25 MG Orally Once a day 1 tablet in the morning 24h Active Potassium Chloride ER 10 MEQ Orally Once a day 2 capsules with food 24h Active Ambien 10 mg Orally Once a day 1 tablet at bedtime as needed 24h Aug, 28 days Active Valium 5 mg Orally Twice a day 1 tablet as needed 12h Apr, Active Lasix 20 mg Orally Once a day 1/2 tablet 24h Active Propranolol HCl 10 MG Orally Once a day 1 tablet on an empty stomach 24h Jul, 30 day(s) Active Diazepam 5 mg Orally Twice a day 1 tablet as needed 12h 28 days Active Oxycodone HCl 10 mg Orally 4 times a day 1 tablet as needed 6h 11 Aug, 2018 28 days Active RESULTS Name Result Date Reference Range Xray : Hand, Left 3 views (IN HOUSE) 2018-09-21 PROCEDURES Procedure Date Ordered Result Body Site X-RAY EXAM OF HAND Sep 21, 2018 INSTRUCTIONS MEDICATIONS ADMINISTERED No Known Medications [...]
--- OUTSIDE RECORDS SUMMARY | 2018-10-18 19:31 | XMS REPORT ---
Author Author FLORENCIA HINOJOSA Organization [facility] Address [address] [place] [address] Care Team Providers Care X Ray Technologist Name Role Phone FLORENCIA HINOJOSA Unavailable PROBLEMS Type Condition ICD9-CM Code OSH52-PL Code Onset Dates Condition Status SNOMED Code Problem Intractable migraine without aura and without status migrainosus G43.019 Active 528900058 Problem Memory loss R41.3 Active 58008645 Problem Cervical disc disorder with radiculopathy, cervicothoracic region M50.13 Active 715103092 Problem Benign essential tremor G25.0 Active 464629450 Problem Other chronic pain G89.29 Active 75806871 Problem Mental status change resolved Z86.59 Active 910021889 Problem Arthritis M19.90 Active 1249318 Problem Chronic fatigue R53.82 Active 49813901 ALLERGIES No Information ENCOUNTERS Encounter Location Date Diagnosis [place] [address] [address] Aug, Intractable migraine without aura and without status migrainosus G43.019 [place] [address] [address] [place] [id number] [place] [address] 89216- 3287 25 Jul, 2018 [place] [address] [place] [id number] [place] [address] 92625- 7749 19 Jul, 2018 Cervical disc disorder with radiculopathy, cervicothoracic region M50.13 and Benign essential tremor G25.0 [facility] [address] [address]- [address]68 14 Jul, 2018 Intractable migraine without aura and without status migrainosus G43.019 [place] [address] [address] [place] [id number] [place] [address] 92564- 5396 05 Jul, 2018 Memory loss R41.3 and Tremors of nervous system R25.1 [place] [id number] [place] [address] 05764- 5933 Jun, Intractable migraine without aura and without status migrainosus G43.019 ; Memory loss R41.3 and Tremors of nervous system R25.1 [facility] [address] [place] [id number] [place] [address] 49728- 6676 Jun, [facility] [address] [place] [id number] [place] [address] 48942- 6966 Jun, Intractable migraine without aura and without status migrainosus G43.019 [facility] [address] [place] [id number] [place] [address] 77835- 7123 May, Intractable migraine without aura and without status migrainosus G43.019 [facility] [address] [place] [id number] [place] [address] 62976- 6196 May, 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 [facility] [address] [place] [id number] [place] [address] 26893- 0906 May, 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 [facility] [address] [place] [id number] [place] [address] 73219- 4240 May, 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 [facility] [address] [place] [id number] [place] [address] 95673 -4344 May, Pain in finger of left hand M79.645 [facility] [address] [place] [id number] [place] [address] 51964- 7835 Apr, Intractable migraine without aura and without status migrainosus G43.019 [facility] [address] [place] [id number] [place] [address] 27499- 5575 Apr, Chronic fatigue R53.82 and Dizziness R42 [facility] [address] [place] [id number] [place] [address] 50319- 3183 March, [facility] [address] [place] [id number] [place] [address] 58502- 5809 March, Intractable migraine without aura and without status migrainosus G43.019 [facility] [address] [address] 5538 March, [facility] [address] [place] [id number] [place] [address] March, [facility] [address] [place] [id number] [place] [address] 83107- 4471 Feb, Intractable migraine without aura and without status migrainosus G43.019 [facility] [id number] [place] [address] 58621- 7966 Feb, Memory loss R41.3 and 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 [place] [address] [place] [id number] [place] [address] 19940- 9923 Feb, Intractable migraine without aura and without status migrainosus G43.019 [place] [address] [place] [id number] [place] [address] 93971- 5334 Jan, Intractable migraine without aura and without status migrainosus G43.019 [place] [address] [place] [id number] [place] [address] 09946- 7495 Dec, [place] [address] [place] [id number] [place] [address] 50282- 5504 Dec, Intractable migraine without aura and without status migrainosus G43.019 [place] [address] [place] [id number] [place] [address] 20978- 7911 Nov, [place] [id number] [place] [address] 97689- 1104 Nov, Chronic fatigue R53.82 and Family history of thyroid disease Z83.49 [place] [address] [place] [id number] [place] [address] 09913- 1429 Nov, Arthritis M19.90 ; Chronic fatigue R53.82 ; Family history of thyroid disease Z83.49 ; Grade IV hemorrhoids K64.3 and Other chronic pain G89.29 [place] [address] [address] [facility] [id number] [address]- 6216 Nov, Intractable migraine without aura and without status migrainosus G43.019 [facility] [address] [facility] [id number] [address] 2546 Oct, [facility] [address] [place] [id number] [address] 2546 Oct, Intractable migraine without aura and without status migrainosus G43.019 [facility] [address] [facility] [id number] [place] [address] 2546 Oct, [facility] [address] [place] [id number] [place] [address] 66601- 5836 Oct, [facility] [address] [place] [id number] [address]- 2548 Sep, Tremors of nervous system R25.1 [facility] [address] [place] [id number] [place] [address] 01164 2546 Sep, [facility] [address] [place] [id number] [place] [address] 43276- 2546 Sep, Intractable migraine without aura and without status migrainosus G43.019 [facility] [address] [place] [id number] [address]- 2546 Sep, [facility] [address] [place] [id number] [address] 2546 Sep, [facility] [address] [facility] [id number] [place] [address] 2546 Sep, Acute medial meniscus tear of right knee, initial encounter S83.241A and Acute lateral meniscus tear of left knee, initial encounter S83.282A [facility] [address] [place] [id number] [address]- 2546 Aug, Intractable migraine without aura and without status migrainosus G43.019 [facility] [address] [place] [id number] [place] [address] 11485- 8981 Aug, [facility] [address] [address]- 6624 Aug, [facility] [id number] [place] [address] 326682- 5396 Jul, [facility] [address] [place] [id number] [place] [address] 36251- 2826 Jul, [facility] [address] [place] [id number] [place] [address] 509183- 3647 Jul, Intractable migraine without aura and without status migrainosus G43.019 ; Memory loss R41.3 ; Mental status change resolved Z86.59 ; Other chronic pain G89.29 and Pain in right knee M25.561 [facility] [address] [place] [id number] [place] [address] 95602- 3444 Jul, [facility] [address] [place] [id number] [place] [address] 41544- 2190 Jun, Tremors of nervous system R25.1 and Pelvic pain R10.2 [facility] [id number] [place] [address] 04549- 1240 Jun, [facility] [address] [place] [id number] [place] [address] 91739- 3199 Jun, [facility] [id number] [place] [address] 56635- 6339 Jun, [facility] [address] [place] [id number] [place] [address] 20221- 9064 May, [facility] [id number] [place] [address] 39066- 2775 May, [facility] [id number] [place] [address] 02208- 5407 May, Kidney pain N23 [facility] [id number] [place] [address] 76604- 4049 May, Pelvic pain R10.2 [facility] [address] [address] -[address] May, Wasp sting, accidental or unintentional, initial encounter T63.461A and Allergic contact dermatitis due to other agents L23.89 [facility] [address] [place] [address] 99675- 3173 May, [facility] [address] [place] [id number] [place] [address] 92036- 6926 May, Pelvic pain R10.2 [facility] [address] [place] [id number] [place] [address] 28890- 1374 May, [facility] [address] [place] [id number] [place] [address] 89170- 8837 Apr, Tremors of nervous system R25.1 ; Blood in stool, gabby K92.1 ; 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 ; Memory loss R41.3 and Intractable migraine without aura and without status migrainosus G43.019 [facility] [address] [place] [id number] [place] [address] 32386- 4091 Apr, Blood in stool, gabby K92.1 [facility] [address] [place] [id number] [place] [address] 92314- 0585 Apr, Tremors of nervous system R25.1 ; 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 ; Memory loss R41.3 and Intractable migraine without aura and without status migrainosus G43.019 [facility] [id number] [place] [address] 19943- 7357 Apr, [facility] [address] [place] [id number] [place] [address] 18768- 3786 Apr, Tremor R25.1 [facility] [address] [place] [id number] [place] [address] 69817- 7381 March, [facility] [address] [place] [id number] [place] [address] 38480- 3937 March, Cyst of right ovary N83.201 [facility] [address] [place] [id number] [place] [address] 18981- 4786 March, Blood in stool, gabby K92.1 and Other fatigue R53.83 [facility] [address] [place] [id number] [place] [address] 83778- 1981 March, Cyst of right ovary N83.201 [facility] [address] [place] [id number] [place] [address] 94072- 4086 Feb, [facility] [address] [place] [id number] [place] [address] 87859- 8366 Feb, [facility] [address] 70477- 4650 Feb, Cyst of right ovary N83.201 and Right lower quadrant abdominal pain R10.31 [facility] [address] [place] [id number] [place] [address] 45671- 5951 Jan, Pelvic pain R10.2 [facility] [address] [place] [id number] [place] [address] 82247- 7174 Jan, [facility] [address] 16967- 0028 Jan, [facility] [address] [place] [id number] [place] [address] 09958- 4395 Jan, Left groin pain R10.30 [facility] [address] [place] [id number] [place] [address] 00248- 4323 Dec, [facility] [address] [place] [id number] [place] [address] 61210- 2256 Dec, Pelvic pain R10.2 and Lumbosacral neuritis M54.17 [facility] [address] [place] [id number] [place] [address] 98692- 8023 Dec, [facility] [address] [place] [id number] [place] [address] 20316- 5723 Dec, Lymph node enlargement R59.9 [facility] [address] [place] [id number] [place] [address] 85727- 2971 Nov, Lymph node enlargement R59.9 [facility] [address] [place] [id number] [place] [address] 92687- 3431 Nov, [facility] [address] [place] [id number] [place] [address] 91094- 0496 Nov, Left groin pain R10.30 [facility] [address] 97499- 9627 Nov, Varicose vein of leg I83.90 ; Essential hypertension I10 and Short lasting unilateral neuralgiform headache with conjunctival injection and tearing (SUNCT), not intractable G44.059 [facility] [address] [place] [id number] [place] [address] 78303 -3926 07 Jul, 2016 Post concussion syndrome F07.81 [facility] [address] 90463- 3336 Jul, [facility] [address] 24166- 0844 Oct, [facility] [address] 97973- 4879 Oct, [facility] [address] [place] [id number] [place] [address] 00426- 4329 Aug, [facility] [address] [place] [id number] [place] [address] 62876- 5653 Aug, Obesity 278.00 [facility] [address] [place] [id number] [place] [address] 00959- 4458 Aug, [facility] [address] 72378- 4651 Jul, Obesity 278.00 and Cervical spondylosis without myelopathy 721.0 [facility] [address] [place] [id number] [place] [address] 01610- 2821 March, [facility] [place] [facility] [address] [id number] [place] [address]- 6938 30 Feb, 2015 Cervical spondylosis 721.0 [facility] [place] [facility] [address] [id number] [place] [address]- 4523 14 Feb, 2015 [facility] [place] [facility] [address] [facility] [id number] [place] [address]- 2421 Feb, [facility] [place] [facility] [address] [id number] [place] [address]- 1088 Jan, [facility] [place] [facility] [address] [id number] [place] [address]- 1108 Jan, [facility] [place] [facility] [address] [id number] [place] [address]- 4083 Jan, [facility] [place] [facility] [address] [facility] [id number] [place] [address]- 3029 Jan, [facility] [place] [facility] [address] [facility] [id number] [place] [address]- 0817 Jan, [facility] [place] [facility] [address] [facility] [id number] [place] [address]- 9706 Jan, [facility] [place] [facility] [address] [facility] [id number] [place] [address]- 6018 Dec, [facility] [place] [facility] [address] [facility] [id number] [place] [address]- 1871 Dec, [facility] [place] [facility] [address] [facility] [id number] [place] [address]- 5142 Dec, [facility] [place] [facility] [address] [facility] [id number] [place] 7458 Dec, [facility] [place] [facility] [address] [facility] [id number] [place] [address]- 5774 Nov, [facility] [place] [facility] [address] [facility] [id number] [place] [address]- 1695 Nov, [facility] [place] [facility] [address] [facility] [id number] [place] [address]- 2088 16 Nov, 2014 [facility] [place] [facility] [address] [id number] [place] [address]- 7139 15 Nov, 2014 [facility] [place] [facility] [address] [id number] [place] [address]- 5203 14 Nov, 2014 [facility] [place] [facility] [address] [id number] [place] [address]- 2564 14 Nov, 2014 [facility] [place] [facility] [address] [id number] [place] [address]- 8817 12 Nov, 2014 [facility] [place] [facility] [address] [id number] [place] [address]- 1150 Nov, [facility] [place] [facility] [address] [id number] [place] [address]- 5766 Oct, [facility] [place] [facility] [address] [id number] [place] [address]- 8472 Oct, [facility] [place] [facility] [address] [id number] [place] [address]- 4090 Sep, [facility] [place] [facility] [address] [id number] [place] [address]- 4859 Sep, [facility] [place] [facility] [address] [id number] [place] [address]- 7557 Sep, [facility] [place] [facility] [address] [id number] [place] [address]- 0823 Sep, [facility] [place] [facility] [address] [id number] [place] [address]- 8637 29 Jul, 2014 [facility] [place] [facility] [address] [id number] [place] [address]- 6316 29 Jul, 2014 [facility] [place] [facility] [address] [id number] [place] [address]- 8139 Jul, [facility] [place] [facility] [address] [id number] [place] [address]- 8174 Jul, [facility] [place] [facility] [address] [id number] [place] [address]- 5262 Jul, 2013 [facility] [place] [facility] [address] [id number] [place] [address]- 0154 Jul, [facility] [place] [facility] [address] [id number] [place] [address]- 2154 Jul, [facility] [place] [facility] [address] [id number] [place] [address]- 9062 Jul, [facility] [place] [facility] [address] [id number] [place] [address]- 0578 Jul, [facility] [place] [facility] [address] [id number] [place] [address]- 3319 Jul, [facility] [place] [facility] [address] [id number] [place] [address]- 8957 Jun, [facility] [place] [facility] [address] [id number] [place] [address]- 5420 Jun, [facility] [place] [facility] [address] [id number] [place] [address]- 0867 Jun, [facility] [place] [facility] [address] [id number] [place] [address]- 4788 Jun, [facility] [place] [facility] [address] [id number] [place] [address]- 3518 Jun, [facility] [place] [facility] [address] [id number] [place] [address]- 0279 Jun, [facility] [place] [facility] [address] [id number] [place] [address]- 0119 May, [facility] [place] [facility] [address] [id number] [place] [address]- 0296 May, [facility] [place] [facility] [address] [id number] [place] [address]- 1101 May, [facility] [place] [facility] [address] [id number] [place] [address]- 0813 May, [facility] [place] [facility] [address] [id number] [place] [address]- 6520 May, [facility] [place] [facility] [address] [id number] [place] [address]- 1129 May, [facility] [place] [facility] [address] [id number] [place] [address]- 9304 24 Apr, 2014 [facility] [place] [facility] [address] [id number] [place] [address]- 8651 Apr, [facility] [place] [facility] [address] [id number] [place] [address]- 9502 Apr, [facility] [place] [facility] [address] [id number] [place] [address]- 5243 Apr, [facility] [place] [facility] [address] [id number] [place] [address]- 1059 Apr, [facility] [place] [facility] [address] [id number] [place] [address]- 5400 Apr, [facility] [place] [facility] [address] [id number] [place] [address]- 2032 Apr, [facility] [place] [facility] [address] [id number] [place] [address]- 1869 Apr, [facility] [place] [facility] [address] [id number] [place] [address]- 3096 05 Apr, 2014 [facility] [place] [facility] [address] [id number] [place] [address]- 9488 Apr, [facility] [place] [facility] [address] [id number] [place] [address]- 2810 Apr, [facility] [place] [facility] [address] [id number] [place] [address]- 8694 Apr, [facility] [place] [facility] [address] [id number] [place] [address] Apr, [facility] [place] [facility] [address] [id number] [place] [address] March, [facility] [address] [id number] [place] [address] March, [facility] [place] [facility] [address] [id number] [place] [address] March, [facility] [address] [id number] [place] [address] March, [facility] [address] [id number] [place] [address] March, [facility] [address] [id number] [place] [address] March, [facility] [address] [id number] [place] [address] Feb, [facility] [address] [id number] [place] [address] Feb, [facility] [address] [id number] [place] [address] Feb, [facility] [address] [id number] [place] [address] Feb, [facility] [address] [id number] [place] [address] Feb, [facility] [place] [facility] [address] [id number] [place] [address] Feb, [facility] [place] [facility] [address] [id number] [place] [address] 15 Feb, 2014 [facility] [place] [facility] [address] [id number] [place] [address] 15 Feb, 2014 [facility] [place] [facility] [address] [id number] [place] [address] Feb, [facility] [place] [facility] [address] [id number] [place] [address] Feb, [facility] [place] [facility] [address] [id number] [place] [address] Jan, [facility] [place] [facility] [address] [id number] [place] [address] Jan, [facility] [place] [facility] [address] [id number] [place] [address] Jan, [facility] [place] [facility] [address] [id number] [place] [address] Jan, [facility] [place] [facility] [address] [id number] [place] [address] Dec, [facility] [place] [facility] [address] [id number] [place] [address] Dec, [facility] [place] [facility] [address] [id number] [place] [address] Sep, [facility] [place] [facility] [address] [id number] [place] [address] Sep, [facility] [place] [facility] [address] [id number] [place] [address] Aug, [facility] [place] [facility] [address] [id number] [place] [address] Aug, [facility] [place] [facility] [address] [id number] [place] [address] Aug, [facility] [place] [facility] [address] [id number] [place] [address] Aug, [facility] [place] [facility] [address] [id number] [place] [address] Aug, [facility] [place] [facility] [address] [id number] [place] [address] May, [facility] [place] [facility] [address] [id number] [place] [address] Jan, [facility] [place] [facility] [address] [facility] [id number] [place] [address] Jan, [facility] [address] [facility] [id number] [place] [address] Dec, IMMUNIZATIONS No Known Immunizations SOCIAL HISTORY Never Assessed REASON FOR VISIT Controlled Med Refill 09/03/18 PLAN OF CARE VITAL SIGNS MEDICATIONS Medication Instructions Dosage Frequency Start Date End Date Duration Status Ambien 10 mg Orally Once a day 1 tablet at bedtime as needed 24h Aug, 28 days Active Oxycodone HCl 10 mg Orally 4 times a day 1 tablet as needed 6h Aug, 28 days Active RESULTS No Results [...] bladder sling May 2018 Hospitalization History No Hospitalization history information
--- OUTSIDE RECORDS SUMMARY | 2018-10-18 19:31 | XMS REPORT ---
Author Author FLORENCIA HINOJOSA Organization [facility] Address [address] [place] [address] Care Team Providers Care Audit Machine Operator Name Role Phone FLORENCIA HINOJOSA Unavailable PROBLEMS Type Condition ICD9-CM Code [id number] Code Onset Dates Condition Status SNOMED Code Problem Intractable migraine without aura and without status migrainosus G43.019 Active 427964922 Problem Memory loss R41.3 Active 09808669 Problem Cervical disc disorder with radiculopathy, cervicothoracic region M50.13 Active 502879155 Problem Benign essential tremor G25.0 Active 557775640 Problem Other chronic pain G89.29 Active 00474362 Problem Mental status change resolved Z86.59 Active 482488631 Problem Arthritis M19.90 Active 5912143 Problem Chronic fatigue R53.82 Active [id number] ALLERGIES No Information ENCOUNTERS Encounter Location Date Diagnosis [place] [address] 660[address]- [address]687 25 Jul, 2018 [place] [address] 63000- 8007 19 Jul, 2018 Cervical disc disorder with radiculopathy, cervicothoracic region M50.13 and Benign essential tremor G25.0 [place] [address] [place] [id number] [place] [address] 33678- 0539 14 Jul, 2018 Intractable migraine without aura and without status migrainosus G43.019 [place] [address] [id number] [place] [address] 79980- 6651 05 Jul, 2018 Memory loss R41.3 and Tremors of nervous system R25.1 [place] [address] [id number] [place] [address] 45915- 0418 Jun, Intractable migraine without aura and without status migrainosus G43.019 ; Memory loss R41.3 and Tremors of nervous system R25.1 [facility] [id number] [place] [address] 30818- 5383 Jun, [facility] [id number] [place] [address] 23350- 2186 Jun, Intractable migraine without aura and without status migrainosus G43.019 [facility] [id number] [place] [address] 26509- 4615 May, Intractable migraine without aura and without status migrainosus G43.019 [facility] [id number] [place] [address] 43786- 5041 May, 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 [facility] [id number] [place] [address] 49314- 5916 May, 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 [facility] [id number] [place] [address] 95610- 6958 May, 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 [facility] [id number] [place] [address] 91982 -3184 May, Pain in finger of left hand M79.645 [facility] [id number] [place] [address] 51995- 9491 Apr, Intractable migraine without aura and without status migrainosus G43.019 [facility] [id number] [place] [address] 72307- 9337 Apr, Chronic fatigue R53.82 and Dizziness R42 [facility] [id number] [place] [address] 44169- 2260 March, [facility] [id number] [place] [address] 00375- 0786 March, Intractable migraine without aura and without status migrainosus G43.019 [facility] [id number] [place] [address] 26569- 7610 March, [facility] [id number] [address] 16[address] March, [place] [address] [id number] [place] [address] 12266- 1370 Feb, Intractable migraine without aura and without status migrainosus G43.019 [place] [id number] [place] [address] 20224- 5616 Feb, Memory loss R41.3 and 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 [place] [address] [place] [id number] [place] [address] 14130- 7265 Feb, Intractable migraine without aura and without status migrainosus G43.019 [place] [address] [place] [id number] [place] [address] 45837- 0772 Jan, Intractable migraine without aura and without status migrainosus G43.019 [place] [address] [id number] [place] [address] 01061- 3250 Dec, [place] [address] [place] [id number] [place] [address] 27415- 4424 Dec, Intractable migraine without aura and without status migrainosus G43.019 [place] [address] [id number] [place] [address] 15370- 3365 Nov, [place] [address] [place] [id number] [place] [address] 14649- 9822 Nov, Chronic fatigue R53.82 and Family history of thyroid disease Z83.49 [place] [id number] [place] [address] 50731- 0510 Nov, Arthritis M19.90 ; Chronic fatigue R53.82 ; Family history of thyroid disease Z83.49 ; Grade IV hemorrhoids K64.3 and Other chronic pain G89.29 [place] [id number] [place] [address] 96245- 2986 Nov, Intractable migraine without aura and without status migrainosus G43.019 [place] [address] [facility] [id number] [address]- 9186 Oct, [facility] [address] [id number] [address] 6626 Oct, Intractable migraine without aura and without status migrainosus G43.019 [facility] [id number] [address] 2546 Oct, [facility] [id number] [address] 2546 Oct, [facility] [address] [place] [id number] [address]- 6586 Sep, Tremors of nervous system R25.1 [facility] [address], [place] [address]- 1656 Sep, [facility] [address] [id number] [place] [address] 16097- 6836 Sep, Intractable migraine without aura and without status migrainosus G43.019 [facility] [address] [place] [id number] [address] 2546 Sep, [facility] [address] [id number] [address]- 2546 Sep, [facility] [address] [place] [id number] [address]- 2606 Sep, Acute medial meniscus tear of right knee, initial encounter S83.241A and Acute lateral meniscus tear of left knee, initial encounter S83.282A [facility] [address] [place] [id number], [place] [address]- 2546 Aug, Intractable migraine without aura and without status migrainosus G43.019 [facility] [id number] [address] 2546 Aug, [facility] [address] [id number] [address]- 2546 Aug, [facility] [address], [place] [address]- 8109 Jul, [facility] [address] [id number] [place] [address] 84561- 1898 Jul, [facility] [address] [id number] [place] [address] 87912- 3143 Jul, Intractable migraine without aura and without status migrainosus G43.019 ; Memory loss R41.3 ; Mental status change resolved Z86.59 ; Other chronic pain G89.29 and Pain in right knee M25.561 [facility] [address] [id number] [place] [address] 55448- 3630 Jul, [facility] [address] [id number] [place] [address] 22652- 3592 Jun, Tremors of nervous system R25.1 and Pelvic pain R10.2 [facility] [address] [id number] [place] [address] 11713- 0597 Jun, [facility] [address] [place] [id number] [place] [address] 15740- 3849 Jun, [facility] [address] [place] [id number] [place] [address] 95586- 0791 Jun, [facility] [address] [id number] [place] [address] 53570- 8352 May, [facility] [address] [place] [id number] [place] [address] 73254- 4261 May, [facility] [address] [id number] [place] [address] 59404- 0716 May, Kidney pain N23 [facility] [address] [place] [id number] [place] [address] 79680- 5622 May, Pelvic pain R10.2 [facility] [id number] [place] [address] 74379 -5892 May, Wasp sting, accidental or unintentional, initial encounter T63.461A and Allergic contact dermatitis due to other agents L23.89 [facility] [address] [place] [id number] [place] [address] 12973- 2086 May, [facility] [address] [place] [id number] [place] [address] 08180- 5846 May, Pelvic pain R10.2 [facility] [address] [place] [id number] [place] [address] 56728- 3940 May, [facility] [address] [id number] [place] [address] 24958- 2688 Apr, Tremors of nervous system R25.1 ; Blood in stool, gabby K92.1 ; 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 ; Memory loss R41.3 and Intractable migraine without aura and without status migrainosus G43.019 [place] [address] [place] [id number] [place] [address] 81211- 4048 Apr, Blood in stool, gabby K92.1 [place] [address] [place] [id number] [place] [address] 45596- 5352 Apr, Tremors of nervous system R25.1 ; 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 ; Memory loss R41.3 and Intractable migraine without aura and without status migrainosus G43.019 [place] [id number] [place] [address] 78465- 1544 Apr, [place] [address] [place] [id number] [place] [address] 61009- 2548 Apr, Tremor R25.1 [place] [address] [place] [id number] [place] [address] 64251- 4482 March, [place] [address] [place] [id number] [place] [address] 18872- 7146 March, Cyst of right ovary N83.201 [facility] [address] [id number] [place] [address] 05561- 1087 March, Blood in stool, gabby K92.1 and Other fatigue R53.83 [facility] [id number] [place] [address] 57408- 6908 March, Cyst of right ovary N83.201 [facility] [id number] [place] [address] 66947- 2256 Feb, [facility] [address] [place] [id number] [place] [address] 06660- 5226 Feb, [facility] [address] [place] [id number] [place] [address] 64763- 1912 Feb, Cyst of right ovary N83.201 and Right lower quadrant abdominal pain R10.31 [facility] [address] [place] [id number] [place] [address] 37121- 4653 Jan, Pelvic pain R10.2 [facility] [address] [place] [id number] [place] [address] 65561- 8960 Jan, [facility] [address] [place] [id number] [place] [address] 65626- 3632 Jan, [facility] [address] [place] [id number] [place] [address] 38582- 9469 Jan, Left groin pain R10.30 [facility] [address] [place] [id number] [place] [address] 88702- 1165 Dec, [facility] [address] [place] [id number] [place] [address] 00407- 7149 Dec, Pelvic pain R10.2 and Lumbosacral neuritis M54.17 [facility] [address] [place] [id number] [place] [address] 45818- 7666 Dec, [facility] [address] [place] [id number] [place] [address] 56751- 7546 Dec, Lymph node enlargement R59.9 [facility] [id number] [place] [address] 31846- 7602 Nov, Lymph node enlargement R59.9 [facility] [address] [place] [id number] [place] [address] 32592- 0455 Nov, [facility] [address] [place] [id number] [place] [address] 01968- 9361 Nov, Left groin pain R10.30 [facility] [address] [place] [id number] [place] [address] 17103- 0904 Nov, Varicose vein of leg I83.90 ; Essential hypertension I10 and Short lasting unilateral neuralgiform headache with conjunctival injection and tearing (SUNCT), not intractable G44.059 [facility] [id number] [place] [address] 44547 -1009 07 Jul, 2016 Post concussion syndrome F07.81 [facility] [address] [id number] [place] [address] 95832- 1351 07 Jul, 2016 [facility] [address] [place] [id number] [place] [address] 43704- 4220 Oct, [facility] [address] [id number] [place] [address] 14528- 0923 Oct, [facility] [address] [place] [id number] [place] [address] 79928- 8858 Aug, [facility] [id number] [place] [address] 60229- 4937 Aug, Obesity 278.00 [facility] [address] [place] [id number] [place] [address] 47260- 2619 Aug, [facility] [address] [place] [id number] [place] [address] 37117- 6617 28 Jul, 2015 Obesity 278.00 and Cervical spondylosis without myelopathy 721.0 [facility] [address] [id number] [place] [address] 01516- 2330 March, [facility] [address] [id number] [place] [address] 62911- 6048 Feb, Cervical spondylosis 721.0 [facility] [address] [place] [id number] [place] [address]- 6379 14 Feb, 2015 [facility] [address] [id number] [place] [address]- 6635 13 Feb, 2015 [facility] [place] [facility] [address] [id number] [place] [address]- 3691 Jan, [facility] [place] [facility] [address] [id number] [place] [address]- 0129 Jan, [facility] [place] [facility] [address] [id number] [place] [address]- 9939 Jan, [facility] [place] [facility] [address] [id number] [place] [address]- 9829 Jan, [facility] [place] [facility] [address] [id number] [place] [address]- 9780 Jan, [facility] [place] [facility] [address] [id number] [place] [address]- 8511 Jan, [facility] [place] [facility] [address] [id number] [place] [address]- 6561 Dec, [facility] [place] [facility] [address] [id number] [place] [address]- 0370 Dec, [facility] [place] [facility] [address] [id number] [place] [address]- 9406 Dec, [facility] [place] [facility] [address] [id number] [place] [address]- 7751 Dec, [facility] [place] [facility] [address] [id number] [place] [address]- 1841 Nov, [facility] [place] [facility] [address] [id number] [place] [address]- 5809 Nov, [facility] [place] [facility] [address] [id number] [place] [address]- 2546 Nov, [facility] [place] [facility] [address] [id number] [place] [address]- 7968 Nov, [facility] [place] [facility] [address] [id number] [place] [address]- 9223 Nov, [facility] [place] [facility] [address] [id number] [place] [address]- 2276 14 Nov, 2014 [facility] [place] [facility] [address] [id number] [place] [address]- 8012 Nov, [facility] [place] [facility] [address] [id number] [place] [address]- 6772 Nov, [facility] [place] [facility] [address] [id number] [place] [address]- 5431 Oct, [facility] [place] [facility] [address] [id number] [place] [address]- 6072 Oct, [facility] [place] [facility] [address] [id number] [place] [address]- 0000 Sep, [facility] [place] [facility] [address] [id number] [place] [address]- 2119 Sep, [facility] [place] [facility] [address] [id number] [place] [address]- 5290 Sep, [facility] [place] [facility] [address] [id number] [place] [address]- 4684 Sep, [facility] [place] [facility] [address] [id number] [place] [address]- 1800 29 Jul, 2014 [facility] [place] [facility] [address] [id number] [place] [address]- 7003 29 Jul, 2014 [facility] [place] [facility] [address] [id number] [place] [address]- 0854 26 Jul, 2014 [facility] [place] [facility] [address] [id number] [place] [address]- 3447 26 Jul, 2014 [facility] [place] [facility] [address] [id number] [place] [address]- 3942 19 Jul, 2014 [facility] [place] [facility] [address] [id number] [place] [address]- 8327 Jul, 2013 [facility] [place] [facility] [address] [id number] [place] [address]- 5150 Jul, [facility] [place] [facility] [address] [id number] [place] [address]- 5394 Jul, [facility] [place] [facility] [address] [id number] [place] [address]- 1438 Jul, [facility] [place] [facility] [address] [id number] [place] [address]- 2172 Jul, [facility] [place] [facility] [address] [id number] [place] [address]- 0456 Jun, [facility] [place] [facility] [address] [id number] [place] [address]- 8208 Jun, [facility] [place] [facility] [address] [id number] [place] [address]- 5657 Jun, [facility] [place] [facility] [address] [id number] [place] [address]- 2084 Jun, [facility] [place] [facility] [address] [id number] [place] [address]- 2873 Jun, [facility] [place] [facility] [address] [id number] [place] [address]- 7744 Jun, [facility] [place] [facility] [address] [id number] [place] [address]- 1867 May, [facility] [place] [facility] [address] [id number] [place] [address]- 6280 May, [facility] [place] [facility] [address] [id number] [place] [address]- 5129 May, [facility] [place] [facility] [address] [id number] [place] [address]- 8746 May, [facility] [place] [facility] [address] [id number] [place] [address]- 0509 May, [facility] [place] [facility] [address] [id number] [place] [address]- 2480 May, [facility] [place] [facility] [address] [id number] [place] [address]- 6510 Apr, [facility] [place] [facility] [address] [id number] [place] [address]- 5425 Apr, [facility] [place] [facility] [address] [id number] [place] [address]- 1909 Apr, [facility] [place] [facility] [address] [id number] [place] [address]- 6102 Apr, [facility] [place] [facility] [address] [id number] [place] [address]- 3370 Apr, [facility] [place] [facility] [address] [id number] [place] [address]- 0222 Apr, [facility] [place] [facility] [address] [id number] [place] [address]- 7614 Apr, [facility] [place] [facility] [address] [id number] [place] [address]- 3015 Apr, [facility] [place] [facility] [address] [id number] [place] [address]- 4074 Apr, [facility] [place] [facility] [address] [id number] [place] [address]- 1940 Apr, [facility] [place] [facility] [address] [id number] [place] [address]- 6860 Apr, [facility] [place] [facility] [address] [id number] [place] [address]- 5878 Apr, [facility] [place] [facility] [address] [id number] [place] [address]- 7903 Apr, [facility] [place] [facility] [address] [id number] [place] [address]- 3642 March, [facility] [place] [facility] [address] [id number] [place] [address]- 8393 March, [facility] [place] [facility] [address] [id number] [place] [address]- 6835 March, [facility] [place] [facility] [address] [id number] [place] [address]- 0039 March, [facility] [place] [facility] [address] [id number] [place] [address]- 7856 March, [facility] [place] [facility] [address] [id number] [place] [address]- 6445 March, [facility] [place] [facility] [address] [id number] [place] [address]- 5340 Feb, [facility] [place] [facility] [address] [id number] [place] [address]- 1642 Feb, [facility] [place] [facility] [address] [id number] [place] [address]- 5208 Feb, [facility] [place] [facility] [address] [id number] [place] [address]- 2697 Feb, [facility] [place] [facility] [address] [id number] [place] [address]- 6588 Feb, [facility] [place] [facility] [address] [id number] [place] [address]- 8301 Feb, [facility] [place] [facility] [address] [id number] [place] [address] Feb, [facility] [place] [facility] [address] [id number] [place] [address] 15 Feb, 2014 [facility] [place] [facility] [address] [id number] [place] [address] Feb, [facility] [place] [facility] [address] [id number] [place] [address] Feb, [facility] [place] [facility] [address] [id number] [place] [address] 24 Jan, 2014 [facility] [place] [facility] [address] [id number] [place] [address] Jan, [facility] [address] [id number] [place] [address] Jan, [facility] [place] [facility] [address] [id number] [place] [address] Jan, [facility] [place] [facility] [address] [id number] [place] [address] Dec, [facility] [place] [facility] [address] [id number] [place] [address] Dec, [facility] [place] [facility] [address] [id number] [place] [address] Sep, [facility] [place] [facility] [address] [id number] [place] [address] Sep, [facility] [place] [facility] [address] [id number] [place] [address] Aug, [facility] [address] [id number] [place] [address] Aug, [facility] [place] [facility] [address] [id number] [place] [address] Aug, [facility] [address] [id number] [place] [address] Aug, [facility] [place] [facility] [address] [id number] [place] [address] Aug, [facility] [place] [facility] [address] [id number] [place] [address] May, [facility] [place] [facility] [address] [id number] [place] [address] Jan, [facility] [place] [facility] [address] [id number] [place] [address] Jan, [facility] [place] [facility] [address] [id number] [place] [address] Dec, IMMUNIZATIONS No Known Immunizations SOCIAL HISTORY Never Assessed REASON FOR VISIT Requests return call PLAN OF CARE VITAL SIGNS MEDICATIONS [...]
--- OUTSIDE RECORDS SUMMARY | 2018-10-18 19:32 | XMS REPORT ---
Author Author FLORENCIA HINOJOSA Organization [facility] Address [address] [place] [address] Care Team Providers Care Clinical Mental Health Counselor Name Role Phone FLORENCIA HINOJOSA Unavailable PROBLEMS Type Condition ICD9-CM Code [id number] Code Onset Dates Condition Status SNOMED Code Problem Intractable migraine without aura and without status migrainosus G43.019 Active 322487040 Problem Memory loss R41.3 Active 72481192 Problem Cervical disc disorder with radiculopathy, cervicothoracic region M50.13 Active 448326832 Problem Benign essential tremor G25.0 Active 641897816 Problem Other chronic pain G89.29 Active 66251801 Problem Mental status change resolved Z86.59 Active 469683825 Problem Arthritis M19.90 Active 0569312 Problem Chronic fatigue R53.82 Active 51798897 ALLERGIES No Information ENCOUNTERS Encounter Location Date Diagnosis [place] [address] [address] Jul, [place] [address] 94335- 6747 19 Jul, 2018 Cervical disc disorder with radiculopathy, cervicothoracic region M50.13 and Benign essential tremor G25.0 [place] [address] [place] [id number] [place] [address] 67740- 6171 14 Jul, 2018 Intractable migraine without aura and without status migrainosus G43.019 [place] [address] [place] [id number] [place] [address] 92237- 7073 05 Jul, 2018 Memory loss R41.3 and Tremors of nervous system R25.1 [place] [address] [place] [id number] [place] [address] 87334- 7495 Jun, Intractable migraine without aura and without status migrainosus G43.019 ; Memory loss R41.3 and Tremors of nervous system R25.1 [facility] [address] [place] [id number] [place] [address] 43654- 4015 Jun, [facility] [address] [place] [id number] [place] [address] 60664- 0316 Jun, Intractable migraine without aura and without status migrainosus G43.019 [facility] [address] [place] [id number] [place] [address] 68148- 3556 May, Intractable migraine without aura and without status migrainosus G43.019 [facility] [address] [place] [id number] [place] [address] 66852- 6643 May, 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 [facility] [address] [place] [id number] [place] [address] 50699- 1396 May, 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 [facility] [address] [place] [id number] [place] [address] 59605- 6932 May, 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 [facility] [address] [place] [id number] [place] [address] 82380 -2752 May, Pain in finger of left hand M79.645 [facility] [address] [place] [id number] [place] [address] 89276- 8080 Apr, Intractable migraine without aura and without status migrainosus G43.019 [facility] [address] [place] [id number] [place] [address] 04969- 7511 Apr, Chronic fatigue R53.[address] [facility] [address] [place] [id number] [place] [address] 61050- 4348 March, [facility] [address] [place] [id number] [place] [address] 51370- 3306 March, Intractable migraine without aura and without status migrainosus G43.019 [facility] [address] [place] [id number] [place] [address] 66658- 0558 March, [facility] [address] [address] 3158 March, [place] [address] [place] [id number] [place] [address] 68281- 4137 Feb, Intractable migraine without aura and without status migrainosus G43.019 [place] [address] [place] [id number] [place] [address] 64428- 6126 Feb, Memory loss R41.3 and 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 [place] [address] [place] [id number] [place] [address] 06380- 0645 Feb, Intractable migraine without aura and without status migrainosus G43.019 [place] [address] [place] [id number] [place] [address] 62437- 4609 Jan, Intractable migraine without aura and without status migrainosus G43.019 [place] [address] [place] [id number] [place] [address] 56315- 6667 Dec, [place] [address] [place] [id number] [place] [address] 44261- 5200 Dec, Intractable migraine without aura and without status migrainosus G43.019 [place] [address] [place] [id number] [place] [address] 50991- 0211 Nov, [place] [address] [place] [id number] [place] [address] 89933- 0411 Nov, Chronic fatigue R53.82 and Family history of thyroid disease Z83.49 [place] [id number] [place] [address] 69910- 9603 Nov, Arthritis M19.90 ; Chronic fatigue R53.82 ; Family history of thyroid disease Z83.49 ; Grade IV hemorrhoids K64.3 and Other chronic pain G89.29 [place] [id number] [place] [address] 60439- 3534 Nov, Intractable migraine without aura and without status migrainosus G43.019 [place] [address] [facility] [id number] [address] Oct, [facility] [address] [id number] [address] 4276 Oct, Intractable migraine without aura and without status migrainosus G43.019 [facility] [address] [id number] [address] 2546 Oct, [facility] [address] [id number] [address] 2546 Oct, [facility] [address] [id number] [address]- 2906 Sep, Tremors of nervous system R25.1 [facility] [address] [address]- 4626 Sep, [facility] [address] [place] [id number] [place] [address] 05262- 4966 Sep, Intractable migraine without aura and without status migrainosus G43.019 [facility] [address] [id number] [address] 2546 Sep, [facility] [address] [id number] [address]- 2546 Sep, [facility] [address] [id number] [address]- 1806 Sep, Acute medial meniscus tear of right knee, initial encounter S83.241A and Acute lateral meniscus tear of left knee, initial encounter S83.282A [facility] [address] [id number] [address]- 2546 Aug, Intractable migraine without aura and without status migrainosus G43.019 [facility] [address] [id number], [place] [address] 2546 Aug, [facility] [address] [id number] [address] 2546 Aug, [facility] [address], [place] [address]- 7238 Jul, [facility] [address] [place] [id number] [place] [address] 75593- 9029 Jul, [facility] [address] [place] [id number] [place] [address] 26598- 7892 Jul, Intractable migraine without aura and without status migrainosus G43.019 ; Memory loss R41.3 ; Mental status change resolved Z86.59 ; Other chronic pain G89.29 and Pain in right knee M25.561 [facility] [address] [place] [id number] [place] [address] 59620- 8403 Jul, [facility] [address] [place] [id number] [place] [address] 39569- 7163 Jun, Tremors of nervous system R25.1 and Pelvic pain R10.2 [facility] [address] [place] [id number] [place] [address] 10025- 9482 Jun, [facility] [address] [place] [id number] [place] [address] 78276- 0742 Jun, [facility] [address] [place] [id number] [place] [address] 61205- 4646 Jun, [facility] [address] [place] [id number] [place] [address] 99733- 3582 May, [facility] [address] [place] [id number] [place] [address] 38682- 9039 May, [facility] [address] [place] [id number] [place] [address] 49839- 1719 May, Kidney pain N23 [facility] [address] [place] [id number] [place] [address] 47967- 3110 May, Pelvic pain R10.2 [facility] [id number] [place] [address] 73133 -0783 May, Wasp sting, accidental or unintentional, initial encounter T63.461A and Allergic contact dermatitis due to other agents L23.89 [facility] [address] [place] [id number] [place] [address] 83034- 0586 May, [facility] [address] [place] [id number] [place] [address] 28959- 2366 May, Pelvic pain R10.2 [facility] [address] [place] [id number] [place] [address] 57255- 4398 May, [facility] [address] [place] [id number] [place] [address] 18858- 2450 Apr, Tremors of nervous system R25.1 ; Blood in stool, gabby K92.1 ; 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 ; Memory loss R41.3 and Intractable migraine without aura and without status migrainosus G43.019 [place] [address] [place] [id number] [place] [address] 61763- 2061 Apr, Blood in stool, gabby K92.1 [place] [address] [place] [id number] [place] [address] 80621- 4340 Apr, Tremors of nervous system R25.1 ; 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 ; Memory loss R41.3 and Intractable migraine without aura and without status migrainosus G43.019 [place] [id number] [place] [address] 29057- 0902 Apr, [place] [address] [place] [id number] [place] [address] 25531- 254 Apr, Tremor R25.1 [place] [address] [place] [id number] [place] [address] 92838- 7829 March, [place] [address] [place] [id number] [place] [address] 36268- 2376 March, Cyst of right ovary N83.201 [facility] [address] [place] [id number] [place] [address] 84562- 1567 March, Blood in stool, gabby K92.1 and Other fatigue R53.83 [facility] [address] [place] [address] 37040- 4554 March, Cyst of right ovary N83.201 [facility] [address] [place] [id number] [place] [address] 18368- 1366 Feb, [facility] [address] [place] [id number] [place] [address] 39154- 9756 Feb, [facility] [address] [place] [id number] [place] [address] 28555- 3208 Feb, Cyst of right ovary N83.201 and Right lower quadrant abdominal pain R10.31 [facility] [address] [place] [id number] [place] [address] 77007- 9984 Jan, Pelvic pain R10.2 [facility] [address] [place] [id number] [place] [address] 78036- 7790 Jan, [facility] [address] [place] [id number] [place] [address] 75955- 6114 Jan, [facility] [address] [place] [id number] [place] [address] 54568- 9670 Jan, Left groin pain R10.30 [facility] [address] [place] [id number] [place] [address] 44508- 7594 Dec, [facility] [address] [place] [id number] [place] [address] 74078- 5193 Dec, Pelvic pain R10.2 and Lumbosacral neuritis M54.17 [facility] [address] [place] [id number] [place] [address] 82447- 2576 Dec, [facility] [address] [place] [id number] [place] [address] 99521- 2546 Dec, Lymph node enlargement R59.9 [facility] [address] [place] [address] 25282- 5516 Nov, Lymph node enlargement R59.9 [facility] [address] [place] [id number] [place] [address] 11046- 4376 Nov, [facility] [address] [place] [id number] [place] [address] 94842- 4288 Nov, Left groin pain R10.30 [facility] [address] [place] [id number] [place] [address] 78447- 5258 Nov, Varicose vein of leg I83.90 ; Essential hypertension I10 and Short lasting unilateral neuralgiform headache with conjunctival injection and tearing (SUNCT), not intractable G44.059 [facility] [address] [place] [id number] [place] [address] 02011 -4038 07 Jul, 2016 Post concussion syndrome F07.81 [facility] [address] [place] [id number] [place] [address] 62966- 2519 07 Jul, 2016 [facility] [address] [place] [id number] [place] [address] 53989- 9255 Oct, [facility] [address] [place] [id number] [place] [address] 32281- 3317 Oct, [facility] [address] [place] [id number] [place] [address] 97556- 8660 Aug, [facility] [address] [place] [id number] [place] [address] 91534- 6779 Aug, Ob[address] 278.00 [facility] [address] [place] [id number] [place] [address] 93111- 2519 Aug, [facility] [address] [place] [id number] [place] [address] 32383- 3292 28 Jul, 2015 Obesity 278.00 and Cervical spondylosis without myelopathy 721.0 [facility] [address] [place] [id number] [place] [address] 44076- 7491 March, [facility] [address] [place] [id number] [place] [address] 76163- 9526 Feb, Cervical spondylosis 721.0 [facility] [address] [place] [id number] [place] [address]- 5362 14 Feb, 2015 [facility] [address] [id number] [place] [address]- 3109 13 Feb, 2015 [facility] [place] [facility] [address] [id number] [place] [address]- 2117 Jan, [facility] [place] [facility] [address] [id number] [place] [address]- 0418 Jan, [facility] [place] [facility] [address] [id number] [place] [address]- 3704 Jan, [facility] [place] [facility] [address] [id number] [place] [address]- 3553 Jan, [facility] [place] [facility] [address] [id number] [place] [address]- 9395 Jan, [facility] [place] [facility] [address] [id number] [place] [address]- 6279 Jan, [facility] [place] [facility] [address] [id number] [place] [address]- 7415 Dec, [facility] [place] [facility] [address] [id number] [place] [address]- 2076 Dec, [facility] [place] [facility] [address] [id number] [place] [address]- 5519 Dec, [facility] [place] [facility] [address] [id number] [place] [address]- 8517 Dec, [facility] [place] [facility] [address] [id number] [place] [address]- 0697 Nov, [facility] [place] [facility] [address] [id number] [place] [address]- 4028 Nov, [facility] [place] [facility] [address] [id number] [place] [address]- 2546 Nov, [facility] [place] [facility] [address] [id number] [place] [address]- 6994 Nov, [facility] [place] [facility] [address] [id number] [place] [address]- 8911 Nov, [facility] [place] [facility] [address] [id number] [place] [address]- 7283 14 Nov, 2014 [facility] [place] [facility] [address] [id number] [place] [address]- 0716 Nov, [facility] [place] [facility] [address] [id number] [place] [address]- 6590 Nov, [facility] [place] [facility] [address] [id number] [place] [address]- 5282 Oct, [facility] [place] [facility] [address] [id number] [place] [address]- 6839 Oct, [facility] [place] [facility] [address] [id number] [place] [address]- 2801 Sep, [facility] [place] [facility] [address] [id number] [place] [address]- 2439 Sep, [facility] [place] [facility] [address] [id number] [place] [address]- 9515 Sep, [facility] [place] [facility] [address] [id number] [place] [address]- 9402 Sep, [facility] [place] [facility] [address] [id number] [place] [address]- 8500 29 Jul, 2014 [facility] [place] [facility] [address] [id number] [place] [address]- 6225 29 Jul, 2014 [facility] [place] [facility] [address] [id number] [place] [address]- 1979 26 Jul, 2014 [facility] [place] [facility] [address] [id number] [place] [address]- 4006 26 Jul, 2014 [facility] [place] [facility] [address] [id number] [place] [address]- 8878 19 Jul, 2014 [facility] [place] [facility] [address] [id number] [place] [address]- 1450 Jul, 2013 [facility] [place] [facility] [address] [id number] [place] [address]- 6147 Jul, [facility] [place] [facility] [address] [id number] [place] [address]- 3646 Jul, [facility] [place] [facility] [address] [id number] [place] [address]- 5381 Jul, [facility] [place] [facility] [address] [id number] [place] [address]- 0875 Jul, [facility] [place] [facility] [address] [id number] [place] [address]- 4988 Jun, [facility] [place] [facility] [address] [id number] [place] [address]- 7306 Jun, [facility] [place] [facility] [address] [id number] [place] [address]- 4184 Jun, [facility] [place] [facility] [address] [id number] [place] [address]- 9791 Jun, [facility] [place] [facility] [address] [id number] [place] [address]- 3501 Jun, [facility] [place] [facility] [address] [id number] [place] [address]- 6888 Jun, [facility] [place] [facility] [address] [id number] [place] [address]- 0459 May, [facility] [place] [facility] [address] [id number] [place] [address]- 8483 May, [facility] [place] [facility] [address] [id number] [place] [address]- 9576 May, [facility] [place] [facility] [address] [id number] [place] [address]- 3069 May, [facility] [place] [facility] [address] [id number] [place] [address]- 5803 May, [facility] [place] [facility] [address] [id number] [place] [address]- 6723 May, [facility] [place] [facility] [address] [id number] [place] [address]- 9990 Apr, [facility] [place] [facility] [address] [id number] [place] [address]- 1531 Apr, [facility] [place] [facility] [address] [id number] [place] [address]- 5398 Apr, [facility] [place] [facility] [address] [id number] [place] [address]- 6354 Apr, [facility] [place] [facility] [address] [id number] [place] [address]- 8491 Apr, [facility] [place] [facility] [address] [id number] [place] [address]- 40[address] Apr, [facility] [place] [facility] [address] [id number] [place] [address] Apr, [facility] [place] [facility] [address] [id number] [place] [address] Apr, [facility] [place] [facility] [address] [id number] [place] [address] Apr, [facility] [place] [facility] [address] [id number] [place] [address] Apr, [facility] [place] [facility] [address] [id number] [place] [address] Apr, [facility] [place] [facility] [address] [id number] [place] [address] Apr, [facility] [place] [facility] [address] [id number] [place] [address] Apr, [facility] [place] [facility] [address] [id number] [place] [address] March, [facility] [place] [facility] [address] [id number] [place] [address] March, [facility] [place] [facility] [address] [id number] [place] [address] March, [facility] [place] [facility] [address] [id number] [place] [address] March, [facility] [place] [facility] [address] [id number] [place] [address] March, [facility] [place] [facility] [address] [id number] [place] [address] March, [facility] [place] [facility] [address] [id number] [place] [address] Feb, [facility] [place] [facility] [address] [id number] [place] [address] Feb, [facility] [place] [facility] [address] [id number] [place] [address] Feb, [facility] [place] [facility] [address] [id number] [place] [address] Feb, [facility] [place] [facility] [address] [id number] [place] [address] Feb, [facility] [place] [facility] [address] [id number] [place] [address] Feb, [facility] [place] [facility] [address] [id number] [place] [address] Feb, [facility] [place] [facility] [address] [id number] [place] [address] 15 Feb, 2014 [facility] [place] [facility] [address] [id number] [place] [address] Feb, [facility] [place] [facility] [address] [id number] [place] [address]- [address] Feb, [facility] [place] [facility] [address] [id number] [place] [address] 24 Jan, 2014 [facility] [place] [facility] [address] [id number] [place] [address] Jan, [facility] [address] [id number] [place] [address] Jan, [facility] [place] [facility] [address] [id number] [place] [address] Jan, [facility] [place] [facility] [address] [id number] [place] [address] Dec, [facility] [place] [facility] [address] [id number] [place] [address] Dec, [facility] [place] [facility] [address] [id number] [place] [address] Sep, [facility] [place] [facility] [address] [id number] [place] [address] Sep, [facility] [place] [facility] [address] [id number] [place] [address] Aug, [facility] [address] [id number] [place] [address] Aug, [facility] [place] [facility] [address] [id number] [place] [address] Aug, [facility] [address] [id number] [place] [address] Aug, [facility] [place] [facility] [address] [id number] [place] [address] Aug, [facility] [place] [facility] [address] [id number] [place] [address] May, [facility] [place] [facility] [address] [id number] [place] [address] Jan, [facility] [place] [facility] [address] [id number] [place] [address] Jan, [facility] [place] [facility] [address] [id number] [place] [address] Dec, IMMUNIZATIONS No Known Immunizations SOCIAL HISTORY Never Assessed REASON FOR VISIT DI order PLAN OF CARE VITAL SIGNS MEDICATIONS Unknown [...]
--- OUTSIDE RECORDS SUMMARY | 2018-10-18 19:32 | XMS REPORT ---
Author Author FLORENCIA HINOJOSA Organization [facility] Address [address] [place] [address] Care Team Providers Care Automobile Service Advisor Name Role Phone FLORENCIA HINOJOSA Unavailable PROBLEMS Type Condition ICD9-CM Code EYE34-LW Code Onset Dates Condition Status SNOMED Code Problem Intractable migraine without aura and without status migrainosus G43.019 Active 339865871 Problem Memory loss R41.3 Active 67732449 Problem Cervical disc disorder with radiculopathy, cervicothoracic region M50.13 Active 525944909 Problem Benign essential tremor G25.0 Active 055556336 Problem Other chronic pain G89.29 Active 38107838 Problem Mental status change resolved Z86.59 Active 563448473 Problem Arthritis M19.90 Active 8017635 Problem Chronic fatigue R53.82 Active 29937441 ALLERGIES No Information ENCOUNTERS Encounter Location Date Diagnosis [place] [address] [address]- [address] 25 Jul, 2018 [place] [address] 19109- 3054 19 Jul, 2018 Cervical disc disorder with radiculopathy, cervicothoracic region M50.13 and Benign essential tremor G25.0 [place] [address] [place] [id number] [place] [address] 20318- 4272 14 Jul, 2018 Intractable migraine without aura and without status migrainosus G43.019 [place] [address] [place] [id number] [place] [address] 10725- 8612 05 Jul, 2018 Memory loss R41.3 and Tremors of nervous system R25.1 [place] [address] [place] [id number] [place] [address] 93830- 1682 Jun, Intractable migraine without aura and without status migrainosus G43.019 ; Memory loss R41.3 and Tremors of nervous system R25.1 [facility] [address] [place] [id number] [place] [address] 05870- 9537 Jun, [facility] [address] [id number] [place] [address] 00862- 0846 Jun, Intractable migraine without aura and without status migrainosus G43.019 [facility] [id number] [place] [address] 09839- 3656 May, Intractable migraine without aura and without status migrainosus G43.019 [facility] [address] [id number] [place] [address] 08294- 2949 May, 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 [facility] [id number] [place] [address] 75204- 1096 May, 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 [facility] [address] [id number] [place] [address] 43030- 2221 May, 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 [facility] [id number] [place] [address] 32127 -8234 May, Pain in finger of left hand M79.645 [facility] [id number] [place] [address] 80562- 0851 Apr, Intractable migraine without aura and without status migrainosus G43.019 [facility] [id number] [place] [address] 78666- 9117 Apr, Chronic fatigue R53.82 and Dizziness R42 [facility] [address] [id number] [place] [address] 27326- 9756 March, [facility] [id number] [place] [address] 39200- 0786 March, Intractable migraine without aura and without status migrainosus G43.019 [facility] [id number] [place] [address] 01838- 1135 March, [facility] [id number] [address]- 8734 March, [place] [address] [place] [id number] [place] [address] 70628- 8392 Feb, Intractable migraine without aura and without status migrainosus G43.019 [place] [address] [place] [id number] [place] [address] 00457- 8336 Feb, Memory loss R41.3 and 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 [place] [address] [place] [id number] [place] [address] 79834- 6350 Feb, Intractable migraine without aura and without status migrainosus G43.019 [place] [address] [place] [id number] [place] [address] 14958- 8991 Jan, Intractable migraine without aura and without status migrainosus G43.019 [place] [address] [id number] [place] [address] 24113- 2982 Dec, [place] [address] [place] [id number] [place] [address] 03911- 0564 Dec, Intractable migraine without aura and without status migrainosus G43.019 [place] [address] [id number] [place] [address] 45855- 5764 Nov, [place] [address] [id number] [place] [address] 07799- 8327 Nov, Chronic fatigue R53.82 and Family history of thyroid disease Z83.49 [place] [id number] [place] [address] 39076- 4184 Nov, Arthritis M19.90 ; Chronic fatigue R53.82 ; Family history of thyroid disease Z83.49 ; Grade IV hemorrhoids K64.3 and Other chronic pain G89.29 [place] [id number] [place] [address] 95437- 8685 Nov, Intractable migraine without aura and without status migrainosus G43.019 [place] [address] [facility] [id number] [place] [address]- 5196 Oct, [facility] [address] [id number] [place] [address]- 6236 Oct, Intractable migraine without aura and without status migrainosus G43.019 [facility] [address] [place] [id number] [place] [address] 2546 Oct, [facility] [address] [place] [id number] [place] [address] 2546 Oct, [facility] [address] [place] [id number] [place] [address]- 8486 Sep, Tremors of nervous system R25.1 [facility] [id number] [place] [address]- 6526 Sep, [facility] [address] [place] [id number] [place] [address] 47920- 5116 Sep, Intractable migraine without aura and without status migrainosus G43.019 [facility] [address] [place] [id number] [place] [address] 2546 Sep, [facility] [address] [place] [address] [id number] [place] [address]- 2546 Sep, [facility] [address] [place] [address] [id number] [place] [address]- 8606 Sep, Acute medial meniscus tear of right knee, initial encounter S83.241A and Acute lateral meniscus tear of left knee, initial encounter S83.282A [facility] [address] [place] [address] [id number] [place] [address]- 2546 Aug, Intractable migraine without aura and without status migrainosus G43.019 [facility] [address] [place] [id number] [place] [address] 2546 Aug, [facility] [address] [place] [id number] [place] [address]- 2546 Aug, [facility] [id number] [place] [address]- 4822 Jul, [facility] [address] [place] [id number] [place] [address] 22856- 9400 Jul, [facility] [address] [place] [id number] [place] [address] 44349- 9766 Jul, Intractable migraine without aura and without status migrainosus G43.019 ; Memory loss R41.3 ; Mental status change resolved Z86.59 ; Other chronic pain G89.29 and Pain in right knee M25.561 [facility] [address] [place] [id number] [place] [address] 67899- 6601 Jul, [facility] [address] [place] [id number] [place] [address] 14268- 1008 Jun, Tremors of nervous system R25.1 and Pelvic pain R10.2 [facility] [address] [place] [id number] [place] [address] 64958- 1623 Jun, [facility] [address] [place] [id number] [place] [address] 35439- 9831 Jun, [facility] [address] [place] [id number] [place] [address] 52135- 4659 Jun, [facility] [address] [place] [id number] [place] [address] 90336- 2498 May, [facility] [address] [place] [id number] [place] [address] 66618- 5826 May, [facility] [address] [place] [id number] [place] [address] 27441- 4965 May, Kidney pain N23 [facility] [address] [place] [id number] [place] [address] 50320- 6575 May, Pelvic pain R10.2 [facility] [id number] [place] [address] 42747 -2433 May, Wasp sting, accidental or unintentional, initial encounter T63.461A and Allergic contact dermatitis due to other agents L23.89 [facility] [address] [place] [id number] [place] [address] 56021- 0176 May, [facility] [address] [place] [id number] [place] [address] 09349- 5996 May, Pelvic pain R10.2 [facility] [address] [place] [id number] [place] [address] 74117- 5302 May, [facility] [address] [place] [id number] [place] [address] 97168- 9213 Apr, Tremors of nervous system R25.1 ; Blood in stool, gabby K92.1 ; 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 ; Memory loss R41.3 and Intractable migraine without aura and without status migrainosus G43.019 [place] [address] [place] [id number] [place] [address] 13827- 7741 Apr, Blood in stool, gabby K92.1 [place] [address] [place] [id number] [place] [address] 72435- 7265 Apr, Tremors of nervous system R25.1 ; 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 ; Memory loss R41.3 and Intractable migraine without aura and without status migrainosus G43.019 [place] [id number] [place] [address] 75019- 9565 Apr, [place] [address] [place] [id number] [place] [address] 22480- 2548 Apr, Tremor R25.1 [place] [address] [place] [id number] [place] [address] 57934- 6451 March, [place] [address] [place] [id number] [place] [address] 03457- 4836 March, Cyst of right ovary N83.201 [facility] [address] [place] [id number] [place] [address] 33941- 1336 March, Blood in stool, gabby K92.1 and Other fatigue R53.83 [facility] [id number] [place] [address] 64183- 6806 March, Cyst of right ovary N83.201 [facility] [address] [place] [id number] [place] [address] 10336- 4546 Feb, [facility] [address] [place] [id number] [place] [address] 49289- 1106 Feb, [facility] [address] [place] [id number] [place] [address] 06565- 5072 Feb, Cyst of right ovary N83.201 and Right lower quadrant abdominal pain R10.31 [facility] [address] [place] [id number] [place] [address] 66777- 9487 Jan, Pelvic pain R10.2 [facility] [address] [place] [id number] [place] [address] 13975- 4657 Jan, [facility] [address] [place] [id number] [place] [address] 50762- 1396 Jan, [facility] [address] [place] [id number] [place] [address] 73240- 9787 Jan, Left groin pain R10.30 [facility] [address] [place] [id number] [place] [address] 79218- 8000 Dec, [facility] [address] [place] [id number] [place] [address] 81710- 5629 Dec, Pelvic pain R10.2 and Lumbosacral neuritis M54.17 [facility] [address] [place] [id number] [place] [address] 11593- 8866 Dec, [facility] [address] [place] [id number] [place] [address] 39378- 0026 Dec, Lymph node enlargement R59.9 [facility] [id number] [place] [address] 70653- 6537 Nov, Lymph node enlargement R59.9 [facility] [address] [place] [id number] [place] [address] 77441- 3091 Nov, [facility] [address] [place] [id number] [place] [address] 59727- 0604 Nov, Left groin pain R10.30 [facility] [id number] [place] [address] 73974- 4216 Nov, Varicose vein of leg I83.90 ; Essential hypertension I10 and Short lasting unilateral neuralgiform headache with conjunctival injection and tearing (SUNCT), not intractable G44.059 [facility] [address] [id number] [place] [address] 46395 -8352 07 Jul, 2016 Post concussion syndrome F07.81 [facility] [address] [place] [id number] [place] [address] 48114- 8903 07 Jul, 2016 [facility] [address] [place] [id number] [place] [address] 36964- 8156 Oct, [facility] [id number] [place] [address] 99315- 7719 Oct, [facility] [address] [place] [id number] [place] [address] 92916- 2264 Aug, [facility] [id number] [place] [address] 51009- 2219 Aug, Obesity 278.00 [facility] [address] [place] [id number] [place] [address] 13279- 0741 Aug, [facility] [id number] [place] [address] 34098- 3366 28 Jul, 2015 Obesity 278.00 and Cervical spondylosis without myelopathy 721.0 [facility] [address] [place] [id number] [place] [address] 42245- 9993 March, [facility] [address] [place] [id number] [place] [address] 24714- 9423 Feb, Cervical spondylosis 721.0 [facility] [address] [place] [id number] [place] [address]- 5801 14 Feb, 2015 [facility] [address] [id number] [place] [address]- 6564 13 Feb, 2015 [facility] [place] [facility] [address] [id number] [place] [address]- 1325 Jan, [facility] [place] [facility] [address] [id number] [place] [address]- 9064 Jan, [facility] [place] [facility] [address] [id number] [place] [address]- 2333 Jan, [facility] [place] [facility] [address] [id number] [place] [address]- 7772 Jan, [facility] [place] [facility] [address] [id number] [place] [address]- 8308 Jan, [facility] [place] [facility] [address] [id number] [place] [address]- 0254 Jan, [facility] [place] [facility] [address] [id number] [place] [address]- 4015 Dec, [facility] [place] [facility] [address] [id number] [place] [address]- 9230 Dec, [facility] [place] [facility] [address] [id number] [place] [address]- 8845 Dec, [facility] [place] [facility] [address] [id number] [place] [address]- 9731 Dec, [facility] [place] [facility] [address] [id number] [place] [address]- 6059 Nov, [facility] [place] [facility] [address] [id number] [place] [address]- 4651 Nov, [facility] [place] [facility] [address] [id number] [place] [address]- 2546 Nov, [facility] [place] [facility] [address] [id number] [place] [address]- 9297 Nov, [facility] [place] [facility] [address] [id number] [place] [address]- 6373 Nov, [facility] [place] [facility] [address] [id number] [place] [address]- 6326 14 Nov, 2014 [facility] [place] [facility] [address] [id number] [place] [address]- 6731 Nov, [facility] [place] [facility] [address] [id number] [place] [address]- 3193 Nov, [facility] [place] [facility] [address] [id number] [place] [address]- 5157 Oct, [facility] [place] [facility] [address] [id number] [place] [address]- 2496 Oct, [facility] [place] [facility] [address] [id number] [place] [address]- 0937 Sep, [facility] [place] [facility] [address] [id number] [place] [address]- 9318 Sep, [facility] [place] [facility] [address] [id number] [place] [address]- 3484 Sep, [facility] [place] [facility] [address] [id number] [place] [address]- 3623 Sep, [facility] [place] [facility] [address] [id number] [place] [address]- 3340 29 Jul, 2014 [facility] [place] [facility] [address] [id number] [place] [address]- 4029 29 Jul, 2014 [facility] [place] [facility] [address] [id number] [place] [address]- 9736 26 Jul, 2014 [facility] [place] [facility] [address] [id number] [place] [address]- 1509 26 Jul, 2014 [facility] [place] [facility] [address] [id number] [place] [address]- 4207 19 Jul, 2014 [facility] [place] [facility] [address] [id number] [place] [address]- 8773 Jul, 2013 [facility] [place] [facility] [address] [id number] [place] [address]- 7382 Jul, [facility] [place] [facility] [address] [id number] [place] [address]- 7427 Jul, [facility] [place] [facility] [address] [id number] [place] [address]- 6637 Jul, [facility] [place] [facility] [address] [id number] [place] [address]- 8153 Jul, [facility] [place] [facility] [address] [id number] [place] [address]- 8999 Jun, [facility] [place] [facility] [address] [id number] [place] [address]- 3599 Jun, [facility] [place] [facility] [address] [id number] [place] [address]- 9407 Jun, [facility] [place] [facility] [address] [id number] [place] [address]- 6135 Jun, [facility] [place] [facility] [address] [id number] [place] [address]- 3582 Jun, [facility] [place] [facility] [address] [id number] [place] [address]- 7494 Jun, [facility] [place] [facility] [address] [id number] [place] [address]- 2746 May, [facility] [place] [facility] [address] [id number] [place] [address]- 8114 May, [facility] [place] [facility] [address] [id number] [place] [address]- 6933 May, [facility] [place] [facility] [address] [id number] [place] [address]- 0966 May, [facility] [place] [facility] [address] [id number] [place] [address]- 6580 May, [facility] [place] [facility] [address] [id number] [place] [address]- 1493 May, [facility] [place] [facility] [address] [id number] [place] [address]- 7028 Apr, [facility] [place] [facility] [address] [id number] [place] [address]- 9287 Apr, [facility] [place] [facility] [address] [id number] [place] [address]- 5962 Apr, [facility] [place] [facility] [address] [id number] [place] [address]- 5866 Apr, [facility] [place] [facility] [address] [id number] [place] [address]- 4713 Apr, [facility] [place] [facility] [address] [id number] [place] [address]- 4761 Apr, [facility] [place] [facility] [address] [id number] [place] [address]- 1849 Apr, [facility] [place] [facility] [address] [id number] [place] [address]- 0570 Apr, [facility] [place] [facility] [address] [id number] [place] [address]- 1590 Apr, [facility] [place] [facility] [address] [id number] [place] [address]- 0502 Apr, [facility] [place] [facility] [address] [id number] [place] [address]- 0395 Apr, [facility] [place] [facility] [address] [id number] [place] [address]- 5780 Apr, [facility] [place] [facility] [address] [id number] [place] [address]- 0873 Apr, [facility] [place] [facility] [address] [id number] [place] [address]- 2005 March, [facility] [place] [facility] [address] [id number] [place] [address]- 2813 March, [facility] [place] [facility] [address] [id number] [place] [address] March, [facility] [place] [facility] [address] [id number] [place] [address] March, [facility] [place] [facility] [address] [id number] [place] [address] March, [facility] [place] [facility] [address] [id number] [place] [address] March, [facility] [place] [facility] [address] [id number] [place] [address] Feb, [facility] [place] [facility] [address] [id number] [place] [address] Feb, [facility] [place] [facility] [address] [id number] [place] [address] Feb, [facility] [place] [facility] [address] [id number] [place] [address] Feb, [facility] [place] [facility] [address] [id number] [place] [address] Feb, [facility] [place] [facility] [address] [id number] [place] [address] Feb, [facility] [place] [facility] [address] [id number] [place] [address] Feb, [facility] [place] [facility] [address] [id number] [place] [address] 15 Feb, 2014 [facility] [place] [facility] [address] [id number] [place] [address] Feb, [facility] [place] [facility] [address] [id number] [place] [address] Feb, [facility] [place] [facility] [address] [id number] [place] [address] 24 Jan, 2014 [facility] [place] [facility] [address] [id number] [place] [address] Jan, [facility] [address] [id number] [place] [address] Jan, [facility] [place] [facility] [address] [id number] [place] [address] Jan, [facility] [place] [facility] [address] [id number] [place] [address] Dec, [facility] [place] [facility] [address] [id number] [place] [address] Dec, [facility] [place] [facility] [address] [id number] [place] [address] Sep, [facility] [place] [facility] [address] [id number] [place] [address] Sep, [facility] [place] [facility] [address] [id number] [place] [address] Aug, [facility] [address] [id number] [place] [address] Aug, [facility] [place] [facility] [address] [id number] [place] [address] Aug, [facility] [address] [id number] [place] [address] Aug, [facility] [place] [facility] [address] [id number] [place] [address] Aug, [facility] [place] [facility] [address] [id number] [place] [address] May, [facility] [place] [facility] [address] [id number] [place] [address] Jan, [facility] [place] [facility] [address] [id number] [place] [address] Jan, [facility] [place] [facility] [address] [id number] [place] [address] 2007 Dec, IMMUNIZATIONS No Known Immunizations SOCIAL HISTORY Never Assessed REASON FOR VISIT Controlled Med Refill PLAN OF CARE VITAL SIGNS MEDICATIONS Medication Instructions Dosage Frequency Start Date End Date Duration Status Oxycodone HCl 10 mg Orally 4 times a day 1 tablet as needed 6h Jul, 28 days Active Ambien 10 mg Orally [...]
--- OUTSIDE RECORDS SUMMARY | 2018-10-18 19:33 | XMS REPORT ---
Author Author FLORENCIA HINOJOSA Organization [facility] Address [address] [place] [address] Care Team Providers Care Telesales Team Leader Name Role Phone FLORENCIA HINOJOSA Unavailable PROBLEMS Type Condition ICD9-CM Code OPD21-XT Code Onset Dates Condition Status SNOMED Code Problem Intractable migraine without aura and without status migrainosus G43.019 Active 566295444 Problem Memory loss R41.3 Active 12439609 Problem Cervical disc disorder with radiculopathy, cervicothoracic region M50.13 Active 314445090 Problem Benign essential tremor G25.0 Active 238529223 Problem Other chronic pain G89.29 Active 56118099 Problem Mental status change resolved Z86.59 Active 062057771 Problem Arthritis M19.90 Active 5738018 Problem Chronic fatigue R53.82 Active 54720441 ALLERGIES No Information ENCOUNTERS Encounter Location Date Diagnosis [place] [address] [address] Jul, [place] [address] 49141- 9111 19 Jul, 2018 Cervical disc disorder with radiculopathy, cervicothoracic region M50.13 and Benign essential tremor G25.0 [place] [address] [address] [place] [id number] [place] [address] 57513- 9024 14 Jul, 2018 Intractable migraine without aura and without status migrainosus G43.019 [place] [address] [place] [id number] [place] [address] 07650- 8557 05 Jul, 2018 Memory loss R41.3 and Tremors of nervous system R25.1 [place] [address] [place] [id number] [place] [address] 12603- 0764 Jun, Intractable migraine without aura and without status migrainosus G43.019 ; Memory loss R41.3 and Tremors of nervous system R25.1 [facility] [address] [place] [id number] [place] [address] 25369- 7064 Jun, [facility] [address] [place] [id number] [place] [address] 89088- 2196 Jun, Intractable migraine without aura and without status migrainosus G43.019 [facility] [address] [place] [id number] [place] [address] 78541- 1593 May, Intractable migraine without aura and without status migrainosus G43.019 [facility] [address] [place] [id number] [place] [address] 69296- 2140 May, 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 [facility] [address] [place] [id number] [place] [address] 14657- 8526 May, 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 [facility] [address] [place] [id number] [place] [address] 64798- 0561 May, 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 [facility] [address] [place] [id number] [place] [address] 79120 -4557 May, Pain in finger of left hand M79.645 [facility] [address] [place] [id number] [place] [address] 46088- 1165 Apr, Intractable migraine without aura and without status migrainosus G43.019 [facility] [address] [place] [id number] [place] [address] 48963- 9531 Apr, Chronic fatigue R53.82 and Dizziness R42 [facility] [address] [place] [id number] [place] [address] 20883- 9847 March, [facility] [address] [place] [id number] [place] [address] 09393- 4306 March, Intractable migraine without aura and without status migrainosus G43.019 [facility] [address] [place] [id number] [place] [address] 42876- 9849 March, [facility] [address] [address]- 0788 March, [place] [address] [place] [id number] [place] [address] 45456- 3082 Feb, Intractable migraine without aura and without status migrainosus G43.019 [place] [address] [place] [id number] [place] [address] 03716- 7856 Feb, Memory loss R41.3 and 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 [place] [address] [place] [id number] [place] [address] 08189- 7392 Feb, Intractable migraine without aura and without status migrainosus G43.019 [place] [address] [place] [id number] [place] [address] 99373- 9444 Jan, Intractable migraine without aura and without status migrainosus G43.019 [place] [address] [place] [id number] [place] [address] 42329- 7480 Dec, [place] [address] [place] [id number] [place] [address] 41519- 2756 Dec, Intractable migraine without aura and without status migrainosus G43.019 [place] [address] [place] [id number] [place] [address] 91286- 4035 Nov, [place] [address] [place] [id number] [place] [address] 58934- 8545 Nov, Chronic fatigue R53.82 and Family history of thyroid disease Z83.49 [place] [id number] [place] [address] 54750- 5585 Nov, Arthritis M19.90 ; Chronic fatigue R53.82 ; Family history of thyroid disease Z83.49 ; Grade IV hemorrhoids K64.3 and Other chronic pain G89.29 [place] [id number] [place] [address] 68886- 9861 Nov, Intractable migraine without aura and without status migrainosus G43.019 [place] [address] [address] [facility] [id number] [address] 9876 Oct, [facility] [address] [place] [id number] [address]- 6076 Oct, Intractable migraine without aura and without status migrainosus G43.019 [facility] [address] [place] [id number] [address] 2546 Oct, [facility] [address] [place] [id number] [address] 2546 Oct, [facility] [address] [place] [id number] [address]- 6656 Sep, Tremors of nervous system R25.1 [facility] [address], [place] [address]- 1046 Sep, [facility] [address] [place] [id number] [place] [address] 86429- 0846 Sep, Intractable migraine without aura and without status migrainosus G43.019 [facility] [address] [place] [id number] [address] 2546 Sep, [facility] [address] [place] [id number] [address]- 2546 Sep, [facility] [address] [place] [id number] [address]- 9236 Sep, Acute medial meniscus tear of right knee, initial encounter S83.241A and Acute lateral meniscus tear of left knee, initial encounter S83.282A [facility] [address] [place] [id number] [address]- 2546 Aug, Intractable migraine without aura and without status migrainosus G43.019 [facility] [address] [place] [id number] [address] 2546 Aug, [facility] [address] [place] [id number] [address]- 2546 Aug, [facility] [address], [place] [address]- 8994 Jul, [facility] [address] [place] [id number] [place] [address] 75116- 4872 Jul, [facility] [address] [place] [id number] [place] [address] 91699- 4316 Jul, Intractable migraine without aura and without status migrainosus G43.019 ; Memory loss R41.3 ; Mental status change resolved Z86.59 ; Other chronic pain G89.29 and Pain in right knee M25.561 [facility] [address] [place] [id number] [place] [address] 27783- 9673 Jul, [facility] [address] [place] [id number] [place] [address] 00949- 7194 Jun, Tremors of nervous system R25.1 and Pelvic pain R10.2 [facility] [address] [place] [id number] [place] [address] 52666- 6266 Jun, [facility] [address] [place] [id number] [place] [address] 13339- 7356 Jun, [facility] [address] [place] [id number] [place] [address] 03875- 2424 Jun, [facility] [address] [place] [id number] [place] [address] 61334- 7494 May, [facility] [address] [place] [id number] [place] [address] 49986- 0512 May, [facility] [address] [place] [id number] [place] [address] 78123- 1077 May, Kidney pain N23 [facility] [address] [place] [id number] [place] [address] 75381- 8420 May, Pelvic pain R10.2 [facility] [id number] [place] [address] 63083 -8332 May, Wasp sting, accidental or unintentional, initial encounter T63.461A and Allergic contact dermatitis due to other agents L23.89 [facility] [address] [place] [id number] [place] [address] 15890- 2656 May, [facility] [address] [place] [id number] [place] [address] 39767- 8206 May, Pelvic pain R10.2 [facility] [address] [place] [id number] [place] [address] 38654- 6197 May, [facility] [address] [place] [id number] [place] [address] 02593- 5447 Apr, Tremors of nervous system R25.1 ; Blood in stool, gabby K92.1 ; 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 ; Memory loss R41.3 and Intractable migraine without aura and without status migrainosus G43.019 [place] [address] [place] [id number] [place] [address] 08239- 4789 Apr, Blood in stool, gabby K92.1 [place] [address] [place] [id number] [place] [address] 30272- 7274 Apr, Tremors of nervous system R25.1 ; 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 ; Memory loss R41.3 and Intractable migraine without aura and without status migrainosus G43.019 [place] [id number] [place] [address] 43822- 9764 Apr, [place] [address] [place] [id number] [place] [address] 81539- 2543 Apr, Tremor R25.1 [place] [address] [place] [id number] [place] [address] 75476- 1776 March, [place] [address] [place] [id number] [place] [address] 36160- 7176 March, Cyst of right ovary N83.201 [facility] [address] [place] [id number] [place] [address] 28485- 3441 March, Blood in stool, gabby K92.1 and Other fatigue R53.83 [facility] [address] [place] [address] 47508- 3065 March, Cyst of right ovary N83.201 [facility] [address] [place] [id number] [place] [address] 28846- 6486 Feb, [facility] [address] [place] [id number] [place] [address] 57725- 4706 Feb, [facility] [address] [place] [id number] [place] [address] 99306- 0767 Feb, Cyst of right ovary N83.201 and Right lower quadrant abdominal pain R10.31 [facility] [address] [place] [id number] [place] [address] 48960- 3161 Jan, Pelvic pain R10.2 [facility] [address] [place] [id number] [place] [address] 48785- 7561 Jan, [facility] [address] [place] [id number] [place] [address] 28263- 7451 Jan, [facility] [address] [place] [id number] [place] [address] 50456- 9174 Jan, Left groin pain R10.30 [facility] [address] [place] [id number] [place] [address] 36414- 0088 Dec, [facility] [address] [place] [id number] [place] [address] 22094- 1437 Dec, Pelvic pain R10.2 and Lumbosacral neuritis M54.17 [facility] [address] [place] [id number] [place] [address] 20468- 5446 Dec, [facility] [address] [place] [id number] [place] [address] 98164- 3806 Dec, Lymph node enlargement R59.9 [facility] [address] [place] [address] 62880- 6249 Nov, Lymph node enlargement R59.9 [facility] [address] [place] [id number] [place] [address] 82336- 8496 Nov, [facility] [address] [place] [id number] [place] [address] 37555- 4060 Nov, Left groin pain R10.30 [facility] [address] [place] [id number] [place] [address] 78204- 3220 Nov, Varicose vein of leg I83.90 ; Essential hypertension I10 and Short lasting unilateral neuralgiform headache with conjunctival injection and tearing (SUNCT), not intractable G44.059 [facility] [address] [place] [id number] [place] [address] 98978 -2118 07 Jul, 2016 Post concussion syndrome F07.81 [facility] [address] [place] [id number] [place] [address] 05482- 2370 07 Jul, 2016 [facility] [address] [place] [id number] [place] [address] 82558- 2100 Oct, [facility] [address] [place] [id number] [place] [address] 00108- 4724 Oct, [facility] [address] [place] [id number] [place] [address] 63254- 8407 Aug, [facility] [address] [place] [id number] [place] [address] 75526- 9658 Aug, Obesity 278.00 [facility] [address] [place] [id number] [place] [address] 75008- 8765 Aug, [facility] [address] [place] [id number] [place] [address] 78896- 4782 28 Jul, 2015 Obesity 278.00 and Cervical spondylosis without myelopathy 721.0 [facility] [address] [place] [id number] [place] [address] 38476- 1112 March, [facility] [address] [place] [id number] [place] [address] 24666- 1904 Feb, Cervical spondylosis 721.0 [facility] [address] [place] [id number] [address]- 1596 14 Feb, 2015 [facility] [address] [id number] [place] [address]- 1101 13 Feb, 2015 [facility] [place] [facility] [address] [id number] [place] [address]- 3285 Jan, [facility] [place] [facility] [address] [id number] [place] [address]- 1685 Jan, [facility] [place] [facility] [address] [id number] [place] [address]- 3742 Jan, [facility] [place] [facility] [address] [id number] [place] [address]- 5508 Jan, [facility] [place] [facility] [address] [id number] [place] [address]- 1888 Jan, [facility] [place] [facility] [address] [id number] [place] [address]- 2819 Jan, [facility] [place] [facility] [address] [id number] [place] [address]- 8147 Dec, [facility] [place] [facility] [address] [id number] [place] [address]- 2553 Dec, [facility] [place] [facility] [address] [id number] [place] [address]- 3297 Dec, [facility] [place] [facility] [address] [id number] [place] [address]- 6842 Dec, [facility] [place] [facility] [address] [id number] [place] [address]- 8786 Nov, [facility] [place] [facility] [address] [id number] [place] [address]- 7154 Nov, [facility] [place] [facility] [address] [id number] [place] [address]- 2546 Nov, [facility] [place] [facility] [address] [id number] [place] [address]- 7602 Nov, [facility] [place] [facility] [address] [id number] [place] [address]- 8453 Nov, [facility] [place] [facility] [address] [id number] [place] [address]- 2978 14 Nov, 2014 [facility] [place] [facility] [address] [id number] [place] [address]- 2317 Nov, [facility] [place] [facility] [address] [id number] [place] [address]- 6075 Nov, [facility] [place] [facility] [address] [id number] [place] [address]- 3401 Oct, [facility] [place] [facility] [address] [id number] [place] [address]- 1712 Oct, [facility] [place] [facility] [address] [id number] [place] [address]- 1944 Sep, [facility] [place] [facility] [address] [id number] [place] [address]- 4025 Sep, [facility] [place] [facility] [address] [id number] [place] [address]- 9673 Sep, [facility] [place] [facility] [address] [id number] [place] [address]- 4863 Sep, [facility] [place] [facility] [address] [id number] [place] [address]- 1147 29 Jul, 2014 [facility] [place] [facility] [address] [id number] [place] [address]- 7194 29 Jul, 2014 [facility] [place] [facility] [address] [id number] [place] [address]- 1719 26 Jul, 2014 [facility] [place] [facility] [address] [id number] [place] [address]- 7902 26 Jul, 2014 [facility] [place] [facility] [address] [id number] [place] [address]- 2927 19 Jul, 2014 [facility] [place] [facility] [address] [id number] [place] [address]- 4248 Jul, 2013 [facility] [place] [facility] [address] [id number] [place] [address]- 9288 Jul, [facility] [place] [facility] [address] [id number] [place] [address]- 7714 Jul, [facility] [place] [facility] [address] [id number] [place] [address]- 6118 Jul, [facility] [place] [facility] [address] [id number] [place] [address]- 3001 Jul, [facility] [place] [facility] [address] [id number] [place] [address]- 9006 Jun, [facility] [place] [facility] [address] [id number] [place] [address]- 3218 Jun, [facility] [place] [facility] [address] [id number] [place] [address]- 9113 Jun, [facility] [place] [facility] [address] [id number] [place] [address]- 6118 Jun, [facility] [place] [facility] [address] [id number] [place] [address]- 6473 Jun, [facility] [place] [facility] [address] [id number] [place] [address]- 5197 Jun, [facility] [place] [facility] [address] [id number] [place] [address]- 0656 May, [facility] [place] [facility] [address] [id number] [place] [address]- 4930 May, [facility] [place] [facility] [address] [id number] [place] [address]- 0542 May, [facility] [place] [facility] [address] [id number] [place] [address]- 8571 May, [facility] [place] [facility] [address] [id number] [place] [address]- 2281 May, [facility] [place] [facility] [address] [id number] [place] [address]- 3545 May, [facility] [place] [facility] [address] [id number] [place] [address]- 0256 Apr, [facility] [place] [facility] [address] [id number] [place] [address]- 5002 Apr, [facility] [place] [facility] [address] [id number] [place] [address]- 5541 Apr, [facility] [place] [facility] [address] [id number] [place] [address]- 6031 Apr, [facility] [place] [facility] [address] [id number] [place] [address]- 2302 Apr, [facility] [place] [facility] [address] [id number] [place] [address]- 5342 Apr, [facility] [place] [facility] [address] [id number] [place] [address]- 9963 Apr, [facility] [place] [facility] [address] [id number] [place] [address]- 1562 Apr, [facility] [place] [facility] [address] [id number] [place] [address]- 7441 Apr, [facility] [place] [facility] [address] [id number] [place] [address]- 5055 Apr, [facility] [place] [facility] [address] [id number] [place] [address]- [address] Apr, [facility] [place] [facility] [address] [id number] [place] [address] Apr, [facility] [place] [facility] [address] [id number] [place] [address] Apr, [facility] [place] [facility] [address] [id number] [place] [address] March, [facility] [place] [facility] [address] [id number] [place] [address] March, [facility] [place] [facility] [address] [id number] [place] [address] March, [facility] [place] [facility] [address] [id number] [place] [address] March, [facility] [place] [facility] [address] [id number] [place] [address] March, [facility] [place] [facility] [address] [id number] [place] [address] March, [facility] [place] [facility] [address] [id number] [place] [address] Feb, [facility] [place] [facility] [address] [id number] [place] [address] Feb, [facility] [place] [facility] [address] [id number] [place] [address] Feb, [facility] [place] [facility] [address] [id number] [place] [address] Feb, [facility] [place] [facility] [address] [id number] [place] [address] Feb, [facility] [place] [facility] [address] [id number] [place] [address] Feb, [facility] [place] [facility] [address] [id number] [place] [address] Feb, [facility] [place] [facility] [address] [id number] [place] [address]- [address] 15 Feb, 2014 [facility] [place] [facility] [address] [id number] [place] [address] Feb, [facility] [place] [facility] [address] [id number] [place] [address] Feb, [facility] [place] [facility] [address] [id number] [place] [address] 24 Jan, 2014 [facility] [place] [facility] [address] [id number] [place] [address] Jan, [facility] [address] [id number] [place] [address] Jan, [facility] [place] [facility] [address] [id number] [place] [address] Jan, [facility] [place] [facility] [address] [id number] [place] [address]- [address] Dec, [facility] [place] [facility] [address] [id number] [place] [address] Dec, [facility] [place] [facility] [address] [id number] [place] [address] Sep, [facility] [place] [facility] [address] [id number] [place] [address] Sep, [facility] [place] [facility] [address] [id number] [place] [address]- [address] Aug, [facility] [address] [id number] [place] [address] Aug, [facility] [place] [facility] [address] [id number] [place] [address] Aug, [facility] [address] [id number] [place] [address] Aug, [facility] [place] [facility] [address] [id number] [place] [address] Aug, [facility] [place] [facility] [address] [id number] [place] [address] May, [facility] [place] [facility] [address] [id number] [place] [address] 4647 Jan, [facility] [place] [facility] [address] [id number] [place] [address] 2546 Jan, [facility] [place] [facility] [address] [id number] [place] [address] 9718 Dec, IMMUNIZATIONS No Known Immunizations SOCIAL HISTORY Never Assessed REASON FOR VISIT MRI PLAN OF CARE VITAL SIGNS MEDICATIONS Unknown [...]
--- OUTSIDE RECORDS SUMMARY | 2018-10-18 19:33 | XMS REPORT ---
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 Role Phone FLORENCIA HINOJOSA Unavailable PROBLEMS Type Condition ICD9-CM Code SOT83-PD Code Onset Dates Condition Status SNOMED Code Problem Intractable migraine without aura and without status migrainosus G43.019 Active 886520263 Problem Memory loss R41.3 Active 50591469 Problem Cervical disc disorder with radiculopathy, cervicothoracic region M50.13 Active 844540124 Problem Benign essential tremor G25.0 Active 071892762 Problem Other chronic pain G89.29 Active 75942731 Problem Mental status change resolved Z86.59 Active 438185175 Problem Arthritis M19.90 Active 7806116 Problem Chronic fatigue R53.82 Active 29906393 ALLERGIES No Information ENCOUNTERS Encounter Location Date Diagnosis [facility] [id number] [place] [address] 40210- 2533 19 Jul, 2018 Cervical disc disorder with radiculopathy, cervicothoracic region M50.13 and Benign essential tremor G25.0 [facility] [id number] [place] [address] 75541- 2231 14 Jul, 2018 Intractable migraine without aura and without status migrainosus G43.019 [facility] [id number] [place] [address] 94158- 5022 05 Jul, 2018 Memory loss R41.3 and Tremors of nervous system R25.1 [facility] [address] [address]- 0893 28 Jun, 2018 Intractable migraine without aura and without status migrainosus G43.019 ; Memory loss R41.3 and Tremors of nervous system R25.1 [facility] [id number] [place] [address] 64291- 1012 Jun, [facility] [id number] [place] [address] 63678- 6265 Jun, Intractable migraine without aura and without status migrainosus G43.019 [facility] [id number] [place] [address] 98339- 1426 May, Intractable migraine without aura and without status migrainosus G43.019 [facility] [id number] [place] [address] 12625- 6487 May, 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 [facility] [id number] [place] [address] 01051- 7533 May, 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 [facility] [id number] [place] [address] 43171- 8188 May, 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 [facility] [id number] [place] [address] 31053 -3835 May, Pain in finger of left hand M79.645 [facility] [id number] [place] [address] 54649- 0892 Apr, Intractable migraine without aura and without status migrainosus G43.019 [facility] [id number] [place] [address] 92388- 3226 Apr, Chronic fatigue R53.82 and Dizziness R42 [facility] [id number] [place] [address] 69832- 9432 March, [facility] [id number] [place] [address] 33719- 0625 March, Intractable migraine without aura and without status migrainosus G43.019 [facility] [id number] [place] [address] 77440- 6360 March, [facility] [id number] [place] [address] 01664- 0279 March, [facility] [id number] [place] [address] 40619- 1278 Feb, Intractable migraine without aura and without status migrainosus G43.019 [facility] [id number] [place] [address] 49250- 3746 Feb, Memory loss R41.3 and 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 [facility] [id number] [place] [address] 89901- 7161 Feb, Intractable migraine without aura and without status migrainosus G43.019 [facility] [id number] [place] [address] 47394- 2002 Jan, Intractable migraine without aura and without status migrainosus G43.019 [facility] [id number] [place] [address] 81835- 6902 Dec, [facility] [address] 08845- 8832 Dec, Intractable migraine without aura and without status migrainosus G43.019 [facility] [id number] [place] [address] 58781- 6532 Nov, [facility] [id number] [place] [address] 15051- 0572 Nov, Chronic fatigue R53.82 and Family history of thyroid disease Z83.49 [facility] [id number] [place] [address] 20649- 1019 Nov, Arthritis M19.90 ; Chronic fatigue R53.82 ; Family history of thyroid disease Z83.49 ; Grade IV hemorrhoids K64.3 and Other chronic pain G89.29 [facility] [id number] [place] [address] 50615- 4804 Nov, Intractable migraine without aura and without status migrainosus G43.019 [facility] [id number] [place] [address] 12927- 4735 Oct, [facility] [address], [place] [address]- 8716 Oct, Intractable migraine without aura and without status migrainosus G43.019 [facility] [address], [place] [address] 9936 Oct, [facility] [address], [place] [address]- 3196 Oct, [facility] [id number] [place] [address] 53930- 5530 Sep, Tremors of nervous system R25.1 [facility] [id number] [place] [address] 80876- 9496 Sep, [facility] [id number] [place] [address] 74118- 9756 Sep, Intractable migraine without aura and without status migrainosus G43.019 [facility] [address] [place] [address] 41583- 6126 Sep, [facility] [address] [place] [address] 35689- 8832 Sep, [facility] [address] [place] [address] 26620- 3418 Sep, Acute medial meniscus tear of right knee, initial encounter S83.241A and Acute lateral meniscus tear of left knee, initial encounter S83.282A [facility] [address], [place] [address]- 5396 Aug, Intractable migraine without aura and without status migrainosus G43.019 [facility] [address], [place] [address]- 0346 Aug, [facility] [id number] [place] [address] 80541- 1736 Aug, [facility] [address], [place] [address]- 2386 Jul, [facility] [id number] [place] [address] 17143- 1467 Jul, [facility] [id number] [place] [address] 65683- 5848 Jul, Intractable migraine without aura and without status migrainosus G43.019 ; Memory loss R41.3 ; Mental status change resolved Z86.59 ; Other chronic pain G89.29 and Pain in right knee M25.561 [facility] [id number] [place] [address] 33455- 1128 Jul, [facility] [id number] [place] [address] 56208- 8883 Jun, Tremors of nervous system R25.1 and Pelvic pain R10.2 [facility] [id number] [place] [address] 35164- 7495 Jun, [facility] [id number] [place] [address] 04185- 4545 Jun, [facility] [id number] [place] [address] 38433- 6507 Jun, [facility] [id number] [place] [address] 07755- 3438 May, [facility] [id number] [place] [address] 14077- 8045 May, [facility] [id number] [place] [address] 38827- 0219 May, Kidney pain N23 [facility] [id number] [place] [address] 34267- 8702 May, Pelvic pain R10.2 [facility] [id number] [place] [address] 71162 -2031 May, Wasp sting, accidental or unintentional, initial encounter T63.461A and Allergic contact dermatitis due to other agents L23.89 [facility] [id number] [place] [address] 13807- 1589 May, [facility] [id number] [place] [address] 67694- 0876 May, Pelvic pain R10.2 [facility] [id number] [place] [address] 43949- 8976 May, [facility] [id number] [place] [address] 35071- 4508 Apr, Tremors of nervous system R25.1 ; Blood in stool, gabby K92.1 ; 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 ; Memory loss R41.3 and Intractable migraine without aura and without status migrainosus G43.019 [facility] [id number] [place] [address] 63131- 9790 Apr, Blood in stool, gabby K92.1 [facility] [id number] [place] [address] 02029- 6978 Apr, Tremors of nervous system R25.1 ; 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 ; Memory loss R41.3 and Intractable migraine without aura and without status migrainosus G43.019 [facility] [id number] [place] [address] 13699- 4475 Apr, [facility] [id number] [place] [address] 87478- 2442 Apr, Tremor R25.1 [facility] [id number] [place] [address] 71055- 8405 March, [facility] [id number] [place] [address] 59265- 7097 March, Cyst of right ovary N83.201 [facility] [id number] [place] [address] 62101- 0193 March, Blood in stool, gabby K92.1 and Other fatigue R53.83 [facility] [id number] [place] [address] 15652- 1824 March, Cyst of right ovary N83.201 [facility] [address], [place] [address]- 2886 Feb, [facility] [address] [place] [address] 96714- 7706 Feb, [facility] [id number] [place] [address] 82697- 2036 Feb, Cyst of right ovary N83.201 and Right lower quadrant abdominal pain R10.31 [facility] [address], [place] [address]- 0626 Jan, Pelvic pain R10.2 [facility] [id number] [place] [address] 36605- 1686 Jan, [facility] [id number] [place] [address] 08272- 8466 Jan, [facility] [id number] [place] [address] 09400- 2675 Jan, Left groin pain R10.30 [facility] [address], [place] [address]- 2048 Dec, [facility] [id number] [place] [address] 80289- 7767 Dec, Pelvic pain R10.2 and Lumbosacral neuritis M54.17 [facility] [address], [place] [address]- 0716 Dec, [facility] [address] [place] [address] 82245- 7496 Dec, Lymph node enlargement R59.9 [facility] [address] [place] [address] 305883- 5396 Nov, Lymph node enlargement R59.9 [facility] [address], [place] [address]- 8936 Nov, [facility] [id number] [place] [address] 31392- 9590 Nov, Left groin pain R10.30 [facility] [id number] [place] [address] 63836- 0619 Nov, Varicose vein of leg I83.90 ; Essential hypertension I10 and Short lasting unilateral neuralgiform headache with conjunctival injection and tearing (SUNCT), not intractable G44.059 [facility] [id number] [place] [address] 15352 -5336 07 Jul, 2016 Post concussion syndrome F07.81 [facility] [id number] [place] [address] 01587- 0394 Jul, [facility] [id number] [place] [address] 28288- 0755 Oct, [facility] [id number] [place] [address] 31187- 1001 Oct, [facility] [id number] [place] [address] 57928- 4903 Aug, [facility] [id number] [place] [address] 16232- 4846 Aug, Obesity 278.00 [facility] [id number] [place] [address] 59314- 6300 Aug, [facility] [id number] [place] [address] 62831- 7776 Jul, Obesity 278.00 and Cervical spondylosis without myelopathy 721.0 [facility] [id number] [place] [address] 06487- 7933 March, [facility] [id number] [place] [address] 13611- 3441 Feb, Cervical spondylosis 721.0 [facility] [id number] [place] [address] 96085- 7477 Feb, [facility] [id number] [place] [address]- 0705 Feb, [facility] [place] [facility] [address] [id number] [place] [address]- 3876 Jan, [facility] [place] [facility] [address] [id number] [place] [address]- 7836 Jan, [facility] [place] [facility] [address] [id number] [place] [address]- 1445 Jan, [facility] [place] [facility] [address] [id number] [place] [address]- 9651 Jan, [facility] [place] [facility] [address] [id number] [place] [address]- 1024 Jan, [facility] [place] [facility] [address] [id number] [place] [address]- 0956 Jan, [facility] [place] [facility] [address] [id number] [place] [address]- 5770 Dec, [facility] [place] [facility] [address] [id number] [place] [address]- 0898 Dec, [facility] [place] [facility] [address] [id number] [place] [address]- 7530 Dec, [facility] [place] [facility] [address] [id number] [place] [address]- 8175 Dec, [facility] [place] [facility] [address] [id number] [place] [address]- 7159 Nov, [facility] [place] [facility] [address] [id number] [place] [address]- 5899 Nov, [facility] [place] [facility] [address] [id number] [place] [address]- 6894 Nov, [facility] [place] [facility] [address] [id number] [place] [address]- 2546 15 Nov, 2014 [facility] [place] [facility] [address] [id number] [place] [address]- 2721 Nov, [facility] [place] [facility] [address] [id number] [place] [address]- 5049 14 Nov, 2014 [facility] [place] [facility] [address] [id number] [place] [address]- 1631 Nov, [facility] [place] [facility] [address] [id number] [place] [address]- 9699 Nov, [facility] [place] [facility] [address] [id number] [place] [address]- 1564 Oct, [facility] [place] [facility] [address] [id number] [place] [address]- 5762 Oct, [facility] [place] [facility] [address] [id number] [place] [address]- 0770 Sep, [facility] [place] [facility] [address] [id number] [place] [address]- 2448 Sep, [facility] [place] [facility] [address] [id number] [place] [address]- 0007 Sep, [facility] [place] [facility] [address] [id number] [place] [address]- 8203 Sep, [facility] [place] [facility] [address] [id number] [place] [address]- 1599 29 Jul, 2014 [facility] [place] [facility] [address] [id number] [place] [address]- 1165 29 Jul, 2014 [facility] [place] [facility] [address] [id number] [place] [address]- 7103 26 Jul, 2014 [facility] [place] [facility] [address] [id number] [place] [address]- 1305 26 Jul, 2014 [facility] [place] [facility] [address] [id number] [place] [address]- 1629 19 Jul, 2014 [facility] [place] [facility] [address] [id number] [place] [address]- 2053 19 Jul, 2014 [facility] [place] [facility] [address] [id number] [place] [address]- 2054 Jul, [facility] [place] [facility] [address] [id number] [place] [address]- 2300 Jul, [facility] [place] [facility] [address] [id number] [place] [address]- 3697 Jul, [facility] [place] [facility] [address] [id number] [place] [address]- 3576 Jul, [facility] [place] [facility] [address] [id number] [place] [address]- 7513 Jun, [facility] [place] [facility] [address] [id number] [place] [address]- 8430 Jun, [facility] [place] [facility] [address] [id number] [place] [address]- 0500 Jun, [facility] [place] [facility] [address] [id number] [place] [address]- 3334 Jun, [facility] [place] [facility] [address] [id number] [place] [address]- 8648 Jun, [facility] [place] [facility] [address] [id number] [place] [address]- 0833 Jun, [facility] [place] [facility] [address] [id number] [place] [address]- 5926 May, [facility] [place] [facility] [address] [id number] [place] [address]- 9164 May, [facility] [place] [facility] [address] [id number] [place] [address]- 2271 May, [facility] [place] [facility] [address] [id number] [place] [address]- 5390 May, [facility] [place] [facility] [address] [id number] [place] [address]- 8956 May, [facility] [place] [facility] [address] [id number] [place] [address]- 5528 May, [facility] [place] [facility] [address] [id number] [place] [address]- 3196 Apr, [facility] [place] [facility] [address] [id number] [place] [address]- 3806 Apr, [facility] [place] [facility] [address] [id number] [place] [address]- 9505 Apr, [facility] [place] [facility] [address] [id number] [place] [address]- 3669 Apr, [facility] [place] [facility] [address] [id number] [place] [address]- 6727 Apr, [facility] [place] [facility] [address] [id number] [place] [address]- 7797 Apr, [facility] [place] [facility] [address] [id number] [place] [address]- 1345 Apr, [facility] [place] [facility] [address] [id number] [place] [address]- 3112 Apr, [facility] [place] [facility] [address] [id number] [place] [address]- 1792 Apr, [facility] [place] [facility] [address] [id number] [place] [address]- 5434 Apr, [facility] [place] [facility] [address] [id number] [place] [address]- 5563 Apr, [facility] [place] [facility] [address] [id number] [place] [address]- 6941 Apr, [facility] [place] [facility] [address] [id number] [place] [address]- 0656 Apr, [facility] [place] [facility] [address] [id number] [place] [address]- 5398 March, [facility] [place] [facility] [address] [id number] [place] [address]- 1480 March, [facility] [place] [facility] [address] [id number] [place] [address]- 5151 March, [facility] [place] [facility] [address] [id number] [place] [address]- 2948 March, [facility] [place] [facility] [address] [id number] [place] [address]- 2547 March, [facility] [place] [facility] [address] [id number] [place] [address]- 8188 March, [facility] [place] [facility] [address] [id number] [place] [address]- 9673 Feb, [facility] [place] [facility] [address] [id number] [place] [address]- 0780 Feb, [facility] [place] [facility] [address] [id number] [place] [address]- 6126 Feb, [facility] [place] [facility] [address] [id number] [place] [address]- 8094 Feb, [facility] [place] [facility] [address] [id number] [place] [address]- 6936 Feb, [facility] [place] [facility] [address] [id number] [place] [address]- 4030 Feb, [facility] [place] [facility] [address] [id number] [place] [address]- 4270 Feb, [facility] [place] [facility] [address] [id number] [place] [address] Feb, [facility] [place] [facility] [address] [id number] [place] [address] Feb, [facility] [place] [facility] [address] [id number] [place] [address] Feb, [facility] [place] [facility] [address] [id number] [place] [address] Jan, [facility] [place] [facility] [address] [id number] [place] [address] Jan, [facility] [place] [facility] [address] [address] Jan, [facility] [address] [address] Jan, [facility] [address] [facility] [id number], [place] [address] Dec, [facility] [id number] [address] Dec, [facility] [address] [id number] [address] Sep, [facility] [id number] [address] Sep, [facility] [id number], [place] [address] Aug, [facility] [id number], [place] [address] Aug, [facility] [id number], [place] [address] Aug, [facility] [id number], [place] [address] Aug, [facility] [id number], [place] [address] Aug, [facility] [address], [place] [address] May, [facility] [address] [id number], [place] [address] Jan, [facility] [id number] [address] Jan, [facility] [id number], [place] [address] Dec, IMMUNIZATIONS No Known Immunizations SOCIAL HISTORY Never Assessed REASON FOR VISIT med request PLAN OF CARE VITAL SIGNS MEDICATIONS Unknown [...]
--- OUTSIDE RECORDS SUMMARY | 2018-10-18 19:34 | XMS REPORT ---
Author Author FLORENCIA HINOJOSA Organization [facility] Address [address] [place] [address] Care Team Providers Care Vendor Quality Supervisor Name Role Phone FLORENCIA HINOJOSA Unavailable PROBLEMS Type Condition ICD9-CM Code HVM89-VZ Code Onset Dates Condition Status SNOMED Code Problem Arthritis M19.90 Active 1456995 Problem Chronic fatigue R53.82 Active 82803932 Problem Intractable migraine without aura and without status migrainosus G43.019 Active 983143880 Problem Memory loss R41.3 Active 66393940 Problem Other chronic pain G89.29 Active 70624334 Problem Mental status change resolved Z86.59 Active [id number] ALLERGIES No Information ENCOUNTERS Encounter Location Date Diagnosis [place] [id number] [place] [address] 59928- 9486 Jul, Memory loss R41.3 and Tremors of nervous system R25.1 [place] [address] 21388- 2946 Jun, Intractable migraine without aura and without status migrainosus G43.019 ; Memory loss R41.3 and Tremors of nervous system R25.1 [place] [id number] [place] [address] 47877- 8764 Jun, [place] [id number] [place] [address] 53896- 3521 Jun, Intractable migraine without aura and without status migrainosus G43.019 [place] [address] 59408- 0428 May, Intractable migraine without aura and without status migrainosus G43.019 [place] [id number] [place] [address] 28869- 8438 May, 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 [facility] [id number] [place] [address] 80635- 3548 May, 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 [facility] [id number] [place] [address] 59720- 3876 May, 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 [facility] [id number] [place] [address] 65409 -6316 May, Pain in finger of left hand M79.645 [facility] [id number] [place] [address] 79242- 6796 Apr, Intractable migraine without aura and without status migrainosus G43.019 [facility] [id number] [place] [address] 50429- 0239 Apr, Chronic fatigue R53.82 and Dizziness R42 [facility] [id number] [place] [address] 34294- 7290 March, [facility] [id number] [place] [address] 62031- 1675 March, Intractable migraine without aura and without status migrainosus G43.019 [facility] [id number] [place] [address] 81879- 2603 March, [facility] [id number] [place] [address] 57605- 3124 March, [facility] [id number] [place] [address] 81646- 5670 Feb, Intractable migraine without aura and without status migrainosus G43.019 [facility] [id number] [place] [address] 73044- 5963 Feb, Memory loss R41.3 and 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 [facility] [id number] [place] [address] 40743- 0358 Feb, Intractable migraine without aura and without status migrainosus G43.019 [facility] [address] [address]- 9478 Jan, Intractable migraine without aura and without status migrainosus G43.019 [facility] [id number] [place] [address] 16868- 6076 Dec, [facility] [id number] [place] [address] 85686- 6906 Dec, Intractable migraine without aura and without status migrainosus G43.019 [facility] [id number] [place] [address] 64557- 5896 Nov, [place] [id number] [place] [address] 70046- 8814 Nov, Chronic fatigue R53.82 and Family history of thyroid disease Z83.49 [place] [id number] [place] [address] 31376- 8796 Nov, Arthritis M19.90 ; Chronic fatigue R53.82 ; Family history of thyroid disease Z83.49 ; Grade IV hemorrhoids K64.3 and Other chronic pain G89.29 [place] [id number] [place] [address] 51416- 3934 Nov, Intractable migraine without aura and without status migrainosus G43.019 [facility] [address] [address]- 2626 Oct, [facility] [id number] [place] [address] 73414- 3495 Oct, Intractable migraine without aura and without status migrainosus G43.019 [facility] [id number] [place] [address] 94561- 5566 Oct, [facility] [id number] [place] [address] 872652- 0566 Oct, [facility] [id number] [place] [address] 88207- 8289 Sep, Tremors of nervous system R25.1 [facility] [address] [address]- 8976 Sep, [facility] [address] [place] [address] 85224- 5946 Sep, Intractable migraine without aura and without status migrainosus G43.019 [facility] [address] [address] 2546 Sep, [facility] [address] [address] 2546 Sep, [facility] [address] [place] [address] 87841- 1476 Sep, Acute medial meniscus tear of right knee, initial encounter S83.241A and Acute lateral meniscus tear of left knee, initial encounter S83.282A [facility] [address] [place] [address] 50784- 4556 Aug, Intractable migraine without aura and without status migrainosus G43.019 [facility] [address] [address] 2546 Aug, [facility] [address] [place] [address] 95984- 2546 Aug, [facility] [address] [address]- 2546 Jul, [facility] [address] [place] [address] 87598 2546 Jul, [facility] [address] [address]- 2546 Jul, Intractable migraine without aura and without status migrainosus G43.019 ; Memory loss R41.3 ; Mental status change resolved Z86.59 ; Other chronic pain G89.29 and Pain in right knee M25.561 [facility] [address] [address]- 2546 18 Jul, 2017 [facility] [address] [address]- 7695 Jun, Tremors of nervous system R25.1 and Pelvic pain R10.2 [facility] [id number] [place] [address] 39212- 4075 Jun, [facility] [id number] [place] [address] 63215- 8995 Jun, [facility] [id number] [place] [address] 43443- 7798 Jun, [facility] [id number] [place] [address] 57907- 1565 May, [facility] [id number] [place] [address] 23939- 6359 May, [facility] [id number] [place] [address] 91746- 8281 May, Kidney pain N23 [facility] [id number] [place] [address] 09390- 8636 May, Pelvic pain R10.2 [facility] [id number] [place] [address] 61819 -6454 May, Wasp sting, accidental or unintentional, initial encounter T63.461A and Allergic contact dermatitis due to other agents L23.89 [facility] [id number] [place] [address] 70753- 4123 May, [facility] [id number] [place] [address] 63405- 9144 May, Pelvic pain R10.2 [facility] [id number] [place] [address] 49022- 1393 May, [facility] [id number] [place] [address] 82558- 6014 Apr, Tremors of nervous system R25.1 ; Blood in stool, gabby K92.1 ; 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 ; Memory loss R41.3 and Intractable migraine without aura and without status migrainosus G43.019 [facility] [address] [facility] [id number] [place] [address] 12243 2546 Apr, Blood in stool, gabby K92.1 [facility] [id number] [place] [address] 51101 2546 Apr, Tremors of nervous system R25.1 ; 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 ; Memory loss R41.3 and Intractable migraine without aura and without status migrainosus G43.019 [facility] [id number] [place] [address] 93819 2546 Apr, [facility] [id number] [place] [address] 06003 2547 Apr, Tremor R25.1 [facility] [id number] [place] [address] 88381- 2156 March, [facility] [id number] [place] [address] 94893- 3545 March, Cyst of right ovary N83.201 [facility] [id number] [place] [address] 50279 2546 March, Blood in stool, gabby K92.1 and Other fatigue R53.83 [facility] [id number] [place] [address] 99611 2546 March, Cyst of right ovary N83.201 [facility] [id number] [place] [address] 26250 2546 Feb, [facility] [id number] [place] [address] 17508 2546 Feb, [facility] [id number] [place] [address] 26660- 2542 Feb, Cyst of right ovary N83.201 and Right lower quadrant abdominal pain R10.31 [facility] [address] 68213- 4466 Jan, Pelvic pain R10.2 [facility] [id number] [place] [address] 40484- 7393 Jan, [facility] [id number] [place] [address] 79181- 0151 Jan, [facility] [id number] [place] [address] 51544- 8459 Jan, Left groin pain R10.30 [facility] [id number] [place] [address] 98738- 6909 Dec, [facility] [address] 16913- 2314 Dec, Pelvic pain R10.2 and Lumbosacral neuritis M54.17 [facility] [id number] [place] [address] 66088- 4207 Dec, [facility] [id number] [place] [address] 19987- 4883 Dec, Lymph node enlargement R59.9 [facility] [id number] [place] [address] 30526- 4353 Nov, Lymph node enlargement R59.9 [facility] [id number] [place] [address] 19375- 0030 Nov, [facility] [id number] [place] [address] 59809- 5629 Nov, Left groin pain R10.30 [facility] [id number] [place] [address] 63515- 3937 Nov, Varicose vein of leg I83.90 ; Essential hypertension I10 and Short lasting unilateral neuralgiform headache with conjunctival injection and tearing (SUNCT), not intractable G44.059 [facility] [id number] [place] [address] 66305 -5390 07 Jul, 2016 Post concussion syndrome F07.81 [facility] [id number] [address]- 2673 07 Jul, 2016 [facility] [address] [place] [address]- 9716 Oct, [facility] [address] [address]- 9746 Oct, [facility] [id number] [place] [address] 58934- 9819 Aug, [facility] [address] [address]- 5951 Aug, Obesity 278.00 [facility] [address] [place] [address] 46531- 8356 Aug, [facility] [address] [address]- 7908 Jul, Obesity 278.00 and Cervical spondylosis without myelopathy 721.0 [facility] [address] [address]- 5932 March, [facility] [address] [address]- 2270 30 Feb, 2015 Cervical spondylosis 721.0 [facility] [address] [place] 0800 14 Feb, 2015 [facility] [address] [address]- 5911 Feb, [facility] [address] [address]- 0328 Jan, [facility] [address] [address]- 3206 Jan, [facility] [address] [address]- 2536 Jan, [facility] [address] [address]- 6520 Jan, [facility] [place] [facility] [address] [id number] [place] [address]- 3066 Jan, [facility] [place] [facility] [address] [id number] [place] [address]- 3795 Jan, [facility] [place] [facility] [address] [id number] [place] [address]- 8165 Dec, [facility] [place] [facility] [address] [id number] [place] [address]- 0229 Dec, [facility] [place] [facility] [address] [id number] [place] [address]- 4949 Dec, [facility] [place] [facility] [address] [id number] [place] [address]- 6093 Dec, [facility] [place] [facility] [address] [id number] [place] [address]- 3039 Nov, [facility] [place] [facility] [address] [id number] [place] [address]- 3735 Nov, [facility] [place] [facility] [address] [id number] [place] [address]- 0772 Nov, [facility] [place] [facility] [address] [id number] [place] [address]- 9240 Nov, [facility] [place] [facility] [address] [id number] [place] [address]- 9916 Nov, [facility] [place] [facility] [address] [id number] [place] [address]- 1265 Nov, [facility] [place] [facility] [address] [id number] [place] [address]- 2629 Nov, [facility] [place] [facility] [address] [id number] [place] [address]- 3584 Nov, [facility] [place] [facility] [address] [id number] [place] [address]- 5627 Oct, [facility] [place] [facility] [address] [id number] [place] [address]- 9108 Oct, [facility] [place] [facility] [address] [id number] [place] [address]- 6382 Sep, [facility] [place] [facility] [address] [id number] [place] [address]- 5442 Sep, [facility] [place] [facility] [address] [id number] [place] [address]- 5812 Sep, [facility] [place] [facility] [address] [id number] [place] [address]- 3460 Sep, [facility] [place] [facility] [address] [id number] [place] [address]- 9216 Jul, [facility] [place] [facility] [address] [id number] [place] [address]- 1966 Jul, [facility] [place] [facility] [address] [id number] [place] [address]- 9763 Jul, [facility] [place] [facility] [address] [id number] [place] [address]- 3551 Jul, [facility] [place] [facility] [address] [id number] [place] [address]- 2544 Jul, [facility] [place] [facility] [address] [id number] [place] [address]- 2548 Jul, [facility] [place] [facility] [address] [id number] [place] [address] 2548 Jul, 2013 [facility] [place] [facility] [address] [id number] [place] [address]- 2543 Jul, [facility] [place] [facility] [address] [id number] [place] [address]- 2549 Jul, [facility] [place] [facility] [address] [id number] [place] [address]- 2543 Jul, [facility] [place] [facility] [address] [id number] [place] [address]- 6858 Jun, [facility] [place] [facility] [address] [id number] [place] [address]- 0269 Jun, [facility] [place] [facility] [address] [id number] [place] [address]- 5432 Jun, [facility] [place] [facility] [address] [id number] [place] [address]- 0572 Jun, [facility] [place] [facility] [address] [id number] [place] [address]- 5829 Jun, [facility] [place] [facility] [address] [id number] [place] [address]- 3369 Jun, [facility] [place] [facility] [address] [id number] [place] [address]- 6736 May, [facility] [place] [facility] [address] [id number] [place] [address]- 4660 May, [facility] [place] [facility] [address] [id number] [place] [address]- 3914 May, [facility] [place] [facility] [address] [id number] [place] [address]- 0571 May, [facility] [place] [facility] [address] [id number] [place] [address]- 8317 May, [facility] [place] [facility] [address] [id number] [place] [address]- 8915 May, [facility] [place] [facility] [address] [id number] [place] [address]- 1511 Apr, [facility] [place] [facility] [address] [id number] [place] [address]- 6131 Apr, [facility] [place] [facility] [address] [id number] [place] [address]- 3989 Apr, [facility] [place] [facility] [address] [id number] [place] [address]- 0426 Apr, [facility] [place] [facility] [address] [id number] [place] [address]- 8455 Apr, [facility] [place] [facility] [address] [id number] [place] [address]- 4653 Apr, [facility] [place] [facility] [address] [id number] [place] [address]- 4563 Apr, [facility] [place] [facility] [address] [id number] [place] [address]- 2673 Apr, [facility] [place] [facility] [address] [id number] [place] [address]- 9662 Apr, [facility] [place] [facility] [address] [id number] [place] [address]- 2409 Apr, [facility] [place] [facility] [address] [id number] [place] [address]- 4776 Apr, [facility] [place] [facility] [address] [id number] [place] [address]- 1037 Apr, [facility] [place] [facility] [address] [id number] [place] [address]- 0905 Apr, [facility] [place] [facility] [address] [id number] [place] [address]- 7994 March, [facility] [place] [facility] [address] [id number] [place] [address]- 3032 March, [facility] [place] [facility] [address] [id number] [place] [address]- 3075 March, [facility] [place] [facility] [address] [id number] [place] [address]- 2790 March, [facility] [place] [facility] [address] [id number] [place] [address]- 9562 March, [facility] [place] [facility] [address] [id number] [place] [address]- 9547 March, [facility] [place] [facility] [address] [id number] [place] [address]- 3096 Feb, [facility] [place] [facility] [address] [id number] [place] [address]- 8154 30 Feb, 2014 [facility] [place] [facility] [address] [id number] [place] [address]- 5688 Feb, [facility] [place] [facility] [address] [id number] [place] [address]- 7437 Feb, [facility] [place] [facility] [address] [id number] [place] [address]- 5830 Feb, [facility] [place] [facility] [address] [id number] [place] [address]- 0726 18 Feb, 2014 [facility] [place] [facility] [address] [id number] [place] [address]- 0508 Feb, [facility] [place] [facility] [address] [id number] [place] [address]- 5025 15 Feb, 2014 [facility] [place] [facility] [address] [id number] [place] [address]- 5309 Feb, [facility] [place] [facility] [address] [id number] [place] [address]- 0527 Feb, [facility] [place] [facility] [address] [id number] [place] [address]- 9687 24 Jan, 2014 [facility] [place] [facility] [address] [id number] [place] [address]- 6937 Jan, [facility] [place] [facility] [address] [id number] [place] [address]- 4006 Jan, [facility] [place] [facility] [address] [id number] [place] [address]- 5654 Jan, [facility] [place] [facility] [address] [id number] [place] 0641 24 Dec, 2013 [facility] [place] [facility] [address] [id number] [place] [id number] 24 Dec, 2013 [facility] [place] [facility] [address] [id number] [place] [address] Sep, [facility] [address] [facility] [id number] [place] [address] Sep, [facility] [address] [facility] [id number] [place] [address] Aug, [facility] [address] [facility] [id number] [place] [address] Aug, [facility] [address] [facility] [id number] [place] [address] Aug, [facility] [address] [facility] [id number] [place] [address] Aug, [facility] [address] [facility] [id number] [place] [address] Aug, [facility] [id number] [place] [address] May, [facility] [id number] [place] [address] Jan, [facility] [id number] [place] [address] Jan, [facility] [address] [id number] [place] [address] Dec, IMMUNIZATIONS No Known Immunizations SOCIAL HISTORY Never Assessed REASON FOR VISIT Controlled Med Refill 06/11/18 PLAN OF CARE VITAL SIGNS MEDICATIONS Medication Instructions Dosage Frequency Start Date End Date Duration Status Oxycodone HCl 10 mg Orally 4 times a day 1 tablet as needed 6h May, 28 days Active Ambien 10 mg Orally Once a day 1 tablet at bedtime as needed 24h Aug, 28 days Active Diazepam 5 mg Orally Twice a day 1 tablet as needed 12h 28 days Active RESULTS No Results PROCEDURES No Known procedures INSTRUCTIONS MEDICATIONS ADMINISTERED No Known Medications MEDICAL (GENERAL) HISTORY Type Description Date Medical History Asthma Medical History Hives since 2000 Surgical History spinal fusion 2015 Surgical History Tonsillectomy Surgical History Appendectomy Surgical History section Surgical History epidural anesthesia/injection Surgical History Hemorrhoidecomy with umu Surgical History colonoscopy
--- OUTSIDE RECORDS SUMMARY | 2018-10-18 19:34 | XMS REPORT ---
Author Author FLORENCIA HINOJOSA Organization [facility] Address [address] [place] [address] Care Team Providers Care Powder Loader Name Role Phone FLORENCIA HINOJOSA Unavailable PROBLEMS Type Condition ICD9-CM Code [id number] Code Onset Dates Condition Status SNOMED Code Problem Intractable migraine without aura and without status migrainosus G43.019 Active 797305453 Problem Memory loss R41.3 Active 84166365 Problem Cervical disc disorder with radiculopathy, cervicothoracic region M50.13 Active 841960972 Problem Benign essential tremor G25.0 Active 945248204 Problem Other chronic pain G89.29 Active 06802790 Problem Mental status change resolved Z86.59 Active 605976930 Problem Arthritis M19.90 Active 4696297 Problem Chronic fatigue R53.82 Active 03253655 ALLERGIES No Information ENCOUNTERS Encounter Location Date Diagnosis [facility] [id number] [place] [address] 59636- 5925 Jul, Cervical disc disorder with radiculopathy, cervicothoracic region M50.13 and Benign essential tremor G25.0 [facility] [id number] [place] [address] 32808- 1628 14 Jul, 2018 Intractable migraine without aura and without status migrainosus G43.019 [facility] [id number] [place] [address] 87861- 4635 05 Jul, 2018 Memory loss R41.3 and Tremors of nervous system R25.1 [facility] [id number] [place] [address] 90808- 7019 28 Jun, 2018 Intractable migraine without aura and without status migrainosus G43.019 ; Memory loss R41.3 and Tremors of nervous system R25.1 [facility] [id number] [place] [address] 84307- 4707 Jun, [facility] [id number] [place] [address] 79343- 3915 Jun, Intractable migraine without aura and without status migrainosus G43.019 [facility] [id number] [place] [address] 93788- 2056 May, Intractable migraine without aura and without status migrainosus G43.019 [facility] [id number] [place] [address] 30900- 6471 May, 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 [facility] [id number] [place] [address] 96372- 6148 May, 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 [facility] [id number] [place] [address] 28886- 3257 May, 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 [facility] [id number] [place] [address] 22332 -1402 May, Pain in finger of left hand M79.645 [facility] [id number] [place] [address] 22259- 0504 Apr, Intractable migraine without aura and without status migrainosus G43.019 [facility] [id number] [place] [address] 42201- 5422 Apr, Chronic fatigue R53.82 and Dizziness R42 [facility] [id number] [place] [address] 16408- 5828 March, [facility] [id number] [place] [address] 38261- 9220 March, Intractable migraine without aura and without status migrainosus G43.019 [facility] [id number] [place] [address] 03606- 2337 March, [facility] [id number] [place] [address] 49727- 0318 March, [facility] [id number] [place] [address] 89637- 3336 Feb, Intractable migraine without aura and without status migrainosus G43.019 [facility] [id number] [place] [address] 31040- 3506 Feb, Memory loss R41.3 and 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 [facility] [id number] [place] [address] 65679- 6797 Feb, Intractable migraine without aura and without status migrainosus G43.019 [facility] [id number] [place] [address] 07867- 6830 Jan, Intractable migraine without aura and without status migrainosus G43.019 [facility] [id number] [place] [address] 53066- 6657 Dec, [facility] [address] 10472- 0401 Dec, Intractable migraine without aura and without status migrainosus G43.019 [facility] [id number] [place] [address] 44868- 2697 Nov, [facility] [id number] [place] [address] 24728- 8080 Nov, Chronic fatigue R53.82 and Family history of thyroid disease Z83.49 [facility] [id number] [place] [address] 18900- 2786 Nov, Arthritis M19.90 ; Chronic fatigue R53.82 ; Family history of thyroid disease Z83.49 ; Grade IV hemorrhoids K64.3 and Other chronic pain G89.29 [facility] [id number] [place] [address] 14273- 6719 Nov, Intractable migraine without aura and without status migrainosus G43.019 [facility] [id number] [place] [address] 88445- 6051 Oct, [facility] [address] [place] [address]- 7086 Oct, Intractable migraine without aura and without status migrainosus G43.019 [facility] [address] [address]- 8916 Oct, [facility] [address] [place] [address]- 3006 Oct, [facility] [id number] [place] [address] 88761- 6344 Sep, Tremors of nervous system R25.1 [facility] [id number] [place] [address] 47468- 7596 Sep, [facility] [id number] [place] [address] 27968- 6536 Sep, Intractable migraine without aura and without status migrainosus G43.019 [facility] [id number] [place] [address] 02955- 1346 Sep, [facility] [id number] [place] [address] 59559- 6074 Sep, [facility] [id number] [place] [address] 85501- 4465 Sep, Acute medial meniscus tear of right knee, initial encounter S83.241A and Acute lateral meniscus tear of left knee, initial encounter S83.282A [facility] [address] [place] [address]- 3966 Aug, Intractable migraine without aura and without status migrainosus G43.019 [facility] [address] [place] [address]- 8096 Aug, [facility] [id number] [place] [address] 68202- 5856 Aug, [facility] [address] [place] [address]- 9046 Jul, [facility] [id number] [place] [address] 86284- 1921 Jul, [facility] [id number] [place] [address] 52225- 5626 Jul, Intractable migraine without aura and without status migrainosus G43.019 ; Memory loss R41.3 ; Mental status change resolved Z86.59 ; Other chronic pain G89.29 and Pain in right knee M25.561 [facility] [id number] [place] [address] 33618- 5781 Jul, [facility] [id number] [place] [address] 34954- 0614 Jun, Tremors of nervous system R25.1 and Pelvic pain R10.2 [facility] [id number] [place] [address] 87672- 7885 Jun, [facility] [id number] [place] [address] 47417- 9933 Jun, [facility] [id number] [place] [address] 50728- 5080 Jun, [facility] [id number] [place] [address] 37098- 1971 May, [facility] [id number] [place] [address] 32448- 1822 May, [facility] [id number] [place] [address] 64078- 5674 May, Kidney pain N23 [facility] [id number] [place] [address] 69589- 3688 May, Pelvic pain R10.2 [facility] [id number] [place] [address] 01016 -4017 May, Wasp sting, accidental or unintentional, initial encounter T63.461A and Allergic contact dermatitis due to other agents L23.89 [facility] [id number] [place] [address] 34902- 9012 May, [facility] [id number] [place] [address] 19343- 8886 May, Pelvic pain R10.2 [facility] [id number] [place] [address] 30889- 4126 May, [facility] [id number] [place] [address] 75647- 8654 Apr, Tremors of nervous system R25.1 ; Blood in stool, gabby K92.1 ; 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 ; Memory loss R41.3 and Intractable migraine without aura and without status migrainosus G43.019 [facility] [id number] [place] [address] 13985- 1622 Apr, Blood in stool, gabby K92.1 [facility] [id number] [place] [address] 07053- 2557 Apr, Tremors of nervous system R25.1 ; 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 ; Memory loss R41.3 and Intractable migraine without aura and without status migrainosus G43.019 [facility] [id number] [place] [address] 18349- 2647 Apr, [facility] [id number] [place] [address] 27180- 2956 Apr, Tremor R25.1 [facility] [id number] [place] [address] 01497- 6650 March, [facility] [id number] [place] [address] 13332- 5840 March, Cyst of right ovary N83.201 [facility] [id number] [place] [address] 51704- 9551 March, Blood in stool, gabby K92.1 and Other fatigue R53.83 [facility] [id number] [place] [address] 07364- 2483 March, Cyst of right ovary N83.201 [facility] [address] [place] [address]- 6226 Feb, [facility] [id number] [place] [address] 79886- 1966 Feb, [facility] [id number] [place] [address] 94655- 3186 Feb, Cyst of right ovary N83.201 and Right lower quadrant abdominal pain R10.31 [facility] [address] [place] [address]- 3796 Jan, Pelvic pain R10.2 [facility] [id number] [place] [address] 54302- 2096 Jan, [facility] [id number] [place] [address] 34990- 1386 Jan, [facility] [id number] [place] [address] 46454- 1998 Jan, Left groin pain R10.30 [facility] [address] [place] [address]- 0523 Dec, [facility] [id number] [place] [address] 92213- 4628 Dec, Pelvic pain R10.2 and Lumbosacral neuritis M54.17 [facility] [address] [place] [address]- 4666 Dec, [facility] [id number] [place] [address] 39700- 4676 Dec, Lymph node enlargement R59.9 [facility] [id number] [place] [address] 879497- 9156 Nov, Lymph node enlargement R59.9 [facility] [address], [place] [address]- 5436 Nov, [facility] [id number] [place] [address] 78251- 1244 Nov, Left groin pain R10.30 [facility] [id number] [place] [address] 52226- 0559 Nov, Varicose vein of leg I83.90 ; Essential hypertension I10 and Short lasting unilateral neuralgiform headache with conjunctival injection and tearing (SUNCT), not intractable G44.059 [facility] [id number] [place] [address] 48600 -5722 07 Jul, 2016 Post concussion syndrome F07.81 [facility] [id number] [place] [address] 40555- 0787 Jul, [facility] [id number] [place] [address] 67990- 7043 Oct, [facility] [id number] [place] [address] 57117- 7815 Oct, [facility] [id number] [place] [address] 61449- 7283 Aug, [facility] [id number] [place] [address] 72856- 6890 Aug, Obesity 278.00 [facility] [id number] [place] [address] 68001- 1242 Aug, [facility] [id number] [place] [address] 85628- 6535 Jul, Obesity 278.00 and Cervical spondylosis without myelopathy 721.0 [facility] [id number] [place] [address] 44659- 9183 March, [facility] [id number] [place] [address] 68004- 6685 Feb, Cervical spondylosis 721.0 [facility] [id number] [place] [address] 34373- 4826 Feb, [facility] [id number] [place] [address]- 1714 Feb, [facility] [place] [facility] [address] [id number] [place] [address]- 7648 Jan, [facility] [place] [facility] [address] [id number] [place] [address]- 8676 Jan, [facility] [place] [facility] [address] [id number] [place] [address]- 1594 Jan, [facility] [place] [facility] [address] [id number] [place] [address]- 0357 Jan, [facility] [place] [facility] [address] [id number] [place] [address]- 5404 Jan, [facility] [place] [facility] [address] [id number] [place] [address]- 8056 Jan, [facility] [place] [facility] [address] [id number] [place] [address]- 6521 Dec, [facility] [place] [facility] [address] [id number] [place] [address]- 3050 Dec, [facility] [place] [facility] [address] [id number] [place] [address]- 1080 Dec, [facility] [place] [facility] [address] [id number] [place] [address]- 3157 Dec, [facility] [place] [facility] [address] [id number] [place] [address]- 5862 Nov, [facility] [place] [facility] [address] [id number] [place] [address]- 3102 Nov, [facility] [place] [facility] [address] [id number] [place] [address]- 4756 Nov, [facility] [place] [facility] [address] [id number] [place] [address]- 2546 15 Nov, 2014 [facility] [place] [facility] [address] [id number] [place] [address]- 8462 Nov, [facility] [place] [facility] [address] [id number] [place] [address]- 1194 14 Nov, 2014 [facility] [place] [facility] [address] [id number] [place] [address]- 3670 Nov, [facility] [place] [facility] [address] [id number] [place] [address]- 3519 Nov, [facility] [place] [facility] [address] [id number] [place] [address]- 7642 Oct, [facility] [place] [facility] [address] [id number] [place] [address]- 7903 Oct, [facility] [place] [facility] [address] [id number] [place] [address]- 5354 Sep, [facility] [place] [facility] [address] [id number] [place] [address]- 4483 Sep, [facility] [place] [facility] [address] [id number] [place] [address]- 2382 Sep, [facility] [place] [facility] [address] [id number] [place] [address]- 7803 Sep, [facility] [place] [facility] [address] [id number] [place] [address]- 5237 29 Jul, 2014 [facility] [place] [facility] [address] [id number] [place] [address]- 7097 29 Jul, 2014 [facility] [place] [facility] [address] [id number] [place] [address]- 5535 26 Jul, 2014 [facility] [place] [facility] [address] [id number] [place] [address]- 0748 26 Jul, 2014 [facility] [place] [facility] [address] [id number] [place] [address]- 3045 19 Jul, 2014 [facility] [place] [facility] [address] [id number] [place] [address]- 9766 19 Jul, 2014 [facility] [place] [facility] [address] [id number] [place] [address]- 6050 Jul, [facility] [place] [facility] [address] [id number] [place] [address]- 8895 Jul, [facility] [place] [facility] [address] [id number] [place] [address]- 5458 Jul, [facility] [place] [facility] [address] [id number] [place] [address]- 7226 Jul, [facility] [place] [facility] [address] [id number] [place] [address]- 8511 Jun, [facility] [place] [facility] [address] [id number] [place] [address]- 0654 Jun, [facility] [place] [facility] [address] [id number] [place] [address]- 0601 Jun, [facility] [place] [facility] [address] [id number] [place] [address]- 8123 Jun, [facility] [place] [facility] [address] [id number] [place] [address]- 1052 Jun, [facility] [place] [facility] [address] [id number] [place] [address]- 0452 Jun, [facility] [place] [facility] [address] [id number] [place] [address]- 6399 May, [facility] [place] [facility] [address] [id number] [place] [address]- 3142 May, [facility] [place] [facility] [address] [id number] [place] [address]- 8621 May, [facility] [place] [facility] [address] [id number] [place] [address]- 3376 May, [facility] [place] [facility] [address] [id number] [place] [address]- 4599 May, [facility] [place] [facility] [address] [id number] [place] [address]- 0732 May, [facility] [place] [facility] [address] [id number] [place] [address]- 5333 Apr, [facility] [place] [facility] [address] [id number] [place] [address]- 0097 Apr, [facility] [place] [facility] [address] [id number] [place] [address]- 9038 Apr, [facility] [place] [facility] [address] [id number] [place] [address]- 9852 Apr, [facility] [place] [facility] [address] [id number] [place] [address]- 2739 Apr, [facility] [place] [facility] [address] [id number] [place] [address]- 3388 Apr, [facility] [place] [facility] [address] [id number] [place] [address]- 8799 Apr, [facility] [place] [facility] [address] [id number] [place] [address]- 6548 Apr, [facility] [place] [facility] [address] [id number] [place] [address]- 7432 Apr, [facility] [place] [facility] [address] [id number] [place] [address]- 2407 Apr, [facility] [place] [facility] [address] [id number] [place] [address]- 9012 Apr, [facility] [place] [facility] [address] [id number] [place] [address]- 6656 Apr, [facility] [place] [facility] [address] [id number] [place] [address]- 5078 Apr, [facility] [place] [facility] [address] [id number] [place] [address]- 3230 March, [facility] [place] [facility] [address] [id number] [place] [address]- 8414 March, [facility] [place] [facility] [address] [id number] [place] [address]- 9215 March, [facility] [place] [facility] [address] [id number] [place] [address]- 7862 March, [facility] [place] [facility] [address] [id number] [place] [address]- 8006 March, [facility] [place] [facility] [address] [id number] [place] [address]- 3161 March, [facility] [place] [facility] [address] [id number] [place] [address]- 7206 Feb, [facility] [place] [facility] [address] [id number] [place] [address]- 9823 Feb, [facility] [place] [facility] [address] [id number] [place] [address]- 4083 Feb, [facility] [place] [facility] [address] [id number] [place] [address]- 2171 Feb, [facility] [place] [facility] [address] [id number] [place] [address] Feb, [facility] [place] [facility] [address] [id number] [place] [address] Feb, [facility] [place] [facility] [address] [id number] [place] [address] Feb, [facility] [place] [facility] [address] [id number] [place] [address] Feb, [facility] [place] [facility] [address] [id number] [place] [address] Feb, [facility] [place] [facility] [address] [id number] [place] [address] Feb, [facility] [place] [facility] [address] [id number] [place] [address] Jan, [facility] [place] [facility] [address] [id number] [place] [address] Jan, [facility] [place] [facility] [address] [facility] [id number], [place] [address] Jan, [facility] [address] [facility] [id number], [place] [address] Jan, [facility] [address] [facility] [id number], [place] [address] Dec, [facility] [id number] [address] [address] Dec, [facility] [address] [facility] [id number] [address] Sep, [facility] [id number], [place] [address] Sep, [facility] [address] [id number], [place] [address] Aug, [facility] [id number], [place] [address] Aug, [facility] [address] [id number], [place] [address] Aug, [facility] [id number], [place] [address] Aug, [facility] [id number], [place] [address] Aug, [facility] [id number], [place] [address] May, [facility] [address] [id number] [address] [address] Jan, [facility] [id number], [place] [address] Jan, [facility] [id number] [address] [address] Dec, IMMUNIZATIONS No Known Immunizations SOCIAL HISTORY Never Assessed REASON FOR VISIT Controlled Med Refill 07/09/18 PLAN OF CARE VITAL SIGNS MEDICATIONS Medication Instructions Dosage Frequency Start Date End Date Duration Status Oxycodone HCl 10 mg Orally 4 times a day 1 tablet as needed 6h Jun, 28 days Active Ambien 10 mg Orally [...]
--- OUTSIDE RECORDS SUMMARY | 2018-10-18 19:35 | XMS REPORT ---
Author Author FLORENCIA HINOJOSA Organization [facility] Address [address] [place] [address] Care Team Providers Care Call Or Contact Centre Operator Name Role Phone FLORENCIA HINOJOSA Unavailable PROBLEMS Type Condition ICD9-CM Code [id number] Code Onset Dates Condition Status SNOMED Code Problem Arthritis M19.90 Active 2957977 Problem Chronic fatigue R53.82 Active 80495287 Problem Intractable migraine without aura and without status migrainosus G43.019 Active 154820930 Problem Memory loss R41.3 Active 95839941 Problem Other chronic pain G89.29 Active 87543144 Problem Mental status change resolved Z86.59 Active 990916992 ALLERGIES No Information ENCOUNTERS Encounter Location Date Diagnosis [facility] [id number] [place] [address] 62430- 1703 Jun, Intractable migraine without aura and without status migrainosus G43.019 ; Memory loss R41.3 and Tremors of nervous system R25.1 [facility] [id number] [place] [address] 49864- 8156 Jun, [facility] [id number] [place] [address] 87116- 6509 Jun, Intractable migraine without aura and without status migrainosus G43.019 [facility] [id number] [place] [address] 96437- 1187 May, Intractable migraine without aura and without status migrainosus G43.019 [facility] [id number] [place] [address] 40751- 1751 May, 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 [facility] [facility] [id number] [place] [address] 41126- 7580 May, 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 [facility] [facility] [id number] [place] [address] 30884 2546 May, 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 [facility] [id number] [place] [address] 24015 2546 May, Pain in finger of left hand M79.645 [facility] [id number] [place] [address] 97077 2546 Apr, Intractable migraine without aura and without status migrainosus G43.019 [facility] [id number] [place] [address] 94718 2546 Apr, Chronic fatigue R53.82 and Dizziness R42 [facility] [address] [address] 2546 March, [facility] [address] 54624- 1136 March, Intractable migraine without aura and without status migrainosus G43.019 [facility] [id number] [place] [address] 88903 2546 March, [facility] [id number] [place] [address] 86152- 0186 March, [facility] [id number] [place] [address] 02927 2546 Feb, Intractable migraine without aura and without status migrainosus G43.019 [facility] [id number] [place] [address] 57116 2546 Feb, Memory loss R41.3 and 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 [facility] [id number] [place] [address] 76974 2546 Feb, Intractable migraine without aura and without status migrainosus G43.019 [facility] [id number] [place] [address] 52481 2546 Jan, Intractable migraine without aura and without status migrainosus G43.019 [facility] [id number] [place] [address] 88504- 8808 Dec, [facility] [id number] [place] [address] 97076- 1970 Dec, Intractable migraine without aura and without status migrainosus G43.019 [facility] [id number] [place] [address] 41123- 9522 Nov, [facility] [id number] [place] [address] 04808- 5783 Nov, Chronic fatigue R53.82 and Family history of thyroid disease Z83.49 [facility] [facility] [id number] [place] [address] 87896- 5947 Nov, Arthritis M19.90 ; Chronic fatigue R53.82 ; Family history of thyroid disease Z83.49 ; Grade IV hemorrhoids K64.3 and Other chronic pain G89.29 [facility] [id number] [place] [address] 86810- 2804 Nov, Intractable migraine without aura and without status migrainosus G43.019 [facility] [id number] [place] [address] 05791- 6981 Oct, [facility] [id number] [place] [address] 17018- 8200 Oct, Intractable migraine without aura and without status migrainosus G43.019 [facility] [id number] [place] [address] 70078- 7326 Oct, [facility] [id number] [place] [address] 32520- 3586 Oct, [facility] [id number] [place] [address] 73999- 5410 Sep, Tremors of nervous system R25.1 [facility] [id number] [place] [address] 78440- 2493 Sep, [facility] [facility] [address] [place] [address]- 9947 Sep, Intractable migraine without aura and without status migrainosus G43.019 [facility] [id number] [place] [address] 66210- 3866 Sep, [facility] [id number] [place] [address] 89074- 7646 Sep, [facility] [id number] [place] [address] 90328- 0407 Sep, Acute medial meniscus tear of right knee, initial encounter S83.241A and Acute lateral meniscus tear of left knee, initial encounter S83.282A [facility] [id number] [place] [address] 52423- 2837 Aug, Intractable migraine without aura and without status migrainosus G43.019 [facility] [id number] [place] [address] 38247- 0167 Aug, [facility] [id number] [place] [address] 52950- 6785 Aug, [facility] [id number] [place] [address] 20404- 7250 Jul, [facility] [id number] [place] [address] 33714- 1792 Jul, [facility] [id number] [place] [address] 26438- 9591 Jul, Intractable migraine without aura and without status migrainosus G43.019 ; Memory loss R41.3 ; Mental status change resolved Z86.59 ; Other chronic pain G89.29 and Pain in right knee M25.561 [facility] [id number] [place] [address] 86210- 6870 Jul, [facility] [id number] [place] [address] 24074- 3923 Jun, Tremors of nervous system R25.1 and Pelvic pain R10.2 [facility] [address] [address]- 0042 Jun, [facility] [id number] [place] [address] 42037- 6332 Jun, [facility] [id number] [place] [address] 15029- 2175 Jun, [facility] [id number] [place] [address] 73041- 7701 May, [facility] [id number] [place] [address] 24368- 8839 May, [facility] [id number] [place] [address] 30501- 5755 May, Kidney pain N23 [facility] [id number] [place] [address] 03044- 2883 May, Pelvic pain R10.2 [facility] [id number] [place] [address] 90606 -2300 May, Wasp sting, accidental or unintentional, initial encounter T63.461A and Allergic contact dermatitis due to other agents L23.89 [facility] [id number] [place] [address] 54699- 5378 May, [facility] [id number] [place] [address] 37464- 4057 May, Pelvic pain R10.2 [facility] [id number] [place] [address] 89725- 1757 May, [facility] [id number] [place] [address] 68929- 4610 Apr, Tremors of nervous system R25.1 ; Blood in stool, gabby K92.1 ; 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 ; Memory loss R41.3 and Intractable migraine without aura and without status migrainosus G43.019 [facility] [id number] [place] [address] 13482- 6474 Apr, Blood in stool, gabby K92.1 [facility] [id number] [place] [address] 06971- 4271 Apr, Tremors of nervous system R25.1 ; 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 ; Memory loss R41.3 and Intractable migraine without aura and without status migrainosus G43.019 [facility] [facility] [address] 61193- 8822 Apr, [place] [facility] [address] 35419- 9061 Apr, Tremor R25.1 [facility] [facility] [address] 72756- 2146 March, [facility] [facility] [address] 11870- 2948 March, Cyst of right ovary N83.201 [facility] [facility] [address] 42621- 7026 March, Blood in stool, gabby K92.1 and Other fatigue R53.83 [facility] [facility] [address] 90274- 0942 March, Cyst of right ovary N83.201 [facility] [id number] [place] [address] 18081- 4256 Feb, [facility] [facility] [id number] [place] [address] 11156- 5156 Feb, [place] [facility] [id number] [place] [address] 86677- 6258 Feb, Cyst of right ovary N83.201 and Right lower quadrant abdominal pain R10.31 [facility] [id number] [place] [address] 90872- 3648 Jan, Pelvic pain R10.2 [facility] [facility] [address] 50662- 2156 Jan, [facility] [id number] [place] [address] 07679- 1310 Jan, [facility] [address] 98500- 7210 Jan, Left groin pain R10.30 [facility] [address] 35228- 6497 Dec, [facility] [address] 76785- 8658 Dec, Pelvic pain R10.2 and Lumbosacral neuritis M54.17 [facility] [address] 97925- 6007 Dec, [facility] [address] 38082- 7839 Dec, Lymph node enlargement R59.9 [facility] [address] 10882- 9148 Nov, Lymph node enlargement R59.9 [facility] [id number] [place] [address] 74533- 8441 Nov, [facility] [id number] [place] [address] 84489- 5747 Nov, Left groin pain R10.30 [facility] [id number] [place] [address] 99165- 6137 Nov, Varicose vein of leg I83.90 ; Essential hypertension I10 and Short lasting unilateral neuralgiform headache with conjunctival injection and tearing (SUNCT), not intractable G44.059 [facility] [id number] [place] [address] 85546 -6866 Jul, Post concussion syndrome F07.81 [facility] [id number] [place] [address] 91857- 8290 Jul, [facility] [id number] [place] [address] 85826- 7996 Oct, [facility] [address] [address]- 3074 Oct, [facility] [address] [address]- 3496 Aug, [facility] [address] [address]- 4666 Aug, Obesity 278.00 [facility] [id number] [place] [address] 55409- 1940 Aug, [facility] [id number] [place] [address] 89333- 5717 Jul, Obesity 278.00 and Cervical spondylosis without myelopathy 721.0 [facility] [address] [address]- 0059 March, [facility] [address] [address]- 8660 Feb, Cervical spondylosis 721.0 [facility] [address] [address]- 2592 Feb, [facility] [address] [address]- 1029 Feb, [facility] [id number] [address]- 4785 Jan, [facility] [id number] [address]- 7278 Jan, [facility] [address] [address]- 4710 Jan, [facility] [id number] [address]- 7806 Jan, [facility] [id number] [address] 2546 Jan, [facility] [id number] [place] [address]- 5634 Jan, [facility] [place] [facility] [address] [id number] [place] [address]- 1588 Dec, [facility] [place] [facility] [address] [id number] [place] [address]- 7576 Dec, 2014 [facility] [place] [facility] [address] [id number] [place] [address]- 8156 Dec, [facility] [place] [facility] [address] [id number] [place] [address]- 7090 Dec, [facility] [place] [facility] [address] [id number] [place] [address]- 8158 Nov, [facility] [place] [facility] [address] [id number] [place] [address]- 2643 Nov, [facility] [place] [facility] [address] [id number] [place] [address]- 7214 Nov, [facility] [place] [facility] [address] [id number] [place] [address]- 8621 Nov, [facility] [place] [facility] [address] [id number] [place] [address]- 1238 Nov, [facility] [place] [facility] [address] [id number] [place] [address]- 8078 Nov, [facility] [place] [facility] [address] [id number] [place] [address]- 7972 Nov, [facility] [place] [facility] [address] [id number] [place] [address]- 7650 Nov, [facility] [place] [facility] [address] [id number] [place] [address]- 4110 Oct, [facility] [place] [facility] [address] [id number] [place] [address]- 2076 Oct, [facility] [place] [facility] [address] [id number] [place] [address]- 7197 Sep, [facility] [place] [facility] [address] [id number] [place] [address]- 6117 Sep, [facility] [place] [facility] [address] [id number] [place] [address]- 9347 Sep, [facility] [place] [facility] [address] [id number] [place] [address]- 2725 Sep, [facility] [place] [facility] [address] [id number] [place] [address]- 9693 Jul, [facility] [place] [facility] [address] [id number] [place] [address]- 8401 Jul, [facility] [place] [facility] [address] [id number] [place] [address]- 3875 Jul, [facility] [place] [facility] [address] [id number] [place] [address]- 7625 Jul, [facility] [place] [facility] [address] [id number] [place] [address]- 4095 Jul, [facility] [place] [facility] [address] [id number] [place] [address]- 7324 Jul, [facility] [place] [facility] [address] [id number] [place] [address]- 7710 Jul, [facility] [place] [facility] [address] [id number] [place] [address]- 3220 Jul, [facility] [place] [facility] [address] [id number] [address]- 1253 Jul, [facility] [place] [facility] [address] [id number] [place] [address]- 9434 Jul, [facility] [place] [facility] [address] [id number] [place] [address]- 3240 Jun, [facility] [place] [facility] [address] [id number] [place] [address]- 1145 Jun, [facility] [place] [facility] [address] [id number] [place] [address]- 2537 Jun, [facility] [place] [facility] [address] [id number] [place] [address]- 2862 Jun, [facility] [place] [facility] [address] [id number] [place] [address]- 7622 Jun, [facility] [place] [facility] [address] [id number] [place] [address]- 3010 Jun, [facility] [place] [facility] [address] [id number] [place] [address]- 6805 May, [facility] [place] [facility] [address] [id number] [place] [address]- 3555 May, [facility] [place] [facility] [address] [id number] [place] [address]- 2113 May, [facility] [place] [facility] [address] [id number] [place] [address]- 0239 May, [facility] [place] [facility] [address] [id number] [place] [address]- 8745 May, [facility] [place] [facility] [address] [id number] [place] [address]- 2435 May, [facility] [place] [facility] [address] [id number] [place] [address]- 3830 Apr, [facility] [place] [facility] [address] [id number] [place] [address]- 8773 Apr, [facility] [place] [facility] [address] [id number] [place] [address]- 4473 Apr, [facility] [place] [facility] [address] [id number] [place] [address]- 5000 Apr, [facility] [place] [facility] [address] [id number] [place] [address]- 0302 Apr, [facility] [place] [facility] [address] [id number] [place] [address]- 4930 Apr, [facility] [place] [facility] [address] [id number] [place] [address]- 4541 Apr, [facility] [place] [facility] [address] [id number] [place] [address]- 0559 Apr, [facility] [place] [facility] [address] [id number] [place] [address]- 0617 Apr, [facility] [place] [facility] [address] [id number] [place] [address]- 6199 Apr, [facility] [place] [facility] [address] [id number] [place] [address]- 8907 Apr, [facility] [place] [facility] [address] [id number] [place] [address]- 4894 Apr, [facility] [place] [facility] [address] [id number] [place] [address]- 0198 Apr, [facility] [place] [facility] [address] [id number] [place] [address]- 3108 March, [facility] [place] [facility] [address] [id number] [place] [address]- 4118 March, [facility] [place] [facility] [address] [id number] [place] [address]- 7056 March, [facility] [place] [facility] [address] [id number] [place] [address]- 9783 March, [facility] [place] [facility] [address] [id number] [place] [address]- 9664 March, [facility] [place] [facility] [address] [id number] [place] [address]- 5177 March, [facility] [place] [facility] [address] [id number] [place] [address]- 4928 Feb, [facility] [place] [facility] [address] [id number] [place] [address]- 9191 Feb, [facility] [place] [facility] [address] [id number] [place] [address]- 5469 Feb, [facility] [place] [facility] [address] [id number] [place] [address]- 4401 Feb, [facility] [place] [facility] [address] [id number] [place] [address]- 4570 Feb, [facility] [place] [facility] [address] [id number] [place] [address]- 7832 Feb, [facility] [place] [facility] [address] [id number] [place] [address]- 5797 Feb, [facility] [place] [facility] [address] [id number] [place] [address]- 8400 Feb, [facility] [place] [facility] [address] [id number] [place] [address]- 7464 Feb, [facility] [place] [facility] [address] [id number] [place] [address]- 5193 Feb, [facility] [place] [facility] [address] [id number] [place] [address]- 2901 Jan, [facility] [place] [facility] [address] [id number] [place] [address]- 4081 Jan, [facility] [place] [facility] [address] [id number] [place] [address] Jan, [facility] [place] [facility] [address] [id number] [place] [address] Jan, [facility] [place] [facility] [address] [id number] [place] [address] Dec, [facility] [place] [facility] [address] [id number] [place] [address] Dec, [facility] [place] [facility] [address] [id number] [place] [address] Sep, [facility] [place] [facility] [address] [id number] [place] [address] Sep, [facility] [place] [facility] [address] [id number] [address] Aug, [facility] [id number] [address] Aug, [facility] [id number] [address] Aug, [facility] [id number] [address] Aug, [facility] [id number] [address] Aug, [facility] [id number] [address] May, [facility] [id number] [place] [address] Jan, [facility] [id number] [address] Jan, [facility] [address] [id number], [place] [address] Dec, IMMUNIZATIONS No Known Immunizations SOCIAL HISTORY Never Assessed REASON FOR VISIT MRI correction PLAN OF CARE VITAL SIGNS MEDICATIONS Unknown [...]
--- OUTSIDE RECORDS SUMMARY | 2018-10-18 19:35 | XMS REPORT ---
Author Author FLORENCIA HINOJOSA Organization [facility] Address [address] [place] [address] Care Team Providers Care Boat Dispatcher Name Role Phone FLORENCIA HINOJOSA Unavailable PROBLEMS Type Condition ICD9-CM Code ULE84-PY Code Onset Dates Condition Status SNOMED Code Problem Arthritis M19.90 Active 5508607 Problem Chronic fatigue R53.82 Active 52817576 Problem Intractable migraine without aura and without status migrainosus G43.019 Active 975019769 Problem Memory loss R41.3 Active 67021935 Problem Other chronic pain G89.29 Active 12856103 Problem Mental status change resolved Z86.59 Active [id number] ALLERGIES No Information ENCOUNTERS Encounter Location Date Diagnosis [place] [id number] [place] [address] 46752- 0271 Jul, Memory loss R41.3 and Tremors of nervous system R25.1 [place] [address] 43115- 0079 Jun, Intractable migraine without aura and without status migrainosus G43.019 ; Memory loss R41.3 and Tremors of nervous system R25.1 [place] [id number] [place] [address] 66405- 7682 Jun, [place] [id number] [place] [address] 82711- 9332 Jun, Intractable migraine without aura and without status migrainosus G43.019 [place] [address] 01520- 2029 May, Intractable migraine without aura and without status migrainosus G43.019 [place] [id number] [place] [address] 84167- 9874 May, 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 [facility] [id number] [place] [address] 52442- 1991 May, 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 [facility] [id number] [place] [address] 47597- 0206 May, 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 [facility] [id number] [place] [address] 43064 -3526 May, Pain in finger of left hand M79.645 [facility] [id number] [place] [address] 57736- 5216 Apr, Intractable migraine without aura and without status migrainosus G43.019 [facility] [id number] [place] [address] 07411- 9976 Apr, Chronic fatigue R53.82 and Dizziness R42 [facility] [id number] [place] [address] 22924- 7884 March, [facility] [id number] [place] [address] 74215- 1892 March, Intractable migraine without aura and without status migrainosus G43.019 [facility] [id number] [place] [address] 95262- 6114 March, [facility] [id number] [place] [address] 69866- 6991 March, [facility] [id number] [place] [address] 36865- 4621 Feb, Intractable migraine without aura and without status migrainosus G43.019 [facility] [id number] [place] [address] 14209- 5301 Feb, Memory loss R41.3 and 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 [facility] [id number] [place] [address] 43765- 5444 Feb, Intractable migraine without aura and without status migrainosus G43.019 [facility] [address], [place] [address]- 2055 Jan, Intractable migraine without aura and without status migrainosus G43.019 [facility] [id number] [place] [address] 74684- 9586 Dec, [facility] [id number] [place] [address] 94601- 0706 Dec, Intractable migraine without aura and without status migrainosus G43.019 [facility] [id number] [place] [address] 54245- 4856 Nov, [place] [id number] [place] [address] 76409- 5167 Nov, Chronic fatigue R53.82 and Family history of thyroid disease Z83.49 [place] [id number] [place] [address] 40682- 3146 Nov, Arthritis M19.90 ; Chronic fatigue R53.82 ; Family history of thyroid disease Z83.49 ; Grade IV hemorrhoids K64.3 and Other chronic pain G89.29 [place] [id number] [place] [address] 76299- 1773 Nov, Intractable migraine without aura and without status migrainosus G43.019 [facility] [address] [address]- 2856 Oct, [facility] [id number] [place] [address] 84807- 8965 Oct, Intractable migraine without aura and without status migrainosus G43.019 [facility] [id number] [place] [address] 17003- 3816 Oct, [facility] [id number] [place] [address] 289350- 3876 Oct, [facility] [address] [place] [address] 05094- 6577 Sep, Tremors of nervous system R25.1 [facility] [address] [place] [address]- 1756 Sep, [facility] [id number] [place] [address] 76414- 1586 Sep, Intractable migraine without aura and without status migrainosus G43.019 [facility] [address], [place] [address] 2546 Sep, [facility] [address] [place] [address] 2546 Sep, [facility] [address] [place] [address] 87341- 3186 Sep, Acute medial meniscus tear of right knee, initial encounter S83.241A and Acute lateral meniscus tear of left knee, initial encounter S83.282A [facility] [address] [place] [address] 06415- 6406 Aug, Intractable migraine without aura and without status migrainosus G43.019 [facility] [address], [place] [address] 2546 Aug, [facility] [address] [place] [address] 73061- 2546 Aug, [facility] [address], [place] [address]- 2546 Jul, [facility] [address] [place] [address] 08204 2546 Jul, [facility] [address], [place] [address]- 2546 Jul, Intractable migraine without aura and without status migrainosus G43.019 ; Memory loss R41.3 ; Mental status change resolved Z86.59 ; Other chronic pain G89.29 and Pain in right knee M25.561 [facility] [address], [place] [address]- 2546 18 Jul, 2017 [facility] [address], [place] [address]- 9861 Jun, Tremors of nervous system R25.1 and Pelvic pain R10.2 [facility] [id number] [place] [address] 77227- 4869 Jun, [facility] [id number] [place] [address] 13902- 7704 Jun, [facility] [id number] [place] [address] 73577- 0831 Jun, [facility] [id number] [place] [address] 09504- 3863 May, [facility] [id number] [place] [address] 29828- 2022 May, [facility] [id number] [place] [address] 76897- 4167 May, Kidney pain N23 [facility] [id number] [place] [address] 86059- 8784 May, Pelvic pain R10.2 [facility] [id number] [place] [address] 42159 -9448 May, Wasp sting, accidental or unintentional, initial encounter T63.461A and Allergic contact dermatitis due to other agents L23.89 [facility] [id number] [place] [address] 31407- 9376 May, [facility] [id number] [place] [address] 34275- 5459 May, Pelvic pain R10.2 [facility] [id number] [place] [address] 78543- 0641 May, [facility] [id number] [place] [address] 20006- 5536 Apr, Tremors of nervous system R25.1 ; Blood in stool, gabby K92.1 ; 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 ; Memory loss R41.3 and Intractable migraine without aura and without status migrainosus G43.019 [facility] [address] [facility] [id number] [place] [address] 06750 2546 Apr, Blood in stool, gabby K92.1 [facility] [id number] [place] [address] 08783 2546 Apr, Tremors of nervous system R25.1 ; 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 ; Memory loss R41.3 and Intractable migraine without aura and without status migrainosus G43.019 [facility] [id number] [place] [address] 63277 2546 Apr, [facility] [id number] [place] [address] 05936 254 Apr, Tremor R25.1 [facility] [id number] [place] [address] 38728- 4536 March, [facility] [id number] [place] [address] 55458- 5258 March, Cyst of right ovary N83.201 [facility] [id number] [place] [address] 13601 2546 March, Blood in stool, gabby K92.1 and Other fatigue R53.83 [facility] [id number] [place] [address] 27295 2546 March, Cyst of right ovary N83.201 [facility] [id number] [place] [address] 59067 2546 Feb, [facility] [id number] [place] [address] 53523 2546 Feb, [facility] [id number] [place] [address] 29087- 254 Feb, Cyst of right ovary N83.201 and Right lower quadrant abdominal pain R10.31 [facility] [address] 18484- 2830 Jan, Pelvic pain R10.2 [facility] [id number] [place] [address] 78400- 5411 Jan, [facility] [id number] [place] [address] 42993- 6020 Jan, [facility] [id number] [place] [address] 42978- 8081 Jan, Left groin pain R10.30 [facility] [id number] [place] [address] 16389- 5195 Dec, [facility] [address] 54411- 3676 Dec, Pelvic pain R10.2 and Lumbosacral neuritis M54.17 [facility] [id number] [place] [address] 57643- 2816 Dec, [facility] [id number] [place] [address] 82701- 9790 Dec, Lymph node enlargement R59.9 [facility] [id number] [place] [address] 85256- 8041 Nov, Lymph node enlargement R59.9 [facility] [id number] [place] [address] 09015- 9162 Nov, [facility] [id number] [place] [address] 94459- 9617 Nov, Left groin pain R10.30 [facility] [id number] [place] [address] 61605- 3592 Nov, Varicose vein of leg I83.90 ; Essential hypertension I10 and Short lasting unilateral neuralgiform headache with conjunctival injection and tearing (SUNCT), not intractable G44.059 [facility] [address] [place] [address] 65713 -0634 07 Jul, 2016 Post concussion syndrome F07.81 [facility] [id number] [address]- 7835 07 Jul, 2016 [facility] [address] [address]- 1506 Oct, [facility] [address], [place] [address]- 2426 Oct, [facility] [id number] [place] [address] 15410- 2402 Aug, [facility] [address], [place] [address]- 9130 Aug, Obesity 278.00 [facility] [address] [place] [address] 66658- 9456 Aug, [facility] [address], [place] [address]- 1808 Jul, Obesity 278.00 and Cervical spondylosis without myelopathy 721.0 [facility] [address], [place] [address]- 5267 March, [facility] [address] [place] [address]- 1967 30 Feb, 2015 Cervical spondylosis 721.0 [facility] [address] 4697 14 Feb, 2015 [facility] [address], [place] [address]- 5311 Feb, [facility] [address], [place] [address]- 0840 Jan, [facility] [address], [place] [address]- 4216 Jan, [facility] [address] [place] [address]- 9606 Jan, [facility] [address], [place] [address]- 5187 Jan, [facility] [place] [facility] [address] [id number] [place] [address]- 6914 Jan, [facility] [place] [facility] [address] [id number] [place] [address]- 9236 Jan, [facility] [place] [facility] [address] [id number] [place] [address]- 2607 Dec, [facility] [place] [facility] [address] [id number] [place] [address]- 4473 Dec, [facility] [place] [facility] [address] [id number] [place] [address]- 2554 Dec, [facility] [place] [facility] [address] [id number] [place] [address]- 7763 Dec, [facility] [place] [facility] [address] [id number] [place] [address]- 0688 Nov, [facility] [place] [facility] [address] [id number] [place] [address]- 3839 Nov, [facility] [place] [facility] [address] [id number] [place] [address]- 4072 Nov, [facility] [place] [facility] [address] [id number] [place] [address]- 3499 Nov, [facility] [place] [facility] [address] [id number] [place] [address]- 0581 Nov, [facility] [place] [facility] [address] [id number], [place] [address]- 4009 Nov, [facility] [place] [facility] [address] [id number] [place] [address]- 1461 Nov, [facility] [place] [facility] [address] [id number] [place] [address]- 4388 Nov, [facility] [place] [facility] [address] [id number] [place] [address]- 7555 Oct, [facility] [place] [facility] [address] [id number] [place] [address]- 9515 Oct, [facility] [place] [facility] [address] [id number] [place] [address]- 1427 Sep, [facility] [place] [facility] [address] [id number] [place] [address]- 1420 Sep, [facility] [place] [facility] [address] [id number] [place] [address]- 9738 Sep, [facility] [place] [facility] [address] [id number] [place] [address]- 1992 Sep, [facility] [place] [facility] [address] [id number] [place] [address]- 0876 Jul, [facility] [place] [facility] [address] [id number] [place] [address]- 5290 Jul, [facility] [place] [facility] [address] [id number] [place] [address]- 3311 Jul, [facility] [place] [facility] [address] [id number] [place] [address]- 8392 Jul, [facility] [place] [facility] [address] [id number] [place] [address]- 2548 Jul, [facility] [place] [facility] [address] [id number] [place] [address]- 2548 Jul, [facility] [place] [facility] [address] [id number] [place] [address] 2543 Jul, 2013 [facility] [place] [facility] [address] [id number] [place] [address]- 2549 Jul, [facility] [place] [facility] [address] [id number] [place] [address]- 2540 Jul, [facility] [place] [facility] [address] [id number] [place] [address]- 254 Jul, [facility] [place] [facility] [address] [id number] [place] [address]- 3165 Jun, [facility] [place] [facility] [address] [id number] [place] [address]- 5332 Jun, [facility] [place] [facility] [address] [id number] [place] [address]- 5774 Jun, [facility] [place] [facility] [address] [id number] [place] [address]- 8693 Jun, [facility] [place] [facility] [address] [id number] [place] [address]- 2556 Jun, [facility] [place] [facility] [address] [id number] [place] [address]- 0260 Jun, [facility] [place] [facility] [address] [id number] [place] [address]- 1758 May, [facility] [place] [facility] [address] [id number] [place] [address]- 3992 May, [facility] [place] [facility] [address] [id number] [place] [address]- 9719 May, [facility] [place] [facility] [address] [id number] [place] [address]- 6672 May, [facility] [place] [facility] [address] [id number] [place] [address]- 1511 May, [facility] [place] [facility] [address] [id number] [place] [address]- 2293 May, [facility] [place] [facility] [address] [id number] [place] [address]- 4684 Apr, [facility] [place] [facility] [address] [id number] [place] [address]- 9676 Apr, [facility] [place] [facility] [address] [id number] [place] [address]- 3644 Apr, [facility] [place] [facility] [address] [id number] [place] [address]- 0774 Apr, [facility] [place] [facility] [address] [id number] [place] [address]- 1376 Apr, [facility] [place] [facility] [address] [id number] [place] [address]- 5790 Apr, [facility] [place] [facility] [address] [id number] [place] [address]- 3914 Apr, [facility] [place] [facility] [address] [id number] [place] [address]- 1771 Apr, [facility] [place] [facility] [address] [id number] [place] [address]- 8734 Apr, [facility] [place] [facility] [address] [id number] [place] [address]- 7042 Apr, [facility] [place] [facility] [address] [id number] [place] [address]- 8926 Apr, [facility] [place] [facility] [address] [id number] [place] [address]- 8699 Apr, [facility] [place] [facility] [address] [id number] [place] [address]- 5704 Apr, [facility] [place] [facility] [address] [id number] [place] [address]- 7863 March, [facility] [place] [facility] [address] [id number] [place] [address]- 0503 March, [facility] [place] [facility] [address] [id number] [place] [address]- 9051 March, [facility] [place] [facility] [address] [id number] [place] [address]- 8671 March, [facility] [place] [facility] [address] [id number] [place] [address]- 0130 March, [facility] [place] [facility] [address] [id number] [place] [address]- 3640 March, [facility] [place] [facility] [address] [id number] [place] [address]- 1593 Feb, [facility] [place] [facility] [address] [id number] [place] [address]- 5114 30 Feb, 2014 [facility] [place] [facility] [address] [id number] [place] [address]- 4050 Feb, [facility] [place] [facility] [address] [id number] [place] [address]- 2290 Feb, [facility] [place] [facility] [address] [id number] [place] [address]- 0112 Feb, [facility] [place] [facility] [address] [id number] [place] [address]- 6676 18 Feb, 2014 [facility] [place] [facility] [address] [id number] [place] [address]- 7013 Feb, [facility] [place] [facility] [address] [id number] [place] [address]- 1920 15 Feb, 2014 [facility] [place] [facility] [address] [id number] [place] [address]- 1807 Feb, [facility] [place] [facility] [address] [id number] [place] [address]- 4424 Feb, [facility] [place] [facility] [address] [id number] [place] [address]- 2465 [address], [address] [facility] [place] [facility] [address] [id number] [place] [address]- 2922 Jan, [facility] [place] [facility] [address] [id number] [place] [address]- 7406 Jan, [facility] [place] [facility] [address] [id number] [place] [address]- 4825 Jan, [facility] [place] [facility] [address] [id number] [place] [address], [address] [facility] [place] [facility] [address] [id number] [place] 5663 24 Dec, 2013 [facility] [place] [facility] [address] [id number] [place] [address]- 7751 Sep, [facility] [id number] [address]- 6928 Sep, [facility] [address] [facility] [id number], [place] [address]- 2056 Aug, [facility] [address], [place] [address]- 6956 Aug, [facility] [address], [place] [address]- 5526 Aug, [facility] [address], [place] [address]- 0784 Aug, [facility] [address], [place] [address]- 3056 Aug, [facility] [address] [place] [address]- 5636 May, [facility] [address], [place] [address]- 9376 Jan, [facility] [address], [place] [address]- 0490 Jan, [facility] [address] [place] [address]- 1100 Dec, IMMUNIZATIONS No Known Immunizations SOCIAL HISTORY [...]
--- OUTSIDE RECORDS SUMMARY | 2018-10-18 19:36 | XMS REPORT ---
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 Name Role Phone KEITH WALTER Unavailable PROBLEMS Type Condition ICD9-CM Code DZZ59-IW Code Onset Dates Condition Status SNOMED Code Problem Arthritis M19.90 Active 5973832 Problem Chronic fatigue R53.82 Active 26450018 Problem Intractable migraine without aura and without status migrainosus G43.019 Active 291266070 Problem Memory loss R41.3 Active 30874899 Problem Other chronic pain G89.29 Active 41656441 Problem Mental status change resolved Z86.59 Active 993712276 ALLERGIES Substance Reaction Event Type Date Status SulfADIAZINE Unknown Drug Allergy May, Active Prednisone nausea and vomiting Drug Allergy May, Active Morphine Sulfate nausea and vomiting Drug Allergy May, Active ENCOUNTERS Encounter Location Date Diagnosis [place] [address] [address]- [address] Jun, Intractable migraine without aura and without status migrainosus G43.019 ; Memory loss R41.3 and Tremors of nervous system R25.1 [place] [address] [place] [id number] [place] [address] 82952- 0710 Jun, [place] [address] [place] [id number] [place] [address] 28046- 5812 Jun, Intractable migraine without aura and without status migrainosus G43.019 [place] [address] [address]- 7525 May, Intractable migraine without aura and without status migrainosus G43.019 [place] [address] [id number] [place] [address] 01797- 6507 May, 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 [facility] [id number] [place] [address] 96633- 1756 May, 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 [facility] [address] [place] [id number] [place] [address] 42161- 9179 May, 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 [facility] [address] [id number] [place] [address] 80537 -8954 May, Pain in finger of left hand M79.645 [facility] [address] [id number] [place] [address] 20466- 5859 Apr, Intractable migraine without aura and without status migrainosus G43.019 [facility] [id number] [place] [address] 85656- 2299 Apr, Chronic fatigue R53.82 and Dizziness R42 [facility] [address] [place] [id number] [place] [address] 46968- 5253 March, [facility] [id number] [place] [address] 96910- 4957 March, Intractable migraine without aura and without status migrainosus G43.019 [facility] [id number] [place] [address] 97751- 8682 March, [facility] [address] [id number] [place] [address] 45442- 6610 March, [facility] [address] [id number] [place] [address] 76073- 7708 Feb, Intractable migraine without aura and without status migrainosus G43.019 [facility] [address] [place] [id number] [place] [address] 45440- 4415 Feb, Memory loss R41.3 and 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 [facility] [id number] [place] [address] 70339- 4045 Feb, Intractable migraine without aura and without status migrainosus G43.019 [facility] [address] [address]- 6049 Jan, Intractable migraine without aura and without status migrainosus G43.019 [facility] [address] [address] Dec, [facility] [address] [address]- 1506 Dec, Intractable migraine without aura and without status migrainosus G43.019 [facility] [address] [address]- 9796 Nov, [facility] [address] [place] [id number] [place] [address] 79663- 8030 Nov, Chronic fatigue R53.82 and Family history of thyroid disease Z83.49 [facility] [id number] [place] [address] 49972- 6076 Nov, Arthritis M19.90 ; Chronic fatigue R53.82 ; Family history of thyroid disease Z83.49 ; Grade IV hemorrhoids K64.3 and Other chronic pain G89.29 [facility] [id number] [place] [address] 32105- 9758 Nov, Intractable migraine without aura and without status migrainosus G43.019 [facility] [address] [address] 1986 Oct, [facility] [address] [place] [id number] [place] [address] 91260- 2166 Oct, Intractable migraine without aura and without status migrainosus G43.019 [facility] [address] [address]- 1516 Oct, [facility] [address] [place] [id number] [place] [address] 111735- 6306 Oct, [facility] [address] [address]- 5477 29 Nov, 2017 Tremors of nervous system R25.1 [facility] [address] [address]- 7696 Sep, [facility] [id number] [place] [address] 52496 2546 Sep, Intractable migraine without aura and without status migrainosus G43.019 [facility] [address] [address] 2546 Sep, [facility] [id number] [place] [address] 29182 2546 Sep, [facility] [id number] [place] [address] 97489- 2546 Sep, Acute medial meniscus tear of right knee, initial encounter S83.241A and Acute lateral meniscus tear of left knee, initial encounter S83.282A [facility] [address] [place] [id number] [place] [address] 95800- 8846 Aug, Intractable migraine without aura and without status migrainosus G43.019 [facility] [address] [address] 2546 Aug, [facility] [id number] [place] [address] 72601- 2546 Aug, [facility] [address] [address]- 2546 Jul, [facility] [address] [place] [id number] [place] [address] 00118 2546 Jul, [facility] [id number] [place] [address] 96485- 2546 Jul, Intractable migraine without aura and without status migrainosus G43.019 ; Memory loss R41.3 ; Mental status change resolved Z86.59 ; Other chronic pain G89.29 and Pain in right knee M25.561 [facility] [address] [address]- 2546 18 Jul, 2017 [facility] [id number] [place] [address] 98158- 9646 Jun, Tremors of nervous system R25.1 and Pelvic pain R10.2 [facility] [address] [place] [id number] [place] [address] 69776- 1271 Jun, [facility] [address] [place] [id number] [place] [address] 64839- 5791 Jun, [facility] [address] [place] [id number] [place] [address] 48082- 8823 Jun, [facility] [address] [place] [id number] [place] [address] 13536- 3085 May, [facility] [address] [place] [id number] [place] [address] 31029- 1583 May, [facility] [address] [place] [id number] [place] [address] 72926- 0481 May, Kidney pain N23 [facility] [address] [place] [id number] [place] [address] 43491- 0802 May, Pelvic pain R10.2 [facility] [address] [place] [id number] [place] [address] 99639 -9163 May, Wasp sting, accidental or unintentional, initial encounter T63.461A and Allergic contact dermatitis due to other agents L23.89 [facility] [address] [place] [id number] [place] [address] 03778- 2241 May, [facility] [address] [place] [id number] [place] [address] 03070- 8229 May, Pelvic pain R10.2 [facility] [address] [place] [id number] [place] [address] 45674- 3889 May, [facility] [address] [place] [id number] [place] [address] 77291- 2493 Apr, Tremors of nervous system R25.1 ; Blood in stool, gabby K92.1 ; 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 ; Memory loss R41.3 and Intractable migraine without aura and without status migrainosus G43.019 [facility] [address] [place] [id number] [place] [address] 34583 2546 Apr, Blood in stool, gabby K92.1 [facility] [address] [place] [id number] [place] [address] 03655 2546 Apr, Tremors of nervous system R25.1 ; 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 ; Memory loss R41.3 and Intractable migraine without aura and without status migrainosus G43.019 [facility] [address] [place] [id number] [place] [address] 04468- 5406 Apr, [facility] [address] [place] [id number] [place] [address] 58903- 9946 Apr, Tremor R25.1 [facility] [address] [place] [id number] [place] [address] 42120- 0086 March, [facility] [address] [place] [id number] [place] [address] 47117- 8289 March, Cyst of right ovary N83.201 [facility] [address] [place] [id number] [place] [address] 46598 2541 March, Blood in stool, gabby K92.1 and Other fatigue R53.83 [facility] [address] [place] [id number] [place] [address] 60951 2546 March, Cyst of right ovary N83.201 [facility] [address] [place] [id number] [place] [address] 85039 2546 Feb, [facility] [address] [place] [id number] [place] [address] 89656- 4546 Feb, [facility] [address] [place] [id number] [place] [address] 95815- 254 Feb, Cyst of right ovary N83.201 and Right lower quadrant abdominal pain R10.31 [facility] [address] 02975- 9596 Jan, Pelvic pain R10.2 [facility] [address] [place] [id number] [place] [address] 65216- 9784 Jan, [facility] [address] [place] [id number] [place] [address] 53219- 9831 Jan, [facility] [address] [place] [id number] [place] [address] 27435- 1116 Jan, Left groin pain R10.30 [facility] [address] [place] [id number] [place] [address] 62148- 3919 Dec, [facility] [address] [place] [id number] [place] [address] 49199- 3545 Dec, Pelvic pain R10.2 and Lumbosacral neuritis M54.17 [facility] [address] [place] [id number] [place] [address] 84596- 4648 Dec, [facility] [address] [place] [id number] [place] [address] 92429- 5772 Dec, Lymph node enlargement R59.9 [facility] [address] [place] [id number] [place] [address] 27359- 9525 Nov, Lymph node enlargement R59.9 [facility] [address] [id number] [place] [address] 59434- 2260 Nov, [facility] [address] [place] [id number] [place] [address] 14477- 5684 Nov, Left groin pain R10.30 [facility] [address] [place] [id number] [place] [address] 91566- 7583 Nov, Varicose vein of leg I83.90 ; Essential hypertension I10 and Short lasting unilateral neuralgiform headache with conjunctival injection and tearing (SUNCT), not intractable G44.059 [facility] [id number] [place] [address] 84439 -7906 07 Jul, 2016 Post concussion syndrome F07.81 [facility] [address] [address]- 8300 07 Jul, 2016 [facility] [address] [address]- 3526 Oct, [facility] [address] [address]- 6206 Oct, [facility] [address] [id number] [place] [address] 43053- 1930 Aug, [facility] [address] [address]- 3631 Aug, Obesity 278.00 [facility] [address] [id number] [place] [address] 77227- 7297 Aug, [facility] [address] [address]- 5966 Jul, Obesity 278.00 and Cervical spondylosis without myelopathy 721.0 [facility] [address] [address]- 2957 March, [facility] [address] [place] [id number] [place] [address] 430856- 3153 30 Feb, 2015 Cervical spondylosis 721.0 [facility] [address] [address]- 6190 14 Feb, 2015 [facility] [address] [address]- 6071 Feb, [facility] [address] [address]- 0680 Jan, [facility] [id number] [address]- 8733 Jan, [facility] [address] [place] [address]- 6716 18 Jan, 2015 [facility] [id number] [place] [address] 12651- 4390 Jan, [facility] [place] [facility] [address] [id number] [place] [address]- 1825 Jan, [facility] [place] [facility] [address] [id number] [place] [address]- 9096 Jan, [facility] [place] [facility] [address] [id number] [place] [address]- 6948 Dec, [facility] [place] [facility] [address] [id number] [place] [address]- 7993 Dec, [facility] [place] [facility] [address] [id number] [place] [address]- 5076 Dec, [facility] [place] [facility] [address] [id number] [place] [address]- 9768 Dec, [facility] [place] [facility] [address] [id number] [place] [address]- 8191 Nov, [facility] [place] [facility] [address] [id number] [place] [address]- 8651 Nov, [facility] [place] [facility] [address] [id number] [place] [address]- 3244 Nov, [facility] [place] [facility] [address] [id number] [place] [address]- 6554 Nov, [facility] [place] [facility] [address] [id number] [place] [address]- 8206 Nov, [facility] [place] [facility] [address] [id number] [address]- 8556 Nov, [facility] [place] [facility] [address] [id number] [place] [address]- 7500 Nov, [facility] [place] [facility] [address] [id number] [place] [address]- 9126 Nov, [facility] [place] [facility] [address] [id number] [place] [address]- 2962 Oct, [facility] [place] [facility] [address] [id number] [place] [address]- 5164 Oct, [facility] [place] [facility] [address] [id number] [place] [address]- 2515 Sep, [facility] [place] [facility] [address] [id number] [place] [address]- 2718 Sep, [facility] [place] [facility] [address] [id number] [place] [address]- 7162 Sep, [facility] [place] [facility] [address] [id number] [place] [address]- 0229 Sep, [facility] [place] [facility] [address] [id number] [place] [address]- 0611 Jul, [facility] [place] [facility] [address] [id number] [place] [address]- 9759 Jul, [facility] [place] [facility] [address] [id number] [place] [address]- 2653 Jul, [facility] [place] [facility] [address] [id number] [place] [address]- 6944 Jul, [facility] [place] [facility] [address] [id number] [place] [address]- 8698 Jul, [facility] [place] [facility] [address] [id number] [place] [address]- 2533 Jul, [facility] [place] [facility] [address] [id number] [place] [address]- 254 Jul, 2013 [facility] [place] [facility] [address] [id number] [place] [address]- 2549 Jul, [facility] [place] [facility] [address] [id number] [place] [address]- 3849 Jul, [facility] [place] [facility] [address] [id number] [place] [address]- 2549 Jul, [facility] [place] [facility] [address] [id number] [place] [address]- 0992 Jun, [facility] [place] [facility] [address] [id number] [place] [address]- 9916 Jun, [facility] [place] [facility] [address] [id number] [place] [address]- 8538 Jun, [facility] [place] [facility] [address] [id number] [place] [address]- 6153 Jun, [facility] [place] [facility] [address] [id number] [place] [address]- 1695 Jun, [facility] [place] [facility] [address] [id number] [place] [address]- 4304 Jun, [facility] [place] [facility] [address] [id number] [place] [address]- 7825 May, [facility] [place] [facility] [address] [id number] [place] [address]- 1450 May, [facility] [place] [facility] [address] [id number] [place] [address]- 2628 May, [facility] [place] [facility] [address] [id number] [place] [address]- 1840 May, [facility] [place] [facility] [address] [id number] [place] [address]- 9757 May, [facility] [place] [facility] [address] [id number] [place] [address]- 0423 May, [facility] [place] [facility] [address] [id number] [place] [address]- 5597 Apr, [facility] [place] [facility] [address] [id number] [place] [address]- 6748 Apr, [facility] [place] [facility] [address] [id number] [place] [address]- 9342 Apr, [facility] [place] [facility] [address] [id number] [place] [address]- 6070 Apr, [facility] [place] [facility] [address] [id number], [place] [address]- 7785 Apr, [facility] [place] [facility] [address] [id number] [place] [address]- 5424 Apr, [facility] [place] [facility] [address] [id number] [place] [address]- 9782 Apr, [facility] [place] [facility] [address] [id number] [place] [address]- 0939 Apr, [facility] [place] [facility] [address] [id number] [place] [address]- 8532 Apr, [facility] [place] [facility] [address] [id number] [place] [address]- 9042 Apr, [facility] [place] [facility] [address] [id number] [place] [address]- 6598 Apr, [facility] [place] [facility] [address] [id number] [place] [address]- 2300 Apr, [facility] [place] [facility] [address] [id number] [place] [address]- 3375 Apr, [facility] [place] [facility] [address] [id number] [place] [address]- 8813 March, [facility] [place] [facility] [address] [id number] [place] [address]- 2155 March, [facility] [place] [facility] [address] [id number] [place] [address]- 6589 March, [facility] [place] [facility] [address] [id number], [place] [address]- 5176 March, [facility] [place] [facility] [address] [id number] [place] [address]- 9827 March, [facility] [place] [facility] [address] [id number] [place] [address]- 0487 March, [facility] [place] [facility] [address] [id number] [place] [address]- 1760 Feb, [facility] [place] [facility] [address] [id number] [place] [address]- 2027 30 Feb, 2014 [facility] [place] [facility] [address] [id number] [place] [address]- 8827 Feb, [facility] [place] [facility] [address] [id number] [place] [address]- 7326 Feb, [facility] [place] [facility] [address] [id number] [place] [address]- 8519 Feb, [facility] [place] [facility] [address] [id number] [place] [address]- 9772 Feb, [facility] [place] [facility] [address] [id number] [place] [address] Feb, [facility] [place] [facility] [address] [id number] [place] [address] Feb, [facility] [place] [facility] [address] [id number] [place] [address] Feb, [facility] [place] [facility] [address] [id number] [place] [address] Feb, [facility] [place] [facility] [address] [id number] [place] [address] Jan, [facility] [place] [facility] [address] [id number] [place] [address] Jan, [facility] [place] [facility] [address] [id number] [place] [address] Jan, [facility] [place] [facility] [address] [id number] [place] [address] Jan, [facility] [place] [facility] [address] [id number] [place] [address] Dec, [facility] [place] [facility] [address] [id number] [place] [address] Dec, [facility] [place] [facility] [address] [id number] [place] [address] Sep, [facility] [address] [id number] [address] Sep, [facility] [id number] [place] [address] Aug, [facility] [id number] [place] [address] Aug, [facility] [id number] [place] [address] Aug, [facility] [id number] [place] [address] Aug, [facility] [id number] [place] [address] Aug, [facility] [id number] [place] [address] May, [facility] [id number] [place] [address] Jan, [facility] [id number] [place] [address] Jan, [facility] [id number] [address] Dec, IMMUNIZATIONS No Known Immunizations SOCIAL HISTORY Never Assessed REASON FOR VISIT finger pain--flipped out of swing and got Lt little finger stuck in the chain.-- LEROY Burleson PLAN OF CARE Activity Details Follow Up prn Reason: VITAL SIGNS Height 66 in 2018-05-24 Weight 161.2 lbs 2018-05-24 Temperature 97.5 degrees Fahrenheit 2018-05-24 Heart Rate 84 bpm 2018-05-24 Respiratory Rate 18 2018-05-24 BMI 26.02 kg/m2 2018-05-24 Blood pressure systolic 110 mmHg 2018-05-24 Blood pressure diastolic 66 mmHg 2018-05-24 MEDICATIONS Medication Instructions Dosage Frequency Start Date End Date Duration Status Lasix 20 mg Orally Once a day 1/2 tablet 24h Active Diazepam 5 MG Orally Twice a day 1 tablet as needed 12h Active Linzess 290 MCG Orally Once a day 1 capsule 24h Active Ambien 10 mg Orally Once a day 1 tablet at bedtime as needed 24h Aug, 28 days Active Movantik 25 MG Orally Once a day 1 tablet in the morning 24h Active Depakote 500 MG Orally 2 times a day 1 tablet 12h Apr, 30 days Not-Taking Potassium Chloride ER 10 MEQ Orally Once a day 2 capsules with food 24h Active Valium 5 mg Orally Twice a day 1 tablet as needed 12h Apr, Active Oxycodone HCl 10 mg Orally 4 times a day 1 tablet as needed 6h 21 Apr, 2018 28 days Active RESULTS Name Result Date Reference Range Xray : Finger(s), Left 2 views (IN HOUSE) 2018-05-24 PROCEDURES Procedure Date Ordered Result Body Site X-RAY EXAM OF FINGER(S) May 24, 2018 INSTRUCTIONS MEDICATIONS ADMINISTERED No Known Medications MEDICAL (GENERAL) HISTORY Type Description Date Medical History Asthma Medical History Hives since 2000 Surgical History spinal fusion 2014 Surgical History Tonsillectomy Surgical History Appendectomy Surgical History section Surgical History epidural anesthesia/injection Surgical History Hemorrhoidecomy with umu Surgical History colonoscopy
--- OUTSIDE RECORDS SUMMARY | 2018-10-18 19:36 | XMS REPORT ---
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 Name Role Phone FLORENCIA HINOJOSA Unavailable PROBLEMS Type Condition ICD9-CM Code OMC00-XN Code Onset Dates Condition Status SNOMED Code Problem Arthritis M19.90 Active 8383541 Problem Chronic fatigue R53.82 Active 73821214 Problem Intractable migraine without aura and without status migrainosus G43.019 Active 577533225 Problem Memory loss R41.3 Active 73316391 Problem Other chronic pain G89.29 Active 13423961 Problem Mental status change resolved Z86.59 Active 402366890 ALLERGIES Substance Reaction Event Type Date Status SulfADIAZINE Unknown Drug Allergy Apr, Active Prednisone nausea and vomiting Drug Allergy Apr, Active Morphine Sulfate nausea and vomiting Drug Allergy Apr, Active ENCOUNTERS Encounter Location Date Diagnosis [place] [id number] [place] [address] 27548- 8865 Jun, Intractable migraine without aura and without status migrainosus G43.019 ; Memory loss R41.3 and Tremors of nervous system R25.1 [place] [address] [address] 0[address] Jun, [facility] [id number] [place] [address] 68720- 3783 Jun, Intractable migraine without aura and without status migrainosus G43.019 [place] [id number] [place] [address] 24314- 7781 May, Intractable migraine without aura and without status migrainosus G43.019 [facility] [address] [address] 0567 May, 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 [facility] [id number] [place] [address] 34531- 2888 May, 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 [facility] [id number] [place] [address] 84603- 4570 May, 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 [facility] [id number] [place] [address] 55029 -8934 May, Pain in finger of left hand M79.645 [facility] [address] 57897- 1052 Apr, Intractable migraine without aura and without status migrainosus G43.019 [facility] [id number] [place] [address] 93120- 2021 Apr, Chronic fatigue R53.82 and Dizziness R42 [facility] [id number] [place] [address] 62125- 5546 March, [facility] [id number] [place] [address] 26554- 4761 March, Intractable migraine without aura and without status migrainosus G43.019 [facility] [id number] [place] [address] 85144- 4942 March, [facility] [id number] [place] [address] 49495- 3999 March, [facility] [id number] [place] [address] 58876- 2239 Feb, Intractable migraine without aura and without status migrainosus G43.019 [facility] [id number] [place] [address] 23741- 2949 Feb, Memory loss R41.3 and 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 [facility] [id number] [place] [address] 13395- 9114 Feb, Intractable migraine without aura and without status migrainosus G43.019 [facility] [id number] [place] [address] 38375- 1833 Jan, Intractable migraine without aura and without status migrainosus G43.019 [facility] [address] [place] [address] 33331- 8206 Dec, [facility] [address] [place] [address] 35070 2546 Dec, Intractable migraine without aura and without status migrainosus G43.019 [facility] [id number] [place] [address] 01501- 3646 Nov, [facility] [id number] [place] [address] 019371- 8736 Nov, Chronic fatigue R53.82 and Family history of thyroid disease Z83.49 [facility] [id number] [place] [address] 91167- 3846 Nov, Arthritis M19.90 ; Chronic fatigue R53.82 ; Family history of thyroid disease Z83.49 ; Grade IV hemorrhoids K64.3 and Other chronic pain G89.29 [facility] [id number] [place] [address] 87526- 6686 Nov, Intractable migraine without aura and without status migrainosus G43.019 [facility] [address] [address] 2546 Oct, [facility] [address] [place] [address] 41456 2546 Oct, Intractable migraine without aura and without status migrainosus G43.019 [facility] [address] [address] 2546 Oct, [facility] [id number] [place] [address] 2546 Oct, [facility] [address] [place] [address] 57547- 7246 Sep, Tremors of nervous system R25.1 [facility] [id number] [address]- 8866 Sep, [facility] [id number] [place] [address] 74915- 1946 Sep, Intractable migraine without aura and without status migrainosus G43.019 [facility] [address] [address] 2546 Sep, [facility] [id number] [place] [address] 37231 2546 Sep, [facility] [address] [place] [address] 54394- 5106 Sep, Acute medial meniscus tear of right knee, initial encounter S83.241A and Acute lateral meniscus tear of left knee, initial encounter S83.282A [facility] [address] [place] [address] 70796- 7906 Aug, Intractable migraine without aura and without status migrainosus G43.019 [facility] [address] [address] 2546 Aug, [facility] [id number] [place] [address] 70644- 2726 Aug, [facility] [address] [place] [address] 78989- 2546 Jul, [facility] [address] [place] [address] 86700 2546 Jul, [facility] [address] [address] 2546 Jul, Intractable migraine without aura and without status migrainosus G43.019 ; Memory loss R41.3 ; Mental status change resolved Z86.59 ; Other chronic pain G89.29 and Pain in right knee M25.561 [facility] [address] [address] 2546 18 Jul, 2017 [facility] [id number] [place] [address] 48736- 7963 Jun, Tremors of nervous system R25.1 and Pelvic pain R10.2 [facility] [id number] [place] [address] 22643- 7534 Jun, [facility] [id number] [place] [address] 46602- 2113 Jun, [facility] [id number] [place] [address] 00524- 0753 Jun, [facility] [id number] [place] [address] 01734- 5042 May, [facility] [id number] [place] [address] 56331- 7130 May, [facility] [id number] [place] [address] 05599- 2253 May, Kidney pain N23 [facility] [id number] [place] [address] 69325- 6259 May, Pelvic pain R10.2 [facility] [id number] [place] [address] 34382 -4091 May, Wasp sting, accidental or unintentional, initial encounter T63.461A and Allergic contact dermatitis due to other agents L23.89 [facility] [id number] [place] [address] 77521- 7686 May, [facility] [id number] [place] [address] 25436- 6689 May, Pelvic pain R10.2 [facility] [id number] [place] [address] 10168- 4954 May, [facility] [id number] [place] [address] 33175- 2812 Apr, Tremors of nervous system R25.1 ; Blood in stool, gabby K92.1 ; 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 ; Memory loss R41.3 and Intractable migraine without aura and without status migrainosus G43.019 [facility] [address] [address] 2546 Apr, Blood in stool, gabby K92.1 [facility] [id number] [place] [address] 42035 2546 Apr, Tremors of nervous system R25.1 ; 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 ; Memory loss R41.3 and Intractable migraine without aura and without status migrainosus G43.019 [facility] [address] [place] [address] 57765- 8387 Apr, [facility] [id number] [place] [address] 55930- 2838 Apr, Tremor R25.1 [facility] [id number] [place] [address] 94135- 5936 March, [facility] [id number] [place] [address] 39787- 3092 March, Cyst of right ovary N83.201 [facility] [id number] [place] [address] 61406- 3362 March, Blood in stool, gabby K92.1 and Other fatigue R53.83 [facility] [id number] [place] [address] 82360- 5546 March, Cyst of right ovary N83.201 [facility] [id number] [place] [address] 60975- 2047 Feb, [facility] [id number] [place] [address] 77159- 2540 Feb, [facility] [id number] [place] [address] 37921- 2546 Feb, Cyst of right ovary N83.201 and Right lower quadrant abdominal pain R10.31 [facility] [id number] [place] [address] 68601- 0707 Jan, Pelvic pain R10.2 [facility] [address] [place] [address] 16480- 5167 Jan, [facility] [id number] [place] [address] 16642- 5536 Jan, [facility] [id number] [place] [address] 66440- 0332 Jan, Left groin pain R10.30 [facility] [id number] [place] [address] 92728- 5714 Dec, [facility] [id number] [place] [address] 09811- 1619 Dec, Pelvic pain R10.2 and Lumbosacral neuritis M54.17 [facility] [id number] [place] [address] 98286- 0024 Dec, [facility] [id number] [place] [address] 00756- 2743 Dec, Lymph node enlargement R59.9 [facility] [id number] [place] [address] 84621- 4210 Nov, Lymph node enlargement R59.9 [facility] [id number] [place] [address] 47411- 0860 Nov, [facility] [id number] [place] [address] 52571- 3195 Nov, Left groin pain R10.30 [facility] [id number] [place] [address] 42194- 2732 Nov, Varicose vein of leg I83.90 ; Essential hypertension I10 and Short lasting unilateral neuralgiform headache with conjunctival injection and tearing (SUNCT), not intractable G44.059 [facility] [address] [address] -9858 07 Jul, 2016 Post concussion syndrome F07.81 [facility] [address] [address]- 4303 07 Jul, 2016 [facility] [address] [address]- 9826 Oct, [facility] [address] [address]- 6096 Oct, [facility] [address] [place] [address] 69516- 1984 Aug, [facility] [address] [place] [address] 43600- 9619 Aug, Obesity 278.00 [facility] [id number] [place] [address] 97902- 8716 Aug, [facility] [address] [place] [address] 247892- 3427 Jul, Obesity 278.00 and Cervical spondylosis without myelopathy 721.0 [facility] [address] [address]- 4606 March, [facility] [address] 7362 30 Feb, 2015 Cervical spondylosis 721.0 [facility] [address] [address]- 6292 14 Feb, 2015 [facility] [address] [address]- 2651 Feb, [facility] [address] [address]- 4301 23 Jan, 2015 [facility] [address] [address]- 9637 Jan, [facility] [address] [address]- 0156 18 Jan, 2015 [facility] [address] [address]- 7631 18 Jan, 2015 [facility] [place] [facility] [address] [id number] [place] [address]- 5436 Jan, [facility] [place] [facility] [address] [id number] [place] [address]- 7204 Jan, [facility] [place] [facility] [address] [id number] [place] [address]- 6323 Dec, 2014 [facility] [place] [facility] [address] [id number] [place] [address]- 2994 Dec, 2014 [facility] [place] [facility] [address] [id number] [place] [address]- 7260 Dec, [facility] [place] [facility] [address] [id number] [place] [address]- 9459 Dec, [facility] [place] [facility] [address] [id number] [place] [address]- 2203 Nov, [facility] [place] [facility] [address] [id number] [place] [address]- 8929 Nov, [facility] [place] [facility] [address] [id number] [place] [address]- 6765 Nov, [facility] [place] [facility] [address] [id number] [place] [address]- 6595 Nov, [facility] [place] [facility] [address] [id number] [place] [address]- 3751 Nov, [facility] [place] [facility] [address] [id number] [place] [address]- 0149 Nov, [facility] [place] [facility] [address] [id number] [place] [address]- 3089 Nov, [facility] [place] [facility] [address] [id number] [place] [address]- 2941 Nov, [facility] [place] [facility] [address] [id number] [place] [address]- 1235 Oct, [facility] [place] [facility] [address] [id number] [place] [address]- 6110 Oct, [facility] [place] [facility] [address] [id number] [place] [address]- 7117 Sep, [facility] [place] [facility] [address] [id number] [place] [address]- 9035 Sep, [facility] [place] [facility] [address] [id number] [place] [address]- 9873 Sep, [facility] [place] [facility] [address] [id number] [place] [address]- 9136 Sep, [facility] [place] [facility] [address] [id number] [place] [address]- 8462 Jul, [facility] [place] [facility] [address] [id number] [place] [address]- 4359 Jul, [facility] [place] [facility] [address] [id number] [place] [address]- 7099 Jul, [facility] [place] [facility] [address] [id number] [place] [address]- 1795 Jul, [facility] [place] [facility] [address] [id number] [place] [address]- 4996 Jul, [facility] [place] [facility] [address] [id number] [place] [address]- 9016 Jul, [facility] [place] [facility] [address] [id number] [place] [address]- 2260 Jul, [facility] [place] [facility] [address] [id number] [place] [address]- 5006 Jul, [facility] [place] [facility] [address] [id number] [place] [address]- 2545 Jul, [facility] [place] [facility] [address] [id number] [place] [address]- 2388 Jul, [facility] [place] [facility] [address] [id number] [place] [address]- 3607 Jun, [facility] [place] [facility] [address] [id number] [place] [address]- 7412 Jun, [facility] [place] [facility] [address] [id number] [place] [address]- 4296 Jun, [facility] [place] [facility] [address] [id number] [place] [address]- 1750 Jun, [facility] [place] [facility] [address] [id number] [place] [address]- 6602 Jun, [facility] [place] [facility] [address] [id number] [place] [address]- 3731 Jun, [facility] [place] [facility] [address] [id number] [place] [address]- 0322 May, [facility] [place] [facility] [address] [id number] [place] [address]- 7990 May, [facility] [place] [facility] [address] [id number] [place] [address]- 2921 May, [facility] [place] [facility] [address] [id number] [place] [address]- 8563 May, [facility] [place] [facility] [address] [id number] [place] [address]- 7878 May, [facility] [place] [facility] [address] [id number] [place] [address]- 6609 May, [facility] [place] [facility] [address] [id number] [place] [address]- 7063 Apr, [facility] [place] [facility] [address] [id number] [place] [address]- 9104 Apr, [facility] [place] [facility] [address] [id number] [place] [address]- 2556 Apr, [facility] [place] [facility] [address] [id number] [place] [address]- 2616 Apr, [facility] [place] [facility] [address] [id number] [place] 8635 Apr, [facility] [place] [facility] [address] [id number] [place] [address]- 6245 Apr, [facility] [place] [facility] [address] [id number] [place] [address]- 4398 Apr, [facility] [place] [facility] [address] [id number] [place] [address]- 6461 Apr, [facility] [place] [facility] [address] [id number] [place] [address]- 5838 Apr, [facility] [place] [facility] [address] [id number] [place] [address]- 2159 Apr, [facility] [place] [facility] [address] [id number] [place] [address]- 2312 Apr, [facility] [place] [facility] [address] [id number] [place] [address]- 7069 Apr, [facility] [place] [facility] [address] [id number] [place] [address]- 6151 Apr, [facility] [place] [facility] [address] [id number] [place] [address]- 8261 March, [facility] [place] [facility] [address] [id number] [place] [address]- 5880 March, [facility] [place] [facility] [address] [id number] [place] [address]- 6119 March, [facility] [place] [facility] [address] [id number] [place] [address]- 1745 March, [facility] [place] [facility] [address] [id number] [place] [address]- 8913 March, [facility] [place] [facility] [address] [id number] [place] [address]- 4375 March, [facility] [place] [facility] [address] [id number] [place] [address]- 5293 Feb, [facility] [place] [facility] [address] [id number] [place] [address]- 9000 30 Feb, 2014 [facility] [place] [facility] [address] [id number] [place] [address]- 1017 Feb, [facility] [place] [facility] [address] [id number] [place] [address]- 4026 Feb, [facility] [place] [facility] [address] [id number] [place] [address]- 8273 Feb, [facility] [place] [facility] [address] [id number] [place] [address]- 6127 18 Feb, 2014 [facility] [place] [facility] [address] [id number] [place] [address]- 9139 Feb, [facility] [place] [facility] [address] [id number] [place] [address]- 6285 Feb, [facility] [place] [facility] [address] [id number] [place] [address]- 2427 Feb, [facility] [place] [facility] [address] [id number] [place] [address]- 5288 Feb, [facility] [place] [facility] [address] [id number] [place] [address]- 2165 Jan, [facility] [place] [facility] [address] [facility] [id number] [place] [address]- 9441 Jan, [facility] [place] [facility] [address] [id number] [place] [address]- 0242 Jan, [facility] [place] [facility] [address] [id number] [place] [address]- 4461 Jan, [facility] [place] [facility] [address] [id number] [place] [address]- 5033 Dec, [facility] [place] [facility] [address] [id number] [place] [address] Dec, [facility] [place] [facility] [address] [facility] [id number] [place] [address] Sep, [facility] [place] [facility] [id number] [address] Sep, [facility] [id number] [address] Aug, [facility] [id number] [address] Aug, [facility] [id number] [address] Aug, [facility] [id number] [address] Aug, [facility] [id number] [place] [address] Aug, [facility] [id number] [address] May, [facility] [id number] [address] Jan, [facility] [address] [address] Jan, [facility] [id number] [address] Dec, IMMUNIZATIONS No Known Immunizations SOCIAL HISTORY Never Assessed REASON FOR VISIT followup pain WB-MA, PT feels dizzy occasionally and hasn't been able to sleep and lacks energy PLAN OF CARE VITAL SIGNS Height 66 in 2018-04-26 Weight 164 lbs 2018-04-26 Temperature 98.2 degrees Fahrenheit 2018-04-26 Heart Rate 92 bpm 2018-04-26 Respiratory Rate 18 2018-04-26 BMI 26.47 kg/m2 2018-04-26 Blood pressure systolic 112 mmHg 2018-04-26 Blood pressure diastolic 72 mmHg 2018-04-26 MEDICATIONS Medication Instructions Dosage Frequency Start Date End Date Duration Status Movantik 25 MG Orally Once a day 1 tablet in the morning 24h Active Diazepam 5 MG Orally Twice a day 1 tablet as needed 12h Active Linzess 290 MCG Orally Once a day 1 capsule 24h Active Depakote 500 MG Orally 2 times a day 1 tablet 12h Apr, 30 days Not-Taking Valium 5 mg Orally Twice a day 1 tablet as needed 12h Apr, Active Lasix 20 mg Orally Once a day 1/2 tablet 24h Active Potassium Chloride ER 10 MEQ Orally Once a day 2 capsules with food 24h Active Ambien 10 mg Orally Once a day 1 tablet at bedtime as needed 24h Aug, 28 days Active Oxycodone HCl 10 mg Orally 4 times a day 1 tablet as needed 6h March, 28 days Active RESULTS No Results PROCEDURES Procedure Date Ordered Result Body [facility] April [facility], 2018 VENIPUNCT, ROUTINE* April 26, 2018 INSTRUCTIONS MEDICATIONS ADMINISTERED No Known Medications MEDICAL (GENERAL) HISTORY Type Description Date Medical History Asthma Medical History Hives since 2000 Surgical History spinal fusion 2014 Surgical History Tonsillectomy Surgical History Appendectomy Surgical History section Surgical History epidural anesthesia/injection Surgical History Hemorrhoidecomy with umu Surgical History colonoscopy
--- OUTSIDE RECORDS SUMMARY | 2018-10-18 19:37 | XMS REPORT ---
Author Author FLORENCIA HINOJOSA Organization [facility] Address [address] [place] [address] Care Team Providers [employer] Principal Name Role Phone FLORENCIA HINOJOSA Unavailable PROBLEMS Type Condition ICD9-CM Code [id number] Code Onset Dates Condition Status SNOMED Code Problem Arthritis M19.90 Active 5203781 Problem Chronic fatigue R53.82 Active 21667373 Problem Intractable migraine without aura and without status migrainosus G43.019 Active 306637195 Problem Memory loss R41.3 Active 60634025 Problem Other chronic pain G89.29 Active 45823003 Problem Mental status change resolved Z86.59 Active [id number] ALLERGIES No Information ENCOUNTERS Encounter Location Date Diagnosis [place] [id number] [place] [address] 86869- 0877 Jun, Intractable migraine without aura and without status migrainosus G43.019 ; Memory loss R41.3 and Tremors of nervous system R25.1 [place] [id number] [place] [address] 51651- 7975 Jun, [place] [id number] [place] [address] 00178- 7103 Jun, Intractable migraine without aura and without status migrainosus G43.019 [place] [id number] [place] [address] 96605- 8684 May, Intractable migraine without aura and without status migrainosus G43.019 [place] [id number] [place] [address] 02575- 7734 May, 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 [place] [id number] [place] [address] 70216- 6388 May, 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 [place] [id number] [place] [address] 75426 2546 May, 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 [facility] [id number] [place] [address] 98893 2546 May, Pain in finger of left hand M79.645 [facility] [id number] [place] [address] 13586 2546 Apr, Intractable migraine without aura and without status migrainosus G43.019 [facility] [id number] [place] [address] 22266 2546 Apr, Chronic fatigue R53.82 and Dizziness R42 [facility] [address] [address] 2546 March, [facility] [address] 47789- 3346 March, Intractable migraine without aura and without status migrainosus G43.019 [facility] [id number] [place] [address] 70209 2546 March, [facility] [id number] [place] [address] 20086- 5026 March, [facility] [id number] [place] [address] 65434 2546 Feb, Intractable migraine without aura and without status migrainosus G43.019 [facility] [id number] [place] [address] 22733 2546 Feb, Memory loss R41.3 and 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 [facility] [id number] [place] [address] 32817 2546 Feb, Intractable migraine without aura and without status migrainosus G43.019 [facility] [id number] [place] [address] 50439 2546 Jan, Intractable migraine without aura and without status migrainosus G43.019 [facility] [id number] [place] [address] 12076- 7525 Dec, [facility] [id number] [place] [address] 78137- 9300 Dec, Intractable migraine without aura and without status migrainosus G43.019 [facility] [id number] [place] [address] 19148- 4470 Nov, [facility] [id number] [place] [address] 15265- 7445 Nov, Chronic fatigue R53.82 and Family history of thyroid disease Z83.49 [place] [id number] [place] [address] 62495- 4030 Nov, Arthritis M19.90 ; Chronic fatigue R53.82 ; Family history of thyroid disease Z83.49 ; Grade IV hemorrhoids K64.3 and Other chronic pain G89.29 [place] [id number] [place] [address] 94447- 8978 Nov, Intractable migraine without aura and without status migrainosus G43.019 [place] [id number] [place] [address] 27656- 4561 Oct, [facility] [id number] [place] [address] 10717- 2249 Oct, Intractable migraine without aura and without status migrainosus G43.019 [facility] [id number] [place] [address] 05702- 7516 Oct, [facility] [id number] [place] [address] 38051- 7796 Oct, [facility] [id number] [place] [address] 12106- 9565 Sep, Tremors of nervous system R25.1 [facility] [id number] [place] [address] 91836- 1344 Sep, [place] [address] [place] [address]- 4067 Sep, Intractable migraine without aura and without status migrainosus G43.019 [facility] [id number] [place] [address] 11007- 3236 Sep, [facility] [id number] [place] [address] 35840- 7286 Sep, [facility] [id number] [place] [address] 09061- 4291 Sep, Acute medial meniscus tear of right knee, initial encounter S83.241A and Acute lateral meniscus tear of left knee, initial encounter S83.282A [facility] [id number] [place] [address] 76464- 9185 Aug, Intractable migraine without aura and without status migrainosus G43.019 [facility] [id number] [place] [address] 98898- 0463 Aug, [facility] [id number] [place] [address] 28935- 0332 Aug, [facility] [id number] [place] [address] 67787- 2743 Jul, [facility] [id number] [place] [address] 90269- 7522 Jul, [facility] [id number] [place] [address] 91219- 7196 Jul, Intractable migraine without aura and without status migrainosus G43.019 ; Memory loss R41.3 ; Mental status change resolved Z86.59 ; Other chronic pain G89.29 and Pain in right knee M25.561 [facility] [id number] [place] [address] 77838- 9363 Jul, [facility] [id number] [place] [address] 46991- 4797 Jun, Tremors of nervous system R25.1 and Pelvic pain R10.2 [facility] [address] [address]- 5394 Jun, [facility] [id number] [place] [address] 29567- 6163 Jun, [facility] [id number] [place] [address] 60229- 2001 Jun, [facility] [id number] [place] [address] 41960- 1111 May, [facility] [id number] [place] [address] 20864- 9138 May, [facility] [id number] [place] [address] 99582- 3774 May, Kidney pain N23 [facility] [id number] [place] [address] 90311- 2710 May, Pelvic pain R10.2 [facility] [id number] [place] [address] 50236 -2316 May, Wasp sting, accidental or unintentional, initial encounter T63.461A and Allergic contact dermatitis due to other agents L23.89 [facility] [id number] [place] [address] 68571- 5460 May, [facility] [id number] [place] [address] 11661- 4102 May, Pelvic pain R10.2 [facility] [id number] [place] [address] 92507- 8235 May, [facility] [id number] [place] [address] 91860- 0456 Apr, Tremors of nervous system R25.1 ; Blood in stool, gabby K92.1 ; 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 ; Memory loss R41.3 and Intractable migraine without aura and without status migrainosus G43.019 [facility] [id number] [place] [address] 16188- 1454 Apr, Blood in stool, gabby K92.1 [facility] [id number] [place] [address] 28618- 3726 Apr, Tremors of nervous system R25.1 ; 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 ; Memory loss R41.3 and Intractable migraine without aura and without status migrainosus G43.019 [place] [address] 25146- 9822 Apr, [place] [address] 20476- 0676 Apr, Tremor R25.1 [place] [address] 47707- 3660 March, [place] [address] 16224- 5197 March, Cyst of right ovary N83.201 [place] [address] 94068- 9886 March, Blood in stool, gabby K92.1 and Other fatigue R53.83 [place] [address] 36605- 6224 March, Cyst of right ovary N83.201 [place] [id number] [place] [address] 30195- 3460 Feb, [place] [id number] [place] [address] 98463- 8369 Feb, [place] [id number] [place] [address] 62285- 3378 Feb, Cyst of right ovary N83.201 and Right lower quadrant abdominal pain R10.31 [place] [id number] [place] [address] 69502- 0246 Jan, Pelvic pain R10.2 [place] [address] 80510- 0054 Jan, [facility] [id number] [place] [address] 70526- 4083 Jan, [facility] [address] 29908- 4816 Jan, Left groin pain R10.30 [facility] [address] 53100- 9211 Dec, [facility] [address] 61954- 9278 Dec, Pelvic pain R10.2 and Lumbosacral neuritis M54.17 [facility] [address] 16936- 3846 Dec, [facility] [address] 21720- 0113 Dec, Lymph node enlargement R59.9 [facility] [address] 59181- 1419 Nov, Lymph node enlargement R59.9 [facility] [id number] [place] [address] 72267- 7408 Nov, [facility] [id number] [place] [address] 33189- 8987 Nov, Left groin pain R10.30 [facility] [id number] [place] [address] 10601- 1604 Nov, Varicose vein of leg I83.90 ; Essential hypertension I10 and Short lasting unilateral neuralgiform headache with conjunctival injection and tearing (SUNCT), not intractable G44.059 [facility] [id number] [place] [address] 07129 -3660 Jul, Post concussion syndrome F07.81 [facility] [id number] [place] [address] 47854- 8237 Jul, [facility] [id number] [place] [address] 78718- 4878 Oct, [facility] [address] [address]- 2857 Oct, [facility] [address] [address]- 8616 Aug, [facility] [address] [address]- 7236 Aug, Obesity 278.00 [facility] [id number] [place] [address] 12351- 9680 Aug, [facility] [id number] [place] [address] 72812- 7172 Jul, Obesity 278.00 and Cervical spondylosis without myelopathy 721.0 [facility] [address] [address]- 4600 March, [facility] [address] [address]- 2680 Feb, Cervical spondylosis 721.0 [facility] [address] [address]- 0053 Feb, [facility] [address] [address]- 3066 Feb, [facility] [address] [address]- 4552 Jan, [facility] [address] [address]- 6935 Jan, [facility] [address] [address]- 0769 Jan, [facility] [address] [address]- 0746 Jan, [facility] [id number] [address] 2546 Jan, [facility] [id number] [place] [address]- 4677 Jan, [facility] [place] [facility] [address] [id number] [place] [address]- 2918 Dec, [facility] [place] [facility] [address] [id number] [place] [address]- 3006 Dec, 2014 [facility] [place] [facility] [address] [id number] [place] [address]- 3436 Dec, [facility] [place] [facility] [address] [id number] [place] [address]- 3566 Dec, [facility] [place] [facility] [address] [id number] [place] [address]- 5247 Nov, [facility] [place] [facility] [address] [id number] [place] [address]- 6961 Nov, [facility] [place] [facility] [address] [id number] [place] [address]- 3105 Nov, [facility] [place] [facility] [address] [id number] [place] [address]- 1200 Nov, [facility] [place] [facility] [address] [id number] [place] [address]- 3416 Nov, [facility] [place] [facility] [address] [id number] [place] [address]- 3908 Nov, [facility] [place] [facility] [address] [id number] [place] [address]- 1145 Nov, [facility] [place] [facility] [address] [id number] [place] [address]- 1958 Nov, [facility] [place] [facility] [address] [id number] [place] [address]- 2462 Oct, [facility] [place] [facility] [address] [id number] [place] [address]- 8236 Oct, [facility] [place] [facility] [address] [id number] [place] [address]- 7283 Sep, [facility] [place] [facility] [address] [id number] [place] [address]- 9525 Sep, [facility] [place] [facility] [address] [id number] [place] [address]- 9738 Sep, [facility] [place] [facility] [address] [id number] [place] [address]- 5850 Sep, [facility] [place] [facility] [address] [id number] [place] [address]- 5933 Jul, [facility] [place] [facility] [address] [id number] [place] [address]- 7211 Jul, [facility] [place] [facility] [address] [id number] [place] [address]- 8822 Jul, [facility] [place] [facility] [address] [id number] [place] [address]- 0268 Jul, [facility] [place] [facility] [address] [id number] [place] [address]- 2410 Jul, [facility] [place] [facility] [address] [id number] [place] [address]- 6167 Jul, [facility] [place] [facility] [address] [id number] [place] [address]- 1148 Jul, [facility] [place] [facility] [address] [id number] [place] [address]- 3180 Jul, [facility] [place] [facility] [address] [id number] [address]- 0907 Jul, [facility] [place] [facility] [address] [id number] [place] [address]- 1963 Jul, [facility] [place] [facility] [address] [id number] [place] [address]- 9790 Jun, [facility] [place] [facility] [address] [id number] [place] [address]- 1036 Jun, [facility] [place] [facility] [address] [id number] [place] [address]- 6813 Jun, [facility] [place] [facility] [address] [id number] [place] [address]- 7460 Jun, [facility] [place] [facility] [address] [id number] [place] [address]- 0719 Jun, [facility] [place] [facility] [address] [id number] [place] [address]- 3817 Jun, [facility] [place] [facility] [address] [id number] [place] [address]- 8102 May, [facility] [place] [facility] [address] [id number] [place] [address]- 4431 May, [facility] [place] [facility] [address] [id number] [place] [address]- 4964 May, [facility] [place] [facility] [address] [id number] [place] [address]- 5976 May, [facility] [place] [facility] [address] [id number] [place] [address]- 6525 May, [facility] [place] [facility] [address] [id number] [place] [address]- 6861 May, [facility] [place] [facility] [address] [id number] [place] [address]- 2752 Apr, [facility] [place] [facility] [address] [id number] [place] [address]- 4537 Apr, [facility] [place] [facility] [address] [id number] [place] [address]- 5095 Apr, [facility] [place] [facility] [address] [id number] [place] [address]- 7573 Apr, [facility] [place] [facility] [address] [id number] [place] [address]- 3416 Apr, [facility] [place] [facility] [address] [id number] [place] [address]- 8333 Apr, [facility] [place] [facility] [address] [id number] [place] [address]- 0218 Apr, [facility] [place] [facility] [address] [id number] [place] [address]- 3157 Apr, [facility] [place] [facility] [address] [id number] [place] [address]- 7638 Apr, [facility] [place] [facility] [address] [id number] [place] [address]- 6973 Apr, [facility] [place] [facility] [address] [id number] [place] [address]- 5576 Apr, [facility] [place] [facility] [address] [id number] [place] [address]- 9986 Apr, [facility] [place] [facility] [address] [id number] [place] [address]- 5666 Apr, [facility] [place] [facility] [address] [id number] [place] [address]- 0952 March, [facility] [place] [facility] [address] [id number] [place] [address]- 3942 March, [facility] [place] [facility] [address] [id number] [place] [address]- 2708 March, [facility] [place] [facility] [address] [id number] [place] [address]- 0433 March, [facility] [place] [facility] [address] [id number] [place] [address]- 8776 March, [facility] [place] [facility] [address] [id number] [place] [address]- 3346 March, [facility] [place] [facility] [address] [id number] [place] [address]- 8745 Feb, [facility] [place] [facility] [address] [id number] [place] [address]- 2403 Feb, [facility] [place] [facility] [address] [id number] [place] [address]- 4678 Feb, [facility] [place] [facility] [address] [id number] [place] [address]- 2447 Feb, [facility] [place] [facility] [address] [id number] [place] [address]- 1248 Feb, [facility] [place] [facility] [address] [id number] [place] [address]- 6783 Feb, [facility] [place] [facility] [address] [id number] [place] [address]- 2765 Feb, [facility] [place] [facility] [address] [id number] [place] [address]- 3548 Feb, [facility] [place] [facility] [address] [id number] [place] [address]- 6252 Feb, [facility] [place] [facility] [address] [id number] [place] [address]- 9829 Feb, [facility] [place] [facility] [address] [id number] [place] [address]- 1883 Jan, [facility] [place] [facility] [address] [id number] [place] [address]- 6723 Jan, [facility] [place] [facility] [address] [id number] [place] [address] Jan, [facility] [place] [facility] [address] [id number] [place] [address] Jan, [facility] [place] [facility] [address] [id number] [place] [address] Dec, [facility] [place] [facility] [address] [id number] [place] [address] Dec, [facility] [place] [facility] [address] [id number] [place] [address] Sep, [facility] [place] [facility] [address] [id number] [place] [address] Sep, [facility] [place] [facility] [id number] [address] Aug, [facility] [id number] [address] Aug, [facility] [address] [address] Aug, [facility] [address] [address] Aug, [facility] [address] [address] Aug, [facility] [address] [address] May, [facility] [address] [address] Jan, [facility] [address] [address] Jan, [facility] [id number] [address] Dec, IMMUNIZATIONS No Known Immunizations SOCIAL HISTORY [...]
--- OUTSIDE RECORDS SUMMARY | 2018-10-18 19:37 | XMS REPORT ---
Author Author FLORENCIA HINOJOSA Organization [facility] Address [address] [place] [address] Care Team Providers Care News Video Editor Name Role Phone FLORENCIA HINOJOSA Unavailable PROBLEMS Type Condition ICD9-CM Code TKD35-AG Code Onset Dates Condition Status SNOMED Code Problem Arthritis M19.90 Active 0098215 Problem Chronic fatigue R53.82 Active 93140072 Problem Intractable migraine without aura and without status migrainosus G43.019 Active 130119025 Problem Memory loss R41.3 Active 86957220 Problem Other chronic pain G89.29 Active 81947487 Problem Mental status change resolved Z86.59 Active [id number] ALLERGIES No Information ENCOUNTERS Encounter Location Date Diagnosis [facility] [id number] [place] [address] 14029- 5599 Jun, [facility] [id number] [place] [address] 97787- 3048 Jun, Intractable migraine without aura and without status migrainosus G43.019 [facility] [id number] [place] [address] 36312- 3900 May, Intractable migraine without aura and without status migrainosus G43.019 [facility] [id number] [place] [address] 88692- 4130 May, 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 [facility] [id number] [place] [address] 14766- 4412 May, 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 [facility] [id number] [place] [address] 88035- 2455 May, 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 [facility] [id number] [place] [address] 72822 -0224 May, Pain in finger of left hand M79.645 [facility] [id number] [place] [address] 53367 2546 Apr, Intractable migraine without aura and without status migrainosus G43.019 [facility] [id number] [place] [address] 84330 2546 Apr, Chronic fatigue R53.82 and Dizziness R42 [facility] [id number] [place] [address] 64566 2546 March, [facility] [id number] [place] [address] 07886- 9556 March, Intractable migraine without aura and without status migrainosus G43.019 [facility] [id number] [place] [address] 50846 2546 March, [facility] [id number] [place] [address] 11859- 1596 March, [facility] [id number] [place] [address] 61039 2546 Feb, Intractable migraine without aura and without status migrainosus G43.019 [facility] [id number] [place] [address] 97435- 1756 Feb, Memory loss R41.3 and 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 [facility] [id number] [place] [address] 53696 2546 Feb, Intractable migraine without aura and without status migrainosus G43.019 [facility] [id number] [address] 2546 Jan, Intractable migraine without aura and without status migrainosus G43.019 [facility] [id number] [place] [address] 60037 2546 Dec, [facility] [id number] [place] [address] 64581 2546 Dec, Intractable migraine without aura and without status migrainosus G43.019 [facility] [id number] [place] [address] 73798- 9166 Nov, [facility] [id number] [place], [place] [address]- 864 Nov, Chronic fatigue R53.82 and Family history of thyroid disease Z83.49 [facility] [id number] [place] [address] 99433- 1041 Nov, Arthritis M19.90 ; Chronic fatigue R53.82 ; Family history of thyroid disease Z83.49 ; Grade IV hemorrhoids K64.3 and Other chronic pain G89.29 [facility] [id number] [place] [address] 44553- 5790 Nov, Intractable migraine without aura and without status migrainosus G43.019 [facility] [id number] [place] [address] 88955- 0146 Oct, [facility] [id number] [place] [address] 63801- 0960 Oct, Intractable migraine without aura and without status migrainosus G43.019 [facility] [id number] [place] [address] 21167- 2812 Oct, [facility] [id number] [place] [address] 75785- 0672 Oct, [facility] [id number] [place] [address] 56915- 1116 Sep, Tremors of nervous system R25.1 [facility] [id number] [place] [address] 00604- 1926 Sep, [place] [address] 89974- 5791 Sep, Intractable migraine without aura and without status migrainosus G43.019 [facility] [id number] [place] [address] 95969- 5677 Sep, [facility] [address] [address]- 6859 Sep, [facility] [id number] [place] [address] 98010- 9387 Sep, Acute medial meniscus tear of right knee, initial encounter S83.241A and Acute lateral meniscus tear of left knee, initial encounter S83.282A [facility] [id number] [place] [address] 54858- 2446 Aug, Intractable migraine without aura and without status migrainosus G43.019 [facility] [id number] [place] [address] 22230- 3936 Aug, [facility] [id number] [place] [address] 72977- 3806 Aug, [facility] [id number] [place] [address] 22588- 9254 Jul, [facility] [id number] [place] [address] 33735- 7422 Jul, [facility] [id number] [place] [address] 25335- 2088 Jul, Intractable migraine without aura and without status migrainosus G43.019 ; Memory loss R41.3 ; Mental status change resolved Z86.59 ; Other chronic pain G89.29 and Pain in right knee M25.561 [facility] [id number] [place] [address] 17123- 1303 Jul, [facility] [id number] [place] [address] 66771- 8170 Jun, Tremors of nervous system R25.1 and Pelvic pain R10.2 [facility] [id number] [place] [address] 00059- 0977 Jun, [facility] [id number] [place] [address] 18447- 0787 Jun, [place] [address] [address]- 1419 Jun, [facility] [id number] [place] [address] 37553- 2626 May, [facility] [id number] [place] [address] 05665- 3156 May, [facility] [id number] [place] [address] 08332- 5301 May, Kidney pain N23 [facility] [id number] [place] [address] 71616- 7408 May, Pelvic pain R10.2 [facility] [id number] [place] [address] 72742 -4592 May, Wasp sting, accidental or unintentional, initial encounter T63.461A and Allergic contact dermatitis due to other agents L23.89 [facility] [id number] [place] [address] 98787- 9206 May, [facility] [id number] [place] [address] 64734- 6660 May, Pelvic pain R10.2 [facility] [id number] [place] [address] 41135- 1450 May, [facility] [id number] [place] [address] 57788- 7762 Apr, Tremors of nervous system R25.1 ; Blood in stool, gabby K92.1 ; 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 ; Memory loss R41.3 and Intractable migraine without aura and without status migrainosus G43.019 [facility] [id number] [place] [address] 07992- 3930 Apr, Blood in stool, gabby K92.1 [facility] [address] [address]- 3366 Apr, Tremors of nervous system R25.1 ; 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 ; Memory loss R41.3 and Intractable migraine without aura and without status migrainosus G43.019 [facility] [id number] [place] [address] 49899- 1331 Apr, [facility] [id number] [place] [address] 58754- 6572 Apr, Tremor R25.1 [facility] [address] 71808- 3167 March, [facility] [id number] [place] [address] 87992- 1258 March, Cyst of right ovary N83.201 [facility] [id number] [place] [address] 26332- 4423 March, Blood in stool, gabby K92.1 and Other fatigue R53.83 [place] [address] 02214- 8698 March, Cyst of right ovary N83.201 [facility] [id number] [place] [address] 88459- 2772 Feb, [facility] [id number] [place] [address] 08741- 8525 Feb, [facility] [id number] [place] [address] 68333- 0501 Feb, Cyst of right ovary N83.201 and Right lower quadrant abdominal pain R10.31 [facility] [id number] [place] [address] 43343- 7791 Jan, Pelvic pain R10.2 [facility] [id number] [place] [address] 77693- 3256 Jan, [facility] [id number] [place] [address] 95101- 2548 Jan, [facility] [id number] [place] [address] 77735- 9824 Jan, Left groin pain R10.30 [facility] [id number] [place] [address] 40629- 9162 Dec, [facility] [id number] [place] [address] 85085- 9431 Dec, Pelvic pain R10.2 and Lumbosacral neuritis M54.17 [facility] [id number] [place] [address] 81800- 2518 Dec, [facility] [id number] [place] [address] 76899- 8433 Dec, Lymph node enlargement R59.9 [facility] [address] 65864- 3999 Nov, Lymph node enlargement R59.9 [facility] [id number] [place] [address] 62458- 5267 Nov, [facility] [id number] [place] [address] 76876- 6382 Nov, Left groin pain R10.30 [facility] [id number] [place] [address] 25498- 8128 Nov, Varicose vein of leg I83.90 ; Essential hypertension I10 and Short lasting unilateral neuralgiform headache with conjunctival injection and tearing (SUNCT), not intractable G44.059 [facility] [id number] [place] [address] 85538 -9663 Jul, Post concussion syndrome F07.81 [facility] [id number] [place] [address] 76135- 5664 Jul, [facility] [id number] [place] [address] 02307- 6404 Oct, [facility] [id number] [place] [address] 11718- 8175 Oct, [facility] [id number] [place] [address] 23669- 4139 Aug, [facility] [id number] [address]- 8593 Aug, Obesity 278.00 [facility] [id number] [address]- 6286 Aug, [facility] [address] [address]- 7527 Jul, Obesity 278.00 and Cervical spondylosis without myelopathy 721.0 [facility] [address] [address]- 8180 March, [facility] [address] [address]- 8336 Feb, Cervical spondylosis 721.0 [facility] [address] [address]- 4045 Feb, [facility] [address] [address]- 5596 Feb, [facility] [address] [address]- 4951 Jan, [facility] [address] [address]- 1418 Jan, [facility] [address] [address]- 7389 Jan, [facility] [address] [address]- 4832 Jan, [facility] [id number] [address]- 7456 Jan, [facility] [id number] [address]- 2926 Jan, [facility] [id number] [address]- 0296 Dec, [facility] [address] [place] [address]- 9051 18 Dec, 2014 [facility] [address] [id number] [place] [address]- 8438 Dec, [facility] [place] [facility] [address] [id number] [place] [address]- 8716 Dec, [facility] [place] [facility] [address] [id number] [place] [address]- 9759 Nov, [facility] [place] [facility] [address] [id number] [place] [address]- 2288 Nov, [facility] [place] [facility] [address] [id number] [place] [address]- 3643 Nov, [facility] [place] [facility] [address] [id number] [place] [address]- 4245 Nov, [facility] [place] [facility] [address] [id number] [place] [address]- 1301 Nov, [facility] [place] [facility] [address] [id number] [place] [address]- 6467 Nov, [facility] [place] [facility] [address] [id number] [place] [address]- 2330 Nov, [facility] [place] [facility] [address] [id number] [place] [address]- 3398 Nov, [facility] [place] [facility] [address] [id number] [place] [address]- 3844 Oct, [facility] [place] [facility] [address] [id number] [place] [address]- 9990 Oct, [facility] [place] [facility] [address] [id number] [place] [address]- 8995 Sep, [facility] [place] [facility] [address] [id number] [place] [address]- 3486 Sep, [facility] [place] [facility] [address] [id number] [place] [address]- 8336 Sep, [facility] [place] [facility] [address] [id number] [place] [address]- 9794 Sep, [facility] [place] [facility] [address] [id number] [place] [address]- 3750 Jul, [facility] [place] [facility] [address] [id number] [place] [address]- 6292 Jul, [facility] [place] [facility] [address] [id number] [place] [address]- 6403 Jul, 2013 [facility] [place] [facility] [address] [id number] [place] [address]- 9087 Jul, [facility] [place] [facility] [address] [id number] [place] [address]- 2927 Jul, [facility] [place] [facility] [address] [id number] [place] [address]- 8668 Jul, [facility] [place] [facility] [address] [id number] [place] [address]- 5906 Jul, [facility] [place] [facility] [address] [id number] [place] [address]- 8979 Jul, [facility] [place] [facility] [address] [id number] [place] [address]- 9944 Jul, [facility] [place] [facility] [address] [id number] [place] [address]- 7847 Jul, [facility] [place] [facility] [address] [id number] [address]- 4443 Jun, [facility] [place] [facility] [address] [id number] [place] [address]- 8707 Jun, [facility] [place] [facility] [address] [id number] [place] [address]- 3145 Jun, [facility] [place] [facility] [address] [id number] [place] [address]- 3880 Jun, [facility] [place] [facility] [address] [id number] [place] [address]- 1685 Jun, [facility] [place] [facility] [address] [id number] [place] [address]- 4580 Jun, [facility] [place] [facility] [address] [id number] [place] [address]- 6065 May, [facility] [place] [facility] [address] [id number] [place] [address]- 3158 May, [facility] [place] [facility] [address] [id number] [place] [address]- 0387 May, [facility] [place] [facility] [address] [id number] [place] [address]- 5788 May, [facility] [place] [facility] [address] [id number] [place] [address]- 0877 May, [facility] [place] [facility] [address] [id number] [place] [address]- 2533 May, [facility] [place] [facility] [address] [id number] [place] [address]- 5416 Apr, [facility] [place] [facility] [address] [id number] [place] [address]- 5795 Apr, [facility] [place] [facility] [address] [id number] [place] [address]- 1702 Apr, [facility] [place] [facility] [address] [id number] [place] [address]- 0656 Apr, [facility] [place] [facility] [address] [id number] [place] [address]- 3485 Apr, [facility] [place] [facility] [address] [id number] [place] [address]- 8634 Apr, [facility] [place] [facility] [address] [id number] [place] [address]- 3061 Apr, [facility] [place] [facility] [address] [id number] [place] [address]- 5753 Apr, [facility] [place] [facility] [address] [id number] [place] [address]- 7011 Apr, [facility] [place] [facility] [address] [id number] [place] [address]- 9340 Apr, [facility] [place] [facility] [address] [id number] [place] [address]- 5175 Apr, [facility] [place] [facility] [address] [id number] [place] [address]- 6122 Apr, [facility] [place] [facility] [address] [id number] [place] [address]- 3040 Apr, [facility] [place] [facility] [address] [id number] [place] [address]- 2791 March, [facility] [place] [facility] [address] [id number] [place] [address]- 8067 March, [facility] [place] [facility] [address] [id number] [place] [address]- 7134 March, [facility] [place] [facility] [address] [id number] [place] [address]- 0752 March, [facility] [place] [facility] [address] [id number] [place] [address]- 2151 March, [facility] [place] [facility] [address] [id number] [place] [address]- 1050 March, [facility] [place] [facility] [address] [id number] [place] [address]- 6287 Feb, [facility] [place] [facility] [address] [id number] [place] [address]- 5404 Feb, [facility] [place] [facility] [address] [id number] [place] [address]- 7410 Feb, [facility] [place] [facility] [address] [id number] [place] [address]- 4025 Feb, [facility] [place] [facility] [address] [id number] [place] [address]- 0578 Feb, [facility] [place] [facility] [address] [id number] [place] [address]- 1656 18 Feb, 2014 [facility] [place] [facility] [address] [id number] [place] [address]- 6211 Feb, [facility] [place] [facility] [address] [id number] [place] [address]- 2491 Feb, [facility] [place] [facility] [address] [id number] [place] [address]- 5597 Feb, [facility] [place] [facility] [address] [id number] [place] [address]- 5081 Feb, [facility] [place] [facility] [address] [id number] [place] [address]- 9817 Jan, [facility] [place] [facility] [address] [id number] [place] [address]- 5760 Jan, [facility] [place] [facility] [address] [id number] [place] [address]- 5853 Jan, [facility] [place] [facility] [address] [id number] [place] [address] Jan, [facility] [place] [facility] [address] [id number] [place] [address] Dec, [facility] [place] [facility] [address] [id number] [place] [address] Dec, [facility] [place] [facility] [address] [id number] [place] [address] Sep, [facility] [place] [facility] [address] [id number] [place] [address] Sep, [facility] [place] [facility] [address] [id number] [place] [address] Aug, [facility] [place] [facility] [address] [id number] [place] [address] Aug, [facility] [place] [facility] [address] [facility] [id number] [address] Aug, [facility] [address] [id number] [address] Aug, [facility] [address] [id number] [address] Aug, [facility] [address] [id number] [address] May, [facility] [address] [id number] [address] Jan, [facility] [address] [id number] [address] Jan, [facility] [address] [id number] [address] Dec, IMMUNIZATIONS No Known Immunizations SOCIAL HISTORY Never Assessed REASON FOR VISIT Controlled medication refill request PLAN OF CARE VITAL SIGNS MEDICATIONS Medication Instructions Dosage Frequency Start Date End Date Duration Status Oxycodone HCl 10 mg Orally 4 times a day 1 tablet as needed 6h Apr, 28 days Active Ambien 10 mg Orally [...]
--- OUTSIDE RECORDS SUMMARY | 2018-10-18 19:38 | XMS REPORT ---
Author Author FLORENCIA HINOJOSA Organization 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 [id number] [place] [address] 11737- 8194 Jun, Intractable migraine without aura and without status migrainosus G43.019 [facility] [id number] [place] [address] 37421- 1816 May, Intractable migraine without aura and without status migrainosus G43.019 [facility] [id number] [place] [address] 83226- 3844 May, 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 [id number] [place] [address] 49520- 9936 May, 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 [facility] [id number] [place] [address] 12390 -6196 May, Pain in finger of left hand M79.645 [facility] [id number] [place] [address] 80949- 6563 Apr, Intractable migraine without aura and without status migrainosus G43.019 [facility] [id number] [place] [address] 97744- 8964 Apr, Chronic fatigue R53.82 and Dizziness R42 [facility] [id number] [place] [address] 55806- 3576 March, [facility] [id number] [place] [address] 43017- 1486 March, Intractable migraine without aura and without status migrainosus G43.019 [facility] [id number] [place] [address] 05064- 2496 March, [facility] [id number] [place] [address] 72111- 2986 March, [facility] [id number] [place] [address] 91778- 7426 Feb, Intractable migraine without aura and without status migrainosus G43.019 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 [id number] [place] [address] 60181- 6453 Feb, Intractable migraine without aura and without status migrainosus G43.019 [facility] [id number] [place] [address] 31067- 0388 Jan, Intractable migraine without aura and without status migrainosus G43.019 [facility] [id number] [place] [address] 29810- 8386 Dec, [facility] [id number] [place] [address] 17856- 6619 Dec, Intractable migraine without aura and without status migrainosus G43.019 [facility] [id number] [place] [address] 22936- 0269 Nov, [facility] [id number] [place] [address] 94452- 6896 Nov, Chronic fatigue R53.82 and Family history of thyroid disease Z83.49 [facility] [id number] [place] [address] 95921- 6636 Nov, Arthritis M19.90 ; Chronic fatigue R53.82 ; Family history of thyroid disease Z83.49 ; Grade IV hemorrhoids K64.3 and Other chronic pain G89.29 [facility] [id number] [place] [address] 42360- 9688 Nov, Intractable migraine without aura and without status migrainosus G43.019 [facility] [id number] [place] [address] 62258- 4344 Oct, [facility] [id number] [place] [address] 91496- 3420 Oct, Intractable migraine without aura and without status migrainosus G43.019 [facility] [id number] [place] [address] 90981- 5662 Oct, [facility] [id number] [place] [address] 29405- 5958 Oct, [facility] [id number] [place] [address] 01933- 8317 Sep, Tremors of nervous system R25.1 [facility] [id number] [place] [address] 41229- 9859 Sep, [facility] [id number] [place] [address] 64897- 7771 Sep, Intractable migraine without aura and without status migrainosus G43.019 [facility] [id number] [place] [address] 27537- 2666 Sep, [facility] [id number] [place] [address] 56791- 5630 Sep, [facility] [address] [address]- 0310 Sep, Acute medial meniscus tear of right knee, initial encounter S83.241A and Acute lateral meniscus tear of left knee, initial encounter S83.282A [facility] [address] [address]- 2516 Aug, Intractable migraine without aura and without status migrainosus G43.019 [facility] [id number] [place] [address] 91426 2546 Aug, [facility] [id number] [place] [address] 68106- 3756 Aug, [facility] [id number] [place] [address] 33610- 6956 Jul, [facility] [id number] [place] [address] 11948- 6550 Jul, [facility] [id number] [place] [address] 35075- 1236 Jul, Intractable migraine without aura and without status migrainosus G43.019 ; Memory loss R41.3 ; Mental status change resolved Z86.59 ; Other chronic pain G89.29 and Pain in right knee M25.561 [facility] [id number] [place] [address] 00669- 0636 Jul, [facility] [id number] [place] [address] 24096- 4643 Jun, Tremors of nervous system R25.1 and Pelvic pain R10.2 [facility] [id number] [place] [address] 19147- 6221 Jun, [facility] [id number] [place] [address] 46506- 0113 Jun, [facility] [id number] [place] [address] 46218- 3756 Jun, [facility] [address] [address]- 8369 May, [facility] [id number] [place] [address] 02504- 7556 May, [facility] [address] [address]- 9595 May, Kidney pain N23 [facility] [id number] [place] [address] 16781- 8708 May, Pelvic pain R10.2 [facility] [id number] [place] [address] 30674 -2216 May, Wasp sting, accidental or unintentional, initial encounter T63.461A and Allergic contact dermatitis due to other agents L23.89 [facility] [id number] [place] [address] 55296- 9639 May, [facility] [id number] [place] [address] 87461- 0285 May, Pelvic pain R10.2 [facility] [address] [address]- 9691 May, 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 [address], [place] [address] 2541 Apr, Blood in stool, gabby K92.1 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 [id number] [address]- 7182 Apr, [facility] [id number] [place] [address] 26635- 2033 Apr, Tremor R25.1 [facility] [id number] [place] [address] 55803- 3611 March, [facility] [id number] [place] [address] 28775- 1027 March, Cyst of right ovary N83.201 [facility] [id number] [place] [address] 41943- 8813 March, Blood in stool, gabby K92.1 and Other fatigue R53.83 [facility] [id number] [place] [address] 84696- 0296 March, Cyst of right ovary N83.201 [facility] [id number] [place] [address] 88112- 5740 Feb, [facility] [id number] [place] [address] 71422- 6688 Feb, [facility] [id number] [place] [address] 62706- 4341 Feb, Cyst of right ovary N83.201 and Right lower quadrant abdominal pain R10.31 [facility] [id number] [place] [address] 09390- 8378 Jan, Pelvic pain R10.2 [facility] [id number] [place] [address] 20620- 1764 Jan, [facility] [id number] [place] [address] 06497- 0380 Jan, [facility] [id number] [place] [address] 19233- 8364 Jan, Left groin pain R10.30 [facility] [id number] [place] [address] 00032- 8963 Dec, [facility] [id number] [place] [address] 32408- 6619 Dec, Pelvic pain R10.2 and Lumbosacral neuritis M54.17 [facility] [id number] [place] [address] 87361- 5925 Dec, [facility] [address] 36594- 4460 Dec, Lymph node enlargement R59.9 [facility] [id number] [place] [address] 53502- 5735 Nov, Lymph node enlargement R59.9 [facility] [id number] [place] [address] 86584- 8895 Nov, [facility] [id number] [place] [address] 80757- 2422 Nov, Left groin pain R10.30 [facility] [id number] [place] [address] 50085- 9040 Nov, Varicose vein of leg I83.90 ; Essential hypertension I10 and Short lasting unilateral neuralgiform headache with conjunctival injection and tearing (SUNCT), not intractable G44.059 [facility] [address] [place] [address] 78294 -1850 Jul, Post concussion syndrome F07.81 [facility] [id number] [place] [address] 53402- 5857 Jul, [facility] [id number] [place] [address] 71783- 2929 Oct, [facility] [id number] [place] [address] 09332- 0942 Oct, [facility] [id number] [place] [address] 43444- 8432 Aug, [facility] [id number] [place] [address] 90743- 9699 Aug, Obesity 278.00 [facility] [address], [place] [address]- 4386 Aug, [facility] [address], [place] [address]- 8676 Jul, Obesity 278.00 and Cervical spondylosis without myelopathy 721.0 [facility] [address], [place] [address]- 4546 March, [facility] [address], [place] [address]- 6949 Feb, Cervical spondylosis 721.0 [facility] [address], [place] [address]- 2569 Feb, [facility] [address], [place] [address]- 1094 Feb, [facility] [address], [place] [address]- 0275 Jan, [facility] [address], [place] [address]- 5235 Jan, [facility] [address] [address]- 4979 Jan, [facility] [address], [place] [address]- 4917 Jan, [facility] [address], [place] [address]- 2886 Jan, [facility] [address], [place] [address] 2546 Jan, [facility] [address], [place] [address]- 6646 Dec, [facility] [address], [place] [address]- 4616 Dec, [facility] [address] [place] [address]- 8782 06 Dec, 2014 [facility] [address] [id number] [place] [address]- 3770 Dec, [facility] [place] [facility] [address] [id number] [place] [address]- 7142 Nov, [facility] [place] [facility] [address] [id number] [place] [address]- 4999 Nov, [facility] [place] [facility] [address] [id number] [place] [address]- 9771 Nov, [facility] [place] [facility] [address] [id number] [place] [address]- 7609 Nov, [facility] [place] [facility] [address] [id number] [place] [address]- 6799 Nov, [facility] [place] [facility] [address] [id number] [place] [address]- 4182 Nov, [facility] [place] [facility] [address] [id number] [place] [address]- 4331 Nov, [facility] [place] [facility] [address] [id number] [place] [address]- 9132 Nov, [facility] [place] [facility] [address] [id number] [place] [address]- 6193 Oct, [facility] [place] [facility] [address] [id number] [place] [address]- 9512 Oct, [facility] [place] [facility] [address] [id number] [place] [address]- 4022 Sep, [facility] [place] [facility] [address] [id number] [place] [address]- 9797 Sep, [facility] [place] [facility] [address] [id number] [place] [address]- 2247 Sep, [facility] [place] [facility] [address] [id number] [place] [address]- 5535 Sep, [facility] [place] [facility] [address] [id number] [place] [address]- 6169 Jul, 2013 [facility] [place] [facility] [address] [id number] [place] [address]- 8684 Jul, [facility] [place] [facility] [address] [id number] [place] [address]- 0238 Jul, [facility] [place] [facility] [address] [id number] [place] [address]- 6540 Jul, 2013 [facility] [place] [facility] [address] [id number] [place] [address]- 5725 Jul, [facility] [place] [facility] [address] [id number] [place] [address]- 5585 Jul, [facility] [place] [facility] [address] [id number] [place] [address]- 8825 Jul, [facility] [place] [facility] [address] [id number] [place] [address]- 7384 Jul, [facility] [place] [facility] [address] [id number] [place] [address]- 8117 Jul, [facility] [place] [facility] [address] [id number] [place] [address]- 6184 Jul, [facility] [place] [facility] [address] [id number] [place] [address]- 7193 Jun, [facility] [place] [facility] [address] [id number] [address]- 9097 Jun, [facility] [place] [facility] [address] [id number] [place] [address]- 1221 Jun, [facility] [place] [facility] [address] [id number] [place] [address]- 7286 Jun, [facility] [place] [facility] [address] [id number] [place] [address]- 8716 Jun, [facility] [place] [facility] [address] [id number] [place] [address]- 5820 Jun, [facility] [place] [facility] [address] [id number] [place] [address]- 9389 May, [facility] [place] [facility] [address] [id number] [place] [address]- 9476 May, [facility] [place] [facility] [address] [id number] [place] [address]- 7751 May, [facility] [place] [facility] [address] [id number] [place] [address]- 2713 May, [facility] [place] [facility] [address] [id number] [place] [address]- 0576 May, [facility] [place] [facility] [address] [id number] [place] [address]- 7120 May, [facility] [place] [facility] [address] [id number] [place] [address]- 0087 Apr, [facility] [place] [facility] [address] [id number] [place] [address]- 4409 Apr, [facility] [place] [facility] [address] [id number] [place] [address]- 1390 Apr, [facility] [place] [facility] [address] [id number] [place] [address]- 0080 Apr, [facility] [place] [facility] [address] [id number] [place] [address]- 5474 Apr, [facility] [place] [facility] [address] [id number] [place] [address]- 2280 Apr, [facility] [place] [facility] [address] [id number] [place] [address]- 5310 Apr, [facility] [place] [facility] [address] [id number] [place] [address]- 6995 Apr, [facility] [place] [facility] [address] [id number] [place] [address]- 8781 Apr, [facility] [place] [facility] [address] [id number] [place] [address] Apr, [facility] [place] [facility] [address] [id number] [place] [address] Apr, [facility] [place] [facility] [address] [id number] [place] [address] Apr, [facility] [place] [facility] [address] [id number] [place] [address] Apr, [facility] [place] [facility] [address] [id number] [place] [address] March, [facility] [place] [facility] [address] [id number] [place] [address] March, [facility] [place] [facility] [address] [id number] [place] [address] March, [facility] [place] [facility] [address] [id number] [place] [address] March, [facility] [place] [facility] [address] [id number] [place] [address] March, [facility] [place] [facility] [address] [id number] [place] [address] March, [facility] [place] [facility] [address] [id number] [place] [address] Feb, [facility] [place] [facility] [address] [id number] [place] [address] Feb, [facility] [place] [facility] [address] [id number] [place] [address] Feb, [facility] [place] [facility] [address] [id number] [place] [address] Feb, [facility] [place] [facility] [address] [id number] [place] [address] Feb, [facility] [place] [facility] [address] [id number] [place] [address] 18 Feb, 2014 [facility] [place] [facility] [address] [id number] [place] [address] 15 Feb, 2014 [facility] [place] [facility] [address] [id number] [place] [address] 15 Feb, 2014 [facility] [place] [facility] [address] [id number] [place] [address] Feb, [facility] [place] [facility] [address] [id number] [place] [address] Feb, [facility] [place] [facility] [address] [id number] [place] [address] Jan, [facility] [place] [facility] [address] [id number] [place] [address] Jan, [facility] [place] [facility] [address] [id number] [place] [address] Jan, [facility] [place] [facility] [address] [id number] [place] [address] Jan, [facility] [place] [facility] [address] [id number] [place] [address] Dec, [facility] [place] [facility] [address] [id number] [place] [address] Dec, [facility] [place] [facility] [address] [id number], [place] [address] Sep, [facility] [place] [facility] [address] [id number] [place] [address] Sep, [facility] [place] [facility] [address] [id number] [place] [address] Aug, [facility] [place] [facility] [address] [id number] [place] [address] Aug, [facility] [place] [facility] [address] [id number] [place] [address] Aug, [facility] [place] [facility] [address] [id number], [place] [address] Aug, [facility] [address] [id number], [place] [address] Aug, [facility] [id number], [place] [address] May, [facility] [id number], [place] [address] Jan, [facility] [id number], [place] [address] Jan, [facility] [address] [id number], [place] [address] Dec, IMMUNIZATIONS No Known Immunizations SOCIAL HISTORY Never Assessed REASON FOR VISIT questions PLAN OF CARE VITAL SIGNS MEDICATIONS Unknown [...]
--- OUTSIDE RECORDS SUMMARY | 2018-10-18 19:38 | XMS REPORT ---
Author Author FLORENCIA HINOJOSA Organization [facility] Address [address] [place] [address] Care Team Providers Care Forms Builder Name Role Phone FLORENCIA HINOJOSA Unavailable PROBLEMS Type Condition ICD9-CM Code YQL22-SQ Code Onset Dates Condition Status SNOMED Code Problem Arthritis M19.90 Active 6501433 Problem Chronic fatigue R53.82 Active 12689718 Problem Intractable migraine without aura and without status migrainosus G43.019 Active 532248646 Problem Memory loss R41.3 Active 43842072 Problem Other chronic pain G89.29 Active 90490680 Problem Mental status change resolved Z86.59 Active 185051009 ALLERGIES No Information ENCOUNTERS Encounter Location Date Diagnosis [facility] [id number] [place] [address] 81689- 4661 Jun, Intractable migraine without aura and without status migrainosus G43.019 [facility] [id number] [place] [address] 12920- 3752 May, Intractable migraine without aura and without status migrainosus G43.019 [facility] [id number] [place] [address] 84983- 1550 May, 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 [facility] [id number] [place] [address] 52757- 6308 May, 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 [facility] [id number] [place] [address] 42539- 4904 May, 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 [facility] [id number] [place] [address] 03567 -4375 May, Pain in finger of left hand M79.645 [facility] [id number] [place] [address] 67013- 1391 Apr, Intractable migraine without aura and without status migrainosus G43.019 [facility] [id number] [place] [address] 02695- 4343 Apr, Chronic fatigue R53.82 and Dizziness R42 [facility] [id number] [place] [address] 06086- 8576 March, [facility] [id number] [place] [address] 18615- 5653 March, Intractable migraine without aura and without status migrainosus G43.019 [facility] [id number] [place] [address] 34847- 9946 March, [facility] [id number] [place] [address] 01668- 1226 March, [facility] [id number] [place] [address] 69684- 6844 Feb, Intractable migraine without aura and without status migrainosus G43.019 [facility] [id number] [place] [address] 82213- 7494 Feb, Memory loss R41.3 and 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 [facility] [id number] [place] [address] 71887- 2819 Feb, Intractable migraine without aura and without status migrainosus G43.019 [facility] [id number] [place] [address] 76530- 2039 Jan, Intractable migraine without aura and without status migrainosus G43.019 [facility] [id number] [place] [address] 47946- 3096 Dec, [facility] [id number] [place] [address] 81501- 8059 Dec, Intractable migraine without aura and without status migrainosus G43.019 [facility] [id number] [place] [address] 01730- 7796 Nov, [facility] [id number] [place] [address] 06106- 3376 Nov, Chronic fatigue R53.82 and Family history of thyroid disease Z83.49 [facility] [id number] [place] [address] 77205- 1746 Nov, Arthritis M19.90 ; Chronic fatigue R53.82 ; Family history of thyroid disease Z83.49 ; Grade IV hemorrhoids K64.3 and Other chronic pain G89.29 [facility] [id number] [place] [address] 92149- 9628 Nov, Intractable migraine without aura and without status migrainosus G43.019 [facility] [id number] [place] [address] 71358- 1632 Oct, [facility] [id number] [place] [address] 52037- 9028 Oct, Intractable migraine without aura and without status migrainosus G43.019 [facility] [id number] [place] [address] 78062- 6791 Oct, [facility] [id number] [place] [address] 20883- 9843 Oct, [facility] [id number] [place] [address] 05934- 1747 Sep, Tremors of nervous system R25.1 [facility] [id number] [place] [address] 18257- 0892 Sep, [facility] [id number] [place] [address] 23547- 1941 Sep, Intractable migraine without aura and without status migrainosus G43.019 [facility] [id number] [place] [address] 51071- 1456 Sep, [facility] [id number] [place] [address] 07513- 2465 Sep, [facility] [address] [address]- 6872 Sep, Acute medial meniscus tear of right knee, initial encounter S83.241A and Acute lateral meniscus tear of left knee, initial encounter S83.282A [facility] [address] [address]- 3176 Aug, Intractable migraine without aura and without status migrainosus G43.019 [facility] [id number] [place] [address] 03736 2546 Aug, [facility] [id number] [place] [address] 13531- 8896 Aug, [facility] [id number] [place] [address] 10411- 6096 Jul, [facility] [id number] [place] [address] 27360- 9966 Jul, [facility] [id number] [place] [address] 84462- 1350 Jul, Intractable migraine without aura and without status migrainosus G43.019 ; Memory loss R41.3 ; Mental status change resolved Z86.59 ; Other chronic pain G89.29 and Pain in right knee M25.561 [facility] [id number] [place] [address] 26981- 5816 Jul, [facility] [id number] [place] [address] 04428- 3215 Jun, Tremors of nervous system R25.1 and Pelvic pain R10.2 [facility] [id number] [place] [address] 12155- 9612 Jun, [facility] [id number] [place] [address] 87423- 3735 Jun, [facility] [id number] [place] [address] 90595- 6043 Jun, [facility] [address] [address]- 6613 May, [facility] [id number] [place] [address] 81612- 2566 May, [facility] [address], [place] [address]- 3699 May, Kidney pain N23 [facility] [id number] [place] [address] 78671- 0892 May, Pelvic pain R10.2 [facility] [id number] [place] [address] 67553 -6974 May, Wasp sting, accidental or unintentional, initial encounter T63.461A and Allergic contact dermatitis due to other agents L23.89 [facility] [id number] [place] [address] 19737- 0028 May, [facility] [id number] [place] [address] 51773- 3498 May, Pelvic pain R10.2 [facility] [address] [address]- 4912 May, [facility] [id number] [address]- 3720 Apr, Tremors of nervous system R25.1 ; Blood in stool, gabby K92.1 ; 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 ; Memory loss R41.3 and Intractable migraine without aura and without status migrainosus G43.019 [facility] [id number], [place] [address] 2542 Apr, Blood in stool, gabby K92.1 [facility] [id number] [address] 2546 Apr, Tremors of nervous system R25.1 ; 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 ; Memory loss R41.3 and Intractable migraine without aura and without status migrainosus G43.019 [facility] [id number] [address]- 9624 Apr, [facility] [id number] [place] [address] 39888- 0989 Apr, Tremor R25.1 [facility] [id number] [place] [address] 03293- 2064 March, [facility] [id number] [place] [address] 04740- 4128 March, Cyst of right ovary N83.201 [facility] [id number] [place] [address] 17028- 5341 March, Blood in stool, gabby K92.1 and Other fatigue R53.83 [facility] [id number] [place] [address] 79024- 5155 March, Cyst of right ovary N83.201 [facility] [id number] [place] [address] 39164- 9683 Feb, [facility] [id number] [place] [address] 33617- 9353 Feb, [facility] [id number] [place] [address] 09875- 1207 Feb, Cyst of right ovary N83.201 and Right lower quadrant abdominal pain R10.31 [facility] [id number] [place] [address] 38596- 7412 Jan, Pelvic pain R10.2 [facility] [id number] [place] [address] 54560- 5292 Jan, [facility] [id number] [place] [address] 49457- 3491 Jan, [facility] [id number] [place] [address] 73524- 9839 Jan, Left groin pain R10.30 [facility] [id number] [place] [address] 56736- 8082 Dec, [facility] [id number] [place] [address] 17210- 6766 Dec, Pelvic pain R10.2 and Lumbosacral neuritis M54.17 [facility] [id number] [place] [address] 17542- 2363 Dec, [facility] [address] 51068- 9227 Dec, Lymph node enlargement R59.9 [facility] [id number] [place] [address] 80788- 1069 Nov, Lymph node enlargement R59.9 [facility] [id number] [place] [address] 47990- 4677 Nov, [facility] [id number] [place] [address] 51567- 7846 Nov, Left groin pain R10.30 [facility] [id number] [place] [address] 57737- 7729 Nov, Varicose vein of leg I83.90 ; Essential hypertension I10 and Short lasting unilateral neuralgiform headache with conjunctival injection and tearing (SUNCT), not intractable G44.059 [facility] [id number] [place] [address] 14390 -7875 Jul, Post concussion syndrome F07.81 [facility] [id number] [place] [address] 89027- 2471 Jul, [facility] [id number] [place] [address] 46352- 6633 Oct, [facility] [id number] [place] [address] 27690- 4762 Oct, [facility] [id number] [place] [address] 36381- 3932 Aug, [facility] [id number] [place] [address] 63508- 1894 Aug, Obesity 278.00 [facility] [id number] [address]- 8536 Aug, [facility] [id number] [address]- 0856 Jul, Obesity 278.00 and Cervical spondylosis without myelopathy 721.0 [facility] [id number], [place] [address]- 4696 March, [facility] [id number], [place] [address]- 7704 Feb, Cervical spondylosis 721.0 [facility] [id number], [place] [address]- 3604 Feb, [facility] [id number], [place] [address]- 9091 Feb, [facility] [id number], [place] [address]- 8828 Jan, [facility] [id number], [place] [address]- 8031 Jan, [facility] [id number], [place] [address]- 5666 Jan, [facility] [id number], [place] [address]- 3964 Jan, [facility] [id number], [place] [address]- 3146 Jan, [facility] [id number], [place] [address] 2546 Jan, [facility] [id number], [place] [address]- 9456 Dec, [facility] [id number], [place] [address]- 1436 Dec, [facility] [address] [address]- 5072 06 Dec, 2014 [facility] [address] [id number] [place] [address]- 6191 Dec, [facility] [place] [facility] [address] [id number] [place] [address]- 6101 Nov, [facility] [place] [facility] [address] [id number] [place] [address]- 0565 Nov, [facility] [place] [facility] [address] [id number] [place] [address]- 5724 Nov, [facility] [place] [facility] [address] [id number] [place] [address]- 8956 Nov, [facility] [place] [facility] [address] [id number] [place] [address]- 6259 Nov, [facility] [place] [facility] [address] [id number] [place] [address]- 5031 Nov, [facility] [place] [facility] [address] [id number] [place] [address]- 4503 Nov, [facility] [place] [facility] [address] [id number] [place] [address]- 2742 Nov, [facility] [place] [facility] [address] [id number] [place] [address]- 1315 Oct, [facility] [place] [facility] [address] [id number] [place] [address]- 8363 Oct, [facility] [place] [facility] [address] [id number] [place] [address]- 2525 Sep, [facility] [place] [facility] [address] [id number] [place] [address]- 1567 Sep, [facility] [place] [facility] [address] [id number] [place] [address]- 8206 Sep, [facility] [place] [facility] [address] [id number] [place] [address]- 0073 Sep, [facility] [place] [facility] [address] [id number] [place] [address]- 1211 Jul, 2013 [facility] [place] [facility] [address] [id number] [place] [address]- 5284 Jul, [facility] [place] [facility] [address] [id number] [place] [address]- 8323 Jul, [facility] [place] [facility] [address] [id number] [place] [address]- 5979 Jul, 2013 [facility] [place] [facility] [address] [id number] [place] [address]- 9554 Jul, [facility] [place] [facility] [address] [id number] [place] [address]- 0043 Jul, [facility] [place] [facility] [address] [id number] [place] [address]- 9734 Jul, [facility] [place] [facility] [address] [id number] [place] [address]- 4757 Jul, [facility] [place] [facility] [address] [id number] [place] [address]- 0874 Jul, [facility] [place] [facility] [address] [id number] [place] [address]- 5871 Jul, [facility] [place] [facility] [address] [id number] [place] [address]- 0565 Jun, [facility] [place] [facility] [address] [id number] [address]- 7735 Jun, [facility] [place] [facility] [address] [id number] [place] [address]- 5291 Jun, [facility] [place] [facility] [address] [id number] [place] [address]- 0936 Jun, [facility] [place] [facility] [address] [id number] [place] [address]- 0238 Jun, [facility] [place] [facility] [address] [id number] [place] [address]- 5684 Jun, [facility] [place] [facility] [address] [id number] [place] [address]- 3415 May, [facility] [place] [facility] [address] [id number] [place] [address]- 7432 May, [facility] [place] [facility] [address] [id number] [place] [address]- 9693 May, [facility] [place] [facility] [address] [id number] [place] [address]- 0366 May, [facility] [place] [facility] [address] [id number] [place] [address]- 4484 May, [facility] [place] [facility] [address] [id number] [place] [address]- 7193 May, [facility] [place] [facility] [address] [id number] [place] [address]- 3645 Apr, [facility] [place] [facility] [address] [id number] [place] [address]- 7958 Apr, [facility] [place] [facility] [address] [id number] [place] [address]- 2037 Apr, [facility] [place] [facility] [address] [id number] [place] [address]- 7135 Apr, [facility] [place] [facility] [address] [id number] [place] [address]- 2421 Apr, [facility] [place] [facility] [address] [id number] [place] [address]- 5629 Apr, [facility] [place] [facility] [address] [id number] [place] [address]- 0149 Apr, [facility] [place] [facility] [address] [id number] [place] [address]- 0405 Apr, [facility] [place] [facility] [address] [id number] [place] [address]- 2207 Apr, [facility] [place] [facility] [address] [id number] [place] [address]- 5902 Apr, [facility] [place] [facility] [address] [id number] [place] [address]- 4519 Apr, [facility] [place] [facility] [address] [id number] [place] [address]- 3820 Apr, [facility] [place] [facility] [address] [id number] [place] [address]- 3622 Apr, [facility] [place] [facility] [address] [id number] [place] [address]- 7534 March, [facility] [place] [facility] [address] [id number] [place] [address]- 3991 March, [facility] [place] [facility] [address] [id number] [place] [address]- 4023 March, [facility] [place] [facility] [address] [id number] [place] [address]- 2327 March, [facility] [place] [facility] [address] [id number] [place] [address]- 3749 March, [facility] [place] [facility] [address] [id number] [place] [address]- 6821 March, [facility] [place] [facility] [address] [id number] [place] [address]- 0020 Feb, [facility] [place] [facility] [address] [id number] [place] [address]- 9182 Feb, [facility] [place] [facility] [address] [id number] [place] [address]- 2554 Feb, [facility] [place] [facility] [address] [id number] [place] [address]- 9364 Feb, [facility] [place] [facility] [address] [id number] [place] [address]- 0787 Feb, [facility] [place] [facility] [address] [id number] [place] [address]- 7766 18 Feb, 2014 [facility] [place] [facility] [address] [id number] [place] [address]- 0644 15 Feb, 2014 [facility] [place] [facility] [address] [id number] [place] [address]- 7562 15 Feb, 2014 [facility] [place] [facility] [address] [id number] [place] [address]- 4415 Feb, [facility] [place] [facility] [address] [id number] [place] [address]- 3484 Feb, [facility] [place] [facility] [address] [id number] [place] [address]- 5916 Jan, [facility] [place] [facility] [address] [id number] [place] [address] Jan, [facility] [place] [facility] [address] [id number] [place] [address] Jan, [facility] [place] [facility] [address] [id number] [place] [address] Jan, [facility] [place] [facility] [address] [id number] [place] [address] Dec, [facility] [place] [facility] [address] [id number] [place] [address] Dec, [facility] [place] [facility] [address] [id number], [place] [address] Sep, [facility] [place] [facility] [address] [id number] [place] [address] Sep, [facility] [place] [facility] [address] [id number] [place] [address] Aug, [facility] [place] [facility] [address] [id number] [place] [address] Aug, [facility] [place] [facility] [address] [id number] [place] [address] Aug, [facility] [place] [facility] [address] [facility] [id number] [place] [address] Aug, [facility] [address] [facility] [id number], [place] [address] Aug, [facility] [address] [id number], [place] [address] May, [facility] [address] [id number], [place] [address] Jan, [facility] [address] [id number], [place] [address] Jan, [facility] [address] [facility] [id number], [place] [address] Dec, IMMUNIZATIONS No Known Immunizations SOCIAL HISTORY Never Assessed REASON FOR VISIT Controlled Med Refill 04/16/18 PLAN OF CARE VITAL SIGNS MEDICATIONS Medication [...]
--- OUTSIDE RECORDS SUMMARY | 2018-10-18 19:39 | XMS REPORT ---
Author Author FLORENCIA HINOJOSA Organization [facility] Address [address] [place] [address] Care Team Providers Care Rating Clerk Name Role Phone FLORENCIA HINOJOSA Unavailable PROBLEMS Type Condition ICD9-CM Code OSE28-XI Code Onset Dates Condition Status SNOMED Code Problem Arthritis M19.90 Active 3167724 Problem Chronic fatigue R53.82 Active 10591686 Problem Intractable migraine without aura and without status migrainosus G43.019 Active 479679786 Problem Memory loss R41.3 Active 80084890 Problem Other chronic pain G89.29 Active 10683158 Problem Mental status change resolved Z86.59 Active [id number] ALLERGIES No Information ENCOUNTERS Encounter Location Date Diagnosis [facility] [id number] [place] [address] 47108- 2158 May, Intractable migraine without aura and without status migrainosus G43.019 [facility] [address] 91617- 9234 May, 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 [facility] [id number] [place] [address] 57148- 1800 May, 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 [facility] [id number] [place] [address] 88894- 9764 May, 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 [facility] [id number] [place] [address] 94936 -1774 May, Pain in finger of left hand M79.645 [facility] [id number] [place] [address] 51683- 6770 Apr, Intractable migraine without aura and without status migrainosus G43.019 [facility] [address] 98058- 1939 Apr, Chronic fatigue R53.82 and Dizziness R42 [facility] [id number] [place] [address] 84625- 9286 March, [facility] [id number] [place] [address] 4466 March, Intractable migraine without aura and without status migrainosus G43.019 [facility] [id number] [place] [address] 19757- 8256 March, [facility] [id number] [place] [address] 16700- 0790 March, [facility] [id number] [place] [address] 25201- 8928 Feb, Intractable migraine without aura and without status migrainosus G43.019 [facility] [id number] [place] [address] 41169- 4095 Feb, Memory loss R41.3 and 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 [facility] [id number] [place] [address] 94998- 8902 Feb, Intractable migraine without aura and without status migrainosus G43.019 [facility] [id number] [place] [address] 19936- 9666 Jan, Intractable migraine without aura and without status migrainosus G43.019 [facility] [id number] [place] [address] 58434- 2386 Dec, [facility] [id number] [place] [address] 74051- 7325 Dec, Intractable migraine without aura and without status migrainosus G43.019 [facility] [id number] [place] [address] 99700- 7186 Nov, [facility] [id number] [place] [address] 13850- 9321 Nov, Chronic fatigue R53.82 and Family history of thyroid disease Z83.49 [facility] [id number] [place] [address] 66057- 6616 Nov, Arthritis M19.90 ; Chronic fatigue R53.82 ; Family history of thyroid disease Z83.49 ; Grade IV hemorrhoids K64.3 and Other chronic pain G89.29 [facility] [id number] [place] [address] 92591 2546 Nov, Intractable migraine without aura and without status migrainosus G43.019 [facility] [id number] [place] [address] 66892- 5936 Oct, [facility] [id number] [place] [address] 77391- 8406 Oct, Intractable migraine without aura and without status migrainosus G43.019 [facility] [id number] [place] [address] 55957- 8456 Oct, [facility] [id number] [place] [address] 39044 2546 Oct, [facility] [id number] [place] [address] 26412- 8816 Sep, Tremors of nervous system R25.1 [facility] [id number] [place] [address] 90628 2546 Sep, [facility] [id number] [place] [address] 89792 2546 Sep, Intractable migraine without aura and without status migrainosus G43.019 [facility] [id number] [place] [address] 30731 2546 Sep, [facility] [id number] [place] [address] 60566 2546 Sep, [facility] [id number] [place] [address] 29273- 2546 Sep, Acute medial meniscus tear of right knee, initial encounter S83.241A and Acute lateral meniscus tear of left knee, initial encounter S83.282A [facility] [id number] [place] [address] 56528- 3966 Aug, Intractable migraine without aura and without status migrainosus G43.019 [facility] [id number] [place] [address] 48842- 2546 Aug, [facility] [id number] [place] [address] 32438- 2546 Aug, [facility] [id number] [place] [address] 65825- 8776 Jul, [facility] [id number] [place] [address] 44513- 0226 Jul, [facility] [id number] [place] [address] 71218- 1410 Jul, Intractable migraine without aura and without status migrainosus G43.019 ; Memory loss R41.3 ; Mental status change resolved Z86.59 ; Other chronic pain G89.29 and Pain in right knee M25.561 [facility] [id number] [place] [address] 26717- 7439 Jul, [facility] [id number] [place] [address] 98509- 3066 Jun, Tremors of nervous system R25.1 and Pelvic pain R10.2 [facility] [id number] [place] [address] 47970- 6298 Jun, [facility] [id number] [place] [address] 39136- 2546 Jun, [facility] [id number] [place] [address] 97340- 4576 Jun, [facility] [id number] [place] [address] 65542- 6672 May, [facility] [id number] [place] [address] 15234 2546 May, [facility] [id number] [address]- 6616 May, Kidney pain N23 [facility] [address] [address] 2546 May, Pelvic pain R10.2 [facility] [id number] [place] [address] 58878 -3713 May, Wasp sting, accidental or unintentional, initial encounter T63.461A and Allergic contact dermatitis due to other agents L23.89 [facility] [id number] [place] [address] 78302- 4548 May, [facility] [id number] [place] [address] 14330- 5781 May, Pelvic pain R10.2 [facility] [id number] [place] [address] 46576 254 May, [facility] [id number] [place] [address] 49138 2543 Apr, Tremors of nervous system R25.1 ; Blood in stool, gabby K92.1 ; 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 ; Memory loss R41.3 and Intractable migraine without aura and without status migrainosus G43.019 [facility] [address] [address] 2549 Apr, Blood in stool, gabby K92.1 [facility] [id number] [address] 2546 Apr, Tremors of nervous system R25.1 ; 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 ; Memory loss R41.3 and Intractable migraine without aura and without status migrainosus G43.019 [facility] [address] [address] 2546 Apr, [facility] [id number] [place] [address] 79982- 4108 Apr, Tremor R25.1 [facility] [id number] [place] [address] 74640- 9412 March, [facility] [address] 34564- 7565 March, Cyst of right ovary N83.201 [facility] [address] 21277- 5306 March, Blood in stool, gabby K92.1 and Other fatigue R53.83 [facility] [id number] [place] [address] 67046- 3973 March, Cyst of right ovary N83.201 [facility] [id number] [place] [address] 18496- 2218 Feb, [facility] [address] 47828- 1092 Feb, [facility] [address] 29628- 7181 Feb, Cyst of right ovary N83.201 and Right lower quadrant abdominal pain R10.31 [facility] [id number] [place] [address] 70817- 8347 Jan, Pelvic pain R10.2 [facility] [id number] [place] [address] 79741- 4351 Jan, [facility] [id number] [place] [address] 79047- 7793 Jan, [facility] [id number] [place] [address] 38907- 8607 Jan, Left groin pain R10.30 [facility] [id number] [place] [address] 13731- 6523 Dec, [facility] [id number] [place] [address] 85596- 1228 Dec, Pelvic pain R10.2 and Lumbosacral neuritis M54.17 [facility] [id number] [place] [address] 94517- 8410 Dec, [facility] [id number] [place] [address]- 1401 Dec, Lymph node enlargement R59.9 [facility] [id number] [place] [address] 58472- 3061 Nov, Lymph node enlargement R59.9 [facility] [id number] [place] [address] 57142- 4777 Nov, [facility] [address] 97743- 3507 Nov, Left groin pain R10.30 [facility] [id number] [place] [address] 82828- 4834 Nov, Varicose vein of leg I83.90 ; Essential hypertension I10 and Short lasting unilateral neuralgiform headache with conjunctival injection and tearing (SUNCT), not intractable G44.059 [facility] [id number] [place] [address] 76434 -9844 Jul, Post concussion syndrome F07.81 [facility] [id number] [place] [address] 55749- 2011 Jul, [facility] [id number] [place] [address] 22294- 5165 Oct, [facility] [id number] [place] [address] 07695- 4944 Oct, [facility] [id number] [place] [address] 07427- 6652 Aug, [facility] [id number] [place] [address] 96719- 2251 Aug, Obesity 278.00 [facility] [id number] [place] [address] 86331- 9390 Aug, [facility] [address] [address]- 1147 Jul, Obesity 278.00 and Cervical spondylosis without myelopathy 721.0 [facility] [id number] [address]- 3082 March, [facility] [id number] [address]- 4485 Feb, Cervical spondylosis 721.0 [facility] [address] [facility] [id number] [place] [address]- 8103 Feb, [facility] [id number] [place] [address] 97876- 5362 Feb, [facility] [id number] 5644 Jan, [facility] [id number] [place] [address] 65848- 9354 Jan, [facility] [id number] 1661 Jan, [facility] [id number] [address]- 5146 Jan, [facility] [id number] [address]- 1492 Jan, [facility] [id number] [address]- 3977 Jan, [facility] [id number] [address]- 1666 Dec, [facility] [id number] [address]- 2933 Dec, [facility] [id number] [address]- 6546 Dec, [facility] [id number] [address]- 1480 Dec, [facility] [place] [facility] [address] [id number] [place] [address]- 4325 Nov, [facility] [place] [facility] [address] [id number] [place] [address]- 5495 Nov, [facility] [place] [facility] [address] [id number] [place] [address]- 0630 Nov, [facility] [place] [facility] [address] [id number] [place] [address]- 7331 Nov, [facility] [place] [facility] [address] [id number] [place] [address]- 8625 Nov, [facility] [place] [facility] [address] [id number] [place] [address]- 6700 Nov, [facility] [place] [facility] [address] [id number] [place] [address]- 8813 Nov, [facility] [place] [facility] [address] [id number] [place] [address]- 0317 Nov, [facility] [place] [facility] [address] [id number] [place] [address]- 2966 Oct, [facility] [place] [facility] [address] [id number] [place] [address]- 4531 Oct, [facility] [place] [facility] [address] [id number] [address]- 3817 Sep, [facility] [place] [facility] [address] [id number] [address]- 9557 Sep, [facility] [place] [facility] [address] [id number] [place] [address]- 5789 Sep, [facility] [place] [facility] [address] [id number] [place] [address]- 7078 Sep, [facility] [place] [facility] [address] [id number] [place] [address]- 1860 29 Jul, 2014 [facility] [place] [facility] [address] [id number] [place] [address]- 7854 29 Jul, 2013 [facility] [place] [facility] [address] [id number] [place] [address]- 6163 Jul, 2013 [facility] [place] [facility] [address] [id number] [place] [address]- 9296 Jul, 2013 [facility] [place] [facility] [address] [id number] [place] [address]- 6213 Jul, 2013 [facility] [place] [facility] [address] [id number] [place] [address]- 2544 Jul, 2013 [facility] [place] [facility] [address] [id number] [place] [address]- 8052 Jul, 2013 [facility] [place] [facility] [address] [id number] [place] [address]- 5377 Jul, 2013 [facility] [place] [facility] [address] [id number] [place] [address]- 9971 Jul, [facility] [place] [facility] [address] [id number] [place] [address]- 1146 Jul, [facility] [place] [facility] [address] [id number] [place] [address]- 9853 Jun, [facility] [place] [facility] [address] [id number] [place] [address]- 0972 Jun, [facility] [place] [facility] [address] [id number] [place] [address]- 4729 Jun, [facility] [place] [facility] [address] [id number] [place] [address]- 2493 Jun, [facility] [place] [facility] [address] [id number] [place] [address]- 5831 Jun, [facility] [place] [facility] [address] [id number] [place] [address]- 0489 Jun, [facility] [place] [facility] [address] [id number] [place] [address]- 4331 May, [facility] [place] [facility] [address] [id number] [place] [address]- 2601 May, [facility] [place] [facility] [address] [id number] [place] [address]- 3068 May, [facility] [place] [facility] [address] [id number] [place] [address]- 2636 May, [facility] [place] [facility] [address] [id number] [place] [address]- 2823 May, [facility] [place] [facility] [address] [id number] [place] [address]- 4638 May, [facility] [place] [facility] [address] [id number] [place] [address]- 4810 Apr, [facility] [place] [facility] [address] [id number] [place] [address]- 3594 Apr, [facility] [place] [facility] [address] [id number] [place] [address]- 0973 Apr, [facility] [place] [facility] [address] [id number] [place] [address]- 0599 Apr, [facility] [place] [facility] [address] [id number] [place] [address]- 6778 Apr, [facility] [place] [facility] [address] [id number] [place] [address]- 3350 Apr, [facility] [place] [facility] [address] [id number] [address]- 7333 Apr, [facility] [place] [facility] [address] [id number] [place] [address]- 4762 Apr, [facility] [place] [facility] [address] [id number] [place] [address]- 2568 Apr, [facility] [place] [facility] [address] [id number] [place] [address]- 0518 Apr, [facility] [place] [facility] [address] [id number] [place] [address]- 7134 Apr, [facility] [place] [facility] [address] [id number] [place] [address]- 9858 Apr, [facility] [place] [facility] [address] [id number] [place] [address]- 1460 Apr, [facility] [place] [facility] [address] [id number] [place] [address]- 4937 March, [facility] [place] [facility] [address] [id number] [place] [address]- 9619 March, [facility] [place] [facility] [address] [id number] [place] [address]- 2541 March, [facility] [place] [facility] [address] [id number] [place] [address]- 4642 March, [facility] [place] [facility] [address] [id number] [place] [address]- 9396 March, [facility] [place] [facility] [address] [id number] [place] [address]- 7005 March, [facility] [place] [facility] [address] [id number] [place] [address]- 2269 Feb, [facility] [place] [facility] [address] [id number] [place] [address]- 3810 Feb, [facility] [place] [facility] [address] [id number] [place] [address]- 5858 Feb, [facility] [place] [facility] [address] [id number] [place] [address]- 8235 Feb, [facility] [place] [facility] [address] [id number] [place] [address]- 1661 Feb, [facility] [place] [facility] [address] [id number] [place] [address]- 6523 Feb, [facility] [place] [facility] [address] [id number] [place] [address]- 2892 15 Feb, 2014 [facility] [place] [facility] [address] [id number] [place] [address]- 8824 15 Feb, 2014 [facility] [place] [facility] [address] [id number] [place] [address]- 2217 Feb, [facility] [place] [facility] [address] [id number] [place] [address]- 3564 Feb, [facility] [place] [facility] [address] [id number] [place] [address]- 6187 24 Jan, 2014 [facility] [place] [facility] [address] [id number] [place] [address]- 8315 Jan, [facility] [place] [facility] [address] [id number] [place] [address]- 5897 Jan, [facility] [place] [facility] [address] [id number] [place] [address]- 9282 Jan, [facility] [place] [facility] [address] [id number] [place] [address]- 7951 Dec, [facility] [place] [facility] [address] [id number] [place] [address] Dec, [facility] [place] [facility] [address] [id number] [place] [address] Sep, [facility] [place] [facility] [address] [id number] [place] [address] Sep, [facility] [place] [facility] [address] [id number] [place] [address] Aug, [facility] [place] [facility] [address] [id number] [place] [address] Aug, [facility] [place] [facility] [address] [id number] [place] [address] Aug, [facility] [place] [facility] [address] [id number] [place] [address] Aug, [facility] [place] [facility] [address] [id number] [place] [address] Aug, [facility] [address] [facility] [id number] [place] [address] May, [facility] [address] [facility] [id number] [address] Jan, [facility] [address] [facility] [id number], [place] [address] Jan, [facility] [address] [facility] [id number] [address] Dec, IMMUNIZATIONS No Known Immunizations SOCIAL HISTORY Never Assessed REASON FOR VISIT Controlled Med Refill 03/19/18 PLAN OF CARE VITAL SIGNS MEDICATIONS Medication Instructions Dosage Frequency Start Date End Date Duration Status Ambien 10 mg Orally Once a day 1 tablet at bedtime as needed 24h Aug, 28 days Active Oxycodone HCl 10 mg Orally 4 times a day 1 tablet as needed 6h Feb, 28 days Active RESULTS No Results PROCEDURES No Known procedures INSTRUCTIONS MEDICATIONS ADMINISTERED No Known Medications MEDICAL (GENERAL) HISTORY Type Description Date Medical History Asthma Medical History Hives since 2000 Surgical History spinal fusion 2014 Surgical History Tonsillectomy Surgical History Appendectomy Surgical History section Surgical History epidural anesthesia/injection Surgical History Hemorrhoidecomy with umu Surgical History colonoscopy
--- OUTSIDE RECORDS SUMMARY | 2018-10-18 19:39 | XMS REPORT ---
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 Name Role Phone FLORENCIA HINOJOSA Unavailable PROBLEMS Type Condition ICD9-CM Code MDN32-JP Code Onset Dates Condition Status SNOMED Code Problem Arthritis M19.90 Active 6918779 Problem Chronic fatigue R53.82 Active 36531128 Problem Intractable migraine without aura and without status migrainosus G43.019 Active 209454316 Problem Memory loss R41.3 Active 21545349 Problem Other chronic pain G89.29 Active 97867245 Problem Mental status change resolved Z86.59 Active [id number] ALLERGIES No Information ENCOUNTERS Encounter Location Date Diagnosis [facility] [id number] [place] [address] 64369- 3779 May, Intractable migraine without aura and without status migrainosus G43.019 [facility] [address] 92864- 0815 May, 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 [facility] [id number] [place] [address] 10171- 9564 May, 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 [facility] [id number] [place] [address] 24318- 5610 May, 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 [facility] [id number] [place] [address] 03239 -2378 May, Pain in finger of left hand M79.645 [facility] [id number] [place] [address] 15118- 7258 Apr, Intractable migraine without aura and without status migrainosus G43.019 [facility] [address] 07946- 9568 Apr, Chronic fatigue R53.82 and Dizziness R42 [facility] [id number] [place] [address] 59207- 0066 March, [facility] [id number] [place] [id number] March, Intractable migraine without aura and without status migrainosus G43.019 [facility] [id number] [place] [address] 58287- 9196 March, [facility] [id number] [place] [address] 77050- 0095 March, [facility] [id number] [place] [address] 86643- 6875 Feb, Intractable migraine without aura and without status migrainosus G43.019 [facility] [id number] [place] [address] 65003- 6865 Feb, Memory loss R41.3 and 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 [facility] [id number] [place] [address] 52626- 3433 Feb, Intractable migraine without aura and without status migrainosus G43.019 [facility] [id number] [place] [address] 65567- 8346 Jan, Intractable migraine without aura and without status migrainosus G43.019 [facility] [id number] [place] [address] 38506- 7236 Dec, [facility] [id number] [place] [address] 38581- 1804 Dec, Intractable migraine without aura and without status migrainosus G43.019 [facility] [id number] [place] [address] 99216- 3716 Nov, [facility] [id number] [place] [address] 08256- 8761 Nov, Chronic fatigue R53.82 and Family history of thyroid disease Z83.49 [facility] [id number] [place] [address] 96840- 8346 Nov, Arthritis M19.90 ; Chronic fatigue R53.82 ; Family history of thyroid disease Z83.49 ; Grade IV hemorrhoids K64.3 and Other chronic pain G89.29 [facility] [id number] [place] [address] 56674 2546 Nov, Intractable migraine without aura and without status migrainosus G43.019 [facility] [id number] [place] [address] 40720- 2966 Oct, [facility] [id number] [place] [address] 33204- 5646 Oct, Intractable migraine without aura and without status migrainosus G43.019 [facility] [id number] [place] [address] 54717- 0676 Oct, [facility] [id number] [place] [address] 05880 2546 Oct, [facility] [id number] [place] [address] 72220- 7906 Sep, Tremors of nervous system R25.1 [facility] [id number] [place] [address] 07561 2546 Sep, [facility] [id number] [place] [address] 67825 2546 Sep, Intractable migraine without aura and without status migrainosus G43.019 [facility] [id number] [place] [address] 41373 2546 Sep, [facility] [id number] [place] [address] 67400 2546 Sep, [facility] [id number] [place] [address] 25296- 2546 Sep, Acute medial meniscus tear of right knee, initial encounter S83.241A and Acute lateral meniscus tear of left knee, initial encounter S83.282A [facility] [id number] [place] [address] 19114- 6226 Aug, Intractable migraine without aura and without status migrainosus G43.019 [facility] [id number] [place] [address] 44123- 2546 Aug, [facility] [id number] [place] [address] 54522- 2546 Aug, [facility] [id number] [place] [address] 73672- 1786 Jul, [facility] [id number] [place] [address] 08035- 3626 Jul, [facility] [id number] [place] [address] 62870- 6605 Jul, Intractable migraine without aura and without status migrainosus G43.019 ; Memory loss R41.3 ; Mental status change resolved Z86.59 ; Other chronic pain G89.29 and Pain in right knee M25.561 [facility] [id number] [place] [address] 28403- 2130 Jul, [facility] [id number] [place] [address] 03157- 8399 Jun, Tremors of nervous system R25.1 and Pelvic pain R10.2 [facility] [id number] [place] [address] 61915- 6990 Jun, [facility] [id number] [place] [address] 36951- 2546 Jun, [facility] [id number] [place] [address] 43525- 9856 Jun, [facility] [id number] [place] [address] 00208- 6980 May, [facility] [id number] [place] [address] 60017 2546 May, [facility] [address] [address]- 6856 May, Kidney pain N23 [facility] [address] [address] 2546 May, Pelvic pain R10.2 [facility] [id number] [place] [address] 30817 -3051 May, Wasp sting, accidental or unintentional, initial encounter T63.461A and Allergic contact dermatitis due to other agents L23.89 [facility] [id number] [place] [address] 19699- 3968 May, [facility] [id number] [place] [address] 77053- 3701 May, Pelvic pain R10.2 [facility] [id number] [place] [address] 00058 2545 May, [facility] [address] [place] [address] 02108 2541 Apr, Tremors of nervous system R25.1 ; Blood in stool, gabby K92.1 ; 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 ; Memory loss R41.3 and Intractable migraine without aura and without status migrainosus G43.019 [facility] [address], [place] [address] 2545 Apr, Blood in stool, gabby K92.1 [facility] [id number] [address] 2546 Apr, Tremors of nervous system R25.1 ; 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 ; Memory loss R41.3 and Intractable migraine without aura and without status migrainosus G43.019 [facility] [address] [address] 2546 Apr, [facility] [id number] [place] [address] 90945- 4845 Apr, Tremor R25.1 [facility] [id number] [place] [address] 22304- 0458 March, [facility] [address] 50288- 2977 March, Cyst of right ovary N83.201 [facility] [address] 32099- 5856 March, Blood in stool, gabby K92.1 and Other fatigue R53.83 [facility] [id number] [place] [address] 75281- 4370 March, Cyst of right ovary N83.201 [facility] [id number] [place] [address] 68831- 3676 Feb, [facility] [address] 21817- 5551 Feb, [facility] [address] 28623- 5654 Feb, Cyst of right ovary N83.201 and Right lower quadrant abdominal pain R10.31 [facility] [id number] [place] [address] 12293- 6801 Jan, Pelvic pain R10.2 [facility] [id number] [place] [address] 81174- 0236 Jan, [facility] [id number] [place] [address] 75749- 4900 Jan, [facility] [id number] [place] [address] 58903- 9729 Jan, Left groin pain R10.30 [facility] [id number] [place] [address] 21799- 9349 Dec, [facility] [id number] [place] [address] 02345- 8600 Dec, Pelvic pain R10.2 and Lumbosacral neuritis M54.17 [facility] [id number] [place] [address] 84159- 1356 Dec, [facility] [id number] [place] [address] 2471 Dec, Lymph node enlargement R59.9 [facility] [id number] [place] [address] 16900- 6393 Nov, Lymph node enlargement R59.9 [facility] [id number] [place] [address] 30439- 2583 Nov, [facility] [address] 68332- 4289 Nov, Left groin pain R10.30 [facility] [id number] [place] [address] 07576- 3483 Nov, Varicose vein of leg I83.90 ; Essential hypertension I10 and Short lasting unilateral neuralgiform headache with conjunctival injection and tearing (SUNCT), not intractable G44.059 [facility] [id number] [place] [address] 66984 -1515 Jul, Post concussion syndrome F07.81 [facility] [id number] [place] [address] 28393- 0361 Jul, [facility] [id number] [place] [address] 66278- 1441 Oct, [facility] [id number] [place] [address] 60225- 7436 Oct, [facility] [id number] [place] [address] 06269- 0283 Aug, [facility] [id number] [place] [address] 45061- 4176 Aug, Obesity 278.00 [facility] [id number] [place] [address] 80085- 3118 Aug, [facility] [address] [address]- 2704 Jul, Obesity 278.00 and Cervical spondylosis without myelopathy 721.0 [facility] [address], [place] [address]- 9464 March, [facility] [address] [address]- 0360 Feb, Cervical spondylosis 721.0 [facility] [address] [facility] [id number] [place] [address]- 1552 Feb, [facility] [id number] [place] [address] 77727- 9560 Feb, [facility] [address] 3504 Jan, [facility] [address] [place] [address] 02198- 5649 Jan, [facility] [address] 0673 Jan, [facility] [address] [address]- 6011 Jan, [facility] [address], [place] [address]- 2923 Jan, [facility] [address], [place] [address]- 2794 Jan, [facility] [address], [place] [address]- 0087 Dec, [facility] [address], [place] [address]- 2856 Dec, [facility] [address], [place] [address]- 8656 Dec, [facility] [address], [place] [address]- 9357 Dec, [facility] [place] [facility] [address] [id number] [place] [address]- 2685 Nov, [facility] [place] [facility] [address] [id number] [place] [address]- 8443 Nov, [facility] [place] [facility] [address] [id number] [place] [address]- 7158 Nov, [facility] [place] [facility] [address] [id number] [place] [address]- 7350 Nov, [facility] [place] [facility] [address] [id number] [place] [address]- 9661 Nov, [facility] [place] [facility] [address] [id number] [place] [address]- 8438 Nov, [facility] [place] [facility] [address] [id number] [place] [address]- 0004 Nov, [facility] [place] [facility] [address] [id number] [place] [address]- 0740 Nov, [facility] [place] [facility] [address] [id number] [place] [address]- 1158 Oct, [facility] [place] [facility] [address] [id number] [place] [address]- 4432 Oct, [facility] [place] [facility] [address] [id number] [address]- 4916 Sep, [facility] [place] [facility] [address] [id number], [place] [address]- 0042 Sep, [facility] [place] [facility] [address] [id number] [place] [address]- 9412 Sep, [facility] [place] [facility] [address] [id number] [place] [address]- 8866 Sep, [facility] [place] [facility] [address] [id number] [place] [address]- 6076 29 Jul, 2014 [facility] [place] [facility] [address] [id number] [place] [address]- 9754 29 Jul, 2013 [facility] [place] [facility] [address] [id number] [place] [address]- 3098 Jul, 2013 [facility] [place] [facility] [address] [id number] [place] [address]- 6946 Jul, 2013 [facility] [place] [facility] [address] [id number] [place] [address]- 3274 Jul, 2013 [facility] [place] [facility] [address] [id number] [place] [address]- 2544 Jul, 2013 [facility] [place] [facility] [address] [id number] [place] [address]- 2726 Jul, 2013 [facility] [place] [facility] [address] [id number] [place] [address]- 8896 Jul, 2013 [facility] [place] [facility] [address] [id number] [place] [address]- 8728 Jul, [facility] [place] [facility] [address] [id number] [place] [address]- 0486 Jul, [facility] [place] [facility] [address] [id number] [place] [address]- 2901 Jun, [facility] [place] [facility] [address] [id number] [place] [address]- 6985 Jun, [facility] [place] [facility] [address] [id number] [place] [address]- 8988 Jun, [facility] [place] [facility] [address] [id number] [place] [address]- 6873 Jun, [facility] [place] [facility] [address] [id number] [place] [address]- 1721 Jun, [facility] [place] [facility] [address] [id number] [place] [address]- 0327 Jun, [facility] [place] [facility] [address] [id number] [place] [address]- 3058 May, [facility] [place] [facility] [address] [id number] [place] [address]- 9948 May, [facility] [place] [facility] [address] [id number] [place] [address]- 4697 May, [facility] [place] [facility] [address] [id number] [place] [address]- 3955 May, [facility] [place] [facility] [address] [id number] [place] [address]- 3428 May, [facility] [place] [facility] [address] [id number] [place] [address]- 3162 May, [facility] [place] [facility] [address] [id number] [place] [address]- 0613 Apr, [facility] [place] [facility] [address] [id number] [place] [address]- 9283 Apr, [facility] [place] [facility] [address] [id number] [place] [address]- 9627 Apr, [facility] [place] [facility] [address] [id number] [place] [address]- 2665 Apr, [facility] [place] [facility] [address] [id number] [place] [address]- 6734 Apr, [facility] [place] [facility] [address] [id number] [place] [address]- 5394 Apr, [facility] [place] [facility] [address] [id number], [place] [address]- 1499 Apr, [facility] [place] [facility] [address] [id number] [place] [address]- 5044 Apr, [facility] [place] [facility] [address] [id number] [place] [address]- 7091 Apr, [facility] [place] [facility] [address] [id number] [place] [address]- 4465 Apr, [facility] [place] [facility] [address] [id number] [place] [address]- 5226 Apr, [facility] [place] [facility] [address] [id number] [place] [address]- 2790 Apr, [facility] [place] [facility] [address] [id number] [place] [address]- 0910 Apr, [facility] [place] [facility] [address] [id number] [place] [address]- 9620 March, [facility] [place] [facility] [address] [id number] [place] [address]- 4259 March, [facility] [place] [facility] [address] [id number] [place] [address]- 8814 March, [facility] [place] [facility] [address] [id number] [place] [address]- 5364 March, [facility] [place] [facility] [address] [id number] [place] [address]- 4279 March, [facility] [place] [facility] [address] [id number] [place] [address]- 5796 March, [facility] [place] [facility] [address] [id number] [place] [address]- 7243 Feb, [facility] [place] [facility] [address] [id number] [place] [address]- 9558 Feb, [facility] [place] [facility] [address] [id number] [place] [address]- 5355 Feb, [facility] [place] [facility] [address] [id number] [place] [address]- 7259 Feb, [facility] [place] [facility] [address] [id number] [place] [address]- 2856 Feb, [facility] [place] [facility] [address] [id number] [place] [address]- 5677 Feb, [facility] [place] [facility] [address] [id number] [place] [address]- 5287 15 Feb, 2014 [facility] [place] [facility] [address] [id number] [place] [address]- 9171 15 Feb, 2014 [facility] [place] [facility] [address] [id number] [place] [address]- 6310 Feb, [facility] [place] [facility] [address] [id number] [place] [address]- 1500 Feb, [facility] [place] [facility] [address] [id number] [place] [address]- 2254 24 Jan, 2014 [facility] [place] [facility] [address] [id number] [place] [address]- 6197 Jan, [facility] [place] [facility] [address] [id number] [place] [address]- 1326 Jan, [facility] [place] [facility] [address] [id number] [place] [address]- 2578 Jan, [facility] [place] [facility] [address] [id number] [place] [address]- 1394 Dec, [facility] [place] [facility] [address] [id number] [place] [address]- 0963 Dec, [facility] [place] [facility] [address] [id number] [place] [address]- 7728 Sep, [facility] [place] [facility] [address] [id number] [place] [address]- 6489 Sep, [facility] [place] [facility] [address] [id number] [place] [address] Aug, [facility] [place] [facility] [address] [id number] [place] [address] Aug, [facility] [place] [facility] [address] [id number] [place] [address] Aug, [facility] [place] [facility] [address] [id number] [place] [address] Aug, [facility] [place] [facility] [address] [id number] [place] [address] Aug, [facility] [address] [facility] [id number] [place] [address] May, [facility] [address] [facility] [id number], [place] [address] Jan, [facility] [address] [facility] [id number], [place] [address] Jan, [facility] [address] [facility] [id number], [place] [address] Dec, IMMUNIZATIONS No Known Immunizations SOCIAL HISTORY [...]
--- OUTSIDE RECORDS SUMMARY | 2018-10-18 19:39 | XMS REPORT ---
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 Name Role Phone FLORENCIA HINOJOSA Unavailable PROBLEMS Type Condition ICD9-CM Code YLT33-MS Code Onset Dates Condition Status SNOMED Code Problem Arthritis M19.90 Active 7495828 Problem Chronic fatigue R53.82 Active 82175141 Problem Intractable migraine without aura and without status migrainosus G43.019 Active 073984729 Problem Memory loss R41.3 Active 12784782 Problem Other chronic pain G89.29 Active 50187826 Problem Mental status change resolved Z86.59 Active [id number] ALLERGIES No Information ENCOUNTERS Encounter Location Date Diagnosis [facility] [id number] [place] [address] 22009- 2358 May, Intractable migraine without aura and without status migrainosus G43.019 [facility] [address] 76053- 5149 May, 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 [facility] [id number] [place] [address] 45150- 6551 May, 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 [facility] [id number] [place] [address] 10134- 1623 May, 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 [facility] [id number] [place] [address] 34379 -4894 May, Pain in finger of left hand M79.645 [facility] [id number] [place] [address] 73611- 9269 Apr, Intractable migraine without aura and without status migrainosus G43.019 [facility] [address] 82171- 7570 Apr, Chronic fatigue R53.82 and Dizziness R42 [facility] [id number] [place] [address] 35936- 5906 March, [facility] [id number] [place] [id number] March, Intractable migraine without aura and without status migrainosus G43.019 [facility] [id number] [place] [address] 73164- 5266 March, [facility] [id number] [place] [address] 83758- 7773 March, [facility] [id number] [place] [address] 14023- 1812 Feb, Intractable migraine without aura and without status migrainosus G43.019 [facility] [id number] [place] [address] 68584- 0944 Feb, Memory loss R41.3 and 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 [facility] [id number] [place] [address] 68102- 8468 Feb, Intractable migraine without aura and without status migrainosus G43.019 [facility] [id number] [place] [address] 27250- 6046 Jan, Intractable migraine without aura and without status migrainosus G43.019 [facility] [id number] [place] [address] 11544- 8856 Dec, [facility] [id number] [place] [address] 02741- 9820 Dec, Intractable migraine without aura and without status migrainosus G43.019 [facility] [id number] [place] [address] 13871- 2356 Nov, [facility] [id number] [place] [address] 44133- 5760 Nov, Chronic fatigue R53.82 and Family history of thyroid disease Z83.49 [facility] [id number] [place] [address] 15401- 2146 Nov, Arthritis M19.90 ; Chronic fatigue R53.82 ; Family history of thyroid disease Z83.49 ; Grade IV hemorrhoids K64.3 and Other chronic pain G89.29 [facility] [id number] [place] [address] 96417 2546 Nov, Intractable migraine without aura and without status migrainosus G43.019 [facility] [id number] [place] [address] 61969- 0056 Oct, [facility] [id number] [place] [address] 49297- 0146 Oct, Intractable migraine without aura and without status migrainosus G43.019 [facility] [id number] [place] [address] 09152- 2266 Oct, [facility] [id number] [place] [address] 34485 2546 Oct, [facility] [id number] [place] [address] 51079- 5796 Sep, Tremors of nervous system R25.1 [facility] [id number] [place] [address] 76960 2546 Sep, [facility] [id number] [place] [address] 01076 2546 Sep, Intractable migraine without aura and without status migrainosus G43.019 [facility] [id number] [place] [address] 02929 2546 Sep, [facility] [id number] [place] [address] 83085 2546 Sep, [facility] [id number] [place] [address] 37817- 2546 Sep, Acute medial meniscus tear of right knee, initial encounter S83.241A and Acute lateral meniscus tear of left knee, initial encounter S83.282A [facility] [id number] [place] [address] 50487- 3666 Aug, Intractable migraine without aura and without status migrainosus G43.019 [facility] [id number] [place] [address] 16525- 2546 Aug, [facility] [id number] [place] [address] 59597- 2546 Aug, [facility] [id number] [place] [address] 28272- 0446 Jul, [facility] [id number] [place] [address] 06918- 6156 Jul, [facility] [id number] [place] [address] 58281- 8658 Jul, Intractable migraine without aura and without status migrainosus G43.019 ; Memory loss R41.3 ; Mental status change resolved Z86.59 ; Other chronic pain G89.29 and Pain in right knee M25.561 [facility] [id number] [place] [address] 75712- 2221 Jul, [facility] [id number] [place] [address] 62616- 4902 Jun, Tremors of nervous system R25.1 and Pelvic pain R10.2 [facility] [id number] [place] [address] 51623- 3184 Jun, [facility] [id number] [place] [address] 45579- 2546 Jun, [facility] [id number] [place] [address] 05422- 7936 Jun, [facility] [id number] [place] [address] 77749- 8456 May, [facility] [id number] [place] [address] 66702 2546 May, [facility] [address] [address]- 5856 May, Kidney pain N23 [facility] [address] [address] 2546 May, Pelvic pain R10.2 [facility] [id number] [place] [address] 53424 -1312 May, Wasp sting, accidental or unintentional, initial encounter T63.461A and Allergic contact dermatitis due to other agents L23.89 [facility] [id number] [place] [address] 80693- 8138 May, [facility] [id number] [place] [address] 02857- 9570 May, Pelvic pain R10.2 [facility] [id number] [place] [address] 26689 2549 May, [facility] [id number] [place] [address] 77934 2540 Apr, Tremors of nervous system R25.1 ; Blood in stool, gabby K92.1 ; 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 ; Memory loss R41.3 and Intractable migraine without aura and without status migrainosus G43.019 [facility] [address] [address] 2548 Apr, Blood in stool, gabby K92.1 [facility] [id number] [address] 2546 Apr, Tremors of nervous system R25.1 ; 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 ; Memory loss R41.3 and Intractable migraine without aura and without status migrainosus G43.019 [facility] [address] [address] 2546 Apr, [facility] [id number] [place] [address] 14330- 3673 Apr, Tremor R25.1 [facility] [id number] [place] [address] 70789- 6363 March, [facility] [address] 18971- 5332 March, Cyst of right ovary N83.201 [facility] [address] 91286- 7213 March, Blood in stool, gabby K92.1 and Other fatigue R53.83 [facility] [id number] [place] [address] 99036- 5331 March, Cyst of right ovary N83.201 [facility] [id number] [place] [address] 99024- 6857 Feb, [facility] [address] 74623- 7458 Feb, [facility] [address] 65084- 9884 Feb, Cyst of right ovary N83.201 and Right lower quadrant abdominal pain R10.31 [facility] [id number] [place] [address] 76046- 1778 Jan, Pelvic pain R10.2 [facility] [id number] [place] [address] 63728- 7939 Jan, [facility] [id number] [place] [address] 68491- 9916 Jan, [facility] [id number] [place] [address] 03228- 6048 Jan, Left groin pain R10.30 [facility] [id number] [place] [address] 27179- 6460 Dec, [facility] [id number] [place] [address] 68195- 0805 Dec, Pelvic pain R10.2 and Lumbosacral neuritis M54.17 [facility] [id number] [place] [address] 03504- 3735 Dec, [facility] [id number] [place] [id number] 9670 Dec, Lymph node enlargement R59.9 [facility] [id number] [place] [address] 34389- 5764 Nov, Lymph node enlargement R59.9 [facility] [id number] [place] [address] 27915- 2356 Nov, [facility] [address] 21455- 2264 Nov, Left groin pain R10.30 [facility] [id number] [place] [address] 46292- 8113 Nov, Varicose vein of leg I83.90 ; Essential hypertension I10 and Short lasting unilateral neuralgiform headache with conjunctival injection and tearing (SUNCT), not intractable G44.059 [facility] [id number] [place] [address] 25436 -1597 Jul, Post concussion syndrome F07.81 [facility] [id number] [place] [address] 37305- 7135 Jul, [facility] [id number] [place] [address] 59697- 0279 Oct, [facility] [id number] [place] [address] 96062- 5018 Oct, [facility] [id number] [place] [address] 97533- 1611 Aug, [facility] [id number] [place] [address] 26740- 6286 Aug, Obesity 278.00 [facility] [id number] [place] [address] 47420- 7974 Aug, [facility] [address] [address]- 0934 Jul, Obesity 278.00 and Cervical spondylosis without myelopathy 721.0 [facility] [address] [address]- 7688 March, [facility] [address] [address]- 3605 Feb, Cervical spondylosis 721.0 [facility] [address] [facility] [id number] [place] [address]- 2028 Feb, [facility] [id number] [place] [address] 84520- 6690 Feb, [facility] [id number] 4173 Jan, [facility] [id number] [place] [address] 74668- 8230 Jan, [facility] [id number] 3126 Jan, [facility] [id number], [place] [address]- 5284 Jan, [facility] [id number], [place] [address]- 7529 Jan, [facility] [address], [place] [address]- 7664 Jan, [facility] [address], [place] [address]- 9240 Dec, [facility] [id number], [place] [address]- 8874 Dec, [facility] [address], [place] [address]- 4936 Dec, [facility] [address], [place] [address]- 7726 Dec, [facility] [place] [facility] [address] [id number] [place] [address]- 1729 Nov, [facility] [place] [facility] [address] [id number] [place] [address]- 5311 Nov, [facility] [place] [facility] [address] [id number] [place] [address]- 2653 Nov, [facility] [place] [facility] [address] [id number] [place] [address]- 8613 Nov, [facility] [place] [facility] [address] [id number] [place] [address]- 1683 Nov, [facility] [place] [facility] [address] [id number] [place] [address]- 0820 Nov, [facility] [place] [facility] [address] [id number] [place] [address]- 3468 Nov, [facility] [place] [facility] [address] [id number] [place] [address]- 2108 Nov, [facility] [place] [facility] [address] [id number] [place] [address]- 0154 Oct, [facility] [place] [facility] [address] [id number] [place] [address]- 6657 Oct, [facility] [place] [facility] [address] [id number], [place] [address]- 5754 Sep, [facility] [place] [facility] [address] [id number], [place] [address]- 6630 Sep, [facility] [place] [facility] [address] [id number] [place] [address]- 2484 Sep, [facility] [place] [facility] [address] [id number] [place] [address]- 0456 Sep, [facility] [place] [facility] [address] [id number] [place] [address]- 0949 29 Jul, 2014 [facility] [place] [facility] [address] [id number] [place] [address]- 6859 29 Jul, 2013 [facility] [place] [facility] [address] [id number] [place] [address]- 7409 Jul, 2013 [facility] [place] [facility] [address] [id number] [place] [address]- 6796 Jul, 2013 [facility] [place] [facility] [address] [id number] [place] [address]- 5856 Jul, 2013 [facility] [place] [facility] [address] [id number] [place] [address]- 2545 Jul, 2013 [facility] [place] [facility] [address] [id number] [place] [address]- 8496 Jul, 2013 [facility] [place] [facility] [address] [id number] [place] [address]- 3257 Jul, 2013 [facility] [place] [facility] [address] [id number] [place] [address]- 1346 Jul, [facility] [place] [facility] [address] [id number] [place] [address]- 5188 Jul, [facility] [place] [facility] [address] [id number] [place] [address]- 2334 Jun, [facility] [place] [facility] [address] [id number] [place] [address]- 2041 Jun, [facility] [place] [facility] [address] [id number] [place] [address]- 4299 Jun, [facility] [place] [facility] [address] [id number] [place] [address]- 2688 Jun, [facility] [place] [facility] [address] [id number] [place] [address]- 4266 Jun, [facility] [place] [facility] [address] [id number] [place] [address]- 6530 Jun, [facility] [place] [facility] [address] [id number] [place] [address]- 6216 May, [facility] [place] [facility] [address] [id number] [place] [address]- 7041 May, [facility] [place] [facility] [address] [id number] [place] [address]- 1826 May, [facility] [place] [facility] [address] [id number] [place] [address]- 7767 May, [facility] [place] [facility] [address] [id number] [place] [address]- 1859 May, [facility] [place] [facility] [address] [id number] [place] [address]- 3786 May, [facility] [place] [facility] [address] [id number] [place] [address]- 5872 Apr, [facility] [place] [facility] [address] [id number] [place] [address]- 6852 Apr, [facility] [place] [facility] [address] [id number] [place] [address]- 2296 Apr, [facility] [place] [facility] [address] [id number] [place] [address]- 7669 Apr, [facility] [place] [facility] [address] [id number] [place] [address]- 0611 Apr, [facility] [place] [facility] [address] [id number] [place] [address]- 7041 Apr, [facility] [place] [facility] [address] [id number], [place] [address]- 5533 Apr, [facility] [place] [facility] [address] [id number] [place] [address]- 3996 Apr, [facility] [place] [facility] [address] [id number] [place] [address]- 8513 Apr, [facility] [place] [facility] [address] [id number] [place] [address]- 5346 Apr, [facility] [place] [facility] [address] [id number] [place] [address]- 1651 Apr, [facility] [place] [facility] [address] [id number] [place] [address]- 3450 Apr, [facility] [place] [facility] [address] [id number] [place] [address]- 5033 Apr, [facility] [place] [facility] [address] [id number] [place] [address]- 3982 March, [facility] [place] [facility] [address] [id number] [place] [address]- 5748 March, [facility] [place] [facility] [address] [id number] [place] [address]- 0662 March, [facility] [place] [facility] [address] [id number] [place] [address]- 5956 March, [facility] [place] [facility] [address] [id number] [place] [address]- 1270 March, [facility] [place] [facility] [address] [id number] [place] [address]- 7219 March, [facility] [place] [facility] [address] [id number] [place] [address]- 4641 Feb, [facility] [place] [facility] [address] [id number] [place] [address]- 7492 Feb, [facility] [place] [facility] [address] [id number] [place] [address]- 4939 Feb, [facility] [place] [facility] [address] [id number] [place] [address]- 9553 Feb, [facility] [place] [facility] [address] [id number] [place] [address]- 7463 Feb, [facility] [place] [facility] [address] [id number] [place] [address]- 7832 Feb, [facility] [place] [facility] [address] [id number] [place] [address]- 6157 15 Feb, 2014 [facility] [place] [facility] [address] [id number] [place] [address]- 8227 15 Feb, 2014 [facility] [place] [facility] [address] [id number] [place] [address]- 0366 Feb, [facility] [place] [facility] [address] [id number] [place] [address]- 8860 Feb, [facility] [place] [facility] [address] [id number] [place] [address]- 1012 24 Jan, 2014 [facility] [place] [facility] [address] [id number] [place] [address]- 9995 Jan, [facility] [place] [facility] [address] [id number] [place] [address]- 2692 Jan, [facility] [place] [facility] [address] [id number] [place] [address]- 6099 Jan, [facility] [place] [facility] [address] [id number] [place] [address]- 8858 Dec, [facility] [place] [facility] [address] [id number] [place] [address] Dec, [facility] [place] [facility] [address] [id number] [place] [address] Sep, [facility] [place] [facility] [address] [id number] [place] [address] Sep, [facility] [place] [facility] [address] [id number] [place] [address] Aug, [facility] [place] [facility] [address] [id number] [place] [address] Aug, [facility] [place] [facility] [address] [id number] [place] [address] Aug, [facility] [place] [facility] [address] [id number] [place] [address] Aug, [facility] [place] [facility] [address] [id number] [place] [address] Aug, [facility] [address] [facility] [id number] [place] [address] May, [facility] [address] [id number] [address] Jan, [facility] [address] [facility] [id number], [place] [address] Jan, [facility] [address] [facility] [id number], [place] [address] Dec, IMMUNIZATIONS No Known Immunizations SOCIAL HISTORY Never Assessed REASON FOR VISIT Medication PLAN OF CARE VITAL SIGNS MEDICATIONS Unknown [...]
--- OUTSIDE RECORDS SUMMARY | 2018-10-18 19:40 | XMS REPORT ---
Author Author FLORENCIA HINOJOSA Organization [facility] Address [address] [place] [address] Care Team Providers Care Maintenance Helper Name Role Phone FLORENCIA HINOJOSA Unavailable PROBLEMS Type Condition ICD9-CM Code YNT89-AK Code Onset Dates Condition Status SNOMED Code Problem Arthritis M19.90 Active 5471817 Problem Chronic fatigue R53.82 Active 44158435 Problem Intractable migraine without aura and without status migrainosus G43.019 Active 741942024 Problem Memory loss R41.3 Active 91808991 Problem Other chronic pain G89.29 Active 52087511 Problem Mental status change resolved Z86.59 Active 232575433 ALLERGIES No Information ENCOUNTERS Encounter Location Date Diagnosis [facility] [id number] [place] [address] 32417- 7681 May, Intractable migraine without aura and without status migrainosus G43.019 [facility] [address] 74028- 5320 May, 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 [facility] [id number] [place] [address] 53899- 0060 May, 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 [facility] [id number] [place] [address] 71807- 5848 May, 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 [facility] [id number] [place] [address] 33335 -8390 May, Pain in finger of left hand M79.645 [facility] [id number] [place] [address] 27743- 0146 Apr, Intractable migraine without aura and without status migrainosus G43.019 [facility] [address] 84641- 5619 Apr, Chronic fatigue R53.82 and Dizziness R42 [facility] [id number] [place] [address] 90864- 3546 March, [facility] [id number] [place] [id number] March, Intractable migraine without aura and without status migrainosus G43.019 [facility] [id number] [place] [address] 17828- 3916 March, [facility] [id number] [place] [address] 91673- 4138 March, [facility] [id number] [place] [address] 28600- 5649 Feb, Intractable migraine without aura and without status migrainosus G43.019 [facility] [id number] [place] [address] 53791- 3581 Feb, Memory loss R41.3 and 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 [facility] [id number] [place] [address] 67774- 1648 Feb, Intractable migraine without aura and without status migrainosus G43.019 [facility] [id number] [place] [address] 05408- 7166 Jan, Intractable migraine without aura and without status migrainosus G43.019 [facility] [id number] [place] [address] 85332- 1256 Dec, [facility] [id number] [place] [address] 59036- 5384 Dec, Intractable migraine without aura and without status migrainosus G43.019 [facility] [id number] [place] [address] 38354- 2286 Nov, [facility] [id number] [place] [address] 02386- 9178 Nov, Chronic fatigue R53.82 and Family history of thyroid disease Z83.49 [facility] [id number] [place] [address] 14663- 8946 Nov, Arthritis M19.90 ; Chronic fatigue R53.82 ; Family history of thyroid disease Z83.49 ; Grade IV hemorrhoids K64.3 and Other chronic pain G89.29 [facility] [id number] [place] [address] 17390 2546 Nov, Intractable migraine without aura and without status migrainosus G43.019 [facility] [id number] [place] [address] 41384- 6836 Oct, [facility] [id number] [place] [address] 25008- 0346 Oct, Intractable migraine without aura and without status migrainosus G43.019 [facility] [id number] [place] [address] 93825- 8216 Oct, [facility] [id number] [place] [address] 23853 2546 Oct, [facility] [id number] [place] [address] 82203- 1756 Sep, Tremors of nervous system R25.1 [facility] [id number] [place] [address] 81748 2546 Sep, [facility] [id number] [place] [address] 90246 2546 Sep, Intractable migraine without aura and without status migrainosus G43.019 [facility] [id number] [place] [address] 48575 2546 Sep, [facility] [id number] [place] [address] 00675 2546 Sep, [facility] [id number] [place] [address] 22194- 2546 Sep, Acute medial meniscus tear of right knee, initial encounter S83.241A and Acute lateral meniscus tear of left knee, initial encounter S83.282A [facility] [id number] [place] [address] 84055- 0966 Aug, Intractable migraine without aura and without status migrainosus G43.019 [facility] [id number] [place] [address] 10883- 2546 Aug, [facility] [id number] [place] [address] 52173- 2546 Aug, [facility] [id number] [place] [address] 13412- 7276 Jul, [facility] [id number] [place] [address] 64806- 2596 Jul, [facility] [id number] [place] [address] 36971- 1655 Jul, Intractable migraine without aura and without status migrainosus G43.019 ; Memory loss R41.3 ; Mental status change resolved Z86.59 ; Other chronic pain G89.29 and Pain in right knee M25.561 [facility] [id number] [place] [address] 82511- 3601 Jul, [facility] [id number] [place] [address] 94709- 3756 Jun, Tremors of nervous system R25.1 and Pelvic pain R10.2 [facility] [id number] [place] [address] 61655- 0999 Jun, [facility] [id number] [place] [address] 02103- 2546 Jun, [facility] [id number] [place] [address] 47594- 0686 Jun, [facility] [id number] [place] [address] 80486- 6922 May, [facility] [id number] [place] [address] 14841 2546 May, [facility] [id number] [address]- 8306 May, Kidney pain N23 [facility] [id number] [address] 2546 May, Pelvic pain R10.2 [facility] [id number] [place] [address] 41169 -4460 May, Wasp sting, accidental or unintentional, initial encounter T63.461A and Allergic contact dermatitis due to other agents L23.89 [facility] [id number] [place] [address] 97327- 8939 May, [facility] [id number] [place] [address] 71531- 6365 May, Pelvic pain R10.2 [facility] [id number] [place] [address] 66533 2541 May, [facility] [id number] [place] [address] 38364 2543 Apr, Tremors of nervous system R25.1 ; Blood in stool, gabby K92.1 ; 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 ; Memory loss R41.3 and Intractable migraine without aura and without status migrainosus G43.019 [facility] [id number] [address] 2543 Apr, Blood in stool, gabby K92.1 [facility] [id number] [address] 2546 Apr, Tremors of nervous system R25.1 ; 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 ; Memory loss R41.3 and Intractable migraine without aura and without status migrainosus G43.019 [facility] [address] [address] 2546 Apr, [facility] [id number] [place] [address] 69223- 4315 Apr, Tremor R25.1 [facility] [id number] [place] [address] 85425- 3693 March, [facility] [address] 25104- 3400 March, Cyst of right ovary N83.201 [facility] [address] 00462- 2660 March, Blood in stool, gabby K92.1 and Other fatigue R53.83 [facility] [id number] [place] [address] 68726- 2881 March, Cyst of right ovary N83.201 [facility] [id number] [place] [address] 88920- 3970 Feb, [facility] [address] 63875- 4455 Feb, [facility] [address] 88294- 9000 Feb, Cyst of right ovary N83.201 and Right lower quadrant abdominal pain R10.31 [address] [facility] [id number] [place] [address] 59763- 4386 Jan, Pelvic pain R10.2 [facility] [id number] [place] [address] 12447- 6032 Jan, [facility] [id number] [place] [address] 32507- 8215 Jan, [facility] [id number] [place] [address] 28906- 3760 Jan, Left groin pain R10.30 [facility] [id number] [place] [address] 73799- 5877 Dec, [facility] [id number] [place] [address] 21186- 8215 Dec, Pelvic pain R10.2 and Lumbosacral neuritis M54.17 [facility] [id number] [place] [address] 53697- 4384 Dec, [facility] [id number] [place] [id number] 7626 Dec, Lymph node enlargement R59.9 [facility] [id number] [place] [address] 26640- 0521 Nov, Lymph node enlargement R59.9 [facility] [id number] [place] [address] 73025- 4794 Nov, [facility] [address] 51521- 7438 Nov, Left groin pain R10.30 [facility] [id number] [place] [address] 30170- 0529 Nov, Varicose vein of leg I83.90 ; Essential hypertension I10 and Short lasting unilateral neuralgiform headache with conjunctival injection and tearing (SUNCT), not intractable G44.059 [facility] [id number] [place] [address] 31630 -7119 Jul, Post concussion syndrome F07.81 [facility] [id number] [place] [address] 24658- 7286 Jul, [facility] [id number] [place] [address] 70155- 8713 Oct, [facility] [id number] [place] [address] 52236- 2498 Oct, [facility] [id number] [place] [address] 29347- 5371 Aug, [facility] [id number] [place] [address] 26250- 6482 Aug, Obesity 278.00 [facility] [id number] [place] [address] 24693- 4610 Aug, [facility] [address] [address]- 3965 Jul, Obesity 278.00 and Cervical spondylosis without myelopathy 721.0 [facility] [id number], [place] [address]- 6409 March, [facility] [id number] [address]- 8946 Feb, Cervical spondylosis 721.0 [facility] [address] [facility] [id number] [place] [address]- 5144 Feb, [facility] [id number] [place] [address] 47445- 2299 Feb, [facility] [id number] 6090 Jan, [facility] [id number] [place] [address] 75554- 4969 Jan, [facility] [id number] 2780 Jan, [facility] [id number] [address]- 6935 Jan, [facility] [id number], [place] [address]- 1524 Jan, [facility] [id number], [place] [address]- 2819 Jan, [facility] [id number], [place] [address]- 0805 Dec, [facility] [id number], [place] [address]- 9099 Dec, [facility] [id number], [place] [address]- 9636 Dec, [facility] [id number], [place] [address]- 2171 Dec, [facility] [place] [facility] [address] [id number] [place] [address]- 8534 Nov, [facility] [place] [facility] [address] [id number] [place] [address]- 1064 Nov, [facility] [place] [facility] [address] [id number] [place] [address]- 7476 Nov, [facility] [place] [facility] [address] [id number] [place] [address]- 3195 Nov, [facility] [place] [facility] [address] [id number] [place] [address]- 9012 Nov, [facility] [place] [facility] [address] [id number] [place] [address]- 2058 Nov, [facility] [place] [facility] [address] [id number] [place] [address]- 5863 Nov, [facility] [place] [facility] [address] [id number] [place] [address]- 8245 Nov, [facility] [place] [facility] [address] [id number] [place] [address]- 3074 Oct, [facility] [place] [facility] [address] [id number] [place] [address]- 8615 Oct, [facility] [place] [facility] [address] [id number], [place] [address]- 3509 Sep, [facility] [place] [facility] [address] [id number], [place] [address]- 2024 Sep, [facility] [place] [facility] [address] [id number] [place] [address]- 4751 Sep, [facility] [place] [facility] [address] [id number] [place] [address]- 2485 Sep, [facility] [place] [facility] [address] [id number] [place] [address]- 7978 29 Jul, 2014 [facility] [place] [facility] [address] [id number] [place] [address]- 3132 29 Jul, 2013 [facility] [place] [facility] [address] [id number] [place] [address]- 7178 Jul, 2013 [facility] [place] [facility] [address] [id number] [place] [address]- 6446 Jul, 2013 [facility] [place] [facility] [address] [id number] [place] [address]- 4646 Jul, 2013 [facility] [place] [facility] [address] [id number] [place] [address]- 2547 Jul, 2013 [facility] [place] [facility] [address] [id number] [place] [address]- 6454 Jul, 2013 [facility] [place] [facility] [address] [id number] [place] [address]- 4427 Jul, 2013 [facility] [place] [facility] [address] [id number] [place] [address]- 2453 Jul, [facility] [place] [facility] [address] [id number] [place] [address]- 9158 Jul, [facility] [place] [facility] [address] [id number] [place] [address]- 1912 Jun, [facility] [place] [facility] [address] [id number] [place] [address]- 4713 Jun, [facility] [place] [facility] [address] [id number] [place] [address]- 9418 Jun, [facility] [place] [facility] [address] [id number] [place] [address]- 3942 Jun, [facility] [place] [facility] [address] [id number] [place] [address]- 0381 Jun, [facility] [place] [facility] [address] [id number] [place] [address]- 8933 Jun, [facility] [place] [facility] [address] [id number] [place] [address]- 2736 May, [facility] [place] [facility] [address] [id number] [place] [address]- 8041 May, [facility] [place] [facility] [address] [id number] [place] [address]- 1841 May, [facility] [place] [facility] [address] [id number] [place] [address]- 1987 May, [facility] [place] [facility] [address] [id number] [place] [address]- 5496 May, [facility] [place] [facility] [address] [id number] [place] [address]- 2596 May, [facility] [place] [facility] [address] [id number] [place] [address]- 3184 Apr, [facility] [place] [facility] [address] [id number] [place] [address]- 6526 Apr, [facility] [place] [facility] [address] [id number] [place] [address]- 0874 Apr, [facility] [place] [facility] [address] [id number] [place] [address]- 5085 Apr, [facility] [place] [facility] [address] [id number] [place] [address]- 4554 Apr, [facility] [place] [facility] [address] [id number] [place] [address]- 9980 Apr, [facility] [place] [facility] [address] [id number], [place] [address]- 5909 Apr, [facility] [place] [facility] [address] [id number] [place] [address]- 9543 Apr, [facility] [place] [facility] [address] [id number] [place] [address]- 0238 Apr, [facility] [place] [facility] [address] [id number] [place] [address]- 4947 Apr, [facility] [place] [facility] [address] [id number] [place] [address]- 9618 Apr, [facility] [place] [facility] [address] [id number] [place] [address]- 3117 Apr, [facility] [place] [facility] [address] [id number] [place] [address]- 3904 Apr, [facility] [place] [facility] [address] [id number] [place] [address]- 2372 March, [facility] [place] [facility] [address] [id number] [place] [address]- 4187 March, [facility] [place] [facility] [address] [id number] [place] [address]- 4167 March, [facility] [place] [facility] [address] [id number] [place] [address]- 0884 March, [facility] [place] [facility] [address] [id number] [place] [address]- 2434 March, [facility] [place] [facility] [address] [id number] [place] [address]- 1169 March, [facility] [place] [facility] [address] [id number] [place] [address]- 2789 Feb, [facility] [place] [facility] [address] [id number] [place] [address]- 9927 Feb, [facility] [place] [facility] [address] [id number] [place] [address]- 5770 Feb, [facility] [place] [facility] [address] [id number] [place] [address]- 3571 Feb, [facility] [place] [facility] [address] [id number] [place] [address]- 4631 Feb, [facility] [place] [facility] [address] [id number] [place] [address]- 2967 Feb, [facility] [place] [facility] [address] [id number] [place] [address]- 7260 15 Feb, 2014 [facility] [place] [facility] [address] [id number] [place] [address]- 9944 15 Feb, 2014 [facility] [place] [facility] [address] [id number] [place] [address]- 1950 Feb, [facility] [place] [facility] [address] [id number] [place] [address]- 1650 Feb, [facility] [place] [facility] [address] [id number] [place] [address]- 2989 24 Jan, 2014 [facility] [place] [facility] [address] [id number] [place] [address]- 9781 Jan, [facility] [place] [facility] [address] [id number] [place] [address]- 0628 Jan, [facility] [place] [facility] [address] [id number] [place] [address]- 4057 Jan, [facility] [place] [facility] [address] [id number] [place] [address] Dec, [facility] [place] [facility] [address] [id number] [place] [address] Dec, [facility] [place] [facility] [address] [id number] [place] [address] Sep, [facility] [place] [facility] [address] [id number] [place] [address] Sep, [facility] [place] [facility] [address] [id number] [place] [address] Aug, [facility] [place] [facility] [address] [id number] [place] [address] Aug, [facility] [place] [facility] [address] [id number] [place] [address] Aug, [facility] [place] [facility] [address] [id number] [place] [address] Aug, [facility] [place] [facility] [address] [id number] [place] [address] Aug, [facility] [address] [facility] [id number] [place] [address] May, [facility] [address] [facility] [id number], [place] [address] Jan, [facility] [address] [facility] [id number], [place] [address] Jan, [facility] [address] [facility] [id number], [place] [address] Dec, IMMUNIZATIONS No Known Immunizations SOCIAL HISTORY Never Assessed REASON FOR VISIT MRI request PLAN OF CARE VITAL SIGNS MEDICATIONS [...]
--- OUTSIDE RECORDS SUMMARY | 2018-10-18 19:40 | XMS REPORT ---
Author Author FLORENCIA HINOJOSA Organization [facility] Address [address] [place] [address] Care Team Providers Care Cosmetic Account Coordinator Name Role Phone FLORENCIA HINOJOSA Unavailable PROBLEMS Type Condition ICD9-CM Code [id number] Code Onset Dates Condition Status SNOMED Code Problem Arthritis M19.90 Active 3872481 Problem Chronic fatigue R53.82 Active 30537583 Problem Intractable migraine without aura and without status migrainosus G43.019 Active 274962162 Problem Memory loss R41.3 Active 48235663 Problem Other chronic pain G89.29 Active 85295925 Problem Mental status change resolved Z86.59 Active [id number] ALLERGIES No Information ENCOUNTERS Encounter Location Date Diagnosis [facility] [id number] [place] [address] 69364- 8770 May, Intractable migraine without aura and without status migrainosus G43.019 [facility] [address] 67960- 5097 May, 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 [facility] [id number] [place] [address] 31677- 1835 May, 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 [facility] [id number] [place] [address] 14180- 4173 May, 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 [facility] [id number] [place] [address] 85902 -0981 May, Pain in finger of left hand M79.645 [facility] [id number] [place] [address] 45987- 2276 Apr, Intractable migraine without aura and without status migrainosus G43.019 [facility] [address] 72970- 9211 Apr, Chronic fatigue R53.82 and Dizziness R42 [facility] [id number] [place] [address] 73867- 4976 March, [facility] [id number] [place] [address] March, Intractable migraine without aura and without status migrainosus G43.019 [facility] [id number] [place] [address] 01826- 3046 March, [facility] [id number] [place] [address] 52229- 9476 March, [facility] [id number] [place] [address] 97197- 3974 Feb, Intractable migraine without aura and without status migrainosus G43.019 [facility] [id number] [place] [address] 03583- 6361 Feb, Memory loss R41.3 and 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 [facility] [id number] [place] [address] 96707- 6000 Feb, Intractable migraine without aura and without status migrainosus G43.019 [facility] [id number] [place] [address] 61250- 9266 Jan, Intractable migraine without aura and without status migrainosus G43.019 [facility] [id number] [place] [address] 42673- 8206 Dec, [facility] [id number] [place] [address] 94277- 6662 Dec, Intractable migraine without aura and without status migrainosus G43.019 [facility] [id number] [place] [address] 03434- 2146 Nov, [facility] [id number] [place] [address] 64831- 6312 Nov, Chronic fatigue R53.82 and Family history of thyroid disease Z83.49 [facility] [id number] [place] [address] 14574- 1026 Nov, Arthritis M19.90 ; Chronic fatigue R53.82 ; Family history of thyroid disease Z83.49 ; Grade IV hemorrhoids K64.3 and Other chronic pain G89.29 [facility] [id number] [place] [address] 23489 2546 Nov, Intractable migraine without aura and without status migrainosus G43.019 [facility] [id number] [place] [address] 81563- 9936 Oct, [facility] [id number] [place] [address] 92188- 9986 Oct, Intractable migraine without aura and without status migrainosus G43.019 [facility] [id number] [place] [address] 54434- 3306 Oct, [facility] [id number] [place] [address] 94554 2546 Oct, [facility] [id number] [place] [address] 96053- 4546 Sep, Tremors of nervous system R25.1 [facility] [id number] [place] [address] 36122 2546 Sep, [facility] [id number] [place] [address] 59701 2546 Sep, Intractable migraine without aura and without status migrainosus G43.019 [facility] [id number] [place] [address] 25049 2546 Sep, [facility] [id number] [place] [address] 63784 2546 Sep, [facility] [id number] [place] [address] 10598- 2546 Sep, Acute medial meniscus tear of right knee, initial encounter S83.241A and Acute lateral meniscus tear of left knee, initial encounter S83.282A [facility] [address] [place] [address] 28617- 9856 Aug, Intractable migraine without aura and without status migrainosus G43.019 [facility] [id number] [place] [address] 39690- 2546 Aug, [facility] [id number] [place] [address] 93907- 2546 Aug, [facility] [address] [place] [address] 40062- 4406 Jul, [facility] [id number] [place] [address] 14260- 1236 Jul, [facility] [id number] [place] [address] 91621- 6387 Jul, Intractable migraine without aura and without status migrainosus G43.019 ; Memory loss R41.3 ; Mental status change resolved Z86.59 ; Other chronic pain G89.29 and Pain in right knee M25.561 [facility] [id number] [place] [address] 39808- 7564 Jul, [facility] [address] [place] [address] 46994- 6983 Jun, Tremors of nervous system R25.1 and Pelvic pain R10.2 [facility] [address] [place] [address] 39282- 2779 Jun, [facility] [address] [place] [address] 08881- 2546 Jun, [facility] [id number] [place] [address] 20121- 1916 Jun, [facility] [address] [place] [address] 28586- 8151 May, [facility] [id number] [place] [address] 30121 2546 May, [facility] [address] [address]- 1686 May, Kidney pain N23 [facility] [address] [address] 2546 May, Pelvic pain R10.2 [facility] [address] [place] [address] 12311 -3410 May, Wasp sting, accidental or unintentional, initial encounter T63.461A and Allergic contact dermatitis due to other agents L23.89 [facility] [id number] [place] [address] 29069- 8167 May, [facility] [address] [place] [address] 25171- 1763 May, Pelvic pain R10.2 [facility] [id number] [place] [address] 39906 2549 May, [facility] [address] [place] [address] 18751 2545 Apr, Tremors of nervous system R25.1 ; Blood in stool, gabby K92.1 ; 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 ; Memory loss R41.3 and Intractable migraine without aura and without status migrainosus G43.019 [facility] [address] [address] 2542 Apr, Blood in stool, gabby K92.1 [facility] [id number] [address] 2546 Apr, Tremors of nervous system R25.1 ; 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 ; Memory loss R41.3 and Intractable migraine without aura and without status migrainosus G43.019 [facility] [address] [address] 2546 Apr, [facility] [id number] [place] [address] 96410- 7081 Apr, Tremor R25.1 [facility] [id number] [place] [address] 79719- 9121 March, [facility] [address] 24532- 6772 March, Cyst of right ovary N83.201 [facility] [address] 09252- 0863 March, Blood in stool, gabby K92.1 and Other fatigue R53.83 [facility] [id number] [place] [address] 94799- 2934 March, Cyst of right ovary N83.201 [facility] [id number] [place] [address] 40429- 1152 Feb, [facility] [address] 11030- 4228 Feb, [facility] [address] 43247- 4244 Feb, Cyst of right ovary N83.201 and Right lower quadrant abdominal pain R10.31 [address] [id number] [place] [address] 99756- 2195 Jan, Pelvic pain R10.2 [facility] [id number] [place] [address] 50712- 3661 Jan, [facility] [id number] [place] [address] 84920- 1358 Jan, [facility] [id number] [place] [address] 54219- 2594 Jan, Left groin pain R10.30 [facility] [id number] [place] [address] 22263- 5344 Dec, [facility] [id number] [place] [address] 03731- 1202 Dec, Pelvic pain R10.2 and Lumbosacral neuritis M54.17 [facility] [id number] [place] [address] 38707- 9061 Dec, [facility] [id number] [place] [address] 4885 Dec, Lymph node enlargement R59.9 [facility] [id number] [place] [address] 57829- 6508 Nov, Lymph node enlargement R59.9 [facility] [id number] [place] [address] 87783- 6590 Nov, [facility] [address] 66457- 8140 Nov, Left groin pain R10.30 [facility] [id number] [place] [address] 91639- 3196 Nov, Varicose vein of leg I83.90 ; Essential hypertension I10 and Short lasting unilateral neuralgiform headache with conjunctival injection and tearing (SUNCT), not intractable G44.059 [facility] [id number] [place] [address] 20402 -7661 Jul, Post concussion syndrome F07.81 [facility] [id number] [place] [address] 36068- 6197 Jul, [facility] [id number] [place] [address] 57480- 4945 Oct, [facility] [id number] [place] [address] 19109- 1497 Oct, [facility] [id number] [place] [address] 09098- 8402 Aug, [facility] [id number] [place] [address] 85534- 1127 Aug, Obesity 278.00 [facility] [id number] [place] [address] 62933- 7686 Aug, [facility] [address] [address]- 1277 Jul, Obesity 278.00 and Cervical spondylosis without myelopathy 721.0 [facility] [address] [address]- 2412 March, [facility] [address] [address]- 8206 Feb, Cervical spondylosis 721.0 [facility] [address] [id number] [place] [address]- 8575 Feb, [facility] [id number] [place] [address] 22815- 3213 Feb, [facility] [address] 4147 Jan, [facility] [address] [place] [address] 79937- 4425 Jan, [facility] [address] 4186 Jan, [facility] [address] [address]- 3905 Jan, [facility] [address] [address]- 1417 Jan, [facility] [address] [address]- 1575 Jan, [facility] [address] [address]- 0751 Dec, [facility] [address] [address]- 0670 Dec, [facility] [address] [address]- 1306 Dec, [facility] [address] [address]- 4395 Dec, [facility] [place] [facility] [address] [id number] [place] [address]- 4781 Nov, [facility] [place] [facility] [address] [id number] [place] [address]- 4321 Nov, [facility] [place] [facility] [address] [id number] [place] [address]- 2953 Nov, [facility] [place] [facility] [address] [id number] [place] [address]- 6583 Nov, [facility] [place] [facility] [address] [id number] [place] [address]- 6509 Nov, [facility] [place] [facility] [address] [id number] [place] [address]- 7575 Nov, [facility] [place] [facility] [address] [id number] [place] [address]- 4086 Nov, [facility] [place] [facility] [address] [id number] [place] [address]- 7369 Nov, [facility] [place] [facility] [address] [id number] [place] [address]- 9554 Oct, [facility] [place] [facility] [address] [id number] [place] [address]- 3184 Oct, [facility] [place] [facility] [address] [id number] [address]- 4634 Sep, [facility] [place] [facility] [address] [id number] [place] [address]- 8886 Sep, [facility] [place] [facility] [address] [id number] [place] [address]- 5129 Sep, [facility] [place] [facility] [address] [id number] [place] [address]- 3510 Sep, [facility] [place] [facility] [address] [id number] [place] [address]- 2192 29 Jul, 2014 [facility] [place] [facility] [address] [id number] [place] [address]- 5025 29 Jul, 2013 [facility] [place] [facility] [address] [id number] [place] [address]- 6948 Jul, 2013 [facility] [place] [facility] [address] [id number] [place] [address]- 7556 Jul, 2013 [facility] [place] [facility] [address] [id number] [place] [address]- 3839 Jul, 2013 [facility] [place] [facility] [address] [id number] [place] [address]- 2547 Jul, 2013 [facility] [place] [facility] [address] [id number] [place] [address]- 3519 Jul, 2013 [facility] [place] [facility] [address] [id number] [place] [address]- 7079 Jul, 2013 [facility] [place] [facility] [address] [id number] [place] [address]- 7631 Jul, [facility] [place] [facility] [address] [id number] [place] [address]- 5084 Jul, [facility] [place] [facility] [address] [id number] [place] [address]- 2689 Jun, [facility] [place] [facility] [address] [id number] [place] [address]- 4298 Jun, [facility] [place] [facility] [address] [id number] [place] [address]- 5576 Jun, [facility] [place] [facility] [address] [id number] [place] [address]- 6190 Jun, [facility] [place] [facility] [address] [id number] [place] [address]- 0686 Jun, [facility] [place] [facility] [address] [id number] [place] [address]- 0503 Jun, [facility] [place] [facility] [address] [id number] [place] [address]- 0452 May, [facility] [place] [facility] [address] [id number] [place] [address]- 8614 May, [facility] [place] [facility] [address] [id number] [place] [address]- 5554 May, [facility] [place] [facility] [address] [id number] [place] [address]- 8225 May, [facility] [place] [facility] [address] [id number] [place] [address]- 8773 May, [facility] [place] [facility] [address] [id number] [place] [address]- 1009 May, [facility] [place] [facility] [address] [id number] [place] [address]- 4110 Apr, [facility] [place] [facility] [address] [id number] [place] [address]- 8217 Apr, [facility] [place] [facility] [address] [id number] [place] [address]- 2340 Apr, [facility] [place] [facility] [address] [id number] [place] [address]- 0819 Apr, [facility] [place] [facility] [address] [id number] [place] [address]- 2891 Apr, [facility] [place] [facility] [address] [id number] [place] [address]- 8172 Apr, [facility] [place] [facility] [address] [id number] [address]- 2468 Apr, [facility] [place] [facility] [address] [id number] [place] [address]- 5640 Apr, [facility] [place] [facility] [address] [id number] [place] [address]- 2753 Apr, [facility] [place] [facility] [address] [id number] [place] [address]- 1544 Apr, [facility] [place] [facility] [address] [id number] [place] [address]- 3939 Apr, [facility] [place] [facility] [address] [id number] [place] [address]- 4655 Apr, [facility] [place] [facility] [address] [id number] [place] [address]- 5960 Apr, [facility] [place] [facility] [address] [id number] [place] [address]- 1809 March, [facility] [place] [facility] [address] [id number] [place] [address]- 2546 March, [facility] [place] [facility] [address] [id number] [place] [address]- 9295 March, [facility] [place] [facility] [address] [id number] [place] [address]- 1776 March, [facility] [place] [facility] [address] [id number] [place] [address]- 0655 March, [facility] [place] [facility] [address] [id number] [place] [address]- 5455 March, [facility] [place] [facility] [address] [id number] [place] [address]- 8889 Feb, [facility] [place] [facility] [address] [id number] [place] [address]- 2021 Feb, [facility] [place] [facility] [address] [id number] [place] [address]- 4125 Feb, [facility] [place] [facility] [address] [id number] [place] [address]- 5702 Feb, [facility] [place] [facility] [address] [id number] [place] [address]- 1120 Feb, [facility] [place] [facility] [address] [id number] [place] [address]- 0893 Feb, [facility] [place] [facility] [address] [id number] [place] [address]- 5341 15 Feb, 2014 [facility] [place] [facility] [address] [id number] [place] [address]- 9765 15 Feb, 2014 [facility] [place] [facility] [address] [id number] [place] [address]- 6507 Feb, [facility] [place] [facility] [address] [id number] [place] [address]- 5161 Feb, [facility] [place] [facility] [address] [id number] [place] [address]- 5353 24 Jan, 2014 [facility] [place] [facility] [address] [id number] [place] [address]- 3948 Jan, [facility] [place] [facility] [address] [id number] [place] [address]- 8913 Jan, [facility] [place] [facility] [address] [id number] [place] [address]- 0664 Jan, [facility] [place] [facility] [address] [id number] [place] [address]- 9074 Dec, [facility] [place] [facility] [address] [id number] [place] [address]- 2589 Dec, [facility] [place] [facility] [address] [id number] [place] [address]- 1342 Sep, [facility] [place] [facility] [address] [id number] [place] [address]- 0208 Sep, [facility] [place] [facility] [address] [id number] [place] [address]- 5699 Aug, [facility] [place] [facility] [address] [id number] [place] [address]- 9362 Aug, [facility] [place] [facility] [address] [id number] [place] [address]- 4374 Aug, [facility] [place] [facility] [address] [id number] [place] [address]- 2305 Aug, [facility] [place] [facility] [address] [id number] [place] [address]- 2140 Aug, [facility] [address] [id number] [place] [address]- 2546 May, [facility] [address] [id number] [place] [address]- 2546 Jan, [facility] [address] [id number] [place] [address]- 2546 Jan, [facility] [address] [id number] [place] [address]- 2546 Dec, IMMUNIZATIONS No Known Immunizations SOCIAL HISTORY Never Assessed REASON FOR VISIT Controlled refill request 02/25 PLAN OF CARE VITAL SIGNS MEDICATIONS Medication [...]
--- OUTSIDE RECORDS SUMMARY | 2018-10-18 19:41 | XMS REPORT ---
Author Author FLORENCIA HINOJOSA Organization [facility] [place] Address [address] [place] [address] Care Team Providers Care Spindle Sander Name Role Phone FLORENCIA HINOJOSA Unavailable PROBLEMS Type Condition ICD9-CM Code AXS96-WD Code Onset Dates Condition Status SNOMED Code Problem Arthritis M19.90 Active 3317481 Problem Chronic fatigue R53.82 Active 68007959 Problem Intractable migraine without aura and without status migrainosus G43.019 Active 611760861 Problem Memory loss R41.3 Active 55891598 Problem Other chronic pain G89.29 Active 51506249 Problem Mental status change resolved Z86.59 Active [id number] ALLERGIES No Information ENCOUNTERS Encounter Location Date Diagnosis [facility] [place] [id number] [place] [address] 75312- 2890 May, 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 [facility] [place] [id number] [place] [address] 32853- 0919 May, 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 [facility] [place] [id number] [place] [address] 13512- 0096 May, 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 [facility] [id number] [place] [address] 23708 -4648 May, Pain in finger of left hand M79.645 [facility] [place] [id number] [place] [address] 65056- 3349 Apr, Intractable migraine without aura and without status migrainosus G43.019 [facility] [place] [id number] [place] [address] 33712- 3628 Apr, Chronic fatigue R53.82 and Dizziness R42 [facility] [place] [id number] [place] [address] 79566- 8517 March, [facility] [place] [address] [address] 9919 March, Intractable migraine without aura and without status migrainosus G43.019 [facility] [place] [id number] [place] [address] 80150- 1433 March, [facility] [place] [id number] [place] [address] 06254- 7823 March, [facility] [place] [id number] [place] [address] 47391- 9454 Feb, Intractable migraine without aura and without status migrainosus G43.019 [facility] [place] [id number] [place] [address] 11191- 7514 Feb, Memory loss R41.3 and 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 [facility] [place] [id number] [place] [address] 75363- 9197 Feb, Intractable migraine without aura and without status migrainosus G43.019 [facility] [place] [id number] [place] [address] 71778- 3483 Jan, Intractable migraine without aura and without status migrainosus G43.019 [facility] [place] [id number] [place] [address] 46780- 5693 Dec, [facility] [place] [id number] [place] [address] 16842- 6340 Dec, Intractable migraine without aura and without status migrainosus G43.019 [facility] [place] [id number] [place] [address] 78182- 5404 Nov, [facility] [place] [id number] [place] [address] 48585- 4344 Nov, Chronic fatigue R53.82 and Family history of thyroid disease Z83.49 [facility] [place] [id number] [place] [address] 63700- 9742 Nov, Arthritis M19.90 ; Chronic fatigue R53.82 ; Family history of thyroid disease Z83.49 ; Grade IV hemorrhoids K64.3 and Other chronic pain G89.29 [facility] [place] [id number] [place] [address] 32358- 1946 Nov, Intractable migraine without aura and without status migrainosus G43.019 [facility] [place] [id number] [place] [address] 42385- 0316 Oct, [facility] [place] [id number] [place] [address] 95002- 2546 Oct, Intractable migraine without aura and without status migrainosus G43.019 [facility] [place] [id number] [place] [address] 11905- 1906 Oct, [facility] [place] [id number] [place] [address] 11783- 0836 Oct, [facility] [place] [id number] [place] [address] 69112- 5258 Sep, Tremors of nervous system R25.1 [facility] [place] [id number] [place] [address] 43069- 0376 Sep, [facility] [place] [id number] [place] [address] 40781- 4396 Sep, Intractable migraine without aura and without status migrainosus G43.019 [facility] [place] [id number] [place] [address] 91353 2546 Sep, [facility] [place] [id number] [place] [address] 45723 2546 Sep, [facility] [place] [id number] [place] [address] 26580- 7616 Sep, Acute medial meniscus tear of right knee, initial encounter S83.241A and Acute lateral meniscus tear of left knee, initial encounter S83.282A [facility] [place] [id number] [place] [address] 06047- 9696 Aug, Intractable migraine without aura and without status migrainosus G43.019 [facility] [place] [address], [place] [address]- 5105 Aug, [facility] [place] [address], [place] [address]- 7972 Aug, [facility] [place] [address], [place] [address]- 6782 Jul, [facility] [place] [id number] [address]- 4153 Jul, [facility] [place] [id number] [place] [address] 98370- 5587 Jul, Intractable migraine without aura and without status migrainosus G43.019 ; Memory loss R41.3 ; Mental status change resolved Z86.59 ; Other chronic pain G89.29 and Pain in right knee M25.561 [facility] [place] [id number] [place] [address] 14362- 9061 Jul, [facility] [place] [address], [place] [address]- 2901 Jun, Tremors of nervous system R25.1 and Pelvic pain R10.2 [facility] [place] [address], [place] [address]- 2305 Jun, [facility] [place] [address] [address]- 1003 Jun, [facility] [place] [address], [place] [address]- 3046 Jun, [facility] [place] [address] [address]- 2619 May, [facility] [place] [address], [place] [address]- 0069 May, [facility] [place] [address], [place] [address]- 0424 May, Kidney pain N23 [facility] [place] [id number] [place] [address] 48684- 8855 May, Pelvic pain R10.2 [facility] [id number] [place] [address] 35763 -2768 May, Wasp sting, accidental or unintentional, initial encounter T63.461A and Allergic contact dermatitis due to other agents L23.89 [facility] [place] [id number] [place] [address] 46138- 7728 May, [facility] [place] [id number] [place] [address] 36976- 6979 May, Pelvic pain R10.2 [facility] [place] [id number] [place] [address] 05708- 7318 May, [facility] [place] [id number] [place] [address] 03494- 5800 Apr, Tremors of nervous system R25.1 ; Blood in stool, gabby K92.1 ; 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 ; Memory loss R41.3 and Intractable migraine without aura and without status migrainosus G43.019 [facility] [place] [id number] [place] [address] 06333- 2692 Apr, Blood in stool, gabby K92.1 [facility] [place] [id number] [place] [address] 91228- 5957 Apr, Tremors of nervous system R25.1 ; 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 ; Memory loss R41.3 and Intractable migraine without aura and without status migrainosus G43.019 [facility] [place] [id number] [place] [address] 77550- 1191 Apr, [facility] [place] [id number] [place] [address] 30572- 7677 Apr, Tremor R25.1 [facility] [place] [id number] [place] [address] 66444- 0319 March, [facility] [place] [id number] [place] [address] 28706- 5962 March, Cyst of right ovary N83.201 [facility] [place] [id number] [place] [address] 89608- 7911 March, Blood in stool, gabby K92.1 and Other fatigue R53.83 [facility] [place] [id number] [place] [address] 53473- 9633 March, Cyst of right ovary N83.201 [facility] [place] [id number] [place] [address] 24213- 8705 Feb, [facility] [place] [id number] [place] [address] 37088- 4373 Feb, [facility] [place] [id number] [place] [address] 94578- 1666 Feb, Cyst of right ovary N83.201 and Right lower quadrant abdominal pain R10.31 [facility] [place] [id number] [place] [address] 96799- 7986 Jan, Pelvic pain R10.2 [facility] [place] [id number] [place] [address] 73969- 5813 Jan, [facility] [place] [id number] [place] [address] 29452- 0627 Jan, [facility] [place] [id number] [place] [address] 70500- 8872 Jan, Left groin pain R10.30 [facility] [place] [id number] [place] [address] 04661- 3875 Dec, [facility] [place] [id number] [place] [address] 92874- 3086 Dec, Pelvic pain R10.2 and Lumbosacral neuritis M54.17 [facility] [place] [id number] [place] [address] 79191- 1286 Dec, [facility] [place] [id number] [place] [address] 54011- 5938 Dec, Lymph node enlargement R59.9 [facility] [place] [id number] [place] [address] 04366- 6443 Nov, Lymph node enlargement R59.9 [facility] [place] [id number] [place] [address] 59844- 0299 Nov, [facility] [place] [address] 91538- 6795 Nov, Left groin pain R10.30 [place] 84391- 5272 Nov, Varicose vein of leg I83.90 ; Essential hypertension I10 and Short lasting unilateral neuralgiform headache with conjunctival injection and tearing (SUNCT), not intractable G44.059 [facility] [id number] [place] [address] 57404 -1791 Jul, Post concussion syndrome F07.81 [facility] [place] [id number] [place] [address] 88891- 7511 Jul, [facility] [place] [id number] [place] [address] 00284- 4992 Oct, [facility] [place] [id number] [place] [address] 66057- 2475 Oct, [facility] [place] [id number] [place] [address] 92199- 6201 Aug, [facility] [place] [id number] [place] [address] 53647- 2817 Aug, Obesity 278.00 [facility] [place] [id number] [place] [address] 33750- 7449 Aug, [facility] [place] [id number] [place] [address] 84676- 7924 Jul, Obesity 278.00 and Cervical spondylosis without myelopathy 721.0 [facility] [place] [facility] [address] [facility] [id number] [address]- 9034 March, [facility] [place] [facility] [address], [place] [address]- 3555 30 Feb, 2015 Cervical spondylosis 721.0 [facility] [place] [facility] [address] [place] [address]- 8656 Feb, [facility] [place] [facility] [address] [facility] [id number] [address]- 5949 Feb, [facility] [place] [facility] [id number] [place] [address]- 7643 Jan, [facility] [place] [facility] [address], [place] [address]- 5085 Jan, [facility] [place] [facility] [address], [place] [address]- 5699 Jan, [facility] [place] [facility] [address], [place] [address]- 6140 Jan, [facility] [place] [facility] [address], [place] [address]- 3825 Jan, [facility] [place] [facility] [address], [place] [address]- 9587 Jan, [facility] [place] [facility] [address], [place] [address]- 7204 Dec, [facility] [place] [facility] [id number], [place] [address]- 7587 Dec, [facility] [place] [facility] [address], [place] [address]- 1292 Dec, [facility] [place] [facility] [id number]- 0453 Dec, [facility] [place] [facility] [id number], [place] [address]- 8478 Nov, [facility] [place] [facility] [address] [id number] [place] [address]- 7639 16 Nov, 2014 [facility] [place] [facility] [address] [id number] [place] [address]- 2905 16 Nov, 2014 [facility] [place] [facility] [address] [id number] [place] [address]- 8530 15 Nov, 2014 [facility] [place] [facility] [address] [id number] [place] [address]- 8127 14 Nov, 2014 [facility] [place] [facility] [address] [id number] [place] [address]- 0162 14 Nov, 2014 [facility] [place] [facility] [address] [id number] [place] [address]- 1746 Nov, [facility] [place] [facility] [address] [id number] [place] [address]- 8460 Nov, [facility] [place] [facility] [address] [id number] [place] [address]- 9805 Oct, [facility] [place] [facility] [address] [id number] [place] [address]- 8812 Oct, [facility] [place] [facility] [address] [id number] [place] [address]- 5853 Sep, [facility] [place] [facility] [address] [id number] [place] [address]- 4355 Sep, [facility] [place] [facility] [address] [id number] [place] [address]- 9189 Sep, [facility] [place] [facility] [address] [id number] [place] [address]- 6511 Sep, [facility] [place] [facility] [address] [id number] [place] 8014 29 Jul, 2014 [facility] [place] [facility] [address] [id number] [place] 7197 29 Jul, 2014 [facility] [place] [facility] [address] [id number] [place] [address]- 4845 Jul, [facility] [place] [facility] [address] [id number] [place] [address]- 8036 Jul, [facility] [place] [facility] [address] [id number] [place] [address]- 1630 Jul, [facility] [place] [facility] [address] [id number] [place] [address]- 0319 Jul, [facility] [place] [facility] [address] [id number] [place] [address]- 3621 Jul, [facility] [place] [facility] [address] [id number] [place] [address]- 9153 Jul, [facility] [place] [facility] [address] [id number] [place] [address]- 1351 Jul, [facility] [place] [facility] [address] [id number] [place] [address]- 5983 Jul, [facility] [place] [facility] [address] [id number] [place] [address]- 0763 Jun, [facility] [place] [facility] [address] [id number] [place] [address]- 9616 Jun, [facility] [place] [facility] [address] [id number] [place] [address]- 4907 Jun, [facility] [place] [facility] [address] [id number] [place] [address]- 0574 Jun, [facility] [place] [facility] [address] [id number], [place] [address]- 0169 Jun, [facility] [place] [facility] [address] [id number] [place] [address]- 9856 Jun, [facility] [place] [facility] [address] [id number] [place] [address]- 1182 May, [facility] [place] [facility] [address] [id number] [place] [address]- 5674 May, [facility] [place] [facility] [address] [id number] [place] [address]- 3744 11 May, 2013 [facility] [place] [facility] [address] [id number] [place] [address] 11 May, 2014 [facility] [place] [facility] [address] [id number] [place] [address] 07 May, 2014 [facility] [place] [facility] [address] [id number] [place] [address] 07 May, 2014 [facility] [place] [facility] [address] [id number] [place] [address] 24 Apr, 2014 [facility] [place] [facility] [address] [id number] [place] [address] Apr, [facility] [place] [facility] [address] [id number] [place] [address] Apr, [facility] [place] [facility] [address] [id number] [place] [address] Apr, [facility] [place] [facility] [address] [id number] [place] [address] Apr, [facility] [place] [facility] [address] [id number] [place] [address] Apr, [facility] [place] [facility] [address] [id number] [place] [address] Apr, [facility] [place] [facility] [address] [id number] [place] [address] 05 Apr, 2014 [facility] [place] [facility] [address] [id number] [place] [address] 05 Apr, 2014 [facility] [place] [facility] [address] [id number] [place] [address] 04 Apr, 2014 [facility] [place] [facility] [address] [id number] [place] [address] 04 Apr, 2014 [facility] [place] [facility] [address] [id number] [place] [address]- [address] Apr, [facility] [place] [facility] [address] [id number] [place] [address]- [address] Apr, [facility] [place] [facility] [address] [id number] [place] [address] March, [facility] [place] [facility] [address] [id number] [place] [address] March, [facility] [place] [facility] [address] [id number] [place] [address] March, [facility] [address] [id number] [place] [address] March, [facility] [place] [facility] [address] [id number] [place] [address]- [address] March, [facility] [place] [facility] [address] [id number] [place] [address] March, [facility] [address] [id number] [place] [address] Feb, [facility] [place] [facility] [address] [id number] [place] [address] Feb, [facility] [place] [facility] [address] [id number] [place] [address] Feb, [facility] [place] [facility] [address] [id number] [place] [address] Feb, [facility] [place] [facility] [address] [id number] [place] [address]- [address] Feb, [facility] [place] [facility] [address] [id number] [place] [address]- [address] Feb, [facility] [place] [facility] [address] [id number] [place] [address] Feb, [facility] [place] [facility] [address] [id number] [place] [address] Feb, [facility] [place] [facility] [address] [id number] [place] [address] Feb, [facility] [place] [facility] [address] [id number] [place] [address]- [address] Feb, [facility] [place] [facility] [address] [id number] [place] [address]- [address] Jan, [facility] [place] [facility] [address] [id number] [place] [address] Jan, [facility] [place] [facility] [address] [id number] [place] [address]- [address] Jan, [facility] [place] [facility] [address] [id number] [place] [address] Jan, [facility] [place] [facility] [address] [id number] [place] [address]- [address] Dec, [facility] [place] [facility] [address] [id number] [place] [address] Dec, [facility] [place] [facility] [address] [id number] [place] [address] Sep, [facility] [place] [facility] [address] [id number] [place] [address]- [address] Sep, [facility] [place] [facility] [address] [id number] [place] [address] Aug, [facility] [place] [facility] [address] [id number] [place] [address] Aug, [facility] [place] [facility] [address] [id number] [place] [address]- [address] Aug, [facility] [place] [facility] [address] [id number] [place] [address] Aug, [facility] [place] [facility] [address] [id number] [place] [address]- [address] Aug, [facility] [place] [facility] [address] [id number] [place] [address]- [address] May, [facility] [place] [facility] [address] [facility] [id number] [place] [address] Jan, [facility] [place] [address] [facility] [id number], [place] [address] Jan, [facility] [place] [address] [facility] [id number] [place] [address] Dec, IMMUNIZATIONS No Known Immunizations SOCIAL HISTORY Never Assessed REASON FOR VISIT Refill request PLAN OF CARE VITAL SIGNS MEDICATIONS Medication Instructions Dosage Frequency Start Date End Date Duration Status Oxycodone HCl 10 mg Orally 4 times a day 1 tablet as needed 6h Jan, 28 days Active Ambien 10 mg Orally [...]
--- OUTSIDE RECORDS SUMMARY | 2018-10-18 19:42 | XMS REPORT ---
Author Author FLORENCIA HINOJOSA Organization [facility] Address [address] [place] [address] Care Team Providers Care Guitar Maker Name Role Phone FLORENCIA HINOJOSA Unavailable PROBLEMS Type Condition ICD9-CM Code AFH19-SO Code Onset Dates Condition Status SNOMED Code Problem Arthritis M19.90 Active 2743360 Problem Chronic fatigue R53.82 Active 17657193 Problem Intractable migraine without aura and without status migrainosus G43.019 Active 913886971 Problem Memory loss R41.3 Active 59283767 Problem Other chronic pain G89.29 Active 31528534 Problem Mental status change resolved Z86.59 Active [id number] ALLERGIES No Information ENCOUNTERS Encounter Location Date Diagnosis [facility] [id number] [place] [address] 55194- 3577 Apr, [facility] [id number] [place] [address] 67247- 8068 March, [facility] [id number] [place] [address] 87149- 4168 March, Intractable migraine without aura and without status migrainosus G43.019 [facility] [id number] [place] [address] 95281- 4795 March, [facility] [id number] [place] [address] 91965- 8798 March, [facility] [id number] [place] [address] 33430- 4945 Feb, Intractable migraine without aura and without status migrainosus G43.019 [facility] [id number] [place] [address] 39801- 5080 Feb, Memory loss R41.3 and 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 [facility] [id number] [address] 1096 Feb, Intractable migraine without aura and without status migrainosus G43.019 [facility] [address] [address] 2546 Jan, Intractable migraine without aura and without status migrainosus G43.019 [address] [place] [address] 7726 Dec, [facility] [id number] [place] [address] 63956 2546 Dec, Intractable migraine without aura and without status migrainosus G43.019 [place] [id number] [place] [address] 74518- 9116 Nov, [place] [id number] [address] 6866 Nov, Chronic fatigue R53.82 and Family history of thyroid disease Z83.49 [place] [address] [address] 8676 Nov, Arthritis M19.90 ; Chronic fatigue R53.82 ; Family history of thyroid disease Z83.49 ; Grade IV hemorrhoids K64.3 and Other chronic pain G89.29 [place] [address] [address] 3029 Nov, Intractable migraine without aura and without status migrainosus G43.019 [place] [address] [address]- 5646 Oct, [place] [address] [address] 2546 Oct, Intractable migraine without aura and without status migrainosus G43.019 [facility] [address] [address] 2546 Oct, [place] [id number] [place] [address] 31345 2546 Oct, [facility] [address] [address] 2546 Sep, Tremors of nervous system R25.1 [facility] [address] [id number] [address] 2546 Sep, [facility] [address] [address] 8776 Sep, Intractable migraine without aura and without status migrainosus G43.019 [facility] [address] [facility] [id number] [address] 2546 Sep, [facility] [id number] [place] [address] 29948- 5546 Sep, [facility] [address] [address] 2546 Sep, Acute medial meniscus tear of right knee, initial encounter S83.241A and Acute lateral meniscus tear of left knee, initial encounter S83.282A [facility] [address] [address] 2546 Aug, Intractable migraine without aura and without status migrainosus G43.019 [facility] [address] [id number] [address] 2546 Aug, [facility] [address] [address] 2546 Aug, [facility] [address] [address] 2546 Jul, [facility] [address] [address] 2546 Jul, [facility] [address] [address] 2546 Jul, Intractable migraine without aura and without status migrainosus G43.019 ; Memory loss R41.3 ; Mental status change resolved Z86.59 ; Other chronic pain G89.29 and Pain in right knee M25.561 [facility] [id number] [place] [address] 56283- 1812 Jul, [facility] [id number] [place] [address] 00792- 9300 Jun, Tremors of nervous system R25.1 and Pelvic pain R10.2 [facility] [id number] [place] [address] 52318- 4739 Jun, [facility] [id number] [place] [address] 88734- 5801 Jun, [facility] [id number] [place] [address] 73322- 8503 Jun, [facility] [id number] [place] [address] 72157- 6780 May, [facility] [id number] [place] [address] 80505- 8345 May, [facility] [id number] [place] [address] 50324- 2886 May, Kidney pain N23 [facility] [id number] [place] [address] 93798- 6207 May, Pelvic pain R10.2 [facility] [id number] [place] [address] 82191 -5589 May, Wasp sting, accidental or unintentional, initial encounter T63.461A and Allergic contact dermatitis due to other agents L23.89 [facility] [id number] [place] [address] 13378- 3240 May, [facility] [id number] [place] [address] 90854- 9757 May, Pelvic pain R10.2 [facility] [id number] [place] [address] 59345- 6974 May, [facility] [id number] [place] [address] 63741 2546 Apr, Tremors of nervous system R25.1 ; Blood in stool, gabby K92.1 ; 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 ; Memory loss R41.3 and Intractable migraine without aura and without status migrainosus G43.019 [facility] [address] [address] 2546 Apr, Blood in stool, gabby K92.1 [facility] [id number] [place] [address] 47338 2546 Apr, Tremors of nervous system R25.1 ; 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 ; Memory loss R41.3 and Intractable migraine without aura and without status migrainosus G43.019 [facility] [id number] [place] [address] 38294 2546 Apr, [facility] [id number] [place] [address] 12266- 0386 Apr, Tremor R25.1 [facility] [id number] [place] [address] 04754- 2416 March, [facility] [id number] [place] [address] 44995- 4176 March, Cyst of right ovary N83.201 [facility] [id number] [place] [address] 53582- 2696 March, Blood in stool, gabby K92.1 and Other fatigue R53.83 [facility] [id number] [place] [address] 31268 2546 March, Cyst of right ovary N83.201 [facility] [id number] [place] [address] 75240- 0866 Feb, [facility] [id number] [place] [address] 33687- 2546 Feb, [facility] [id number] [place] [address] 67353- 2606 Feb, Cyst of right ovary N83.201 and Right lower quadrant abdominal pain R10.31 [facility] [id number] [place] [address] 22395 2546 Jan, Pelvic pain R10.2 [facility] [id number] [place] [address] 43229 2546 Jan, [facility] [id number] [place] [address] 66906 2546 Jan, [facility] [id number] [place] [address] 60163 254 Jan, Left groin pain R10.30 [facility] [id number] [place] [address] 69344- 8606 Dec, [facility] [id number] [place] [address] 10121- 2444 Dec, Pelvic pain R10.2 and Lumbosacral neuritis M54.17 [facility] [id number] [place] [address] 49591- 2119 Dec, [facility] [id number] [place] [address] 10504- 7356 Dec, Lymph node enlargement R59.9 [facility] [id number] [place] [address] 21055- 9076 Nov, Lymph node enlargement R59.9 [facility] [id number] [place] [address] 95660 2548 Nov, [facility] [id number] [place] [address] 10361- 2736 Nov, Left groin pain R10.30 [facility] [id number] [place] [address] 49178- 2546 Nov, Varicose vein of leg I83.90 ; Essential hypertension I10 and Short lasting unilateral neuralgiform headache with conjunctival injection and tearing (SUNCT), not intractable G44.059 [facility] [address] [address]7199 07 Jul, 2016 Post concussion syndrome F07.81 [facility] [address] [place] [address] 72344- 9277 07 Jul, 2016 [facility] [id number] [place] [address] 58329- 2664 Oct, [facility] [id number] [place] [address] 22687- 7373 Oct, [facility] [id number] [place] [address] 88430- 8209 Aug, [facility] [id number] [place] [address] 46509- 9194 Aug, Obesity 278.00 [facility] [id number] [place] [address] 84574- 1132 Aug, [facility] [id number] [place] [address] 29990- 0833 Jul, Obesity 278.00 and Cervical spondylosis without myelopathy 721.0 [facility] [id number] [place] [address] 54031- 2050 March, [facility] [address] [place] [address] 72526- 1626 30 Feb, 2015 Cervical spondylosis 721.0 [facility] [address] [address]- 1442 Feb, [facility] [id number] [place] [address] 11905- 3654 Feb, [facility] [id number] [place] [address] 722075- 0815 Jan, [facility] [address] [address]- 3623 Jan, [facility] [id number] [place] [address], [place] [address]- 4441 Jan, [facility] [place] [facility] [address] [id number] [place] [address]- 8400 Jan, [facility] [place] [facility] [address] [id number] [place] [address]- 0766 Jan, [facility] [place] [facility] [address] [id number] [place] [address]- 1394 Jan, [facility] [place] [facility] [address] [id number] [place] [address]- 3246 Dec, [facility] [place] [facility] [address] [id number] [place] [address]- 0593 Dec, 2014 [facility] [place] [facility] [address] [id number] [place] [address]- 5417 Dec, [facility] [place] [facility] [address] [id number] [place] [address]- 9251 Dec, [facility] [place] [facility] [address] [id number] [place] [address]- 9514 Nov, [facility] [place] [facility] [address] [id number] [place] [address]- 5479 Nov, [facility] [place] [facility] [address] [id number] [place] [address]- 0008 Nov, [facility] [place] [facility] [address] [id number] [place] [address]- 3411 Nov, [facility] [place] [facility] [address] [id number] [place] [address]- 8143 Nov, [facility] [place] [facility] [address] [id number] [place] [address]- 2719 Nov, [facility] [place] [facility] [address] [id number] [place] [address]- 8516 Nov, [facility] [place] [facility] [address] [id number] [place] [address]- 4373 Nov, [facility] [place] [facility] [address] [id number] [place] [address]- 2773 Oct, [facility] [place] [facility] [address] [id number] [place] [address]- 4836 Oct, [facility] [place] [facility] [address] [id number] [place] [address]- 8056 Sep, [facility] [place] [facility] [address] [id number] [place] [address]- 9016 Sep, [facility] [place] [facility] [address] [id number] [place] [address]- 8511 Sep, [facility] [place] [facility] [address] [id number] [place] [address]- 6783 Sep, [facility] [place] [facility] [address] [id number] [place] [address]- 5288 29 Jul, 2014 [facility] [place] [facility] [address] [id number] [place] [address]- 5155 29 Jul, 2014 [facility] [place] [facility] [address] [id number] [place] [address]- 7569 26 Jul, 2014 [facility] [place] [facility] [address] [id number] [place] [address]- 0494 26 Jul, 2014 [facility] [place] [facility] [address] [id number] [place] [address]- 9946 19 Jul, 2013 [facility] [place] [facility] [address] [id number] [place] [address]- 9005 19 Jul, 2013 [facility] [place] [facility] [address] [id number] [place] [address]- 2548 19 Jul, 2013 [facility] [place] [facility] [address] [id number] [place] [address]- 5867 19 Jul, 2013 [facility] [place] [facility] [address] [id number] [place] [address]- 8082 09 Jul, 2013 [facility] [place] [facility] [address] [id number] [place] [address]- 5942 Jul, [facility] [place] [facility] [address] [id number] [place] [address]- 3046 Jun, [facility] [place] [facility] [address] [id number] [place] [address]- 3690 Jun, [facility] [place] [facility] [address] [id number] [place] [address]- 8542 Jun, [facility] [place] [facility] [address] [id number] [place] [address]- 4350 Jun, [facility] [place] [facility] [address] [id number] [place] [address]- 8448 Jun, [facility] [place] [facility] [address] [id number] [place] [address]- 3266 Jun, [facility] [place] [facility] [address] [id number] [place] [address]- 9408 May, [facility] [place] [facility] [address] [id number] [place] [address]- 7887 May, [facility] [place] [facility] [address] [id number] [place] [address]- 6600 May, [facility] [place] [facility] [address] [id number] [place] [address]- 1429 May, [facility] [place] [facility] [address] [id number] [place] [address]- 9767 May, [facility] [place] [facility] [address] [id number] [place] [address]- 3790 May, [facility] [place] [facility] [address] [id number] [place] [address]- 7030 Apr, [facility] [place] [facility] [address] [id number] [place] [address]- 1267 Apr, [facility] [place] [facility] [address] [id number] [place] [address]- 6234 Apr, [facility] [place] [facility] [address] [id number] [place] [address]- 1240 Apr, [facility] [place] [facility] [address] [id number] [place] [address]- 7514 Apr, [facility] [place] [facility] [address] [id number] [place] [address]- 6966 Apr, [facility] [place] [facility] [address] [id number] [place] [address]- 4845 Apr, [facility] [place] [facility] [address] [id number] [place] [address]- 6583 Apr, [facility] [place] [facility] [address] [id number] [place] [address]- 3179 Apr, [facility] [place] [facility] [address] [id number] [place] [address]- 7035 Apr, [facility] [place] [facility] [address] [id number] [place] [address]- 0284 Apr, [facility] [place] [facility] [address] [id number] [place] [address]- 6162 Apr, [facility] [place] [facility] [address] [id number] [place] [address]- 8424 Apr, [facility] [place] [facility] [address] [id number] [place] [address]- 6740 March, [facility] [place] [facility] [address] [id number] [place] [address]- 6171 March, [facility] [place] [facility] [address] [id number] [place] [address]- 2558 March, [facility] [place] [facility] [address] [id number] [place] [address]- 2810 March, [facility] [place] [facility] [address] [id number] [place] [address]- 2939 March, [facility] [place] [facility] [address] [id number] [place] [address]- 2378 March, [facility] [place] [facility] [address] [id number] [place] [address]- 9739 Feb, [facility] [place] [facility] [address] [id number] [place] [address]- 8944 Feb, [facility] [place] [facility] [address] [id number] [place] [address]- 5935 Feb, [facility] [place] [facility] [address] [id number] [place] [address]- 7777 Feb, [facility] [place] [facility] [address] [id number] [place] [address]- 9562 Feb, [facility] [place] [facility] [address] [id number] [place] [address]- 5193 Feb, [facility] [place] [facility] [address] [id number] [place] [address]- 3210 Feb, [facility] [place] [facility] [address] [id number] [place] [address]- 2732 Feb, [facility] [place] [facility] [address] [id number] [place] [address]- 3261 Feb, [facility] [place] [facility] [address] [id number] [place] [address]- 8445 Feb, [facility] [place] [facility] [address] [id number] [place] [address]- 1727 Jan, [facility] [place] [facility] [address] [id number] [place] [address]- 7034 Jan, [facility] [place] [facility] [address] [id number] [place] [address]- 7865 Jan, [facility] [place] [facility] [address] [id number] [place] [address]- 5171 Jan, [facility] [place] [facility] [address] [id number] [place] [address]- 5560 Dec, [facility] [place] [facility] [id number] [address]- 0941 Dec, [facility] [id number] [address] Sep, [facility] [id number] [address] Sep, [facility] [id number] [address] Aug, [facility] [id number] [address] Aug, [facility] [id number] [address] Aug, [facility] [id number] [address] Aug, [facility] [id number] [address] Aug, [facility] [id number] [address] May, [facility] [id number] [address] Jan, [facility] [id number] [address] Jan, [facility] [address] [id number] [address] Dec, IMMUNIZATIONS No Known Immunizations SOCIAL HISTORY Never Assessed REASON FOR VISIT Referral request PLAN OF CARE VITAL SIGNS MEDICATIONS [...]
--- OUTSIDE RECORDS SUMMARY | 2018-10-18 19:43 | XMS REPORT ---
Author Author FLORENCIA HINOJOSA Organization [facility] [place] Address [address] [place] [address] Care Team Providers Care Pneumatic Tester Name Role Phone FLORENCIA HINOJOSA Unavailable PROBLEMS Type Condition ICD9-CM Code VMC68-JR Code Onset Dates Condition Status SNOMED Code Problem Arthritis M19.90 Active 5611868 Problem Chronic fatigue R53.82 Active 68938526 Problem Intractable migraine without aura and without status migrainosus G43.019 Active 782633541 Problem Memory loss R41.3 Active 04307546 Problem Other chronic pain G89.29 Active 90234151 Problem Mental status change resolved Z86.59 Active [id number] ALLERGIES No Information ENCOUNTERS Encounter Location Date Diagnosis [facility] [place] [address] [address] May, 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 [facility] [address] [address] May, Pain in finger of left hand M79.645 [facility] [place] [id number] [place] [address] 73021- 4278 Apr, Intractable migraine without aura and without status migrainosus G43.019 [facility] [place] [id number] [place] [address] 03718- 8164 Apr, Chronic fatigue R53.82 and Dizziness R42 [facility] [place] [id number] [place] [address] 58805- 8912 March, [facility] [place] [address] [address]- [address]229 March, Intractable migraine without aura and without status migrainosus G43.019 [facility] [place] [address] [address]- 0717 March, [facility] [place] [address] [address] 75[address] March, [facility] [place] [id number] [place] [address] 09959- 1990 Feb, Intractable migraine without aura and without status migrainosus G43.019 [facility] [place] [id number] [place] [address] 39615- 9698 Feb, Memory loss R41.3 and 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 [facility] [place] [id number] [place] [address] 14578- 8955 Feb, Intractable migraine without aura and without status migrainosus G43.019 [facility] [place] [id number] [place] [address] 47226- 9947 Jan, Intractable migraine without aura and without status migrainosus G43.019 [facility] [id number] [place] [address] 94555- 0647 Dec, [facility] [place] [id number] [place] [address] 53362- 6424 Dec, Intractable migraine without aura and without status migrainosus G43.019 [facility] [place] [address] [address] Nov, [facility] [facility] [id number] [place] [address] 50159- 5777 Nov, Chronic fatigue R53.82 and Family history of thyroid disease Z83.49 [facility] [place] [id number] [place] [address] 96186- 6106 Nov, Arthritis M19.90 ; Chronic fatigue R53.82 ; Family history of thyroid disease Z83.49 ; Grade IV hemorrhoids K64.3 and Other chronic pain G89.29 [facility] [place] [address] [address] 8561 Nov, Intractable migraine without aura and without status migrainosus G43.019 [facility] [place] [address] [facility] [id number] [address] 8096 Oct, [facility] [place] [id number] [address] 2406 Oct, Intractable migraine without aura and without status migrainosus G43.019 [facility] [place] [id number] [address] 2546 Oct, [facility] [place] [id number] [address] 2546 Oct, [facility] [place] [id number] [place] [address] 16767- 1766 Sep, Tremors of nervous system R25.1 [facility] [place] [id number] [place] [address] 34025- 3336 Sep, [facility] [place] [id number] [place] [address] 96856- 1326 Sep, Intractable migraine without aura and without status migrainosus G43.019 [facility] [place] [id number] [address] 2546 Sep, [facility] [place] [id number] [address] 2546 Sep, [facility] [place] [id number] [address]- 2926 Sep, Acute medial meniscus tear of right knee, initial encounter S83.241A and Acute lateral meniscus tear of left knee, initial encounter S83.282A [facility] [place] [id number] [address] 2546 Aug, Intractable migraine without aura and without status migrainosus G43.019 [facility] [place] [id number] [address] 2546 Aug, [facility] [place] [id number] [address] [address]89 Aug, [facility] [place] [address] [address]- 3527 Jul, [facility] [place] [id number] [place] [address] 76183- 3216 Jul, [facility] [place] [id number] [place] [address] 72783- 0475 Jul, Intractable migraine without aura and without status migrainosus G43.019 ; Memory loss R41.3 ; Mental status change resolved Z86.59 ; Other chronic pain G89.29 and Pain in right knee M25.561 [facility] [place] [id number] [place] [address] 37592- 6772 Jul, [facility] [place] [id number] [place] [address] 69750- 7627 Jun, Tremors of nervous system R25.1 and Pelvic pain R10.2 [facility] [place] [id number] [place] [address] 21495- 0849 Jun, [facility] [place] [id number] [place] [address] 21955- 5121 Jun, [facility] [place] [id number] [place] [address] 08415- 1229 Jun, [facility] [place] [id number] [place] [address] 34682- 1672 May, [facility] [place] [id number] [place] [address] 47443- 3761 May, [facility] [place] [id number] [place] [address] 76791- 9069 May, Kidney pain N23 [facility] [place] [id number] [place] [address] 42247- 9596 May, Pelvic pain R10.2 [facility] [id number] [place] [address] 27778 -6458 May, Wasp sting, accidental or unintentional, initial encounter T63.461A and Allergic contact dermatitis due to other agents L23.89 [facility] [id number] [place] [address] 18916- 0262 May, [facility] [id number] [place] [address] 22099- 2816 May, Pelvic pain R10.2 [facility] [facility] [id number] [place] [address] 58622- 1375 May, [place] [id number] [place] [address] 71526- 5162 Apr, Tremors of nervous system R25.1 ; Blood in stool, gabby K92.1 ; 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 ; Memory loss R41.3 and Intractable migraine without aura and without status migrainosus G43.019 [facility] [facility] [id number] [place] [address] 87040- 3293 Apr, Blood in stool, gabby K92.1 [facility] [id number] [place] [address] 72292- 3177 Apr, Tremors of nervous system R25.1 ; 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 ; Memory loss R41.3 and Intractable migraine without aura and without status migrainosus G43.019 [place] [facility] [id number] [place] [address] 28524- 7929 Apr, [place] [id number] [place] [address] 40832- 254 Apr, Tremor R25.1 [place] [facility] [id number] [place] [address] 93140- 5374 March, [place] [id number] [place] [address] 72133- 9496 March, Cyst of right ovary N83.201 [place] [facility] [id number] [place] [address] 79425- 7149 March, Blood in stool, gabby K92.1 and Other fatigue R53.83 [facility] [place] [id number] [place] [address] 47608- 4966 March, Cyst of right ovary N83.201 [facility] [place] [id number] [place] [address] 33770- 4886 Feb, [facility] [place] [id number] [place] [address] 12371 2546 Feb, [facility] [place] [id number] [place] [address] 31496 2546 Feb, Cyst of right ovary N83.201 and Right lower quadrant abdominal pain R10.31 [facility] [place] [id number] [place] [address] 46596- 3306 Jan, Pelvic pain R10.2 [facility] [place] [id number] [place] [address] 93854- 8676 Jan, [facility] [place] [id number] [place] [address] 57400 2545 Jan, [facility] [place] [id number] [place] [address] 57860- 3760 Jan, Left groin pain R10.30 [facility] [place] [id number] [place] [address] 47391- 9616 Dec, [facility] [place] [id number] [place] [address] 09172 2542 Dec, Pelvic pain R10.2 and Lumbosacral neuritis M54.17 [facility] [place] [id number] [place] [address] 04279 2546 Dec, [facility] [place] [id number] [place] [address] 06277- 2546 Dec, Lymph node enlargement R59.9 [facility] [place] [id number] [place] [address] 66184 2546 Nov, Lymph node enlargement R59.9 [facility] [place] [id number] [place] [address] 21542- 6848 Nov, [facility] [place] [address] 59135- 6994 Nov, Left groin pain R10.30 [facility] [place] [id number] [place] [address] 76530- 9045 Nov, Varicose vein of leg I83.90 ; Essential hypertension I10 and Short lasting unilateral neuralgiform headache with conjunctival injection and tearing (SUNCT), not intractable G44.059 [facility] [id number] [place] [address] 00426 -8919 07 Jul, 2016 Post concussion syndrome F07.81 [facility] [place] [id number] [place] [address] 02009- 0724 07 Jul, 2016 [facility] [place] [address] 95694- 4111 Oct, [facility] [place] [id number] [place] [address] 02146- 1456 Oct, [facility] [place] [id number] [place] [address] 97940- 0753 Aug, [facility] [place] [id number] [place] [address] 01739- 1874 Aug, Obesity 278.00 [facility] [place] [id number] [place] [address] 40385- 0284 Aug, [facility] [place] [id number] [place] [address] 27987- 0722 28 Jul, 2015 Obesity 278.00 and Cervical spondylosis without myelopathy 721.0 [facility] [place] [id number] [place] [address] 62451- 0055 March, [facility] [place] [id number] [place] [address] 07114- 5843 Feb, Cervical spondylosis 721.0 [facility] [place] [facility] [address] [id number] [place] [address]- 2340 14 Feb, 2015 [facility] [place] [facility] [address] [id number] [place] [address]- 2016 Feb, [facility] [place] [facility] [address] [id number] [place] [address]- 7291 Jan, [facility] [place] [facility] [address] [id number] [place] [address]- 2831 Jan, [facility] [place] [facility] [address] [id number] [place] [address]- 2284 Jan, [facility] [place] [facility] [address] [id number] [place] [address]- 7684 Jan, [facility] [place] [facility] [address] [facility] [id number] [place] 6127 Jan, [facility] [place] [facility] [address] [id number] [place] [address]- 5175 Jan, [facility] [place] [facility] [address] [facility] [id number] [place] [address]- 7925 Dec, [facility] [place] [facility] [address] [facility] [id number] [place] [address]- 3474 Dec, [facility] [place] [facility] [address] [facility] [id number] [place] [address]- 4276 Dec, [facility] [place] [facility] [address] [id number], [place] [address]- 3859 Dec, [facility] [place] [facility] [address] [facility] [id number] [place] [address]- 3858 Nov, [facility] [place] [facility] [address] [id number] [place] [address]- 6226 Nov, [facility] [place] [facility] [address] [facility] [id number], [place] [address]- 1049 Nov, [facility] [place] [facility] [address] [facility] [id number], [place] [address]- 8523 15 Nov, 2014 [facility] [place] [facility] [address] [id number] [place] [address]- 6518 Nov, [facility] [place] [facility] [address] [id number] [place] [address]- 4852 Nov, [facility] [place] [facility] [address] [id number] [place] [address]- 8778 Nov, [facility] [place] [facility] [address] [id number] [place] [address]- 6066 Nov, [facility] [place] [facility] [address] [id number] [place] [address]- 5036 Oct, [facility] [place] [facility] [address] [id number] [place] [address]- 5501 Oct, [facility] [place] [facility] [address] [id number] [place] [address]- 5776 Sep, [facility] [place] [facility] [address] [id number] [place] [address]- 6940 Sep, [facility] [place] [facility] [address] [id number] [place] [address]- 5637 Sep, [facility] [place] [facility] [address] [id number] [place] [address]- 5838 Sep, [facility] [place] [facility] [address] [id number] [place] [address]- 6911 29 Jul, 2014 [facility] [place] [facility] [address] [id number] [place] [address]- 7327 29 Jul, 2014 [facility] [place] [facility] [address] [id number] [place] [address]- 7878 26 Jul, 2014 [facility] [place] [facility] [address] [id number] [place] [address]- 1135 26 Jul, 2014 [facility] [place] [facility] [address] [id number] [place] [address]- 0659 19 Jul, 2014 [facility] [place] [facility] [address] [id number] [place] [address]- 3648 Jul, 2013 [facility] [place] [facility] [address] [id number] [place] [address]- 3332 Jul, [facility] [place] [facility] [address] [id number] [place] [address]- 9706 Jul, [facility] [place] [facility] [address] [id number] [place] [address]- 1948 Jul, [facility] [place] [facility] [address] [id number] [place] [address]- 8254 Jul, [facility] [place] [facility] [address] [id number] [place] [address]- 6992 Jun, [facility] [place] [facility] [address] [id number] [place] [address]- 9874 Jun, [facility] [place] [facility] [address] [id number] [place] [address]- 0754 Jun, [facility] [place] [facility] [address] [id number] [place] [address]- 3418 Jun, [facility] [place] [facility] [address] [id number] [place] [address]- 3662 Jun, [facility] [place] [facility] [address] [id number] [place] [address]- 4779 Jun, [facility] [place] [facility] [address] [id number] [place] [address]- 0598 May, [facility] [place] [facility] [address] [id number] [place] [address]- 2573 May, [facility] [place] [facility] [address] [id number] [place] [address]- 4014 May, [facility] [place] [facility] [address] [id number] [place] [address]- 2831 May, [facility] [place] [facility] [address] [id number] [place] [address]- 9019 May, [facility] [place] [facility] [address] [id number] [place] [address]- 6124 07 May, 2014 [facility] [place] [facility] [address] [id number] [place] [address]- 6548 Apr, [facility] [place] [facility] [address] [id number] [place] [address]- 1582 Apr, [facility] [place] [facility] [address] [id number] [place] [address]- 1749 Apr, [facility] [place] [facility] [address] [id number] [place] [address]- 8072 Apr, [facility] [place] [facility] [address] [id number] [place] [address]- 0267 Apr, [facility] [place] [facility] [address] [id number] [place] [address]- 2626 Apr, [facility] [place] [facility] [address] [id number] [place] [address]- 0468 Apr, [facility] [place] [facility] [address] [id number] [place] [address]- 8089 Apr, [facility] [place] [facility] [address] [id number] [place] [address]- 1881 Apr, [facility] [place] [facility] [address] [id number] [place] [address]- 7188 Apr, [facility] [place] [facility] [address] [id number], [place] [address]- 6429 Apr, [facility] [place] [facility] [address] [id number] [place] [address]- 7726 Apr, [facility] [place] [facility] [address] [id number] [place] [address]- 3900 Apr, [facility] [place] [facility] [address] [id number] [place] [address]- 5987 March, [facility] [place] [facility] [address] [id number] [place] [address]- 8488 March, [facility] [place] [facility] [address] [id number] [place] [address]- 5130 March, [facility] [place] [facility] [address] [id number] [place] [address]- 4771 March, [facility] [place] [facility] [address] [id number] [place] [address]- 9972 March, [facility] [place] [facility] [address] [id number] [place] [address]- 9919 March, [facility] [place] [facility] [address] [id number] [place] [address]- 9121 Feb, [facility] [place] [facility] [address] [id number] [place] [address]- 6927 Feb, [facility] [place] [facility] [address] [id number] [place] [address]- 8148 Feb, [facility] [place] [facility] [address] [id number] [place] [address]- 4244 Feb, [facility] [place] [facility] [address] [id number] [place] [address]- 1820 Feb, [facility] [place] [facility] [address] [id number] [place] [address]- 0534 Feb, [facility] [place] [facility] [address] [id number] [place] [address]- 5024 Feb, [facility] [place] [facility] [address] [id number] [place] [address]- 7789 15 Feb, 2014 [facility] [place] [facility] [address] [id number] [place] [address] Feb, [facility] [place] [facility] [address] [id number] [place] [address] Feb, [facility] [place] [facility] [address] [id number] [place] [address] 24 Jan, 2014 [facility] [place] [facility] [address] [id number] [place] [address] Jan, [facility] [place] [facility] [address] [id number] [place] [address] Jan, [facility] [place] [facility] [address] [id number] [place] [address] Jan, [facility] [place] [facility] [address] [id number] [place] [address] Dec, [facility] [place] [facility] [address] [id number] [place] [address] Dec, [facility] [place] [facility] [address] [id number] [place] [address] Sep, [facility] [place] [facility] [address] [id number] [place] [address] Sep, [facility] [place] [facility] [address] [id number] [place] [address] Aug, [facility] [place] [facility] [address] [id number] [place] [address] Aug, [facility] [place] [facility] [address] [id number] [place] [address] Aug, [facility] [place] [facility] [address] [id number] [place] [address] Aug, [facility] [place] [facility] [address] [id number] [place] [address] Aug, [facility] [place] [facility] [address] [id number] [place] [address] May, [facility] [place] [facility] [address] [id number] [place] [address] Jan, [facility] [place] [facility] [address] [id number] [place] [address] Jan, [facility] [place] [facility] [address] [id number] [place] [id number] Dec, IMMUNIZATIONS No Known Immunizations SOCIAL HISTORY [...]
--- OUTSIDE RECORDS SUMMARY | 2018-10-18 19:44 | XMS REPORT ---
Author Author FLORENCIA HINOJOSA Organization [facility] Address [address] [place] [address] Care Team Providers Care Rn Tele Name Role Phone FLORENCIA HINOJOSA Unavailable PROBLEMS Type Condition ICD9-CM Code [id number] Code Onset Dates Condition Status SNOMED Code Problem Arthritis M19.90 Active 3495084 Problem Chronic fatigue R53.82 Active 46846386 Problem Intractable migraine without aura and without status migrainosus G43.019 Active 330746444 Problem Memory loss R41.3 Active 90148983 Problem Other chronic pain G89.29 Active 68472435 Problem Mental status change resolved Z86.59 Active [id number] ALLERGIES No Information ENCOUNTERS Encounter Location Date Diagnosis [facility] [id number] [place] [address] 03399- 4573 Apr, Chronic fatigue R53.82 and Dizziness R42 [facility] [address] 74808- 5716 March, [facility] [id number] [place] [address] 07170- 2061 March, Intractable migraine without aura and without status migrainosus G43.019 [facility] [id number] [place] [address] 87611- 9302 March, [facility] [id number] [place] [address] 58295- 3946 March, [facility] [address] 49727- 1787 Feb, Intractable migraine without aura and without status migrainosus G43.019 [facility] [id number] [place] [address] 96329- 5855 Feb, Memory loss R41.3 and 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 [facility] [id number] [place] [address] 17695- 3205 Feb, Intractable migraine without aura and without status migrainosus G43.019 [facility] [id number] [place] [address] 98636- 7508 Jan, Intractable migraine without aura and without status migrainosus G43.019 [facility] [id number] [place] [address] 06888- 7297 Dec, [facility] [id number] [place] [address] 58008- 0854 Dec, Intractable migraine without aura and without status migrainosus G43.019 [facility] [id number] [place] [address] 61447- 8057 Nov, [facility] [id number] [place] [address] 53923- 8615 Nov, Chronic fatigue R53.82 and Family history of thyroid disease Z83.49 [facility] [id number] [place] [address] 65609- 4125 Nov, Arthritis M19.90 ; Chronic fatigue R53.82 ; Family history of thyroid disease Z83.49 ; Grade IV hemorrhoids K64.3 and Other chronic pain G89.29 [facility] [id number] [place] [address] 73790- 9134 Nov, Intractable migraine without aura and without status migrainosus G43.019 [facility] [id number] [place] [address] 86703- 3931 Oct, [facility] [id number] [place] [address] 81342- 1623 Oct, Intractable migraine without aura and without status migrainosus G43.019 [facility] [id number] [place] [address] 23313- 4057 Oct, [facility] [id number] [address] 2546 Oct, [facility] [address] [facility] [id number] [address] 2546 Sep, Tremors of nervous system R25.1 [facility] [address] [id number], [place] [address] 2546 Sep, [facility] [id number] [place] [address] 87346 2546 Sep, Intractable migraine without aura and without status migrainosus G43.019 [facility] [address] [id number], [place] [address] 2546 Sep, [facility] [id number] [place] [address] 89594 2546 Sep, [facility] [address] [address]- 2546 Sep, Acute medial meniscus tear of right knee, initial encounter S83.241A and Acute lateral meniscus tear of left knee, initial encounter S83.282A [facility] [address] [address] 2546 Aug, Intractable migraine without aura and without status migrainosus G43.019 [facility] [address] [facility] [id number], [place] [address] 2546 Aug, [facility] [address] [id number], [place] [address] 2546 Aug, [facility] [address] [id number], [place] [address] 2546 Jul, [facility] [id number] [place] [address] 16881 2546 Jul, [facility] [address] [id number], [place] [address] 2546 Jul, Intractable migraine without aura and without status migrainosus G43.019 ; Memory loss R41.3 ; Mental status change resolved Z86.59 ; Other chronic pain G89.29 and Pain in right knee M25.561 [facility] [id number] [place] [address] 73147- 6409 Jul, [facility] [id number] [place] [address] 70133- 9485 Jun, Tremors of nervous system R25.1 and Pelvic pain R10.2 [facility] [id number] [place] [address] 82985- 0475 Jun, [facility] [id number] [place] [address] 22238- 3091 Jun, [facility] [id number] [place] [address] 51713- 8768 Jun, [facility] [address] 80097- 1881 May, [facility] [address] 90917- 3579 May, [facility] [id number] [place] [address] 77134- 0295 May, Kidney pain N23 [facility] [id number] [place] [address] 09862- 9289 May, Pelvic pain R10.2 [facility] [id number] [place] [address] 18790 -3263 May, Wasp sting, accidental or unintentional, initial encounter T63.461A and Allergic contact dermatitis due to other agents L23.89 [facility] [id number] [place] [address] 22259- 9771 May, [facility] [id number] [place] [address] 87639- 5629 May, Pelvic pain R10.2 [facility] [id number] [place] [address] 36561- 3414 May, [facility] [address] [facility] [id number] [address] 2546 Apr, Tremors of nervous system R25.1 ; Blood in stool, gabby K92.1 ; 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 ; Memory loss R41.3 and Intractable migraine without aura and without status migrainosus G43.019 [facility] [id number], [place] [address] 2546 Apr, Blood in stool, gabby K92.1 [facility] [id number] [place] [address] 53351 2546 Apr, Tremors of nervous system R25.1 ; 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 ; Memory loss R41.3 and Intractable migraine without aura and without status migrainosus G43.019 [facility] [id number] [place] [address] 66754 2546 Apr, [facility] [id number] [place] [address] 07279 2546 Apr, Tremor R25.1 [facility] [id number] [place] [address] 17363 2546 March, [facility] [id number] [place] [address] 52904 2546 March, Cyst of right ovary N83.201 [facility] [address] [id number], [place] [address] 2546 March, Blood in stool, gabby K92.1 and Other fatigue R53.83 [facility] [id number], [place] [address] 2546 March, Cyst of right ovary N83.201 [facility] [id number] [place] [address] 87867 2546 Feb, [facility] [id number], [place] [address] 2546 Feb, [facility] [id number] [place] [address] 18405- 6410 Feb, Cyst of right ovary N83.201 and Right lower quadrant abdominal pain R10.31 [facility] [id number] [place] [address] 27480- 0521 Jan, Pelvic pain R10.2 [facility] [id number] [place] [address] 57744- 0154 Jan, [facility] [id number] [place] [address] 50311- 7645 Jan, [facility] [id number] [place] [address] 34313- 0283 Jan, Left groin pain R10.30 [facility] [id number] [place] [address] 69591- 3090 Dec, [facility] [id number] [place] [address] 47476- 8551 Dec, Pelvic pain R10.2 and Lumbosacral neuritis M54.17 [facility] [id number] [place] [address] 89791- 5800 Dec, [facility] [id number] [place] [address] 92874- 7532 Dec, Lymph node enlargement R59.9 [facility] [id number] [place] [address] 65759- 6740 Nov, Lymph node enlargement R59.9 [facility] [id number] [place] [address] 19790- 5240 Nov, [facility] [id number] [place] [address] 42229- 3401 Nov, Left groin pain R10.30 [facility] [id number] [place] [address] 51032- 6080 Nov, Varicose vein of leg I83.90 ; Essential hypertension I10 and Short lasting unilateral neuralgiform headache with conjunctival injection and tearing (SUNCT), not intractable G44.059 [facility] [address], [place] [address] -4206 Jul, Post concussion syndrome F07.81 [facility] [id number] [place] [address] 81242- 0490 07 Jul, 2016 [facility] [id number] [place] [address] 32365- 5054 Oct, [facility] [id number] [place] [address] 63255- 3319 Oct, [facility] [id number] [place] [address] 21082- 2563 Aug, [facility] [id number] [place] [address] 22536- 3066 Aug, Obesity 278.00 [facility] [id number] [place] [address] 43558- 4136 Aug, [facility] [id number] [place] [address] 19796- 0119 Jul, Obesity 278.00 and Cervical spondylosis without myelopathy 721.0 [facility] [id number] [place] [address] 08006- 2602 March, [facility] [id number] [place] [address] 92102- 2572 Feb, Cervical spondylosis 721.0 [facility] [id number] [place] [address] 80633- 6639 Feb, [facility] [id number] [place] [address] 45127- 2379 Feb, [facility] [id number] [place] [address] 30540- 2851 Jan, [facility] [id number] [place] [address] 13055- 1689 Jan, [facility] [place] [facility] [address] [id number] [place] [address]- 1546 Jan, [facility] [place] [facility] [address] [id number] [place] [address]- 2308 Jan, [facility] [place] [facility] [address] [id number] [place] [address]- 4681 Jan, [facility] [place] [facility] [address] [id number] [place] [address]- 7767 Jan, [facility] [place] [facility] [address] [id number] [place] [address]- 0514 Dec, 2014 [facility] [place] [facility] [address] [id number] [place] [address]- 0303 Dec, [facility] [place] [facility] [address] [id number] [place] [address]- 8163 Dec, [facility] [place] [facility] [address] [id number] [place] [address]- 9383 Dec, [facility] [place] [facility] [address] [id number] [place] [address]- 4049 Nov, [facility] [place] [facility] [address] [id number] [place] [address]- 0982 Nov, [facility] [place] [facility] [address] [id number] [place] [address]- 3744 16 Nov, 2014 [facility] [place] [facility] [address] [id number] [place] [address]- 8889 15 Nov, 2014 [facility] [place] [facility] [address] [id number] [place] [address]- 8166 Nov, [facility] [place] [facility] [address] [id number] [place] [address]- 4652 Nov, [facility] [place] [facility] [address] [id number] [place] [address]- 0329 Nov, [facility] [place] [facility] [address] [id number] [place] [address]- 5083 Nov, [facility] [place] [facility] [address] [id number] [place] [address]- 0768 Oct, [facility] [place] [facility] [address] [id number] [place] [address]- 1928 Oct, [facility] [place] [facility] [address] [id number] [place] [address]- 4537 Sep, [facility] [place] [facility] [address] [id number] [place] [address]- 9876 Sep, [facility] [place] [facility] [address] [id number] [place] [address]- 4608 Sep, [facility] [place] [facility] [address] [id number] [place] [address]- 1660 Sep, [facility] [place] [facility] [address] [id number] [place] [address]- 2941 29 Jul, 2014 [facility] [place] [facility] [address] [id number] [place] [address]- 4048 29 Jul, 2014 [facility] [place] [facility] [address] [id number] [place] [address]- 2545 26 Jul, 2014 [facility] [place] [facility] [address] [id number] [place] [address]- 2540 26 Jul, 2013 [facility] [place] [facility] [address] [id number] [place] [address]- 4375 19 Jul, 2013 [facility] [place] [facility] [address] [id number] [place] [address]- 2542 19 Jul, 2013 [facility] [place] [facility] [address] [id number] [place] [address]- 2547 19 Jul, 2013 [facility] [place] [facility] [address] [id number] [place] [address]- 2547 Jul, 2013 [facility] [place] [facility] [address] [id number] [place] [address]- 2543 09 Jul, 2013 [facility] [place] [facility] [address] [id number] [place] [address]- 7075 Jul, [facility] [place] [facility] [address] [id number] [place] [address]- 0286 Jun, [facility] [place] [facility] [address] [id number] [place] [address]- 6004 Jun, [facility] [place] [facility] [address] [id number] [place] [address]- 8291 Jun, [facility] [place] [facility] [address] [id number] [place] [address]- 2491 Jun, [facility] [place] [facility] [address] [id number] [place] [address]- 5055 Jun, [facility] [place] [facility] [address] [id number] [place] [address]- 4094 Jun, [facility] [place] [facility] [address] [id number] [place] [address]- 0516 May, [facility] [place] [facility] [address] [id number] [place] [address]- 5768 May, [facility] [place] [facility] [address] [id number] [place] [address]- 5668 May, [facility] [place] [facility] [address] [id number] [place] [address]- 6098 May, [facility] [place] [facility] [address] [id number] [place] [address]- 9601 May, [facility] [place] [facility] [address] [id number] [place] [address]- 9433 May, [facility] [place] [facility] [address] [id number] [place] [address]- 6747 Apr, [facility] [place] [facility] [address] [id number] [place] [address]- 1662 Apr, [facility] [place] [facility] [address] [id number] [place] 4069 Apr, [facility] [place] [facility] [address] [id number] [place] [address]- 0224 Apr, [facility] [place] [facility] [address] [id number] [place] [address]- 7210 Apr, [facility] [place] [facility] [address] [id number] [place] [address]- 0818 Apr, [facility] [place] [facility] [address] [id number] [place] [address]- 5553 Apr, [facility] [place] [facility] [address] [id number] [place] [address]- 7302 Apr, [facility] [place] [facility] [address] [id number] [place] [address]- 5462 Apr, [facility] [place] [facility] [address] [id number] [place] [address]- 8355 Apr, [facility] [place] [facility] [address] [id number] [place] [address]- 0693 Apr, [facility] [place] [facility] [address] [id number] [place] [address]- 5340 Apr, [facility] [place] [facility] [address] [id number] [place] [address]- 1882 Apr, [facility] [place] [facility] [address] [id number] [place] [address]- 3872 March, [facility] [place] [facility] [address] [id number], [place] [address]- 9845 March, [facility] [place] [facility] [address] [id number] [place] [address]- 1655 March, [facility] [place] [facility] [address] [id number] [place] [address]- 6878 March, [facility] [place] [facility] [address] [id number] [place] [address]- 2706 March, [facility] [place] [facility] [address] [id number], [place] [address]- 2436 March, [facility] [address] [id number] [place] [address]- 8104 30 Feb, 2014 [facility] [place] [facility] [address] [id number] [place] [address]- 9606 30 Feb, 2014 [facility] [place] [facility] [address] [id number] [place] [address]- 7272 Feb, [facility] [place] [facility] [address] [id number] [place] [address]- 6272 Feb, [facility] [place] [facility] [address] [id number] [place] [address]- 0047 Feb, [facility] [place] [facility] [address] [id number] [place] [address]- 9923 Feb, [facility] [place] [facility] [address] [id number] [place] [address]- 0129 Feb, [facility] [place] [facility] [address] [id number] [place] [address]- 0906 Feb, [facility] [place] [facility] [address] [id number] [place] [address]- 0980 Feb, [facility] [place] [facility] [address] [id number] [place] [address]- 9270 Feb, [facility] [place] [facility] [address] [id number] [place] [address]- 8472 Jan, [facility] [place] [facility] [address] [id number] [place] [address]- 2314 Jan, [facility] [place] [facility] [address] [id number] [place] [address]- 0095 Jan, [facility] [place] [facility] [address] [id number] [place] [address]- 6053 Jan, [facility] [place] [facility] [address] [id number] [place] [address]- 0722 Dec, [facility] [place] [facility] [address] [facility] [id number], [place] [address]- 5060 Dec, [facility] [address] [facility] [id number]- 2513 Sep, [facility] [address] [facility] [id number], [place] [address]- 4330 Sep, [facility] [address] [facility] [id number]- 4156 Aug, [facility] [address] [facility] [id number], [place] [address]- 4[address] Aug, [facility] [address] [facility] [id number] [address] Aug, [facility] [id number] [address] Aug, [facility] [id number], [place] [address] Aug, [facility] [id number], [place] [address] May, [facility] [id number], [place] [address] Jan, [facility] [id number], [place] [address] Jan, [facility] [address] [id number] [id number] Dec, IMMUNIZATIONS No Known Immunizations SOCIAL HISTORY Never Assessed REASON FOR VISIT request return call PLAN OF CARE VITAL SIGNS MEDICATIONS No Known Medications RESULTS No Results PROCEDURES No Known procedures INSTRUCTIONS MEDICATIONS ADMINISTERED No Known Medications MEDICAL (GENERAL) HISTORY Type Description Date Medical History Asthma Medical History Hives since 2000 Surgical History spinal fusion 2015 Surgical History Tonsillectomy Surgical History Appendectomy Surgical History section Surgical History epidural anesthesia/injection Surgical History Hemorrhoidecomy with umu Surgical History colonoscopy
--- OUTSIDE RECORDS SUMMARY | 2018-10-18 19:45 | XMS REPORT ---
Author Author FLORENCIA HINOJOSA Organization [facility] Address [address] [place] [address] Care Team Providers Care Caddie Supervisor Name Role Phone FLORENCIA HINOJOSA Unavailable PROBLEMS Type Condition ICD9-CM Code TXC83-GY Code Onset Dates Condition Status SNOMED Code Problem Arthritis M19.90 Active 2458718 Problem Chronic fatigue R53.82 Active 98069474 Problem Intractable migraine without aura and without status migrainosus G43.019 Active 672922759 Problem Memory loss R41.3 Active 54156619 Problem Other chronic pain G89.29 Active 45441065 Problem Mental status change resolved Z86.59 Active [id number] ALLERGIES No Information ENCOUNTERS Encounter Location Date Diagnosis [facility] [id number] [place] [address] 51633- 3227 Apr, Chronic fatigue R53.82 and Dizziness R42 [facility] [address] 43472- 5677 March, [facility] [id number] [place] [address] 08751- 1772 March, Intractable migraine without aura and without status migrainosus G43.019 [facility] [id number] [place] [address] 50133- 9622 March, [facility] [id number] [place] [address] 28368- 1877 March, [facility] [address] 82251- 7340 Feb, Intractable migraine without aura and without status migrainosus G43.019 [facility] [id number] [place] [address] 25696- 8082 Feb, Memory loss R41.3 and 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 [facility] [id number] [place] [address] 29905- 6144 Feb, Intractable migraine without aura and without status migrainosus G43.019 [facility] [id number] [place] [address] 91171- 2017 Jan, Intractable migraine without aura and without status migrainosus G43.019 [facility] [id number] [place] [address] 56622- 4184 Dec, [facility] [id number] [place] [address] 69079- 0236 Dec, Intractable migraine without aura and without status migrainosus G43.019 [facility] [id number] [place] [address] 17636- 4920 Nov, [facility] [id number] [place] [address] 75758- 9671 Nov, Chronic fatigue R53.82 and Family history of thyroid disease Z83.49 [facility] [id number] [place] [address] 56504- 5867 Nov, Arthritis M19.90 ; Chronic fatigue R53.82 ; Family history of thyroid disease Z83.49 ; Grade IV hemorrhoids K64.3 and Other chronic pain G89.29 [facility] [id number] [place] [address] 86474- 5613 Nov, Intractable migraine without aura and without status migrainosus G43.019 [facility] [id number] [place] [address] 41909- 2472 Oct, [facility] [id number] [place] [address] 46187- 4748 Oct, Intractable migraine without aura and without status migrainosus G43.019 [facility] [id number] [place] [address] 03360- 8753 Oct, [facility] [id number] [address] 2546 Oct, [facility] [address] [facility] [id number] [address] 2546 Sep, Tremors of nervous system R25.1 [facility] [id number] [address] 2546 Sep, [facility] [id number] [place] [address] 83189 2546 Sep, Intractable migraine without aura and without status migrainosus G43.019 [facility] [id number] [address] 2546 Sep, [facility] [id number] [place] [address] 64283 2546 Sep, [facility] [id number] [address]- 2546 Sep, Acute medial meniscus tear of right knee, initial encounter S83.241A and Acute lateral meniscus tear of left knee, initial encounter S83.282A [facility] [address] [address] 2546 Aug, Intractable migraine without aura and without status migrainosus G43.019 [facility] [address] [facility] [id number] [address] 2546 Aug, [facility] [id number] [address] 2546 Aug, [facility] [id number] [address] 2546 Jul, [facility] [id number] [place] [address] 25238 2546 Jul, [facility] [id number] [address] 2546 Jul, Intractable migraine without aura and without status migrainosus G43.019 ; Memory loss R41.3 ; Mental status change resolved Z86.59 ; Other chronic pain G89.29 and Pain in right knee M25.561 [facility] [id number] [place] [address] 47615- 6817 Jul, [facility] [id number] [place] [address] 22212- 0163 Jun, Tremors of nervous system R25.1 and Pelvic pain R10.2 [facility] [id number] [place] [address] 90617- 6490 Jun, [facility] [id number] [place] [address] 83769- 3369 Jun, [facility] [id number] [place] [address] 35737- 5536 Jun, [facility] [address] 33572- 3230 May, [facility] [address] 43807- 6488 May, [facility] [id number] [place] [address] 45566- 6384 May, Kidney pain N23 [facility] [id number] [place] [address] 30015- 8692 May, Pelvic pain R10.2 [facility] [id number] [place] [address] 14684 -1602 May, Wasp sting, accidental or unintentional, initial encounter T63.461A and Allergic contact dermatitis due to other agents L23.89 [facility] [id number] [place] [address] 66741- 0165 May, [facility] [id number] [place] [address] 53637- 8485 May, Pelvic pain R10.2 [facility] [id number] [place] [address] 28237- 9431 May, [facility] [address] [facility] [id number] [address] 2546 Apr, Tremors of nervous system R25.1 ; Blood in stool, gabby K92.1 ; 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 ; Memory loss R41.3 and Intractable migraine without aura and without status migrainosus G43.019 [facility] [id number] [address] 2546 Apr, Blood in stool, gabby K92.1 [facility] [id number] [place] [address] 74147 2546 Apr, Tremors of nervous system R25.1 ; 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 ; Memory loss R41.3 and Intractable migraine without aura and without status migrainosus G43.019 [facility] [id number] [place] [address] 70694 2546 Apr, [facility] [id number] [place] [address] 22102 2546 Apr, Tremor R25.1 [facility] [id number] [place] [address] 40387 2546 March, [facility] [id number] [place] [address] 59819 2546 March, Cyst of right ovary N83.201 [facility] [address] [id number] [address] 2546 March, Blood in stool, gabby K92.1 and Other fatigue R53.83 [facility] [id number] [address] 2546 March, Cyst of right ovary N83.201 [facility] [id number] [place] [address] 56212 2546 Feb, [facility] [id number] [address] 2546 Feb, [facility] [id number] [place] [address] 54479- 9515 Feb, Cyst of right ovary N83.201 and Right lower quadrant abdominal pain R10.31 [facility] [id number] [place] [address] 17740- 3024 Jan, Pelvic pain R10.2 [facility] [id number] [place] [address] 03884- 1001 Jan, [facility] [id number] [place] [address] 20299- 1210 Jan, [facility] [id number] [place] [address] 59900- 2835 Jan, Left groin pain R10.30 [facility] [id number] [place] [address] 52297- 1006 Dec, [facility] [id number] [place] [address] 01272- 0533 Dec, Pelvic pain R10.2 and Lumbosacral neuritis M54.17 [facility] [id number] [place] [address] 04247- 0168 Dec, [facility] [id number] [place] [address] 70877- 1730 Dec, Lymph node enlargement R59.9 [facility] [id number] [place] [address] 44787- 0984 Nov, Lymph node enlargement R59.9 [facility] [id number] [place] [address] 39631- 0813 Nov, [facility] [id number] [place] [address] 66965- 3993 Nov, Left groin pain R10.30 [facility] [id number] [place] [address] 08657- 4549 Nov, Varicose vein of leg I83.90 ; Essential hypertension I10 and Short lasting unilateral neuralgiform headache with conjunctival injection and tearing (SUNCT), not intractable G44.059 [facility] [address] [address] -8664 Jul, Post concussion syndrome F07.81 [facility] [id number] [place] [address] 16077- 0870 07 Jul, 2016 [facility] [id number] [place] [address] 46511- 0697 Oct, [facility] [id number] [place] [address] 19186- 5245 Oct, [facility] [id number] [place] [address] 24200- 7750 Aug, [facility] [id number] [place] [address] 69393- 6071 Aug, Obesity 278.00 [facility] [id number] [place] [address] 24705- 3033 Aug, [facility] [id number] [place] [address] 88900- 8039 Jul, Obesity 278.00 and Cervical spondylosis without myelopathy 721.0 [facility] [id number] [place] [address] 71204- 5518 March, [facility] [id number] [place] [address] 29493- 0822 Feb, Cervical spondylosis 721.0 [facility] [id number] [place] [address] 17017- 6891 Feb, [facility] [id number] [place] [address] 16687- 4471 Feb, [facility] [id number] [place] [address] 03289- 9316 Jan, [facility] [id number] [place] [address] 11452- 1122 Jan, [facility] [place] [facility] [address] [id number] [place] [address]- 6878 Jan, [facility] [place] [facility] [address] [id number] [place] [address]- 3058 Jan, [facility] [place] [facility] [address] [id number] [place] [address]- 3149 Jan, [facility] [place] [facility] [address] [id number] [place] [address]- 1987 Jan, [facility] [place] [facility] [address] [id number] [place] [address]- 9030 Dec, 2014 [facility] [place] [facility] [address] [id number] [place] [address]- 2264 Dec, [facility] [place] [facility] [address] [id number] [place] [address]- 2651 Dec, [facility] [place] [facility] [address] [id number] [place] [address]- 0923 Dec, [facility] [place] [facility] [address] [id number] [place] [address]- 5976 Nov, [facility] [place] [facility] [address] [id number] [place] [address]- 7649 Nov, [facility] [place] [facility] [address] [id number] [place] [address]- 3088 16 Nov, 2014 [facility] [place] [facility] [address] [id number] [place] [address]- 0886 15 Nov, 2014 [facility] [place] [facility] [address] [id number] [place] [address]- 9433 Nov, [facility] [place] [facility] [address] [id number] [place] [address]- 3296 Nov, [facility] [place] [facility] [address] [id number] [place] [address]- 0209 Nov, [facility] [place] [facility] [address] [id number] [place] [address]- 7192 Nov, [facility] [place] [facility] [address] [id number] [place] [address]- 0393 Oct, [facility] [place] [facility] [address] [id number] [place] [address]- 1619 Oct, [facility] [place] [facility] [address] [id number] [place] [address]- 8913 Sep, [facility] [place] [facility] [address] [id number] [place] [address]- 4802 Sep, [facility] [place] [facility] [address] [id number] [place] [address]- 3404 Sep, [facility] [place] [facility] [address] [id number] [place] [address]- 4259 Sep, [facility] [place] [facility] [address] [id number] [place] [address]- 5620 29 Jul, 2014 [facility] [place] [facility] [address] [id number] [place] [address]- 0560 29 Jul, 2014 [facility] [place] [facility] [address] [id number] [place] [address]- 2548 26 Jul, 2014 [facility] [place] [facility] [address] [id number] [place] [address]- 2544 26 Jul, 2013 [facility] [place] [facility] [address] [id number] [place] [address]- 3793 19 Jul, 2013 [facility] [place] [facility] [address] [id number] [place] [address]- 2543 19 Jul, 2013 [facility] [place] [facility] [address] [id number] [place] [address]- 2542 19 Jul, 2013 [facility] [place] [facility] [address] [id number] [place] [address]- 254 Jul, 2013 [facility] [place] [facility] [address] [id number] [place] [address]- 2545 09 Jul, 2013 [facility] [place] [facility] [address] [id number] [place] [address]- 8085 Jul, [facility] [place] [facility] [address] [id number] [place] [address]- 4858 Jun, [facility] [place] [facility] [address] [id number] [place] [address]- 9946 Jun, [facility] [place] [facility] [address] [id number] [place] [address]- 4212 Jun, [facility] [place] [facility] [address] [id number] [place] [address]- 0819 Jun, [facility] [place] [facility] [address] [id number] [place] [address]- 2592 Jun, [facility] [place] [facility] [address] [id number] [place] [address]- 8037 Jun, [facility] [place] [facility] [address] [id number] [place] [address]- 7102 May, [facility] [place] [facility] [address] [id number] [place] [address]- 4825 May, [facility] [place] [facility] [address] [id number] [place] [address]- 4328 May, [facility] [place] [facility] [address] [id number] [place] [address]- 0259 May, [facility] [place] [facility] [address] [id number] [place] [address]- 3300 May, [facility] [place] [facility] [address] [id number] [place] [address]- 0770 May, [facility] [place] [facility] [address] [id number] [place] [address]- 1148 Apr, [facility] [place] [facility] [address] [id number] [place] [address]- 8656 Apr, [facility] [place] [facility] [address] [id number] [place]- 6941 Apr, [facility] [place] [facility] [address] [id number] [place] [address]- 2196 Apr, [facility] [place] [facility] [address] [id number] [place] [address]- 5304 Apr, [facility] [place] [facility] [address] [id number] [place] [address]- 1762 Apr, [facility] [place] [facility] [address] [id number] [place] [address]- 3514 Apr, [facility] [place] [facility] [address] [id number] [place] [address]- 4141 Apr, [facility] [place] [facility] [address] [id number] [place] [address]- 6519 Apr, [facility] [place] [facility] [address] [id number] [place] [address]- 2692 Apr, [facility] [place] [facility] [address] [id number] [place] [address]- 0646 Apr, [facility] [place] [facility] [address] [id number] [place] [address]- 7871 Apr, [facility] [place] [facility] [address] [id number] [place] [address]- 8869 Apr, [facility] [place] [facility] [address] [id number] [place] [address]- 0288 March, [facility] [place] [facility] [address] [id number] [address]- 6194 March, [facility] [place] [facility] [address] [id number] [place] [address]- 1809 March, [facility] [place] [facility] [address] [id number] [place] [address]- 6034 March, [facility] [place] [facility] [address] [id number] [place] [address]- 3984 March, [facility] [place] [facility] [address] [id number] [address]- 0856 March, [facility] [address] [id number] [place] [address]- 1858 30 Feb, 2014 [facility] [place] [facility] [address] [id number] [place] [address]- 5996 30 Feb, 2014 [facility] [place] [facility] [address] [id number] [place] [address]- 4154 Feb, [facility] [place] [facility] [address] [id number] [place] [address]- 6325 Feb, [facility] [place] [facility] [address] [id number] [place] [address]- 6475 Feb, [facility] [place] [facility] [address] [id number] [place] [address]- 8937 Feb, [facility] [place] [facility] [address] [id number] [place] [address]- 5982 Feb, [facility] [place] [facility] [address] [id number] [place] [address]- 2107 Feb, [facility] [place] [facility] [address] [id number] [place] [address]- 7252 Feb, [facility] [place] [facility] [address] [id number] [place] [address]- 0236 Feb, [facility] [place] [facility] [address] [id number] [place] [address]- 6797 Jan, [facility] [place] [facility] [address] [id number] [place] [address]- 4829 Jan, [facility] [place] [facility] [address] [id number] [place] [address]- 5968 Jan, [facility] [place] [facility] [address] [id number] [place] [address]- 1178 Jan, [facility] [place] [facility] [address] [id number] [place] [address]- 5625 Dec, [facility] [place] [facility] [id number] [address]- 3868 Dec, [facility] [id number] [address]- 5340 Sep, [facility] [id number] [address]- 7483 Sep, [facility] [id number] 3199 Aug, [facility] [address] [facility] [id number] [address]- 9605 Aug, [facility] [id number] 0397 Aug, [facility] [id number] [address]- 2326 Aug, [facility] [id number] [address]- 8937 Aug, [facility] [id number] [address]- 3605 May, [facility] [id number] [address]- 9503 Jan, [facility] [id number] [address]- 3930 Jan, [facility] [address] [address]- 3030 Dec, IMMUNIZATIONS No Known Immunizations SOCIAL HISTORY Never Assessed REASON FOR VISIT Controlled med refill 11/06/17 PLAN OF CARE VITAL SIGNS MEDICATIONS Medication Instructions Dosage Frequency Start Date End Date Duration Status Oxycodone HCl 10 mg Orally 4 times a day 1 tablet as needed 6h Oct, 28 days Active RESULTS No Results PROCEDURES No Known procedures INSTRUCTIONS MEDICATIONS ADMINISTERED No Known Medications MEDICAL (GENERAL) HISTORY Type Description Date Medical History Asthma Medical History Hives since 2000 Surgical History spinal fusion 2014 Surgical History Tonsillectomy Surgical History Appendectomy Surgical History section Surgical History epidural anesthesia/injection Surgical History Hemorrhoidecomy with umu Surgical History colonoscopy
--- OUTSIDE RECORDS SUMMARY | 2018-10-18 19:45 | XMS REPORT ---
Author Author FLORENCIA HINOJOSA Organization [facility] Address [address] [place] [address] Care Team Providers Care Field Party Manager Name Role Phone FLORENCIA HINOJOSA Unavailable PROBLEMS Type Condition ICD9-CM Code SKH15-QC Code Onset Dates Condition Status SNOMED Code Problem Arthritis M19.90 Active 0942005 Problem Chronic fatigue R53.82 Active 56231636 Problem Intractable migraine without aura and without status migrainosus G43.019 Active 807427353 Problem Memory loss R41.3 Active 61014695 Problem Other chronic pain G89.29 Active 35569631 Problem Mental status change resolved Z86.59 Active [id number] ALLERGIES No Information ENCOUNTERS Encounter Location Date Diagnosis [facility] [id number] [place] [address] 13754- 0607 Apr, [facility] [id number] [place] [address] 24299- 9963 March, [facility] [id number] [place] [address] 02216- 0687 March, Intractable migraine without aura and without status migrainosus G43.019 [facility] [id number] [place] [address] 09545- 8227 March, [facility] [id number] [place] [address] 78828- 9553 March, [facility] [id number] [place] [address] 07091- 2496 Feb, Intractable migraine without aura and without status migrainosus G43.019 [facility] [id number] [place] [address] 65501- 7019 Feb, Memory loss R41.3 and Pineal gland cyst E34.8 [facility] [id number] [address] 9456 Feb, Intractable migraine without aura and without status migrainosus G43.019 [facility] [address] [address] 2546 Jan, Intractable migraine without aura and without status migrainosus G43.019 [address] [place] [address]- 39[address] Dec, [facility] [id number] [place] [address] 74850 2546 Dec, Intractable migraine without aura and without status migrainosus G43.019 [address] [place] [id number] [place] [address] 85231- 9656 Nov, [facility] [facility] [id number] [address]- 0006 Nov, Chronic fatigue R53.82 and Family history of thyroid disease Z83.49 [facility] [id number] [address] 7965 Nov, Arthritis M19.90 ; Chronic fatigue R53.82 ; Family history of thyroid disease Z83.49 ; Grade IV hemorrhoids K64.3 and Other chronic pain G89.29 [place] [address] [address]- 5339 Nov, Intractable migraine without aura and without status migrainosus G43.019 [address] [place] [address] [address]- 1206 Oct, [place] [address] [address] 2546 Oct, Intractable migraine without aura and without status migrainosus G43.019 [facility] [address], [place] [address] 2546 Oct, [place] [id number] [place] [address] 43536 2546 Oct, [facility] [address] [address] 2546 Sep, Tremors of nervous system R25.1 [facility] [id number] [address] 2546 Sep, [facility] [address] [address]- 2276 Sep, Intractable migraine without aura and without status migrainosus G43.019 [facility] [address] [facility] [id number] [address] 2546 Sep, [facility] [id number] [place] [address] 03157- 0126 Sep, [facility] [address] [address]- 2546 Sep, Acute medial meniscus tear of right knee, initial encounter S83.241A and Acute lateral meniscus tear of left knee, initial encounter S83.282A [facility] [address], [place] [address] 2546 Aug, Intractable migraine without aura and without status migrainosus G43.019 [facility] [id number] [address] 2546 Aug, [facility] [address], [place] [address] 2546 Aug, [facility] [address], [place] [address] 2546 Jul, [facility] [address], [place] [address] 2546 Jul, [facility] [address], [place] [address] 2546 Jul, Intractable migraine without aura and without status migrainosus G43.019 ; Memory loss R41.3 ; Mental status change resolved Z86.59 ; Other chronic pain G89.29 and Pain in right knee M25.561 [facility] [id number] [place] [address] 03389- 7349 Jul, [facility] [id number] [place] [address] 40161- 2650 Jun, Tremors of nervous system R25.1 and Pelvic pain R10.2 [facility] [id number] [place] [address] 35865- 6446 Jun, [facility] [id number] [place] [address] 57365- 3339 Jun, [facility] [id number] [place] [address] 40388- 7485 Jun, [facility] [id number] [place] [address] 77014- 7927 May, [facility] [id number] [place] [address] 60619- 1313 May, [facility] [id number] [place] [address] 61794- 2877 May, Kidney pain N23 [facility] [id number] [place] [address] 55641- 3853 May, Pelvic pain R10.2 [facility] [id number] [place] [address] 72573 -4880 May, Wasp sting, accidental or unintentional, initial encounter T63.461A and Allergic contact dermatitis due to other agents L23.89 [facility] [id number] [place] [address] 67327- 0766 May, [facility] [id number] [place] [address] 38943- 1616 May, Pelvic pain R10.2 [facility] [id number] [place] [address] 82943- 9316 May, [facility] [id number] [place] [address] 71347 2546 Apr, Tremors of nervous system R25.1 ; Blood in stool, gabby K92.1 ; Pineal gland cyst E34.8 ; Memory loss R41.3 and Intractable migraine without aura and without status migrainosus G43.019 [facility] [address], [place] [address] 2546 Apr, Blood in stool, gabby K92.1 [facility] [id number] [place] [address] 09870 2546 Apr, Tremors of nervous system R25.1 ; Pineal gland cyst E34.8 ; Memory loss R41.3 and Intractable migraine without aura and without status migrainosus G43.019 [facility] [id number] [place] [address] 45019 2546 Apr, [facility] [id number] [place] [address] 38335- 8236 Apr, Tremor R25.1 [facility] [id number] [place] [address] 48094- 4306 March, [facility] [id number] [place] [address] 08880- 3366 March, Cyst of right ovary N83.201 [facility] [id number] [place] [address] 10729- 2946 March, Blood in stool, gabby K92.1 and Other fatigue R53.83 [facility] [id number] [place] [address] 27261 2546 March, Cyst of right ovary N83.201 [facility] [id number] [place] [address] 94761- 9236 Feb, [facility] [id number] [place] [address] 35489- 2546 Feb, [facility] [id number] [place] [address] 58102- 1846 Feb, Cyst of right ovary N83.201 and Right lower quadrant abdominal pain R10.31 [facility] [id number] [place] [address] 41795 2546 Jan, Pelvic pain R10.2 [facility] [id number] [place] [address] 61301 2546 Jan, [facility] [id number] [place] [address] 70629 2546 Jan, [facility] [id number] [place] [address] 13807 2540 Jan, Left groin pain R10.30 [facility] [id number] [place] [address] 65082- 9396 Dec, [facility] [id number] [place] [address] 28129- 2132 Dec, Pelvic pain R10.2 and Lumbosacral neuritis M54.17 [facility] [id number] [place] [address] 68079- 9142 Dec, [facility] [id number] [place] [address] 17300- 6636 Dec, Lymph node enlargement R59.9 [facility] [id number] [place] [address] 10091- 3937 Nov, Lymph node enlargement R59.9 [facility] [id number] [place] [address] 91306 254 Nov, [facility] [id number] [place] [address] 90820- 1736 Nov, Left groin pain R10.30 [facility] [id number] [place] [address] 96542- 2546 Nov, Varicose vein of leg I83.90 ; Essential hypertension I10 and Short lasting unilateral neuralgiform headache with conjunctival injection and tearing (SUNCT), not intractable G44.059 [facility] [address], [place] [address] -[address]67 07 Jul, 2016 Post concussion syndrome F07.81 [facility] [address] [place] [address] 89985- 8219 07 Jul, 2016 [facility] [id number] [place] [address] 66496- 0137 Oct, [facility] [id number] [place] [address] 87189- 8135 Oct, [facility] [id number] [place] [address] 84674- 8395 Aug, [facility] [id number] [place] [address] 96715- 0350 Aug, Obesity 278.00 [facility] [id number] [place] [address] 56982- 2747 Aug, [facility] [id number] [place] [address] 85898- 5347 Jul, Obesity 278.00 and Cervical spondylosis without myelopathy 721.0 [facility] [id number] [place] [address] 76351- 3633 March, [facility] [id number] [place] [address] 81170- 1766 30 Feb, 2015 Cervical spondylosis 721.0 [facility] [address], [place] [address]- 9435 Feb, [facility] [id number] [place] [address] 52410- 8108 Feb, [facility] [id number] [place] [address] 693379- 7396 Jan, [facility] [address], [place] [address]- 3902 Jan, [facility] [id number] [place] [address], [place] [address]- 0977 Jan, [facility] [place] [facility] [address] [id number] [place] [address]- 4586 Jan, [facility] [place] [facility] [address] [id number] [place] [address]- 2111 Jan, [facility] [place] [facility] [address] [id number] [place] [address]- 3265 Jan, [facility] [place] [facility] [address] [id number] [place] [address]- 1543 Dec, [facility] [place] [facility] [address] [id number] [place] [address]- 5601 Dec, 2014 [facility] [place] [facility] [address] [id number] [place] [address]- 8837 Dec, [facility] [place] [facility] [address] [id number] [place] [address]- 1792 Dec, [facility] [place] [facility] [address] [id number] [place] [address]- 5245 Nov, [facility] [place] [facility] [address] [id number] [place] [address]- 9837 Nov, [facility] [place] [facility] [address] [id number] [place] [address]- 5210 Nov, [facility] [place] [facility] [address] [id number] [place] [address]- 6761 Nov, [facility] [place] [facility] [address] [id number] [place] [address]- 3071 Nov, [facility] [place] [facility] [address] [id number] [place] [address]- 6912 Nov, [facility] [place] [facility] [address] [id number] [place] [address]- 4244 Nov, [facility] [place] [facility] [address] [id number] [place] [address]- 0531 Nov, [facility] [place] [facility] [address] [id number] [place] [address]- 5696 Oct, [facility] [place] [facility] [address] [id number] [place] [address]- 0706 Oct, [facility] [place] [facility] [address] [id number] [place] [address]- 9933 Sep, [facility] [place] [facility] [address] [id number] [place] [address]- 1616 Sep, [facility] [place] [facility] [address] [id number] [place] [address]- 5617 Sep, [facility] [place] [facility] [address] [id number] [place] [address]- 6418 Sep, [facility] [place] [facility] [address] [id number] [place] [address]- 7849 29 Jul, 2014 [facility] [place] [facility] [address] [id number] [place] [address]- 4677 29 Jul, 2014 [facility] [place] [facility] [address] [id number] [place] [address]- 0666 26 Jul, 2014 [facility] [place] [facility] [address] [id number] [place] [address]- 8512 26 Jul, 2014 [facility] [place] [facility] [address] [id number] [place] [address]- 5926 19 Jul, 2013 [facility] [place] [facility] [address] [id number] [place] [address]- 1806 19 Jul, 2013 [facility] [place] [facility] [address] [id number] [place] [address]- 254 19 Jul, 2013 [facility] [place] [facility] [address] [id number] [place] [address]- 4896 19 Jul, 2013 [facility] [place] [facility] [address] [id number] [place] [address]- 0854 09 Jul, 2013 [facility] [place] [facility] [address] [id number] [place] [address]- 9161 Jul, [facility] [place] [facility] [address] [id number] [place] [address]- 1784 Jun, [facility] [place] [facility] [address] [id number] [place] [address]- 8668 Jun, [facility] [place] [facility] [address] [id number] [place] [address]- 3732 Jun, [facility] [place] [facility] [address] [id number] [place] [address]- 9030 Jun, [facility] [place] [facility] [address] [id number] [place] [address]- 6275 Jun, [facility] [place] [facility] [address] [id number] [place] [address]- 2636 Jun, [facility] [place] [facility] [address] [id number] [place] [address]- 7955 May, [facility] [place] [facility] [address] [id number] [place] [address]- 2547 May, [facility] [place] [facility] [address] [id number] [place] [address]- 1175 May, [facility] [place] [facility] [address] [id number] [place] [address]- 3779 May, [facility] [place] [facility] [address] [id number] [place] [address]- 6446 May, [facility] [place] [facility] [address] [id number] [place] [address]- 0399 May, [facility] [place] [facility] [address] [id number] [place] [address]- 4394 Apr, [facility] [place] [facility] [address] [id number] [place] [address]- 6457 Apr, [facility] [place] [facility] [address] [id number] [place] [address]- 4487 Apr, [facility] [place] [facility] [address] [id number] [place] [address]- 3842 Apr, [facility] [place] [facility] [address] [id number] [place] [address]- 8061 Apr, [facility] [place] [facility] [address] [id number] [place] [address]- 7801 Apr, [facility] [place] [facility] [address] [id number] [place] [address]- 7207 Apr, [facility] [place] [facility] [address] [id number] [place] [address]- 5709 Apr, [facility] [place] [facility] [address] [id number] [place] [address]- 6283 Apr, [facility] [place] [facility] [address] [id number] [place] [address]- 6473 Apr, [facility] [place] [facility] [address] [id number] [place] [address]- 9852 Apr, [facility] [place] [facility] [address] [id number] [place] [address]- 6903 Apr, [facility] [place] [facility] [address] [id number] [place] [address]- 4345 Apr, [facility] [place] [facility] [address] [id number] [place] [address]- 8029 March, [facility] [place] [facility] [address] [id number] [place] [address]- 8748 March, [facility] [place] [facility] [address] [id number] [place] [address]- 3236 March, [facility] [place] [facility] [address] [id number] [place] [address]- 2550 March, [facility] [place] [facility] [address] [id number] [place] [address]- 9834 March, [facility] [place] [facility] [address] [id number] [place] [address]- 2285 March, [facility] [place] [facility] [address] [id number] [place] [address]- 4413 Feb, [facility] [place] [facility] [address] [id number] [place] [address]- 4149 Feb, [facility] [place] [facility] [address] [id number] [place] [address]- 3209 Feb, [facility] [place] [facility] [address] [id number] [place] [address]- 4018 Feb, [facility] [place] [facility] [address] [id number] [place] [address]- 2601 Feb, [facility] [place] [facility] [address] [id number] [place] [address]- 0989 Feb, [facility] [place] [facility] [address] [id number] [place] [address]- 9438 Feb, [facility] [place] [facility] [address] [id number] [place] [address]- 8942 Feb, [facility] [place] [facility] [address] [id number] [place] [address]- 7287 Feb, [facility] [place] [facility] [address] [id number] [place] [address]- 0533 Feb, [facility] [place] [facility] [address] [id number] [place] [address]- 8057 Jan, [facility] [place] [facility] [address] [id number] [place] [address]- 2037 Jan, [facility] [place] [facility] [address] [id number] [place] [address]- 7733 Jan, [facility] [place] [facility] [address] [id number] [place] [address]- 8760 Jan, [facility] [place] [facility] [address] [id number] [place] [address]- 5219 Dec, [facility] [place] [facility] [id number] [address]- 6306 Dec, [facility] [address] [place] [address]- 0391 Sep, [facility] [address], [place] [address]- 7966 Sep, [facility] [address] [address]- 0967 Aug, [facility] [address], [place] [address]- 4351 Aug, [facility] [address] [place] [address]- 5630 Aug, [facility] [address] [place] [address]- 5082 Aug, [facility] [address], [place] [address]- 3451 Aug, [facility] [address] [place] [address]- 6451 May, [facility] [address] [place] [address]- 6171 Jan, [facility] [address] [place] [address]- 9888 Jan, [facility] [id number] [address]- 2076 Dec, IMMUNIZATIONS No Known Immunizations SOCIAL HISTORY Never Assessed REASON FOR VISIT Medication question PLAN OF CARE VITAL SIGNS MEDICATIONS Unknown [...]
--- OUTSIDE RECORDS SUMMARY | 2018-10-18 19:46 | XMS REPORT ---
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 Name Role Phone FLORENCIA HINOJOSA Unavailable PROBLEMS Type Condition ICD9-CM Code [id number] Code Onset Dates Condition Status SNOMED Code Problem Arthritis M19.90 Active 7800784 Problem Chronic fatigue R53.82 Active 40810253 Problem Intractable migraine without aura and without status migrainosus G43.019 Active 597756108 Problem Memory loss R41.3 Active 59322781 Problem Other chronic pain G89.29 Active 95436103 Problem Mental status change resolved Z86.59 Active [id number] ALLERGIES No Information ENCOUNTERS Encounter Location Date Diagnosis [facility] [id number] [place] [address] 90514- 5754 Apr, [facility] [id number] [place] [address] 54881- 5160 Apr, Chronic fatigue R53.82 and Dizziness R42 [facility] [id number] [place] [address] 93711- 8516 March, [facility] [id number] [place] [address] 18133- 7119 March, Intractable migraine without aura and without status migrainosus G43.019 [facility] [id number] [place] [address] 05800- 4286 March, [facility] [address] 60276- 7288 March, [facility] [id number] [place] [address] 01937- 2795 Feb, Intractable migraine without aura and without status migrainosus G43.019 [facility] [address] [place] [address]- 2257 Feb, Memory loss R41.3 and Pineal gland cyst E34.8 [place] [address] 62844- 9581 Feb, Intractable migraine without aura and without status migrainosus G43.019 [place] [address] 59419- 1220 Jan, Intractable migraine without aura and without status migrainosus G43.019 [place] [id number] [place] [address] 90678- 7500 Dec, [place] [address] [address] 4849 Dec, Intractable migraine without aura and without status migrainosus G43.019 [place] [address] 50702- 6530 Nov, [place] [id number] [place] [address] 05078- 1566 Nov, Chronic fatigue R53.82 and Family history of thyroid disease Z83.49 [place] [address] 15431- 0118 Nov, Arthritis M19.90 ; Chronic fatigue R53.82 ; Family history of thyroid disease Z83.49 ; Grade IV hemorrhoids K64.3 and Other chronic pain G89.29 [place] [id number] [place] [address] 74319- 3483 Nov, Intractable migraine without aura and without status migrainosus G43.019 [place] [address] 00813- 1878 Oct, [place] [address] 77330- 4684 Oct, Intractable migraine without aura and without status migrainosus G43.019 [place] [address] [place] [address]- 6276 Oct, [facility] [id number] [place] [address] 77245- 7766 Oct, [facility] [id number] [place] [address] 057759- 6646 Sep, Tremors of nervous system R25.1 [facility] [id number] [place] [address] 63504- 1306 Sep, [facility] [id number] [place] [address] 97627- 5886 Sep, Intractable migraine without aura and without status migrainosus G43.019 [facility] [id number] [place] [address] 49427- 1206 Sep, [facility] [id number] [place] [address] 48287- 4436 Sep, [facility] [id number] [place] [address] 59374- 7253 Sep, Acute medial meniscus tear of right knee, initial encounter S83.241A and Acute lateral meniscus tear of left knee, initial encounter S83.282A [facility] [id number] [place] [address] 57792- 3576 Aug, Intractable migraine without aura and without status migrainosus G43.019 [facility] [address] [address]- 6546 Aug, [facility] [id number] [place] [address] 04059- 2546 Aug, [facility] [id number] [place] [address] 82713- 4306 Jul, [facility] [id number] [place] [address] 45681- 6996 Jul, [facility] [id number] [place] [address] 72249- 1379 Jul, Intractable migraine without aura and without status migrainosus G43.019 ; Memory loss R41.3 ; Mental status change resolved Z86.59 ; Other chronic pain G89.29 and Pain in right knee M25.561 [facility] [id number] [place] [address] 02574- 9205 Jul, [facility] [id number] [place] [address] 21128- 6134 Jun, Tremors of nervous system R25.1 and Pelvic pain R10.2 [facility] [id number] [place] [address] 22178- 5372 Jun, [facility] [id number] [place] [address] 08970- 0992 Jun, [facility] [id number] [place] [address] 18158- 9923 Jun, [facility] [address] 16591- 9942 May, [facility] [id number] [place] [address] 43417- 9683 May, [facility] [id number] [place] [address] 02693- 0754 May, Kidney pain N23 [facility] [id number] [place] [address] 02556- 0645 May, Pelvic pain R10.2 [facility] [id number] [place] [address] 82897 -2357 May, Wasp sting, accidental or unintentional, initial encounter T63.461A and Allergic contact dermatitis due to other agents L23.89 [facility] [id number] [place] [address] 93343- 2027 May, [facility] [id number] [place] [address] 25483- 6878 May, Pelvic pain R10.2 [facility] [address] [address]- 3766 May, [facility] [id number] [place] [address] 78343- 4611 Apr, Tremors of nervous system R25.1 ; Blood in stool, gabby K92.1 ; Pineal gland cyst E34.8 ; Memory loss R41.3 and Intractable migraine without aura and without status migrainosus G43.019 [facility] [id number] [place] [address] 64237- 5805 Apr, Blood in stool, gabby K92.1 [facility] [id number] [place] [address] 64702- 3377 Apr, Tremors of nervous system R25.1 ; Pineal gland cyst E34.8 ; Memory loss R41.3 and Intractable migraine without aura and without status migrainosus G43.019 [facility] [id number] [place] [address] 23170- 9181 Apr, [facility] [id number] [place] [address] 17941- 8586 Apr, Tremor R25.1 [facility] [id number] [place] [address] 35390- 0955 March, [facility] [id number] [place] [address] 93408- 8894 March, Cyst of right ovary N83.201 [facility] [id number] [place] [address] 44298- 9042 March, Blood in stool, gabby K92.1 and Other fatigue R53.83 [facility] [id number] [place] [address] 36718- 3955 March, Cyst of right ovary N83.201 [facility] [id number] [place] [address] 42687- 5995 Feb, [facility] [id number] [place] [address] 31250- 0978 Feb, [facility] [address] [place] [address] 95162- 5604 Feb, Cyst of right ovary N83.201 and Right lower quadrant abdominal pain R10.31 [facility] [id number] [place] [address] 95490- 2816 Jan, Pelvic pain R10.2 [facility] [id number] [place] [address] 65305- 4914 Jan, [facility] [id number] [place] [address] 85305- 9219 Jan, [facility] [id number] [place] [address] 49980- 8825 Jan, Left groin pain R10.30 [facility] [id number] [place] [address] 81719- 2467 Dec, [facility] [id number] [place] [address] 78774- 8456 Dec, Pelvic pain R10.2 and Lumbosacral neuritis M54.17 [facility] [id number] [place] [address] 67925- 2843 Dec, [facility] [id number] [place] [address] 87143- 6914 Dec, Lymph node enlargement R59.9 [facility] [id number] [place] [address] 78804- 9504 Nov, Lymph node enlargement R59.9 [facility] [id number] [place] [address] 49513- 0844 Nov, [facility] [id number] [place] [address] 529727- 3030 Nov, Left groin pain R10.30 [facility] [id number] [place] [address] 99104- 4775 Nov, Varicose vein of leg I83.90 ; Essential hypertension I10 and Short lasting unilateral neuralgiform headache with conjunctival injection and tearing (SUNCT), not intractable G44.059 [facility] [id number] [place] [address] 96896 -4457 Jul, Post concussion syndrome F07.81 [facility] [id number] [place] [address] 50881- 7198 Jul, [facility] [id number] [place] [address] 84408- 7015 Oct, [facility] [address] 97110- 3994 Oct, [facility] [id number] [place] [address] 72405- 0276 Aug, [facility] [address] 69200- 4030 Aug, Obesity 278.00 [facility] [id number] [place] [address] 41295- 1872 Aug, [facility] [id number] [place] [address] 57402- 8690 Jul, Obesity 278.00 and Cervical spondylosis without myelopathy 721.0 [facility] [id number] [place] [address] 85122- 7011 March, [facility] [id number] [place] [address] 06211- 7070 Feb, Cervical spondylosis 721.0 [facility] [id number] [place] [address] 18355- 6996 Feb, [facility] [address] 04434- 9005 Feb, [facility] [id number] [place] [address] 22407- 8434 Jan, [facility] [place] [facility] [address] [id number] [place] [address]- 6035 Jan, [facility] [place] [facility] [address] [id number] [place] [address]- 5211 Jan, [facility] [place] [facility] [address] [id number] [place] [address]- 0546 Jan, [facility] [place] [facility] [address] [id number] [place] [address]- 2062 Jan, [facility] [place] [facility] [address] [id number] [place] [address]- 5400 Jan, [facility] [place] [facility] [address] [id number] [place] [address]- 0422 Dec, [facility] [place] [facility] [address] [id number] [place] [address]- 1964 Dec, 2014 [facility] [place] [facility] [address] [id number] [place] [address]- 2225 Dec, [facility] [place] [facility] [address] [id number] [place] [address]- 0506 Dec, [facility] [place] [facility] [address] [id number] [place] [address]- 0009 Nov, [facility] [place] [facility] [address] [id number] [place] [address]- 5509 Nov, [facility] [place] [facility] [address] [id number] [place] [address]- 5906 Nov, [facility] [place] [facility] [address] [id number] [place] [address]- 2502 Nov, [facility] [place] [facility] [address] [id number] [place] [address]- 7503 Nov, [facility] [place] [facility] [address] [id number] [place] [address]- 7905 Nov, [facility] [place] [facility] [address] [id number] [place] [address]- 7275 Nov, [facility] [place] [facility] [address] [id number] [place] [address]- 6915 Nov, [facility] [place] [facility] [address] [id number] [place] [address]- 4825 Oct, [facility] [place] [facility] [address] [id number] [place] [address]- 5800 Oct, [facility] [place] [facility] [address] [id number] [place] [address]- 5927 Sep, [facility] [place] [facility] [address] [id number] [place] [address]- 7710 Sep, [facility] [place] [facility] [address] [id number] [place] [address]- 6938 Sep, [facility] [place] [facility] [address] [id number] [place] [address]- 2391 Sep, [facility] [place] [facility] [address] [id number] [place] [address]- 8021 29 Jul, 2014 [facility] [place] [facility] [address] [id number] [place] [address]- 2541 29 Jul, 2014 [facility] [place] [facility] [address] [id number] [place] [address]- 2541 26 Jul, 2014 [facility] [place] [facility] [address] [id number] [place] [address]- 6920 26 Jul, 2013 [facility] [place] [facility] [address] [id number] [place] [address]- 2540 19 Jul, 2013 [facility] [place] [facility] [address] [id number] [place] [address] 2544 19 Jul, 2013 [facility] [place] [facility] [address] [id number] [place] [address]- 2543 19 Jul, 2013 [facility] [place] [facility] [address] [id number] [place] [address]- 2549 19 Jul, 2013 [facility] [place] [facility] [address] [id number] [place] [address]- 0057 Jul, [facility] [place] [facility] [address] [id number] [place] [address]- 3924 Jul, [facility] [place] [facility] [address] [id number] [place] [address]- 1830 Jun, [facility] [place] [facility] [address] [id number] [place] [address]- 1917 Jun, [facility] [place] [facility] [address] [id number] [place] [address]- 1521 Jun, [facility] [place] [facility] [address] [id number] [place] [address]- 7872 Jun, [facility] [place] [facility] [address] [id number] [place] [address]- 3318 Jun, [facility] [place] [facility] [address] [id number] [place] [address]- 1695 Jun, [facility] [place] [facility] [address] [id number] [place] [address]- 6357 May, [facility] [place] [facility] [address] [id number] [place] [address]- 2224 May, [facility] [place] [facility] [address] [id number] [place] [address]- 1889 May, [facility] [place] [facility] [address] [id number] [place] [address]- 7518 May, [facility] [place] [facility] [address] [id number] [place] [address]- 3793 May, [facility] [place] [facility] [address] [id number] [place] [address]- 4886 May, [facility] [place] [facility] [address] [id number] [place] [address]- 2648 Apr, [facility] [place] [facility] [address] [id number] [place] 8020 Apr, [facility] [place] [facility] [address] [id number] [place] [address]- 6898 Apr, [facility] [place] [facility] [address] [id number] [place] [address]- 5724 Apr, [facility] [place] [facility] [address] [id number] [place] [address]- 2480 Apr, [facility] [place] [facility] [address] [id number] [place] [address]- 3845 Apr, [facility] [place] [facility] [address] [id number] [place] [address]- 2749 Apr, [facility] [place] [facility] [address] [id number] [place] [address]- 0189 Apr, [facility] [place] [facility] [address] [id number] [place] [address]- 7860 Apr, [facility] [place] [facility] [address] [id number] [place] [address]- 9077 Apr, [facility] [place] [facility] [address] [id number] [place] [address]- 2758 Apr, [facility] [place] [facility] [address] [id number] [place] [address]- 3899 Apr, [facility] [place] [facility] [address] [id number], [place] [address]- 7360 Apr, [facility] [place] [facility] [address] [id number], [place] [address]- 2386 March, [facility] [place] [facility] [address] [id number] [place] [address]- 6282 March, [facility] [place] [facility] [address] [id number] [place] [address]- 9999 March, [facility] [place] [facility] [address] [id number] [place] [address]- 0806 March, [facility] [place] [facility] [address] [id number], [place] [address]- 2105 March, [facility] [place] [facility] [address] [id number] [place] [address]- 2444 March, [facility] [place] [facility] [address] [id number] [place] [address]- 2344 Feb, [facility] [place] [facility] [address] [id number] [place] [address]- 2259 Feb, [facility] [place] [facility] [address] [id number] [place] [address]- 8209 Feb, [facility] [place] [facility] [address] [id number] [place] [address]- 6258 Feb, [facility] [place] [facility] [address] [id number] [place] [address]- 7331 Feb, [facility] [place] [facility] [address] [id number] [place] [address]- 6088 Feb, [facility] [place] [facility] [address] [id number] [place] [address]- 4106 Feb, [facility] [place] [facility] [address] [id number] [place] [address]- 4820 Feb, [facility] [place] [facility] [address] [id number] [place] [address]- 3901 Feb, [facility] [place] [facility] [address] [id number] [place] [address]- 4099 Feb, [facility] [place] [facility] [address] [id number] [place] [address]- 3768 24 Jan, 2014 [facility] [place] [facility] [address] [id number] [place] [address]- 2710 24 Jan, 2014 [facility] [place] [facility] [address] [id number] [place] [address]- 9324 Jan, [facility] [place] [facility] [address] [id number] [place] [address]- 7942 Jan, [facility] [place] [facility] [address] [facility] [id number], [place] [address]- 2188 Dec, [facility] [address] [facility] [id number] 9478 Dec, [facility] [address] [facility] [id number], [place] [address]- 0851 Sep, [facility] [address] [facility] [id number], [place] [address]- 8727 Sep, [facility] [address] [facility] [id number], [place] [address]- 1486 Aug, [facility] [address] [facility] [id number][place] 4872 Aug, [facility] [id number] [address] Aug, [facility] [id number] [address] Aug, [facility] [id number], [place] [address] Aug, [facility] [id number], [place] [address] May, [facility] [id number], [place] [address] Jan, [facility] [id number], [place] [address] Jan, [facility] [address] [facility] [id number], [place] [address] Dec, IMMUNIZATIONS No Known Immunizations SOCIAL HISTORY Never Assessed REASON FOR VISIT Controlled Med Refill 12/04/17 PLAN OF CARE VITAL SIGNS MEDICATIONS Medication Instructions Dosage Frequency Start Date End Date Duration Status Ambien 10 mg Orally Once a day 1 tablet at bedtime as needed 24h Aug, Active Oxycodone HCl 10 mg Orally 4 times a day 1 tablet as needed 6h Nov, 28 days Active RESULTS No Results PROCEDURES No Known procedures INSTRUCTIONS MEDICATIONS ADMINISTERED No Known Medications MEDICAL (GENERAL) HISTORY Type Description Date Medical History Asthma Medical History Hives since 2000 Surgical History spinal fusion 2014 Surgical History Tonsillectomy Surgical History Appendectomy Surgical History section Surgical History epidural anesthesia/injection Surgical History Hemorrhoidecomy with umu Surgical History colonoscopy
--- OUTSIDE RECORDS SUMMARY | 2018-10-18 19:47 | XMS REPORT ---
Author Author FLORENCIA HINOJOSA Organization [facility] Address [address] [place] [address] Care Team Providers Care Salesperson Furniture Name Role Phone FLORENCIA HINOJOSA Unavailable PROBLEMS Type Condition ICD9-CM Code [id number] Code Onset Dates Condition Status SNOMED Code Problem Arthritis M19.90 Active 2975192 Problem Chronic fatigue R53.82 Active 12394682 Problem Intractable migraine without aura and without status migrainosus G43.019 Active 385807589 Problem Memory loss R41.3 Active 02460474 Problem Other chronic pain G89.29 Active 03341191 Problem Mental status change resolved Z86.59 Active [id number] ALLERGIES No Information ENCOUNTERS Encounter Location Date Diagnosis [facility] [id number] [place] [address] 10886- 4565 Apr, Intractable migraine without aura and without status migrainosus G43.019 [facility] [address] 14223- 5481 Apr, Chronic fatigue R53.82 and Dizziness R42 [facility] [id number] [place] [address] 91094- 3481 March, [facility] [address] 55418- 5569 March, Intractable migraine without aura and without status migrainosus G43.019 [facility] [id number] [place] [address] 20929- 8498 March, [facility] [address] 74637- 0313 March, [facility] [address] 93336- 1749 Feb, Intractable migraine without aura and without status migrainosus G43.019 [address] [id number] [place] [address] 54986- 4538 Feb, Memory loss R41.3 and Pineal gland cyst E34.8 [facility] [id number] [place] [address] 45390- 5506 Feb, Intractable migraine without aura and without status migrainosus G43.019 [facility] [id number] [place] [address] 03846- 9121 Jan, Intractable migraine without aura and without status migrainosus G43.019 [facility] [id number] [place] [address] 54291 5996 Dec, [facility] [id number] [place] [address] 72779- 6167 Dec, Intractable migraine without aura and without status migrainosus G43.019 [facility] [id number] [place] [address] 75449- 2614 Nov, [facility] [facility] [id number] [place] [address] 39219- 1782 Nov, Chronic fatigue R53.82 and Family history of thyroid disease Z83.49 [facility] [id number] [place] [address] 42550- 8780 Nov, Arthritis M19.90 ; Chronic fatigue R53.82 ; Family history of thyroid disease Z83.49 ; Grade IV hemorrhoids K64.3 and Other chronic pain G89.29 [place] [id number] [place] [address] 62905- 4078 Nov, Intractable migraine without aura and without status migrainosus G43.019 [facility] [id number] [place] [address] 86975- 4986 Oct, [facility] [id number] [place] [address] 37037- 3104 Oct, Intractable migraine without aura and without status migrainosus G43.019 [facility] [address] [facility] [id number] [address] 2546 Oct, [facility] [id number] [place] [address] 76951 2546 Oct, [facility] [address] [facility] [id number], [place] [address] 2546 Sep, Tremors of nervous system R25.1 [facility] [id number] [place] [address] 41506 2546 Sep, [facility] [id number] [place] [address] 46335 2546 Sep, Intractable migraine without aura and without status migrainosus G43.019 [facility] [address] [address] 2546 Sep, [facility] [id number] [place] [address] 20674 2546 Sep, [facility] [id number] [place] [address] 81059 2546 Sep, Acute medial meniscus tear of right knee, initial encounter S83.241A and Acute lateral meniscus tear of left knee, initial encounter S83.282A [facility] [address] [id number] [address] 2546 Aug, Intractable migraine without aura and without status migrainosus G43.019 [facility] [address] [id number], [place] [address] 2546 Aug, [facility] [address] [id number] [address] 2546 Aug, [facility] [id number] [place] [address] 24658 2546 Jul, [facility] [address] [id number], [place] [address] 2546 Jul, [facility] [id number] [place] [address] 50873- 0826 Jul, Intractable migraine without aura and without status migrainosus G43.019 ; Memory loss R41.3 ; Mental status change resolved Z86.59 ; Other chronic pain G89.29 and Pain in right knee M25.561 [facility] [id number] [place] [address] 90640- 5765 Jul, [facility] [id number] [place] [address] 98933- 1121 Jun, Tremors of nervous system R25.1 and Pelvic pain R10.2 [facility] [id number] [place] [address] 97605- 0091 Jun, [facility] [id number] [place] [address] 21388- 1974 Jun, [facility] [id number] [place] [address] 38994- 5554 Jun, [facility] [id number] [place] [address] 19101- 6601 May, [facility] [id number] [place] [address] 98576- 6393 May, [facility] [id number] [place] [address] 03577- 9127 May, Kidney pain N23 [facility] [id number] [place] [address] 28323- 2327 May, Pelvic pain R10.2 [facility] [id number] [place] [address] 60746 -2281 May, Wasp sting, accidental or unintentional, initial encounter T63.461A and Allergic contact dermatitis due to other agents L23.89 [facility] [id number] [place] [address] 32587- 1160 May, [facility] [id number] [place] [address] 47299- 2680 May, Pelvic pain R10.2 [facility] [id number] [place] [address] 95610- 9929 May, [facility] [id number] [place] [address] 82467- 7006 Apr, Tremors of nervous system R25.1 ; Blood in stool, gabby K92.1 ; Pineal gland cyst E34.8 ; Memory loss R41.3 and Intractable migraine without aura and without status migrainosus G43.019 [facility] [id number] [place] [address] 61056- 5885 Apr, Blood in stool, gabby K92.1 [facility] [id number] [place] [address] 98671- 3186 Apr, Tremors of nervous system R25.1 ; Pineal gland cyst E34.8 ; Memory loss R41.3 and Intractable migraine without aura and without status migrainosus G43.019 [facility] [id number] [place] [address] 82496- 5996 Apr, [facility] [id number] [place] [address] 63784- 8850 Apr, Tremor R25.1 [facility] [id number] [place] [address] 34389- 9876 March, [facility] [id number] [place] [address] 31818- 0915 March, Cyst of right ovary N83.201 [facility] [id number] [place] [address] 77157- 0761 March, Blood in stool, gabby K92.1 and Other fatigue R53.83 [facility] [id number] [place] [address] 17265- 5754 March, Cyst of right ovary N83.201 [facility] [id number] [place] [address] 23307- 0175 Feb, [place] [address] [address]- 2360 Feb, [facility] [id number] [place] [address] 42751- 9272 Feb, Cyst of right ovary N83.201 and Right lower quadrant abdominal pain R10.31 [facility] [id number] [place] [address] 16733- 4060 Jan, Pelvic pain R10.2 [facility] [id number] [place] [address] 97090- 0167 Jan, [facility] [id number] [place] [address] 11842- 2939 Jan, [facility] [id number] [place] [address] 99643- 6218 Jan, Left groin pain R10.30 [facility] [id number] [place] [address] 37213- 3643 Dec, [facility] [id number] [place] [address] 56536- 7674 Dec, Pelvic pain R10.2 and Lumbosacral neuritis M54.17 [facility] [id number] [place] [address] 92300- 5597 Dec, [facility] [id number] [place] [address] 73837- 3353 Dec, Lymph node enlargement R59.9 [facility] [id number] [place] [address] 86935- 7276 Nov, Lymph node enlargement R59.9 [facility] [id number] [place] [address] 08925- 7443 Nov, [facility] [id number] [place] [address] 71398- 0198 Nov, Left groin pain R10.30 [facility] [id number] [place] [address]- 5929 Nov, Varicose vein of leg I83.90 ; Essential hypertension I10 and Short lasting unilateral neuralgiform headache with conjunctival injection and tearing (SUNCT), not intractable G44.059 [facility] [id number] [place] [address] 39377 -3561 07 Jul, 2016 Post concussion syndrome F07.81 [facility] [address] 05449- 2478 Jul, [facility] [id number] [place] [address] 27358- 4787 Oct, [facility] [address] 66862- 9024 Oct, [facility] [address] 83177- 7154 Aug, [facility] [address] 68995- 1526 Aug, Obesity 278.00 [facility] [id number] [place] [address] 49112- 7956 Aug, [facility] [id number] [place] [address] 97843- 0412 Jul, Obesity 278.00 and Cervical spondylosis without myelopathy 721.0 [facility] [id number] [place] [address] 38141- 5747 March, [facility] [id number] [place] [address] 32064- 6139 30 Feb, 2015 Cervical spondylosis 721.0 [facility] [address] 02416- 9139 14 Feb, 2015 [facility] [id number] [place] [address] 20073- 6747 13 Feb, 2015 [facility] [address] 52157- 1706 Jan, [facility] [place] [facility] [address] [id number] [place] [address]- 1249 Jan, [facility] [place] [facility] [address] [id number] [place] [address]- 0232 Jan, [facility] [place] [facility] [address] [id number] [place] [address]- 7585 Jan, [facility] [place] [facility] [address] [id number] [place] [address]- 7009 Jan, [facility] [place] [facility] [address] [id number] [place] [address]- 6278 Jan, [facility] [place] [facility] [address] [id number] [place] [address]- 7264 Dec, [facility] [place] [facility] [address] [id number] [place] [address]- 8222 Dec, [facility] [place] [facility] [address] [id number] [place] [address]- 3799 Dec, [facility] [place] [facility] [address] [id number] [place] [address]- 2281 Dec, [facility] [place] [facility] [address] [facility] [id number] [place] [address]- 9281 Nov, [facility] [place] [facility] [address] [id number], [place] [address]- 0745 Nov, [facility] [place] [facility] [address] [id number], [place] [address]- 2402 16 Nov, 2014 [facility] [place] [facility] [address] [id number] [place] [address]- 4101 15 Nov, 2014 [facility] [place] [facility] [address] [id number] [place] [address]- 3337 Nov, [facility] [place] [facility] [address] [facility] [id number] [place] [address]- 6711 Nov, [facility] [place] [facility] [address] [id number] [place] [address]- 2996 Nov, [facility] [place] [facility] [address] [id number] [place] [address]- 3571 Nov, [facility] [place] [facility] [address] [id number] [place] [address]- 8509 Oct, [facility] [place] [facility] [address] [id number] [place] [address]- 2932 Oct, [facility] [place] [facility] [address] [id number] [place] [address]- 0786 Sep, [facility] [place] [facility] [address] [id number] [place] [address]- 0870 Sep, [facility] [place] [facility] [address] [id number] [place] [address]- 2408 Sep, [facility] [place] [facility] [address] [id number] [place] [address]- 2296 Sep, [facility] [place] [facility] [address] [id number] [place] [address]- 0672 29 Jul, 2014 [facility] [place] [facility] [address] [id number] [place] [address]- 2548 29 Jul, 2014 [facility] [place] [facility] [address] [id number] [place] [address]- 5609 26 Jul, 2013 [facility] [place] [facility] [address] [id number] [place] [address]- 254 26 Jul, 2013 [facility] [place] [facility] [address] [id number] [place] [address]- 2540 19 Jul, 2013 [facility] [place] [facility] [address] [id number] [place] [address]- 2549 19 Jul, 2013 [facility] [place] [facility] [address] [id number] [place] [address]- 2545 19 Jul, 2013 [facility] [place] [facility] [address] [id number] [place] [address]- 8483 Jul, [facility] [place] [facility] [address] [id number] [place] [address]- 0170 Jul, [facility] [place] [facility] [address] [id number] [place] [address]- 9579 Jul, [facility] [place] [facility] [address] [id number] [place] [address]- 7925 Jun, [facility] [place] [facility] [address] [id number] [place] [address]- 1224 Jun, [facility] [place] [facility] [address] [id number] [place] [address]- 1782 Jun, [facility] [place] [facility] [address] [id number] [place] [address]- 6828 Jun, [facility] [place] [facility] [address] [id number] [place] [address]- 1078 Jun, [facility] [place] [facility] [address] [id number] [place] [address]- 7169 Jun, [facility] [place] [facility] [address] [id number] [place] [address]- 1895 May, [facility] [place] [facility] [address] [id number] [place] [address]- 6390 May, [facility] [place] [facility] [address] [id number] [place] [address]- 3731 May, [facility] [place] [facility] [address] [id number] [place] [address]- 7597 May, [facility] [place] [facility] [address] [id number] [place] [address]- 6883 May, [facility] [place] [facility] [address] [id number] [place] [address]- 1173 May, [facility] [place] [facility] [address] [id number] [place] [address]- 3955 Apr, [facility] [place] [facility] [address] [id number] [place] [address]- 5302 Apr, [facility] [place] [facility] [address] [id number] [place] [address]- 9395 Apr, [facility] [place] [facility] [address] [id number] [place] [address]- 0946 Apr, [facility] [place] [facility] [address] [id number] [place] [address]- 4035 Apr, [facility] [place] [facility] [address] [id number] [place] [address]- 9509 Apr, [facility] [place] [facility] [address] [id number] [place] [address]- 9687 Apr, [facility] [place] [facility] [address] [id number] [place] [address]- 0177 Apr, [facility] [place] [facility] [address] [id number] [place] [address]- 0085 Apr, [facility] [place] [facility] [address] [id number] [place] [address]- 2013 Apr, [facility] [place] [facility] [address] [id number] [place] [address]- 2916 Apr, [facility] [place] [facility] [address] [id number] [place] [address]- 0853 Apr, [facility] [place] [facility] [address] [id number] [place] [address]- 7472 Apr, [facility] [place] [facility] [address] [id number] [place] [address]- 8735 March, [facility] [place] [facility] [address] [id number] [place] [address]- 3356 March, [facility] [place] [facility] [address] [id number] [place] [address]- 1165 March, [facility] [place] [facility] [address] [id number] [place] [address]- 8612 March, [facility] [place] [facility] [address] [id number] [place] [address]- 9523 March, [facility] [place] [facility] [address] [id number] [place] [address]- 1094 March, [facility] [place] [facility] [address] [id number] [place] [address]- 7099 Feb, [facility] [place] [facility] [address] [id number] [place] [address]- 7474 Feb, [facility] [place] [facility] [address] [id number] [place] [address]- 0171 Feb, [facility] [place] [facility] [address] [id number] [place] [address]- 1303 Feb, [facility] [place] [facility] [address] [id number] [place] [address]- 7788 Feb, [facility] [place] [facility] [address] [id number] [place] [address]- 9183 Feb, [facility] [place] [facility] [address] [id number] [place] [address]- 4790 Feb, [facility] [place] [facility] [address] [id number] [place] [address]- 3180 Feb, [facility] [place] [facility] [address] [id number] [place] [address]- 4223 Feb, [facility] [place] [facility] [address] [id number] [place] [address]- 9342 Feb, [facility] [place] [facility] [address] [id number] [place] [address]- 4285 Jan, [facility] [place] [facility] [address] [id number] [place] [address]- 4453 24 Jan, 2014 [facility] [place] [facility] [address] [id number] [place] [address]- 5859 Jan, [facility] [place] [facility] [address] [id number], [place] [address]- 0714 Jan, [facility] [id number] [address]- 9402 Dec, [facility] [address] [facility] [id number] 1197 Dec, [facility] [address], [place] [address]- 0294 Sep, [facility] [address] [facility] [id number], [place] [address]- 0186 Sep, [facility] [address] [facility] [id number], [place] [address]- 2306 Aug, [facility] [address] [facility] [id number], [place] [address]- 6525 Aug, [facility] [address], [place] [address]- 1236 Aug, [facility] [address], [place] [address]- 8270 Aug, [facility] [address], [place] [address]- 6367 Aug, [facility] [address], [place] [address]- 2049 May, [facility] [id number] [address]- 2769 Jan, [facility] [address], [place] [address]- 6280 Jan, [facility] [address] [place] [address]- 7592 Dec, IMMUNIZATIONS No Known Immunizations SOCIAL HISTORY [...]
--- OUTSIDE RECORDS SUMMARY | 2018-10-18 19:48 | XMS REPORT ---
Author Author FLORENCIA HINOJOSA Organization [facility] Address [address] [place] [address] Care Team Providers Care Promotions Assistant Name Role Phone FLORENCIA HINOJOSA Unavailable PROBLEMS Type Condition ICD9-CM Code MRE43-SF Code Onset Dates Condition Status SNOMED Code Problem Arthritis M19.90 Active 8156526 Problem Chronic fatigue R53.82 Active 97010245 Problem Intractable migraine without aura and without status migrainosus G43.019 Active 329288693 Problem Memory loss R41.3 Active 54245806 Problem Other chronic pain G89.29 Active 89482795 Problem Mental status change resolved Z86.59 Active 436592485 ALLERGIES Substance Reaction Event Type Date Status SulfADIAZINE Unknown Drug Allergy Nov, Active Prednisone nausea and vomiting Drug Allergy Nov, Active Morphine Sulfate nausea and vomiting Drug Allergy Nov, Active ENCOUNTERS Encounter Location Date Diagnosis [facility] [id number] [place] [address] 18647- 0412 Apr, Intractable migraine without aura and without status migrainosus G43.019 [facility] [id number] [place] [address] 56431- 2677 Apr, Chronic fatigue R53.82 and Dizziness R42 [facility] [id number] [place] [address] 03043- 5939 March, [facility] [id number] [place] [address] 44557- 6237 March, Intractable migraine without aura and without status migrainosus G43.019 [facility] [id number] [place] [address] 25002- 4075 March, [facility] [id number] [place] [address] 47140- 8757 March, [facility] [id number] [place] [address] 40453- 6501 Feb, Intractable migraine without aura and without status migrainosus G43.019 [facility] [facility] [id number] [place] [address] 41865- 2186 Feb, Memory loss R41.3 and Pineal gland cyst E34.8 [place] [id number] [place] [address] 18563- 1328 Feb, Intractable migraine without aura and without status migrainosus G43.019 [place] [id number] [place] [address] 95550- 9450 Jan, Intractable migraine without aura and without status migrainosus G43.019 [place] [id number] [place] [address] 33689- 1481 Dec, [place] [id number] [place] [address] 31510- 8675 Dec, Intractable migraine without aura and without status migrainosus G43.019 [place] [id number] [place] [address] 51814- 7315 Nov, [place] [id number] [place] [address] 62155- 3490 Nov, Chronic fatigue R53.82 and Family history of thyroid disease Z83.49 [place] [id number] [address] 45878- 3331 Nov, Arthritis M19.90 ; Chronic fatigue R53.82 ; Family history of thyroid disease Z83.49 ; Grade IV hemorrhoids K64.3 and Other chronic pain G89.29 [place] [id number] [place] [address] 82831- 1249 Nov, Intractable migraine without aura and without status migrainosus G43.019 [place] [id number] [place] [address] 51687- 6648 Oct, [place] [id number] [address] 8806 Oct, Intractable migraine without aura and without status migrainosus G43.019 [facility] [address], [place] [address]- 4266 Oct, [facility] [address], [place] [address]- 2606 Oct, [facility] [id number] [place] [address] 80754- 8440 Sep, Tremors of nervous system R25.1 [facility] [id number] [place] [address] 55023- 2766 Sep, [facility] [id number] [place] [address] 75710- 1186 Sep, Intractable migraine without aura and without status migrainosus G43.019 [facility] [id number] [address] 2186 Sep, [facility] [address], [place] [address]- 3565 Sep, [facility] [id number] [place] [address] 24848- 4522 Sep, Acute medial meniscus tear of right knee, initial encounter S83.241A and Acute lateral meniscus tear of left knee, initial encounter S83.282A [facility] [address], [place] [address]- 9296 Aug, Intractable migraine without aura and without status migrainosus G43.019 [facility] [address], [place] [address]- 7116 Aug, [facility] [address], [place] [address]- 8746 Aug, [facility] [address], [place] [address]- 7846 Jul, [facility] [id number] [place] [address] 52319- 8380 Jul, [facility] [id number] [place] [address] 40506- 0945 Jul, Intractable migraine without aura and without status migrainosus G43.019 ; Memory loss R41.3 ; Mental status change resolved Z86.59 ; Other chronic pain G89.29 and Pain in right knee M25.561 [facility] [id number] [place] [address] 69584- 7764 Jul, [facility] [id number] [place] [address] 66281- 4676 Jun, Tremors of nervous system R25.1 and Pelvic pain R10.2 [facility] [id number] [place] [address] 68301- 9860 Jun, [facility] [id number] [place] [address] 44001- 5535 Jun, [facility] [id number] [place] [address] 71257- 6853 Jun, [facility] [id number] [place] [address] 18582- 1370 May, [facility] [id number] [place] [address] 36873- 0470 May, [facility] [id number] [place] [address] 52917- 2039 May, Kidney pain N23 [facility] [id number] [place] [address] 22228- 4654 May, Pelvic pain R10.2 [facility] [id number] [place] [address] 81221 -2993 May, Wasp sting, accidental or unintentional, initial encounter T63.461A and Allergic contact dermatitis due to other agents L23.89 [facility] [id number] [place] [address] 67608- 6930 May, [facility] [id number] [place] [address] 12661- 3264 May, Pelvic pain R10.2 [facility] [id number] [place] [address] 22559- 0916 May, [facility] [id number] [place] [address] 06876- 9945 Apr, Tremors of nervous system R25.1 ; Blood in stool, gabby K92.1 ; Pineal gland cyst E34.8 ; Memory loss R41.3 and Intractable migraine without aura and without status migrainosus G43.019 [facility] [id number] [place] [address] 73726- 4205 Apr, Blood in stool, gabby K92.1 [facility] [id number] [place] [address] 59933- 7681 Apr, Tremors of nervous system R25.1 ; Pineal gland cyst E34.8 ; Memory loss R41.3 and Intractable migraine without aura and without status migrainosus G43.019 [facility] [id number] [place] [address] 42991- 9524 Apr, [facility] [id number] [place] [address] 39681- 1358 Apr, Tremor R25.1 [facility] [id number] [place] [address] 64074- 6460 March, [facility] [id number] [place] [address] 92960- 9052 March, Cyst of right ovary N83.201 [facility] [id number] [place] [address] 97163- 8851 March, Blood in stool, gabby K92.1 and Other fatigue R53.83 [facility] [id number] [place] [address] 65364- 4013 March, Cyst of right ovary N83.201 [facility] [address], [place] [address]- 9380 Feb, [facility] [id number] [place] [address] 59803- 7866 Feb, [facility] [id number] [place] [address] 56615 2546 Feb, Cyst of right ovary N83.201 and Right lower quadrant abdominal pain R10.31 [facility] [id number] [place] [address] 40165 2546 Jan, Pelvic pain R10.2 [facility] [id number] [place] [address] 15872- 4586 Jan, [facility] [id number] [place] [address] 28275- 4536 Jan, [facility] [id number] [place] [address] 10268- 7112 Jan, Left groin pain R10.30 [facility] [id number] [place] [address] 81819- 6861 Dec, [facility] [id number] [place] [address] 73686- 6786 Dec, Pelvic pain R10.2 and Lumbosacral neuritis M54.17 [facility] [id number] [place] [address] 06011 2546 Dec, [facility] [id number] [place] [address] 54660- 2546 Dec, Lymph node enlargement R59.9 [facility] [id number] [place] [address] 59055- 8106 Nov, Lymph node enlargement R59.9 [facility] [id number] [place] [address] 58992- 4026 Nov, [facility] [id number] [place] [address] 46544- 2593 Nov, Left groin pain R10.30 [facility] [address] 11786- 5016 Nov, Varicose vein of leg I83.90 ; Essential hypertension I10 and Short lasting unilateral neuralgiform headache with conjunctival injection and tearing (SUNCT), not intractable G44.059 [facility] [id number] [place] [address] 36810 -1345 07 Jul, 2016 Post concussion syndrome F07.81 [facility] [address] 31120- 3650 Jul, [facility] [address] 17379- 4749 Oct, [facility] [address] 41820- 4892 Oct, [facility] [address] 08816- 7786 Aug, [facility] [id number] [place] [address] 25714- 9403 Aug, Obesity 278.00 [facility] [id number] [place] [address] 82813- 1893 Aug, [facility] [id number] [place] [address] 94268- 2111 Jul, Obesity 278.00 and Cervical spondylosis without myelopathy 721.0 [facility] [id number] [place] [address] 24793- 0681 March, [facility] [address] 94492- 3365 Feb, Cervical spondylosis 721.0 [facility] [id number] [place] [address] 08761- 5627 Feb, [facility] [address] [place] [address]- 8454 13 Feb, 2015 [facility] [place] [facility] [address] [id number] [place] [address]- 4143 Jan, [facility] [place] [facility] [address] [id number] [place] [address]- 2606 Jan, [facility] [place] [facility] [address] [id number] [place] [address]- 9495 Jan, [facility] [place] [facility] [address] [id number] [place] [address]- 8170 Jan, [facility] [place] [facility] [address] [id number] [place] [address]- 1080 Jan, [facility] [place] [facility] [address] [id number] [place] [address]- 9369 Jan, [facility] [place] [facility] [address] [id number] [place] [address]- 4990 Dec, [facility] [place] [facility] [address] [id number] [place] [address]- 0936 Dec, [facility] [place] [facility] [address] [id number] [place] [address]- 4107 Dec, [facility] [place] [facility] [address] [id number] [place] [address]- 3993 06 Dec, 2014 [facility] [place] [facility] [address] [id number] [place] [address]- 1322 Nov, [facility] [place] [facility] [address] [id number] [address]- 6533 16 Nov, 2014 [facility] [place] [facility] [address] [id number] [place] [address]- 4919 16 Nov, 2014 [facility] [place] [facility] [address] [id number] [place] [address]- 1639 15 Nov, 2014 [facility] [place] [facility] [address] [id number], [place] [address]- 8220 14 Nov, 2014 [facility] [place] [facility] [address] [id number] [place] [address]- 9604 14 Nov, 2014 [facility] [place] [facility] [address] [id number] [place] [address]- 3546 Nov, [facility] [place] [facility] [address] [id number] [place] [address]- 2352 Nov, [facility] [place] [facility] [address] [id number] [place] [address]- 7454 Oct, [facility] [place] [facility] [address] [id number] [place] [address]- 5422 Oct, [facility] [place] [facility] [address] [id number] [place] [address]- 3711 Sep, [facility] [place] [facility] [address] [id number] [place] [address]- 1988 Sep, [facility] [place] [facility] [address] [id number] [place] [address]- 1509 Sep, [facility] [place] [facility] [address] [id number] [place] [address]- 0050 Sep, [facility] [place] [facility] [address] [id number] [place] [address]- 9128 29 Jul, 2014 [facility] [place] [facility] [address] [id number] [place] [address]- 8200 29 Jul, 2014 [facility] [place] [facility] [address] [id number] [place] [address]- 5174 26 Jul, 2013 [facility] [place] [facility] [address] [id number] [place] [address]- 4035 26 Jul, 2014 [facility] [place] [facility] [address] [id number] [place] [address]- 5796 19 Jul, 2014 [facility] [place] [facility] [address] [id number] [place] [address]- 5740 19 Jul, 2014 [facility] [place] [facility] [address] [id number] [place] [address]- 1654 Jul, [facility] [place] [facility] [address] [id number] [place] [address]- 3174 Jul, [facility] [place] [facility] [address] [id number] [place] [address]- 3814 Jul, [facility] [place] [facility] [address] [id number] [place] [address]- 1775 Jul, [facility] [place] [facility] [address] [id number] [place] [address]- 1194 Jun, [facility] [place] [facility] [address] [id number] [place] [address]- 4138 Jun, [facility] [place] [facility] [address] [id number] [place] [address]- 7813 Jun, [facility] [place] [facility] [address] [id number] [place] [address]- 6604 Jun, [facility] [place] [facility] [address] [id number] [place] [address]- 4160 Jun, [facility] [place] [facility] [address] [id number] [place] [address]- 4252 Jun, [facility] [place] [facility] [address] [id number] [place] [address]- 8262 May, [facility] [place] [facility] [address] [id number] [place] [address]- 2360 May, [facility] [place] [facility] [address] [id number] [place] [address]- 9576 May, [facility] [place] [facility] [address] [id number] [place] [address]- 7060 May, [facility] [place] [facility] [address] [id number] [place] [address]- 5447 May, [facility] [place] [facility] [address] [id number] [place] [address]- 9232 May, [facility] [place] [facility] [address] [id number] [place] [address]- 0659 Apr, [facility] [place] [facility] [address] [id number] [place] [address]- 7820 Apr, [facility] [place] [facility] [address] [id number] [place] [address]- 0068 Apr, [facility] [place] [facility] [address] [id number] [place] [address]- 9601 Apr, [facility] [place] [facility] [address] [id number] [place] [address]- 9163 Apr, [facility] [place] [facility] [address] [id number] [place] [address]- 3754 Apr, [facility] [place] [facility] [address] [id number] [place] [address]- 5304 Apr, [facility] [place] [facility] [address] [id number] [place] [address]- 7216 Apr, [facility] [place] [facility] [address] [id number] [place] [address]- 0599 Apr, [facility] [place] [facility] [address] [id number] [place] [address]- 7437 Apr, [facility] [place] [facility] [address] [id number] [place] [address]- 0780 Apr, [facility] [place] [facility] [address] [id number] [place] [address]- 8820 Apr, [facility] [place] [facility] [address] [id number] [place] [address]- 1860 Apr, [facility] [place] [facility] [address] [id number] [place] [address]- 1523 March, [facility] [place] [facility] [address] [id number] [place] [address]- 5896 March, [facility] [place] [facility] [address] [id number] [place] [address]- 2490 March, [facility] [place] [facility] [address] [id number] [place] [address]- 5340 March, [facility] [place] [facility] [address] [id number] [place] [address]- 8475 March, [facility] [place] [facility] [address] [id number] [place] [address]- 7655 March, [facility] [place] [facility] [address] [id number] [place] [address]- 7780 Feb, [facility] [place] [facility] [address] [id number] [place] [address]- 6113 Feb, [facility] [place] [facility] [address] [id number] [place] [address]- 9116 Feb, [facility] [place] [facility] [address] [id number] [place] [address]- 2583 Feb, [facility] [place] [facility] [address] [id number] [place] [address]- 5669 Feb, [facility] [place] [facility] [address] [id number] [place] [address]- 2222 Feb, [facility] [place] [facility] [address] [id number] [place] [address]- 2094 Feb, [facility] [place] [facility] [address] [id number] [place] [address]- 5463 Feb, [facility] [place] [facility] [address] [id number] [place] [address]- 7636 Feb, [facility] [place] [facility] [address] [id number] [place] [address]- 5713 Feb, [facility] [place] [facility] [address] [id number] [place] [address]- 8530 Jan, [facility] [place] [facility] [address] [id number] [place] [address]- 2274 Jan, [facility] [place] [facility] [address] [id number], [place] [address]- 3252 Jan, [facility] [address] [facility] [id number] [address] Jan, [facility] [address] [facility] [id number] [address] Dec, [facility] [address] [facility] [id number], [place] [address] Dec, [facility] [address] [facility] [id number][place] [address] Sep, [facility] [address] [facility] [id number], [place] [address] Sep, [facility] [address] [id number], [place] [address] Aug, [facility] [id number] [address] Aug, [facility] [id number], [place] [address] Aug, [facility] [id number] [address] Aug, [facility] [id number], [place] [address] Aug, [facility] [id number] [address] May, [facility] [address] [id number], [place] [address] Jan, [facility] [address] [facility] [id number] [address] [address] Jan, [facility] [address] [id number] [address] Dec, IMMUNIZATIONS No Known Immunizations SOCIAL HISTORY Never Assessed REASON FOR VISIT Pain Mgmt, pain about 4 on some days and 10 on other days. Pain is spreading to the hips, seems to be all over. Reports pain wakes her or she can't sleep. , Ameritox, PHQ2, Dast, contract, Last year had hemorrhoidectomy by Dr. Calixto, but now has bleeding hemorrhoids rates as excessive and passing clots from rectum. CbrumbackRN, Asking about having camera to check stomach, and intestines , needs thyroid test wtih the 3 parts to compare with tests from neurologist. Checking for Graves disease. CBrumbackRn PLAN OF CARE VITAL SIGNS Height 66 in 2017-12-09 Weight 160.6 lbs 2017-12-09 Temperature 98.3 degrees Fahrenheit 2017-12-09 Heart Rate 88 bpm 2017-12-09 Respiratory Rate 18 2017-12-09 BMI 25.92 kg/m2 2017-12-09 Blood pressure systolic 106 mmHg 2017-12-09 Blood pressure diastolic 74 mmHg 2017-12-09 MEDICATIONS Medication Instructions Dosage Frequency Start Date End Date Duration Status Lasix 20 mg Orally Once a day 1/2 tablet 24h Active Oxycodone HCl 10 mg Orally 4 times a day 1 tablet as needed 6h Nov, 28 days Active Ambien 10 mg Orally Once a day 1 tablet at bedtime as needed 24h Aug, Active Depakote 500 MG Orally 2 times a day 1 tablet 12h Apr, 30 days Active Potassium Chloride ER 10 MEQ Orally Once a day 2 capsules with food 24h Active RESULTS Name Result Date Reference Range AMERITOX 2017-12-09 PROCEDURES Procedure Date Ordered Result Body Site No Charge Dec 09, 2017 INSTRUCTIONS MEDICATIONS ADMINISTERED No Known Medications MEDICAL (GENERAL) HISTORY Type Description Date Medical History Asthma Medical History Hives since 2000 Surgical History spinal fusion 2014 Surgical History Tonsillectomy Surgical History Appendectomy Surgical History section Surgical History epidural anesthesia/injection Surgical History Hemorrhoidecomy with umu Surgical History colonoscopy
--- OUTSIDE RECORDS SUMMARY | 2018-10-18 19:48 | XMS REPORT ---
Author Author FLORENCIA HINOJOSA Organization [facility] Address [address] [place] [address] Care Team Providers Care Marketing Instructor Name Role Phone FLORENCIA HINOJOSA Unavailable PROBLEMS Type Condition ICD9-CM Code [id number] Code Onset Dates Condition Status SNOMED Code Problem Arthritis M19.90 Active 4916490 Problem Chronic fatigue R53.82 Active 30206748 Problem Intractable migraine without aura and without status migrainosus G43.019 Active 824936813 Problem Memory loss R41.3 Active 08655654 Problem Other chronic pain G89.29 Active 20211530 Problem Mental status change resolved Z86.59 Active [id number] ALLERGIES No Information ENCOUNTERS Encounter Location Date Diagnosis [facility] [id number] [place] [address] 06802- 5921 Apr, Intractable migraine without aura and without status migrainosus G43.019 [facility] [address] 64312- 2552 Apr, Chronic fatigue R53.82 and Dizziness R42 [facility] [id number] [place] [address] 18358- 8729 March, [facility] [address] 76590- 8367 March, Intractable migraine without aura and without status migrainosus G43.019 [facility] [id number] [place] [address] 22220- 1670 March, [facility] [address] 91429- 7127 March, [facility] [address] 45823- 3149 Feb, Intractable migraine without aura and without status migrainosus G43.019 [place] [id number] [place] [address] 35857- 8215 Feb, Memory loss R41.3 and Pineal gland cyst E34.8 [place] [id number] [place] [address] 14981- 4926 Feb, Intractable migraine without aura and without status migrainosus G43.019 [place] [id number] [place] [address] 69516- 5577 Jan, Intractable migraine without aura and without status migrainosus G43.019 [place] [id number] [place] [address] 04057 1676 Dec, [place] [id number] [place] [address] 08045- 5296 Dec, Intractable migraine without aura and without status migrainosus G43.019 [place] [id number] [place] [address] 54324- 4858 Nov, [place] [id number] [place] [address] 21209- 6660 Nov, Chronic fatigue R53.82 and Family history of thyroid disease Z83.49 [place] [id number] [place] [address] 71311- 1425 Nov, Arthritis M19.90 ; Chronic fatigue R53.82 ; Family history of thyroid disease Z83.49 ; Grade IV hemorrhoids K64.3 and Other chronic pain G89.29 [place] [id number] [place] [address] 81072- 5756 Nov, Intractable migraine without aura and without status migrainosus G43.019 [place] [id number] [place] [address] 55758- 2456 Oct, [place] [id number] [place] [address] 20562- 3248 Oct, Intractable migraine without aura and without status migrainosus G43.019 [facility] [address] [facility] [id number] [address] 2546 Oct, [facility] [id number] [place] [address] 53661 2546 Oct, [facility] [address] [facility] [id number], [place] [address] 2546 Sep, Tremors of nervous system R25.1 [facility] [id number] [place] [address] 59355 2546 Sep, [facility] [id number] [place] [address] 91011 2546 Sep, Intractable migraine without aura and without status migrainosus G43.019 [facility] [address] [address] 2546 Sep, [facility] [id number] [place] [address] 81749 2546 Sep, [facility] [id number] [place] [address] 63880 2546 Sep, Acute medial meniscus tear of right knee, initial encounter S83.241A and Acute lateral meniscus tear of left knee, initial encounter S83.282A [facility] [id number], [place] [address] 2546 Aug, Intractable migraine without aura and without status migrainosus G43.019 [facility] [id number] [address] 2546 Aug, [facility] [id number] [address] 2546 Aug, [facility] [id number] [place] [address] 50363 2546 Jul, [facility] [id number], [place] [address] 2546 Jul, [facility] [id number] [place] [address] 45052- 1741 Jul, Intractable migraine without aura and without status migrainosus G43.019 ; Memory loss R41.3 ; Mental status change resolved Z86.59 ; Other chronic pain G89.29 and Pain in right knee M25.561 [facility] [id number] [place] [address] 65302- 2930 Jul, [facility] [id number] [place] [address] 57573- 5287 Jun, Tremors of nervous system R25.1 and Pelvic pain R10.2 [facility] [id number] [place] [address] 01338- 7522 Jun, [facility] [id number] [place] [address] 79104- 1048 Jun, [facility] [id number] [place] [address] 21774- 7253 Jun, [facility] [id number] [place] [address] 83589- 7996 May, [facility] [id number] [place] [address] 26275- 2759 May, [facility] [id number] [place] [address] 59971- 3529 May, Kidney pain N23 [facility] [id number] [place] [address] 30060- 7160 May, Pelvic pain R10.2 [facility] [id number] [place] [address] 13296 -2072 May, Wasp sting, accidental or unintentional, initial encounter T63.461A and Allergic contact dermatitis due to other agents L23.89 [facility] [id number] [place] [address] 31572- 7006 May, [facility] [id number] [place] [address] 14844- 5217 May, Pelvic pain R10.2 [facility] [id number] [place] [address] 58447- 8287 May, [facility] [id number] [place] [address] 17133- 8866 Apr, Tremors of nervous system R25.1 ; Blood in stool, gabby K92.1 ; Pineal gland cyst E34.8 ; Memory loss R41.3 and Intractable migraine without aura and without status migrainosus G43.019 [facility] [id number] [place] [address] 81257- 3098 Apr, Blood in stool, gabby K92.1 [facility] [id number] [place] [address] 23043- 8806 Apr, Tremors of nervous system R25.1 ; Pineal gland cyst E34.8 ; Memory loss R41.3 and Intractable migraine without aura and without status migrainosus G43.019 [facility] [id number] [place] [address] 61831- 2235 Apr, [facility] [id number] [place] [address] 23130- 9519 Apr, Tremor R25.1 [facility] [id number] [place] [address] 47202- 0436 March, [facility] [id number] [place] [address] 63768- 0340 March, Cyst of right ovary N83.201 [facility] [id number] [place] [address] 63527- 0031 March, Blood in stool, gabby K92.1 and Other fatigue R53.83 [facility] [id number] [place] [address] 65344- 1975 March, Cyst of right ovary N83.201 [facility] [id number] [place] [address] 54308- 5614 Feb, [place] [address], [place] [address]- 2027 Feb, [facility] [id number] [place] [address] 41906- 6420 Feb, Cyst of right ovary N83.201 and Right lower quadrant abdominal pain R10.31 [facility] [id number] [place] [address] 36080- 0546 Jan, Pelvic pain R10.2 [facility] [id number] [place] [address] 74993- 9803 Jan, [facility] [id number] [place] [address] 54559- 7063 Jan, [facility] [id number] [place] [address] 44825- 5276 Jan, Left groin pain R10.30 [facility] [id number] [place] [address] 40879- 7590 Dec, [facility] [id number] [place] [address] 14326- 7633 Dec, Pelvic pain R10.2 and Lumbosacral neuritis M54.17 [facility] [id number] [place] [address] 15211- 5738 Dec, [facility] [id number] [place] [address] 16831- 6665 Dec, Lymph node enlargement R59.9 [facility] [id number] [place] [address] 32045- 3124 Nov, Lymph node enlargement R59.9 [facility] [id number] [place] [address] 34413- 5426 Nov, [facility] [id number] [place] [address] 31091- 3221 Nov, Left groin pain R10.30 [facility] [id number] [place] [address]- 9707 Nov, Varicose vein of leg I83.90 ; Essential hypertension I10 and Short lasting unilateral neuralgiform headache with conjunctival injection and tearing (SUNCT), not intractable G44.059 [facility] [id number] [place] [address] 80697 -4319 07 Jul, 2016 Post concussion syndrome F07.81 [facility] [address] 83685- 4778 Jul, [facility] [id number] [place] [address] 91445- 9709 Oct, [facility] [address] 00841- 8888 Oct, [facility] [address] 17607- 5489 Aug, [facility] [address] 97444- 2628 Aug, Obesity 278.00 [facility] [id number] [place] [address] 74034- 7179 Aug, [facility] [id number] [place] [address] 03496- 9096 Jul, Obesity 278.00 and Cervical spondylosis without myelopathy 721.0 [facility] [id number] [place] [address] 32807- 6931 March, [facility] [id number] [place] [address] 77533- 2915 30 Feb, 2015 Cervical spondylosis 721.0 [facility] [address] 71405- 0339 14 Feb, 2015 [facility] [id number] [place] [address] 63201- 2762 13 Feb, 2015 [facility] [address] 23734- 2726 Jan, [facility] [place] [facility] [address] [id number] [place] [address]- 0538 Jan, [facility] [place] [facility] [address] [id number] [place] [address]- 3902 Jan, [facility] [place] [facility] [address] [id number] [place] [address]- 0598 Jan, [facility] [place] [facility] [address] [id number] [place] [address]- 0141 Jan, [facility] [place] [facility] [address] [id number] [place] [address]- 7103 Jan, [facility] [place] [facility] [address] [id number] [place] [address]- 5055 Dec, [facility] [place] [facility] [address] [id number] [place] [address]- 9123 Dec, [facility] [place] [facility] [address] [id number] [place] [address]- 4688 Dec, [facility] [place] [facility] [address] [id number] [place] [address]- 0181 Dec, [facility] [place] [facility] [address] [facility] [id number] [place] [address]- 1585 Nov, [facility] [place] [facility] [address] [id number], [place] [address]- 7577 Nov, [facility] [place] [facility] [address] [id number], [place] [address]- 0511 16 Nov, 2014 [facility] [place] [facility] [address] [id number] [place] [address]- 0981 15 Nov, 2014 [facility] [place] [facility] [address] [id number] [place] [address]- 8948 Nov, [facility] [place] [facility] [address] [facility] [id number] [place] [address]- 6304 Nov, [facility] [place] [facility] [address] [id number] [place] [address]- 7349 Nov, [facility] [place] [facility] [address] [id number] [place] [address]- 4646 Nov, [facility] [place] [facility] [address] [id number] [place] [address]- 1035 Oct, [facility] [place] [facility] [address] [id number] [place] [address]- 2357 Oct, [facility] [place] [facility] [address] [id number] [place] [address]- 9773 Sep, [facility] [place] [facility] [address] [id number] [place] [address]- 0654 Sep, [facility] [place] [facility] [address] [id number] [place] [address]- 9833 Sep, [facility] [place] [facility] [address] [id number] [place] [address]- 4278 Sep, [facility] [place] [facility] [address] [id number] [place] [address]- 5158 29 Jul, 2014 [facility] [place] [facility] [address] [id number] [place] [address]- 2540 29 Jul, 2014 [facility] [place] [facility] [address] [id number] [place] [address]- 3376 26 Jul, 2013 [facility] [place] [facility] [address] [id number] [place] [address]- 2540 26 Jul, 2013 [facility] [place] [facility] [address] [id number] [place] [address]- 2548 19 Jul, 2013 [facility] [place] [facility] [address] [id number] [place] [address]- 2549 19 Jul, 2013 [facility] [place] [facility] [address] [id number] [place] [address]- 2549 19 Jul, 2013 [facility] [place] [facility] [address] [id number] [place] [address]- 3832 Jul, [facility] [place] [facility] [address] [id number] [place] [address]- 4880 Jul, [facility] [place] [facility] [address] [id number] [place] [address]- 1757 Jul, [facility] [place] [facility] [address] [id number] [place] [address]- 7802 Jun, [facility] [place] [facility] [address] [id number] [place] [address]- 1845 Jun, [facility] [place] [facility] [address] [id number] [place] [address]- 4559 Jun, [facility] [place] [facility] [address] [id number] [place] [address]- 3204 Jun, [facility] [place] [facility] [address] [id number] [place] [address]- 9152 Jun, [facility] [place] [facility] [address] [id number] [place] [address]- 2421 Jun, [facility] [place] [facility] [address] [id number] [place] [address]- 6705 May, [facility] [place] [facility] [address] [id number] [place] [address]- 8858 May, [facility] [place] [facility] [address] [id number] [place] [address]- 0711 May, [facility] [place] [facility] [address] [id number] [place] [address]- 1871 May, [facility] [place] [facility] [address] [id number] [place] [address]- 3320 May, [facility] [place] [facility] [address] [id number] [place] [address]- 9751 May, [facility] [place] [facility] [address] [id number] [place] [address]- 5076 Apr, [facility] [place] [facility] [address] [id number] [place] [address]- 3936 Apr, [facility] [place] [facility] [address] [id number] [place] [address]- 9678 Apr, [facility] [place] [facility] [address] [id number] [place] [address]- 2989 Apr, [facility] [place] [facility] [address] [id number] [place] [address]- 0076 Apr, [facility] [place] [facility] [address] [id number] [place] [address]- 6120 Apr, [facility] [place] [facility] [address] [id number] [place] [address]- 5293 Apr, [facility] [place] [facility] [address] [id number] [place] [address]- 3740 Apr, [facility] [place] [facility] [address] [id number] [place] [address]- 4759 Apr, [facility] [place] [facility] [address] [id number] [place] [address]- 1654 Apr, [facility] [place] [facility] [address] [id number] [place] [address]- 6069 Apr, [facility] [place] [facility] [address] [id number] [place] [address]- 6187 Apr, [facility] [place] [facility] [address] [id number] [place] [address]- 8758 Apr, [facility] [place] [facility] [address] [id number] [place] [address]- 6315 March, [facility] [place] [facility] [address] [id number] [place] [address]- 9336 March, [facility] [place] [facility] [address] [id number] [place] [address]- 8516 March, [facility] [place] [facility] [address] [id number] [place] [address]- 6303 March, [facility] [place] [facility] [address] [id number] [place] [address]- 2708 March, [facility] [place] [facility] [address] [id number] [place] [address]- 8077 March, [facility] [place] [facility] [address] [id number] [place] [address]- 4314 Feb, [facility] [place] [facility] [address] [id number] [place] [address]- 5528 Feb, [facility] [place] [facility] [address] [id number] [place] [address]- 0382 Feb, [facility] [place] [facility] [address] [id number] [place] [address]- 9384 Feb, [facility] [place] [facility] [address] [id number] [place] [address]- 2068 Feb, [facility] [place] [facility] [address] [id number] [place] [address]- 2285 Feb, [facility] [place] [facility] [address] [id number] [place] [address]- 7018 Feb, [facility] [place] [facility] [address] [id number] [place] [address]- 9491 Feb, [facility] [place] [facility] [address] [id number] [place] [address]- 9681 Feb, [facility] [place] [facility] [address] [id number] [place] [address]- 0110 Feb, [facility] [place] [facility] [address] [id number] [place] [address]- 0078 Jan, [facility] [place] [facility] [address] [id number] [place] [address]- 2202 24 Jan, 2014 [facility] [place] [facility] [address] [id number] [place] [address]- 6959 Jan, [facility] [place] [facility] [address] [id number], [place] [address]- 1626 Jan, [facility] [id number] [address]- 9811 Dec, [facility] [address] [facility] [id number], [place] [address]- 9866 Dec, [facility] [address], [place] [address]- 3654 Sep, [facility] [address] [facility] [id number], [place] [address]- 6543 Sep, [facility] [address] [facility] [id number], [place] [address]- 5057 Aug, [facility] [address] [facility] [id number] [place] [address] 51502- 9156 Aug, [facility] [address]- 5669 Aug, [facility] [address] [address]- 4075 Aug, [facility] [address], [place] [address]- 9201 Aug, [facility] [address], [place] [address]- 3147 May, [facility] [id number] [address] Jan, [facility] [id number], [place] [address] Jan, [facility] [id number], [place] [address] Dec, IMMUNIZATIONS No Known Immunizations SOCIAL HISTORY Never Assessed REASON FOR VISIT Lab (walk-in) PLAN OF CARE VITAL SIGNS MEDICATIONS Unknown Medications RESULTS No Results PROCEDURES Procedure Date Ordered Result Body Site LAB NOT BILLED BY [facility] Dec 11, 2017 BRE, MARNIE* Dec 11, 2017 INSTRUCTIONS MEDICATIONS ADMINISTERED No Known Medications MEDICAL (GENERAL) HISTORY Type Description Date Medical History Asthma Medical History Hives since 2000 Surgical History spinal fusion 2014 Surgical History Tonsillectomy Surgical History Appendectomy Surgical History section Surgical History epidural anesthesia/injection Surgical History Hemorrhoidecomy with umu Surgical History colonoscopy
--- OUTSIDE RECORDS SUMMARY | 2018-10-18 19:51 | XMS REPORT ---
Author Author FLORENCIA HINOJOSA Organization [facility] Address [address] [place] [address] Care Team Providers Care Regulatory Lead Name Role Phone FLORNECIA HINOJOSA Unavailable PROBLEMS Type Condition ICD9-CM Code UCM44-SE Code Onset Dates Condition Status SNOMED Code Problem Arthritis M19.90 Active 8137657 Problem Chronic fatigue R53.82 Active 41176988 Problem Intractable migraine without aura and without status migrainosus G43.019 Active 822666010 Problem Memory loss R41.3 Active 92223118 Problem Other chronic pain G89.29 Active 13029412 Problem Mental status change resolved Z86.59 Active 649095160 ALLERGIES Substance Reaction Event Type Date Status SulfADIAZINE Unknown Drug Allergy Sep, Active Prednisone nausea and vomiting Drug Allergy Sep, Active Morphine Sulfate nausea and vomiting Drug Allergy Sep, Active ENCOUNTERS Encounter Location Date Diagnosis [facility] [id number] [place] [address] 69802- 5409 Apr, [facility] [id number] [place] [address] 55877- 5742 March, [facility] [id number] [place] [address] 98603- 9097 March, Intractable migraine without aura and without status migrainosus G43.019 [facility] [address] [address] 8[address] March, [facility] [id number] [place] [address] 40777- 3922 March, [facility] [id number] [place] [address] 03617- 2081 Feb, Intractable migraine without aura and without status migrainosus G43.019 [facility] [id number] [place] [address] 31603- 3997 Feb, Memory loss R41.3 and Pineal gland cyst E34.8 [facility] [id number] [place] [address] 52463- 3520 Feb, Intractable migraine without aura and without status migrainosus G43.019 [facility] [id number] [place] [address] 04672- 4226 Jan, Intractable migraine without aura and without status migrainosus G43.019 [facility] [id number] [place] [address] 51498- 9557 Dec, [facility] [id number] [place] [address] 12411- 3375 Dec, Intractable migraine without aura and without status migrainosus G43.019 [facility] [id number] [place] [address] 08519- 7070 Nov, [facility] [id number] [place] [address] 74724- 7506 Nov, Chronic fatigue R53.82 and Family history of thyroid disease Z83.49 [facility] [id number] [place] [address] 14893- 8311 Nov, Arthritis M19.90 ; Chronic fatigue R53.82 ; Family history of thyroid disease Z83.49 ; Grade IV hemorrhoids K64.3 and Other chronic pain G89.29 [facility] [id number] [place] [address] 84832- 0321 Nov, Intractable migraine without aura and without status migrainosus G43.019 [facility] [id number] [place] [address] 12419- 1302 Oct, [facility] [id number] [place] [address] 08986- 1320 Oct, Intractable migraine without aura and without status migrainosus G43.019 [facility] [id number] [place] [address] Oct, [facility] [address] [address]- 9586 Oct, [facility] [address] [place] [address]76 Sep, Tremors of nervous system R25.1 [facility] [address] [place] [address] 09137- 1956 Sep, [facility] [id number] [place] [address] 63097- 2266 Sep, Intractable migraine without aura and without status migrainosus G43.019 [facility] [id number] [place] [address] 68701- 4056 Sep, [facility] [id number] [place] [address] 18771- 7746 Sep, [facility] [id number] [place] [address] 32003- 3435 Sep, Acute medial meniscus tear of right knee, initial encounter S83.241A and Acute lateral meniscus tear of left knee, initial encounter S83.282A [facility] [id number] [place] [address] 94139- 2676 Aug, Intractable migraine without aura and without status migrainosus G43.019 [facility] [address], [place] [address]- 3646 Aug, [facility] [address] [address]- 2546 Aug, [facility] [id number] [place] [address] 90469- 9916 Jul, [facility] [address] [place] [address] 56407- 0066 Jul, [facility] [address] [place] [address] 83989- 8836 Jul, Intractable migraine without aura and without status migrainosus G43.019 ; Memory loss R41.3 ; Mental status change resolved Z86.59 ; Other chronic pain G89.29 and Pain in right knee M25.561 [facility] [id number] [place] [address] 67822- 6680 Jul, [facility] [id number] [place] [address] 85158- 8222 Jun, Tremors of nervous system R25.1 and Pelvic pain R10.2 [facility] [id number] [place] [address] 20912- 1526 Jun, [facility] [id number] [place] [address] 98758- 9917 Jun, [facility] [id number] [place] [address] 84715- 9427 Jun, [facility] [id number] [place] [address] 86119- 0899 May, [facility] [id number] [place] [address] 57724- 7865 May, [facility] [id number] [place] [address] 73597- 1411 May, Kidney pain N23 [facility] [id number] [place] [address] 00951- 9339 May, Pelvic pain R10.2 [facility] [id number] [place] [address] 74616 -9528 May, Wasp sting, accidental or unintentional, initial encounter T63.461A and Allergic contact dermatitis due to other agents L23.89 [facility] [id number] [place] [address] 98172- 0656 May, [facility] [id number] [place] [address] 96086- 9346 May, Pelvic pain R10.2 [facility] [id number] [place] [address] 77073- 2542 May, [facility] [id number] [place] [address] 98120- 4106 Apr, Tremors of nervous system R25.1 ; Blood in stool, gabby K92.1 ; Pineal gland cyst E34.8 ; Memory loss R41.3 and Intractable migraine without aura and without status migrainosus G43.019 [facility] [id number] [place] [address] 99632- 2546 Apr, Blood in stool, gabby K92.1 [facility] [id number] [place] [address] 01932- 2857 Apr, Tremors of nervous system R25.1 ; Pineal gland cyst E34.8 ; Memory loss R41.3 and Intractable migraine without aura and without status migrainosus G43.019 [facility] [id number] [place] [address] 54288- 9036 Apr, [facility] [id number] [place] [address] 88537- 0534 Apr, Tremor R25.1 [facility] [id number] [place] [address] 15281- 2154 March, [facility] [id number] [place] [address] 06139- 4482 March, Cyst of right ovary N83.201 [facility] [id number] [place] [address] 62846- 9945 March, Blood in stool, gabby K92.1 and Other fatigue R53.83 [facility] [id number] [place] [address] 64166- 9925 March, Cyst of right ovary N83.201 [facility] [id number] [place] [address] 24991- 7665 Feb, [facility] [id number] [place] [address] 80619- 4075 Feb, [facility] [id number] [place] [address] 10097- 3888 Feb, Cyst of right ovary N83.201 and Right lower quadrant abdominal pain R10.31 [facility] [id number] [place] [address] 61588- 0907 Jan, Pelvic pain R10.2 [facility] [address] 52983- 7589 Jan, [facility] [id number] [place] [address] 57124- 2058 Jan, [facility] [id number] [place] [address] 07723- 6224 Jan, Left groin pain R10.30 [facility] [id number] [place] [address] 58439- 5195 Dec, [facility] [id number] [place] [address] 98548- 5471 Dec, Pelvic pain R10.2 and Lumbosacral neuritis M54.17 [facility] [id number] [place] [address] 86384- 7681 Dec, [facility] [id number] [place] [address] 39404- 4015 Dec, Lymph node enlargement R59.9 [facility] [id number] [place] [address] 16663- 2635 Nov, Lymph node enlargement R59.9 [facility] [id number] [place] [address] 92876- 7485 Nov, [facility] [id number] [place] [address] 147177- 0747 Nov, Left groin pain R10.30 [facility] [id number] [place] [address] 72178- 9433 12 Arthur, 2017 Varicose vein of leg I83.90 ; Essential hypertension I10 and Short lasting unilateral neuralgiform headache with conjunctival injection and tearing (SUNCT), not intractable G44.059 [facility] [address] [address] 07 Jul, 2016 Post concussion syndrome F07.81 [facility] [id number] [place] [address] 12706- 8477 Jul, [facility] [id number] [place] [address] 594396- 7654 Oct, [facility] [id number] [place] [address] 06788- 7513 Oct, [facility] [id number] [place] [address] 29974- 8240 Aug, [facility] [id number] [place] [address] 90464- 4655 Aug, Obesity 278.00 [facility] [id number] [place] [address] 60877- 4709 Aug, [facility] [id number] [place] [address] 79242- 4114 Jul, Obesity 278.00 and Cervical spondylosis without myelopathy 721.0 [facility] [id number] [address]- 5655 March, [facility] [id number] [place] [address] 69383- 5376 Feb, Cervical spondylosis 721.0 [facility] [id number] [place] [address] 56793- 6491 Feb, [facility] [id number] [place] [address] 16345- 0900 Feb, [facility] [address] [address] 7372 Jan, [facility] [address] [place] [address]- 0632 Jan, [facility] [place] [facility] [address] [id number] [place] [address]- 8605 Jan, [facility] [place] [facility] [address] [id number] [place] [address]- 4103 Jan, [facility] [place] [facility] [address] [id number] [place] [address]- 7631 Jan, [facility] [place] [facility] [address] [id number] [place] [address]- 9009 Jan, [facility] [place] [facility] [address] [id number] [place] [address]- 4771 Dec, [facility] [place] [facility] [address] [id number] [place] [address]- 5028 Dec, 2014 [facility] [place] [facility] [address] [id number] [place] [address]- 7612 Dec, [facility] [place] [facility] [address] [id number] [place] [address]- 6701 Dec, [facility] [place] [facility] [address] [id number] [place] [address]- 2094 Nov, [facility] [place] [facility] [address] [id number] [place] [address]- 6666 Nov, [facility] [place] [facility] [address] [id number] [place] [address]- 3773 16 Nov, 2014 [facility] [place] [facility] [address] [id number] [place] [address]- 8933 15 Nov, 2014 [facility] [place] [facility] [address] [id number] [place] [address]- 9393 Nov, [facility] [place] [facility] [address] [id number] [place] [address]- 4188 Nov, [facility] [place] [facility] [address] [id number] [place] [address]- 6552 Nov, [facility] [place] [facility] [address] [id number] [place] [address]- 8575 Nov, [facility] [place] [facility] [address] [id number] [place] [address]- 9905 Oct, [facility] [place] [facility] [address] [id number] [place] [address]- 2301 Oct, [facility] [place] [facility] [address] [id number] [place] [address]- 8484 Sep, [facility] [place] [facility] [address] [id number] [place] [address]- 4485 Sep, [facility] [place] [facility] [address] [id number] [place] [address]- 1903 Sep, [facility] [place] [facility] [address] [id number] [place] [address]- 2640 Sep, [facility] [place] [facility] [address] [id number] [place] [address]- 2723 29 Jul, 2014 [facility] [place] [facility] [address] [id number] [place] [address]- 9677 29 Jul, 2014 [facility] [place] [facility] [address] [id number] [place] [address]- 8878 26 Jul, 2014 [facility] [place] [facility] [address] [id number] [address]- 6274 26 Jul, 2013 [facility] [place] [facility] [address] [id number] [address]- 2737 19 Jul, 2013 [facility] [place] [facility] [address] [id number] [place] [address]- 2545 19 Jul, 2013 [facility] [place] [facility] [address] [id number] [place] [address]- 6846 19 Jul, 2013 [facility] [place] [facility] [address] [id number] [place] [address]- 7282 19 Jul, 2013 [facility] [place] [facility] [address] [id number] [place] [address]- 8135 Jul, [facility] [place] [facility] [address] [id number] [place] [address]- 5639 Jul, [facility] [place] [facility] [address] [id number] [place] [address]- 0176 Jun, [facility] [place] [facility] [address] [id number] [place] [address]- 8977 Jun, [facility] [place] [facility] [address] [id number] [place] [address]- 1665 Jun, [facility] [place] [facility] [address] [id number] [place] [address]- 3536 Jun, [facility] [place] [facility] [address] [id number] [place] [address]- 8485 Jun, [facility] [place] [facility] [address] [id number] [place] [address]- 6187 Jun, [facility] [place] [facility] [address] [id number] [place] [address]- 0150 May, [facility] [place] [facility] [address] [id number] [place] [address]- 5934 May, [facility] [place] [facility] [address] [id number] [place] [address]- 7497 May, [facility] [place] [facility] [address] [id number] [place] [address]- 1014 May, [facility] [place] [facility] [address] [id number] [place] [address]- 4799 May, [facility] [place] [facility] [address] [id number] [place] [address]- 2111 May, [facility] [place] [facility] [address] [id number] [place] [address]- 8940 Apr, [facility] [place] [facility] [address] [id number] [place] [address]- 6442 Apr, [facility] [place] [facility] [address] [id number] [place] [address]- 6275 Apr, [facility] [place] [facility] [address] [id number] [place] [address]- 9559 Apr, [facility] [place] [facility] [address] [id number] [place] [address]- 5698 Apr, [facility] [place] [facility] [address] [id number] [place] [address]- 7761 Apr, [facility] [place] [facility] [address] [id number] [place] [address]- 1888 Apr, [facility] [place] [facility] [address] [id number] [place] [address]- 7214 Apr, [facility] [place] [facility] [address] [id number] [place] [address]- 0545 Apr, [facility] [place] [facility] [address] [id number] [place] [address]- 8592 Apr, [facility] [place] [facility] [address] [id number] [place] [address]- 7961 Apr, [facility] [place] [facility] [address] [id number] [place] [address]- 4123 Apr, [facility] [place] [facility] [address] [id number] [place] [address]- 6822 Apr, [facility] [place] [facility] [address] [id number] [place] [address]- 1472 March, [facility] [place] [facility] [address] [id number] [place] [address]- 3318 March, [facility] [place] [facility] [address] [id number] [place] [address]- 1293 March, [facility] [place] [facility] [address] [id number] [place] [address]- 0906 March, [facility] [place] [facility] [address] [id number] [place] [address]- 8569 March, [facility] [place] [facility] [address] [id number] [place] [address]- 6503 March, [facility] [place] [facility] [address] [id number] [place] [address]- 9874 Feb, [facility] [place] [facility] [address] [id number] [place] [address]- 6855 Feb, [facility] [place] [facility] [address] [id number] [place] [address]- 3543 Feb, [facility] [place] [facility] [address] [id number] [place] [address]- 9215 Feb, [facility] [place] [facility] [address] [id number] [place] [address]- 2440 Feb, [facility] [place] [facility] [address] [id number] [place] [address]- 2668 Feb, [facility] [place] [facility] [address] [id number] [place] [address]- 2291 Feb, [facility] [place] [facility] [address] [id number] [place] [address]- 9513 Feb, [facility] [place] [facility] [address] [id number] [place] [address]- 8504 Feb, [facility] [place] [facility] [address] [id number] [place] [address]- 8171 Feb, [facility] [place] [facility] [address] [id number] [place] [address]- 0796 24 Jan, 2014 [facility] [place] [facility] [address] [id number] [place] [address]- 0283 Jan, [facility] [place] [facility] [address] [id number] [place] [address]- 1772 Jan, [facility] [place] [facility] [address] [id number] [place] [address]- 2177 Jan, [facility] [place] [facility] [address] [address]- 3676 Dec, [facility] [address] [address]- 4826 Dec, [facility] [address] [address]- 5046 Sep, [facility] [address] [address]- 2486 Sep, [facility] [address] [address]- 5355 Aug, [facility] [address] [address]- 7533 Aug, [facility] [address] [address]- 6687 Aug, [facility] [address] [address]- 3214 Aug, [facility] [address] 9066 Aug, [facility] [address] [address]- 6960 May, [facility] [address] [address]- 6375 Jan, [facility] [address] [address]- 6366 Jan, [facility] [id number] [address]- 6026 Dec, IMMUNIZATIONS No Known Immunizations SOCIAL HISTORY [...]
--- OUTSIDE RECORDS SUMMARY | 2018-10-18 19:52 | XMS REPORT ---
Author Author FLORENCIA HINOJOSA Organization [facility] Address [address] [place] [address] Care Team Providers Care Student Worker Name Role Phone FLORENCIA HINOJOSA Unavailable PROBLEMS Type Condition ICD9-CM Code LRQ37-TY Code Onset Dates Condition Status SNOMED Code Problem Arthritis M19.90 Active 7551144 Problem Chronic fatigue R53.82 Active 67179556 Problem Intractable migraine without aura and without status migrainosus G43.019 Active 193822249 Problem Memory loss R41.3 Active 08072381 Problem Other chronic pain G89.29 Active 82746569 Problem Mental status change resolved Z86.59 Active [id number] ALLERGIES No Information ENCOUNTERS Encounter Location Date Diagnosis [place] [address] [address] Apr, [facility] [address] [address] March, [place] [address] [address]- [address] March, [facility] [address] [address]- 4535 Feb, Intractable migraine without aura and without status migrainosus G43.019 [facility] [address] [place] [id number] [place] [address] 10023- 2461 Feb, Memory loss R41.3 and Pineal gland cyst E34.8 [facility] [address] [address]- 6767 Feb, Intractable migraine without aura and without status migrainosus G43.019 [facility] [address] [place] [id number] [place] [address] 71318- 7226 Jan, Intractable migraine without aura and without status migrainosus G43.019 [facility] [address] [address] Dec, [facility] [address] [place] [id number] [place] [address] 96863- 8456 Dec, Intractable migraine without aura and without status migrainosus G43.019 [place] [id number] [place] [address] 17130- 9396 Nov, [place] [address] [place] [id number] [place] [address] 43941- 6401 Nov, Chronic fatigue R53.82 and Family history of thyroid disease Z83.49 [place] [address] [place] [id number] [place] [address] 26758- 0074 Nov, Arthritis M19.90 ; Chronic fatigue R53.82 ; Family history of thyroid disease Z83.49 ; Grade IV hemorrhoids K64.3 and Other chronic pain G89.29 [place] [address] [place] [id number] [address] Nov, Intractable migraine without aura and without status migrainosus G43.019 [place] [id number] [place] [address] 94979- 3675 Oct, [place] [id number] [place] [address] 08228- 0211 Oct, Intractable migraine without aura and without status migrainosus G43.019 [place] [address] [address]- 3866 Oct, [place] [id number] [place] [address] 03483- 2746 Oct, [place] [id number] [place] [address] 55988- 6903 Sep, Tremors of nervous system R25.1 [place] [address] [place] [id number] [place] [address] 91761- 2319 Sep, [facility] [id number] [place] [address] 37054- 3986 Sep, Intractable migraine without aura and without status migrainosus G43.019 [facility] [address] [place] [id number] [place] [address] 91716- 9256 Sep, [facility] [address] [place] [id number] [place] [address] 09442- 6486 Sep, [facility] [address] [place] [id number] [place] [address] 31553- 2311 Sep, Acute medial meniscus tear of right knee, initial encounter S83.241A and Acute lateral meniscus tear of left knee, initial encounter S83.282A [facility] [address] [place] [id number] [place] [address] 16996- 6816 Aug, Intractable migraine without aura and without status migrainosus G43.019 [facility] [address] [place] [id number] [place] [address] 89176- 7076 Aug, [facility] [address] [place] [id number] [place] [address] 72938- 7102 Aug, [facility] [address] [id number] [place] [address] 36455- 3906 Jul, [facility] [address] [place] [id number] [place] [address] 50547- 6026 Jul, [facility] [address] [place] [id number] [place] [address] 41495- 2541 Jul, Intractable migraine without aura and without status migrainosus G43.019 ; Memory loss R41.3 ; Mental status change resolved Z86.59 ; Other chronic pain G89.29 and Pain in right knee M25.561 [facility] [address] [place] [id number] [place] [address] 39469- 8836 18 Jul, 2017 [facility] [address] [place] [id number] [place] [address] 75445- 3011 Jun, Tremors of nervous system R25.1 and Pelvic pain R10.2 [facility] [address] [place] [id number] [place] [address] 41343- 7964 Jun, [facility] [address] [place] [id number] [place] [address] 18833- 4091 Jun, [facility] [address] [place] [id number] [place] [address] 39575- 0579 Jun, [facility] [address] [place] [id number] [place] [address] 93784- 5235 May, [facility] [address] [place] [id number] [place] [address] 47880- 7059 May, [facility] [address] [place] [id number] [place] [address] 60221- 1165 May, Kidney pain N23 [facility] [address] [place] [id number] [place] [address] 21367- 8099 May, Pelvic pain R10.2 [facility] [address] [place] [id number] [place] [address] 18976 -7976 May, Wasp sting, accidental or unintentional, initial encounter T63.461A and Allergic contact dermatitis due to other agents L23.89 [facility] [address] [place] [id number] [place] [address] 25994- 2654 May, [facility] [address] [place] [id number] [place] [address] 25024- 9267 May, Pelvic pain R10.2 [facility] [address] [place] [id number] [place] [address] 43118- 0431 May, [facility] [address] [place] [id number] [place] [address] 20383- 8966 Apr, Tremors of nervous system R25.1 ; Blood in stool, gabby K92.1 ; Pineal gland cyst E34.8 ; Memory loss R41.3 and Intractable migraine without aura and without status migrainosus G43.019 [facility] [address] [place] [address]- 6844 Apr, Blood in stool, gabby K92.1 [place] [address] 68437- 2613 Apr, Tremors of nervous system R25.1 ; Pineal gland cyst E34.8 ; Memory loss R41.3 and Intractable migraine without aura and without status migrainosus G43.019 [place] [address] 11839- 9385 Apr, [place] [address] [place] [id number] [place] [address] 39905- 1037 Apr, Tremor R25.1 [place] [address] 21067- 9038 March, [place] [address] [place] [id number] [place] [address] 01812- 4567 March, Cyst of right ovary N83.201 [place] [address] [place] [id number] [place] [address] 88648- 3305 March, Blood in stool, gabby K92.1 and Other fatigue R53.83 [place] [address] [place] [id number] [place] [address] 26557- 1779 March, Cyst of right ovary N83.201 [place] [address] [place] [id number] [place] [address] 33484- 2148 Feb, [place] [address] [place] [id number] [place] [address] 57365- 8986 Feb, [place] [address] [place] [id number] [place] [address] 76939- 9194 Feb, Cyst of right ovary N83.201 and Right lower quadrant abdominal pain R10.31 [place] [address] [place] [id number] [place] [address] 69113- 7002 Jan, Pelvic pain R10.2 [place] [address] 75715- 2277 Jan, [facility] [address] [place] [id number] [place] [address] 10421- 4381 Jan, [facility] [address] [place] [id number] [place] [address] 70545- 7097 Jan, Left groin pain R10.30 [facility] [address] [place] [id number] [place] [address] 12567- 8813 Dec, [facility] [address] [place] [id number] [place] [address] 37608- 2763 Dec, Pelvic pain R10.2 and Lumbosacral neuritis M54.17 [facility] [address] [place] [id number] [place] [address] 97684- 7258 Dec, [facility] [address] [place] [id number] [place] [address] 02043- 0345 Dec, Lymph node enlargement R59.9 [facility] [address] [place] [id number] [place] [address] 52605- 9357 Nov, Lymph node enlargement R59.9 [facility] [address] [place] [id number] [place] [address] 38132- 8877 Nov, [facility] [address] [place] [id number] [place] [address] 97860- 7669 Nov, Left groin pain R10.30 [facility] [address] [place] [id number] [place] [address] 21781- 7067 Nov, Varicose vein of leg I83.90 ; Essential hypertension I10 and Short lasting unilateral neuralgiform headache with conjunctival injection and tearing (SUNCT), not intractable G44.059 [facility] [address] [place] [id number] [place] [address] 83546 -5939 Jul, Post concussion syndrome F07.81 [facility] [address] [place] [id number] [place] [address] 73657- 1677 Jul, [place] [address], [place] [address]- 1803 Oct, [facility] [address], [place] [address]- 0167 Oct, [facility] [address], [place] [address]- 3666 Aug, [facility] [id number] [place] [address] 22037- 2156 Aug, Obesity 278.00 [facility] [address] [place] [id number] [place] [address] 52649- 7753 Aug, [facility] [id number] [place] [address] 30679- 5064 Jul, Obesity 278.00 and Cervical spondylosis without myelopathy 721.0 [facility] [address], [place] [address]- 1696 March, [facility] [address] [address]- 9462 30 Feb, 2015 Cervical spondylosis 721.0 [facility] [address] [address]- 8928 14 Feb, 2015 [facility] [address], [place] [address]- 1365 Feb, [facility] [address], [place] [address]- 2326 Jan, [facility] [address], [place] [address] 2546 Jan, [facility] [address], [place] [address]- 4586 Jan, [facility] [address], [place] [address]- 2546 Jan, [facility] [address], [place] [address] 3391 Jan, [facility] [place] [facility] [address] [id number] [place] [address]- 0333 Jan, [facility] [place] [facility] [address] [id number] [place] [address]- 6762 Dec, [facility] [place] [facility] [address] [id number] [place] [address]- 3031 Dec, [facility] [place] [facility] [address] [id number] [place] [address]- 4614 Dec, [facility] [place] [facility] [address] [id number] [place] [address]- 8424 Dec, [facility] [place] [facility] [address] [id number] [place] [address]- 4629 Nov, [facility] [place] [facility] [address] [id number] [place] [address]- 7901 Nov, [facility] [place] [facility] [address] [id number] [place] [address]- 6312 Nov, [facility] [place] [facility] [address] [id number] [place] [address]- 9838 Nov, [facility] [place] [facility] [address] [id number] [place] [address]- 6051 Nov, [facility] [place] [facility] [address] [id number], [place] [address]- 8100 Nov, [facility] [place] [facility] [address] [id number] [address]- 9296 Nov, [facility] [place] [facility] [address] [id number] [place] [address]- 6928 Nov, [facility] [place] [facility] [address] [id number], [place] [address]- 0597 Oct, [facility] [place] [facility] [address] [id number] [place] [address]- 2842 Oct, [facility] [place] [facility] [address] [id number] [place] [address]- 9056 Sep, [facility] [place] [facility] [address] [id number] [place] [address]- 2221 Sep, [facility] [place] [facility] [address] [id number] [place] [address]- 6702 Sep, [facility] [place] [facility] [address] [id number] [place] [address]- 3873 Sep, [facility] [place] [facility] [address] [id number] [place] [address]- 8489 29 Jul, 2014 [facility] [place] [facility] [address] [id number] [place] [address]- 3955 29 Jul, 2014 [facility] [place] [facility] [address] [id number] [place] [address]- 3641 Jul, [facility] [place] [facility] [address] [id number] [place] [address]- 6912 Jul, 2013 [facility] [place] [facility] [address] [id number] [place] [address]- 254 Jul, 2013 [facility] [place] [facility] [address] [id number] [place] [address]- 5815 Jul, [facility] [place] [facility] [address] [id number] [place] [address]- 2545 Jul, [facility] [place] [facility] [address] [id number] [place] [address]- 3922 Jul, [facility] [place] [facility] [address] [id number] [place] [address]- 2549 Jul, [facility] [place] [facility] [address] [id number] [place] [address] 2542 Jul, [facility] [place] [facility] [address] [id number] [place] [address]- 9525 Jun, [facility] [place] [facility] [address] [id number] [place] [address]- 2106 Jun, [facility] [place] [facility] [address] [id number] [place] [address]- 0598 Jun, [facility] [place] [facility] [address] [id number] [place] [address]- 2323 Jun, [facility] [place] [facility] [address] [id number] [place] [address]- 0433 Jun, [facility] [place] [facility] [address] [id number] [place] [address]- 2472 Jun, [facility] [place] [facility] [address] [id number] [place] [address]- 3547 May, [facility] [place] [facility] [address] [id number] [place] [address]- 7163 May, [facility] [place] [facility] [address] [id number] [place] [address]- 3265 May, [facility] [place] [facility] [address] [id number] [place] [address]- 6396 May, [facility] [place] [facility] [address] [id number] [place] [address]- 4711 May, [facility] [place] [facility] [address] [id number] [place] [address]- 9377 May, [facility] [place] [facility] [address] [id number] [place] [address]- 5720 Apr, [facility] [place] [facility] [address] [id number] [place] [address]- 7517 Apr, [facility] [place] [facility] [address] [id number] [place] [address]- 2582 Apr, [facility] [place] [facility] [address] [id number] [place] [address]- 5683 Apr, [facility] [place] [facility] [address] [id number] [place] [address]- 3358 Apr, [facility] [place] [facility] [address] [id number] [place] [address]- 6855 Apr, [facility] [place] [facility] [address] [id number] [place] [address]- 3777 Apr, [facility] [place] [facility] [address] [id number] [place] [address]- 9834 Apr, [facility] [place] [facility] [address] [id number] [place] [address]- 8751 Apr, [facility] [place] [facility] [address] [id number] [place] [address]- 5876 Apr, [facility] [place] [facility] [address] [id number] [place] [address]- 6540 Apr, [facility] [place] [facility] [address] [id number] [place] [address]- 1906 Apr, [facility] [place] [facility] [address] [id number] [place] [address]- 8554 Apr, [facility] [place] [facility] [address] [id number] [place] [address]- 3294 March, [facility] [place] [facility] [address] [id number] [place] [address]- 2090 March, [facility] [place] [facility] [address] [id number] [place] [address]- 3959 March, [facility] [place] [facility] [address] [id number] [place] [address]- 4041 March, [facility] [place] [facility] [address] [id number] [place] [address]- 2364 March, [facility] [place] [facility] [address] [id number] [place] [address]- 6976 March, [facility] [place] [facility] [address] [id number] [place] [address]- 6099 Feb, [facility] [place] [facility] [address] [id number] [place] [address]- 3560 Feb, [facility] [place] [facility] [address] [id number] [place] [address]- 3349 Feb, [facility] [address] [id number] [place] [address]- 8959 Feb, [facility] [place] [facility] [address] [id number] [place] [address]- 3891 18 Feb, 2014 [facility] [address] [id number] [place] [address]- 2079 18 Feb, 2014 [facility] [place] [facility] [address] [id number] [place] [address]- 4168 15 Feb, 2014 [facility] [address] [id number] [place] [address]- 7754 15 Feb, 2014 [facility] [address] [id number] [place] [address]- 6096 Feb, [facility] [address] [id number] [place] [address]- 4406 Feb, [facility] [address] [id number] [place] [address]- 2386 24 Jan, 2014 [facility] [place] [facility] [address] [id number] [place] [address]- 3594 24 Jan, 2014 [facility] [address] [id number] [place] [address]- 5182 Jan, [facility] [place] [facility] [address] [id number] [place] [address]- 8518 Jan, [facility] [place] [facility] [address] [id number] [place] [address]- 2569 Dec, [facility] [place] [facility] [address] [id number] [place] [address]- 9193 Dec, [facility] [place] [facility] [address] [id number] [place] [address]- 0436 Sep, [facility] [place] [facility] [address] [id number] [place] [address]- 0686 Sep, [facility] [id number] [address]- 4333 Aug, [facility] [address] [facility] [id number] [address]- 0756 Aug, [facility] [id number] [address]- 8976 Aug, [facility] [address], [place] [address]- 9396 Aug, [facility] [address], [place] [address]- 1801 Aug, [facility] [address], [place] [address]- 0806 May, [facility] [address], [place] [address]- 3536 Jan, [facility] [address], [place] [address]- 8156 Jan, [facility] [id number], [place] [address]- 7619 Dec, IMMUNIZATIONS No Known Immunizations SOCIAL HISTORY Never Assessed REASON FOR VISIT update PLAN OF CARE VITAL SIGNS MEDICATIONS Medication Instructions Dosage Frequency Start Date End Date Duration Status Ambien 10 mg Orally Once a day 1 tablet at bedtime as needed 24h Aug, Active RESULTS No Results PROCEDURES No Known procedures INSTRUCTIONS MEDICATIONS ADMINISTERED No Known Medications MEDICAL (GENERAL) HISTORY Type Description Date Medical History Asthma Medical History Hives since 2000 Surgical History spinal fusion 2014 Surgical History Tonsillectomy Surgical History Appendectomy Surgical History section Surgical History epidural anesthesia/injection Surgical History Hemorrhoidecomy with umu Surgical History colonoscopy
--- OUTSIDE RECORDS SUMMARY | 2018-10-18 19:55 | XMS REPORT | Continuity of Care Document ---
Author Author [facility] Address Unknown Phone Unavailable Allergies Active Description Code Type Severity Reaction Onset Reported/Identified Relationship to Patient Clinical Status Yes prednisone Drug Allergy N/A N/A 06/02/2013 Yes prednisone [id number] Drug Allergy Mild N/A 04/27/2017 Yes morphine [id number] Drug Allergy Unknown SEVERE N/V 04/27/2017 Yes Sulfa (Sulfonamide Antibiotics) [id number] Drug Allergy Unknown DECREASE KIDNEY 04/27/2017 Yes metronidazole [id number] Drug Allergy Unknown NAUSEA 06/28/2018 Medications There is no data. Problems Date [...] APRN T V61.10 RL RELATION COUNS 12/31/2011 CHRIS BLACK, BETO Helton 311 DEPRESSIVE DISORDER NOS 12/31/2011 BETO PEREZ [...] APRN T 311 DEPRESSIVE DISORDER NOS 12/31/2011 ASHISH BULL FLORENCIA T V61.10 RL RELATION COUNS 12/31/2011 311 [...] APRN A V61.10 RL RELATION COUNS 12/31/2011 ASHISH ORDER CALLERFLORENCIA 311 DEPRESSIVE DISORDER NOS 12/31/2011 ASHISH BRAUNNFLORENCIA V61.10 RL RELATION COUNS 12/31/2011 ASHISH ORDER CALLER, FLORENCIA T 311 DEPRESSIVE DISORDER NOS 12/31/2011 ASHISH BRAUNNFLORENCIA V61.10 RL RELATION COUNS 12/31/2011 ASHISH BRAUNNFLORENCIA 311 DEPRESSIVE DISORDER NOS 12/31/2011 ASHISH BRAUNNFLORENCIA V61.10 RL RELATION COUNS 06/02/2013 ASHISH BULL FLORENCIA T 455.0 INTERNAL HEMORRHOIDS WITHOUT COMPLICATION 06/02/2013 [...] PEREZ PHD 455.3 HEMORRHOIDS EXTERNAL 06/02/2013 BETO PERZE PHD 578.1 red blood in bowel movement [...] 06/14/2013 LATASHA GRULLON, LONNIE T Ot 300.00 ANXIETY STATE NOS 06/14/2013 LATASHA GRULLON, LONNIE T Ot 305.1 TOBACCO USE DISORDER 06/14/2013 LONNIE PAGAN MD T Ot 311 DEPRESSIVE DISORDER NEC 06/14/2013 LATASHA GRULLON, LONNIE T Ot 719.43 JOINT PAIN-FOREARM 06/14/2013 LATASHA GRULLON, LONNIE T Ot 729.5 PAIN IN LIMB 06/14/2013 LATASHA GRULLON, LONNIE T Ot 782.0 SKIN SENSATION DISTURB 06/14/2013 LATASHA GRULLON, LONNIE T Ot 840.9 SPRAIN SHOULDER/ARM NOS 06/14/2013 LATASHA GRULLON, LONNIE T Ot E000.8 OTHER EXTERNAL CAUSE STATUS 06/14/2013 LONNIE PAGAN MD T Ot E006.0 ACTIVITIES INVOLVING ROLLER SKATING (INL 06/14/2013 LATASHA GRULLON, LONNIE T Ot E885.1 ACCIDENT DUE TO ROLLERSKATE 09/12/2013 FLORENCIA HINOJOSA APRN 564.1 IRRITABLE BOWEL SYNDROME 09/12/2013 CAITLYN ARGUETA DO 564.1 IRRITABLE BOWEL SYNDROME 09/12/2013 FLORENCIA HINOJOSA APRN 564.1 IRRITABLE BOWEL SYNDROME 09/12/2013 CHRIS BLACK, BETO Helton 564.1 IRRITABLE BOWEL SYNDROME 09/12/2013 CHRIS PHD, BETO Helton 564.1 IRRITABLE BOWEL SYNDROME 09/12/2013 CHRIS BLACK, BETO Helton 564.1 IRRITABLE BOWEL SYNDROME 09/12/2013 CHRIS PHD, BETO D 564.1 IRRITABLE BOWEL SYNDROME 09/12/2013 FLORENCIA HINOJOSA APRN T 564.1 IRRITABLE BOWEL SYNDROME 09/12/2013 CHRIS PHD, BETO D 564.1 IRRITABLE BOWEL SYNDROME 09/12/2013 CHRIS PHD, BETO D 564.1 IRRITABLE BOWEL SYNDROME 09/12/2013 FLORENCIA HINOJOSA APRN T 564.1 IRRITABLE BOWEL SYNDROME 09/12/2013 FLORENCIA HINOJOSA APRN T 564.1 IRRITABLE BOWEL SYNDROME 09/12/2013 FLORENCIA HINOJOSA APRN T 564.1 IRRITABLE BOWEL SYNDROME 09/12/2013 CHRIS PHD, BETO Helton 564.1 IRRITABLE BOWEL SYNDROME 09/12/2013 FLORENCIA HINOJOSA APRN T 564.1 IRRITABLE BOWEL SYNDROME 09/12/2013 FLORENCIA HINOJOSA APRN T 564.1 IRRITABLE BOWEL SYNDROME 09/12/2013 CHRIS PHD, BETO D 564.1 IRRITABLE BOWEL SYNDROME 09/12/2013 FLORENCIA HINOJOSA APRN T 564.1 IRRITABLE BOWEL SYNDROME 09/12/2013 564.1 IRRITABLE BOWEL SYNDROME 09/12/2013 FLORENCIA HINOJOSA APRN T 564.1 IRRITABLE BOWEL SYNDROME 09/12/2013 FLORENCIA HINOJOSA APRN T 564.1 IRRITABLE BOWEL SYNDROME 09/12/2013 MARTA NAPIER APRN 564.1 IRRITABLE BOWEL SYNDROME 09/12/2013 FLORENCIA HINOJOSA APRN T 564.1 IRRITABLE BOWEL SYNDROME 09/12/2013 FLORENCIA HINOJOSA APRN T 564.1 IRRITABLE BOWEL SYNDROME 09/12/2013 FLORENCIA HINOJOSA APRN T 564.1 IRRITABLE BOWEL SYNDROME 09/28/2013 LATASHA GRULLON, LONNIE T Ot 723.4 BRACHIAL NEURITIS NOS 09/28/2013 LATASHA GRULLON, LONNIE T Ot 784.0 HEADACHE 10/17/2013 GEORGIE GRULLON, MAYELIN Kaur Ot 455.3 EXT HEMORRHOID W/O COMPL 11/11/2013 HERRERA AGUILERA ORDER CALLER Ot 521.00 UNSPEC DENTAL CARIES 11/11/2013 HERRERA AGUILERA ORDER CALLER Ot 523.10 CHRONIC GINGIVITIS, PLAQUE INDUCED 11/11/2013 HERRERA AGUILERA APRN Ot 525.9 DENTAL DISORDER NOS 01/16/2014 FLORENCIA HINOJOSA APRN 780.93 MEMORY LOSS [...] MO DYSTHYMIC DISORDER 02/08/2014 FLORENCIA HINOJOSA APRN 294.9 OR COG DIS NOS 02/08/2014 FLORENCIA HINOJOSA APRN 300.02 AN GEN ANXIETY 02/08/2014 FLOERNCIA HINOJOSA APRN 300.4 MO DYSTHYMIC DISORDER 02/08/2014 [...] HINOJOSA APRN 300.4 MO DYSTHYMIC DISORDER 02/08/2014 FLORENCIA HINOJOSA APRN T 294.9 OR COG DIS NOS 02/08/2014 FLORENCIA HINOJOSA APRN T 300.02 AN GEN ANXIETY 02/08/2014 FLORENCIA HINOJOSA APRN 300.4 MO DYSTHYMIC DISORDER 02/08/2014 FLORENCIA HINOJOSA [...] APRN T 300.02 AN GEN ANXIETY 02/08/2014 ASHISH ORDER CALLER, FLORENCIA T 300.4 MO DYSTHYMIC DISORDER 02/08/2014 FLORENCIA HINOJOSA APRN 294.9 OR COG DIS NOS 02/08/2014 FLORENCIA HINOJOSA APRN 300.02 AN GEN ANXIETY 02/08/2014 FLORENCIA HINOJOSA APRN 300.4 MO DYSTHYMIC DISORDER 02/08/2014 CHRIS BLACK, BETO Helton 294.9 OR COG DIS NOS 02/08/2014 CHRIS PHD, BETO Hel[place] 300.02 AN GEN ANXIETY 02/08/2014 CHRIS BLACK, BETO [place] 300.4 MO DYSTHYMIC DISORDER 02/08/2014 FLORENCIA HINOJOSA APRN 294.9 OR COG DIS NOS 02/08/2014 FLORENCIA HINOJOSA APRN T 300.02 AN GEN ANXIETY 02/08/2014 FLORENCIA HINOJOSA APRN 300.4 MO DYSTHYMIC DISORDER 02/08/2014 294.9 OR COG DIS NOS 02/08/2014 300.02 AN GEN ANXIETY 02/08/2014 300.4 MO DYSTHYMIC DISORDER 02/08/2014 FLORENCIA HINOJOSA APRN 294.9 OR COG DIS NOS 02/08/2014 FLORENCIA HINOJOSA APRN 300.02 AN GEN ANXIETY 02/08/2014 FLORENCIA HINOJOSA APRN 300.4 MO DYSTHYMIC DISORDER 02/08/2014 FLORENCIA HINOJOSA APRN 294.9 OR COG DIS NOS 02/08/2014 FLORENCIA HINOJOSA APRN T 300.02 AN GEN ANXIETY 02/08/2014 FLORENCIA HINOJOSA APRN 300.4 MO DYSTHYMIC DISORDER 02/08/2014 MARTA NAPIER APRN A 294.9 OR COG DIS NOS 02/08/2014 MARTA NAPIER APRN A 300.02 AN GEN ANXIETY 02/08/2014 KARTHIKEYAN BULL MARTA A 300.4 MO DYSTHYMIC DISORDER 02/08/2014 FLORENCIA HINOJOSA APRN 294.9 OR COG DIS NOS 02/08/2014 FLORENCIA HINOJOSA APRN 300.02 AN GEN ANXIETY 02/08/2014 FLORENCIA HINOJOSA APRN 300.4 MO DYSTHYMIC DISORDER 02/08/2014 FLORENCIA HINOJOSA APRN T 294.9 OR COG DIS NOS 02/08/2014 FLORENCIA HINOJOSA APRN 300.02 AN GEN ANXIETY 02/08/2014 FLORENCIA HINOJOSA APRN 300.4 MO DYSTHYMIC DISORDER 02/08/2014 FLORENCIA HINOJOSA APRN 294.9 OR COG DIS NOS 02/08/2014 FLORENCIA HINOJOSA APRN 300.02 AN GEN ANXIETY 02/08/2014 FLORENCIA HINOJOSA APRN 300.4 MO DYSTHYMIC DISORDER 02/13/2014 CHRIS BLACK, BETO Helton 300.00 AN ANXIETY UNSPEC 02/13/2014 CHRIS BLACK, BETO Helton 300.00 AN ANXIETY UNSPEC 02/13/2014 CHRIS BLACK, BETO Hel[place] 300.00 AN ANXIETY UNSPEC 02/13/2014 FLORENCIA HINOJOSA APRN 300.00 AN ANXIETY UNSPEC 02/13/2014 CHRIS BLACK, BETO Helton 300.00 AN ANXIETY UNSPEC 02/13/2014 CHRIS BLACK, BETO Helton 300.00 AN ANXIETY UNSPEC 02/13/2014 FLORENCIA HINOJOSA APRN 300.00 AN ANXIETY UNSPEC 02/13/2014 FLORENCIA HINOJOSA APRN 300.00 AN ANXIETY UNSPEC 02/13/2014 FLORENCIA HINOJOSA APRN 300.00 AN ANXIETY UNSPEC 02/13/2014 CHRIS BLACK, BETO Hel[place] 300.00 AN ANXIETY UNSPEC 02/13/2014 FLORENCIA HINOJOSA APRN 300.00 AN ANXIETY UNSPEC 02/13/2014 FLORENCIA HINOJOSA APRN 300.00 AN ANXIETY UNSPEC 02/13/2014 CHRIS BLACK, BETO Helton 300.00 AN ANXIETY UNSPEC 02/13/2014 FLORENCIA HINOJOSA APRN 300.00 AN ANXIETY UNSPEC 02/13/2014 300.00 AN ANXIETY UNSPEC 02/13/2014 FLORENCIA HINOJOSA APRN 300.00 AN ANXIETY UNSPEC 02/13/2014 FLORENCIA HINOJOSA APRN 300.00 AN ANXIETY UNSPEC 02/13/2014 KARTHIKEYANSally BULL MARTA A 300.00 AN ANXIETY UNSPEC 02/13/2014 FLORENCIA HINOJOSA APRN 300.00 AN ANXIETY UNSPEC 02/13/2014 FLORENCIA HINOJOSA APRN 300.00 AN ANXIETY UNSPEC 02/13/2014 FLORENCIA HINOJOSA APRN 300.00 AN ANXIETY UNSPEC 02/21/2014 BRYAN ZALDIVAR Ot 521.00 UNSPEC DENTAL CARIES 02/21/2014 BRYAN ZALDIVAR Ot 522.5 PERIAPICAL ABSCESS 02/21/2014 BRYAN ZALDIVAR Ot 525.9 DENTAL DISORDER NOS 04/12/2014 FLORENCIA HINOJOSA APRN 780.52 INSOMNIA UNSPECIFIED 04/12/2014 FLORENCIA HINOJOSA APRN 780.52 INSOMNIA UNSPECIFIED 04/12/2014 FLORENCIA HINOJOSA APRN 780.52 INSOMNIA UNSPECIFIED 04/12/2014 CHRIS BLACK, BETO Helton 780.52 INSOMNIA UNSPECIFIED 04/12/2014 FLORENCIA HINOJOSA APRN 780.52 INSOMNIA UNSPECIFIED 04/12/2014 FLORENCIA HINOJOSA APRN 780.52 INSOMNIA UNSPECIFIED 04/12/2014 CHRIS BLACK, BETO Helton 780.52 INSOMNIA UNSPECIFIED 04/12/2014 FLORENCIA HINOJOSA APRN 780.52 INSOMNIA UNSPECIFIED 04/12/2014 780.52 INSOMNIA UNSPECIFIED 04/12/2014 FLORENCIA HINOJOSA APRN T 780.52 INSOMNIA UNSPECIFIED 04/12/2014 FLORENCIA HINOJOSA APRN T 780.52 INSOMNIA UNSPECIFIED 04/12/2014 KARTHIKEYANRONNIE BULL MARTA A 780.52 INSOMNIA UNSPECIFIED 04/12/2014 FLORENCIA HINOJOSA APRN 780.52 INSOMNIA UNSPECIFIED 04/12/2014 FLORENCIA HINOJOSA APRN 780.52 INSOMNIA UNSPECIFIED 04/12/2014 FLORENCIA HINOJOSA APRN 780.52 INSOMNIA UNSPECIFIED 04/26/2014 FLORENCIA HINOJOSA APRN 780.79 FATIGUE 04/26/2014 FLORENCIA HINOJOSA APRN 783.1 WEIGHT GAIN ABNORMAL 04/26/2014 FLORENCIA HINOJOSA APRN T 780.79 FATIGUE 04/26/2014 FLORENCIA HINOJOSA APRN T 783.1 WEIGHT GAIN ABNORMAL 04/26/2014 CHRIS PHD, BETO Helton 780.79 FATIGUE 04/26/2014 CHRIS BLACK, BETO [place] 783.1 WEIGHT GAIN ABNORMAL 04/26/2014 FLORENCIA HINOJOSA APRN 780.79 FATIGUE 04/26/2014 FLORENCIA HINOJOSA APRN 783.1 WEIGHT GAIN ABNORMAL 04/26/2014 FLORENCIA HINOJOSA APRN 780.79 FATIGUE 04/26/2014 FLORENCIA HINOJOSA APRN T 783.1 WEIGHT GAIN ABNORMAL 04/26/2014 CHRIS BLACK, BETO Helton 780.79 FATIGUE 04/26/2014 CHRIS BLACK, BETO Helton 783.1 WEIGHT GAIN ABNORMAL 04/26/2014 FLORENCIA HINOJOSA APRN 780.79 FATIGUE 04/26/2014 FLORENCIA HINOJOSA APRN T 783.1 WEIGHT GAIN ABNORMAL 04/26/2014 780.79 FATIGUE 04/26/2014 783.1 WEIGHT GAIN ABNORMAL 04/26/2014 FLORENCIA HINOJOSA APRN 780.79 FATIGUE 04/26/2014 FLORENCIA HINOJOSA APRN 783.1 WEIGHT GAIN ABNORMAL 04/26/2014 FLORENCIA HINOJOSA APRN 780.79 FATIGUE 04/26/2014 FLORENCIA HINOJOSA APRN 783.1 WEIGHT GAIN ABNORMAL 04/26/2014 KARTHIKEYAN APRN, MARTA A 780.79 FATIGUE 04/26/2014 KARTHIKEYAN APRN, MARTA A 783.1 WEIGHT GAIN ABNORMAL 04/26/2014 FLORENCIA HINOJOSA APRN T 780.79 FATIGUE 04/26/2014 FLORENCIA HINOJOSA APRN T 783.1 WEIGHT GAIN ABNORMAL 04/26/2014 FLORENCIA HINOJOSA APRN 780.79 FATIGUE 04/26/2014 FLORENCIA HINOJOSA APRN 783.1 WEIGHT GAIN ABNORMAL 04/26/2014 FLORENCIA HINOJOSA APRN 780.79 FATIGUE 04/26/2014 FLORENCIA HINOJOSA APRN T 783.1 WEIGHT GAIN ABNORMAL 05/10/2014 FLORENCIA HINOJOSA APRN 716.90 ARTHRITIS/ ARTHROPATHY, UNSPECIFIED 05/10/2014 FLORENCIA HINOJOSA APRN 716.90 ARTHRITIS/ ARTHROPATHY, UNSPECIFIED 05/10/2014 CHRIS BLACK, BETO Helton 716.90 ARTHRITIS/ ARTHROPATHY, UNSPECIFIED 05/10/2014 FLORENCIA HINOJOSA APRN 716.90 ARTHRITIS/ ARTHROPATHY, UNSPECIFIED 05/10/2014 716.90 ARTHRITIS/ ARTHROPATHY, UNSPECIFIED 05/10/2014 FLORENCIA HINOJOSA APRN 716.90 ARTHRITIS/ ARTHROPATHY, UNSPECIFIED 05/10/2014 FLORENCIA HINOJOSA APRN 716.90 ARTHRITIS/ ARTHROPATHY, UNSPECIFIED 05/10/2014 MARTA NAPIER APRN A 716.90 ARTHRITIS/ ARTHROPATHY, UNSPECIFIED 05/10/2014 FLORENCIA HINOJOSA [...] V25.49 CONTRACEPTION SURVEILLANCE (REPEAT RX) 06/14/2014 CHRIS BLACK, BETO Helton 296.32 MO DEPRESSIVE RECURRENT MODERATE 06/14/2014 FLORENCIA HINOJOSA APRN 296.32 MO DEPRESSIVE RECURRENT MODERATE 06/14/2014 296.32 MO DEPRESSIVE RECURRENT MODERATE 06/14/2014 FLORENCIA HINOJOAS APRN 296.32 MO DEPRESSIVE RECURRENT MODERATE 06/14/2014 [...] 12/06/2014 FLORENCIA HINOJOSA APRN 782.3 EDEMA 12/06/2014 FOLRENCIA HINOJOSA APRN 794.4 NONSPECIFIC ABNORMAL RESULTS OF FUNCTION STUDY OF KIDNEY 12/06/2014 FLORENCIA HINOJOSA APRN 782.3 EDEMA 12/06/2014 FLORENCIA HINOJOSA APRN 794.4 NONSPECIFIC ABNORMAL RESULTS OF FUNCTION STUDY OF KIDNEY 01/29/2015 FLORENCIA HINOJOSA APRN 278.00 OBESITY 01/29/2015 FLORENCIA HINOJOSA APRN 721.0 CERVICAL SPONDYLOSIS WITHOUT MYELOPATHY 03/05/2015 Ot 722.4 03/13/2015 MAYELIN JACQUES MD Ot 455.8 03/13/2015 MAYELIN JACQUES MD Ot V72.84 03/28/2015 Ot 722.4 04/21/2015 RUDDY GRULLON, FANY eHlton Ot 521.00 UNSPEC DENTAL CARIES 04/21/2015 FANY FOX MD Ot 525.9 DENTAL DISORDER NOS 04/21/2015 RUDDY GRULLON, FANY Helton Ot K02.9 DENTAL CARIES, UNSPECIFIED 04/25/2015 BRYAN [...] INITIAL E 04/25/2015 BRYAN ZALDIVAR Ot W20.8XXA OT CAUSE OF STRIKE BY THROWN, PROJECTED 04/25/2015 BRYAN ZALDIVAR Ot Y92.[address] IN OT NON-INSTITUTIONAL RESI 04/25/2015 BRYAN ZALDIVAR Ot Y93.H9 ACTVTY,OTH W EXTER PROPERTY LAND MAINT 04/25/2015 BRYAN ZALDIVAR Ot Y99.8 OTHER EXTERNAL [...] OTHER EXTERNAL CAUSE STATUS 07/24/2016 BRYAN ZALDIVAR Ot S00.83XA CONTUSION OF OTHER [...] 12/15/2016 Ot 722.4 CERVICAL DISC DEGEN 12/15/2016 MAYELIN JACQUES MD Ot 455.6 HEMORRHOIDS NOS 12/15/2016 MAYELIN JACQUES MD Ot V72.84 EXAM PRE-OPERATIVE NOS 12/15/2016 MAYELIN JACQUES MD Ot 455.8 HEMRRHOID NOS W COMP NEC 12/15/2016 MAYELIN JACQUES MD Ot V72.84 EXAM PRE-OPERATIVE NOS 12/15/2016 BERNADETTE CUNHA MD, V Ot R94.4 ABNORMAL RESULTS OF KIDNEY FUNCTION STUD 01/14/2017 FLORENCIA HINOJOSA Ot R10.32 LEFT LOWER QUADRANT PAIN 01/22/2017 Ot 722.4 CERVICAL DISC DEGEN 01/22/2017 MAYELIN JACQUES MD Ot 455.6 HEMORRHOIDS NOS 01/22/2017 MAYELIN JACQUES MD Ot V72.84 EXAM PRE-OPERATIVE NOS 01/22/2017 MAYELIN JACQUES MD Ot 455.8 HEMRRHOID NOS W COMP NEC 01/22/2017 MAYELIN JACQUES MD Ot V72.84 EXAM PRE-OPERATIVE NOS 01/22/2017 BERNADETTE CUNHA MD V Ot R94.4 ABNORMAL RESULTS OF KIDNEY FUNCTION STUD 01/22/2017 FLORENCIA HINOJOSA Ot R10.32 LEFT LOWER QUADRANT PAIN 01/22/2017 FLORENCIA HINOJOSA SLOT KEY PERSON Ot M54.17 RADICULOPATHY, LUMBOSACRAL REGION 01/22/2017 FLORENCIA HINOJOSA SLOT KEY PERSON Ot R10.2 PELVIC AND PERINEAL PAIN 01/23/2017 FLORENCIA HINOJOSA SLOT KEY PERSON Ot M54.17 RADICULOPATHY, LUMBOSACRAL REGION 01/23/2017 FLORENCIA HINOJOSA SLOT KEY PERSON Ot R10.2 PELVIC AND PERINEAL PAIN 01/23/2017 FLORENCIA HINOJOSA SLOT KEY PERSON Ot M54.17 RADICULOPATHY, LUMBOSACRAL REGION 01/23/2017 FLORENCIA HINOJOSA SLOT KEY PERSON Ot R10.2 PELVIC AND PERINEAL PAIN 02/13/2017 FLORENCIA HINOJOSA SLOT KEY PERSON Ot M54.17 RADICULOPATHY, LUMBOSACRAL REGION 02/13/2017 FLORENCIA HINOJOSA SLOT KEY PERSON Ot R10.2 PELVIC AND PERINEAL PAIN 03/03/2017 GEORGIE GRULLON, MAYELIN Kaur Ot K62.5 HEMORRHAGE OF ANUS AND RECTUM 03/03/2017 GEORGIE GRULLON, MAYELIN Kaur Ot Z01.818 ENCOUNTER FOR OTHER PREPROCEDURAL EXAMIN 03/03/2017 GEORGIE GRULLON, MAYELIN Kaur Ot Z83.71 FAMILY HISTORY OF COLONIC POLYPS 03/06/2017 Ot 722.4 CERVICAL DISC DEGEN 03/06/2017 GEORGIE GRULLON, MAYELIN Kaur Ot 455.6 HEMORRHOIDS NOS 03/06/2017 GEORGIE GRULLON, MAYELIN Kaur Ot V72.84 EXAM PRE-OPERATIVE NOS 03/06/2017 GEORGIE GRULLON, MAYELIN Kaur Ot 455.8 HEMRRHOID NOS W COMP NEC 03/06/2017 GEORGIE GRULLON, MAYELIN Kaur Ot V72.84 EXAM PRE-OPERATIVE NOS 03/06/2017 GUERLINE GRULLON, BERNADETTE Hoover Ot R94.4 ABNORMAL RESULTS OF KIDNEY FUNCTION STUD 03/06/2017 FLORENCIA HINOJOSA SLOT KEY PERSON Ot R10.32 LEFT LOWER QUADRANT PAIN 03/06/2017 FLORENCIA HINOJOSA SLOT KEY PERSON Ot M54.17 RADICULOPATHY, LUMBOSACRAL REGION 03/06/2017 FLORENCIA HINOJOSA SLOT KEY PERSON Ot R10.2 PELVIC AND PERINEAL PAIN 03/06/2017 GEORGIE GRULLON, MAYELIN Kaur Ot K62.5 HEMORRHAGE OF ANUS AND RECTUM 03/06/2017 GEORGIE GRULLON, MAYELIN Kaur Ot K64.2 THIRD DEGREE HEMORRHOIDS 03/06/2017 MAYELIN JACQUES MD Ot Z83.71 FAMILY HISTORY OF COLONIC POLYPS 03/10/2017 MAYELIN JACQUES MD Ot K62.5 HEMORRHAGE OF ANUS AND RECTUM 03/10/2017 MAYELIN JACQUES MD Ot K64.2 THIRD DEGREE HEMORRHOIDS 03/10/2017 MAYELIN JACQUES MD M Ot Z83.71 FAMILY HISTORY OF COLONIC POLYPS 03/11/2017 MAYELIN JACQUES MD Ot K62.5 HEMORRHAGE OF ANUS AND RECTUM 03/11/2017 MAYELIN JACQUES MD Ot K64.2 THIRD DEGREE HEMORRHOIDS 03/11/2017 MAYELIN JACQUES MD M Ot Z83.71 FAMILY HISTORY OF COLONIC POLYPS 03/11/2017 MAYELIN JACQUES MD Ot K62.5 HEMORRHAGE OF ANUS AND RECTUM 03/11/2017 MAYELIN JACQUES MD Ot K64.2 THIRD DEGREE HEMORRHOIDS 03/11/2017 MAYELIN JACQUES MD Ot Z83.71 FAMILY HISTORY OF COLONIC POLYPS 03/24/2017 MAYELIN JACQUES MD Ot K62.5 HEMORRHAGE OF ANUS AND RECTUM 03/24/2017 MAYELIN JACQUES MD Ot K64.2 THIRD DEGREE HEMORRHOIDS 03/24/2017 MAYELIN JACQUES MD M Ot Z83.71 FAMILY HISTORY OF COLONIC POLYPS [...] K62.5 HEMORRHAGE OF ANUS AND RECTUM 04/25/2017 GEORGIE GRULLON, MAYELIN Kaur Ot K64.2 THIRD DEGREE HEMORRHOIDS 04/25/2017 GEORGIE GRULLON, MAYELIN Kaur Ot Z83.71 FAMILY HISTORY OF COLONIC POLYPS 04/27/2017 GEORGIE GRULLON, MAYELIN Kaur Ot K21.9 GASTRO-ESOPHAGEAL REFLUX DISEASE WITHOUT 04/27/2017 MAYELIN JACQUES MD Ot K25.9 GASTRIC ULCER, UNSP ACUTE OR CHRONIC, 04/27/2017 MAYELIN JACQUES MD Ot K44.9 DIAPHRAGMATIC HERNIA WITHOUT OBSTRUCTION 09/25/2017 Ot 722.4 CERVICAL DISC DEGEN 09/25/2017 MAYELIN JACQUES MD Ot 455.6 HEMORRHOIDS NOS 09/25/2017 GEORGIE GRULLON, MAYELIN Kaur Ot V72.84 EXAM PRE-OPERATIVE NOS 09/25/2017 MAYELIN JACQUES MD Ot 455.8 HEMRRHOID NOS W COMP NEC 09/25/2017 MAYELIN JACQUES MD Ot V72.84 EXAM PRE-OPERATIVE NOS 09/25/2017 GUERLINE GRULLON, BERNADETTE Hoover Ot R94.4 ABNORMAL RESULTS OF KIDNEY FUNCTION STUD 09/25/2017 FLORENCIA HINOJOSA SLOT KEY PERSON Ot R10.32 LEFT LOWER QUADRANT PAIN 09/25/2017 FLORENCIA HINOJOSAP Ot M54.17 RADICULOPATHY, LUMBOSACRAL REGION 09/25/2017 FLORENCIA HINOJOSA SLOT KEY PERSON Ot R10.2 PELVIC AND PERINEAL PAIN 11/06/2017 MYCHAL GARCIA SLOT KEY PERSON Ot M17.12 UNILATERAL PRIMARY OSTEOARTHRITIS, LEFT 11/06/2017 MYCHAL GARCIAP Ot M85.869 OT DISRD OF BONE DENSITY AND STRUCTURE, 11/19/2017 FLORENCIA HINOJOSA SLOT KEY PERSON Ot 478.19 OTHER DISEASE OF NASAL CAVITY AND SINUSE 11/19/2017 FLORENCIA HINOJOSA SLOT KEY PERSON Ot 780.93 MEMORY LOSS 11/19/2017 MYCHAL GARCIA SLOT KEY PERSON Ot M17.12 UNILATERAL PRIMARY OSTEOARTHRITIS, LEFT 11/19/2017 MYCHAL GARCIAP Ot M85.869 OT DISRD OF BONE DENSITY AND STRUCTURE, 11/19/2017 FLORENCIA HINOJOSA SLOT KEY PERSON Ot 478.19 OTHER DISEASE OF NASAL CAVITY AND SINUSE 11/19/2017 FLORENCIA HINOJOSA SLOT KEY PERSON Ot 780.93 MEMORY LOSS 11/19/2017 GARCIAMYCHAL Gonsalves SLOT KEY PERSON Ot M17.12 UNILATERAL PRIMARY OSTEOARTHRITIS, LEFT 11/19/2017 GARCIAMYCHAL Gonsalves Sunitha SLOT KEY PERSON Ot M85.869 OT DISRD OF BONE DENSITY AND STRUCTURE, 12/10/2017 MYCHAL GARCIA SLOT KEY PERSON Ot M17.12 UNILATERAL PRIMARY OSTEOARTHRITIS, LEFT 12/10/2017 MYCHAL GARCIA Sunitha SLOT KEY PERSON Ot M85.869 OTH DISRD OF BONE DENSITY AND STRUCTURE, 12/21/2017 MYCHAL GARCIA Sunitha SLOT KEY PERSON Ot M17.12 UNILATERAL PRIMARY OSTEOARTHRITIS, LEFT 12/21/2017 MYCHAL GARCIA Sunitha SLOT KEY PERSON Ot M85.869 OTH DISRD OF BONE DENSITY AND STRUCTURE, 03/23/2018 LATASHA GRULLON, LONNIE Dutton Ot F41.9 ANXIETY DISORDER, UNSPECIFIED 03/23/2018 LONNIE PAGAN MD Ot J45.909 UNSPECIFIED ASTHMA, UNCOMPLICATED 03/23/2018 LONNIE PAGAN MD Ot R10.30 LOWER ABDOMINAL PAIN, UNSPECIFIED 03/23/2018 LONNIE PAGAN MD Ot R11.2 NAUSEA WITH VOMITING, UNSPECIFIED 03/23/2018 LONNIE PAGAN MD Ot R30.0 DYSURIA 03/23/2018 LONNIE PAGAN MD, Ot Z21 ASYMPTOMATIC HUMAN IMMUNODEFICIENCY VIRU 03/23/2018 LONNIE PAGAN MD, Ot Z87.19 PERSONAL HISTORY OF OTHER DISEASES OF TH 03/23/2018 LONNIE PAGAN MD, Ot Z87.442 PERSONAL HISTORY OF URINARY CALCULI 03/23/2018 LONNIE PAGAN MD, Ot Z87.59 PERSONAL HISTORY OF COMP OF PREG, CHLDBR 03/23/2018 LONNIE PAGAN MD, Ot Z87.891 PERSONAL HISTORY OF NICOTINE DEPENDENCE 03/23/2018 LONNIE PAGAN MD, Ot Z88.0 ALLERGY STATUS TO PENICILLIN 03/23/2018 LONNIE PAGAN MD, Ot Z88.5 ALLERGY STATUS TO NARCOTIC AGENT STATUS 03/23/2018 LONNIE PAGAN MD, Ot Z88.8 ALLERGY STATUS TO OTH DRUG/MEDS/BIOL SUB 03/23/2018 LONNIE PAGAN MD Ot Z90.89 ACQUIRED ABSENCE OF OTHER ORGANS 03/23/2018 LONNIE PAGAN MD Ot Z97.5 PRESENCE OF (INTRAUTERINE) CONTRACEPTIVE 03/23/2018 LONNIE PAGAN MD Ot Z98.1 ARTHRODESIS STATUS 03/23/2018 GEORGIE GRULLON, MAYELIN Natasha Ot V72.84 EXAM PRE-OPERATIVE NOS 03/23/2018 Ot 722.4 CERVICAL DISC DEGEN 03/25/2018 LONNIE PAGAN MD, Ot F41.9 ANXIETY DISORDER, UNSPECIFIED 03/25/2018 LONNIE PAGAN MD, Ot J45.909 UNSPECIFIED ASTHMA, UNCOMPLICATED 03/25/2018 LONNIE PAGAN MD Ot R10.30 LOWER ABDOMINAL PAIN, UNSPECIFIED 03/25/2018 LONNIE PAGAN MD Ot R11.2 NAUSEA WITH VOMITING, UNSPECIFIED 03/25/2018 LONNIE PAGAN MD Ot R30.0 DYSURIA 03/25/2018 LONNIE PAGAN MD, Ot Z21 ASYMPTOMATIC HUMAN IMMUNODEFICIENCY VIRU 03/25/2018 LONNIE PAGAN MD, Ot Z87.19 PERSONAL HISTORY OF OTHER DISEASES OF TH 03/25/2018 LONNIE PAGAN MD Ot Z87.442 PERSONAL HISTORY OF URINARY CALCULI 03/25/2018 LONNIE PAGAN MD Ot Z87.59 PERSONAL HISTORY OF COMP OF PREG, CHLDBR 03/25/2018 LONNIE PAGAN MD Ot Z87.891 PERSONAL HISTORY OF NICOTINE DEPENDENCE 03/25/2018 LONNIE PAGAN MD Ot Z88.0 ALLERGY STATUS TO PENICILLIN 03/25/2018 LONNIE PAGAN MD, Ot Z88.5 ALLERGY STATUS TO NARCOTIC AGENT STATUS 03/25/2018 LONNIE PAGAN MD, Ot Z88.8 ALLERGY STATUS TO OTH DRUG/MEDS/BIOL SUB 03/25/2018 LONNIE PAGAN MD Ot Z90.89 ACQUIRED ABSENCE OF OTHER ORGANS 03/25/2018 LONNIE PAGAN MD Ot Z97.5 PRESENCE OF (INTRAUTERINE) CONTRACEPTIVE 03/25/2018 LONNIE PAGAN MD Ot Z98.1 ARTHRODESIS STATUS 03/30/2018 GEORGIE GRULLON, MAYELIN M Ot V72.84 EXAM PRE-OPERATIVE NOS 03/30/2018 Ot 722.4 CERVICAL DISC DEGEN 03/31/2018 LONNIE PAGAN MD, Ot F41.9 ANXIETY DISORDER, UNSPECIFIED 03/31/2018 LONNIE PAGAN MD, Ot J45.909 UNSPECIFIED ASTHMA, UNCOMPLICATED 03/31/2018 LONNIE PAGAN MD Ot R10.30 LOWER ABDOMINAL PAIN, UNSPECIFIED 03/31/2018 LONNIE PAGAN MD, Ot R11.2 NAUSEA WITH VOMITING, UNSPECIFIED 03/31/2018 LONNIE PAGAN MD Ot R30.0 DYSURIA 03/31/2018 LONNIE PAGAN MD, Ot 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 ASYMPTOMATIC HUMAN IMMUNODEFICIENCY VIRU 03/31/2018 LONNIE PAGAN MD, Ot Z87.19 PERSONAL HISTORY OF OTHER DISEASES OF TH 03/31/2018 LONNIE PAGAN MD, Ot Z87.442 PERSONAL HISTORY OF URINARY CALCULI 03/31/2018 LONNIE PAGAN MD, Ot Z87.59 PERSONAL HISTORY OF COMP OF PREG, CHLDBR 03/31/2018 LONNIE PAGAN MD, Ot Z87.891 PERSONAL HISTORY OF NICOTINE DEPENDENCE 03/31/2018 LONNIE PAGAN MD Ot Z88.0 ALLERGY STATUS TO PENICILLIN 03/31/2018 LONNIE PAGAN MD Ot Z88.5 ALLERGY STATUS TO NARCOTIC AGENT STATUS 03/31/2018 LONNIE PAGAN MD Ot Z88.8 ALLERGY STATUS TO OTH DRUG/MEDS/BIOL SUB 03/31/2018 LONNIE PAGAN MD, Ot Z90.89 ACQUIRED ABSENCE OF OTHER ORGANS 03/31/2018 LONNIE PAGAN MD, Ot Z97.5 PRESENCE OF (INTRAUTERINE) CONTRACEPTIVE 03/31/2018 LONNIE PAGAN MD Ot Z98.1 ARTHRODESIS STATUS 06/07/2018 FLORENCIA HINOJOSA Ot E34.8 OTHER SPECIFIED ENDOCRINE DISORDERS 06/07/2018 FLORENCIA HINOJOSA Ot Z53.8 PROCEDURE AND TREATMENT NOT CARRIED OUT 06/09/2018 GARCIA DO, TABATHA C Ot N39.3 STRESS INCONTINENCE (FEMALE) (MALE) 06/09/2018 GARCIA DO, TABATHA C Ot N80.9 ENDOMETRIOSIS, UNSPECIFIED 06/09/2018 GARCIA DO, TABATHA C Ot N81.9 FEMALE GENITAL PROLAPSE, UNSPECIFIED 06/09/2018 GARCIA DO, TABATHA C Ot N83.201 UNSPECIFIED OVARIAN CYST, RIGHT SIDE 06/09/2018 GARCIA DO, TABATHA C Ot R31.9 HEMATURIA, UNSPECIFIED 06/09/2018 GARCIA DO, TABATHA C Ot Z01.812 ENCOUNTER FOR PREPROCEDURAL LABORATORY E 06/09/2018 GARCIA DO TABATHA C Ot Z11.2 ENCOUNTER FOR SCREENING FOR OTHER BACTER 06/10/2018 GEORGIE GRULLON, MAYELIN Kaur Ot V72.84 EXAM PRE-OPERATIVE NOS 06/10/2018 Ot 722.4 CERVICAL DISC DEGEN 06/10/2018 GARCIA DO TABATHA C Ot N39.3 STRESS INCONTINENCE (FEMALE) (MALE) 06/10/2018 GARCIA DO, TABATHA C Ot N80.9 ENDOMETRIOSIS, UNSPECIFIED 06/10/2018 GARCIA DO, TABATHA C Ot N81.9 FEMALE GENITAL PROLAPSE, UNSPECIFIED 06/10/2018 GARCIA DO, TABATHA C Ot N83.201 UNSPECIFIED OVARIAN CYST, RIGHT SIDE 06/10/2018 GARCIA DO, TABATHA C Ot R31.9 HEMATURIA, UNSPECIFIED 06/10/2018 GARCIA DO, TABATHA C Ot Z01.812 ENCOUNTER FOR PREPROCEDURAL LABORATORY E 06/10/2018 GARCIA DO, TABATHA C Ot Z11.2 ENCOUNTER FOR SCREENING FOR OTHER BACTER 06/23/2018 GARCIA DO, TABATHA C Ot F17.210 NICOTINE DEPENDENCE, CIGARETTES, UNCOMPL 06/23/2018 GARCIA DO, TABATHA C Ot J45.909 UNSPECIFIED ASTHMA, UNCOMPLICATED 06/23/2018 GARCIA DO, TABATHA C Ot L72.0 EPIDERMAL CYST 06/23/2018 GARCIA DO, TABATHA C Ot N18.3 CHRONIC KIDNEY DISEASE, STAGE 3 (MODERAT 06/23/2018 GARCIA DO, TABATHA C Ot N39.3 STRESS INCONTINENCE (FEMALE) (MALE) 06/23/2018 TABATHA GARCIA DO Ot N80.0 ENDOMETRIOSIS OF UTERUS 06/23/2018 TABATHA GARCIA DO Ot N81.5 VAGINAL ENTEROCELE 06/23/2018 TABATHA GARCIA DO Ot N83.12 CORPUS LUTEUM CYST OF LEFT OVARY 06/23/2018 TABATHA GARCIA DO Ot N83.201 UNSPECIFIED OVARIAN CYST, RIGHT SIDE 06/23/2018 TABATHA GARCIA DO Ot N83.8 OTH NONINFLAMMATORY DISORD OF OVARY, FAL 06/23/2018 TABATHA GARCIA DO Ot N92.1 EXCESSIVE AND FREQUENT MENSTRUATION WITH 06/23/2018 TABATHA GARCIA DO Ot N94.6 DYSMENORRHEA, UNSPECIFIED 06/28/2018 Ot D64.9 ANEMIA, UNSPECIFIED 06/28/2018 Ot F32.9 MAJOR DEPRESSIVE DISORDER, SINGLE EPISOD 06/28/2018 Ot F41.9 ANXIETY DISORDER, UNSPECIFIED 06/28/2018 Ot G89.18 OTHER ACUTE POSTPROCEDURAL PAIN 06/28/2018 Ot J45.909 UNSPECIFIED ASTHMA, UNCOMPLICATED 06/28/2018 Ot K21.9 GASTRO- ESOPHAGEAL REFLUX DISEASE WITHOUT 06/28/2018 Ot N18.3 CHRONIC KIDNEY DISEASE, STAGE 3 (MODERAT 06/28/2018 Ot R10.84 GENERALIZED ABDOMINAL PAIN 06/28/2018 Ot Z87.19 PERSONAL HISTORY OF OTHER DISEASES OF TH 06/28/2018 Ot Z87.891 PERSONAL HISTORY OF NICOTINE DEPENDENCE 06/28/2018 Ot Z88.2 ALLERGY STATUS TO SULFONAMIDES STATUS 06/28/2018 Ot Z88.5 ALLERGY STATUS TO NARCOTIC AGENT STATUS 06/28/2018 Ot Z88.8 ALLERGY STATUS TO OTH DRUG/MEDS/BIOL SUB 06/28/2018 Ot Z90.710 ACQUIRED ABSENCE OF BOTH CERVIX AND UTER 06/28/2018 Ot Z90.89 ACQUIRED ABSENCE OF OTHER ORGANS 06/28/2018 Ot Z96.0 PRESENCE OF UROGENITAL IMPLANTS 06/28/2018 Ot Z97.5 PRESENCE OF ( INTRAUTERINE) CONTRACEPTIVE 07/24/2018 TABATHA GARCIA DO Ot F17.210 NICOTINE DEPENDENCE, CIGARETTES, UNCOMPL 07/24/2018 TABATHA GARCIA DO Ot J45.909 UNSPECIFIED ASTHMA, UNCOMPLICATED 07/24/2018 GARCIA DO, TABATHA C Ot L72.0 EPIDERMAL CYST 07/24/2018 GARCIA DO, TABATHA C Ot N18.3 CHRONIC KIDNEY DISEASE, STAGE 3 (MODERAT 07/24/2018 GARCIA DO, TABATHA C Ot N39.3 STRESS INCONTINENCE (FEMALE) (MALE) 07/24/2018 GARCIA DO, TABATHA C Ot N80.0 ENDOMETRIOSIS OF UTERUS 07/24/2018 GARCIA DO, TABATHA C Ot N81.5 VAGINAL ENTEROCELE 07/24/2018 GARCIA DO TABATHA C Ot N83.12 CORPUS LUTEUM CYST OF LEFT OVARY 07/24/2018 GARCIA DO, TABATHA C Ot N83.201 UNSPECIFIED OVARIAN CYST, RIGHT SIDE 07/24/2018 GARCIA DO, TABATHA C Ot N83.8 OTH NONINFLAMMATORY DISORD OF OVARY, FAL 07/24/2018 GARCIA DO TABATHA C Ot N92.1 EXCESSIVE AND FREQUENT MENSTRUATION WITH 07/24/2018 GARCIA DO, TABATHA C Ot N94.6 DYSMENORRHEA, UNSPECIFIED 07/28/2018 FLORENCIA HINOJOSA SLOT KEY PERSON Ot E34.8 OTHER SPECIFIED ENDOCRINE DISORDERS 07/28/2018 FLORENCIA HINOJOSA SLOT KEY PERSON Ot G43.019 MIGRAINE W/O AURA, INTRACTABLE, WITHOUT 07/28/2018 FLORENCIA HINOJOSAP Ot R25.1 TREMOR, UNSPECIFIED 07/28/2018 FLORENCIA IHNOJOSA SLOT KEY PERSON Ot R41.3 OTHER AMNESIA 08/17/2018 GEORGIE GRULLON, MAYELIN Kaur Ot V72.84 EXAM PRE-OPERATIVE NOS 08/17/2018 Ot 722.4 CERVICAL DISC DEGEN 08/17/2018 FLORENCIA HINOJOSA SLOT KEY PERSON Ot E34.8 OTHER SPECIFIED ENDOCRINE DISORDERS 08/17/2018 FLORENCIA HINOJOSA SLOT KEY PERSON Ot G43.019 MIGRAINE W/O AURA, INTRACTABLE, WITHOUT 08/17/2018 FLORENCIA HINOJOSAP Ot R25.1 TREMOR, UNSPECIFIED 08/17/2018 FLORENCIA HINOJOSAP Ot R41.3 OTHER AMNESIA 08/21/2018 MYCHAL GARCIA Ot M17.12 UNILATERAL PRIMARY OSTEOARTHRITIS, LEFT 08/21/2018 MYCHAL GARCIA Ot M85.869 OTH DISRD OF BONE DENSITY AND STRUCTURE, 08/21/2018 FLORENCIA HINOJOSA SLOT KEY PERSON Ot E34.8 OTHER SPECIFIED ENDOCRINE DISORDERS 08/21/2018 FLORENCIA HINOJOSA Ot Z53.8 PROCEDURE AND TREATMENT NOT CARRIED OUT Procedures Code Description [place] [address] ROUTINE VENIPUNCTURE 09/12/2013 4230698 GFR CALC (RESULT ONLY) 09/12/2013 10627 CMP 09/12/2013 64997 CBC 09/12/2013 03544 CELIAC DISEASE ANALYZER 09/12/2013 85080 TSH 09/12/2013 MAYELIN ALEJO 09/12/2013 45409 PSYCH DIAGNOSTIC EVALUATION 02/08/2014 15690 PSYCHO TESTING 1 HR W TECH 02/13/2014 88054 PSYTX PT&/FAMILY 45 MINUTES 03/02/2014 79432 PSYCHO TESTING 1 HR W COMP 03/07/[address] HEAD/BRAIN W/O & W/DYE 03/14/2014 09074 MRI BRAIN W/O & W/DYE 03/14/2014 22837 PSYCHO TESTING 1 HR W TECH 03/14/2014 37368 PSYTX PT&/FAMILY 45 MINUTES 03/27/2014 83511 A1C (IN-HOUSE) 04/26/2014 98294 ROUTINE VENIPUNCTURE 04/27/20141830037 GFR CALC (RESULT ONLY) 04/27/2014 18280 CMP 04/27/2014 15624 CBC 04/27/2014 00935 VITAMIN D 25-HYDROXY (D2,D3 , TOTAL) 04/27/2014 92838 TSH 04/27/2014 93181 PSYTX PT&/FAMILY 45 MINUTES 05/09/2014 38841 UA W/ CULTURE IF INDICATED 05/10/2014 76847 URINE DRUG SCREEN (IN-HOUSE ) 05/10/2014 58812 TEST, URINE (IN- HOUSE) 05/29/2014 76188 PSYTX PT&/FAMILY 45 MINUTES 06/14/2014 79599 PSYTX PT&/FAMILY 45 MINUTES 07/05/2014 60072 ROUTINE VENIPUNCTURE 12/06/2014 38414 RENAL PROFILE 12/06/2014 56347 UA W/ CULTURE IF INDICATED 12/06/2014 22321 URINE CREATININE (RANDOM) 12/06/2014 46315 URINE PROTEIN 12/06/2014 06561 CBC 12/06/2014 Results Test Result Range Prothrombin [...] [id number] Urinalysis, Complete - 06/19/17 09:16 Specific [place] 1.024 1.005-1.030 pH 6.0 5.0-7.5 Urine-Color Yellow [...] 12/11/17 14:08 T3, FREE 2.6 pg/mL 2.3-4.2 Complete urinalysis with reflex to culture - 03/23/18 12:29 Urine color determination YELLOW NRG Urine clarity determination CLEAR NRG Urine pH measurement by test strip 5 5-9 Specific gravity of urine by test strip 1.020 1.016- 1.022 Urine protein assay by test strip, semi-quantitative 1+ NEGATIVE Urine glucose detection by automated test strip NEGATIVE NEGATIVE Erythrocytes detection in urine sediment by light microscopy NEGATIVE NEGATIVE Urine ketones detection by automated test strip NEGATIVE NEGATIVE Urine nitrite detection by test strip NEGATIVE NEGATIVE Urine total bilirubin detection by test strip NEGATIVE NEGATIVE Urine urobilinogen measurement by automated test strip (mass/volume) NORMAL NORMAL Urine leukocyte esterase detection by dipstick 1+ NEGATIVE Automated urine sediment erythrocyte count by microscopy (number/high power field) NONE NRG Automated urine sediment leukocyte count by microscopy (number/high power field ) [HPF] NRG Bacteria detection in urine sediment by light microscopy TRACE NRG Squamous epithelial cells detection in urine sediment by light microscopy 0-2 NRG Crystals detection in urine sediment by light microscopy NONE NRG Casts detection in urine sediment by light microscopy NONE NRG Mucus detection in urine sediment by light microscopy SMALL NRG Complete urinalysis with reflex to culture NO NRG Urine drug screening test - 03/23/18 12:29 Urine phencyclidine detection by screening method NEGATIVE NEGATIVE Urine benzodiazepines detection by screening method NEGATIVE NEGATIVE Urine cocaine detection NEGATIVE NEGATIVE Urine amphetamines detection by screening method POSITIVE NEGATIVE Urine methamphetamine detection by screening method NEGATIVE NEGATIVE Urine cannabinoids detection by screening method NEGATIVE NEGATIVE Urine opiates detection by screening method NEGATIVE NEGATIVE Urine barbiturates detection NEGATIVE NEGATIVE Screening urine tricyclic antidepressants detection NEGATIVE NEGATIVE Urine methadone detection by screening method NEGATIVE NEGATIVE Urine oxycodone detection POSITIVE NEGATIVE Urine propoxyphene detection NEGATIVE NEGATIVE Serum or plasma choriogonadotropin ( test) detection - 03/23/18 12:45 Serum or plasma choriogonadotropin ( test) detection NEGATIVE NEGATIVE Comprehensive metabolic panel - 03/23/18 12:45 Serum or plasma sodium measurement (moles/volume) 137 mmol/L 135-145 Serum or plasma potassium measurement (moles/volume) 3.3 mmol/L 3.6-5.0 Serum or plasma chloride measurement (moles/volume) 105 mmol/L 98-107 Carbon dioxide 22 mmol/L 21-32 Serum or plasma anion gap determination (moles/volume) 10 mmol/L 5-14 Serum or plasma urea nitrogen measurement (mass/volume) 10 mg/dL 7-18 Serum or plasma creatinine measurement (mass/volume) 1.10 mg/dL 0.60-1.30 Serum or plasma urea nitrogen/creatinine mass ratio 9 NRG Serum or plasma creatinine measurement with calculation of estimated glomerular filtration rate 56 NRG Serum or plasma glucose measurement (mass/volume) 99 mg/dL 70-105 Serum or plasma calcium measurement (mass/volume) 8.5 mg/dL 8.5-10.1 Serum or plasma total bilirubin measurement (mass/volume) 1.1 mg/dL 0.1-1.0 Serum or plasma alkaline phosphatase measurement (enzymatic activity/volume) 37 U/L 40-136 Serum or plasma aspartate aminotransferase measurement (enzymatic activity/ volume) 12 U/L 5-34 Serum or plasma alanine aminotransferase measurement (enzymatic activity/volume ) 6 U/L 0-55 Serum or plasma protein measurement (mass/volume) 6.7 g/dL 6.4-8.2 Serum or plasma albumin measurement (mass/volume) 3.9 g/dL 3.2-4.5 Lipase - 03/23/18 12:45 Lipase 28 U/L 8-78 Complete blood count (CBC) with automated white blood cell (WBC) differential - 03/23/18 12:45 Blood leukocytes automated count (number/volume) 11.6 10*3/uL 4.3-11.0 Blood erythrocytes automated count (number/volume) 3.64 10*6/uL 4.35-5.85 Venous blood hemoglobin measurement (mass/volume) 11.6 g/dL 11.5-16.0 Blood hematocrit (volume fraction) 34 % 35-52 Automated erythrocyte mean corpuscular volume 92 [foz_us] 80-99 Automated erythrocyte mean corpuscular hemoglobin (mass per erythrocyte) 32 pg 25-34 Automated erythrocyte mean corpuscular hemoglobin concentration measurement ( mass/volume) 35 g/dL 32-36 Automated erythrocyte distribution width ratio 11.4 % 10.0-14.5 Automated blood platelet count (count/volume) 213 10*3/uL 130-400 Automated blood platelet mean volume measurement 11.6 [foz_us] 7.4-10.4 Automated blood neutrophils/100 leukocytes 74 % 42-75 Automated blood lymphocytes/100 leukocytes 18 % 12-44 Blood monocytes/100 leukocytes 6 % 0-12 Automated blood eosinophils/100 leukocytes 1 % 0-10 Automated blood basophils/100 leukocytes 0 % 0-10 Blood neutrophils automated count (number/volume) 8.6 10*3 1.8-7.8 Blood lymphocytes automated count (number/volume) 2.1 10*3 1.0-4.0 Blood monocytes automated count (number/volume) 0.7 10*3 0.0-1.0 Automated eosinophil count 0.1 10*3/uL 0.0-0.3 Automated blood basophil count (count/volume) 0.0 10*3/uL 0.0-0.1 [facility] - 04/26/18 10:42 GLUCOSE 96 mg/dL 65-99 UREA NITROGEN (BUN) 12 mg/dL 7-25 CREATININE 1.20 mg/dL 0.50-1.10 eGFR NON-AFR. [place] 57 mL/min/1.73m2 > OR=60 eGFR 66 mL/min/1.73m2 > OR=60 BUN/CREATININE RATIO 10 (calc) 6-22 SODIUM 137 mmol/L 135-146 POTASSIUM 3.6 mmol/L 3.5-5.3 CHLORIDE 102 mmol/L 98-110 CARBON DIOXIDE 24 mmol/L 20-31 CALCIUM 9.0 mg/dL 8.6-10.2 PROTEIN, TOTAL 7.6 g/dL 6.1-8.1 ALBUMIN 4.5 g/dL 3.6-5.1 GLOBULIN 3.1 g/dL (calc) 1.9-3.7 ALBUMIN/GLOBULIN RATIO 1.5 (calc) 1.0-2.5 BILIRUBIN, TOTAL 0.9 mg/dL 0.2-1.2 ALKALINE PHOSPHATASE 48 U/L 33-115 AST 14 U/L 10-30 ALT 9 U/L 6-29 Methicillin resistant Staphylococcus aureus (MRSA) screening culture - 08:24 Methicillin resistant Staphylococcus aureus (MRSA) screening culture NEG NRG Complete blood count (CBC) with automated white blood cell (WBC) differential - 06/09/18 08:25 Blood leukocytes automated count (number/volume) 5.1 10*3/uL 4.3-11.0 Blood erythrocytes automated count (number/volume) 4.14 10*6/uL 4.35-5.85 Venous blood hemoglobin measurement (mass/volume) 13.1 g/dL 11.5-16.0 Blood hematocrit (volume fraction) 38 % 35-52 Automated erythrocyte mean corpuscular volume 92 [foz_us] 80-99 Automated erythrocyte mean corpuscular hemoglobin (mass per erythrocyte) 32 pg 25-34 Automated erythrocyte mean corpuscular hemoglobin concentration measurement ( mass/volume) 35 g/dL 32-36 Automated erythrocyte distribution width ratio 12.2 % 10.0-14.5 Automated blood platelet count (count/volume) 197 10*3/uL 130-400 Automated blood platelet mean volume measurement 11.4 [foz_us] 7.4-10.4 Automated blood neutrophils/100 leukocytes 66 % 42-75 Automated blood lymphocytes/100 leukocytes 24 % 12-44 Blood monocytes/100 leukocytes 7 % 0-12 Automated blood eosinophils/100 leukocytes 3 % 0-10 Automated blood basophils/100 leukocytes 0 % 0-10 Blood neutrophils automated count (number/volume) 3.4 10*3 1.8-7.8 Blood lymphocytes automated count (number/volume) 1.3 10*3 1.0-4.0 Blood monocytes automated count (number/volume) 0.4 10*3 0.0-1.0 Automated eosinophil count 0.1 10*3/uL 0.0-0.3 Automated blood basophil count (count/volume) 0.0 10*3/uL 0.0-0.1 Comprehensive metabolic panel - 06/09/18 08:25 Serum or plasma sodium measurement (moles/volume) 137 mmol/L 135-145 Serum or plasma potassium measurement (moles/volume) 4.3 mmol/L 3.6-5.0 Serum or plasma chloride measurement (moles/volume) 106 mmol/L 98-107 Carbon dioxide 26 mmol/L 21-32 Serum or plasma anion gap determination (moles/volume) 5 mmol/L 5-14 Serum or plasma urea nitrogen measurement (mass/volume) 10 mg/dL 7-18 Serum or plasma creatinine measurement (mass/volume) 1.14 mg/dL 0.60-1.30 Serum or plasma urea nitrogen/creatinine mass ratio 9 NRG Serum or plasma creatinine measurement with calculation of estimated glomerular filtration rate 53 NRG Serum or plasma glucose measurement (mass/volume) 98 mg/dL 70-105 Serum or plasma calcium measurement (mass/volume) 9.0 mg/dL 8.5-10.1 Serum or plasma total bilirubin measurement (mass/volume) 0.8 mg/dL 0.1-1.0 Serum or plasma alkaline phosphatase measurement (enzymatic activity/volume) 41 U/L 40-136 Serum or plasma aspartate aminotransferase measurement (enzymatic activity/ volume) 15 U/L 5-34 Serum or plasma alanine aminotransferase measurement (enzymatic activity/volume ) 8 U/L 0-55 Serum or plasma protein measurement (mass/volume) 7.2 g/dL 6.4-8.2 Serum or plasma albumin measurement (mass/volume) 4.2 g/dL 3.2-4.5 Blood type T Indirect antibody screen panel - 06/09/18 08:25 ABO+Rh group AP NRG Blood group antibody screen NEGATIVE NRG Complete urinalysis with reflex to culture - 06/09/18 08:28 Urine color determination YELLOW NRG Urine clarity determination CLEAR NRG Urine pH measurement by test strip 6 5-9 Specific gravity of urine by test strip 1.005 1.016- 1.022 Urine protein assay by test strip, semi-quantitative NEGATIVE NEGATIVE Urine glucose detection by automated test strip NEGATIVE NEGATIVE Erythrocytes detection in urine sediment by light microscopy NEGATIVE NEGATIVE Urine ketones detection by automated test strip NEGATIVE NEGATIVE Urine nitrite detection by test strip NEGATIVE NEGATIVE Urine total bilirubin detection by test strip NEGATIVE NEGATIVE Urine urobilinogen measurement by automated test strip (mass/volume) NORMAL NORMAL Urine leukocyte esterase detection by dipstick NEGATIVE NEGATIVE Automated urine sediment erythrocyte count by microscopy (number/high power field) RARE NRG Automated urine sediment leukocyte count by microscopy (number/high power field ) RARE NRG Bacteria detection in urine sediment by light microscopy NEGATIVE NRG Squamous epithelial cells detection in urine sediment by light microscopy 0-2 NRG Crystals detection in urine sediment by light microscopy NONE NRG Casts detection in urine sediment by light microscopy NONE NRG Mucus detection in urine sediment by light microscopy NEGATIVE NRG Complete urinalysis with reflex to culture NO NRG Renal epithelial cells detection in urine sediment by light microscopy NONE NRG Urine beta human chorionic gonadotropin (hCG) measurement - 06/22/18 06:15 Urine beta human chorionic gonadotropin (hCG) measurement NEGATIVE NEGATIVE Blood type T Indirect antibody screen panel - 06/22/18 06:19 ABO+Rh group AP NRG Transfusion band number [id number] NRG Blood group antibody screen NEGATIVE NRG Whole blood basic metabolic panel - 06/23/18 04:59 Serum or plasma sodium measurement (moles/volume) 138 mmol/L 135-145 Serum or plasma potassium measurement (moles/volume) 3.8 mmol/L 3.6-5.0 Serum or plasma chloride measurement (moles/volume) 108 mmol/L 98-107 Carbon dioxide 22 mmol/L 21-32 Serum or plasma anion gap determination (moles/volume) 8 mmol/L 5-14 Serum or plasma urea nitrogen measurement (mass/volume) 11 mg/dL 7-18 Serum or plasma creatinine measurement (mass/volume) 0.96 mg/dL 0.60-1.30 Serum or plasma urea nitrogen/creatinine mass ratio 11 NRG Serum or plasma creatinine measurement with calculation of estimated glomerular filtration rate > NRG Serum or plasma glucose measurement (mass/volume) 141 mg/dL 70-105 Serum or plasma calcium measurement (mass/volume) 8.0 mg/dL 8.5-10.1 Complete blood count (CBC) with automated white blood cell (WBC) differential - 06/28/18 15:06 Blood leukocytes automated count (number/volume) 8.2 10*3/uL 4.3-11.0 Blood erythrocytes automated count (number/volume) 4.16 10*6/uL 4.35-5.85 Venous blood hemoglobin measurement (mass/volume) 12.8 g/dL 11.5-16.0 Blood hematocrit (volume fraction) 38 % 35-52 Automated erythrocyte mean corpuscular volume 92 [foz_us] 80-99 Automated erythrocyte mean corpuscular hemoglobin (mass per erythrocyte) 31 pg 25-34 Automated erythrocyte mean corpuscular hemoglobin concentration measurement ( mass/volume) 34 g/dL 32-36 Automated erythrocyte distribution width ratio 12.0 % 10.0-14.5 Automated blood platelet count (count/volume) 259 10*3/uL 130-400 Automated blood platelet mean volume measurement 11.3 [foz_us] 7.4-10.4 Automated blood neutrophils/100 leukocytes 67 % 42-75 Automated blood lymphocytes/100 leukocytes 17 % 12-44 Blood monocytes/100 leukocytes 11 % 0-12 Automated blood eosinophils/100 leukocytes 4 % 0-10 Automated blood basophils/100 leukocytes 0 % 0-10 Blood neutrophils automated count (number/volume) 5.6 10*3 1.8-7.8 Blood lymphocytes automated count (number/volume) 1.4 10*3 1.0-4.0 Blood monocytes automated count (number/volume) 0.9 10*3 0.0-1.0 Automated eosinophil count 0.4 10*3/uL 0.0-0.3 Automated blood basophil count (count/volume) 0.0 10*3/uL 0.0-0.1 Comprehensive metabolic panel - 06/28/18 15:06 Serum or plasma sodium measurement (moles/volume) 139 mmol/L 135-145 Serum or plasma potassium measurement (moles/volume) 3.8 mmol/L 3.6-5.0 Serum or plasma chloride measurement (moles/volume) 105 mmol/L 98-107 Carbon dioxide 26 mmol/L 21-32 Serum or plasma anion gap determination (moles/volume) 8 mmol/L 5-14 Serum or plasma urea nitrogen measurement (mass/volume) 12 mg/dL 7-18 Serum or plasma creatinine measurement (mass/volume) 1.10 mg/dL 0.60-1.30 Serum or plasma urea nitrogen/creatinine mass ratio 11 NRG Serum or plasma creatinine measurement with calculation of estimated glomerular filtration rate 55 NRG Serum or plasma glucose measurement (mass/volume) 89 mg/dL 70-105 Serum or plasma calcium measurement (mass/volume) 9.1 mg/dL 8.5-10.1 Serum or plasma total bilirubin measurement (mass/volume) 0.9 mg/dL 0.1-1.0 Serum or plasma alkaline phosphatase measurement (enzymatic activity/volume) 51 U/L 40-136 Serum or plasma aspartate aminotransferase measurement (enzymatic activity/ volume) 18 U/L 5-34 Serum or plasma alanine aminotransferase measurement (enzymatic activity/volume ) 16 U/L 0-55 Serum or plasma protein measurement (mass/volume) 7.4 g/dL 6.4-8.2 Serum or plasma albumin measurement (mass/volume) 4.0 g/dL 3.2-4.5 Complete urinalysis with reflex to culture - 06/28/18 18:55 Urine color determination YELLOW NRG Urine clarity determination CLEAR NRG Urine pH measurement by test strip 5 5-9 Specific gravity of urine by test strip 1.020 1.016- 1.022 Urine protein assay by test strip, semi-quantitative 1+ NEGATIVE Urine glucose detection by automated test strip NEGATIVE NEGATIVE Erythrocytes detection in urine sediment by light microscopy 2+ NEGATIVE Urine ketones detection by automated test strip NEGATIVE NEGATIVE Urine nitrite detection by test strip NEGATIVE NEGATIVE Urine total bilirubin detection by test strip NEGATIVE NEGATIVE Urine urobilinogen measurement by automated test strip (mass/volume) 8 mg/dL NORMAL Urine leukocyte esterase detection by dipstick 3+ NEGATIVE Automated urine sediment erythrocyte count by microscopy (number/high power field) [HPF] NRG Automated urine sediment leukocyte count by microscopy (number/high power field ) [HPF] NRG Bacteria detection in urine sediment by light microscopy FEW NRG Squamous epithelial cells detection in urine sediment by light microscopy 10-25 NRG Crystals detection in urine sediment by light microscopy NONE NRG Casts detection in urine sediment by light microscopy NONE NRG Mucus detection in urine sediment by light microscopy SMALL NRG Complete urinalysis with reflex to culture YES NRG Urine Trichomonas species detection by light microscopy FEW NRG Bacterial urine culture - 06/28/18 18:55 Bacterial urine culture SEE COMMEN NRG COLONY COUNT . NRG PDM - 09 PANEL (PROFILE 1) - 09/30/18 15:05 Prescribed Drug 1 Diazepam NRG Creatinine 74.0 mg/dL > or=20.0 pH 5.97 4.5 - 9.0 Oxidant NEGATIVE mcg/mL <200 Amphetamines NEGATIVE CONFIRMED ng/mL <500 Benzodiazepines NEGATIVE ng/mL <100 medMATCH Benzodiazepines INCONSISTENT NRG Marijuana Metabolite NEGATIVE ng/mL <20 medMATCH Marijuana Metab CONSISTENT NRG Cocaine Metabolite NEGATIVE ng/mL <150 medMATCH Cocaine Metab CONSISTENT NRG Opiates NEGATIVE ng/mL <100 medMATCH Opiates CONSISTENT NRG Oxycodone NEGATIVE ng/mL <100 medMATCH Oxycodone INCONSISTENT NRG COMMENT NRG Amphetamine NEGATIVE ng/mL <250 medMATCH Amphetamine CONSISTENT NRG Methamphetamine NEGATIVE ng/mL <250 medMATCH Methamphetamine CONSISTENT NRG Prescribed Drug 2 Oxycodone NRG Barbiturates NEGATIVE ng/mL <300 medMATCH Barbiturates CONSISTENT NRG Methadone Metabolite NEGATIVE ng/mL <100 medMATCH Methadone Metab CONSISTENT NRG Phencyclidine NEGATIVE ng/mL <25 medMATCH Phencyclidine CONSISTENT NRG Complete blood count (CBC) with automated white blood cell (WBC) differential - 10/13/18 16:27 Blood leukocytes automated count (number/volume) 6.2 10*3/uL 4.3-11.0 Blood erythrocytes automated count (number/volume) 4.25 10*6/uL 4.35-5.85 Venous blood hemoglobin measurement (mass/volume) 13.1 g/dL 11.5-16.0 Blood hematocrit (volume fraction) 39 % 35-52 Automated erythrocyte mean corpuscular volume 92 [foz_us] 80-99 Automated erythrocyte mean corpuscular hemoglobin (mass per erythrocyte) 31 pg 25-34 Automated erythrocyte mean corpuscular hemoglobin concentration measurement ( mass/volume) 33 g/dL 32-36 Automated erythrocyte distribution width ratio 12.1 % 10.0-14.5 Automated blood platelet count (count/volume) 237 10*3/uL 130-400 Automated blood platelet mean volume measurement 10.8 [foz_us] 7.4-10.4 Automated blood neutrophils/100 leukocytes 58 % 42-75 Automated blood lymphocytes/100 leukocytes 32 % 12-44 Blood monocytes/100 leukocytes 6 % 0-12 Automated blood eosinophils/100 leukocytes 4 % 0-10 Automated blood basophils/100 leukocytes 1 % 0-10 Blood neutrophils automated count (number/volume) 3.6 10*3 1.8-7.8 Blood lymphocytes automated count (number/volume) 2.0 10*3 1.0-4.0 Blood monocytes automated count (number/volume) 0.4 10*3 0.0-1.0 Automated eosinophil count 0.3 10*3/uL 0.0-0.3 Automated blood basophil count (count/volume) 0.0 10*3/uL 0.0-0.1 Complete urinalysis with reflex to culture - 10/13/18 16:27 Urine color determination YELLOW NRG Urine clarity determination CLEAR NRG Urine pH measurement by test strip 6 5-9 Specific gravity of urine by test strip 1.020 1.016- 1.022 Urine protein assay by test strip, semi-quantitative NEGATIVE NEGATIVE Urine glucose detection by automated test strip NEGATIVE NEGATIVE Erythrocytes detection in urine sediment by light microscopy NEGATIVE NEGATIVE Urine ketones detection by automated test strip NEGATIVE NEGATIVE Urine nitrite detection by test strip NEGATIVE NEGATIVE Urine total bilirubin detection by test strip NEGATIVE NEGATIVE Urine urobilinogen measurement by automated test strip (mass/volume) NORMAL NORMAL Urine leukocyte esterase detection by dipstick NEGATIVE NEGATIVE Automated urine sediment erythrocyte count by microscopy (number/high power field) NONE NRG Automated urine sediment leukocyte count by microscopy (number/high power field ) NONE NRG Bacteria detection in urine sediment by light microscopy NONE NRG Squamous epithelial cells detection in urine sediment by light microscopy 2-5 NRG Crystals detection in urine sediment by light microscopy NONE NRG Casts detection in urine sediment by light microscopy NONE NRG Mucus detection in urine sediment by light microscopy NEGATIVE NRG Complete urinalysis with reflex to culture NO NRG Serum or plasma renal function panel (Na, K, Cl, CO2, BUN, Cr, glucose,Ca, phos , alb) - 10/13/18 16:27 Serum or plasma sodium measurement (moles/volume) 137 mmol/L 135-145 Serum or plasma potassium measurement (moles/volume) 3.8 mmol/L 3.6-5.0 Serum or plasma chloride measurement (moles/volume) 104 mmol/L 98-107 Carbon dioxide 23 mmol/L 21-32 Serum or plasma anion gap determination (moles/volume) 10 mmol/L 5-14 Serum or plasma urea nitrogen measurement (mass/volume) 11 mg/dL 7-18 Serum or plasma creatinine measurement (mass/volume) 1.17 mg/dL 0.60-1.30 Serum or plasma urea nitrogen/creatinine mass ratio 9 NRG Serum or plasma creatinine measurement with calculation of estimated glomerular filtration rate 51 NRG Serum or plasma glucose measurement (mass/volume) 91 mg/dL 70-105 Serum or plasma calcium measurement (mass/volume) 8.8 mg/dL 8.5-10.1 Serum or plasma albumin measurement (mass/volume) 4.3 g/dL 3.2-4.5 Serum or plasma phosphate measurement (mass/volume) 3.1 mg/dL 2.3-4.7 Urine protein/creatinine mass ratio - 10/13/18 16:27 Urine protein measurement (mass/volume) 9 mg/dL 6-12 Urine creatinine measurement (mass/volume) 122 mg/dL 30- 125 Urine protein/creatinine mass ratio 0.07 NRG Encounters ACCT No. Visit Date/Time Discharge Status Pt. Type Provider Facility Loc./Unit Complaint [id number] 02/12/2015 11:55:00 02/12/2015 23:59:59 [facility] Outpatient FLORENCIA HINOJOSA APRN [id number] 12/06/2014 16:11:00 12/06/2014 23:59:59 [facility] Outpatient FLORENCIA HINJOOSA APRN [id number] 12/04/2014 15:06:00 12/04/2014 23:59:59 [facility] Outpatient FLORENCIA HINOJOSA APRN [id number] 10/02/2014 15:13:00 10/02/2014 23:59:59 [facility] Outpatient KARTHIKEYAN BULL MARTA A [id number] 08/18/2014 15:51:00 08/18/2014 23:59:59 [facility] Outpatient FLORENCIA HINOJOSA APRN [id number] 07/21/2014 09:00:00 07/21/2014 23:59:59 [facility] Outpatient FLORENCIA HINOJOSA APRN [id number] 06/23/2014 10:41:00 06/23/2014 23:59:59 [facility] Outpatient FLORENCIA HINOJOSA APRN [id number] 06/14/2014 09:47:00 06/14/2014 23:59:59 [facility] Outpatient BETO PEREZ PHD [id number] 06/02/2014 15:00:00 06/02/2014 23:59:59 [facility] Outpatient FLORENCIA HINOJOSA APRN [id number] 05/10/2014 18:42:00 05/10/2014 23:59:59 [facility] Outpatient FLORENCIA HINOJOSA APRN [id number] 05/09/2014 17:05:00 05/09/2014 23:59:59 [facility] Outpatient BETO PEREZ PHD [id number] 04/27/2014 08:10:00 04/27/2014 23:59:59 [facility] Outpatient FLORENCIA HINOJOSA APRN [id number] 04/26/2014 15:20:00 04/26/2014 23:59:59 [facility] Outpatient FLORENCIA HINOJOSA APRN Marija [id number] 04/12/2014 15:15:00 04/12/2014 23:59:59 [facility] Outpatient FLORENCIA HINOJOSA APRN Marija [id number] 03/27/2014 16:04:00 03/27/2014 23:59:59 [facility] Outpatient BETO PEREZ PHD [id number] 03/14/2014 17:00:00 03/14/2014 23:59:59 [facility] Outpatient BETO PEREZ PHD [id number] 03/10/2014 10:51:00 03/10/2014 23:59:59 [facility] Outpatient ASHISH ORDER CALLERFLORENCIA Zavala [id number] 03/07/2014 16:03:00 03/07/2014 23:59:59 [facility] Outpatient BETO PEREZ PHD [id number] 03/02/2014 14:52:00 03/02/2014 23:59:59 [facility] Outpatient BETO PEREZ PHD [id number] 02/13/2014 17:03:00 02/13/2014 23:59:59 [facility] Outpatient BEOT PEREZ PHD [id number] 02/08/2014 07:55:00 02/08/2014 23:59:59 [facility] Outpatient BETO PEREZ PHD [id number] 01/16/2014 15:22:00 01/16/2014 23:59:59 [facility] Outpatient FLORENCIA HINOJOSA APRN Marija [id number] 10/03/2013 16:31:00 10/03/2013 23:59:59 [facility] Outpatient CAITLYN ARGUETA DO [id number] 09/12/2013 11:51:00 09/12/2013 23:59:59 [facility] Outpatient ASHISH BULL FLORENCIA Dutton [id number] 07/05/2014 10:04:00 Document Registration [id number] 05/23/2017 08:07:00 Document Registration [id number] 05/24/2018 13:10:00 05/24/2018 23:59:59 [facility] Outpatient ASHISH BRAUNN FLORENCIA Dutton [facility] [id number] 09/30/2018 14:00:00 Document Registration [id number] 04/26/2018 10:00:00 Document Registration [id number] 12/11/2017 14:15:00 Document Registration [id number] 06/20/2017 13:05:00 Document Registration [id number] 10/13/2018 16:06:00 10/13/2018 23:59:59 [facility] Outpatient SUSY GRULLON, NARCISOBENJAMINGELY Arora [facility] LAB D64.9 [id number] 07/28/2018 13:06:00 07/28/2018 23:59:59 [facility] Outpatient ASHISH FLORENCIA Marija [employer] [facility] RAD INTRACTABLE MIGRAINE WITHOUT AURO AND WO STATUS [id number] 06/22/2018 06:10:00 06/22/2018 23:59:59 [facility] Outpatient TABATHA GARCIA DO [facility] SDC GENITAL PROLAPSE, ENDOMETRIOSIS [id number] 06/09/2018 07:46:00 06/09/2018 08:30:00 DIS Outpatient TABATHA GARCIA DO [facility] PREOP GENITAL PROLAPSE, ENDOMETRIOSIS [id number] 06/04/2018 15:58:00 06/04/2018 23:59:59 CLS Preadmit ASHISH FLORENCIA Dutton [employer] [facility] RAD PINEAL GLAND CYST [id number] 06/03/2018 10:37:00 06/03/2018 23:59:59 [facility] Outpatient ASHISH FLORENCIA Dutton [employer] [facility] RAD PINEAL GLAND CYST [id number] 03/23/2018 12:02:00 03/23/2018 17:29:00 DIS Emergency LATSAHA GRULLON, LONNIE Dutton [facility] ER UNABLE TO URINATE POST OP [id number] 10/09/2017 16:02:00 10/09/2017 23:59:59 CLS Outpatient MYCHAL GARCIA [employer] [facility] RAD S83.282A LATERAL MENISCUS TEAR,MEDIAL MANISCUS [id number] 09/25/2017 11:00:00 09/25/2017 23:59:59 CLS Preadmit MYCHAL GARCIA [employer] [facility] RAD S83.241A,S83.282A [id number] 04/27/2017 07:51:00 04/27/2017 11:38:00 DIS Outpatient MAYELIN JACQUES MD [facility] ENDO MELENAL GERD [id number] 04/24/2017 09:00:00 04/24/2017 10:20:00 DIS Outpatient MAYELIN JACQUES MD [facility] PREOP MELENAL GERD [id number] 03/06/2017 10:08:00 03/06/2017 16:55:00 DIS Outpatient MAYELIN JACQUES MD [facility] FAMILY HISTORY POLYPS , RECTAL BLEEDING, HEMORROIDS [id number] 03/03/2017 05:43:00 03/03/2017 12:47:00 DIS [facility], RECTAL BLEEDING, HEMORROIDS [id number] 01/22/2017 13:13:00 01/22/2017 23:59:59 [facility] Outpatient FLORENCIA HINOJOSA [facility] RAD PELVIC PAIN,LUMBOS ACRAL NEURITIS [id number] 12/15/2016 15:12:00 12/15/2016 23:59:59 [facility] Outpatient FLORENCIA HINOJOSA [facility] RAD LEFT GROIN PAIN [id number] 07/21/2016 11:50:00 07/21/2016 13:15:00 DIS Emergency BRYAN ZALDIVAR [facility] ER FOOT PAIN [id number] 11/29/2015 12:37:00 11/29/2015 23:59:59 CLS Outpatient BERNADETTE CUNHA MD, V [facility] LAB NONSPECIFIC ABNORM RESULTS KIDNEY FUNCTION STUDY [id number] 04/25/2015 17:24:00 04/25/2015 18:18:00 DIS Emergency BRYAN ZALDIVAR [facility] ER R FOOT INJ [id number] 04/21/2015 21:22:00 04/21/2015 21:55:00 DIS Emergency FANY FOX MD [facility] ER TOOTH ACHE [id number] 02/26/2015 05:52:00 02/26/2015 23:59:59 CLS Outpatient MAYELIN JACQUES MD [facility] PREOP HEMORRHOIDS [id number] 02/21/2015 11:30:00 02/21/2015 23:59:59 CLS Preadmit MAYELIN JACQUES MD [facility] HEMORRHOIDS [id number] 02/15/2015 13:05:00 02/15/2015 23:59:59 CLS Outpatient MAYELIN JACQUES MD [facility] PREOP HEMORRHOIDS [id number] 04/03/2014 11:42:00 04/03/2014 23:59:59 CLS Outpatient ASHISH FLORENCIA Dutton STEVE [facility] RAD MEMORY LOSS [id number] 02/21/2014 19:03:00 02/21/2014 21:06:00 DIS Emergency BRYAN ZALDIVAR [facility] ER DENTAL PAIN [id number] 11/11/2013 20:23:00 11/11/2013 21:09:00 DIS Emergency HERRERA AGUILERA APRN [facility] ER DENTAL PAIN [id number] 10/17/2013 08:00:00 10/17/2013 11:20:00 DIS Outpatient MAYELIN JACQUES MD [facility] SDC RECTAL BLEEDING [id number] 10/12/2013 07:35:00 10/12/2013 23:59:59 CLS Outpatient MAYELIN JACQUES MD [facility] PREOP RECTAL BLEEDING [id number] 09/28/2013 19:01:00 09/28/2013 19:50:00 DIS Emergency LONNIE PAGAN MD [facility] ER DULL PAIN ON RIGHT SIDE OF HEAD NUMBNESS IN ARMS [id number] 06/14/2013 00:28:00 06/14/2013 02:07:00 DIS Emergency LONNIE PAGAN MD [facility] ER RIGHT ARM PAIN [id number] 06/28/2018 19:16:00 Document Registration [id number] 06/11/2015 13:51:00 Document Registration [id number] 06/11/2015 13:51:00 Document Registration [id number] 03/05/2015 11:32:00 Document Registration [id number] 09/09/2011 15:35:00 Document Registration [id number] 02/12/2011 14:20:00 Document Registration [id number] 12/31/2010 05:53:00 Document Registration [id number] 12/23/2010 15:19:00 Document Registration [id number] 12/07/2010 10:20:00 Document Registration [id number] 12/25/2016 07:06:00 Document Registration [id number] 12/05/2016 10:06:00 Document Registration [id number] 04/03/2017 08:50:00 Document Registration
[2018-10-18] MEDS ORDERED: LACTATED RINGERS 1,000 ML IV ONE (20:42)
[2018-10-18 20:55] LABS: BASOPHILS % (AUTO) 0 % (0-10); EOSINOPHILS # (AUTO) 0.2 10^3/uL (0.0-0.3); EOSINOPHILS % (AUTO) 2 % (0-10); HEMATOCRIT 40 % (35-52); HEMOGLOBIN 13.7 G/DL (11.5-16.0); LYMPHOCYTES # (AUTO) 1.3 X 10^3 (1.0-4.0); LYMPHOCYTES % (AUTO) 14 % (12-44); MEAN CORPUSCULAR HEMOGLOBIN 31 PG (25-34); MEAN CORPUSCULAR HGB CONC 34 G/DL (32-36); MEAN CORPUSCULAR VOLUME 92 FL (80-99); MONOCYTES # (AUTO) 0.7 X 10^3 (0.0-1.0); MONOCYTES % (AUTO) 7 % (0-12); NEUTROPHILS # (AUTO) 7.2 X 10^3 (1.8-7.8); NEUTROPHILS % (AUTO) 77 % (42-75); PLATELET COUNT 222 10^3/uL (130-400); RED BLOOD COUNT 4.38 10^6/uL (4.35-5.85); RED CELL DISTRIBUTION WIDTH 12.2 % (10.0-14.5); WHITE BLOOD COUNT 9.4 10^3/uL (4.3-11.0)
[2018-10-18 20:57] LABS: BILIRUBIN,URINE NEGATIVE (NEGATIVE); CLARITY,URINE CLEAR; COLOR,URINE YELLOW; GLUCOSE, URINE (UA) NEGATIVE (NEGATIVE); KETONES,URINE 1+ (NEGATIVE); LEUKOCYTE ESTERASE ,URINE 1+ (NEGATIVE); NITRITE,URINE NEGATIVE (NEGATIVE); PH,URINE 5 (5-9); PROTEIN,URINE 1+ (NEGATIVE); UROBILINOGEN,URINE 4 MG/DL (NORMAL)
[2018-10-18 21:14] LABS: BACTERIA,URINE TRACE /HPF; RBC,URINE RARE /HPF
[2018-10-18 21:17] LABS: ALBUMIN 4.2 GM/DL (3.2-4.5); BILIRUBIN,TOTAL 0.7 MG/DL (0.1-1.0); CALCIUM 9.1 MG/DL (8.5-10.1); POTASSIUM 3.7 MMOL/L (3.6-5.0); TOTAL PROTEIN 7.4 GM/DL (6.4-8.2)
[2018-10-18 21:22] LABS: AMPHETAMINE SCREEN, URINE POSITIVE (NEGATIVE); BENZODIAZEPINES SCREEN URINE POSITIVE (NEGATIVE)
[2018-10-18 21:23] LABS: BARBITURATE SCREEN URINE NEGATIVE (NEGATIVE); CANNABINOID SCREEN, URINE NEGATIVE (NEGATIVE); COCAINE SCREEN URINE NEGATIVE (NEGATIVE); METHADONE STAT NEGATIVE (NEGATIVE); METHAMPHETAMINE SCREEN URINE S NEGATIVE (NEGATIVE); OPIATE SCREEN URINE NEGATIVE (NEGATIVE); OXYCODONE STAT NEGATIVE (NEGATIVE); PROPOXYPHENE STAT NEGATIVE (NEGATIVE); TRICYCLIC ANTIDEPRESSANTS SCRE NEGATIVE (NEGATIVE)
[2018-10-18 21:32] LABS: CREATININE SERUM 1.34 MG/DL (0.60-1.30)
--- NOTE | 2018-10-18 21:58 | Diagnostic Imaging Report ---
INDICATION: Abdominal pain COMPARISON: CT abdomen from earlier the same day. FINDINGS: Single supine radiographic view of the abdomen was obtained and demonstrates nondistended loops of small bowel. There is no large collection of free peritoneal air. Mild air and stool are seen scattered throughout the colon. No unexpected extraosseous calcifications or radiopaque foreign bodies are seen. Bony structures show no gross acute abnormalities. IMPRESSION: 1. Nonobstructed small bowel gas pattern. Dictated by: Dictated on workstation # [id number]
--- NOTE | 2018-10-18 22:08 | Diagnostic Imaging Report ---
PROCEDURE: CT abdomen and pelvis without contrast. TECHNIQUE: Multiple contiguous axial images were obtained through the abdomen and pelvis without the use of intravenous contrast. INDICATION: Abdominal pain. COMPARISON: 06/28/2008 FINDINGS: Included portions of the lung bases show 3 mm subpleural micronodule within the lateral margins of the left lower lobe (image 5, series 2). This is stable compared to 06/28/2018. CT ABDOMEN: A normal appendix cannot adequately identified, but appears to be surgically absent. Small bowel loops are nondistended. The kidneys, adrenal glands, spleen, pancreas, and liver have an unremarkable noncontrast CT appearance. There is no loculated fluid collection, free fluid, or free air within the abdomen. No abnormal mesenteric or retrotracheal adenopathy is seen. Bony structures show no acute abnormalities. CT PELVIS: The urinary bladder is unopacified. No calculi are seen within the urinary bladder. There is no loculated fluid collection, free fluid, or free air within the pelvis. No abnormal lymph nodes are identified. Bony structures show no acute abnormalities. IMPRESSION: 1. No acute abnormalities are seen within the abdomen or pelvis. 2. Small 3 mm micronodule within the included portion of the left lower lobe. If the patient is in a high-risk category such as history of smoking, could consider one-year followup to ensure stability. Alternatively, if the patient is in a low-risk category, no further followup may be indicated. Dictated by: Dictated on workstation # [id number]
[2018-10-18] MEDS ORDERED: SUCR1TAB36 PO (22:20)
[2018-10-18] MEDS ORDERED: HYOS0.1283 SL (22:20)
[2018-10-18] MEDS ORDERED: DICY10CA12 PO (22:20)
[2018-10-18] MEDS ORDERED: PANT40TA2 PO (22:20)
--- NOTE | 2018-10-18 22:23 | ED Abdominal Pain ---
General Chief Complaint: Abdominal/GI Problems Stated Complaint: ABD PAIN/LYMPH NODE TENDERNESS Nursing Triage Note: PT BEGAN TO EXPERIENCE ABDOMINAL PAIN AND DISCOMFORT WITH NAUSEA YESTERDAY. STATES HER ABDOMEN IS TENDER TO THE TOUCH Sepsis Screen: No Definite Risk Source of Information: Patient History of Present Illness Date Seen by Provider: Oct 18, 2018 Time Seen by Provider: 20:39 Initial Comments PT ARRIVES VIA POV FROM HOME C/O GENERALIZED ABDOMINAL PAIN X 5 DAYS, WORSE TODAY PAIN IS WORSE IN UPPER ABDOMEN C/O NAUSEA WITH EATING AND "ALL FOOD TASTES BAD" X 2 DAYS. NO VOMITING NO DIARRHEA OR CONSTIPATION NO FEVER NO URINARY SYMPTOMS STATES SHE HAS AN APPOINTMENT THIS THURSDAY WITH [facility] MEAGH[facility] HINOJOS[facility], BUT HER BROTHER LAST Thursday10/13/18 AND IS THIS Thursday10/21/18, SO WILL NOT BE GOING TO THAT APPOINTMENT PT HAS NOT TAKEN ANYTHING FOR SYMPTOMS HAS HAD SIMILAR IN THE PAST, AND HAS BEEN PRESCRIBED GI MEDICATIONS BUT HAS NOT BEEN TAKING THEM. STATES SHE HAD EGD IN THE PAST, AND HAD " A FEW LITTLE ULCERS " IN THE PAST PCP: [facility] Allergies and Home Medications Allergies Coded Allergies: metronidazole (Verified Allergy, Unknown, NAUSEA, 06/28/18) only nausea if taken PO. Has taken IV without troubles. morphine (Verified Allergy, Unknown, SEVERE N/V, 04/27/17) prednisone (Verified Adverse Reaction, Mild, 04/27/17) Sulfa (Sulfonamide Antibiotics) (Verified Adverse Reaction, Unknown, DECREASE KIDNEY FUNCTION, 04/27/17) Home Medications Cefuroxime Axetil 500 Mg Tablet, 500 MG PO BID Prescribed by: HERRERA AGUILERA on 06/28/18 194 Diazepam 5 Mg Tablet, 5 MG PO HS PRN for ANXIETY, (Reported) Dicyclomine HCl 10 Mg Capsule, 10 MG PO Q6H Prescribed by: ADELSO HASSAN on 10/18/182219 Docusate Sodium 100 Mg Capsule, 100 MG PO BID PRN for CONSTIPATION-1ST LINE Prescribed by: TABATHA GARCIA on 06/23/18 0850 Furosemide 20 Mg Tablet, 20 MG PO DAILY, (Reported) Hyoscyamine Sulfate 0.125 Mg Tab.subl, 1-2 TAB SL Q4H Prescribed by: ADELSO HASSAN on 10/18/182219 Linaclotide 290 Mcg Capsule, 290 MG PO DAILY, (Reported) Naloxegol Oxalate 25 Mg Tablet, 25 MG PO DAILY, (Reported) Ondansetron HCl 4 Mg Tab, 4 MG PO Q4H Prescribed by: ADELSO HASSAN on 10/18/182225 Oxycodone HCl/Acetaminophen 1 Each Tablet, 1 TAB PO Q6H Prescribed by: TABATHA GARCIA on 06/23/18 0850 Pantoprazole Sodium 40 Mg Tablet.dr, 40 MG PO DAILY Prescribed by: ADELSO HASSAN on 10/18/182219 Phenazopyridine HCl 100 Mg Tablet, 100 MG PO TID Prescribed by: HERRERA AGUILERA on 06/28/18 194 Simethicone 80 Mg Tab.chew, 40 MG PO TID PRN for INDIGESTION Prescribed by: TABATHA GARCIA on 06/23/18 0850 Sucralfate 1 Gm Tablet, 1 GM PO QIDACHS Prescribed by: ADELSO HASSAN on 10/18/182219 Zolpidem Tartrate 10 Mg Tablet, 10 MG PO HS, (Reported) Patient Home Medication List Home Medication List Reviewed: Yes Review of Systems Review of Systems Constitutional: no symptoms reported Respiratory: No Symptoms Reported Cardiovascular: No Symptoms Reported Gastrointestinal: See HPI, Abdominal Pain; Denies Diarrhea; Nausea, Poor Appetite; Denies Poor Fluid Intake, Denies Vomiting Genitourinary: No Symptoms Reported Musculoskeletal: no symptoms reported Skin: no symptoms reported Psychiatric/Neurological: See HPI, Anxiety, Depressed Endocrine: No Symptoms Reported Hematologic/Lymphatic: No Symptoms Reported Past Hzaroav-Cqsgcc-Uwlcwg Hx Patient Social History Alcohol Use: Occasionally Uses Recreational Drug Use: No (DENIES BUT TESTED + FOR AMPHETAMINES 10/18/18) Smoking Status: Current Everyday Smoker (SMOKED 1 PPD, QUIT IN 2016, AND STARTED SMOKING AGAIN THIS WEEK. ) Type Used: Cigarettes 2nd Hand Smoke Exposure: No Recent Foreign Travel: No Contact w/Someone Who Travel: No Recent Infectious Disease Expo: No Recent Hopitalizations: No Physical Abuse: No Sexual Abuse: No Mistreated: No Fear: No Immunizations Up To Date Tetanus Booster (TDap): Less than 5yrs Seasonal Allergies Seasonal Allergies: Yes Past Medical History Surgeries: Yes ( X2; CERVICAL SPINE FUSION; HEMORRHOIDECTOMY; EGD/ COLONOSCOPY; RATAH WITH BILATERAL OVARIAN CYSTECTOMY WITH ANTERIOR/POSTERIOR REPAIR AND PUBOVAGINAL SLING 05/2018; ; ) Adenoidectomy, Appendectomy, Hysterectomy, Rectal, Tonsillectomy Respiratory: Yes (NO ACUTE SINCE 2014) Asthma Cardiac: No Neurological: Yes Concussion, Headaches /Migraines : No Reproductive Disorders: Yes (DUB; CHRONIC PELVIC PAIN; ENDOMETRIOSIS; JAYDEN; OVARIAN CYSTS; GENITAL PROLAPSE; CYSTO/RECTOCOELE; ) Female Reproductive Disorders: Menstrual Problems, Endometriosis, 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, IUD Sexually Transmitted Disease: No Genitourinary: Yes (STAGE 3 KIDNEY DISEASE, HEMATURIA) Renal Failure Gastrointestinal: Yes Gastroesophageal Reflux, Chronic Constipation, Hemorrhoids, Ulcer, Irritable Bowel Musculoskeletal: Yes (CHRONIC NECK PAIN WITH CERVICAL RADICULOPATHY-S/P CERVICAL SPINE FUSION) Degenerate Disk Disease, Arthritis Endocrine: No HEENT: Yes (DENTAL CARIES) Loss of Vision: Denies Hearing Impairment: Denies Cancer: No (PT SCREENED FOR LEUKEMIA D/T SWOLLEN LYMPH NODES.) Psychosocial: Yes Anxiety, Depression Integumentary: Yes (GETS HIVES FREQUENTLY) Blood Disorders: Yes (ANEMIA) Adverse Reaction/Blood Tranf: No (N/A) Family Medical History Arthritis 19 MOTHER G8 BROTHER Asthma 19 FATHER 19 MOTHER Cardiovascular disease 19 MOTHER FH: bladder cancer 19 FATHER Kidney disease 19 MOTHER Respiratory disorder 19 MOTHER (copd) No Pertinent Family Hx Physical Exam Vital Signs Vital Signs - First Documented 10/18/18 10/18/18 20:22 23:04 Temp 98.2 Pulse 94 Resp 20 B/P (MAP) 115/74 (88) Pulse Ox 99 O2 Delivery Room Air Capillary Refill : Less Than 3 Seconds Height/Weight/BMI Height: 5'6.00" Weight: 160lbs. 0.0oz. [id number]; 26.5 BMI Method:Stated General Appearance: WD/WN, no apparent distress, other (SMILING, WALKS SLIGHTLY BENT AT WAIST HOLDING LOWER ABDOMEN) HEENT: PERRL/EOMI Neck: normal inspection Respiratory: normal breath sounds, no respiratory distress, no accessory muscle use Cardiovascular: regular rate, rhythm, no murmur Gastrointestinal: normal bowel sounds, soft, no organomegaly, no pulsatile mass ; No abnormal bowel sounds, No distended, No guarding, No rebound; tenderness ( DIFFUSE TENDERNESS, BUT MOST TENDER IN EPIGASTRIC AREA. ); No hernia, No mass Back: normal inspection, no CVA tenderness Neurologic/Psychiatric: cook station II-XII nml as tested, no motor/sensory deficits, alert, normal mood/affect, oriented x 3 Skin: normal color, warm/dry, other (EXTENSIVE SORES/SCARS/SCABS TO FACE AND FOREARMS. ) Progress/Results/Core Measures Results/Orders Lab Results Laboratory Tests Test 10/18/18 20:47 Range/Units White Blood Count 9.4 4.3-11.0 10^3/uL Red Blood Count 4.38 4.35-5.85 10^6/uL Hemoglobin 13.7 11.5-16.0 G/DL Hematocrit 40 35-52 % Mean Corpuscular Volume 92 80-99 FL Mean Corpuscular Hemoglobin 31 25-34 PG Mean Corpuscular Hemoglobin Concent 34 32-36 G/DL Red Cell Distribution Width 12.2 10.0-14.5 % Platelet Count 222 130-400 10^3/uL Mean Platelet Volume 11.0 H 7.4-10.4 FL Neutrophils (%) (Auto) 77 H 42-75 % Lymphocytes (%) (Auto) 14 12-44 % Monocytes (%) (Auto) 7 0-12 % Eosinophils (%) (Auto) 2 0-10 % Basophils (%) (Auto) 0 0-10 % Neutrophils # (Auto) 7.2 1.8-7.8 X 10^3 Lymphocytes # (Auto) 1.3 1.0-4.0 X 10^3 Monocytes # (Auto) 0.7 0.0-1.0 X 10^3 Eosinophils # (Auto) 0.2 0.0-0.3 10^3/uL Basophils # (Auto) 0.0 0.0-0.1 10^3/uL Urine Color YELLOW Urine Clarity CLEAR Urine pH 5 5-9 Urine Specific [place] 1.025 H 1.016-1.022 Urine Protein 1+ H NEGATIVE Urine Glucose (UA) NEGATIVE NEGATIVE Urine Ketones 1+ H NEGATIVE Urine Nitrite NEGATIVE NEGATIVE Urine Bilirubin NEGATIVE NEGATIVE Urine Urobilinogen 4 H NORMAL MG/DL Urine Leukocyte Esterase 1+ H NEGATIVE Urine RBC (Auto) 1+ H NEGATIVE Urine RBC RARE /HPF Urine WBC 2-5 /HPF Urine Squamous Epithelial Cells 5-10 /HPF Urine Crystals NONE /LPF Urine Bacteria TRACE /HPF Urine Casts NONE /LPF Urine Mucus SMALL H /LPF Urine Culture Indicated NO Sodium Level 138 135-145 MMOL/L Potassium Level 3.7 3.6-5.0 MMOL/L Chloride Level 102 98-107 MMOL/L Carbon Dioxide Level 26 21-32 MMOL/L Anion Gap 10 5-14 MMOL/L Blood Urea Nitrogen 9 7-18 MG/DL Creatinine 1.34 H 0.60-1.30 MG/DL Estimat Glomerular Filtration Rate 44 BUN/Creatinine Ratio 7 Glucose Level 103 70-105 MG/DL Calcium Level 9.1 8.5-10.1 MG/DL Corrected Calcium 8.9 8.5-10.1 MG/DL Total Bilirubin 0.7 0.1-1.0 MG/DL Aspartate Amino Transf (AST/SGOT) 12 5-34 U/L Alanine Aminotransferase (ALT/SGPT) 8 0-55 U/L Alkaline Phosphatase 48 40-136 U/L Total Protein 7.4 6.4-8.2 GM/DL Albumin 4.2 3.2-4.5 GM/DL Amylase Level 88 25-125 U/L Lipase 28 8-78 U/L Urine Opiates Screen NEGATIVE NEGATIVE Urine Oxycodone Screen NEGATIVE NEGATIVE Urine Methadone Screen NEGATIVE NEGATIVE Urine Propoxyphene Screen NEGATIVE NEGATIVE Urine Barbiturates Screen NEGATIVE NEGATIVE Ur Tricyclic Antidepressants Screen NEGATIVE NEGATIVE Urine Phencyclidine Screen NEGATIVE NEGATIVE Urine Amphetamines Screen POSITIVE H NEGATIVE Urine Methamphetamines Screen NEGATIVE NEGATIVE Urine Benzodiazepines Screen POSITIVE H NEGATIVE Urine Cocaine Screen NEGATIVE NEGATIVE Urine Cannabinoids Screen NEGATIVE NEGATIVE My Orders Orders - SONYA,ADELSO K DO Saline Lock/Iv-Start (10/18/18 20:42) Amylase (10/18/18 20:42) Cbc With Automated Diff (10/18/18 20:42) Comprehensive Metabolic Panel (10/18/18 20:42) Drug Screen Stat (Urine) (10/18/18 20:42) Lipase (10/18/18 20:42) Ua Culture If Indicated (10/18/18 20:42) Saline Lock/Iv-Start (10/18/18 20:42) Lactated Ringers (Lr 1000 Ml Iv Solution (10/18/18 20:42) Abdomen/Kub 1view (10/18/18 21:24) Ct Abdomen/Pelvis Wo (10/18/18 21:42) Hyoscyamine Sl Tablet (Levsin Sl Tablet) (10/18/18 22:30) Pantoprazole Injection (Protonix Injecti (10/18/18 22:30) Antacid Suspension (Mylanta Suspension (10/18/18 22:30) Lidocaine 2% Viscous 15 Ml (Xylocaine Vi (10/18/18 22:30) Ondansetron Injection (Zofran Injectio (10/18/18 22:30) Hyoscyamine Sl Tablet (Levsin Sl Tablet) (10/18/18 22:34) Pantoprazole Injection (Protonix Injecti (10/18/18 22:34) Antacid Suspension (Mylanta Suspension (10/18/18 22:35) Lidocaine 2% Viscous 15 Ml (Xylocaine Vi (10/18/18 22:38) Ondansetron Injection (Zofran Injectio (10/18/18 22:33) Medications Given in ED Current Medications Medications Dose Ordered Sig/Marko Route Start Time Stop Time Status Last Admin Dose Admin Al Hydrox/Mg Hydrox/Simethicone 30 ml ONCE ONCE PO 10/18/18 22:30 10/18/18 23:10 DC 10/18/18 22:51 30 ML Al Hydrox/Mg Hydrox/Simethicone 30 ml STK-MED ONCE .ROUTE 10/18/18 22:35 10/18/18 23:10 DC 10/18/18 22:50 30 ML Hyoscyamine Sulfate 0.125 mg STK-MED ONCE .ROUTE 10/18/18 22:34 10/18/18 23:10 DC 10/18/18 22:50 0.125 MG Hyoscyamine Sulfate 0.25 mg ONCE ONCE PO 10/18/18 22:30 10/18/18 23:10 DC 10/18/18 22:51 0.25 MG Lactated Ringer's 1,000 ml @ 0 mls/hr Q0M ONCE IV 10/18/18 20:42 10/18/18 20:44 DC 10/18/18 20:57 1,000 MLS/HR Lidocaine HCl 15 ml ONCE ONCE PO 10/18/18 22:30 10/18/18 23:10 DC 10/18/18 22:52 15 ML Lidocaine HCl 15 ml STK-MED ONCE .ROUTE 10/18/18 22:38 10/18/18 23:10 DC 10/18/18 22:50 15 ML Ondansetron HCl 4 mg ONCE ONCE IVP 10/18/18 22:30 10/18/18 23:10 DC 10/18/18 22:50 4 MG Ondansetron HCl 4 mg STK-MED ONCE .ROUTE 10/18/18 22:33 10/18/18 23:10 DC 10/18/18 22:50 4 MG Pantoprazole 40 mg ONCE ONCE IV 10/18/18 22:30 10/18/18 23:10 DC 10/18/18 22:51 40 MG Pantoprazole 40 mg STK-MED ONCE .ROUTE 10/18/18 22:34 10/18/18 23:10 DC 10/18/18 22:50 40 MG Vital Signs/I&O 10/18/18 10/18/18 20:22 23:04 Temp 98.2 Pulse 94 88 Resp 20 18 B/P (MAP) 115/74 (88) 106/69 (81) Pulse Ox 99 98 O2 Delivery Room Air Room Air 10/19/18 00:00 Intake Total 1000 ml Balance 1000 ml Blood Pressure Mean: 88 Progress Progress Note : Progress Note SYMPTOMS IMPROVED AT DISMISSAL Diagnostic Imaging Comments KUB--NO ACUTE PROCESS, PER RADIOLOGIST REPORT AT 2217 CT ABDOMEN/PELVIS--NO ACUTE PROCESS, SMALL 3MM MICRONODULE IN LLL, PER RADIOLOGIST REPORT @ 2217 Reviewed: Reviewed by Me Departure Impression Primary Impression: ABDOMINAL PAIN Disposition: 01 HOME, SELF-CARE Condition: Stable Departure-Patient Inst. Referrals: [facility] [place] Primary Care Physician FLORENCIA HINOJSOA (Family) Primary Care Physician Patient Instructions: Acute Abdomen (Belly Pain), Adult (DC) Add. Discharge Instructions: CLEAR LIQUIDS--WATER, BROTH, JELLO, GATORADE TOMORROW IF YOU ARE BETTER, ADD BRATS DIET TO CLEAR LIQUIDS--BANANAS, RICE, APPLESAUCE, TOAST, SALTINES FOLLOW UP WITH YOUR DR THIS WEEK FOR FURTHER CARE All discharge instructions reviewed with patient and/or family. Voiced understanding. Scripts Ondansetron HCl (Zofran) 4 Mg Tab 4 MG PO Q4H for Nausea/Vomiting, #10 TAB Prov: ADELSO HASSAN DO 10/18/18 Pantoprazole Sodium (Protonix) 40 Mg Tablet.dr 40 MG PO DAILY, #15 TAB Prov: ADELSO HASSAN DO 10/18/18 Hyoscyamine Sulfate (Levsin-Sl) 0.125 Mg Tab.subl 1-2 TAB SL Q4H for Abdominal Pain, #15 TAB Prov: ADELSO HASSAN DO 10/18/18 Dicyclomine HCl (Dicyclomine HCl) 10 Mg Capsule 10 MG PO Q6H for Abdominal Pain, #20 CAP Prov: ADELSO HASSAN DO 10/18/18 Sucralfate (Carafate) 1 Gm Tablet 1 GM PO QIDACHS, #60 TAB Prov: ADELSO HASSAN DO 10/18/18 ADELSO HASSAN DO Oct 18, 2018 22:23
[2018-10-18] MEDS ORDERED: ONDN4T PO (22:26)
[2018-10-18] MEDS ORDERED: ANTACID SUSP 30 ML UDC (MYLANTA) PO ONE (22:30)
[2018-10-18] MEDS ORDERED: PANTOPRAZOLE 40 MG (PROTONIX) VIAL IV ONE (22:30)
[2018-10-18] MEDS ORDERED: HYOSCYAMINE 0.125 MG (LEVSIN) TAB PO ONE (22:30)
[2018-10-18] MEDS ORDERED: ONDANSETRON 4 MG/2 ML (SDV) Z0FRAN IVP ONE (22:30)
[2018-10-18] MEDS ORDERED: LIDOCAINE 2% VISCOUS 15 ML UDC PO ONE (22:30)
[2018-10-18] MEDS ORDERED: ONDANSETRON 4 MG/2 ML (SDV) Z0FRAN ONE (22:33)
[2018-10-18] MEDS ORDERED: PANTOPRAZOLE 40 MG (PROTONIX) VIAL ONE (22:34)
[2018-10-18] MEDS ORDERED: HYOSCYAMINE 0.125 MG (LEVSIN) TAB ONE (22:34)
[2018-10-18] MEDS ORDERED: ANTACID SUSP 30 ML UDC (MYLANTA) ONE (22:35)
[2018-10-18] MEDS ORDERED: LIDOCAINE 2% VISCOUS 15 ML UDC ONE (22:38)
[2018-10-18 23:04] VITALS: BP 106/69
== END 2018-10-18 23:10 | disposition home or self-care (01) ==
LOC: EDUNIT# 19:21 → ER 19:22
DX: R10.84 Generalized abdominal pain (principal); J45.909 Unspecified asthma, uncomplicated; G43.909 Migraine, unspecified, not intractable, without status migrainosus; F41.9 Anxiety disorder, unspecified; F32.9 Major depressive disorder, single episode, unspecified; D64.9 Anemia, unspecified; K21.9 Gastro-esophageal reflux disease without esophagitis; F15.10 Other stimulant abuse, uncomplicated; Z97.5 Presence of (intrauterine) contraceptive device; Z87.19 Personal history of other diseases of the digestive system; Z86.19 Personal history of other infectious and parasitic diseases; Z82.49 Family history of ischemic heart disease and other diseases of the circulatory system; Z80.52 Family history of malignant neoplasm of bladder; Z87.448 Personal history of other diseases of urinary system; Z98.890 Other specified postprocedural states; Z90.89 Acquired absence of other organs; Z90.710 Acquired absence of both cervix and uterus; Z98.1 Arthrodesis status; Z87.891 Personal history of nicotine dependence; Z88.5 Allergy status to narcotic agent; Z88.0 Allergy status to penicillin; Z88.8 Allergy status to other drugs, medicaments and biological substances
CPT/HCPCS: 36415; 74018; 74176; 80053; 80306; 81000; 82150; 83690; 85025; 96361; 96374; 96375

== ENCOUNTER → 2018-11-04 | Outpatient (CLI) | payer MEDICAID, OTHER ==
[~2018-11-04] MED LIST changes: +DICY10CA12 PO; +HYOS0.1283 SL; +ONDN4T PO; +SUCR1TAB36 PO
--- NOTE | 2018-11-05 08:06 | Diagnostic Imaging Report ---
Indication: Swollen lymph node in right axilla. Technique: Limited real-time grayscale images were obtained of the right axilla in various projections. Findings: There is a reactive-appearing lymph node in the right axilla measuring 2.3 x 2.1 x 3.5 cm. No other discrete solid or cystic masses are appreciated. Impression: 1. Category 2 benign. 2. A 2.3 cm reactive-appearing lymph node in the right axilla. ACR BI-RADS Category 2: Benign findings. Result letter will be mailed to the patient. Note: At least 10% of breast cancer is not imaged by mammography. Dictated by: Dictated on workstation # [id number]
== END ==
LOC: RAD 10:47
PROVIDERS: ATTEND Internal Medicine Hematology & Oncology
DX: R59.0 Localized enlarged lymph nodes (principal)

== ENCOUNTER → 2018-11-18 | Outpatient (CLI) | payer MEDICAID ==
[2018-11-18 15:05] LABS: FREE T4 (FREE THYROXINE) 1.19 NG/DL (0.70-1.48)
== END ==
LOC: LAB 13:45
PROVIDERS: ATTEND Nurse Practitioner Family
DX: L50.3 Dermatographic urticaria (principal); L50.8 Other urticaria; R53.83 Other fatigue
CPT/HCPCS: 36415; 84439; 84443; 84480; 86003; 86038

== ENCOUNTER 2018-12-01 14:30 | Outpatient (RCR) | payer MEDICAID, OTHER ==
[2018-10-27 18:03] LABS: ABSOLUTE RETIC # 25 10e9/L (24-90); BASOPHILS % (AUTO) 0 % (0-10); EOSINOPHILS # (AUTO) 0.3 10^3/uL (0.0-0.3); EOSINOPHILS % (AUTO) 4 % (0-10); HEMATOCRIT 40 % (35-52); HEMOGLOBIN 13.6 G/DL (11.5-16.0); LYMPHOCYTES # (AUTO) 2.8 X 10^3 (1.0-4.0); LYMPHOCYTES % (AUTO) 39 % (12-44); MEAN CORPUSCULAR HEMOGLOBIN 30 PG (25-34); MEAN CORPUSCULAR HGB CONC 34 G/DL (32-36); MEAN CORPUSCULAR VOLUME 90 FL (80-99); MONOCYTES # (AUTO) 0.5 X 10^3 (0.0-1.0); MONOCYTES % (AUTO) 7 % (0-12); NEUTROPHILS # (AUTO) 3.5 X 10^3 (1.8-7.8); NEUTROPHILS % (AUTO) 49 % (42-75); PLATELET COUNT 271 10^3/uL (130-400); RED CELL DISTRIBUTION WIDTH 11.8 % (10.0-14.5); RETICULOCYTE % 0.56 % (0.50-2.40); WHITE BLOOD COUNT 7.1 10^3/uL (4.3-11.0)
[2018-10-27 18:22] LABS: BAND NEUTROPHILS 0 %; BASOPHILS % (MANUAL) 0 %; EOSINOPHILS % (MANUAL) 6 %; LYMPHOCYTES % (MANUAL) 47 %; MONOCYTES % (MANUAL) 4 %; NEUTROPHILS % (MANUAL) 43 %; RBC MORPH NORMAL
[2018-12-01 14:45] LABS: BASOPHILS % (AUTO) 0 % (0-10); EOSINOPHILS # (AUTO) 0.1 10^3/uL (0.0-0.3); EOSINOPHILS % (AUTO) 2 % (0-10); HEMATOCRIT 37 % (35-52); HEMOGLOBIN 12.3 G/DL (11.5-16.0); LYMPHOCYTES % (AUTO) 31 % (12-44); MEAN CORPUSCULAR HEMOGLOBIN 31 PG (25-34); MEAN CORPUSCULAR HGB CONC 34 G/DL (32-36); MEAN CORPUSCULAR VOLUME 92 FL (80-99); MEAN PLATELET VOLUME 10.9 FL (7.4-10.4); MONOCYTES # (AUTO) 0.4 X 10^3 (0.0-1.0); MONOCYTES % (AUTO) 6 % (0-12); NEUTROPHILS # (AUTO) 3.9 X 10^3 (1.8-7.8); NEUTROPHILS % (AUTO) 61 % (42-75); PLATELET COUNT 196 10^3/uL (130-400); RED CELL DISTRIBUTION WIDTH 12.3 % (10.0-14.5); WHITE BLOOD COUNT 6.3 10^3/uL (4.3-11.0)
== END 2019-01-25 | disposition home or self-care (01) ==
LOC: ONC 14:30
PROVIDERS: ATTEND Internal Medicine Hematology & Oncology
DX: D72.829 Elevated white blood cell count, unspecified (principal); R21 Rash and other nonspecific skin eruption; R91.8 Other nonspecific abnormal finding of lung field; R59.9 Enlarged lymph nodes, unspecified; F41.9 Anxiety disorder, unspecified; J45.909 Unspecified asthma, uncomplicated; F32.9 Major depressive disorder, single episode, unspecified
CPT/HCPCS: 36415; 83520; 85007; 85025; 85027; 85045; 99213; 99214

== ENCOUNTER → 2018-12-01 | Outpatient (CLI) | payer MEDICAID, OTHER ==
--- NOTE | 2018-12-01 14:16 | Diagnostic Imaging Report ---
INDICATION: Bilateral arm and bilateral leg numbness and tingling as well as pain. EXAMINATION: Multiplanar multisequence imaging of the thoracic spine was performed without contrast. COMPARISON: No prior studies are available for comparison. FINDINGS: Curvature and alignment of the thoracic spine is normal. The vertebral body heights are maintained. No geographic marrow lesion or acute compression fracture is identified. There is some degenerative disc disease with disc space narrowing and desiccation noted at the T6-T7, T7-T8 and T8-T9 levels. A very small right para-midline disc bulge is seen at the T7-T8 level. However, there no central canal or neuroforaminal narrowing is seen. All other levels are unremarkable. The thoracic cord demonstrates normal homogeneous signal intensity. The paraspinous tissues are unremarkable. IMPRESSION: Mid thoracic degenerative disc disease, as described. However, no central canal or neuroforaminal stenosis is seen. No acute compression fracture is detected. Dictated by: Dictated on workstation # [id number]
--- NOTE | 2018-12-01 14:50 | Diagnostic Imaging Report ---
PROCEDURE: MRI lumbar spine. TECHNIQUE: Multiplanar, multisequence MRI of the lumbar spine was performed without contrast. INDICATION: Bilateral arm and leg numbness and tingling. COMPARISON: While I have no previous for direct comparison, this exam can be interpreted in correlation with abdominal and pelvic CT performed 10/18/2018, that exam including sagittal and coronal reconstructions. FINDINGS: The lower thoracic cord and the conus appear normal. The nerves of the cauda equina reveal an unremarkable dispersal pattern. No intrathecal abnormality. No abnormality at the level of the filum terminale. Lumbar vertebral body heights are maintained. The alignment is anatomic. The marrow signal intensity is normal. There is desiccation without substantial stature loss but accompanied by mild circumferential bulging of the disc at the L4-L5 level. No focal herniation or resultant canal, foraminal, or recess stenosis is found. Discs at the remaining levels are well hydrated and nondisplaced. The pedicles and pars are intact. There is partial visualization of likely ovarian follicular cysts bilaterally at the caudal portion of this exam. IMPRESSION: Mild degenerative changes involve the L4-L5 disc without resultant stenosis. Normal appearance of the osseous structures. Aligned anatomically. No acute appearing abnormality. Dictated by: Dictated on workstation # [id number]
== END ==
LOC: RAD 12:36
DX: M51.34 Other intervertebral disc degeneration, thoracic region (principal); M51.36 Other intervertebral disc degeneration, lumbar region; M54.41 Lumbago with sciatica, right side; M54.42 Lumbago with sciatica, left side
CPT/HCPCS: 72146; 72148

== ENCOUNTER → 2018-12-31 | Outpatient (CLI) | payer MEDICAID | LOC: CARD 10:58 | PROVIDERS: ATTEND Internal Medicine Cardiovascular Disease | DX: R07.9 Chest pain, unspecified (principal); R06.09 Other forms of dyspnea; R42 Dizziness and giddiness; R55 Syncope and collapse; I34.0 Nonrheumatic mitral (valve) insufficiency | CPT/HCPCS: 93306 ==

== ENCOUNTER → 2019-01-03 | Outpatient (CLI) | payer MEDICAID ==
[2019-01-03 18:04] VITALS: BP 133/79
--- NOTE | 2019-01-03 18:04 | Cardiology Stress Test Report ---
Stress Test Report Date of Procedure/Referring: Date of Procedure: Jan 03, 2019 PCP Felicia Gonzalez Admitting Physician [facility] Baseline Heart Rate: 110 Baseline Blood Pressure: Blood Pressure Systolic: 133 Blood Pressure Diastolic: 79 Baseline EKG: Baseline EKG: sinus tachycardia Summary/Conclusion: Summary: In summary, the patient started exercising with a baseline heart rate, blood pressure and EKG mentioned above Patient was able to exercise for a total of 7:90 minutes on Jaspreet protocol, 9.1 METs Maximum heart rate 168 Maximum blood pressure 202/55 Stress EKG Minimal nondiagnostic changes Recovery EKG Return to baseline Conclusion: 1. Good exercise tolerance for a total of 7:30 minutes on Jaspreet protocol, 9.1 METs, achieving 92 percent of maximum expected heart rate 2. Minimal nondiagnostic EKG changes with exercise returned to baseline during recovery 3. No arrhythmia was noted 4. Baseline sinus tachycardia, return to baseline after stress test 5. Hypertensive response to exercise PIO ROJAS MD Jan 03, 2019 18:04
== END ==
LOC: CARD 09:05
PROVIDERS: ATTEND Physician Assistant
DX: R07.9 Chest pain, unspecified (principal); R06.09 Other forms of dyspnea; R42 Dizziness and giddiness; R55 Syncope and collapse
CPT/HCPCS: 93017

== ENCOUNTER → 2019-01-05 | Outpatient (CLI) | payer MEDICAID ==
[2019-01-05] VITALS (28 sets, daily range): BP systolic 80–121; BP diastolic 36–89
[~2019-01-05] VITALS: Ht 167.6 cm; Wt 72.6 kg
[~2019-01-05] MED LIST changes: +ATROPINE INJECTION 1 MG/10 ML SYR (ABBOTT) ONE; +NS IV 500 ML 500 ML IV ONE; +NS IV 500 ML 500 ML ONE
--- NOTE | 2019-01-06 08:09 | Cardiology Tilt Table Test ---
Cardiology-Tilt Table Test Tilt Table Test Date 01/06/19 Baseline Vitals Vital Signs Date Time Temp Pulse Resp B/P (MAP) Pulse Ox O2 Delivery O2 Flow Rate FiO2 01/05/19 11:06 77 17 115/83 (94) 100 Room Air Vital Signs VS - Last 72 Hours, by Label 01/05/19 01/05/19 01/05/19 01/05/19 11:06 11:17 11:18 11:19 Pulse 77 94 104 104 Resp 17 B/P (MAP) 115/83 (94) 98/64 (75) 97/77 (84) 99/79 (86) Pulse Ox 100 100 100 100 O2 Delivery Room Air 01/05/19 01/05/19 01/05/19 01/05/19 11:20 11:21 11:22 11:23 Pulse 108 112 104 108 B/P (MAP) 103/78 (86) 103/78 (86) 99/84 (89) 105/81 (89) Pulse Ox 100 100 100 100 01/05/19 01/05/19 01/05/19 01/05/19 11:25 11:25 11:27 11:30 Pulse 114 117 74 71 B/P (MAP) 105/82 (90) 121/74 (90) 108/78 (88) 105/72 (83) 01/05/19 01/05/19 01/05/19 01/05/19 11:30 11:31 11:32 11:33 Pulse 86 95 95 124 B/P (MAP) 110/69 (83) 103/72 (82) 102/66 (78) 92/58 (69) 01/05/19 01/05/19 01/05/19 01/05/19 11:35 11:36 11:38 11:39 Pulse 155 157 146 147 B/P (MAP) 89/67 (74) 90/48 (62) 85/59 (68) 89/49 (62) 01/05/19 01/05/19 01/05/19 01/05/19 11:40 11:42 11:43 11:44 Pulse 138 134 139 138 B/P (MAP) 105/59 (74) 95/56 (69) 89/54 (66) 80/59 (66) 01/05/19 01/05/19 01/05/19 01/05/19 11:44 11:45 11:46 11:47 Pulse 137 136 138 141 B/P (MAP) 88/36 (53) 93/58 (70) 91/78 (82) 01/05/19 01/05/19 01/05/19 01/05/19 11:48 11:49 11:53 12:01 Pulse 98 86 64 85 Resp 19 B/P (MAP) 106/70 (82) 95/62 (73) 91/64 (73) 101/89 (93) Pulse Ox 99 Patient was tilted to 75 degrees for [10] minutes, then returned to supine position, given [2] sublingual nitroglycerin tablets, then tilted again to 75 degrees for [15] minutes. During test, patient was: symptomatic (during stage 2, patient became symptomatic with dizziness/lightheadedness and nausea. Patient was tachycardic and hypotensive throughout the entire second stage without any syncope. ) In Conclusion;: Positive Tilt Table Test This is Felicia Brito PA-C, as a scribe for Dr. Novak. FELICIA QUIÑONES Jan 06, 2019 08:09
== END ==
LOC: CARD 10:17
PROVIDERS: ATTEND Physician Assistant
DX: R07.9 Chest pain, unspecified (principal)
CPT/HCPCS: 93660

== ENCOUNTER 2019-03-02 14:50 | Outpatient (RCR) | payer MEDICAID ==
[~2019-03-02 14:50] MED LIST changes: -ATROPINE INJECTION 1 MG/10 ML SYR (ABBOTT) ONE; -NS IV 500 ML 500 ML IV ONE; -NS IV 500 ML 500 ML ONE
[2019-03-02 14:59] LABS: BASOPHILS % (AUTO) 0 % (0-10); EOSINOPHILS # (AUTO) 0.1 10^3/uL (0.0-0.3); EOSINOPHILS % (AUTO) 1 % (0-10); HEMATOCRIT 38 % (35-52); HEMOGLOBIN 12.9 G/DL (11.5-16.0); LYMPHOCYTES # (AUTO) 1.8 X 10^3 (1.0-4.0); LYMPHOCYTES % (AUTO) 24 % (12-44); MEAN CORPUSCULAR HEMOGLOBIN 32 PG (25-34); MEAN CORPUSCULAR HGB CONC 34 G/DL (32-36); MEAN CORPUSCULAR VOLUME 94 FL (80-99); MONOCYTES # (AUTO) 0.4 X 10^3 (0.0-1.0); MONOCYTES % (AUTO) 6 % (0-12); NEUTROPHILS # (AUTO) 5.2 X 10^3 (1.8-7.8); NEUTROPHILS % (AUTO) 69 % (42-75); PLATELET COUNT 236 10^3/uL (130-400); RED CELL DISTRIBUTION WIDTH 11.9 % (10.0-14.5); WHITE BLOOD COUNT 7.5 10^3/uL (4.3-11.0)
[2019-03-02 15:17] LABS: ALBUMIN 4.3 GM/DL (3.2-4.5); BILIRUBIN,TOTAL 0.8 MG/DL (0.1-1.0); CALCIUM 9.2 MG/DL (8.5-10.1); CREATININE SERUM 1.12 MG/DL (0.60-1.30); POTASSIUM 3.1 MMOL/L (3.6-5.0); TOTAL PROTEIN 7.3 GM/DL (6.4-8.2)
[2019-03-29] MEDS ORDERED: DEXT10TA9 PO (19:31)
[2019-03-29] MEDS ORDERED: VORT5TAB PO (19:31)
[2019-03-29] MEDS ORDERED: HYOS0.1283 SL (20:49)
[2019-03-29] MEDS ORDERED: DICY10CA12 PO (20:49)
[2019-03-29] MEDS ORDERED: ONDA8TAB13 PO (20:49)
[2019-03-29] MEDS ORDERED: PANT40TA2 PO (20:49)
== END 2019-05-31 | disposition home or self-care (01) ==
LOC: ONC 14:50
PROVIDERS: ATTEND Internal Medicine Hematology & Oncology
DX: D72.829 Elevated white blood cell count, unspecified (principal); R21 Rash and other nonspecific skin eruption; R91.8 Other nonspecific abnormal finding of lung field; R59.9 Enlarged lymph nodes, unspecified; F41.9 Anxiety disorder, unspecified; J45.909 Unspecified asthma, uncomplicated; F32.9 Major depressive disorder, single episode, unspecified
CPT/HCPCS: 36415; 80053; 85025; 99213

== ENCOUNTER → 2019-03-07 | Outpatient (CLI) | payer MEDICAID ==
--- NOTE | 2019-03-07 15:36 | Diagnostic Imaging Report ---
PROCEDURE: CT chest without contrast. TECHNIQUE: Multiple contiguous axial images were obtained through the chest without the use of intravenous contrast. Auto Exposure Controls were utilized during the CT exam to meet ALARA standards for radiation dose reduction. INDICATION: Lung nodule. Study is performed for followup. COMPARISON: Correlation is made with prior CT of the abdomen and pelvis study from 10/18/2018. FINDINGS: No axillary lymphadenopathy is seen. Hilar and mediastinal evaluation is limited without intravenous contrast. No gross abnormality is seen. No pericardial or pleural fluid is detected. Previously noted tiny subpleural micronodule in the lateral aspect of the left lower lobe is stable at approximately 2-3 mm. There is a second micronodule more cephalad in the left lower lobe, likely not included on prior CT and also measuring 2-3 mm. No other pulmonary nodules are identified. Upper abdomen is unremarkable. IMPRESSION: Pulmonary micronodules in the left lower lobe, as described. Additional followup in one year could be performed to assure stability. Dictated by: Dictated on workstation # [id number]
== END ==
LOC: RAD 14:38
PROVIDERS: ATTEND Internal Medicine Hematology & Oncology
DX: R91.8 Other nonspecific abnormal finding of lung field (principal)
CPT/HCPCS: 71250

== ENCOUNTER 2019-03-29 19:16 | Emergency (ER) | payer MEDICAID ==
[~2019-03-29] VITALS: Ht 167.6 cm; Wt 65.8 kg
[2019-03-29] MEDS ORDERED: ONDANSETRON 4 MG/2 ML (SDV) Z0FRAN IVP ONE ×2 (19:30→21:00)
[2019-03-29] MEDS ORDERED: HYOSCYAMINE 0.125 MG (LEVSIN) TAB SL ONE (19:30)
[2019-03-29] MEDS ORDERED: LACTATED RINGERS 1,000 ML IV ONE ×3 (19:30→21:22)
[2019-03-29] MEDS ORDERED: VORT5TAB PO (19:31)
[2019-03-29] MEDS ORDERED: DEXT10TA9 PO (19:31)
--- NOTE | 2019-03-29 19:43 | ED Abdominal Pain ---
General Chief Complaint: Abdominal/GI Problems Stated Complaint: ABD PAIN/SWELLING Nursing Triage Note: nausea/abdominal/back pain Sepsis Screen: No Definite Risk Source of Information: Patient History of Present Illness Date Seen by Provider: March 29, 2019 Time Seen by Provider: 19:30 Initial Comments PT ARRIVES VIA POV FROM HOME STATES SHE HAS BEEN HAVING DIFFUSE ABDOMINAL PAIN FOR A FEW DAYS, BUT HAS BEEN SEVERE SINCE THIS AM ALSO IS HAVING DIFFUSE MID AND LOWER BACK PAIN NOW WELL STATES HER ABDOMEN FEELS DISTENDED. + NAUSEA, NO VOMITING. STATES SHE DOES NOT HAVE AN APPETITE, BUT "FORCES HERSELF TO EAT" WHICH MAKES SYMPTOMS WORSE NO DIARRHEA, HAD A NORMAL BM TODAY. PT HAS IBS AND TAKES LINZESS. STATES THIS IS NOT SAME HAS HER IBS ISSUES NO FEVER NO URINARY SYMPTOMS NO HISTORY OF SIMILAR, PER PT, BUT ON REVIEW OF RECORDS, PT WAS SEEN HERE FOR EXACT SAME COMPLAINT. WORK UP NEGATIVE. 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 Allergies and Home Medications Allergies Coded Allergies: metronidazole (Verified Allergy, Unknown, NAUSEA, 06/28/18) only nausea if taken PO. Has taken IV without troubles. morphine (Verified Allergy, Unknown, SEVERE N/V, 04/27/17) prednisone (Verified Adverse Reaction, Mild, 04/27/17) Sulfa (Sulfonamide Antibiotics) (Verified Adverse Reaction, Unknown, DECREASE KIDNEY FUNCTION, 04/27/17) Home Medications Dicyclomine HCl 10 Mg Capsule, 10 MG PO Q6H Prescribed by: ADELSO HASSAN on 10/18/182219 Dicyclomine HCl 10 Mg Capsule, 10 MG PO Q6H Prescribed by: ADELSO HASSAN on 03/29/192048 Furosemide 20 Mg Tablet, 20 MG PO DAILY, (Reported) Hyoscyamine Sulfate 0.125 Mg Tab.subl, 1-2 TAB SL Q4H Prescribed by: ADELSO HASSAN on 03/29/192048 Linaclotide 290 Mcg Capsule, 290 MG PO DAILY, (Reported) Ondansetron 8 Mg Tab.rapdis, 8 MG PO Q6H Prescribed by: ADELSO HASSAN on 03/29/192048 Oxycodone HCl/Acetaminophen 1 Each Tablet, 1 TAB PO Q6H Prescribed by: TABATHA GARCIA on 06/23/18 0850 Pantoprazole Sodium 40 Mg Tablet.dr, 40 MG PO DAILY Prescribed by: ADELSO HASSAN on 03/29/192048 Sucralfate 1 Gm Tablet, 1 GM PO QIDACHS Prescribed by: ADELSO HASSAN on 10/18/180 Vortioxetine Hydrobromide 5 Mg Tablet, Unknown Dose PO DAILY, (Reported) Zolpidem Tartrate 10 Mg Tablet, 10 MG PO HS, (Reported) Patient Home Medication List Home Medication List Reviewed: Yes Review of Systems Review of Systems Constitutional: No chills, No diaphoresis, No fever Respiratory: No Symptoms Reported Cardiovascular: No Symptoms Reported Gastrointestinal: See HPI, Abdominal Pain; Denies Constipated, Denies Diarrhea ; Nausea, Poor Appetite; Denies Rectal Bleeding, Denies Vomiting Genitourinary: No Symptoms Reported Musculoskeletal: see HPI, back pain Skin: no symptoms reported Psychiatric/Neurological: No Symptoms Reported Endocrine: No Symptoms Reported Hematologic/Lymphatic: No Symptoms Reported Past Lgliysv-Acghlx-Jyplax Hx Patient Social History Alcohol Use: Rarely Uses Number of Drinks Today: AA Alcohol Beverage of Choice: Beer Recreational Drug Use: Yes (THC TEEN) Smoking Status: Former Smoker (1 PPD, QUIT 2016) Type Used: Cigarettes Former Smoker, Quit: Nov 23, 2018 2nd Hand Smoke Exposure: Yes Recent Foreign Travel: No Contact w/Someone Who Travel: No Recent Infectious Disease Expo: No Recent Hopitalizations: No Immunizations Up To Date Tetanus Booster (TDap): Less than 5yrs Seasonal Allergies Seasonal Allergies: Yes Past Medical History Surgeries: Yes (RA- BONNY WITH BILATERAL OVARIAN CYST REMOVALS AND ANTERIOR/ POSTERIOR REPAIR AND PUBO-VAGINAL SLING /OVARIES INTACT 05/2018; APPY 2000; C- SPINE FUSIONL EGD/COLONOSCOPIES: X 2; HEMORRHOIDECTOMY; ) Adenoidectomy, Appendectomy, Section, Hysterectomy, Orthopedic, Rectal , Tonsillectomy Respiratory: Yes (lung nodule) Asthma Currently Using CPAP: No Currently Using BIPAP: No Cardiac: No Neurological: Yes Brain Tumor, Headaches /Migraines : No Reproductive Disorders: Yes (DUB, CHRONIC PELVIC PAIN; ENDOMETRIOSIS; JAYDEN; OVARIAN CYSTS; GENITAL PROLAPSE; CYSTO/RECTOCOELE) Female Reproductive Disorders: Menstrual Problems, Endometriosis, 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 Sexually Transmitted Disease: No HIV/AIDS: Yes Genitourinary: Yes (STAGE 3 KIDNEY DISEASE, HEMATURIA) Renal Failure Gastrointestinal: Yes Gastroesophageal Reflux, Chronic Constipation, Hemorrhoids, Ulcer, Irritable Bowel Musculoskeletal: Yes (CHRONIC NECK PAIN WITH CERVICAL RADICULOPATHY-S/P CERVICAL SPINE FUSION; CHRONIC GENERALIZED PAIN--STATES "NO ONE CAN COME UP WITH A DIAGNOSIS" ) Degenerate Disk Disease, Arthritis Endocrine: No HEENT: Yes (DENTAL CARIES) Loss of Vision: Denies Hearing Impairment: Denies Cancer: No Psychosocial: Yes Sleep Difficulties, Anxiety, Depression Integumentary: Yes (FREQUENT HIVES) Blood Disorders: Yes (ANEMIA) Adverse Reaction/Blood Tranf: No Family Medical History Arthritis 19 MOTHER G8 BROTHER Asthma 19 FATHER 19 MOTHER Cardiovascular disease 19 MOTHER FH: bladder cancer 19 FATHER Kidney disease 19 MOTHER Respiratory disorder 19 MOTHER (copd) No Pertinent Family Hx Physical Exam Vital Signs Vital Signs - First Documented 03/29/19 19:21 Temp 97.6 Pulse 73 Resp 18 B/P (MAP) 112/74 (87) Pulse Ox 100 O2 Delivery Room Air Capillary Refill : Less Than 3 Seconds Height/Weight/BMI Height: 5'6.00" Weight: 145lbs. 0.0oz. 65.873466fr; 25.8 BMI Method:Stated General Appearance: WD/WN, no apparent distress, other (SMILING, CONSTANT MOVEMENTS OF BODY AND MOUTH, BUT GUARDING/HOLDING PILLOW OVER ABDOMEN. 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 ) Progress/Results/Core Measures Results/Orders Lab Results Laboratory Tests Test 03/29/19 19:40 03/29/19 19:45 Range/Units Urine Color YELLOW Urine Clarity SLIGHTLY CLOUDY Urine pH 6 5-9 Urine Specific [place] 1.010 L 1.016-1.022 Urine Protein NEGATIVE NEGATIVE Urine Glucose (UA) NEGATIVE NEGATIVE Urine Ketones NEGATIVE NEGATIVE Urine Nitrite NEGATIVE NEGATIVE Urine Bilirubin NEGATIVE NEGATIVE Urine Urobilinogen NORMAL NORMAL MG/DL Urine Leukocyte Esterase NEGATIVE NEGATIVE Urine RBC (Auto) NEGATIVE NEGATIVE Urine RBC RARE /HPF Urine WBC RARE /HPF Urine Squamous Epithelial Cells 2-5 /HPF Urine Crystals NONE /LPF Urine Bacteria TRACE /HPF Urine Casts NONE /LPF Urine Mucus NEGATIVE /LPF Urine Culture Indicated NO Urine Opiates Screen NEGATIVE NEGATIVE Urine Oxycodone Screen NEGATIVE NEGATIVE Urine Methadone Screen NEGATIVE NEGATIVE Urine Propoxyphene Screen NEGATIVE NEGATIVE Urine Barbiturates Screen NEGATIVE NEGATIVE Ur Tricyclic Antidepressants Screen NEGATIVE NEGATIVE Urine Phencyclidine Screen NEGATIVE NEGATIVE Urine Amphetamines Screen POSITIVE H NEGATIVE Urine Methamphetamines Screen NEGATIVE NEGATIVE Urine Benzodiazepines Screen NEGATIVE NEGATIVE Urine Cocaine Screen NEGATIVE NEGATIVE Urine Cannabinoids Screen NEGATIVE NEGATIVE White Blood Count 7.6 4.3-11.0 10^3/uL Red Blood Count 3.98 L 4.35-5.85 10^6/uL Hemoglobin 12.4 11.5-16.0 G/DL Hematocrit 37 35-52 % Mean Corpuscular Volume 92 80-99 FL Mean Corpuscular Hemoglobin 31 25-34 PG Mean Corpuscular Hemoglobin Concent 34 32-36 G/DL Red Cell Distribution Width 11.4 10.0-14.5 % Platelet Count 200 130-400 10^3/uL Mean Platelet Volume 10.8 H 7.4-10.4 FL Neutrophils (%) (Auto) 57 42-75 % Lymphocytes (%) (Auto) 33 12-44 % Monocytes (%) (Auto) 8 0-12 % Eosinophils (%) (Auto) 2 0-10 % Basophils (%) (Auto) 0 0-10 % Neutrophils # (Auto) 4.3 1.8-7.8 X 10^3 Lymphocytes # (Auto) 2.5 1.0-4.0 X 10^3 Monocytes # (Auto) 0.6 0.0-1.0 X 10^3 Eosinophils # (Auto) 0.2 0.0-0.3 10^3/uL Basophils # (Auto) 0.0 0.0-0.1 10^3/uL Sodium Level 137 135-145 MMOL/L Potassium Level 3.3 L 3.6-5.0 MMOL/L Chloride Level 103 98-107 MMOL/L Carbon Dioxide Level 26 21-32 MMOL/L Anion Gap 8 5-14 MMOL/L Blood Urea Nitrogen 13 7-18 MG/DL Creatinine 1.32 H 0.60-1.30 MG/DL Estimat Glomerular Filtration Rate 45 BUN/Creatinine Ratio 10 Glucose Level 88 70-105 MG/DL Calcium Level 8.9 8.5-10.1 MG/DL Corrected Calcium 8.7 8.5-10.1 MG/DL Total Bilirubin 0.6 0.1-1.0 MG/DL Aspartate Amino Transf (AST/SGOT) 13 5-34 U/L Alanine Aminotransferase (ALT/SGPT) 10 0-55 U/L Alkaline Phosphatase 41 40-136 U/L Total Protein 7.1 6.4-8.2 GM/DL Albumin 4.3 3.2-4.5 GM/DL Amylase Level 96 25-125 U/L Lipase 40 8-78 U/L My Orders Orders - ADELSO HASSAN DO Ed Iv/Invasive Line Start (03/29/19 19:30) Amylase (03/29/19 19:30) Cbc With Automated Diff (03/29/19 19:30) Comprehensive Metabolic Panel (03/29/19 19:30) Drug Screen Stat (Urine) (03/29/19 19:30) Lipase (03/29/19 19:30) Ua Culture If Indicated (03/29/19 19:30) Ed Iv/Invasive Line Start (03/29/19 19:30) Lactated Ringers (Lr 1000 Ml Iv Solution (03/29/19 19:30) Ondansetron Injection (Zofran Injectio (03/29/19 19:30) Hyoscyamine Sl Tablet (Levsin Sl Tablet) (03/29/19 19:30) Ct Abdomen/Pelvis Wo (03/29/19 20:02) Acute Abd Series (03/29/19 20:02) Pantoprazole Injection (Protonix Injecti (03/29/19 20:45) Potassium Chloride (Tablet) (Klor Con Ta (03/29/19 20:45) Ondansetron Injection (Zofran Injectio (03/29/19 21:00) Ketorolac Injection (Toradol Injection) (03/29/19 21:00) Ed Iv/Invasive Line Start (03/29/19 20:46) Lactated Ringers (Lr 1000 Ml Iv Solution (03/29/19 20:46) Ed Iv/Invasive Line Start (03/29/19 21:22) Lactated Ringers (Lr 1000 Ml Iv Solution (03/29/19 21:22) Medications Given in ED Current Medications Medications Dose Ordered Sig/Marko Route Start Time Stop Time Status Last Admin Dose Admin Hyoscyamine Sulfate 0.25 mg ONCE ONCE SL 03/29/19 19:30 03/29/19 19:39 DC 03/29/19 19:45 0.25 MG Ketorolac Tromethamine 30 mg ONCE ONCE IVP 03/29/19 21:00 03/29/19 21:50 DC 03/29/19 20:53 30 MG Lactated Ringer's 1,000 ml @ 0 mls/hr Q0M ONCE IV 03/29/19 19:30 03/29/19 19:39 DC 03/29/19 19:45 0 MLS/HR Lactated Ringer's 1,000 ml @ 0 mls/hr Q0M ONCE IV 03/29/19 20:46 03/29/19 21:50 DC 03/29/19 20:52 0 MLS/HR Lactated Ringer's 1,000 ml @ 0 mls/hr Q0M ONCE IV 03/29/19 21:22 03/29/19 21:23 DC 03/29/19 21:27 0 MLS/HR Ondansetron HCl 4 mg ONCE ONCE IVP 03/29/19 19:30 03/29/19 19:39 DC 03/29/19 19:45 4 MG Ondansetron HCl 4 mg ONCE ONCE IVP 03/29/19 21:00 03/29/19 21:50 DC 03/29/19 20:53 4 MG Pantoprazole 40 mg ONCE ONCE IV 03/29/19 20:45 03/29/19 21:50 DC 03/29/19 20:53 40 MG Potassium Chloride 20 meq ONCE ONCE PO 03/29/19 20:45 03/29/19 21:50 DC 03/29/19 20:53 20 MEQ Vital Signs/I&O 03/29/19 03/29/19 19:21 22:02 Temp 97.6 97.5 Pulse 73 73 Resp 18 16 B/P (MAP) 112/74 (87) 90/64 (73) Pulse Ox 100 100 O2 Delivery Room Air Room Air 03/30/19 00:00 Intake Total 3000 ml Balance 3000 ml Blood Pressure Mean: 87 Progress Progress Note : Progress Note SYMPTOMS IMPROVED AT DISMISSAL Diagnostic Imaging Comments CT ABDOMEN/PELVIS--NO ACUTE PROCESS, SMALL LEFT ADNEXAL CYSTS--PER RADIOLOGIST REPORT AT 2039 ABDOMEN XRAYS--NO ACUTE PROCESS, PER RADIOLOGIST REPORT @ 2052 Reviewed: Reviewed by Me Departure Impression Primary Impression: ABDOMINAL PAIN Additional Impressions: MILD HYPOKALEMIA Chronic renal insufficiency Left ovarian cyst Disposition: HOME, SELF-CARE Condition: Stable Departure-Patient Inst. Referrals: [facility] (PCP) Primary Care Physician FLORENCIA HINOJOSA (Family) Primary Care Physician Patient Instructions: Acute Abdomen (Belly Pain), Adult (DC) Add. Discharge Instructions: LOTS OF CLEAR LIQUIDS--WATER, BROTH, JELLO, GATORADE TOMORROW IF YOU ARE BETTER, ADD BRATS DIET TO CLEAR LIQUIDS--BANANAS, RICE, APPLESAUCE, TOAST, SALTINES FOLLOW UP WITH [facility] THIS WEEK FOR FURTHER CARE All discharge instructions reviewed with patient and/or family. Voiced understanding. Scripts Pantoprazole Sodium (Protonix) 40 Mg Tablet.dr 40 MG PO DAILY, #15 TAB Prov: SONYAADELSO K DO 03/29/19 Dicyclomine HCl (Dicyclomine HCl) 10 Mg Capsule 10 MG PO Q6H for Abdominal Pain, #20 CAP Prov: SONYA,ADELSO K DO 03/29/19 Hyoscyamine Sulfate (Levsin-Sl) 0.125 Mg Tab.subl 1-2 TAB SL Q4H for Abdominal Pain, #15 TAB Prov: ADELSO HASSAN DO 03/29/19 Ondansetron (Ondansetron Odt) 8 Mg Tab.rapdis 8 MG PO Q6H for Nausea/Vomiting, #10 TAB Prov: ADELSO HASSAN DO 03/29/19 ADELSO HASSAN DO March 29, 2019 19:43
--- NOTE | 2019-03-29 19:45 | NUR ---
pt informed of anticipated lab wait time. denies needs at this time.
[2019-03-29 19:55] LABS: BASOPHILS % (AUTO) 0 % (0-10); EOSINOPHILS # (AUTO) 0.2 10^3/uL (0.0-0.3); EOSINOPHILS % (AUTO) 2 % (0-10); HEMATOCRIT 37 % (35-52); HEMOGLOBIN 12.4 G/DL (11.5-16.0); LYMPHOCYTES # (AUTO) 2.5 X 10^3 (1.0-4.0); LYMPHOCYTES % (AUTO) 33 % (12-44); MEAN CORPUSCULAR HEMOGLOBIN 31 PG (25-34); MEAN CORPUSCULAR HGB CONC 34 G/DL (32-36); MEAN CORPUSCULAR VOLUME 92 FL (80-99); MEAN PLATELET VOLUME 10.8 FL (7.4-10.4); MONOCYTES # (AUTO) 0.6 X 10^3 (0.0-1.0); MONOCYTES % (AUTO) 8 % (0-12); NEUTROPHILS # (AUTO) 4.3 X 10^3 (1.8-7.8); NEUTROPHILS % (AUTO) 57 % (42-75); PLATELET COUNT 200 10^3/uL (130-400); RED CELL DISTRIBUTION WIDTH 11.4 % (10.0-14.5); WHITE BLOOD COUNT 7.6 10^3/uL (4.3-11.0)
[2019-03-29 19:55] LABS: BILIRUBIN,URINE NEGATIVE (NEGATIVE); CLARITY,URINE SLIGHTLY CLOUDY; COLOR,URINE YELLOW; GLUCOSE, URINE (UA) NEGATIVE (NEGATIVE); KETONES,URINE NEGATIVE (NEGATIVE); LEUKOCYTE ESTERASE ,URINE NEGATIVE (NEGATIVE); NITRITE,URINE NEGATIVE (NEGATIVE); PH,URINE 6 (5-9); PROTEIN,URINE NEGATIVE (NEGATIVE); UROBILINOGEN,URINE NORMAL (NORMAL)
[2019-03-29 20:08] LABS: BACTERIA,URINE TRACE /HPF; RBC,URINE RARE /HPF; WBC,URINE RARE /HPF
[2019-03-29 20:10] LABS: AMPHETAMINE SCREEN, URINE POSITIVE (NEGATIVE); BARBITURATE SCREEN URINE NEGATIVE (NEGATIVE); BENZODIAZEPINES SCREEN URINE NEGATIVE (NEGATIVE); CANNABINOID SCREEN, URINE NEGATIVE (NEGATIVE); COCAINE SCREEN URINE NEGATIVE (NEGATIVE); METHADONE STAT NEGATIVE (NEGATIVE); METHAMPHETAMINE SCREEN URINE S NEGATIVE (NEGATIVE); OPIATE SCREEN URINE NEGATIVE (NEGATIVE); OXYCODONE STAT NEGATIVE (NEGATIVE); PROPOXYPHENE STAT NEGATIVE (NEGATIVE); TRICYCLIC ANTIDEPRESSANTS SCRE NEGATIVE (NEGATIVE)
[2019-03-29 20:21] LABS: ALBUMIN 4.3 GM/DL (3.2-4.5); BILIRUBIN,TOTAL 0.6 MG/DL (0.1-1.0); CALCIUM 8.9 MG/DL (8.5-10.1); CREATININE SERUM 1.32 MG/DL (0.60-1.30); POTASSIUM 3.3 MMOL/L (3.6-5.0); TOTAL PROTEIN 7.1 GM/DL (6.4-8.2)
--- NOTE | 2019-03-29 20:36 | Diagnostic Imaging Report ---
PROCEDURE: CT abdomen and pelvis without contrast. TECHNIQUE: Multiple contiguous axial images were obtained through the abdomen and pelvis without the use of intravenous contrast. Auto Exposure Controls were utilized during the CT exam to meet ALARA standards for radiation dose reduction. INDICATION: Severe abdominal pain. FINDINGS: Unenhanced images of the liver and spleen reveal no focal abnormality. No pancreatic, adrenal gland, or renal abnormality is seen on the noncontrasted images. There is no evidence of free fluid in the abdomen or pelvis. There is no evidence of bowel obstruction. There is an approximately 2.2 cm cystic structure in the left adnexal region which may be ovarian. A smaller 1.5 cm cyst is also present in this region. There are multiple bilateral pelvic phleboliths. Surgical changes are seen at the level of the uterus and lower rectum. IMPRESSION: Probable cyst in the remaining left ovary. Otherwise, no acute abnormality is seen within the abdomen or pelvis. Dictated by: Dictated on workstation # [id number]
--- NOTE | 2019-03-29 20:39 | Diagnostic Imaging Report ---
INDICATION: Severe abdominal pain TECHNIQUE: Supine and upright views of the abdomen are obtained with single view of the chest. FINDINGS: The lungs appear clear. There are surgical changes in the cervical spine. Overall bowel gas pattern is unremarkable without evidence of obstruction. There is no evidence of free intraperitoneal gas or pneumatosis. Surgical changes are noted in the pelvis. IMPRESSION: No acute abnormality is detected. Dictated by: Dictated on workstation # [id number]
--- NOTE | 2019-03-29 20:41 | NUR ---
pt resting in bed, denies needs at this time. reports pain improved.
[2019-03-29] MEDS ORDERED: PANTOPRAZOLE 40 MG (PROTONIX) VIAL IV ONE (20:45)
[2019-03-29] MEDS ORDERED: KCL 10 MEQ TAB (MICRO K) PO ONE (20:45)
[2019-03-29] MEDS ORDERED: DICY10CA12 PO (20:49)
[2019-03-29] MEDS ORDERED: PANT40TA2 PO (20:49)
[2019-03-29] MEDS ORDERED: ONDA8TAB13 PO (20:49)
[2019-03-29] MEDS ORDERED: HYOS0.1283 SL (20:49)
[2019-03-29] MEDS ORDERED: KETOROLAC 30 MG/ML VIAL IVP ONE (21:00)
--- NOTE | 2019-03-29 21:29 | NUR ---
pt given ice, denies other needs at this time.
--- NOTE | 2019-03-29 21:53 | NUR ---
iv fluids infusing without difficulty. warm blanket provided. pt denies other needs at this time.
[2019-03-29 22:02] VITALS: BP 90/64
== END 2019-03-29 22:08 | disposition home or self-care (01) ==
LOC: EDUNIT# 19:16 → ER 19:17
DX: N83.202 Unspecified ovarian cyst, left side (principal); N18.3 Chronic kidney disease, stage 3 (moderate); E87.6 Hypokalemia; F41.9 Anxiety disorder, unspecified; F32.9 Major depressive disorder, single episode, unspecified; D64.9 Anemia, unspecified; J45.909 Unspecified asthma, uncomplicated; G43.909 Migraine, unspecified, not intractable, without status migrainosus; M54.16 Radiculopathy, lumbar region; K21.9 Gastro-esophageal reflux disease without esophagitis; K58.9 Irritable bowel syndrome, unspecified; Z88.8 Allergy status to other drugs, medicaments and biological substances; Z82.49 Family history of ischemic heart disease and other diseases of the circulatory system; Z88.5 Allergy status to narcotic agent; Z80.52 Family history of malignant neoplasm of bladder; Z87.19 Personal history of other diseases of the digestive system; Z88.2 Allergy status to sulfonamides; Z87.891 Personal history of nicotine dependence; Z98.1 Arthrodesis status; Z96.0 Presence of urogenital implants; Z87.448 Personal history of other diseases of urinary system; Z90.49 Acquired absence of other specified parts of digestive tract; Z90.89 Acquired absence of other organs; Z90.710 Acquired absence of both cervix and uterus
CPT/HCPCS: 36415; 74022; 74176; 80053; 80306; 81000; 82150; 83690; 85025; 96361; 96374; 96375; 96376

== ENCOUNTER → 2019-04-12 | Outpatient (CLI) | payer MEDICAID ==
[~2019-04-12] MED LIST changes: +DEXT10TA9 PO; +VORT5TAB PO
--- NOTE | 2019-04-12 13:11 | Diagnostic Imaging Report ---
PROCEDURE: US Gallbladder. TECHNIQUE: Multiple real-time grayscale images were obtained over the right upper quadrant in various projections. INDICATION: Right upper quadrant abdominal pain. COMPARISON: CT dated March 29, 2019. FINDINGS: The liver is unremarkable without focal hepatic mass. The gallbladder is unremarkable without evidence of gallstones, gallbladder wall thickening, or pericholecystic fluid. The common bile duct is within normal limits measuring 0.4 cm. Visualized portions of the pancreas are unremarkable. A 0.7 cm round thin-walled anechoic cyst is noted within the inferior pole of the right kidney. Otherwise, the right kidney is unremarkable without evidence of hydronephrosis. No significant free fluid. Negative sonographic Granados's sign. Visualized portions of the aorta and inferior vena cava are unremarkable. Normal direction of flow within the main portal vein. IMPRESSION: Tiny right renal cyst. Otherwise, unremarkable examination without acute abnormality. Dictated by: Dictated on workstation # [id number]
--- NOTE | 2019-04-12 13:23 | Diagnostic Imaging Report ---
PROCEDURE: US Non-ob pelvis comp/trans. TECHNIQUE: Multiple realtime grayscale images were obtained of the pelvis in various projections endovaginally. Transabdominal imaging was also performed. INDICATION: Pelvic pain. History of hysterectomy one year ago. COMPARISON: None available. FINDINGS: Status post hysterectomy. No soft tissue or cystic mass within the pelvis. The left ovary measures 1.7 x 2.1 x 3.0. There is a simple follicle within the left ovary measuring up to 1.7 cm. Blood flow is present in the left ovary by color Doppler imaging. Right ovary is not visualized. No free pelvic fluid. IMPRESSION: 1. Hysterectomy. 2. Nonvisualized right ovary. This could be due to right oophorectomy versus obscuration from surrounding bowel gas. 3. Normal left ovary. Dictated by: Dictated on workstation # [id number]
== END ==
LOC: RAD 09:55
PROVIDERS: ATTEND Nurse Practitioner Community Health
DX: R10.2 Pelvic and perineal pain (principal); R10.11 Right upper quadrant pain; Z90.710 Acquired absence of both cervix and uterus
CPT/HCPCS: 76705; 76830; 76856

== ENCOUNTER 2019-06-01 14:54 | Outpatient (RCR) | payer MEDICAID ==
[2019-06-01 14:30] LABS: BASOPHILS % (AUTO) 0 % (0-10); EOSINOPHILS # (AUTO) 0.1 10^3/uL (0.0-0.3); EOSINOPHILS % (AUTO) 2 % (0-10); HEMATOCRIT 35 % (35-52); HEMOGLOBIN 11.7 G/DL (11.5-16.0); LYMPHOCYTES # (AUTO) 1.6 X 10^3 (1.0-4.0); LYMPHOCYTES % (AUTO) 34 % (12-44); MEAN CORPUSCULAR HEMOGLOBIN 31 PG (25-34); MEAN CORPUSCULAR HGB CONC 34 G/DL (32-36); MEAN CORPUSCULAR VOLUME 93 FL (80-99); MEAN PLATELET VOLUME 10.8 FL (7.4-10.4); MONOCYTES # (AUTO) 0.2 X 10^3 (0.0-1.0); MONOCYTES % (AUTO) 5 % (0-12); NEUTROPHILS # (AUTO) 2.8 X 10^3 (1.8-7.8); NEUTROPHILS % (AUTO) 59 % (42-75); PLATELET COUNT 214 10^3/uL (130-400); RED CELL DISTRIBUTION WIDTH 12.2 % (10.0-14.5); WHITE BLOOD COUNT 4.8 10^3/uL (4.3-11.0)
[2019-06-01 14:54] LABS: ALBUMIN 4.1 GM/DL (3.2-4.5); BILIRUBIN,TOTAL 0.8 MG/DL (0.1-1.0); CALCIUM 8.6 MG/DL (8.5-10.1); CREATININE SERUM 1.09 MG/DL (0.60-1.30); POTASSIUM 3.2 MMOL/L (3.6-5.0); TOTAL PROTEIN 6.8 GM/DL (6.4-8.2)
== END 2019-08-30 | disposition home or self-care (01) ==
LOC: ONC 14:54
PROVIDERS: ATTEND Internal Medicine Hematology & Oncology
DX: D72.829 Elevated white blood cell count, unspecified (principal); R21 Rash and other nonspecific skin eruption; R91.8 Other nonspecific abnormal finding of lung field; R59.9 Enlarged lymph nodes, unspecified; F41.9 Anxiety disorder, unspecified; J45.909 Unspecified asthma, uncomplicated; F32.9 Major depressive disorder, single episode, unspecified; Z79.899 Other long term (current) drug therapy
CPT/HCPCS: 36415; 80053; 85025; 99213

== ENCOUNTER → 2019-07-29 | Outpatient (CLI) | payer MEDICAID ==
[2019-07-29 17:07] LABS: BASOPHILS % (AUTO) 0 % (0-10); EOSINOPHILS # (AUTO) 0.1 10^3/uL (0.0-0.3); EOSINOPHILS % (AUTO) 2 % (0-10); HEMATOCRIT 38 % (35-52); HEMOGLOBIN 12.7 G/DL (11.5-16.0); LYMPHOCYTES # (AUTO) 1.8 X 10^3 (1.0-4.0); LYMPHOCYTES % (AUTO) 34 % (12-44); MEAN CORPUSCULAR HEMOGLOBIN 31 PG (25-34); MEAN CORPUSCULAR HGB CONC 34 G/DL (32-36); MEAN CORPUSCULAR VOLUME 92 FL (80-99); MEAN PLATELET VOLUME 11.3 FL (7.4-10.4); MONOCYTES # (AUTO) 0.3 X 10^3 (0.0-1.0); MONOCYTES % (AUTO) 6 % (0-12); NEUTROPHILS # (AUTO) 3.2 X 10^3 (1.8-7.8); NEUTROPHILS % (AUTO) 59 % (42-75); PLATELET COUNT 228 10^3/uL (130-400); RED CELL DISTRIBUTION WIDTH 11.6 % (10.0-14.5); WHITE BLOOD COUNT 5.5 10^3/uL (4.3-11.0)
[2019-07-29 17:10] LABS: BILIRUBIN,URINE NEGATIVE (NEGATIVE); CLARITY,URINE CLEAR; COLOR,URINE YELLOW; GLUCOSE, URINE (UA) NEGATIVE (NEGATIVE); KETONES,URINE NEGATIVE (NEGATIVE); LEUKOCYTE ESTERASE ,URINE 1+ (NEGATIVE); NITRITE,URINE NEGATIVE (NEGATIVE); PH,URINE 5 (5-9); PROTEIN,URINE 1+ (NEGATIVE); UROBILINOGEN,URINE NORMAL (NORMAL)
[2019-07-29 17:15] LABS: ALBUMIN 4.5 GM/DL (3.2-4.5); CREATININE SERUM 1.19 MG/DL (0.60-1.30); PHOSPHORUS 3.1 MG/DL (2.3-4.7); POTASSIUM 3.3 MMOL/L (3.6-5.0)
[2019-07-29 17:24] LABS: BACTERIA,URINE TRACE /HPF
[2019-07-29 17:25] LABS: CALCIUM OXALATE CRYSTALS,UR MODERATE /LPF; HYALINE CASTS, URINE 0-2 /LPF
== END ==
LOC: LAB 15:44
PROVIDERS: ATTEND Internal Medicine
DX: I12.9 Hypertensive chronic kidney disease with stage 1 through stage 4 chronic kidney disease, or unspecified chronic kidney disease (principal); N18.3 Chronic kidney disease, stage 3 (moderate); D63.1 Anemia in chronic kidney disease; I47.1 Supraventricular tachycardia; E78.5 Hyperlipidemia, unspecified; I27.20 Pulmonary hypertension, unspecified
CPT/HCPCS: 36415; 80069; 81000; 82306; 82570; 83970; 84156; 85025; 87088

== ENCOUNTER 2020-08-26 08:34 | Emergency (ER) | payer MEDICAID ==
[~2020-08-26] VITALS: Ht 167 cm; Wt 63.5 kg
[~2020-08-26 08:34] MED LIST changes: -OXYC-465 PO; +OXYC-556 PO
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
--- NOTE | 2020-08-26 10:08 | Diagnostic Imaging Report ---
INDICATION: Mid forearm pain EXAMINATION: Right forearm from 08/26/2020 FINDINGS: 2 views of the forearm FINDINGS: There is no evidence for an acute fracture or dislocation. The joint spaces are well maintained. There is no significant soft tissue swelling. IMPRESSION: No acute process. Dictated by: Dictated on workstation # [id number]
[2020-08-26 11:13] VITALS: BP 110/76
== END 2020-08-26 11:15 | disposition home or self-care (01) ==
LOC: EDUNIT# 08:34 → ER 08:34
DX: S50.11XA Contusion of right forearm, initial encounter (principal); F32.9 Major depressive disorder, single episode, unspecified; K21.9 Gastro-esophageal reflux disease without esophagitis; Z82.61 Family history of arthritis; Z82.49 Family history of ischemic heart disease and other diseases of the circulatory system; Z80.52 Family history of malignant neoplasm of bladder; Z87.891 Personal history of nicotine dependence; Z88.2 Allergy status to sulfonamides; Z88.5 Allergy status to narcotic agent; Z88.8 Allergy status to other drugs, medicaments and biological substances; Y04.2XXA Assault by strike against or bumped into by another person, initial encounter
CPT/HCPCS: 73090; 99282; A4565

== ENCOUNTER 2021-08-28 19:22 | Emergency (ER) | payer OTHER, MEDICAID ==
[~2021-08-28] VITALS: Ht 165.1 cm; Wt 65.8 kg
[2021-08-28 19:45] LABS: BASOPHILS % (AUTO) 1 % (0-10); EOSINOPHILS # (AUTO) 0.1 10^3/uL (0.0-0.3); EOSINOPHILS % (AUTO) 2 % (0-10); HEMATOCRIT 36 % (35-52); HEMOGLOBIN 12.1 g/dL (11.5-16.0); LYMPHOCYTES # (AUTO) 1.3 10^3/uL (1.0-4.0); LYMPHOCYTES % (AUTO) 26 % (12-44); MEAN CORPUSCULAR HEMOGLOBIN 32 pg (25-34); MEAN CORPUSCULAR HGB CONC 34 g/dL (32-36); MEAN CORPUSCULAR VOLUME 94 fL (80-99); MEAN PLATELET VOLUME 10.7 fL (9.0-12.2); MONOCYTES # (AUTO) 0.4 10^3/uL (0.0-1.0); MONOCYTES % (AUTO) 9 % (0-12); NEUTROPHILS # (AUTO) 3.1 10^3/uL (1.8-7.8); NEUTROPHILS % (AUTO) 63 % (42-75); PLATELET COUNT 206 10^3/uL (130-400)
[2021-08-28] MEDS ORDERED: NS 100 ML (IVPB) BAG IV ONE (19:45)
[2021-08-28] MEDS ORDERED: IOHEXOL 350 MG/ML 100 ML (OMNIPAQUE 350) VIAL IV ONE (19:45)
[2021-08-28] MEDS ORDERED: HOLD METFORMIN - RECEIVED CONTRAST 20 ML VIAL IV SCH (19:45)
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
[2021-08-28 19:52] LABS: BILIRUBIN,URINE NEGATIVE (NEGATIVE); CLARITY,URINE CLEAR; COLOR,URINE YELLOW; GLUCOSE, URINE (UA) NEGATIVE (NEGATIVE); KETONES,URINE NEGATIVE (NEGATIVE); LEUKOCYTE ESTERASE ,URINE NEGATIVE (NEGATIVE); NITRITE,URINE NEGATIVE (NEGATIVE); PROTEIN,URINE NEGATIVE (NEGATIVE)
[2021-08-28 20:04] LABS: AMPHETAMINE SCREEN, URINE POSITIVE (NEGATIVE); BARBITURATE SCREEN URINE NEGATIVE (NEGATIVE); BENZODIAZEPINES SCREEN URINE NEGATIVE (NEGATIVE); CANNABINOID SCREEN, URINE POSITIVE (NEGATIVE); COCAINE SCREEN URINE NEGATIVE (NEGATIVE); METHADONE STAT NEGATIVE (NEGATIVE); METHAMPHETAMINE SCREEN URINE S NEGATIVE (NEGATIVE); OPIATE SCREEN URINE NEGATIVE (NEGATIVE); OXYCODONE STAT NEGATIVE (NEGATIVE); PROPOXYPHENE STAT NEGATIVE (NEGATIVE); TRICYCLIC ANTIDEPRESSANTS SCRE NEGATIVE (NEGATIVE)
[2021-08-28 20:08] LABS: ALANINE AMINOTRANSFERASE 18 U/L (0-55); ALBUMIN 3.9 GM/DL (3.2-4.5); ALKALINE PHOSPHATASE 36 U/L (40-136); BILIRUBIN,TOTAL 0.9 MG/DL (0.1-1.0); BUN/CREATININE RATIO 10; CALCIUM 8.8 MG/DL (8.5-10.1); CARBON DIOXIDE 26 MMOL/L (21-32); CHLORIDE 104 MMOL/L (98-107); CREATININE SERUM 1.13 MG/DL (0.60-1.30); GFR ESTIMATED 53; GLUCOSE 115 MG/DL (70-105); POTASSIUM 3.2 MMOL/L (3.6-5.0); SODIUM 138 MMOL/L (135-145); TOTAL PROTEIN 6.9 GM/DL (6.4-8.2)
[2021-08-28 20:12] LABS: BACTERIA,URINE FEW /HPF; RBC,URINE 0-2 /HPF
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
[2021-08-28 22:08] VITALS: BP 134/73
== END 2021-08-28 22:08 | disposition home or self-care (01) ==
LOC: EDUNIT# 19:22 → ER 19:23
DX: S16.1XXA Strain of muscle, fascia and tendon at neck level, initial encounter (principal); J45.909 Unspecified asthma, uncomplicated; F03.90 Unspecified dementia, unspecified severity, without behavioral disturbance, psychotic disturbance, mood disturbance, and anxiety; K21.9 Gastro-esophageal reflux disease without esophagitis; F32.9 Major depressive disorder, single episode, unspecified; Z79.899 Other long term (current) drug therapy; V89.2XXA Person injured in unspecified motor-vehicle accident, traffic, initial encounter
CPT/HCPCS: 70450; 71260; 72125; 74177; 80053; 80306; 81000; 84703; 85025; 87088; 99284; G0480; 36415; 80320; 87186

== ENCOUNTER 2021-09-02 16:32 | Inpatient (IN) | payer MEDICAID, OTHER ==
[~2021-09-02] VITALS: Ht 167 cm; Wt 66.0 kg
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
[2021-09-02 17:04] LABS: HEMATOCRIT 38 % (35-52); HEMOGLOBIN 12.9 g/dL (11.5-16.0); MEAN CORPUSCULAR HEMOGLOBIN 32 pg (25-34); MEAN CORPUSCULAR HGB CONC 34 g/dL (32-36); MEAN CORPUSCULAR VOLUME 92 fL (80-99); MEAN PLATELET VOLUME 11.1 fL (9.0-12.2); PLATELET COUNT 275 10^3/uL (130-400); WHITE BLOOD COUNT 9.8 10^3/uL (4.3-11.0)
--- NOTE | 2021-09-02 17:05 | Diagnostic Imaging Report ---
INDICATION: Injury to pelvis, fell from roof. FINDINGS: AP view pelvis shows no fracture or dislocation. IMPRESSION: Negative pelvis. Dictated by: Dictated on workstation # [id number]
--- NOTE | 2021-09-02 17:05 | Diagnostic Imaging Report ---
INDICATION: Chest injury, fall from roof. Portable chest 4:44 PM FINDINGS: Heart and mediastinum are normal. Lungs are clear. There are no effusions or pneumothoraces. IMPRESSION: Negative chest. Dictated by: Dictated on workstation # [id number]
[2021-09-02 17:11] LABS: BILIRUBIN,DIRECT 0.4 MG/DL (0.0-0.3)
[2021-09-02] MEDS ORDERED: NS 100 ML (IVPB) BAG IV ONE (17:15)
[2021-09-02] MEDS ORDERED: IOHEXOL 350 MG/ML 100 ML (OMNIPAQUE 350) VIAL IV ONE (17:15)
[2021-09-02] MEDS ORDERED: HOLD METFORMIN - RECEIVED CONTRAST 20 ML VIAL IV SCH (17:15)
[2021-09-02 17:23] LABS: ALBUMIN 4.3 GM/DL (3.2-4.5); POTASSIUM 3.1 MMOL/L (3.6-5.0)
[2021-09-02 17:24] LABS: CALCIUM 9.2 MG/DL (8.5-10.1)
[2021-09-02 17:25] LABS: TOTAL PROTEIN 7.5 GM/DL (6.4-8.2)
[2021-09-02 17:27] LABS: BILIRUBIN,INDIRECT 0.6 MG/DL
[2021-09-02 17:29] LABS: CREATININE SERUM 1.14 MG/DL (0.60-1.30)
--- NOTE | 2021-09-02 17:32 | Diagnostic Imaging Report ---
EXAMINATION: CT head and CT cervical spine without contrast. TECHNIQUE: Multiple contiguous axial images were obtained through the brain and cervical spine without the use of intravenous contrast. Sagittal and coronal reformations through the cervical spine were then performed. All CT scans use one or more of the following dose optimizing techniques: Automated exposure control, MA and/or KvP adjustment based on patient size and exam type or iterative reconstruction. HISTORY: Trauma. COMPARISON: 08/28/2021. FINDINGS: The salinas-white matter differentiation is normal. No mass effect or midline shift. The ventricles are normal in size and configuration. Basilar cisterns are patent. There are no intra- or extra-axial fluid collections. There is no intracranial hemorrhage. The orbits are normal. There is mild bilateral maxillary sinus mucosal disease. Mastoid air cells are clear. No soft tissue abnormality is seen. No osseous lesions or fractures are seen. The alignment of the cervical spine is normal. No fracture is seen. Vertebral body heights are normal. The craniocervical junction is normal. There is mild degenerative disease in the cervical spine. There is anterior fusion of C5-C6. There is no spinal canal stenosis. No soft tissue abnormality is seen in the neck. Limited views of the superior thorax are normal. IMPRESSION: 1. No acute intracranial abnormality. 2. No cervical spine fracture. Dictated by: Dictated on workstation # [id number]
[2021-09-02] MEDS ORDERED: NS IV 1000 ML 1,000 ML ONE (17:36)
--- NOTE | 2021-09-02 17:36 | Diagnostic Imaging Report ---
EXAMINATION: CT chest, abdomen and pelvis with intravenous contrast. TECHNIQUE: Multiple contiguous axial images were obtained through the chest, abdomen and pelvis after the uneventful administration of intravenous contrast. All CT scans use one or more of the following dose optimizing techniques: Automated exposure control, MA and/or KvP adjustment based on patient size and exam type or iterative reconstruction. HISTORY: Fall. COMPARISON: 08/28/2021. FINDINGS: There is no edema or pneumonia. No pleural effusion. No pneumothorax. No suspicious nodules. There is no axillary or supraclavicular lymphadenopathy. There is no mediastinal lymphadenopathy. Heart size is normal. There are no coronary artery calcifications. No pericardial effusion. Aorta is normal in caliber. The liver is normal without focal lesion. There is no biliary ductal dilation. Gallbladder is normal. Pancreas is normal. Spleen is normal. Adrenal glands are normal. The kidneys are normal. There is no hydronephrosis. Urinary bladder is normal. Visualized bowel is normal in caliber without obstruction or inflammation. There appears to be a suture line in the rectum. No free fluid or air. No abdominal or pelvic lymphadenopathy. Aorta is normal in caliber without aneurysm. There are no suspicious osseous lesions. There are left L2 and L3 transverse process fractures. IMPRESSION: 1. Left L2 and L3 transverse process fractures. No other traumatic injuries seen. Dictated by: Dictated on workstation # [id number]
--- NOTE | 2021-09-02 17:39 | Diagnostic Imaging Report ---
INDICATION: Left leg injury, fell from roof. FINDINGS: AP and lateral views of the left femur show no fracture, dislocation, or other acute abnormalities. IMPRESSION: Negative left femur. Dictated by: Dictated on workstation # [id number]
--- NOTE | 2021-09-02 17:39 | Diagnostic Imaging Report ---
INDICATION: Left knee injury, fell from roof. FINDINGS: AP and lateral views of the left tibia and fibula show no fracture or dislocation. IMPRESSION: Negative left tibia and fibula. Dictated by: Dictated on workstation # [id number]
[2021-09-02] MEDS: fentaNYL INJ 100 MCG/2 ML AMP ONE ×2 (17:40→17:49)
--- NOTE | 2021-09-02 17:43 | Diagnostic Imaging Report ---
EXAMINATION: CT thoracic and lumbar spine without contrast. TECHNIQUE: Multiple contiguous axial images were obtained through the thoracic and lumbar spine without the use of intravenous contrast. Sagittal and coronal reformations were then performed. All CT scans use one or more of the following dose optimizing techniques: automated exposure control, MA and/or KvP adjustment based on patient size and exam type or iterative reconstruction. HISTORY: Fall. COMPARISON: None available. FINDINGS: The alignment of the thoracic and lumbar spine is normal. Vertebral body heights are normal. There are left L2 and L3 transverse process fractures. Facet joints are normal. Disk heights are normal. There is no spinal canal stenosis. Limited views of the soft tissues show no abnormality. The aorta is normal. IMPRESSION: 1. Left L2 and L3 transverse process fractures. Dictated by: Dictated on workstation # [id number]
[2021-09-02] MEDS ORDERED: fentaNYL INJ 100 MCG/2 ML AMP IVP ONE (17:45)
[2021-09-02] MEDS ORDERED: NS IV 1000 ML 1,000 ML IV ONE (17:45)
[2021-09-02] MEDS ORDERED: ORPHENADRINE 60 MG/2 ML (NORFLEX) AMP (ED ONLY) IVP ONE (18:15)
[2021-09-02] MEDS ORDERED: KETOROLAC 30 MG/ML VIAL IVP ONE (18:15)
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
[2021-09-02] MEDS ORDERED: LACTATED RINGERS 1,000 ML IV ONE (18:29)
[2021-09-02] MEDS: LACTATED RINGERS 1,000 ML IV SCH (18:38)
[2021-09-02 19:42] VITALS: BP 98/66
[2021-09-02] MEDS: HYDROmorphone 2 MG/ML VIAL (DILAUDID) IV PRN ×2 (19:47→23:15)
[2021-09-02 22:58] VITALS: BP 105/59
[2021-09-03] VITALS (7 sets, daily range): BP systolic 89–105; BP diastolic 53–63
[2021-09-03] MEDS: KETOROLAC 30 MG/ML VIAL IVP SCH ×4 (03:22→21:46)
[2021-09-03] MEDS: HYDROmorphone 2 MG/ML VIAL (DILAUDID) IV PRN ×6 (03:26→17:43)
[2021-09-03] MEDS: LACTATED RINGERS 1,000 ML IV SCH ×3 (03:55→14:01)
[2021-09-03 05:50] LABS: BASOPHILS % (AUTO) 1 % (0-10); EOSINOPHILS # (AUTO) 0.1 10^3/uL (0.0-0.3); EOSINOPHILS % (AUTO) 3 % (0-10); HEMATOCRIT 31 % (35-52); HEMOGLOBIN 10.6 g/dL (11.5-16.0); LYMPHOCYTES % (AUTO) 47 % (12-44); MEAN CORPUSCULAR HEMOGLOBIN 32 pg (25-34); MEAN CORPUSCULAR HGB CONC 34 g/dL (32-36); MEAN CORPUSCULAR VOLUME 94 fL (80-99); MONOCYTES # (AUTO) 0.4 10^3/uL (0.0-1.0); MONOCYTES % (AUTO) 9 % (0-12); NEUTROPHILS # (AUTO) 1.7 10^3/uL (1.8-7.8); NEUTROPHILS % (AUTO) 40 % (42-75); PLATELET COUNT 191 10^3/uL (130-400); WHITE BLOOD COUNT 4.3 10^3/uL (4.3-11.0)
[2021-09-03 05:56] LABS: ALBUMIN 3.2 GM/DL (3.2-4.5); POTASSIUM 3.1 MMOL/L (3.6-5.0)
[2021-09-03 05:57] LABS: CALCIUM 8.1 MG/DL (8.5-10.1)
[2021-09-03 05:58] LABS: TOTAL PROTEIN 5.6 GM/DL (6.4-8.2)
[2021-09-03 06:00] LABS: BILIRUBIN,TOTAL 1.3 MG/DL (0.1-1.0)
[2021-09-03 06:02] LABS: CREATININE SERUM 0.96 MG/DL (0.60-1.30)
[2021-09-03] MEDS ORDERED: FLU QUADRIvalent (3YOA+) 60 mcg/0.5 ml 2021-22(AFLURIA) IM ONE (06:45)
--- NOTE | 2021-09-03 07:23 | Progress Note - Surgery ---
JYOTI HOWE 09/03/21 0723: Subjective Date Seen by a Provider: Sep 03, 2021 Time Seen by a Provider: 07:30 Subjective/Events-last exam PT is a 41 YO female, who is being followed by surgery after a fall from an extension ladder yesterday. PT reports pain is still at 10/10 and reports the pain medicine is "wearing off quicker". She reports no comfortable position she can rest in. The pain she feels is in the center of her mid to lower back, and also in her hips and pelvis. Pain medicine can make her pain better. PT also reports heat helps her pain, but cold does not help her pain and made it feel worse. She reports associated symptoms of shivering with her pain. The shivering gets worse when her pain increases. She reports numbness and tingling in her right arm and hand. She also states her right hand can feel swollen. She is able to state her location, age, first and last name, and the year. The patient has not had a BM since she came to the hospital. She has only urinated once since coming to the hospital and she reports urinary pain during that void. Review of Systems General: Chills (chills increase in intensitiy with increasing level of pain ); No Night Sweats HEENT: No Head Aches, No Visual Changes Pulmonary: No Dyspnea, No Cough Cardiovascular: No: Chest Pain, Palpitations Gastrointestinal: Nausea (reports having nausea after her fall while at her house before coming to the hospital ), Vomiting (yesterday she vomit 2 times at her house after the fall ) Genitourinary: Dysuria; No Incontinence Musculoskeletal: back pain, leg pain (on left leg); No: foot pain Neurological: Numbness (right arm and hand ), Other (difficulty concentrating d/t pain ); No: Change in speech Objective Exam Vital Signs Date Time Temp Pulse Resp B/P (MAP) Pulse Ox O2 Delivery O2 Flow Rate FiO2 09/03/21 03:59 37.0 61 20 97/61 (73) 98 Room Air 09/03/21 00:21 36.6 72 21 105/59 (74) 98 Room Air 09/02/21 22:58 36.6 72 21 105/59 (74) 98 Room Air 09/02/21 19:42 36.8 60 22 98/66 (77) 99 Room Air 09/02/21 18:50 68 17 108/71 100 Room Air 09/02/21 16:35 36.8 67 20 115/85 (95) 100 Room Air 09/02/21 16:35 36.8 67 20 115/85 (95) 100 Room Air I & O 09/03/21 07:00 Intake Total 2040 ml Balance 2040 ml Capillary Refill : Less Than 3 Seconds General Appearance: No Apparent Distress, WD/WN HEENT: PERRL/EOMI, Other (dry mucous membrane of mouth ) Neck: Full Range of Motion, Non Tender, Supple, Tender Lateral (right side ), Tender Midline (right side ) Respiratory: Chest Non Tender, Lungs Clear, Normal Breath Sounds, No Accessory Muscle Use, No Respiratory Distress Cardiovascular: Regular Rate, Rhythm, No Edema, No Murmur, Normal Peripheral Pulses Peripheral Pulses: 2+ Dorsalis Pedis (R), 2+ Left Dors-Pedis (L), 2+ Radial Pulses (R), 2+ Radial Pulses (L) Gastrointestinal: soft, no organomegaly, no pulsatile mass, tenderness (right and left lower quadrant pain, right side worse ) Extremity: Normal Capillary Refill, Normal Inspection, Normal Range of Motion, Swelling (right arm swollen compared to left ), Other (tenderness on left calf, and tenderness on right ankle ) Neurologic/Psychiatric: Alert, Oriented x3, No Motor/Sensory Deficits, Normal 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, 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 Norm as Tested Skin: Normal Color, Warm/Dry Lymphatic: No Adenopathy Results Lab Laboratory Tests 09/02/21 16:42: White Blood Count 9.8, Red Blood Count 4.10, Hemoglobin 12.9, Hematocrit 38, Mean Corpuscular Volume 92, Mean Corpuscular Hemoglobin 32, Mean Corpuscular Hemoglobin Concent 34, Red Cell Distribution Width 12.1, Platelet Count 275, Mean Platelet Volume 11.1, Sodium Level 138, Potassium Level 3.1L, Chloride Level 103, Carbon Dioxide Level 23, Anion Gap 12, Blood Urea Nitrogen 14, Creatinine 1.14, Estimat Glomerular Filtration Rate 52, BUN/Creatinine Ratio 12, Glucose Level 109H, Calcium Level 9.2, Total Bilirubin 1.0, Direct Bilirubin 0.4H, Indirect Bilirubin 0.6, Aspartate Amino Transf (AST/SGOT) 20, Alanine Aminotransferase (ALT/SGPT) 19, Alkaline Phosphatase 38L, Total Protein 7.5, Albumin 4.3, Serum Test, Qualitative NEGATIVE, Serum Alcohol < 10 09/03/21 05:21: White Blood Count 4.3, Red Blood Count 3.31L, Hemoglobin 10.6L, Hematocrit 31L, Mean Corpuscular Volume 94, Mean Corpuscular Hemoglobin 32, Mean Corpuscular Hemoglobin Concent 34, Red Cell Distribution Width 12.2, Platelet Count 191, Mean Platelet Volume 11.0, Sodium Level 137, Potassium Level 3.1L, Chloride Level 106, Carbon Dioxide Level 21, Anion Gap 10, Blood Urea Nitrogen 12, Creatinine 0.96, Estimat Glomerular Filtration Rate 64, BUN/Creatinine Ratio 13, Glucose Level 94, Calcium Level 8.1L, Total Bilirubin 1.3H, Aspartate Amino Transf (AST/SGOT) 14, Alanine Aminotransferase (ALT/SGPT) 15, Alkaline Phosphatase 29L, Total Protein 5.6L, Albumin 3.2, Immature Granulocyte % (Auto) 1, Neutrophils (%) (Auto) 40L, Lymphocytes (%) (Auto) 47H, Monocytes (%) (Auto) 9, Eosinophils (%) (Auto) 3, Basophils (%) (Auto) 1, Neutrophils # (Auto) 1.7L, Lymphocytes # (Auto) 2.0, Monocytes # (Auto) 0.4, Eosinophils # (Auto) 0.1, Basophils # (Auto) 0.0, Immature Granulocyte # (Auto) 0.0, Corrected Calcium 8.7 Assessment/Plan Assessment/Plan Assessment/Plan Fall from roof, Type I Trauma Activation Mid and Low back pain Pain with deep breath L2- L3 Transverse process fracture on left Will continue Toradol and Dilaudid. PT will start IS use today. PT will be at risk for atelectasis and pneumonia because of pain with breathing. PT today will start her on a back brace. Continue clears and will increase as tolerated. TERENCE JOHNSON DO 09/03/21 1234: Subjective Time Seen by a Provider: 12:16 Subjective/Events-last exam Pt seen and examined, pain is better since I changed regimen; however, when I saw her she looked over-medicated. Still complaining of severe back pain; she did get back brace which has helped her and did walk with PT. Review of Systems General: Chills (chills increase in intensitiy with increasing level of pain ); No Night Sweats HEENT: No Head Aches, No Visual Changes Pulmonary: No Dyspnea, No Cough Cardiovascular: No: Chest Pain, Palpitations Gastrointestinal: No: Nausea (reports having nausea after her fall while at her house before coming to the hospital ), Vomiting (yesterday she vomit 2 times at her house after the fall ) Objective Exam General Appearance: No Apparent Distress, WD/WN HEENT: PERRL/EOMI Respiratory: Chest Non Tender, Lungs Clear, Normal Breath Sounds, No Accessory Muscle Use, No Respiratory Distress Cardiovascular: Regular Rate, Rhythm, No Murmur Gastrointestinal: soft, no organomegaly, tenderness (right and left lower quadrant pain, right side worse ) Extremity: Swelling (right arm swollen compared to left ), Other (tenderness on left calf, and tenderness on right ankle ) Assessment/Plan Assessment/Plan Assessment/Plan Fall from roof, Type I Trauma Activation Mid and Low back pain Pain with deep breath L2- L3 Transverse process fracture on left Will continue Toradol; changed Dilaudid to Q2 and started Oxycodone. PT will start IS use today. PT will be at risk for atelectasis and pneumonia because of pain with breathing. PT today will start her on a back brace. Continue clears and will increase as tolerated. Supervisory-Addendum Brief Verification & Attestation Participated in pt care: history, MDM, physical Personally performed: exam, history, MDM, supervision of care Care discussed with: Medical Student Procedures: n/a Verification and Attestation of Medical Student E/M Service A medical student performed and documented this service. I then reviewed and verified all information documented by the medical student and made modifications to such information, when appropriate. I personally performed a physical exam, medical decision making and then discussed any differences between the notes and made revisions as necessary to create one note. Terence Johnson , 09/03/21 , 12:32 JYOTI HOWE Sep 03, 2021 07:23 TERENCE JOHNSON DO Sep 03, 2021 12:34
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
[2021-09-03] MEDS: oxyCODONE/APAP 10/325MG (PERCOCET 10) TABLET PO PRN ×2 (10:13→21:46)
[2021-09-03] MEDS ORDERED: EMTR1TAB24 PO (10:45)
[2021-09-03] MEDS ORDERED: AMPH20TA2 PO (10:45)
[2021-09-03] MEDS ORDERED: CNC1KV IM (10:45)
[2021-09-03] MEDS ORDERED: METH-732 PO (10:45)
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
[2021-09-03] MEDS: ONDANSETRON 4 MG/2 ML (SDV) Z0FRAN IVP PRN (16:15)
[2021-09-03] MEDS ORDERED: METHOCARBAMOL 750 MG (ROBAXIN) TAB PO PRN (16:30)
[2021-09-03] MEDS ORDERED: PATIENT MAY USE OWN MEDS, ALL MC SCH (16:45)
[2021-09-04] MEDS: KETOROLAC 30 MG/ML VIAL IVP SCH ×2 (00:03→02:23)
[2021-09-04] MEDS: LACTATED RINGERS 1,000 ML IV SCH (03:01)
[2021-09-04 04:00] VITALS: BP 92/51
[2021-09-04] MEDS: oxyCODONE/APAP 10/325MG (PERCOCET 10) TABLET PO PRN ×2 (05:16→11:26)
[2021-09-04] MEDS: AMPHET PO SCH ×2 (06:31→11:30)
[2021-09-04] MEDS: DEXTR PO SCH ×2 (06:31→11:30)
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
[2021-09-04 07:49] VITALS: BP 114/72
[2021-09-04] MEDS: HYDROmorphone 2 MG/ML VIAL (DILAUDID) IV PRN (08:00)
[2021-09-04] MEDS ORDERED: TENOFOVIR PO SCH (09:00)
[2021-09-04] MEDS ORDERED: EMTRICITABINE PO SCH (09:00)
[2021-09-04] MEDS ORDERED: LINZESS 290 MCG CAPSULE PO SCH (09:00)
[2021-09-04] MEDS ORDERED: FUROSEMIDE 20 MG (LASIX) TAB PO SCH (09:00)
[2021-09-04 09:26] LABS: BASOPHILS % (AUTO) 1 % (0-10); EOSINOPHILS # (AUTO) 0.2 10^3/uL (0.0-0.3); EOSINOPHILS % (AUTO) 4 % (0-10); HEMATOCRIT 33 % (35-52); HEMOGLOBIN 10.8 g/dL (11.5-16.0); LYMPHOCYTES # (AUTO) 1.6 10^3/uL (1.0-4.0); LYMPHOCYTES % (AUTO) 36 % (12-44); MEAN CORPUSCULAR HEMOGLOBIN 31 pg (25-34); MEAN CORPUSCULAR HGB CONC 33 g/dL (32-36); MEAN CORPUSCULAR VOLUME 94 fL (80-99); MEAN PLATELET VOLUME 10.8 fL (9.0-12.2); MONOCYTES # (AUTO) 0.4 10^3/uL (0.0-1.0); MONOCYTES % (AUTO) 8 % (0-12); NEUTROPHILS # (AUTO) 2.4 10^3/uL (1.8-7.8); NEUTROPHILS % (AUTO) 52 % (42-75); PLATELET COUNT 178 10^3/uL (130-400); WHITE BLOOD COUNT 4.6 10^3/uL (4.3-11.0)
[2021-09-04] MEDS: ONDANSETRON 4 MG/2 ML (SDV) Z0FRAN IVP PRN ×2 (12:02→12:08)
[2021-09-04 12:19] VITALS: BP 107/56
[2021-09-04] MEDS ORDERED: NF-SKEL800 PO (13:13)
[2021-09-04] MEDS ORDERED: OXYC1TAB12 PO (13:13)
--- NOTE | 2021-09-04 13:15 | Discharge Inst-Surgical ---
Discharge Inst-Surgical Depart Medication/Instructions New, Converted or Re-Newed RX: Transmitted to Pharmacy Patient Instructions Follow up Appt: Make appointment for 1 week. [phone] Instructions: No lifting greater than 20 pounds. No strenuous activity. May shower in 24 hours, no tub bath or soaking. Use incentive spirometer at home as directed. No Smoking Symptoms to Report: Appetite Changes, Extremity Discoloration, Numbness/Tingling, Swelling Increased, Bleeding Excessive, Eyesight Changes, Pain Increased, Urine Color Change, Constipation(Persistent), Fever over 101 degree F, Pain/Pressure in chest, Urinating Difficulty, Cough Up/Vomit Blood, Heart Beat Irreg/Pounding, Pain/Pressure in jaw, Cramps in feet or legs, Lightheadedness, Pain/Pressure in shoulder, Diarrhea(Persistent), Memory Changes Suddenly, Questions/Concerns, Weight gain consecutive days, Dizziness/Fainting, Nausea/Vomiting, Shortness of Breath, Weight gain over 2 pounds If questions or concerns contact your physician Or seek help at emergency department. Activity Activity as Tolerated: Yes wear back brace, continue PT exercises Driving Instructions: No Driving/Refer to Dr. Morel Discharge Diet: No Restrictions Diet for 24 Hours: No Alcohol Diet After 24 Hours: Clear Liquid if Nauseous If Any Problems/Questions/Issu: Contact Your Physician, Go to Emergency Room Skin/Wound Care Infection Signs and Symptoms: Increased Swelling, Temperature Above 101 F Bathing Instructions: KEY Barboza DO Sep 04, 2021 13:15
--- NOTE | 2021-09-04 13:59 | Physical Therapy Progress Note ---
Therapy Progress Note PT checked on pt in pm, pt states she is DC this afternoon and has been walking throughout the day and doesn't want to complete therapy at this date. JEFFERY CHRISTIE KRAFT MILL OPERATOR Sep 04, 2021 13:59
--- NOTE | 2021-09-04 14:20 | Occ Therapy Progress Note ---
Therapy Progress Note OT checked on pt in pm, pt states that she is supposed to be DC'ing this afternoon and has been walking throughout the day. Pt politely declines any OT this date. Sona Claudio OT Sep 04, 2021 14:20
[2021-09-04 15:00] VITALS: BP 107/56
--- NOTE | 2021-09-10 09:07 | Physician Query-Final Dx ---
Final Diagnosis Give Final Diagnosis Please give Final Diagnosis AMADO COSTA Sep 10, 2021 09:07
== END 2021-09-04 13:11 | disposition home or self-care (01) | DRG 552 ==
LOC: EDUNIT# 16:32 → ER 16:34 → 4TH 18:47 → UNDOADMOB 18:47 → 4TH 19:42 → UNDOADMOB 19:42 → UNDODISOB 09-04 13:11
PROVIDERS: ADMIT Surgery; ATTEND Surgery
DX: S32.029A Unspecified fracture of second lumbar vertebra, initial encounter for closed fracture (principal); S32.039A Unspecified fracture of third lumbar vertebra, initial encounter for closed fracture; J45.909 Unspecified asthma, uncomplicated; F03.90 Unspecified dementia, unspecified severity, without behavioral disturbance, psychotic disturbance, mood disturbance, and anxiety; N18.30 Chronic kidney disease, stage 3 unspecified; K21.9 Gastro-esophageal reflux disease without esophagitis; M19.91 Primary osteoarthritis, unspecified site; F41.9 Anxiety disorder, unspecified; F32.A Depression, unspecified; Z88.6 Allergy status to analgesic agent; Z88.2 Allergy status to sulfonamides; Z88.8 Allergy status to other drugs, medicaments and biological substances; Z82.61 Family history of arthritis; Z82.5 Family history of asthma and other chronic lower respiratory diseases; W13.2XXA Fall from, out of or through roof, initial encounter; Y92.018 Other place in single-family (private) house as the place of occurrence of the external cause
CPT/HCPCS: 36415; 70450; 71045; 71260; 72125; 72128; 72131; 72170; 73552; 73590; 74177; 80048; 80053; 80076; 80320; 84703; 85025; 85027; 86850; 86900; 86901; 93041; 96361; 96374; 96375; G0378

== ENCOUNTER 2022-05-03 21:09 | Emergency (ER) | payer MEDICAID ==
[~2022-05-03] VITALS: Ht 167 cm; Wt 67.0 kg
[~2022-05-03 21:09] MED LIST changes: +AMPH20TA2 PO; +CNC1KV IM; +EMTR1TAB24 PO; +METH-732 PO; +NF-SKEL800 PO; +OXYC1TAB12 PO
[2022-05-03] MEDS ORDERED: NS IV 1000 ML 1,000 ML IV STA ×2 (21:22→22:14)
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
[2022-05-03 21:34] LABS: BASOPHILS % (AUTO) 0 % (0-10); EOSINOPHILS % (AUTO) 0 % (0-10); HEMATOCRIT 41 % (35-52); HEMOGLOBIN 14.1 g/dL (11.5-16.0); LYMPHOCYTES # (AUTO) 0.5 10^3/uL (1.0-4.0); LYMPHOCYTES % (AUTO) 9 % (12-44); MEAN CORPUSCULAR HEMOGLOBIN 32 pg (25-34); MEAN CORPUSCULAR HGB CONC 34 g/dL (32-36); MEAN CORPUSCULAR VOLUME 94 fL (80-99); MEAN PLATELET VOLUME 10.5 fL (9.0-12.2); MONOCYTES # (AUTO) 0.2 10^3/uL (0.0-1.0); MONOCYTES % (AUTO) 3 % (0-12); NEUTROPHILS # (AUTO) 4.8 10^3/uL (1.8-7.8); NEUTROPHILS % (AUTO) 88 % (42-75); PLATELET COUNT 197 10^3/uL (130-400); WHITE BLOOD COUNT 5.5 10^3/uL (4.3-11.0)
[2022-05-03 21:48] LABS: CLARITY,URINE CLEAR; COLOR,URINE YELLOW; GLUCOSE, URINE (UA) NEGATIVE (NEGATIVE); KETONES,URINE TRACE (NEGATIVE); LEUKOCYTE ESTERASE ,URINE TRACE (NEGATIVE); NITRITE,URINE POSITIVE (NEGATIVE); PROTEIN,URINE NEGATIVE (NEGATIVE)
[2022-05-03 21:49] LABS: ALBUMIN 3.6 GM/DL (3.2-4.5); POTASSIUM 3.4 MMOL/L (3.6-5.0)
[2022-05-03 21:50] LABS: CALCIUM 8.1 MG/DL (8.5-10.1)
[2022-05-03 21:51] LABS: TOTAL PROTEIN 6.7 GM/DL (6.4-8.2)
[2022-05-03 21:53] LABS: BILIRUBIN,TOTAL 1.7 MG/DL (0.1-1.0)
[2022-05-03 21:55] LABS: CREATININE SERUM 1.17 MG/DL (0.60-1.30)
[2022-05-03 21:58] LABS: MAGNESIUM 1.6 MG/DL (1.6-2.4)
[2022-05-03 21:58] LABS: BILIRUBIN,URINE 1+ (NEGATIVE)
[2022-05-03 22:00] LABS: BACTERIA,URINE LARGE /HPF; RBC,URINE 0-2 /HPF
[2022-05-03 22:01] LABS: AMPHETAMINE SCREEN, URINE POSITIVE (NEGATIVE); BARBITURATE SCREEN URINE NEGATIVE (NEGATIVE); BENZODIAZEPINES SCREEN URINE NEGATIVE (NEGATIVE); CANNABINOID SCREEN, URINE NEGATIVE (NEGATIVE); COCAINE SCREEN URINE NEGATIVE (NEGATIVE); METHADONE STAT NEGATIVE (NEGATIVE); OPIATE SCREEN URINE NEGATIVE (NEGATIVE); OXYCODONE STAT NEGATIVE (NEGATIVE); PROPOXYPHENE STAT NEGATIVE (NEGATIVE); TRICYCLIC ANTIDEPRESSANTS SCRE NEGATIVE (NEGATIVE)
[2022-05-03] MEDS ORDERED: cefTRIAXone 1 GM PRE-MIX 50 ML IV STA (22:03)
[2022-05-03 22:06] LABS: EOSINOPHILS % (MANUAL) 1 %; LYMPHOCYTES % (MANUAL) 11 %; MONOCYTES % (MANUAL) 5 %; NEUTROPHILS % (MANUAL) 83 %; RBC MORPH NORMAL; TOXIC GRANULATION/VACUOLAZATIO 1+
[2022-05-03] MEDS ORDERED: CEPH500T PO (22:13)
[2022-05-03] MEDS ORDERED: NS IV 1000 ML 1,000 ML ONE (22:18)
[2022-05-03 22:44] VITALS: BP 106/63
[2022-05-03] MEDS ORDERED: ONDA4TAB11 PO (22:45)
[2022-05-03] MEDS ORDERED: ONDANSETRON 4 MG/2 ML (SDV) Z0FRAN IVP ONE (22:45)
== END 2022-05-03 22:48 | disposition home or self-care (01) ==
LOC: EDUNIT# 21:09 → ER 21:10
DX: N39.0 Urinary tract infection, site not specified (principal); Z20.822 Contact with and (suspected) exposure to COVID-19; Z90.49 Acquired absence of other specified parts of digestive tract; Z90.710 Acquired absence of both cervix and uterus
CPT/HCPCS: 36415; 80053; 80306; 81000; 83690; 83735; 85007; 85027; 86141; 87077; 87088; 87184; 87186; 87636